=== PATIENT | female | born 1965 | race Caucasian/White ===

== ENCOUNTER 2016-11-05 19:27 | Inpatient (IN) | payer OTHER ==
[~2016-11-05] VITALS: Ht 170.2 cm; Wt 83.1 kg
[~2016-11-05 19:27] MED LIST: ACET-1256 PO; AMPH10TA2 PO; AMPH30CA3 PO; ARTICHOKE EXTRACT PO; ASPI81TA28 PO; ATV1 PO; BIOTCAP2 PO; BUME1TAB PO; CHOL100010 PO; CLR10 PO; DLC5 OR; INSUINJ12 SC; INSUINJ12 SQ; LINA1CAP PO; METO-157 PO; METO25TA56 PO; NVLGI SC; OMEGCAP2 PO; ONDA8TAB7 PO; PANT40TA PO; PREN1TAB29 PO; PTDOPS OPB; THY/30 PO; TRVOPS OPB; VORT1TAB3 PO; ZNTT/150 PO
--- NOTE | 2016-11-05 19:46 | EMERGENCY ROOM VISIT NOTE ---
History Report prepared by Millie: Roman Morales Under the Supervision of: Dr. Kumar Menjivar D.O. First contact with patient: 19:38 Chief Complaint: ABNORMAL LABS Stated Complaint: HIGH POSTASSIUM-REFERRED History of Present Illness The patient is a 51 year old female who presents to the Emergency Room with complaints of abnormal labs that began over the past couple of weeks. The patient's potassium level is 5.8. Over the past weeks, her kidney function has been worsening. She has a history of stage three kidney disease, CHF, and fluid retention. She was referred her by her PCP. She is taking Bumex currently for her kidney function. Her kidney's have been strained ever since she had a CABG in 2012. She is currently having leg edema and shortness of breath. She denies any chest pain. Source of History: patient Onset: past couple of weeks Position: other (global) Symptom Intensity: 5.8 Potassium Quality: other (Abnormal Labs) Timing: worsening Associated Symptoms: + SOB, No chest pain Note: She has leg edema. Review of Systems See HPI for pertinent positives & negatives. A total of 10 systems reviewed and were otherwise negative. Past Medical & Surgical Medical Problems: (1) ADD (attention deficit disorder) (2) Anxiety (3) CAD (coronary artery disease) (4) CHF exacerbation (5) CKD (chronic kidney disease) stage 3, GFR 30-59 ml/min (6) Depression (7) Diabetes mellitus type 1 (8) Dyslipidemia (9) GERD (gastroesophageal reflux disease) (10) Glaucoma (11) HTN (hypertension) (12) Hypothyroidism (13) Tobacco abuse Surgical Problems: (1) H/O nasal septoplasty (2) History of section (3) S/P CABG x 2 Family History Not pertinent due to age. Social History Smoking Status: Current Every Day Smoker Alcohol Use: none Drug Use: none Marital Status: Housing Status: lives with family Occupation Status: employed Current/Historical Medications Scheduled Acetaminophen (Tylenol), 1,000 MG PO QID Amphetamine-Dextroamphetamine 10MG (Adderall 10MG), 10 MG PO BID Amphetamine-Dextroamphetamine 30MG (Adderall Xr 30MG), 30 MG PO BID Aspirin (Aspirin Ec), 162 MG PO HS Biotin (Biotin 5000), 5 MG PO QPM Bisacodyl (Dulcolax *), 15 MG OR HS Bumetanide (Bumex), 1 MG PO Q2D Bumetanide (Bumex), 0.5 MG PO Q2D Cholecalciferol (Vitamin D), 5,000 INTER.UNIT PO QPM Cranberry (Vaccinium Macrocarp (Cranberry Extract), 500 MG PO QAM Estrog Conj/Medryoxyprog Acet (Prempro 0.3MG/1.5MG), 1 TAB PO QAM Insulin Aspart (Novolog), 1 UNIT SC AC Insulin Detemir (Levemir), 14 UNITS SQ BID Linaclotide (Linzess), 145 MCG PO QAM Liothyronine Sodium (Liothyronine Sodium), 10 MCG PO QAM Loratadine (Claritin), 10 MG PO QAM Lorazepam (Ativan *), 1 MG PO HS Metoclopramide Hcl (Reglan), 10 MG PO QID Metoprolol Tartrate (Lopressor) (Lopressor), 1.5 TAB PO BID Olopatadine Hydrochloride (Pataday), 1 DROPS OPB DAILY Ondansetron Tab (Zofran), 8 MG PO TID Pantoprazole (Protonix), 40 MG PO BID Prasterone (Dhea) (Dhea 50), 50 MG PO DAILY Ranitidine (Zantac), 150 MG PO BID Thyroid (Wp Thyroid), 65 MG PO QAM Travoprost (Travatan Oph Soln 0.004% *), 1 DROP OPB HS Vortioxetine HBr (Trintellix), 30 MG PO QAM Allergies Coded Allergies: Penicillins (Verified Allergy, Intermediate, BLOTCHY SKIN/ ITCHY, 11/05/16) Vancomycin (Unverified Allergy, Intermediate, SHORTNESS OF BREATH, 11/05/16) Clopidogrel (Verified Allergy, Mild, rash, 11/05/16) rash due to Plavix or ertapenem Ertapenem (Verified Allergy, Mild, rash, 11/05/16) rash due to Plavix or ertapenem? Cephalosporins (Verified Allergy, Unknown, CECLOR-UNKNOWN, 11/05/16) Erythromycin (Unverified Allergy, Unknown, FROM H AND P-RASH, 11/05/16) Statins (Unverified Allergy, Unknown, MYALGIA, 11/05/16) Codeine (Verified Adverse Reaction, Unknown, VOMITING, 3/6/17) Nitrofurantoin (Unverified Adverse Reaction, Unknown, vomiting, 11/05/16) Pregabalin (Unverified Adverse Reaction, Unknown, VERY EMOTIONAL CRYING, ) Physical Exam Vital Signs Date Time Temp Pulse Resp B/P Pulse Ox O2 Delivery O2 Flow Rate FiO2 11/05/16 20:55 85 11/05/16 20:54 85 20 169/88 97 Room Air 11/05/16 19:33 37.1 94 18 166/76 99 Room Air Physical Exam GENERAL: Patient is awake, alert, and in no acute distress. Patient is resting comfortably and showing no signs of anxiety EYES: The conjunctivae are clear. The pupils are round and reactive. EARS, NOSE, MOUTH AND THROAT: The nose is without any evidence of any deformity. Mucous membranes are dry tongue is midline NECK: The neck is nontender and supple. RESPIRATORY: Diminished with rales at both bases. CARDIOVASCULAR: Regular rate and rhythm noted there no murmurs rubs or gallops normal S1 normal S2 GASTROINTESTINAL: The abdomen is soft. Bowel sounds are present in all quadrants. Abdomen is nontender MUSCULOSKELETAL/EXTREMITIES: There is no evidence of gross deformity full range of motion is noted in the hips and shoulders SKIN: There is no obvious evidence of any rash. There are no petechiae, pallor or cyanosis noted. Trace pedal edema bilaterally. NEUROLOGIC: Patient is awake alert and oriented x3. Medical Decision & Procedures ER Provider Diagnostic Interpretation: X-ray results as stated below per interpretation by me and the radiologist. SINGLE VIEW CHEST CLINICAL HISTORY: Hyperkalemia. FINDINGS: An AP, portable, upright chest radiograph is compared to study dated 12/14/2015. The examination is mildly degraded by portable technique and patient rotation. The patient is status post midline sternotomy. The heart is enlarged and there is atherosclerotic calcification of the thoracic aorta. Mild pulmonary vascular congestion is observed. There are small pleural effusions with bibasilar consolidation. No pneumothorax is seen. The skeletal structures are osteopenic. The bony thorax is grossly intact. IMPRESSION: 1. Cardiomegaly with evidence of mild congestive failure. 2. Small pleural effusions with bibasilar consolidation. This likely represents atelectasis. Correlate clinically for evidence of a superimposed infectious/inflammatory pneumonitis. Electronically signed by: Jose Villarreal M.D. 11/05/2016 8:03 PM Dictated Date/Time: 11/05/2016 8:01 PM Laboratory Results 11/05/16 20:05 Red Blood Count 3.46, Mean Corpuscular Volume 91.6, Mean Corpuscular Hemoglobin 30.6, Mean Corpuscular Hemoglobin Concent 33.4, Mean Platelet Volume 9.1, Neutrophils (%) (Auto) 63.0, Lymphocytes (%) (Auto) 27.6, Monocytes (%) (Auto) 4.8, Eosinophils (%) (Auto) 3.9, Basophils (%) (Auto) 0.6, Neutrophils # (Auto) 5.73, Lymphocytes # (Auto) 2.51, Monocytes # (Auto) 0.44, Eosinophils # (Auto) 0.35, Basophils # (Auto) 0.05 11/05/16 20:05 Test 11/05/16 20:05 11/05/16 20:41 White Blood Count 9.09 K/uL (4.8-10.8) Red Blood Count 3.46 M/uL (4.2-5.4) Hemoglobin 10.6 g/dL (12.0-16.0) Hematocrit 31.7 % (37-47) Mean Corpuscular Volume 91.6 fL (80-100) Mean Corpuscular Hemoglobin 30.6 pg (25-34) Mean Corpuscular Hemoglobin Concent 33.4 g/dl (32-36) Platelet Count 275 K/uL (130-400) Mean Platelet Volume 9.1 fL (7.4-10.4) Neutrophils (%) (Auto) 63.0 % Lymphocytes (%) (Auto) 27.6 % Monocytes (%) (Auto) 4.8 % Eosinophils (%) (Auto) 3.9 % Basophils (%) (Auto) 0.6 % Neutrophils # (Auto) 5.73 K/uL (1.4-6.5) Lymphocytes # (Auto) 2.51 K/uL (1.2-3.4) Monocytes # (Auto) 0.44 K/uL (0.11-0.59) Eosinophils # (Auto) 0.35 K/uL (0-0.5) Basophils # (Auto) 0.05 K/uL (0-0.2) RDW Standard Deviation 43.1 fL (36.4-46.3) RDW Coefficient of Variation 12.8 % (11.5-14.5) Immature Granulocyte % (Auto) 0.1 % Immature Granulocyte # (Auto) 0.01 K/uL (0.00-0.02) Prothrombin Time 9.7 SECONDS (9.0-12.0) Prothromb Time International Ratio 0.9 (0.9-1.1) Activated Partial Thromboplast Time 24.1 SECONDS (21.0-31.0) Partial Thromboplastin Ratio 0.9 Anion Gap 11.0 mmol/L (3-11) Est Creatinine Clear Calc Drug Dose 36.5 ml/min Estimated GFR () 32.4 Estimated GFR (Non- 28.0 BUN/Creatinine Ratio 19.0 (10-20) Calcium Level 9.2 mg/dl (8.5-10.1) Phosphorus Level 4.8 mg/dl (2.5-4.9) Magnesium Level 2.1 mg/dl (1.8-2.4) Total Bilirubin 0.2 mg/dl (0.2-1) Direct Bilirubin < 0.1 mg/dl (0-0.2) Aspartate Amino Transf (AST/SGOT) 20 U/L (15-37) Alanine Aminotransferase (ALT/SGPT) 54 U/L (12-78) Alkaline Phosphatase 108 U/L (45-117) Total Creatine Kinase 342 U/L (26-192) Creatine Kinase MB 10.3 ng/ml (0.5-3.6) Creatine Kinase MB Ratio 3.0 (0-3.0) Troponin I 0.054 ng/ml (0-0.045) Pro-B-Type Natriuretic Peptide 66710 pg/ml (0-900) Total Protein 6.8 gm/dl (6.4-8.2) Albumin 3.9 gm/dl (3.4-5.0) Lipase 107 U/L (73-393) Urine Color YELLOW Urine Appearance CLEAR (CLEAR) Urine pH 5.0 (4.5-7.5) Urine Specific [place] 1.014 (1.000-1.030) Urine Protein 3+ (NEG) Urine Glucose (UA) 1+ (NEG) Urine Ketones NEG (NEG) Urine Occult Blood 2+ (NEG) Urine Nitrite NEG (NEG) Urine Bilirubin NEG (NEG) Urine Urobilinogen NEG (NEG) Urine Leukocyte Esterase NEG (NEG) Urine WBC (Auto) 1-5 /hpf (0-5) Urine RBC (Auto) 10-30 /hpf (0-4) Urine Hyaline Casts (Auto) 1-5 /lpf (0-5) Urine Epithelial Cells (Auto) 10-20 /lpf (0-5) Urine Bacteria (Auto) NEG (NEG) Laboratory results per my review. ECG Indication: other (Abnormal labs) Rate (beats per minute): 87 Rhythm: normal sinus Findings: RBBB (pattern noted), T-wave inversion (bilateral), no ectopy Comparison ECG Date: December, Change: T-wave inversions are new. ED Course 1937: The patient was evaluated in room B12. A complete history and physical examination were performed. 2055: The patient's potassium level is 5.3 and her creatinine is 2. 2136: Upon reevaluation, the patient is resting. I discussed results and treatment plan with her. She verbalizes agreement and understanding. [facility] The patient will be evaluated for further management and care. Medical Decision Differential diagnosis: Etiologies such as infections, reactive airway disease, pneumonia, pneumothorax , COPD, CHF, cardiac ischemia, pulmonary embolism, musculoskeletal, gastrointestinal, as well as others were entertained. Nursing notes reviewed. The patient's previous laboratory studies were also reviewed. The patient is a 51-year-old female who presented to the emergency department for an evaluation of shortness of breath. The patient states that she's been having problems with her renal function lately. She is had her medications changed recently to try to accommodate her worsening renal function. She had laboratory studies done as an outpatient which revealed an elevated potassium. Her creatinine continues to elevate. Her potassium was somewhat improved at this time. The patient's EKG showed changes which could be related to ischemia. The patient was reevaluated multiple times. I discussed the patient's laboratory radiographic studies with her including her elevated troponin and her abnormal EKG. I discussed her case with the on-call [facility]ist group. They have agreed to evaluate the patient in the emergency Department for further management and disposition. Impression Primary Impression: SOB (shortness of breath) Additional Impressions: Abnormal ECG Elevated troponin Acute kidney injury Hyperkalemia Scribe Attestation The scribe's documentation has been prepared under my direction and personally reviewed by me in its entirety. I confirm that the note above accurately reflects all work, treatment, procedures, and medical decision making performed by me. Departure Information Dispostion Being Evaluated By Hospitalist Referrals Devon Biggs D.O. (PCP) Patient Instructions [facility] Problem Qualifiers
--- NOTE | 2016-11-05 20:04 | DIAGNOSTIC IMAGING REPORT ---
SINGLE VIEW CHEST CLINICAL HISTORY: Hyperkalemia. FINDINGS: An AP, portable, upright chest radiograph is compared to study dated 12/14/2015. The examination is mildly degraded by portable technique and patient rotation. The patient is status post midline sternotomy. The heart is enlarged and there is atherosclerotic calcification of the thoracic aorta. Mild pulmonary vascular congestion is observed. There are small pleural effusions with bibasilar consolidation. No pneumothorax is seen. The skeletal structures are osteopenic. The bony thorax is grossly intact. IMPRESSION: 1. Cardiomegaly with evidence of mild congestive failure. 2. Small pleural effusions with bibasilar consolidation. This likely represents atelectasis. Correlate clinically for evidence of a superimposed infectious/inflammatory pneumonitis. Electronically signed by: Jose Villarreal M.D. 11/05/2016 8:03 PM Dictated Date/Time: 11/05/2016 8:01 PM
[2016-11-05 20:18] LABS: BASO % 0.6 %; BASO ABS # 0.05 K/uL (0-0.2); COMPLETE YES; EOS % 3.9 %; HEMATOCRIT 31.7 % (37-47); IG% 0.1 %; LYMPH % 27.6 %; LYMPH ABS # 2.51 K/uL (1.2-3.4); MEAN CELL VOLUME 91.6 fL (80-100); MEAN CORPUSCULAR HEMOGLOBIN 30.6 pg (25-34); MEAN CORPUSCULAR HGB CONC 33.4 g/dl (32-36); MEAN PLATELET VOLUME 9.1 fL (7.4-10.4); MONO % 4.8 %; PLATELET COUNT 275 K/uL (130-400); RED BLOOD COUNT 3.46 M/uL (4.2-5.4); WHITE BLOOD COUNT 9.09 K/uL (4.8-10.8)
[2016-11-05 20:28] LABS: INR 0.9 (0.9-1.1); PARTIAL THROMBOPLASTIN RATIO 0.9; PROTHROMBIN TIME (PATIENT) 9.7 SECONDS (9.0-12.0)
[2016-11-05 20:42] LABS: ALT/SGPT 54 U/L (12-78); BLOOD UREA NITROGEN 38 mg/dl (7-18); CALCIUM 9.2 mg/dl (8.5-10.1); CARBON DIOXIDE 21 mmol/L (21-32); CHLORIDE 109 mmol/L (98-107); GLUCOSE 228 mg/dl (70-99); MAGNESIUM 2.1 mg/dl (1.8-2.4); POTASSIUM 5.3 mmol/L (3.5-5.1); SODIUM 141 mmol/L (136-145)
[2016-11-05] MEDS ORDERED: BUME1TAB PO (20:45)
[2016-11-05] MEDS ORDERED: THYR1TAB PO (20:45)
[2016-11-05] MEDS ORDERED: LIOT5TAB9 PO (20:47)
[2016-11-05] MEDS ORDERED: PRAS50CA3 PO (20:47)
[2016-11-05] MEDS ORDERED: CRAN250T PO (20:47)
[2016-11-05] MEDS ORDERED: CONJ0.3T3 PO (20:47)
[2016-11-05 21:02] LABS: URINE APPEARANCE CLEAR (CLEAR); URINE BILIRUBIN NEG (NEG); URINE COLOR YELLOW; URINE NITRITE NEG (NEG); URINE SPECIFIC GRAVITY 1.014 (1.000-1.030); UROBILINOGEN NEG (NEG)
[2016-11-05 21:07] LABS: MANUAL MICROSCOPIC REQUIRED? NO; REVIEW REQ? NO
[2016-11-05 21:27] LABS: ALKALINE PHOSPHATASE 108 U/L (45-117); AST/SGOT 20 U/L (15-37); PHOSPHORUS 4.8 mg/dl (2.5-4.9)
--- NOTE | 2016-11-05 22:23 | History and Physical ---
History & Physical Date & Time of Service: Nov 05, 2016 at 22:08 Chief Complaint: Sent to Hospital for High Potassium Primary Care Physician: Devon Biggs D.O. History of Present Illness 51 year female who was referred to the ER for worsening renal function and high potassium. Patient was seen in the cardiology office a couple of weeks ago and was noted to have high blood pressure and increased BLLE edema. At that time, metoprolol was increased and she was instructed to take an additional dose of Bumex a couple of times per week for edema. Labs were then obtained that showed worsening renal function and high potassium. Patient was then instructed to not take any additional Bumex and to decrease the dose. She reports she never took any additional doses. Despite these medication changes, patient's renal function has continued to worsen and hyperkalemia has persisted. She was then referred to the ER for further evaluation. Patient notes increasing shortness of breath over the past few weeks. She notes a dry and moist but non productive cough as well. Edema to the BLLE has been present for the past month. She does not weigh herself on the daily basis. She notes occasional orthopnea. She denies chest pain. No lightheadedness, dizziness, diaphoresis, or syncopal events. She denies abdominal pain, nausea, vomiting, and diarrhea. No fever or chills. She denies urinary symptoms. In the ER patient's creat is 2.0 (baseline mid 1's), K+ is 5.3. Trop is mildly elevated at 0.054. EKG shows new T-wave inversions laterally. Past Medical/Surgical History Medical Problems: (1) ADD (attention deficit disorder) Status: Chronic (2) Anxiety Status: Chronic (3) CAD (coronary artery disease) Permanent Comment: s/p CABG Status: Chronic (4) CKD (chronic kidney disease) stage 3, GFR 30-59 ml/min Status: Chronic (5) Depression Permanent Comment: TMS therapy Status: Chronic (6) Diabetes mellitus type 1 Status: Chronic (7) Dyslipidemia Status: Chronic (8) GERD (gastroesophageal reflux disease) Status: Chronic (9) Glaucoma Status: Chronic (10) HTN (hypertension) Status: Chronic (11) Hypothyroidism Status: Chronic (12) Tobacco abuse Status: Chronic Surgical Problems: (1) H/O nasal septoplasty Status: Resolved (2) History of section Status: Resolved (3) S/P CABG x 2 Permanent Comment: Jason Mayo 12/2012 Status: Resolved Family History FH: CAD (coronary artery disease) FATHER (NH at age 47, CABG x 4 ) Social History Smoking Status: Current Every Day Smoker Alcohol Use: none Immunizations History of Influenza Vaccine: Yes Influenza Vaccine Date: Jul 22, 2016 History of Tetanus Vaccine?: Yes Tetanus Immunization Date: Nov 17, 2010 History of Pneumococcal: Yes Pneumococcal Date: Nov 28, 2005 History of Hepatitis B Vaccine: Yes Hepatitis Immunization Date: Feb 24, 2003 Multi-Drug Resistant Organisms History of MDRO: No Allergies Coded Allergies: Penicillins (Verified Allergy, Intermediate, BLOTCHY SKIN/ ITCHY, 11/05/16) Vancomycin (Unverified Allergy, Intermediate, SHORTNESS OF BREATH, 11/05/16) Clopidogrel (Verified Allergy, Mild, rash, 11/05/16) rash due to Plavix or ertapenem Ertapenem (Verified Allergy, Mild, rash, 11/05/16) rash due to Plavix or ertapenem? Cephalosporins (Verified Allergy, Unknown, CECLOR-UNKNOWN, 11/05/16) Erythromycin (Unverified Allergy, Unknown, FROM H AND P-RASH, 11/05/16) Statins (Unverified Allergy, Unknown, MYALGIA, 11/05/16) Codeine (Verified Adverse Reaction, Unknown, VOMITING, 11/05/16) Nitrofurantoin (Unverified Adverse Reaction, Unknown, vomiting, 11/05/16) Pregabalin (Unverified Adverse Reaction, Unknown, VERY EMOTIONAL CRYING, ) Home Medications Scheduled Acetaminophen (Tylenol), 1,000 MG PO QID Amphetamine-Dextroamphetamine 10MG (Adderall 10MG), 10 MG PO BID Amphetamine-Dextroamphetamine 30MG (Adderall Xr 30MG), 30 MG PO BID Aspirin (Aspirin Ec), 162 MG PO HS Biotin (Biotin 5000), 5 MG PO QPM Bisacodyl (Dulcolax *), 15 MG OR HS Bumetanide (Bumex), 1 MG PO Q2D Bumetanide (Bumex), 0.5 MG PO Q2D Cholecalciferol (Vitamin D), 5,000 INTER.UNIT PO QPM Cranberry (Vaccinium Macrocarp (Cranberry Extract), 500 MG PO QAM Estrog Conj/Medryoxyprog Acet (Prempro 0.3MG/1.5MG), 1 TAB PO QAM Insulin Aspart (Novolog), 1 UNIT SC AC Insulin Detemir (Levemir), 14 UNITS SQ BID Linaclotide (Linzess), 145 MCG PO QAM Liothyronine Sodium (Liothyronine Sodium), 10 MCG PO QAM Loratadine (Claritin), 10 MG PO QAM Lorazepam (Ativan *), 1 MG PO HS Metoclopramide Hcl (Reglan), 10 MG PO QID Metoprolol Tartrate (Lopressor) (Lopressor), 1.5 TAB PO BID Olopatadine Hydrochloride (Pataday), 1 DROPS OPB DAILY Ondansetron Tab (Zofran), 8 MG PO TID Pantoprazole (Protonix), 40 MG PO BID Prasterone (Dhea) (Dhea 50), 50 MG PO DAILY Ranitidine (Zantac), 150 MG PO BID Thyroid (Wp Thyroid), 65 MG PO QAM Travoprost (Travatan Oph Soln 0.004% *), 1 DROP OPB HS Vortioxetine HBr (Trintellix), 30 MG PO QAM Review of Systems 10 point review of systems was completed with the pertinent positives and negatives noted per the HPI Physical Exam Vital Signs Date Time Temp Pulse Resp B/P Pulse Ox O2 Delivery O2 Flow Rate FiO2 11/05/16 20:55 85 11/05/16 20:54 85 20 169/88 97 Room Air 11/05/16 19:33 37.1 94 18 166/76 99 Room Air General Appearance: no apparent distress Head: normocephalic Eyes: normal inspection ENT: hearing grossly normal Neck: supple, no JVD Respiratory/Chest: no respiratory distress, + crackles (faint, left base) Cardiovascular: regular rate, rhythm, + pertinent finding (+1 pitting edema BLLE) Abdomen/GI: normal bowel sounds, non tender, soft Extremities/Musculoskelatal: normal inspection, no calf tenderness Neurologic/Psych: no motor/sensory deficits, alert, normal mood/affect, oriented x 3 Skin: normal color, warm/dry Diagnostics Laboratory Results Results Past 24 Hours Test 11/05/16 20:05 11/05/16 20:41 Range/Units White Blood Count 9.09 4.8-10.8 K/uL Red Blood Count 3.46 4.2-5.4 M/uL Hemoglobin 10.6 12.0-16.0 g/dL Hematocrit 31.7 37-47 % Mean Corpuscular Volume 91.6 80-100 fL Mean Corpuscular Hemoglobin 30.6 25-34 pg Mean Corpuscular Hemoglobin Concent 33.4 32-36 g/dl Platelet Count 275 130-400 K/uL Mean Platelet Volume 9.1 7.4-10.4 fL Neutrophils (%) (Auto) 63.0 % Lymphocytes (%) (Auto) 27.6 % Monocytes (%) (Auto) 4.8 % Eosinophils (%) (Auto) 3.9 % Basophils (%) (Auto) 0.6 % Neutrophils # (Auto) 5.73 1.4-6.5 K/uL Lymphocytes # (Auto) 2.51 1.2-3.4 K/uL Monocytes # (Auto) 0.44 0.11-0.59 K/uL Eosinophils # (Auto) 0.35 0-0.5 K/uL Basophils # (Auto) 0.05 0-0.2 K/uL RDW Standard Deviation 43.1 36.4-46.3 fL RDW Coefficient of Variation 12.8 11.5-14.5 % Immature Granulocyte % (Auto) 0.1 % Immature Granulocyte # (Auto) 0.01 0.00-0.02 K/uL Prothrombin Time 9.7 9.0-12.0 SECONDS Prothromb Time International Ratio 0.9 0.9-1.1 Activated Partial Thromboplast Time 24.1 21.0-31.0 SECONDS Partial Thromboplastin Ratio 0.9 Sodium Level 141 136-145 mmol/L Potassium Level 5.3 3.5-5.1 mmol/L Chloride Level 109 98-107 mmol/L Carbon Dioxide Level 21 21-32 mmol/L Anion Gap 11.0 3-11 mmol/L Blood Urea Nitrogen 38 7-18 mg/dl Creatinine 2.00 0.60-1.20 mg/dl Est Creatinine Clear Calc Drug Dose 36.5 ml/min Estimated GFR () 32.4 Estimated GFR (Non- 28.0 BUN/Creatinine Ratio 19.0 10-20 Random Glucose 228 70-99 mg/dl Calcium Level 9.2 8.5-10.1 mg/dl Phosphorus Level 4.8 2.5-4.9 mg/dl Magnesium Level 2.1 1.8-2.4 mg/dl Total Bilirubin 0.2 0.2-1 mg/dl Direct Bilirubin < 0.1 0-0.2 mg/dl Aspartate Amino Transf (AST/SGOT) 20 15-37 U/L Alanine Aminotransferase (ALT/SGPT) 54 12-78 U/L Alkaline Phosphatase 108 45-117 U/L Total Creatine Kinase 342 26-192 U/L Creatine Kinase MB 10.3 0.5-3.6 ng/ml Creatine Kinase MB Ratio 3.0 0-3.0 Troponin I 0.054 0-0.045 ng/ml Pro-B-Type Natriuretic Peptide 62164 0-900 pg/ml Total Protein 6.8 6.4-8.2 gm/dl Albumin 3.9 3.4-5.0 gm/dl Lipase 107 73-393 U/L Urine Color YELLOW Urine Appearance CLEAR CLEAR Urine pH 5.0 4.5-7.5 Urine Specific [place] 1.014 1.000-1.030 Urine Protein 3+ NEG Urine Glucose (UA) 1+ NEG Urine Ketones NEG NEG Urine Occult Blood 2+ NEG Urine Nitrite NEG NEG Urine Bilirubin NEG NEG Urine Urobilinogen NEG NEG Urine Leukocyte Esterase NEG NEG Urine WBC (Auto) 1-5 0-5 /hpf Urine RBC (Auto) 10-30 0-4 /hpf Urine Hyaline Casts (Auto) 1-5 0-5 /lpf Urine Epithelial Cells (Auto) 10-20 0-5 /lpf Urine Bacteria (Auto) NEG NEG Diagnostic Radiology CXR IMPRESSION: 1. Cardiomegaly with evidence of mild congestive failure. 2. Small pleural effusions with bibasilar consolidation. This likely represents atelectasis. Correlate clinically for evidence of a superimposed infectious/inflammatory pneumonitis. Impression Assessment and Plan please refer to Dr. Hebert's addendum for A&P Assessment/Plan IM ATTENDING : Patient seen and examined. Preceding documentation by WAI Quiroz, reviewed. FINAL ASSESSMENT AND PLAN as follows : 1. Decompensated heart failure history of chronic diastolic heart failure (EF of 55% from a TTE December 2015) hyperkalemia, acute renal failure on chronic renal insufficiency ? cardiorenal syndrome 2. hx ischemic cardiomyopathy, hx CAD sp CABG 3. Peripheral vascular disease as per records. 4 hypertension slightly elevated 6. chronic anemia secondary to chronic kidney disease 7. DM1, suboptimal control as of recent outpx HgA1c (8.4 last July 2016) 8. DM gastroparesis on meds 9. ADD/Bipolar DSO, stable on meds 10. ongoing tobacco abuse PCU. Lasix one dose now Strict IOS, daily weights, CHF education 2D echo. Cardiology consult RE decompensated heart failure. Nephrology consult, ARF on CRI. Basal insulin, ISS BG goal 140-180, carb count coverage indicated for suboptimal blood sugar control. px due for HgA1c recheck Pharmacy consult for glycemic control. May need diabetic education if w. worsening of HgA1c Nicotine patch. DVT prophylaxis, heparin subQ. Full code.
[2016-11-05] MEDS ORDERED: INSULIN ASPART 100 UNITS/ML 3 ML PEN SC ONE (22:52)
[2016-11-05] MEDS ORDERED: LEVALBUTEROL/IPRATROPIUM NEB INH STA (22:52)
[2016-11-05] MEDS ORDERED: HYDROmorphone INJ 0.5 MG/0.5 ML SYR IV PRN (23:00)
[2016-11-05] MEDS ORDERED: NITROGLYCERIN 0.4 MG SL PER TAB CHARGE SL PRN (23:00)
[2016-11-05] MEDS ORDERED: ACETAMINOPHEN 325 MG TAB PO PRN (23:00)
[2016-11-05] MEDS ORDERED: GLUCOSE 40% GEL 15 GM TUBE PO PRN (23:00)
[2016-11-05] MEDS ORDERED: GLUCAGON FOR INJ 1 MG VIAL SQ PRN (23:00)
[2016-11-05] MEDS ORDERED: LORAZEPAM 1 MG TAB PO PRN (23:00)
[2016-11-05] MEDS ORDERED: TRAMADOL HCL 50 MG TAB PO PRN (23:00)
[2016-11-05] MEDS ORDERED: LEVALBUTEROL/IPRATROPIUM NEB INH PRN (23:00)
[2016-11-05] MEDS ORDERED: PROMETHAZINE HCL INJ 12.5 MG in SODIUM CHLORIDE 0.9% 50ML 50 ML IV PRN (23:00)
[2016-11-05] MEDS ORDERED: DEXTROSE 50% 50 ML SYR IV PRN (23:00)
[2016-11-05] MEDS ORDERED: GLUCOSE 10 TABS/TUBE PO PRN (23:00)
[2016-11-05] MEDS ORDERED: FUROSEMIDE INJ 60 MG in SYRINGE 0 ML IV ONE (23:15)
[2016-11-05 23:22] VITALS: BP 184/76; PULSE 92; TEMP 36.9; O2SAT 98; BMI 28.9
[2016-11-05] MEDS ORDERED: IPRATROPIUM BROMIDE NEB SOLN 0.02% 2.5 ML VIAL INH STA (23:36)
[2016-11-05] MEDS ORDERED: LEVALBUTEROL 1.25MG/0.5ML NEB INH STA (23:36)
[2016-11-05 23:39] VITALS: BP 145/74; PULSE 78; TEMP 36.8; O2SAT 95
[2016-11-05] MEDS ORDERED: LEVALBUTEROL 1.25MG/0.5ML NEB INH PRN (23:45)
[2016-11-05] MEDS ORDERED: IPRATROPIUM BROMIDE NEB SOLN 0.02% 2.5 ML VIAL INH PRN (23:45)
[2016-11-05] MEDS ORDERED: PHARMACY GLYCEMIC MGMT CONSULT PRN (23:45)
[2016-11-05 23:52] VITALS: PULSE 92; O2SAT 95
[2016-11-05] MEDS ORDERED: METOPROLOL TARTRATE 25 MG TAB PO ONE (23:59)
[2016-11-06] MEDS ORDERED: LINZESS~ORDER AWAITING ACTION SCH
[2016-11-06] MEDS: PATADAY~ORDER AWAITING ACTION SCH ×4 (00:48→23:28)
[2016-11-06 01:03] LABS: BUN/CREATININE RATIO 19.7 (10-20); CALCIUM 9.3 mg/dl (8.5-10.1); CREATININE 1.8 mg/dl (0.60-1.20); POTASSIUM 4.7 mmol/L (3.5-5.1)
[2016-11-06] MEDS ORDERED: INSULIN ASPART 100 UNITS/ML 3 ML PEN SC SCH (02:00)
[2016-11-06 03:54] VITALS: BP 146/76; PULSE 81; TEMP 36.8; O2SAT 95
--- NOTE | 2016-11-06 04:38 | HISTORY & PHYSICAL EXAMINATION ---
DATE OF ADMISSION: 11/05/2016 IM ATTENDING : Patient seen and examined. Preceding documentation by WAI Quiroz, reviewed. FINAL ASSESSMENT AND PLAN as follows : 1. Decompensated heart failure history of chronic diastolic heart failure (EF of 55% from a TTE December 2015) hyperkalemia, acute renal failure on chronic renal insufficiency ? cardiorenal syndrome 2. hx ischemic cardiomyopathy, hx CAD sp CABG 3. Peripheral vascular disease as per records. 4 hypertension slightly elevated 6. chronic anemia secondary to chronic kidney disease 7. DM1, suboptimal control as of recent outpx HgA1c (8.4 last July 2016) 8. DM gastroparesis on meds 9. ADD/Bipolar DSO, stable on meds 10. ongoing tobacco abuse PCU. Lasix one dose now Strict IOS, daily weights, CHF education 2D echo. Cardiology consult RE decompensated heart failure. Nephrology consult, ARF on CRI. Basal insulin, ISS BG goal 140-180, carb count coverage indicated for suboptimal blood sugar control. px due for HgA1c recheck Pharmacy consult for glycemic control. May need diabetic education if w. worsening of HgA1c Nicotine patch. DVT prophylaxis, heparin subQ. Full code. MTDD
[2016-11-06 05:41] LABS: BASO % 0.6 %; BASO ABS # 0.06 K/uL (0-0.2); COMPLETE YES; EOS % 3.7 %; HEMATOCRIT 32.1 % (37-47); IG% 0.3 %; LYMPH % 31.4 %; LYMPH ABS # 3.39 K/uL (1.2-3.4); MEAN CORPUSCULAR HEMOGLOBIN 30.4 pg (25-34); MEAN CORPUSCULAR HGB CONC 32.7 g/dl (32-36); MEAN PLATELET VOLUME 9.6 fL (7.4-10.4); MONO % 6.8 %; NEUT % 57.2 %; PLATELET COUNT 271 K/uL (130-400); RED BLOOD COUNT 3.45 M/uL (4.2-5.4); WHITE BLOOD COUNT 10.81 K/uL (4.8-10.8)
[2016-11-06 06:14] LABS: BUN/CREATININE RATIO 21.3 (10-20); CALCIUM 9.2 mg/dl (8.5-10.1); CREATININE 1.6 mg/dl (0.60-1.20); POTASSIUM 4.3 mmol/L (3.5-5.1)
[2016-11-06] MEDS: HEPARIN SOD 5000 UNIT/0.5 ML CARP SQ SCH ×3 (06:45→20:31)
[2016-11-06] MEDS: INSULIN ASPART 100 UNITS/ML 3 ML PEN SC SCH ×4 (07:30→20:31)
[2016-11-06] MEDS: ARMOUR THYROID 30 MG TAB PO SCH (07:31)
[2016-11-06] MEDS: NICOTINE 21 MG/24 HR TDSY TD SCH (07:32)
[2016-11-06] MEDS: METOCLOPRAMIDE HCL 10 MG TAB PO SCH ×4 (07:37→20:16)
[2016-11-06] MEDS: LIOTHYRONINE SODIUM 5 MCG TAB PO SCH (07:37)
[2016-11-06] MEDS: RANITIDINE HCL 150 MG TAB PO SCH ×2 (07:38→20:15)
[2016-11-06] MEDS: LORATADINE 10 MG TAB PO SCH (07:38)
[2016-11-06] MEDS: PANTOprazole SOD 40 MG TAB PO SCH ×2 (07:38→20:16)
[2016-11-06] MEDS: ONDANSETRON 8 MG TAB PO SCH ×3 (07:38→20:17)
[2016-11-06] MEDS: AMPHETAMINE ASP/SULF/DEXTRAMPH 10 MG TAB PO SCH ×2 (07:38→11:48)
[2016-11-06 07:41] LABS: ESTIMATED AVERAGE GLUCOSE 214 mg/dl; HA1C FLAG Normal (Normal)
[2016-11-06 07:46] VITALS: BP 161/78; PULSE 87; TEMP 36.9; O2SAT 95
[2016-11-06] MEDS: INSULIN DETEMIR FLEXPEN/FLEX TOUCH 100 UNITS/ML 3ML SC SCH ×2 (08:27→20:31)
[2016-11-06] MEDS ORDERED: METOPROLOL TARTRATE 25 MG TAB PO SCH (09:00)
--- NOTE | 2016-11-06 10:26 | NEPHROLOGY CONSULTATION ---
DATE OF CONSULTATION: 11/06/2016 ATTENDING OF RECORD: Dr. Judd. REASON FOR CONSULTATION: YVETTE. HISTORY OF PRESENT ILLNESS: This is a 51-year-old female last seen in the office with me in December of last year and has underlying CKD stage III with microalbuminuria from diabetes, hypertension, and tobacco abuse. The patient did have a history of type 1 diabetes for 40 years with retinopathy, neuropathy, and gastroparesis. Does have ischemic cardiomyopathy with an EF of 55% at last check with history of non-STEMI, bypass surgery in 2012. 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 Smokes about a pack a day. DOES NOT TOLERATE ACEs or ARBs, have tried multiple times in the past without success. The time that I saw the patient, creatinine was 1.5 with microalbuminuria, try and control the diabetes and high blood pressure as well as possible and encouraged her to quit smoking. The patient presents during this hospitalization with worsening kidney function and high potassium. The patient was recently seen several weeks ago by cardiology, noted to have worsening swelling and high blood pressure, and recommended to increase the Bumex to help with the swelling; however, repeat labs did show worsening kidney function and high potassium, so they decreased the dose of Bumex. The patient actually stopped any additional doses of Bumex. However, her kidney function continued to worsen and potassium levels continued to be elevated. Creatinine was 2 on admission with a potassium level of 5.3 and this morning creatinine is down to 1.6 with a potassium level of 4.3 with a troponin of 0.065. Echo was done, results pending. Chest x-ray shows cardiomegaly with evidence of mild congestive failure, small pleural effusions with bibasilar consolidation. The patient was given Lasix 60 mg IV x1 last night, urinating well, put out 1550 mL last night, and with the one dose of Lasix, creatinine has gone from 2 down to 1.6 and potassium level has improved down to 4.3. REVIEW OF SYSTEMS: No fevers or chills. Positive headaches since she has been in the hospital. Does have intermittent blurry vision which she attributes to changes in blood sugars. No dysphagia. No shortness of breath. No chest pain. No nausea or vomiting. No diarrhea or constipation. No hematuria or odor to the urine. No rash or itching. Positive neuropathy. Positive fatigue. All other review of systems otherwise negative. PAST MEDICAL HISTORY: Anxiety, coronary artery disease with history of bypass, CKD stage III with baseline creatinine around 1.5, type 1 diabetes with retinopathy, neuropathy and gastroparesis, hypertension, hypothyroidism, active tobacco use, hyperlipidemia, GERD. PAST SURGICAL HISTORY: Bypass x2 in 2012, , nasal septoplasty. FAMILY HISTORY: Significant for heart disease. SOCIAL HISTORY: Active smoker, a pack per day. No alcohol, no drugs. Lives at home with family. CURRENT MEDICATIONS: Amphetamine aspartate 10 mg p.o. b.i.d., aspirin 162 mg at night, Dulcolax 15 mg at night, heparin 5000 units subcu q. 8, sliding scale insulin, Levemir 14 units subcu b.i.d., Cytomel 10 mcg daily, Claritin 10 mg daily, Reglan 10 mg with meals and at night, Lopressor 37.5 mg p.o. b.i.d., Nicoderm patch, [place] Thyroid 60 mg daily, Zantac 150 mg p.o. b.i.d., Protonix 40 mg p.o. b.i.d., Zofran 8 mg p.o. t.i.d. PHYSICAL EXAMINATION: VITAL SIGNS: Temperature 36.9, pulse 87, respiratory rate is 18, blood pressure is 161/78, satting 95% on room air. GENERAL: Awake, alert, oriented x3. EYES: No scleral icterus. ENT: Moist mucous membranes. NECK: Supple. PULMONARY: Clear to auscultation. CARDIAC: Regular rate and rhythm. ABDOMEN: Bowel sounds positive. Soft, nontender. EXTREMITIES: Mild edema. NEUROLOGIC: Positive neuropathy. DERMATOLOGIC: No rash or ulcers noted. LABORATORIES: Sodium was 143, potassium 4.3, chloride is 110, bicarbonate is 21, BUN is 34, creatinine is 1.6, glucose 92, calcium is 9.2. Troponin 0.065. White count is 10, H\T\H 10 and 32, platelet count is 271. INR is 0.9. UA shows pH of 5, specific gravity 1.014, 3+ protein, 1+ glucose, 2+ blood, 10-30 RBCs. Albumin 3.9, phosphorus 4.8, magnesium 0.2. LFTs are normal. Hemoglobin A1c of 9.1. Creatinine last year was 1.4, was up to 1.7 on 10/15/2016, 1.8 on 10/18/2016, 1.8 on 11/02/2016. IMPRESSION AND PLAN: Chronic kidney disease stage III with baseline creatinine of around 1.5 with microalbuminuria secondary to diabetes, hypertension, active tobacco abuse, avoids NSAIDs. Creatinine did trend up mildly to 1.8 and potassium level did trend up to 5.7. Creatinine now back down to 1.6 and close to baseline kidney function. Unclear why kidney function transiently worsened. For now, would leave on current outpatient diuretic doses. The patient states she has been on hormone replacement therapy for the past several months, perhaps this may be contributing to fluid retention. She is also on multiple thyroid replacement medications with the last thyroid check 09/26/2016 with a free T3 of 2.4 and a free T4 of 1.13. I expect kidney function to slowly worsen over the years from her diabetes which is not well controlled with a hemoglobin A1c of 8.4 last checked in July as well as underlying hypertension and active tobacco abuse. Okay with creatinine trending up as needed to help control any types of swelling, did receive 1 dose of Lasix last night and creatinine did improve down to 1.6 with the diuretic dose. Cardiac function is optimized with the last EF of 55% and there are multiple factors that play a role in fluid retention in this patient, perhaps may have been dietary indiscretion. Thyroids appear appropriate, could be a side effect to one of the medications, i.e., hormone replacement therapy. However, volume status appears appropriate, kidney function back down to baseline, and potassium levels look good. From the kidney standpoint, would continue her outpatient regimen and repeat blood work in a week. Recommended to avoid high potassium foods and reviewed those with the patient. If possible, wean off the hormone replacement therapy, that may be of benefit. However, expect overall slow decline of kidney function through the years. This is not cardiorenal syndrome, the patient may retain fluid for other reasons, but her heart function is optimized, and any type of fluid retention more likely is from dietary indiscretion rather than issues with the heart. Case was discussed with Sandeep Self PA-C, of cardiology as well as Dr. Judd, the primary hospitalist, who are in agreement with the plan. I appreciate the consultation. [facility]
--- NOTE | 2016-11-06 10:40 | ECHOCARDIOGRAM REPORT ---
*NOTICE TO RECEIVING REPUBLICAN AGENCY This information is strictly Confidential and protected under [place] law. [place] law prohibits you from making any further disclosure of this information unless further disclosure is expressly permitted by the written consent of the person to whom it pertains or is authorized by law. A general authorization for the release of medical or other information is not sufficient for this purpose. Hospital accepts no responsibility if the information is made available to any other person, INCLUDING THE PATIENT. Interpretation Summary * Name: GRCEIA ROSADO Study Date: 11/06/2016 06:47 AM * Patient Location: [facility]\S\[address]215\S\1 * : 1965 (M/d/yyyy) Gender: Female Height: 67 in * Age: 51 yrs Ethnicity: [place] Weight: 184 lb * Ordering Physician: David Hebert * Referring Physician: Sandeep Self PA-C * Performed By: Claudio Franco RCS * * Reason For Study: CHF * BSA: 2.0 m2 * -- Conclusions -- * The left ventricle is normal in size. * There is mild concentric left ventricular hypertrophy. * There is mild to moderate apical wall hypokinesisinvolving the apical septum and inferior wall. * Left ventricular systolic function is normal. * Ejection Fraction = 55-60%. * There is no pericardial effusion. * Normal inferior vena cava diameter and respiratory variation suggests normal central venous pressure. * Doppler findings do not suggest pulmonary hypertension. Procedure Details * A complete two-dimensional transthoracic echocardiogram was performed (2D, M-mode, Doppler and color flow Doppler). Left Ventricle * The left ventricle is normal in size. * There is mild concentric left ventricular hypertrophy. * Ejection Fraction = 55-60%. * Left ventricular systolic function is normal. * There is mild to moderate apical wall hypokinesis. Right Ventricle * The right ventricle is normal in size and function. Atria * The left atrial size is normal. * Right atrial size is normal. * No ASD detected; PFO is not assessed. Mitral Valve * The mitral valve anatomy is normal. * There is no mitral valve stenosis. * There is trace mitral regurgitation. Tricuspid Valve * The tricuspid valve anatomy is normal. * There is no tricuspid stenosis. * There is trace tricuspid regurgitation. * Doppler findings do not suggest pulmonary hypertension. Aortic Valve * The aortic valve is trileaflet. * Aortic valve sclerosis mild, without significant aortic valvular stenosis. * No aortic regurgitation is present. Pulmonic Valve * The pulmonic valve is not well visualized. Great Vessels * The aortic root is normal size. Pericardium/Pleural * There is no pericardial effusion. Great Vessels * Normal inferior vena cava diameter and respiratory variation suggests normal central venous pressure. MMode 2D Measurements and Calculations IVSd 0.91 cm IVSs 1.3 cm LVIDd 4.4 cm LVIDs 2.8 cm LVPWd 0.93 cm LVPWs 1.3 cm IVS/LVPW 0.98 FS 35.7 % EDV(Teich) 89.1 ml ESV(Teich) 30.8 ml EF(Teich) 65.4 % EDV(cubed) 86.9 ml ESV(cubed) 23.1 ml EF(cubed) 73.4 % % IVS thick 45.3 % % LVPW thick 44.8 % LV mass(C)d 133.1 grams LV mass(C)dI 68.2 grams/m\S\2 LV mass(C)s 120.8 grams LV mass(C)sI 61.9 grams/m\S\2 CO(Teich) 4.7 l/min CI(Teich) 2.4 l/min/m\S\2 SV(Teich) 58.2 ml SI(Teich) 29.8 ml/m\S\2 CO(cubed) 5.2 l/min CI(cubed) 2.6 l/min/m\S\2 SV(cubed) 63.8 ml SI(cubed) 32.7 ml/m\S\2 Ao root diam 3.3 cm Ao root area 8.4 cm\S\2 ACS 1.5 cm LA dimension 3.7 cm LA/Ao 1.1 LVAd ap4 34.5 cm\S\2 LVLd ap4 8.5 cm EDV(MOD-sp4) 116.0 ml LVAs ap4 19.3 cm\S\2 LVLs ap4 7.4 cm ESV(MOD-sp4) 42.0 ml EF(MOD-sp4) 63.8 % LVAd ap2 35.2 cm\S\2 LVLd ap2 9.2 cm EDV(MOD-sp2) 113.0 ml LVAs ap2 20.8 cm\S\2 LVLs ap2 8.1 cm ESV(MOD-sp2) 46.0 ml EF(MOD-sp2) 59.3 % CO(MOD-sp4) 6.0 l/min CI(MOD-sp4) 3.1 l/min/m\S\2 SV(MOD-sp4) 74.0 ml SI(MOD-sp4) 37.9 ml/m\S\2 CO(MOD-sp2) 5.4 l/min CI(MOD-sp2) 2.8 l/min/m\S\2 SV(MOD-sp2) 67.0 ml SI(MOD-sp2) 34.3 ml/m\S\2 Doppler Measurements and Calculations MV E max jana 120.9 cm/sec MV A max jana 117.0 cm/sec MV E/A 1.0 MV P1/2t max jana 129.4 cm/sec MV P1/2t 100.4 msec MVA(P1/2t) 2.2 cm\S\2 MV dec slope 377.7 cm/sec\S\2 MV dec time 0.21 sec LV V1 max PG 4.1 mmHg LV V1 max 101.2 cm/sec PA V2 max 103.2 cm/sec PA max PG 4.4 mmHg TR max jana 263.3 cm/sec
--- NOTE | 2016-11-06 10:48 | Cardiology Consultation ---
Cardiology Consultation Date of Consultation: Nov 06, 2016 Requesting Physician: Puja Attending [employer]ag Truck Driver: Jose De Jesus (Sandeep Self PA-C) History of Present Illness Mrs. Zhang is a 51 year old female who is being seen at the request of Dr. Hebert. Reason for consultation is congestive heart failure. Mrs. Zhang notes requesting initiation of Prempro, prescribed through her primary care provider in July 2016. Approximately two months after initiation of Prempro she observed lower extremity peripheral edema. She was seen by the undersigned in routine outpatient evaluation in October 2016 at which time she noted the mild fluid retention. Prior to adjusting her diuretic regimen a metabolic panel was obtained, demonstrating worsening renal dysfunction and hyperkalemia (5.4 mmol/L). She was advised to avoid NSAID's, multivitamin, salt substitutes, OTC potassium, etc. A repeat metabolic panel three days later continued to show acute on chronic renal dysfunction and hyperkalemia. She was then advised to decrease Bumex from 1 mg/day to 1 mg one day alternating with 1/2 mg the next day. Shortly following reduction in Bumex dosing on 10/24/2016 she began to notice a nonproductive cough, chest congestion , and orthopnea without PND. She denies worsening fluid retention or abrupt weight gain. Another metabolic panel revealed persistent renal dysfunction with progressive hyperkalemia for which she was referred to the ER. Upon presentation to the ER Mrs. Zhang was evaluated by Dr. Menjivar. Laboratory work revealed progressive renal dysfunction though only mild hyperkalemia. Chest x-ray revealed mild congestive failure with small pleural effusion with bibasilar consolidation felt to represent atelectasis. Troponin mildly elevated. EKG revealed normal sinus rhythm at 87 bpm with left axis deviation, right bundle branch block, T wave abnormality suggesting lateral ischemia. Repeat EKG this morning reveals normal sinus rhythm at 82 bpm with left axis deviation, right bundle branch block, worsening T wave abnormality laterally. Mrs. Zhang was given 60 mg IV furosemide in the ER with resolution of the cough, chest congestion, and orthopnea. This morning she is feeling back to baseline. She denies chest pain or discomfort. Resting echocardiogram is pending. (Sandeep Self PA-C) History Past Medical/Surgical History: Type I diabetes mellitus with triopathy, gastroparesis Peripheral vascular disease History of diabetic foot ulcer with osteomyelitis Status post PTCA of the right popliteal artery Status post excision of the right 5th metatarsal and debridement of the lateral malleolus with culture positive for strep and coag neg staph Ischemic cardiomyopathy with past LVEF of 45%. October 22, 2012 catheterization revealing 2 vessel CAD of the LAD and Circ. Specific angiography was right dominant. The RCA was a medium caliber vessel with moderate disease including a 30% mid RCA lesion. The LM was mildly diseased. The LAD was severely diseased including a 50% proximal LAD lesion, 80 % mid LAD lesion, 90% distal LAD lesion, and a 50% D1 lesion. The LCX was nondominant and severely diseased with an 80% OM1 lesion, 99% OM2 lesion, and an 80% mid LCX lesion, LVEDP elevated Status post 01/05/2013 CABG with a SINHA to the proximal LAD, free KARO from the SINHA to the OM, and distal LAD endarterectomy with patch angioplasty. Chronic renal insufficiency Chronic tobacco abuse Hypertension Dyslipidemia. GERD. Gastritis Hypothyroidism Depression. Panic disorder. Bipolar. ADHA Chronic sinusitis Glaucoma Bilateral cataracts delivery Repair of nasal septum Sinus surgery Removal endometrial tag Right breast biopsy, benign Colonoscopy with polypectomy Family History: Notable for premature CAD in her father. Paternal grandfather with a CVA. Social History: Smoker, currently 1 ppd. No significant alcohol. No illegal drug use. . RN. (Sandeep Self PA-C) Review Of Systems General: Gradual weight gain. No fever. No rigors. No night sweats. Head: No head trauma. Cardiovascular: No pain or chest discomfort. Stable dyspnea on exertion. No tachypalpitations. No near syncope or syncope. Pulmonary: Ongoing tobacco abuse. No hemoptysis. Gastrointestinal: See above. Skin: No rash. Musculoskeletal: Arthritis. See above. Neurological: No history of TIA, CVA, or seizures. Psych: Depressed. Complete Review of Systems is as stated above, negative, or noncontributory (Sandeep Self PA-C) Allergies Coded Allergies: Penicillins (Verified Allergy, Intermediate, BLOTCHY SKIN/ ITCHY, 11/05/16) Vancomycin (Unverified Allergy, Intermediate, SHORTNESS OF BREATH, 11/05/16) Clopidogrel (Verified Allergy, Mild, rash, 11/05/16) rash due to Plavix or ertapenem Ertapenem (Verified Allergy, Mild, rash, 11/05/16) rash due to Plavix or ertapenem? Cephalosporins (Verified Allergy, Unknown, CECLOR-UNKNOWN, 11/05/16) Erythromycin (Unverified Allergy, Unknown, FROM H AND P-RASH, 11/05/16) Statins (Unverified Allergy, Unknown, MYALGIA, 11/05/16) Codeine (Verified Adverse Reaction, Unknown, VOMITING, 11/05/16) Nitrofurantoin (Unverified Adverse Reaction, Unknown, vomiting, 11/05/16) Pregabalin (Unverified Adverse Reaction, Unknown, VERY EMOTIONAL CRYING, ) Medications Reported Home Medications Medications Dose Route/Sig Max Daily Dose Days Date Category Dose Instructions Dhea 50 (Prasterone (Dhea)) 50 Mg Cap 50 Mg PO DAILY 11/05/16 Reported Cranberry Extract (Cranberry (Vaccinium Macrocarp) 250 Mg Tab 500 Mg PO QAM 11/05/16 Reported Prempro 0.3MG/1.5MG (Estrogens Conj/Medroxyprogest Acet) Tab 1 Tab PO QAM 11/05/16 Reported Liothyronine Sodium 5 Mcg Tab 10 Mcg PO QAM 11/05/16 Reported Wp Thyroid (Thyroid) 65 Mg Tab 65 Mg PO QAM 11/05/16 Reported Bumex (Bumetanide) 1 Mg Tab 0.5 Mg PO Q2D 11/05/16 Reported Tylenol (Acetaminophen) 500 Mg Tab 1,000 Mg PO QID 04/09/16 Reported Trintellix (Vortioxetine HBr) 20 Mg Tab 30 Mg PO QAM 04/09/16 Reported Aspirin Ec (Aspirin) 81 Mg Tab 162 Mg PO HS 11/07/15 Reported Biotin 5000 (Biotin) 5 Mg Cap 5 Mg PO QPM 11/07/15 Reported Claritin (Loratadine) 10 Mg Tab 10 Mg PO QAM 11/07/15 Reported Adderall 10MG (Amphetamine-Dextroamphetamine 10MG) 1 Tab Tab 10 Mg PO BID 09/09/15 Reported Pataday (Olopatadine Hydrochloride) 37 Drops/2.5 Ml Soln 1 Drops OPB DAILY 09/09/15 Reported Vitamin D (Cholecalciferol) 1,000 Inter.unit Tab 5,000 Inter.unit PO QPM 01/17/15 Reported Adderall Xr 30MG (Amphetamine-Dextroamphetamine 30MG) 1 Cap Cap 30 Mg PO BID 01/17/15 Reported Zantac (Ranitidine HCl) 150 Mg Tab 150 Mg PO BID 01/17/15 Reported Linzess (Linaclotide) 145 Mcg Cap 145 Mcg PO QAM 01/17/15 Reported Levemir (Insulin Detemir) 100 Unit/ Inj 14 Units SQ BID 03/02/13 Reported Lopressor (Metoprolol Tartrate) 25 Mg Tab 1.5 Tab PO BID 03/02/13 Reported Bumex (Bumetanide) 1 Mg Tab 1 Mg PO Q2D 01/23/13 Reported Zofran (Ondansetron HCl) 8 Mg Tab 8 Mg PO TID 01/16/13 Reported Reglan (Metoclopramide Hcl) 10 Mg Tab 10 Mg PO QID 01/16/13 Reported Travatan Oph Soln 0.004% * (Travoprost) 37 Drops/2.5 Ml Soln 1 Drop OPB HS 07/31/11 Reported Dulcolax * (Bisacodyl) 5 Mg Tabec 15 Mg OR HS 07/31/11 Reported Ativan * (Lorazepam) 1 Mg Tab 1 Mg PO HS 07/31/11 Reported Novolog (Insulin Aspart) Inj 1 Unit SC AC 07/29/11 Reported as directed per Sliding Scale, 1:15 FOR CARB COVERAGE MAX OF 15 UNITS PER DAY Protonix (Pantoprazole Sodium) 40 Mg Tab 40 Mg PO BID 07/29/11 Reported (Sandeep Self PA-C) Physical Exam Vital Signs (Last 8hrs): Last 8 Hrs Date Time Temp Pulse Resp B/P Pulse Ox O2 Delivery O2 Flow Rate FiO2 11/06/16 08:00 Room Air 11/06/16 07:46 36.9 87 18 161/78 95 Room Air 11/06/16 04:00 Room Air 11/06/16 03:54 36.8 81 18 146/76 95 Room Air General Appearance: Alert and Oriented x3. NAD. Head: Normocephalic Atraumatic. Eyes: PER, EOMI, conjunctiva and sclera clear Neck: Supple. Bilateral carotid bruits. No JVD. No HJD. Respiratory: Decreased at the bases but clear. No wheezes, rales, or rhonchi. Cardiovascular: RRR, 88 bpm. Soft systolic murmur at the lower left sternal border. No rub. Abdomen: +BS. Soft. Nontender. Extremities: Trivial edema. No clubbing. No cyanosis. Distal pulses 1/4 bilaterally, previously not appreciated. Neuro: No focal deficits. Psychiatric: Flat affect. (Sandeep Self PA-C) Data Last 24 Hours Test 11/05/16 20:05 11/05/16 20:41 11/05/16 23:30 11/06/16 00:35 White Blood Count 9.09 K/uL Red Blood Count 3.46 M/uL Hemoglobin 10.6 g/dL Hematocrit 31.7 % Mean Corpuscular Volume 91.6 fL Mean Corpuscular Hemoglobin 30.6 pg Mean Corpuscular Hemoglobin Concent 33.4 g/dl Platelet Count 275 K/uL Mean Platelet Volume 9.1 fL Neutrophils (%) (Auto) 63.0 % Lymphocytes (%) (Auto) 27.6 % Monocytes (%) (Auto) 4.8 % Eosinophils (%) (Auto) 3.9 % Basophils (%) (Auto) 0.6 % Neutrophils # (Auto) 5.73 K/uL Lymphocytes # (Auto) 2.51 K/uL Monocytes # (Auto) 0.44 K/uL Eosinophils # (Auto) 0.35 K/uL Basophils # (Auto) 0.05 K/uL RDW Standard Deviation 43.1 fL RDW Coefficient of Variation 12.8 % Immature Granulocyte % (Auto) 0.1 % Immature Granulocyte # (Auto) 0.01 K/uL Prothrombin Time 9.7 SECONDS Prothromb Time International Ratio 0.9 Activated Partial Thromboplast Time 24.1 SECONDS Partial Thromboplastin Ratio 0.9 Sodium Level 141 mmol/L 143 mmol/L Potassium Level 5.3 mmol/L 4.7 mmol/L Chloride Level 109 mmol/L 109 mmol/L Carbon Dioxide Level 21 mmol/L 24 mmol/L Anion Gap 11.0 mmol/L 10.0 mmol/L Blood Urea Nitrogen 38 mg/dl 35 mg/dl Creatinine 2.00 mg/dl 1.80 mg/dl Est Creatinine Clear Calc Drug Dose 36.5 ml/min 40.7 ml/min Estimated GFR () 32.4 36.9 Estimated GFR (Non- 28.0 31.8 BUN/Creatinine Ratio 19.0 19.7 Random Glucose 228 mg/dl 151 mg/dl Estimated Average Glucose 214 mg/dl Hemoglobin A1c 9.1 % Calcium Level 9.2 mg/dl 9.3 mg/dl Phosphorus Level 4.8 mg/dl Magnesium Level 2.1 mg/dl Total Bilirubin 0.2 mg/dl Direct Bilirubin < 0.1 mg/dl Aspartate Amino Transf (AST/SGOT) 20 U/L Alanine Aminotransferase (ALT/SGPT) 54 U/L Alkaline Phosphatase 108 U/L Total Creatine Kinase 342 U/L Creatine Kinase MB 10.3 ng/ml Creatine Kinase MB Ratio 3.0 Troponin I 0.054 ng/ml 0.051 ng/ml Pro-B-Type Natriuretic Peptide 62833 pg/ml Total Protein 6.8 gm/dl Albumin 3.9 gm/dl Lipase 107 U/L Urine Color YELLOW Urine Appearance CLEAR Urine pH 5.0 Urine Specific [place] 1.014 Urine Protein 3+ Urine Glucose (UA) 1+ Urine Ketones NEG Urine Occult Blood 2+ Urine Nitrite NEG Urine Bilirubin NEG Urine Urobilinogen NEG Urine Leukocyte Esterase NEG Urine WBC (Auto) 1-5 /hpf Urine RBC (Auto) 10-30 /hpf Urine Hyaline Casts (Auto) 1-5 /lpf Urine Epithelial Cells (Auto) 10-20 /lpf Urine Bacteria (Auto) NEG Bedside Glucose 188 mg/dl Test 11/06/16 05:10 11/06/16 07:24 White Blood Count 10.81 K/uL Red Blood Count 3.45 M/uL Hemoglobin 10.5 g/dL Hematocrit 32.1 % Mean Corpuscular Volume 93.0 fL Mean Corpuscular Hemoglobin 30.4 pg Mean Corpuscular Hemoglobin Concent 32.7 g/dl Platelet Count 271 K/uL Mean Platelet Volume 9.6 fL Neutrophils (%) (Auto) 57.2 % Lymphocytes (%) (Auto) 31.4 % Monocytes (%) (Auto) 6.8 % Eosinophils (%) (Auto) 3.7 % Basophils (%) (Auto) 0.6 % Neutrophils # (Auto) 6.19 K/uL Lymphocytes # (Auto) 3.39 K/uL Monocytes # (Auto) 0.74 K/uL Eosinophils # (Auto) 0.40 K/uL Basophils # (Auto) 0.06 K/uL RDW Standard Deviation 44.2 fL RDW Coefficient of Variation 12.8 % Immature Granulocyte % (Auto) 0.3 % Immature Granulocyte # (Auto) 0.03 K/uL Sodium Level 143 mmol/L Potassium Level 4.3 mmol/L Chloride Level 110 mmol/L Carbon Dioxide Level 21 mmol/L Anion Gap 12.0 mmol/L Blood Urea Nitrogen 34 mg/dl Creatinine 1.60 mg/dl Est Creatinine Clear Calc Drug Dose 45.3 ml/min Estimated GFR () 42.5 Estimated GFR (Non- 36.7 BUN/Creatinine Ratio 21.3 Random Glucose 92 mg/dl Calcium Level 9.2 mg/dl Troponin I 0.065 ng/ml Bedside Glucose 90 mg/dl EKG: See above. CXR: See above. Telemetry reviewed: Sinus at 78 bpm. Rare ectopy. No tachyarrhythmias, bradyarrhythmias, or pauses. Echo: Pending. (Sandeep Self PA-C) Assessment & Plan Complex 51 year old female referred to [facility] due to acute on chronic renal dysfunction and hyperkalemia, observed to have mild acute decompensated diastolic congestive heart failure signs and symptoms following slight reduction in diuretic therapy. Cardiac enzymes are mildly elevated with EKG demonstrating lateral ST segment depression in the setting of acute renal dysfunction, electrolyte issues, chronic right bundle branch block, left ventricular hypertrophy, uncontrolled hypertension. Patient asymptomatic in regards to angina with pharmacological stress testing noted to be nonischemic in December 2015. RECOMMENDATIONS/PLAN: Resume prior dosing of Bumex, 1 mg/day. Increase metoprolol to 50 mg twice a day for additional blood pressure and heart rate control I have avoided adding amlodipine due to fluid retention though may need to reconsider. Hydralazine has been avoided due to her coronary artery disease; prior use of Imdur resulted in excessive fatigue. Prior attempts at ACEI therapy x 3 were not well tolerated - hypotension, hyperkalemia, acute on chronic renal dysfunction. Retrial of statin therapy declined (failed x 5) Tobacco cessation advised (no desire to quit). She remains on Adderall against cardiac advise. Await resting echocardiogram interpretation. Further recommendations pending the above, evaluation by Dr. Dela Cruz, and her ongoing hospitalization. (Sandeep Self PA-C) Patient seen and examined , agree with assessment and plan. Hyperkalemia, renal insufficiency and edema improved Jack Dela Cruz MD (Jack Dela Cruz M.D.)
[2016-11-06 11:14] VITALS: Ht 170.2 cm; Wt 83.1 kg
[2016-11-06 11:42] VITALS: BP 148/76; PULSE 75; TEMP 36.9; O2SAT 95
--- NOTE | 2016-11-06 12:17 | Pharmacy Progress Note ---
Glycemic Control Intl Consult Date of Service Nov 06, 2016. Scope Glycemic Pharmacist consulted by Dr Wright on 11/05/16 for glycemic control and to write orders per [facility] inpatient glycemic control protocol Objective Weight (Kilograms): 81.900 Accuchecks BSG (last 24hrs): Test 11/05/16 20:05 11/05/16 23:30 11/06/16 00:35 11/06/16 05:10 Random Glucose 228 mg/dl (70-99) 151 mg/dl (70-99) 92 mg/dl (70-99) Bedside Glucose 188 mg/dl (70-90) Test 11/06/16 07:24 11/06/16 10:48 Bedside Glucose 90 mg/dl (70-90) 205 mg/dl (70-90) Laboratory Data (last 24hrs) Test 11/05/16 20:05 11/06/16 00:35 11/06/16 05:10 Anion Gap 11.0 mmol/L 10.0 mmol/L 12.0 mmol/L BUN/Creatinine Ratio 19.0 19.7 21.3 Blood Urea Nitrogen 38 mg/dl 35 mg/dl 34 mg/dl Creatinine 2.00 mg/dl 1.80 mg/dl 1.60 mg/dl Hemoglobin A1c 9.1 % Potassium Level 5.3 mmol/L 4.7 mmol/L 4.3 mmol/L Sodium Level 141 mmol/L 143 mmol/L 143 mmol/L White Blood Count 9.09 K/uL 10.81 K/uL Red Blood Count 3.46 M/uL 3.45 M/uL Hemoglobin 10.6 g/dL 10.5 g/dL Hematocrit 31.7 % 32.1 % Mean Corpuscular Volume 91.6 fL 93.0 fL Mean Corpuscular Hemoglobin 30.6 pg 30.4 pg Mean Corpuscular Hemoglobin Concent 33.4 g/dl 32.7 g/dl Platelet Count 275 K/uL 271 K/uL Mean Platelet Volume 9.1 fL 9.6 fL Neutrophils (%) (Auto) 63.0 % 57.2 % Lymphocytes (%) (Auto) 27.6 % 31.4 % Monocytes (%) (Auto) 4.8 % 6.8 % Eosinophils (%) (Auto) 3.9 % 3.7 % Basophils (%) (Auto) 0.6 % 0.6 % Neutrophils # (Auto) 5.73 K/uL 6.19 K/uL Lymphocytes # (Auto) 2.51 K/uL 3.39 K/uL Monocytes # (Auto) 0.44 K/uL 0.74 K/uL Eosinophils # (Auto) 0.35 K/uL 0.40 K/uL Basophils # (Auto) 0.05 K/uL 0.06 K/uL HbA1c Test 11/05/16 20:05 Hemoglobin A1c 9.1 % (4.5-5.6) H Recent Pertinent Medications Outpatient Anti-diabetic Regimen: * Levemir 14 units SQ BID * Novolog - CR 1 unit for 15g CHO consumed; CF 70mg/dL/unit for BSG > 150mg/dL * A1c = 9.2 % 11/05/16 The patient is currently receiving: * Basal insulin: Levemir 14 units every 12 hours * Correctional Insulin: Novolog Correction per scale ACHS Goal Range: Low 140 mg/dL - High 180 mg/dL Correction Factor: 25 mg/dL/unit * Prandial insulin: Per carb ratio of 1 unit per 15 grams CHO consumed Risk Factors for Insulin Resistance: * Diet: Type 2 DM/ Low K Assessment & Plan ASSESSMENT: * 51 yo TYPE 1 diabetic female, since 13 years of age, uncontrolled on SQ insulin at home, A1c = 9.2%. Pt seen by cheese weigher today to discuss self- managment of diabetes. * Admitted for CHF, seen by cardiology today. * So far patient's BSGs have been pretty well controlled as inpatient, I will just lower goal range slightly for patient's age. * ADA & AACE recommend a goal blood sugar range 140-180 mg/dl for the majority of critically ill & non-critically ill patients. However, more stringent targets may be selected in individual cases. PLAN FOR INPATIENT GLYCEMIC CONTROL: * Basal insulin with LEVEMIR 14 units SQ BID * Correctional Insulin with NOVOLOG per scale ACHS or Q6hrs while NPO * CHANGE: Goal Range: Low 120 mg/dL - High 160 mg/dL * Correction Factor: 25 mg/dL/unit * Nutritional / Prandial insulin per carb ratio of 1 unit per 15 grams CHO consumed * Please note that the plan above was derived based on current level of insulin resistance and hospital stress. These recommendations are appropriate for inpatient admission only. Plan of care upon discharge will need to be reassessed to avoid potential outpatient hypo/hyperglycemia. Thank you.
--- NOTE | 2016-11-06 14:09 | Progress Note ---
Subjective Date of Service: Nov 06, 2016. Subjective Pt evaluation today including: conversation w/ patient, physical exam, lab review, review of studies, conversation w/ natural remedy consultant, review of inpatient medication list Saw/examined the patient in room 215 She states that she had been feeling short of breath for a few weeks Bumex dose adjusted as outpatient presented to the ER - sent over for worsening kidney function and hyperkalemia received Lasix in the ER - feels better in terms of breathing lower extremity edema much improved Denies chest pain or other symptoms Problem List Medical Problems: (1) Elevated d-dimer Status: Acute (2) History of CHF (congestive heart failure) Status: Acute (3) History of coronary artery disease Status: Acute (4) SOB (shortness of breath) Status: Acute Review of Systems Constitutional: No chills, No fever Respiratory: + shortness of breath, No cough Cardiac: + edema (improving), No chest pain, No orthopnea Abdomen: No diarrhea, No nausea, No pain, No vomiting Female : No dysuria, No urinary frequency Medications Current Inpatient Medications Medications (Trade) Dose Ordered Sig/Kike Route Start Time Stop Time Status Last Admin Dose Admin Heparin Sodium (Porcine) (Heparin Sq 5000 Unit/0.5ml) 5,000 unit Q8 SQ 11/06/16 06:00 12/06/16 05:59 11/06/16 06:45 5,000 UNIT Acetaminophen (Tylenol Tab) 650 mg Q4H PRN PO 11/05/16 23:00 12/05/16 22:59 Nitroglycerin (Nitrostat Tab) 0.4 mg UD PRN SL 11/05/16 23:00 12/05/16 22:59 Insulin Aspart (novoLOG ASPART) SLIDING SCALE If C... ACHS SC 11/06/16 07:00 12/06/16 06:59 Glucose (Glucose 40% Gel) 15-30 GRAMS 15 GRAMS... UD PRN PO 11/05/16 23:00 12/05/16 22:59 Glucose (Glucose Chew Tab) 4-8 Tablets 4 Tabl... UD PRN PO 11/05/16 23:00 12/05/16 22:59 Dextrose (Dextrose 50% 50ML Syringe) 25-50ML OF 50% DW IV FOR... UD PRN IV 11/05/16 23:00 12/05/16 22:59 Glucagon (Glucagon Inj) 1 mg UD PRN SQ 11/05/16 23:00 12/05/16 22:59 Aspirin (Ecotrin Tab) 162 mg HS PO 11/06/16 21:00 12/06/16 20:59 Bisacodyl (Dulcolax Tab) 15 mg HS PO 11/06/16 21:00 12/06/16 20:59 Liothyronine Sodium (Cytomel Tab) 10 mcg QAM PO 11/06/16 09:00 12/06/16 08:59 11/06/16 07:37 10 MCG Loratadine (Claritin Tab) 10 mg QAM PO 11/06/16 09:00 12/06/16 08:59 11/06/16 07:38 10 MG Lorazepam (Ativan Tab) 1 mg HS PRN PO 11/05/16 23:00 12/05/16 22:59 Metoclopramide HCl (Reglan Tab) 10 mg ACHS PO 11/06/16 07:00 12/06/16 06:59 11/06/16 07:37 10 MG Metoprolol Tartrate (Lopressor Tab) 37.5 mg BID PO 11/06/16 09:00 11/06/16 07:38 37.5 MG Ondansetron HCl (Zofran Tab) 8 mg TID PO 11/06/16 09:00 12/06/16 08:59 11/06/16 07:38 8 MG Pantoprazole Sodium (Protonix Tab) 40 mg BID PO 11/06/16 09:00 12/06/16 08:59 11/06/16 07:38 40 MG Ranitidine HCl (zANTac TAB) 150 mg BID PO 11/06/16 09:00 12/06/16 08:59 11/06/16 07:38 150 MG Amphetamine Aspartate/ Amphetam Sulf (Amphetamine Aspartate/Amph Sulf/Dextramphet) 10 mg BID@0730,1200 PO 11/06/16 07:30 11/20/16 07:29 11/06/16 07:38 10 MG Miscellaneous Information (Order Awaiting Action) 1 ea QS N/A 11/06/16 01:00 12/06/16 00:59 Miscellaneous Information (Order Awaiting Action) 1 ea QS N/A 11/06/16 01:00 12/06/16 00:59 Thyroid (Obion Thyroid Tab) 60 mg DAILY PO 11/06/16 09:00 12/06/16 08:59 Travoprost (Travatan Z) 1 drops HS OPB 11/06/16 21:00 12/06/16 20:59 Miscellaneous Information (Order Awaiting Action) 1 ea QS N/A 11/06/16 01:00 12/06/16 00:59 Hydromorphone HCl (Dilaudid Inj) 0.5 mg Q3H PRN IV 11/05/16 23:00 11/19/16 22:59 Tramadol HCl (Ultram Tab) 25 mg Q6H PRN PO 11/05/16 23:00 12/05/16 22:59 Nicotine 1 patch 1 patch QAM TD 11/06/16 09:00 12/06/16 08:59 Promethazine HCl/ Sodium Chloride (Phenergan Inj/ Nss 50ml) 50.5 ml @ 204 mls/hr Q6H PRN IV 11/05/16 23:00 12/05/16 22:59 Miscellaneous (Remove Nicoderm Patch) 1 ea HS N/A 11/06/16 21:00 12/06/16 20:59 Miscellaneous Information (Consult Glycemic Management Pharmacy) 1 ea UD PRN N/A 11/05/16 23:45 12/05/16 23:44 Insulin Detemir (Levemir Flexpen/ FlexTouch) 14 unit BID SC 11/06/16 09:00 12/06/16 08:59 11/06/16 08:27 14 UNIT Ipratropium [place] (Atrovent 0.02% 0.5MG/2.5ML Neb) 0.5 mg Q4H PRN INH 11/05/16 23:45 12/05/16 23:44 Levalbuterol (Xopenex 1.25MG/ 0.5ML Neb) 1.25 mg Q4H PRN INH 11/05/16 23:45 12/05/16 23:44 Objective Vital Signs Date Time Temp Pulse Resp B/P Pulse Ox O2 Delivery O2 Flow Rate FiO2 11/06/16 08:00 Room Air 11/06/16 07:46 36.9 87 18 161/78 95 Room Air 11/06/16 04:00 Room Air 11/06/16 03:54 36.8 81 18 146/76 95 Room Air 11/06/16 00:00 Room Air 11/05/16 23:52 92 16 95 Room Air 11/05/16 23:22 36.9 92 18 184/76 98 Room Air 11/05/16 22:53 88 20 180/78 95 11/05/16 20:55 85 11/05/16 20:54 85 20 169/88 97 Room Air 11/05/16 19:33 37.1 94 18 166/76 99 Room Air Physical Exam General Appearance: no apparent distress Respiratory/Chest: chest non-tender, lungs clear, normal breath sounds, no respiratory distress, no accessory muscle use Cardiovascular: regular rate, rhythm, no edema, no JVD, no murmur Abdomen: normal bowel sounds, non tender, soft Extremities: non-tender, normal inspection, + pedal edema (trace lower extremity edema) Neurologic/Psychiatric: no motor/sensory deficits, alert, normal mood/affect Skin: normal color Lymphatic: no adenopathy Laboratory Results Last 24 Hours Test 11/05/16 20:05 11/05/16 20:41 11/05/16 23:30 11/06/16 00:35 White Blood Count 9.09 K/uL Red Blood Count 3.46 M/uL Hemoglobin 10.6 g/dL Hematocrit 31.7 % Mean Corpuscular Volume 91.6 fL Mean Corpuscular Hemoglobin 30.6 pg Mean Corpuscular Hemoglobin Concent 33.4 g/dl Platelet Count 275 K/uL Mean Platelet Volume 9.1 fL Neutrophils (%) (Auto) 63.0 % Lymphocytes (%) (Auto) 27.6 % Monocytes (%) (Auto) 4.8 % Eosinophils (%) (Auto) 3.9 % Basophils (%) (Auto) 0.6 % Neutrophils # (Auto) 5.73 K/uL Lymphocytes # (Auto) 2.51 K/uL Monocytes # (Auto) 0.44 K/uL Eosinophils # (Auto) 0.35 K/uL Basophils # (Auto) 0.05 K/uL RDW Standard Deviation 43.1 fL RDW Coefficient of Variation 12.8 % Immature Granulocyte % (Auto) 0.1 % Immature Granulocyte # (Auto) 0.01 K/uL Prothrombin Time 9.7 SECONDS Prothromb Time International Ratio 0.9 Activated Partial Thromboplast Time 24.1 SECONDS Partial Thromboplastin Ratio 0.9 Sodium Level 141 mmol/L 143 mmol/L Potassium Level 5.3 mmol/L 4.7 mmol/L Chloride Level 109 mmol/L 109 mmol/L Carbon Dioxide Level 21 mmol/L 24 mmol/L Anion Gap 11.0 mmol/L 10.0 mmol/L Blood Urea Nitrogen 38 mg/dl 35 mg/dl Creatinine 2.00 mg/dl 1.80 mg/dl Est Creatinine Clear Calc Drug Dose 36.5 ml/min 40.7 ml/min Estimated GFR () 32.4 36.9 Estimated GFR (Non- 28.0 31.8 BUN/Creatinine Ratio 19.0 19.7 Random Glucose 228 mg/dl 151 mg/dl Estimated Average Glucose 214 mg/dl Hemoglobin A1c 9.1 % Calcium Level 9.2 mg/dl 9.3 mg/dl Phosphorus Level 4.8 mg/dl Magnesium Level 2.1 mg/dl Total Bilirubin 0.2 mg/dl Direct Bilirubin < 0.1 mg/dl Aspartate Amino Transf (AST/SGOT) 20 U/L Alanine Aminotransferase (ALT/SGPT) 54 U/L Alkaline Phosphatase 108 U/L Total Creatine Kinase 342 U/L Creatine Kinase MB 10.3 ng/ml Creatine Kinase MB Ratio 3.0 Troponin I 0.054 ng/ml 0.051 ng/ml Pro-B-Type Natriuretic Peptide 46245 pg/ml Total Protein 6.8 gm/dl Albumin 3.9 gm/dl Lipase 107 U/L Urine Color YELLOW Urine Appearance CLEAR Urine pH 5.0 Urine Specific [place] 1.014 Urine Protein 3+ Urine Glucose (UA) 1+ Urine Ketones NEG Urine Occult Blood 2+ Urine Nitrite NEG Urine Bilirubin NEG Urine Urobilinogen NEG Urine Leukocyte Esterase NEG Urine WBC (Auto) 1-5 /hpf Urine RBC (Auto) 10-30 /hpf Urine Hyaline Casts (Auto) 1-5 /lpf Urine Epithelial Cells (Auto) 10-20 /lpf Urine Bacteria (Auto) NEG Bedside Glucose 188 mg/dl Test 11/06/16 05:10 11/06/16 07:24 White Blood Count 10.81 K/uL Red Blood Count 3.45 M/uL Hemoglobin 10.5 g/dL Hematocrit 32.1 % Mean Corpuscular Volume 93.0 fL Mean Corpuscular Hemoglobin 30.4 pg Mean Corpuscular Hemoglobin Concent 32.7 g/dl Platelet Count 271 K/uL Mean Platelet Volume 9.6 fL Neutrophils (%) (Auto) 57.2 % Lymphocytes (%) (Auto) 31.4 % Monocytes (%) (Auto) 6.8 % Eosinophils (%) (Auto) 3.7 % Basophils (%) (Auto) 0.6 % Neutrophils # (Auto) 6.19 K/uL Lymphocytes # (Auto) 3.39 K/uL Monocytes # (Auto) 0.74 K/uL Eosinophils # (Auto) 0.40 K/uL Basophils # (Auto) 0.06 K/uL RDW Standard Deviation 44.2 fL RDW Coefficient of Variation 12.8 % Immature Granulocyte % (Auto) 0.3 % Immature Granulocyte # (Auto) 0.03 K/uL Sodium Level 143 mmol/L Potassium Level 4.3 mmol/L Chloride Level 110 mmol/L Carbon Dioxide Level 21 mmol/L Anion Gap 12.0 mmol/L Blood Urea Nitrogen 34 mg/dl Creatinine 1.60 mg/dl Est Creatinine Clear Calc Drug Dose 45.3 ml/min Estimated GFR () 42.5 Estimated GFR (Non- 36.7 BUN/Creatinine Ratio 21.3 Random Glucose 92 mg/dl Calcium Level 9.2 mg/dl Troponin I 0.065 ng/ml Bedside Glucose 90 mg/dl Assessment and Plan This is a 51 year old female with PMH of CAD s/p CABG, type 1 DM, CKD stage 3, hx. of ischemic cardiomyopathy, tobacco use disorder, ADHD, depression/anxiety, HTN, hypothyroidism presents with worsening creatinine and hyperkalemia Mild Decompensated Heart Failure with Preserved Ejection Fraction echo performed, EF ~ 55% BNP on admission > 17,000 CXR with mild congestive changes patient received one dose of Lasix in the ER now on Bumex 1mg daily creat improved from 2.0 to 1.6 lower extremity edema improved appreciate cardiology and nephrology input Acute Kidney Injury superimposed on CKD stage 3, improving creat at baseline is around 1.5 creat on admission up to 2.0 was given IV lasix in the ER; creat has been improving down to 1.6 seems to be around her baseline Hyperkalemia, resolved potassium on admission = 5.3 given IV Lasix; K now wnl CAD s/p CABG last stress in December 2015 = negative appreciate cardio input mild elevation of troponin, likely multifactorial - hyperkalemia, uncontrolled BP metoprolol increased as per cardio continue aspirin, metoprolol - failed statin, MEENA-I trials Uncontrolled BP blood pressure elevated continue Bumex and metoprolol has been increased, monitor blood pressure Type 1 DM Ha1c = 9.1 uncontrolled, likely secondary to noncompliance Levemir and insulin sliding scale for now Hypothyroidism continue Cytomel and [place] thyroid Depression/Anxiety continue home medications Menopausal Symptoms patient had been started on hormonal therapy as outpatient may require tapering or weaning off of hormone therapy as edema is worsening with this DVT ppx subq heparin FULL CODE
[2016-11-06 15:04] VITALS: BP 149/72; PULSE 79; TEMP 36.8; O2SAT 95
[2016-11-06 19:49] VITALS: BP 162/72; PULSE 88; TEMP 36.7; O2SAT 96
[2016-11-06] MEDS: METOPROLOL TARTRATE 50 MG TAB PO SCH (20:15)
[2016-11-06] MEDS ORDERED: TRAVOPROST Z 0.004% OPH SOLN 2.5 ML BTL OPB SCH (21:00)
[2016-11-06] MEDS ORDERED: ASPIRIN 81 MG ECTAB PO SCH (21:00)
[2016-11-06] MEDS ORDERED: BISACODYL 5 MG TABEC PO SCH (21:00)
[2016-11-06 23:31] VITALS: BP 151/78; PULSE 77; TEMP 37.2; O2SAT 96
[2016-11-07 04:03] VITALS: BP 147/85; PULSE 88; TEMP 36.7; O2SAT 95
[2016-11-07] MEDS: HEPARIN SOD 5000 UNIT/0.5 ML CARP SQ SCH (06:00)
[2016-11-07 06:31] LABS: BASO % 0.5 %; BASO ABS # 0.04 K/uL (0-0.2); COMPLETE YES; EOS % 3.7 %; HEMATOCRIT 29.8 % (37-47); IG% 0.2 %; LYMPH % 21.6 %; LYMPH ABS # 1.75 K/uL (1.2-3.4); MEAN CELL VOLUME 92.5 fL (80-100); MEAN CORPUSCULAR HEMOGLOBIN 30.7 pg (25-34); MEAN CORPUSCULAR HGB CONC 33.2 g/dl (32-36); MEAN PLATELET VOLUME 8.5 fL (7.4-10.4); MONO % 7.9 %; NEUT % 66.1 %; PLATELET COUNT 219 K/uL (130-400); RED BLOOD COUNT 3.22 M/uL (4.2-5.4); WHITE BLOOD COUNT 8.11 K/uL (4.8-10.8)
[2016-11-07 06:59] LABS: BUN/CREATININE RATIO 21.7 (10-20); CALCIUM 8.6 mg/dl (8.5-10.1); CREATININE 1.6 mg/dl (0.60-1.20); MAGNESIUM 2.1 mg/dl (1.8-2.4); POTASSIUM 4.6 mmol/L (3.5-5.1)
[2016-11-07] MEDS: INSULIN ASPART 100 UNITS/ML 3 ML PEN SC SCH ×2 (07:00→11:39)
[2016-11-07] MEDS: LIOTHYRONINE SODIUM 5 MCG TAB PO SCH (07:35)
[2016-11-07] MEDS: ONDANSETRON 8 MG TAB PO SCH (07:35)
[2016-11-07] MEDS: LORATADINE 10 MG TAB PO SCH (07:35)
[2016-11-07] MEDS: METOCLOPRAMIDE HCL 10 MG TAB PO SCH ×2 (07:35→11:36)
[2016-11-07] MEDS: ARMOUR THYROID 30 MG TAB PO SCH ×2 (07:35→07:39)
[2016-11-07] MEDS: PANTOprazole SOD 40 MG TAB PO SCH (07:35)
[2016-11-07] MEDS: RANITIDINE HCL 150 MG TAB PO SCH (07:35)
[2016-11-07] MEDS: METOPROLOL TARTRATE 50 MG TAB PO SCH (07:35)
[2016-11-07 07:36] VITALS: BP 153/77; PULSE 82; TEMP 36.8; O2SAT 92
[2016-11-07] MEDS: NICOTINE 21 MG/24 HR TDSY TD SCH (07:36)
[2016-11-07] MEDS: AMPHETAMINE ASP/SULF/DEXTRAMPH 10 MG TAB PO SCH ×2 (07:47→11:36)
[2016-11-07] MEDS: INSULIN DETEMIR FLEXPEN/FLEX TOUCH 100 UNITS/ML 3ML SC SCH (07:50)
[2016-11-07] MEDS ORDERED: THYROID PO SCH ×2 (09:00)
[2016-11-07] MEDS ORDERED: AMPHETAMINE-DEXTROAMPHETAMINE 30 MG CAP PO SCH ×2 (09:00→12:00)
[2016-11-07] MEDS ORDERED: VORTIOXETINE HBR 20 MG PO SCH (09:00)
[2016-11-07] MEDS ORDERED: TRINTELLIX 10 MG PO SCH (09:00)
[2016-11-07] MEDS ORDERED: BUMETANIDE 1 MG TAB PO SCH (09:00)
[2016-11-07] MEDS: PATADAY~ORDER AWAITING ACTION SCH (09:21)
--- NOTE | 2016-11-07 09:47 | Progress Note ---
Subjective Date of Service: Nov 07, 2016. Subjective Pt evaluation today including: conversation w/ patient, physical exam, lab review, review of studies, conversation w/ travel sales consultant, review of inpatient medication list Saw/examined the patient in room 215 Doing well today; she is eager to go home slight upper respiratory type symptoms - no productive cough No swelling in the legs Problem List Medical Problems: (1) Elevated d-dimer Status: Acute (2) History of CHF (congestive heart failure) Status: Acute (3) History of coronary artery disease Status: Acute (4) SOB (shortness of breath) Status: Acute Review of Systems Constitutional: No chills, No fever, No weakness ENT: + nasal symptoms Respiratory: No cough, No dyspnea at rest, No dyspnea on exertion, No hemoptysis, No shortness of breath, No sputum, No wheezing Cardiac: No chest pain, No edema, No palpitations Abdomen: No diarrhea, No nausea, No pain, No vomiting Medications Current Inpatient Medications Medications (Trade) Dose Ordered Sig/Kike Route Start Time Stop Time Status Last Admin Dose Admin Heparin Sodium (Porcine) (Heparin Sq 5000 Unit/0.5ml) 5,000 unit Q8 SQ 11/06/16 06:00 12/06/16 05:59 11/07/16 06:00 5,000 UNIT Acetaminophen (Tylenol Tab) 650 mg Q4H PRN PO 11/05/16 23:00 12/05/16 22:59 Nitroglycerin (Nitrostat Tab) 0.4 mg UD PRN SL 11/05/16 23:00 12/05/16 22:59 Insulin Aspart (novoLOG ASPART) SLIDING SCALE If C... ACHS SC 11/06/16 07:00 12/06/16 06:59 11/07/16 07:00 4 UNITS Glucose (Glucose 40% Gel) 15-30 GRAMS 15 GRAMS... UD PRN PO 11/05/16 23:00 12/05/16 22:59 Glucose (Glucose Chew Tab) 4-8 Tablets 4 Tabl... UD PRN PO 11/05/16 23:00 12/05/16 22:59 Dextrose (Dextrose 50% 50ML Syringe) 25-50ML OF 50% DW IV FOR... UD PRN IV 11/05/16 23:00 12/05/16 22:59 Glucagon (Glucagon Inj) 1 mg UD PRN SQ 11/05/16 23:00 12/05/16 22:59 Aspirin (Ecotrin Tab) 162 mg HS PO 11/06/16 21:00 12/06/16 20:59 11/06/16 20:15 162 MG Bisacodyl (Dulcolax Tab) 15 mg HS PO 11/06/16 21:00 12/06/16 20:59 11/06/16 20:28 15 MG Liothyronine Sodium (Cytomel Tab) 10 mcg QAM PO 11/06/16 09:00 12/06/16 08:59 11/07/16 07:35 10 MCG Loratadine (Claritin Tab) 10 mg QAM PO 11/06/16 09:00 12/06/16 08:59 11/07/16 07:35 10 MG Lorazepam (Ativan Tab) 1 mg HS PRN PO 11/05/16 23:00 12/05/16 22:59 11/06/16 20:28 1 MG Metoclopramide HCl (Reglan Tab) 10 mg ACHS PO 11/06/16 07:00 12/06/16 06:59 11/07/16 07:35 10 MG Ondansetron HCl (Zofran Tab) 8 mg TID PO 11/06/16 09:00 12/06/16 08:59 11/07/16 07:35 8 MG Pantoprazole Sodium (Protonix Tab) 40 mg BID PO 11/06/16 09:00 12/06/16 08:59 11/07/16 07:35 40 MG Ranitidine HCl (zANTac TAB) 150 mg BID PO 11/06/16 09:00 12/06/16 08:59 11/07/16 07:35 150 MG Amphetamine Aspartate/ Amphetam Sulf (Amphetamine Aspartate/Amph Sulf/Dextramphet) 10 mg BID@0730,1200 PO 11/06/16 07:30 11/20/16 07:29 11/07/16 07:47 10 MG Miscellaneous Information (Order Awaiting Action) 1 ea QS N/A 11/06/16 01:00 12/06/16 00:59 Travoprost (Travatan Z) 1 drops HS OPB 11/06/16 21:00 4/6/17 20:59 11/06/16 20:16 1 DROPS Hydromorphone HCl (Dilaudid Inj) 0.5 mg Q3H PRN IV 11/05/16 23:00 11/19/16 22:59 Tramadol HCl (Ultram Tab) 25 mg Q6H PRN PO 11/05/16 23:00 12/05/16 22:59 Nicotine 1 patch 1 patch QAM TD 11/06/16 09:00 12/06/16 08:59 Promethazine HCl/ Sodium Chloride (Phenergan Inj/ Nss 50ml) 50.5 ml @ 204 mls/hr Q6H PRN IV 11/05/16 23:00 12/05/16 22:59 Miscellaneous (Remove Nicoderm Patch) 1 ea HS N/A 11/06/16 21:00 12/06/16 20:59 11/06/16 20:15 1 EA Miscellaneous Information (Consult Glycemic Management Pharmacy) 1 ea UD PRN N/A 11/05/16 23:45 12/05/16 23:44 Insulin Detemir (Levemir Flexpen/ FlexTouch) 14 unit BID SC 11/06/16 09:00 12/06/16 08:59 11/07/16 07:50 14 UNIT Ipratropium [place] (Atrovent 0.02% 0.5MG/2.5ML Neb) 0.5 mg Q4H PRN INH 11/05/16 23:45 12/05/16 23:44 Levalbuterol (Xopenex 1.25MG/ 0.5ML Neb) 1.25 mg Q4H PRN INH 11/05/16 23:45 12/05/16 23:44 Metoprolol Tartrate (Lopressor Tab) 50 mg BID PO 11/06/16 21:00 12/06/16 20:59 11/07/16 07:35 50 MG Bumetanide (Bumex Tab) 1 mg QAM PO 11/07/16 09:00 12/07/16 08:59 11/07/16 07:34 1 MG Vortioxetine (Trintellix) 20 mg DAILY PO 11/07/16 09:00 12/07/16 08:59 11/07/16 09:18 20 MG Non-Formulary Medication (Non-Formulary Patient'S Own Med) 1 ea DAILY PO 11/07/16 09:00 12/07/16 08:59 11/07/16 09:20 1 EA Non-Formulary Medication (Non-Formulary Patient'S Own Med) 1 ea DAILY PO 11/07/16 09:00 12/07/16 08:59 11/07/16 09:20 1 EA Objective Vital Signs Date Time Temp Pulse Resp B/P Pulse Ox O2 Delivery O2 Flow Rate FiO2 11/07/16 08:00 Room Air 11/07/16 07:36 36.8 82 16 153/77 92 Room Air 11/07/16 04:03 36.7 88 17 147/85 95 Room Air 11/07/16 04:00 Room Air 11/07/16 00:00 Room Air 11/06/16 23:31 37.2 77 17 151/78 96 Room Air 11/06/16 20:00 Room Air 11/06/16 19:49 36.7 88 22 162/72 96 11/06/16 16:00 Room Air 11/06/16 15:04 36.8 79 20 149/72 95 Room Air 11/06/16 12:00 Room Air 11/06/16 11:42 36.9 75 16 148/76 95 Room Air Physical Exam General Appearance: no apparent distress Respiratory/Chest: chest non-tender, no respiratory distress, no accessory muscle use, + decreased breath sounds Cardiovascular: regular rate, rhythm, no edema, no murmur Abdomen: normal bowel sounds, non tender, soft Extremities: normal inspection, no pedal edema Neurologic/Psychiatric: no motor/sensory deficits, alert, normal mood/affect Skin: normal color Lymphatic: no adenopathy Laboratory Results Last 24 Hours Test 11/06/16 10:48 11/06/16 16:15 11/06/16 20:17 11/07/16 06:15 Bedside Glucose 205 mg/dl 318 mg/dl 267 mg/dl White Blood Count 8.11 K/uL Red Blood Count 3.22 M/uL Hemoglobin 9.9 g/dL Hematocrit 29.8 % Mean Corpuscular Volume 92.5 fL Mean Corpuscular Hemoglobin 30.7 pg Mean Corpuscular Hemoglobin Concent 33.2 g/dl Platelet Count 219 K/uL Mean Platelet Volume 8.5 fL Neutrophils (%) (Auto) 66.1 % Lymphocytes (%) (Auto) 21.6 % Monocytes (%) (Auto) 7.9 % Eosinophils (%) (Auto) 3.7 % Basophils (%) (Auto) 0.5 % Neutrophils # (Auto) 5.36 K/uL Lymphocytes # (Auto) 1.75 K/uL Monocytes # (Auto) 0.64 K/uL Eosinophils # (Auto) 0.30 K/uL Basophils # (Auto) 0.04 K/uL RDW Standard Deviation 42.9 fL RDW Coefficient of Variation 12.6 % Immature Granulocyte % (Auto) 0.2 % Immature Granulocyte # (Auto) 0.02 K/uL Sodium Level 140 mmol/L Potassium Level 4.6 mmol/L Chloride Level 110 mmol/L Carbon Dioxide Level 20 mmol/L Anion Gap 10.0 mmol/L Blood Urea Nitrogen 35 mg/dl Creatinine 1.60 mg/dl Est Creatinine Clear Calc Drug Dose 45.6 ml/min Estimated GFR () 42.5 Estimated GFR (Non- 36.7 BUN/Creatinine Ratio 21.7 Random Glucose 250 mg/dl Calcium Level 8.6 mg/dl Magnesium Level 2.1 mg/dl Test 11/07/16 06:35 Bedside Glucose 242 mg/dl Assessment and Plan This is a 51 year old female with PMH of CAD s/p CABG, type 1 DM, CKD stage 3, hx. of ischemic cardiomyopathy, tobacco use disorder, ADHD, depression/anxiety, HTN, hypothyroidism presents with worsening creatinine and hyperkalemia Mild Decompensated Heart Failure with Preserved Ejection Fraction 11/07 patient is doing well today no edema in the lower extremities will obtain PA-lateral CXR to r/o fluid and/or PNA continue Bumex 1mg daily continue b-kathy failed MEENA-I trial as outpatient 11/06 echo performed, EF ~ 55% BNP on admission > 17,000 CXR with mild congestive changes patient received one dose of Lasix in the ER now on Bumex 1mg daily creat improved from 2.0 to 1.6 lower extremity edema improved appreciate cardiology and nephrology input Acute Kidney Injury superimposed on CKD stage 3, improving creat at baseline is around 1.5 creat on admission up to 2.0 was given IV lasix in the ER; creat has been improving down to 1.6 seems to be around her baseline Hyperkalemia, resolved potassium on admission = 5.3 given IV Lasix; K now wnl CAD s/p CABG last stress in December 2015 = negative appreciate cardio input mild elevation of troponin, likely multifactorial - hyperkalemia, uncontrolled BP metoprolol increased as per cardio continue aspirin, metoprolol - failed statin, MEENA-I trials Uncontrolled BP blood pressure elevated continue Bumex and metoprolol has been increased, monitor blood pressure Type 1 DM Ha1c = 9.1 uncontrolled, likely secondary to noncompliance Levemir and insulin sliding scale for now Hypothyroidism continue Cytomel and [place] thyroid Depression/Anxiety continue home medications Menopausal Symptoms patient had been started on hormonal therapy as outpatient may require tapering or weaning off of hormone therapy as edema is worsening with this DVT ppx subq heparin FULL CODE
--- NOTE | 2016-11-07 10:20 | Cardiology Follow-Up ---
Subjective General Date of Service: Nov 07, 2016. Chief Complaint: Cough Pt evaluation today including: conversation w/ patient, physical exam, chart review, lab review, review of studies, review of inpatient medication list History of Present Illness Patient seen and examined. She feels as though she is developing a URI. sick at home last week. Notes nasal congestion, nonproductive cough, mild chest congestion, mild pleuritic chest pain with deep inspiration. No fevers. No chills. No angina. No palpitations. No orthopnea or PND. Peripheral edema has resolved, returned to baseline. Telemetry: Sinus in the 80's. No atrial arrhythmias. No bradyarrhythmias or pauses. november 06, 2016 TTE Interpretation Summary ([facility], [place], Dr. Dela Cruz): The left ventricle is normal in size. There is mild concentric left ventricular hypertrophy. There is mild to moderate apical wall hypokinesis involving the apical septum and inferior wall. Left ventricular systolic function is normal. Ejection Fraction = 55-60%. There is no pericardial effusion. Normal inferior vena cava diameter and respiratory variation suggests normal central venous pressure. Doppler findings do not suggest pulmonary hypertension. Allergies Coded Allergies: Penicillins (Verified Allergy, Intermediate, BLOTCHY SKIN/ ITCHY, 11/05/16) Vancomycin (Unverified Allergy, Intermediate, SHORTNESS OF BREATH, 11/05/16) Clopidogrel (Verified Allergy, Mild, rash, 11/05/16) rash due to Plavix or ertapenem Ertapenem (Verified Allergy, Mild, rash, 11/05/16) rash due to Plavix or ertapenem? Cephalosporins (Verified Allergy, Unknown, CECLOR-UNKNOWN, 11/05/16) Erythromycin (Unverified Allergy, Unknown, FROM H AND P-RASH, 11/05/16) Statins (Unverified Allergy, Unknown, MYALGIA, 11/05/16) Codeine (Verified Adverse Reaction, Unknown, VOMITING, 11/05/16) Nitrofurantoin (Unverified Adverse Reaction, Unknown, vomiting, 11/05/16) Pregabalin (Unverified Adverse Reaction, Unknown, VERY EMOTIONAL CRYING, ) Social History Smoking Status: Current Every Day Smoker Hx Tobacco Use In Past Year?: Yes (cigarettes 1 PPXD X 30 YRS) Hx Alcohol Use - Type And Amou: No Hx Substance Use - Type And Am: No Problem List Medical Problems: (1) Elevated d-dimer Status: Acute (2) History of CHF (congestive heart failure) Status: Acute (3) History of coronary artery disease Status: Acute (4) SOB (shortness of breath) Status: Acute Physical Exam Vital Signs Last Vital Signs Documentation Date Time Temp Pulse Resp B/P Pulse Ox O2 Delivery O2 Flow Rate FiO2 11/07/16 08:00 Room Air 11/07/16 07:36 36.8 82 16 153/77 92 Physical Exam Constitutional: Level of Distress: NAD, chronically ill Psychiatric: Mental Status: abnormal affect Orientation: to time, to place, to person Memory: recent memory normal, remote memory normal Head: normocephalic, atraumatic Eyes: Pupils: PERRLA Neck: pertinent finding (No JVD) Lungs: Respiratory effort: no dyspnea Auscultation: deminished air movement, decreased breath sounds, expiratory wheezing (left lower lobe), pertinent finding (decreased breath sounds at the left base ? consolidation) Cardiovascular: Heart Auscultation: RRR (88 bpm), no rubs, II/ JONA Peripheral Pulses: Radial Pulse: normal on the left, normal on the right Dorsalis Pedis Pulse: decreased on the left, decreased on the right Abdomen: Bowel Sounds: normal Inspection & Palpation: soft Extremities: no cyanosis, no edema, no clubbing Neurologic: Cranial Nerves: grossly intact Assessment and Plan Assessment and Plan Admission with acute on chronic renal dysfunction, hyperkalemia, mild acute decompensated diastolic congestive heart failure, resolved. Mildly elevated cardiac enzymes, likely multifactorial in etiology (renal dysfunction, electrolyte issues, chronic RBBB, LVH, uncontrolled hypertension). Patient asymptomatic in regards to angina symptoms. Pharmacological stress testing nonischemic in December 2015. Upper respiratory infection, ? left lower lobe consolidation RECOMMENDATIONS/PLAN: PA and lateral chest x-ray Continue cardiac medications as prescribed. Close outpatient general cardiology follow-up. Laboratory Results Last 24 Hours Test 11/06/16 10:48 11/06/16 16:15 11/06/16 20:17 11/07/16 06:15 Bedside Glucose 205 mg/dl 318 mg/dl 267 mg/dl White Blood Count 8.11 K/uL Red Blood Count 3.22 M/uL Hemoglobin 9.9 g/dL Hematocrit 29.8 % Mean Corpuscular Volume 92.5 fL Mean Corpuscular Hemoglobin 30.7 pg Mean Corpuscular Hemoglobin Concent 33.2 g/dl Platelet Count 219 K/uL Mean Platelet Volume 8.5 fL Neutrophils (%) (Auto) 66.1 % Lymphocytes (%) (Auto) 21.6 % Monocytes (%) (Auto) 7.9 % Eosinophils (%) (Auto) 3.7 % Basophils (%) (Auto) 0.5 % Neutrophils # (Auto) 5.36 K/uL Lymphocytes # (Auto) 1.75 K/uL Monocytes # (Auto) 0.64 K/uL Eosinophils # (Auto) 0.30 K/uL Basophils # (Auto) 0.04 K/uL RDW Standard Deviation 42.9 fL RDW Coefficient of Variation 12.6 % Immature Granulocyte % (Auto) 0.2 % Immature Granulocyte # (Auto) 0.02 K/uL Sodium Level 140 mmol/L Potassium Level 4.6 mmol/L Chloride Level 110 mmol/L Carbon Dioxide Level 20 mmol/L Anion Gap 10.0 mmol/L Blood Urea Nitrogen 35 mg/dl Creatinine 1.60 mg/dl Est Creatinine Clear Calc Drug Dose 45.6 ml/min Estimated GFR () 42.5 Estimated GFR (Non- 36.7 BUN/Creatinine Ratio 21.7 Random Glucose 250 mg/dl Calcium Level 8.6 mg/dl Magnesium Level 2.1 mg/dl Test 11/07/16 06:35 Bedside Glucose 242 mg/dl
--- NOTE | 2016-11-07 10:31 | Pharmacy Progress Note ---
Glycemic Control: Progress Nt Date of Service Nov 07, 2016. Scope Glycemic Pharmacist consulted by Dr Wright on 11/05/16 for glycemic control and to write orders per [facility] inpatient glycemic control protocol. Objective Accuchecks BSG (last 24hrs): Test 11/06/16 10:48 11/06/16 16:15 11/06/16 20:17 11/07/16 06:15 Bedside Glucose 205 mg/dl (70-90) 318 mg/dl (70-90) 267 mg/dl (70-90) Random Glucose 250 mg/dl (70-99) Test 11/07/16 06:35 Bedside Glucose 242 mg/dl (70-90) Laboratory Data (last 24hrs) Test 11/07/16 06:15 Anion Gap 10.0 mmol/L BUN/Creatinine Ratio 21.7 Blood Urea Nitrogen 35 mg/dl Creatinine 1.60 mg/dl Potassium Level 4.6 mmol/L Sodium Level 140 mmol/L White Blood Count 8.11 K/uL Red Blood Count 3.22 M/uL Hemoglobin 9.9 g/dL Hematocrit 29.8 % Mean Corpuscular Volume 92.5 fL Mean Corpuscular Hemoglobin 30.7 pg Mean Corpuscular Hemoglobin Concent 33.2 g/dl Platelet Count 219 K/uL Mean Platelet Volume 8.5 fL Neutrophils (%) (Auto) 66.1 % Lymphocytes (%) (Auto) 21.6 % Monocytes (%) (Auto) 7.9 % Eosinophils (%) (Auto) 3.7 % Basophils (%) (Auto) 0.5 % Neutrophils # (Auto) 5.36 K/uL Lymphocytes # (Auto) 1.75 K/uL Monocytes # (Auto) 0.64 K/uL Eosinophils # (Auto) 0.30 K/uL Basophils # (Auto) 0.04 K/uL HbA1c: Test 11/05/16 20:05 Hemoglobin A1c 9.1 % (4.5-5.6) H Recent Pertinent Medications Outpatient Anti-diabetic Regimen: * Levemir 14 units SQ BID * Novolog - CR 1 unit for 15g CHO consumed; CF 70mg/dL/unit for BSG > 150mg/dL * A1c = 9.2 % 11/05/16 The patient is currently receiving: * Basal insulin: Levemir 14 units every 12 hours * Correctional Insulin: Novolog Correction per scale ACHS Goal Range: Low 140 mg/dL - High 180 mg/dL Correction Factor: 25 mg/dL/unit * Prandial insulin: Per carb ratio of 1 unit per 15 grams CHO consumed Risk Factors for Insulin Resistance: * Diet: Type 2 DM/ Low K Assessment & Plan ASSESSMENT: 11/06/16 * 51 yo TYPE 1 diabetic female, since 13 years of age, uncontrolled on SQ insulin at home, A1c = 9.2%. Pt seen by tobacco prevention health educator today to discuss self- managment of diabetes. * Admitted for CHF, seen by cardiology today. * So far patient's BSGs have been pretty well controlled as inpatient, I will just lower goal range slightly for patient's age. * ADA & AACE recommend a goal blood sugar range 140-180 mg/dl for the majority of critically ill & non-critically ill patients. However, more stringent targets may be selected in individual cases. 11/07/16 * Blood sugars all above goal range, patient refused to receive 5 units last night for correction, and only agreed to 2 units, resulting in BSG of 250mg/dL this morning. * I will tighten patient's CR slightly, but no further changes, as patient is refusing proper doses. PLAN FOR INPATIENT GLYCEMIC CONTROL: * Basal insulin with LEVEMIR 14 units SQ BID * Correctional Insulin with NOVOLOG per scale ACHS or Q6hrs while NPO * Goal Range: Low 120 mg/dL - High 160 mg/dL * Correction Factor: 25 mg/dL/unit * TIGHTEN: Nutritional / Prandial insulin per carb ratio of 1 unit per 12 grams CHO consumed * Please note that the plan above was derived based on current level of insulin resistance and hospital stress. These recommendations are appropriate for inpatient admission only. Plan of care upon discharge will need to be reassessed to avoid potential outpatient hypo/hyperglycemia. Thank you.
--- NOTE | 2016-11-07 10:43 | DIAGNOSTIC IMAGING REPORT ---
CHEST 2 VIEWS ROUTINE HISTORY: Short of breath. COMPARISON: Chest 11/05/2016. FINDINGS: No pneumothorax. Poststernotomy changes. The heart is mildly enlarged. Small bilateral pleural effusions persist. Pulmonary basilar congestion has improved. No focal lung consolidations to suggest pneumonia. IMPRESSION: 1. Improvement in the mild congestive change. 2. Small bilateral pleural effusions persist. Electronically signed by: Justin Ramirez M.D. 11/07/2016 10:42 AM Dictated Date/Time: 11/07/2016 10:40 AM
[2016-11-07] MEDS ORDERED: METO50TA17 PO (11:13)
[2016-11-07] MEDS ORDERED: BMX1 PO (11:13)
--- NOTE | 2016-11-07 11:25 | Discharge Instructions ---
Discharge Instructions Date of Service Nov 07, 2016. Admission Reason for Admission: Chf Exacerbation Discharge Discharge Diagnosis / Problem: Mild CHF exacerbation; acute kidney injury, hyperkalemia Discharge Goals Goal(s): Decrease discomfort, Improve function, Diagnostic testing, Therapeutic intervention Activity Recommendations Activity Limitations: resume your previous activity . Instructions / Follow-Up Instructions / Follow-Up Please follow-up with Dr. Devon Biggs on November 12 @ 1:50PM You will be taking Bumex 1mg daily Primary care should recheck blood work for kidneys, potassium and magnesium to make sure they are stable Your dose of metoprolol has increased to 50mg twice a day You should follow up with endocrinology - your Ha1c is 9.1% - you may need an insulin pump Current Hospital Diet Patient's current hospital diet: Diabetes Type 2 Diet, Low Potassium Diet (2g K) Discharge Diet Recommended Diet: AHA Diet (Heart Healthy), Diabetes Type 1 Diet Pending Studies Studies pending at discharge: no Laboratory Results Hemoglobin A1c Test 11/05/16 20:05 Range/Units Estimated Average Glucose 214 mg/dl Hemoglobin A1c 9.1 H 4.5-5.6 % Medical Emergencies . Who to Call and When: Medical Emergencies: If at any time you feel your situation is an emergency, please call 911 immediately. . Non-Emergent Contact Non-Emergency issues call your: Primary Care Provider, Clinical Pharmacy Technician . . "Provider Documentation" section prepared by Roney Judd. VTE Core Measure Inpt VTE Proph given/why not?: Unfractionated heparin SQ
[2016-11-07 11:28] VITALS: BP 133/76; PULSE 70; TEMP 36.8; O2SAT 94
--- NOTE | 2016-11-07 11:36 | Discharge Summary ---
Discharge Summary Date of Service Nov 07, 2016. Discharge Summary Admission Date: Nov 05, 2016 at 22:16 Discharge Date: Nov 07, 2016 Discharge Disposition: Home Principal Diagnosis: Mild Decompensated Heart Failure with Preserved Ejection Fraction Acute Kidney Injury superimposed on CKD stage 3, improving Hyperkalemia, resolved CAD s/p CABG Uncontrolled BP Type 1 DM Medication Reconciliation New Medications: Bumetanide (Bumetanide) 1 Mg Tab 1 MG PO QAM for 30 Days, #30 TAB Metoprolol Tartrate (Metoprolol Tartrate) 50 Mg Tab 50 MG PO BID for 30 Days, #60 TAB Continued Medications: Acetaminophen (Tylenol) 500 Mg Tab 1000 MG PO QID, TAB Amphetamine-Dextroamphetamine 10MG (Adderall 10MG) 1 Tab Tab 10 MG PO BID, TAB Amphetamine-Dextroamphetamine 30MG (Adderall Xr 30MG) 1 Cap Cap 30 MG PO BID, CAP Aspirin (Aspirin Ec) 81 Mg Tab 162 MG PO HS Biotin (Biotin 5000) 5 Mg Cap 5 MG PO QPM Bisacodyl (Dulcolax *) 5 Mg Tabec 15 MG OR HS Cholecalciferol (Vitamin D) 1,000 Inter.unit Tab 5000 INTER.UNIT PO QPM, TAB Cranberry (Vaccinium Macrocarp (Cranberry Extract) 250 Mg Tab 500 MG PO QAM Estrog Conj/Medryoxyprog Acet (Prempro 0.3MG/1.5MG) Tab 1 TAB PO QAM, TAB Insulin Aspart (Novolog) Inj 1 UNIT SC AC, 0 Refills as directed per Sliding Scale, 1:15 FOR CARB COVERAGE MAX OF 15 UNITS PER DAY Insulin Detemir (Levemir) 100 Unit/ Inj 14 UNITS SQ BID Linaclotide (Linzess) 145 Mcg Cap 145 MCG PO QAM Liothyronine Sodium (Liothyronine Sodium) 5 Mcg Tab 10 MCG PO QAM, #180 Loratadine (Claritin) 10 Mg Tab 10 MG PO QAM, TAB Lorazepam (Ativan *) 1 Mg Tab 1 MG PO HS Metoclopramide Hcl (Reglan) 10 Mg Tab 10 MG PO QID, TAB Olopatadine Hydrochloride (Pataday) 37 Drops/2.5 Ml Soln 1 DROPS OPB DAILY for AFTER SHOWER, ML Ondansetron Tab (Zofran) 8 Mg Tab 8 MG PO TID, TAB Pantoprazole (Protonix) 40 Mg Tab 40 MG PO BID, 0 Refills Prasterone (Dhea) (Dhea 50) 50 Mg Cap 50 MG PO DAILY Ranitidine (Zantac) 150 Mg Tab 150 MG PO BID, TAB Thyroid (Wp Thyroid) 65 Mg Tab 65 MG PO QAM Travoprost (Travatan Oph Soln 0.004% *) 37 Drops/2.5 Ml Soln 1 DROP OPB HS Vortioxetine HBr (Trintellix) 20 Mg Tab 30 MG PO QAM Discontinued Medications: Bumetanide (Bumex) 1 Mg Tab 1 MG PO Q2D, TAB Bumetanide (Bumex) 1 Mg Tab 0.5 MG PO Q2D, TAB Metoprolol Tartrate (Lopressor) (Lopressor) 25 Mg Tab 1.5 TAB PO BID, TAB Admission Information HPI (per Admitting provider): 51 year female who was referred to the ER for worsening renal function and high potassium. Patient was seen in the cardiology office a couple of weeks ago and was noted to have high blood pressure and increased BLLE edema. At that time, metoprolol was increased and she was instructed to take an additional dose of Bumex a couple of times per week for edema. Labs were then obtained that showed worsening renal function and high potassium. Patient was then instructed to not take any additional Bumex and to decrease the dose. She reports she never took any additional doses. Despite these medication changes, patient's renal function has continued to worsen and hyperkalemia has persisted. She was then referred to the ER for further evaluation. Patient notes increasing shortness of breath over the past few weeks. She notes a dry and moist but non productive cough as well. Edema to the BLLE has been present for the past month. She does not weigh herself on the daily basis. She notes occasional orthopnea. She denies chest pain. No lightheadedness, dizziness, diaphoresis, or syncopal events. She denies abdominal pain, nausea, vomiting, and diarrhea. No fever or chills. She denies urinary symptoms. In the ER patient's creat is 2.0 (baseline mid 1's), K+ is 5.3. Trop is mildly elevated at 0.054. EKG shows new T-wave inversions laterally. Physical Exam (per Admitting): General Appearance: no apparent distress Head: normocephalic Eyes: normal inspection ENT: hearing grossly normal Neck: supple, no JVD Respiratory/Chest: no respiratory distress, + crackles (faint, left base) Cardiovascular: regular rate, rhythm, + pertinent finding (+1 pitting edema BLLE) Abdomen/GI: normal bowel sounds, non tender, soft Extremities/Musculoskelatal: normal inspection, no calf tenderness Neurologic/Psych: no motor/sensory deficits, alert, normal mood/affect, oriented x 3 Skin: normal color, warm/dry Hospital Course This is a 51 year old female with PMH of CAD s/p CABG, type 1 DM, CKD stage 3, hx. of ischemic cardiomyopathy, tobacco use disorder, ADHD, depression/anxiety, HTN, hypothyroidism presents with worsening creatinine and hyperkalemia Mild Decompensated Heart Failure with Preserved Ejection Fraction 11/07 patient is doing well today no edema in the lower extremities will obtain PA-lateral CXR to r/o fluid and/or PNA continue Bumex 1mg daily continue b-kathy failed MEENA-I trial as outpatient 11/06 echo performed, EF ~ 55% BNP on admission > 17,000 CXR with mild congestive changes patient received one dose of Lasix in the ER now on Bumex 1mg daily creat improved from 2.0 to 1.6 lower extremity edema improved appreciate cardiology and nephrology input Acute Kidney Injury superimposed on CKD stage 3, improving creat at baseline is around 1.5 creat on admission up to 2.0 was given IV lasix in the ER; creat has been improving down to 1.6 seems to be around her baseline Hyperkalemia, resolved potassium on admission = 5.3 given IV Lasix; K now wnl CAD s/p CABG last stress in December 2015 = negative appreciate cardio input mild elevation of troponin, likely multifactorial - hyperkalemia, uncontrolled BP metoprolol increased as per cardio continue aspirin, metoprolol - failed statin, MEENA-I trials Uncontrolled BP blood pressure elevated continue Bumex and metoprolol has been increased, monitor blood pressure Type 1 DM Ha1c = 9.1 uncontrolled, likely secondary to noncompliance Levemir and insulin sliding scale for now Hypothyroidism continue Cytomel and [place] thyroid Depression/Anxiety continue home medications Menopausal Symptoms patient had been started on hormonal therapy as outpatient may require tapering or weaning off of hormone therapy as edema is worsening with this DVT ppx subq heparin FULL CODE Total time spent on discharge = 35 minutes This includes examination of the patient, discharge planning, medication reconciliation, and communication with other providers. Discharge Instructions Please follow-up with Dr. Devon Biggs on November 12 @ 1:50PM You will be taking Bumex 1mg daily Primary care should recheck blood work for kidneys, potassium and magnesium to make sure they are stable Your dose of metoprolol has increased to 50mg twice a day You should follow up with endocrinology - your Ha1c is 9.1% - you may need an insulin pump
[2016-11-07] MEDS ORDERED: ADDERALL 30 MG PO SCH (12:00)
[2016-11-07 12:31] VITALS: BP 133/76; PULSE 70; TEMP 36.8; O2SAT 94
[2017-03-02] MEDS ORDERED: DXY100 PO (12:49)
[2017-05-10] MEDS ORDERED: LSX40 PO (14:03)
[2017-05-18] MEDS ORDERED: THYR1TAB PO (14:34)
[2017-05-29] MEDS ORDERED: FRS/40 PO ×2 (14:34→18:44)
[2017-05-29] MEDS ORDERED: VNTHFA/IN INH (18:44)
[2017-05-29] MEDS ORDERED: LVMI SC (18:44)
[2017-05-29] MEDS ORDERED: DLC5 PO (18:44)
[2017-05-29] MEDS ORDERED: METO25TA56 PO (18:44)
[2017-05-29] MEDS ORDERED: AMPH30CA3 PO (18:44)
[2017-05-29] MEDS ORDERED: AMPH10TA2 PO (18:44)
[2017-06-05] MEDS ORDERED: LVQ750 PO (12:52)
== END 2016-11-07 12:50 | disposition home or self-care (01) | DRG 682 ==
LOC: ENRESERVTM → ENRESERVDT → C.EDB 19:28 → C.2T 22:16
PROVIDERS: ADMIT Family Medicine; ATTEND Family Medicine
DX: N17.9 Acute kidney failure, unspecified (principal); I50.33 Acute on chronic diastolic (congestive) heart failure; I13.0 Hypertensive heart and chronic kidney disease with heart failure and stage 1 through stage 4 chronic kidney disease, or unspecified chronic kidney disease; N18.3 Chronic kidney disease, stage 3 (moderate); I25.5 Ischemic cardiomyopathy; E03.9 Hypothyroidism, unspecified; E87.5 Hyperkalemia; I25.10 Atherosclerotic heart disease of native coronary artery without angina pectoris; K21.9 Gastro-esophageal reflux disease without esophagitis; E78.5 Hyperlipidemia, unspecified; F31.9 Bipolar disorder, unspecified; F90.9 Attention-deficit hyperactivity disorder, unspecified type; I73.9 Peripheral vascular disease, unspecified; I45.10 Unspecified right bundle-branch block; H40.9 Unspecified glaucoma; J06.9 Acute upper respiratory infection, unspecified; F17.210 Nicotine dependence, cigarettes, uncomplicated; E10.22 Type 1 diabetes mellitus with diabetic chronic kidney disease; E10.319 Type 1 diabetes mellitus with unspecified diabetic retinopathy without macular edema; E10.65 Type 1 diabetes mellitus with hyperglycemia; E10.43 Type 1 diabetes mellitus with diabetic autonomic (poly)neuropathy; K31.84 Gastroparesis; D63.1 Anemia in chronic kidney disease; F41.0 Panic disorder [episodic paroxysmal anxiety]; J32.9 Chronic sinusitis, unspecified; N95.1 Menopausal and female climacteric states; R74.8 Abnormal levels of other serum enzymes; R79.89 Other specified abnormal findings of blood chemistry; R94.31 Abnormal electrocardiogram [ECG] [EKG]; Z82.49 Family history of ischemic heart disease and other diseases of the circulatory system; Z79.890 Hormone replacement therapy; Z95.1 Presence of aortocoronary bypass graft; Z79.899 Other long term (current) drug therapy; Z91.19 Patient's noncompliance with other medical treatment and regimen; Z79.82 Long term (current) use of aspirin; Z79.4 Long term (current) use of insulin

== ENCOUNTER 2016-11-16 20:04 | Emergency (ER) | payer OTHER ==
[~2016-11-16] VITALS: Ht 170.2 cm; Wt 84.5 kg
[~2016-11-16 20:04] MED LIST changes: -ARTICHOKE EXTRACT PO; +BMX1 PO; -BUME1TAB PO; +CONJ0.3T3 PO; +CRAN250T PO; -INSUINJ12 SC; +LIOT5TAB9 PO; -METO25TA56 PO; +METO50TA17 PO; -OMEGCAP2 PO; +PRAS50CA3 PO; -PREN1TAB29 PO; -THY/30 PO; +THYR1TAB PO
[2016-11-16 20:12] VITALS: TEMP 36.9; Ht 170.2 cm; Wt 84.5 kg
[2016-11-16] MEDS ORDERED: ATV1 PO (22:05)
[2016-11-16] MEDS ORDERED: DLC5 PO (22:05)
[2016-11-16] MEDS ORDERED: LVMI SC (22:05)
[2016-11-16] MEDS ORDERED: CHOLTAB11 PO (22:05)
[2016-11-16] MEDS ORDERED: NVLG SC (22:05)
[2016-11-16] MEDS ORDERED: ONDA-63 PO (22:05)
[2016-11-16] MEDS ORDERED: TRAV0.00 OP (22:05)
[2016-11-16 22:13] LABS: BASO % 0.5 %; BASO ABS # 0.05 K/uL (0-0.2); COMPLETE YES; EOS % 4.1 %; HEMATOCRIT 31.4 % (37-47); IG% 0.3 %; LYMPH % 27.5 %; MEAN CELL VOLUME 94.6 fL (80-100); MEAN CORPUSCULAR HEMOGLOBIN 30.7 pg (25-34); MEAN CORPUSCULAR HGB CONC 32.5 g/dl (32-36); MEAN PLATELET VOLUME 9.5 fL (7.4-10.4); MONO % 5.2 %; NEUT % 62.4 %; PLATELET COUNT 331 K/uL (130-400); RED BLOOD COUNT 3.32 M/uL (4.2-5.4); WHITE BLOOD COUNT 10.19 K/uL (4.8-10.8)
--- NOTE | 2016-11-16 22:13 | DIAGNOSTIC IMAGING REPORT ---
CHEST ONE VIEW PORTABLE CLINICAL HISTORY: SHORTNESS OF BREATH dyspnea COMPARISON STUDY: 11/07/2016 FINDINGS: Small bilateral pleural effusions. Components of congestive heart failure. Heart is mildly enlarged. Median sternotomy. IMPRESSION: Congestive heart failure. Small bilateral pleural effusions. Electronically signed by: Sandeep Del Valle M.D. 11/16/2016 10:12 PM Dictated Date/Time: 11/16/2016 10:11 PM
[2016-11-16 22:20] LABS: BUN/CREATININE RATIO 24.4 (10-20); CALCIUM 9.2 mg/dl (8.5-10.1); CREATININE 2.1 mg/dl (0.60-1.20); POTASSIUM 4.9 mmol/L (3.5-5.1)
[2016-11-16 22:21] LABS: PARTIAL THROMBOPLASTIN RATIO 0.9; PROTHROMBIN TIME (PATIENT) 10.2 SECONDS (9.0-12.0)
[2016-11-16 22:23] LABS: ALB/GLOB RATIO 1.3 (0.9-2)
[2016-11-16 23:29] VITALS: BP 201/108; PULSE 85; O2SAT 97
--- NOTE | 2016-11-18 00:31 | EMERGENCY ROOM VISIT NOTE ---
History Report prepared by Millie: Rodrigo Caballero Under the Supervision of: Dr. Phillip Velasquez D.O. First contact with patient: 22:50 Chief Complaint: SHORTNESS OF BREATH Stated Complaint: SOB, WEAKNESS Nursing Triage Summary: pt was here inpatient last week, states was feeling ok for the first couple days after being home then the last couple days she feels she has declined History of Present Illness The patient is a 51 year old female who presents to the Emergency Room with complaints of persistent shortness of breath beginning a few days prior to arrival. She associates weakness with today's symptoms. The patient notes she was in the hospital last week for similar symptoms of shortness of breath, high potassium, and fluid retention. She states she is an every day smoker. The patient notes she was at [facility] on Saturday for blood work and follows with Yoshi Goodson (Nephrology) for her kidneys. She states she takes 1 mg Bumex a day. 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 A total of 10 systems reviewed and were otherwise negative. Past Medical & Surgical Medical Problems: (1) ADD (attention deficit disorder) (2) Anxiety (3) CAD (coronary artery disease) (4) CHF exacerbation (5) CKD (chronic kidney disease) stage 3, GFR 30-59 ml/min (6) Depression (7) Diabetes mellitus type 1 (8) Dyslipidemia (9) GERD (gastroesophageal reflux disease) (10) Glaucoma (11) HTN (hypertension) (12) Hypothyroidism (13) Tobacco abuse Surgical Problems: (1) H/O nasal septoplasty (2) History of section (3) S/P CABG x 2 Family History FH: CAD (coronary artery disease) FATHER ([place] at age 47, CABG x 4 ) Social History Smoking Status: Current Every Day Smoker Alcohol Use: none Housing Status: lives with family Current/Historical Medications Scheduled Acetaminophen (Tylenol), 1,000 MG PO QID Amphetamine-Dextroamphetamine 10MG (Adderall 10MG), 10 MG PO BID Amphetamine-Dextroamphetamine 30MG (Adderall Xr 30MG), 30 MG PO BID Aspirin (Aspirin Ec), 162 MG PO HS Biotin (Biotin 5000), 5 MG PO QPM Bisacodyl (Bisacodyl EC), 15 MG PO HS Bumetanide (Bumetanide), 1 MG PO QAM Cholecalciferol (D-5000), 1 TAB PO DAILY Cranberry (Vaccinium Macrocarp (Cranberry Extract), 500 MG PO QAM Insulin Aspart (Novolog), 1 UNIT SC AC Insulin Detemir (Levemir), 14 UNITS SC BID Linaclotide (Linzess), 145 MCG PO QAM Liothyronine Sodium (Liothyronine Sodium), 10 MCG PO QAM Loratadine (Claritin), 10 MG PO QAM Lorazepam (Lorazepam), 1 MG PO HS Metoclopramide Hcl (Reglan), 10 MG PO QID Metoprolol Tartrate (Lopressor) (Lopressor), 75 MG PO BID Ondansetron (Ondansetron HCl), 8 MG PO TID Pantoprazole (Protonix), 40 MG PO BID Ranitidine (Zantac), 150 MG PO BID Thyroid (Wp Thyroid), 65 MG PO QAM Travoprost (Travatan Z), 1 DROPS OP HS Vortioxetine HBr (Trintellix), 30 MG PO QAM Scheduled PRN Olopatadine Hydrochloride (Pataday), 1 DROPS OPB DAILY PRN for prn Allergies Coded Allergies: Penicillins (Verified Allergy, Intermediate, BLOTCHY SKIN/ ITCHY, 11/16/16) Vancomycin (Unverified Allergy, Intermediate, SHORTNESS OF BREATH, 11/16/16 ) Clopidogrel (Verified Allergy, Mild, rash, 11/16/16) rash due to Plavix or ertapenem Ertapenem (Verified Allergy, Mild, rash, 11/16/16) rash due to Plavix or ertapenem? Cephalosporins (Verified Allergy, Unknown, CECLOR-UNKNOWN, 11/16/16) Erythromycin (Unverified Allergy, Unknown, FROM H AND P-RASH, 11/16/16) Statins (Unverified Allergy, Unknown, MYALGIA, 11/16/16) Codeine (Verified Adverse Reaction, Unknown, VOMITING, 11/16/16) Nitrofurantoin (Unverified Adverse Reaction, Unknown, vomiting, 11/16/16) Pregabalin (Unverified Adverse Reaction, Unknown, VERY EMOTIONAL CRYING, ) Physical Exam Vital Signs Date Time Temp Pulse Resp B/P Pulse Ox O2 Delivery O2 Flow Rate FiO2 11/16/16 23:29 85 20 201/108 97 11/16/16 22:07 81 16 195/82 94 Room Air 11/16/16 21:45 84 11/16/16 20:12 36.9 84 18 149/77 96 Room Air Physical Exam CONSTITUTIONAL/VITAL SIGNS: Reviewed / noted above. GENERAL: Non-toxic in appearance. INTEGUMENTARY: Warm, dry, and [place]. HEAD: Normocephalic. EYES: without scleral icterus or trauma. ENT/OROPHARYNX: clear and moist. LYMPHADENOPATHY/NECK: Is supple without lymphadenopathy or meningismus. RESPIRATORY: Lungs clear and equal. CARDIOVASCULAR: Regular rate and rhythm. GI/ABDOMEN: Soft and nontender. No organomegaly or pulsatile mass. No rebound or guarding. Normal bowel sounds. EXTREMITIES: Warm and well perfused. BACK: No CVA tenderness. NEUROLOGICAL: Intact without focal deficits. PSYCHIATRIC: normal affect. MUSCULOSKELETAL: Normally developed with good muscle tone. Medical Decision & Procedures ER Provider Diagnostic Interpretation: X ray results and stated below per my interpretation and radiology interpretation. CHEST ONE VIEW PORTABLE CLINICAL HISTORY: SHORTNESS OF BREATH dyspnea COMPARISON STUDY: 11/07/2016 FINDINGS: Small bilateral pleural effusions. Components of congestive heart failure. Heart is mildly enlarged. Median sternotomy. IMPRESSION: Congestive heart failure. Small bilateral pleural effusions. Electronically signed by: Sandeep Del Valle M.D. 11/16/2016 10:12 PM Laboratory Results 11/16/16 21:46 Red Blood Count 3.32, Mean Corpuscular Volume 94.6, Mean Corpuscular Hemoglobin 30.7, Mean Corpuscular Hemoglobin Concent 32.5, Mean Platelet Volume 9.5, Neutrophils (%) (Auto) 62.4, Lymphocytes (%) (Auto) 27.5, Monocytes (%) (Auto) 5.2, Eosinophils (%) (Auto) 4.1, Basophils (%) (Auto) 0.5, Neutrophils # (Auto) 6.36, Lymphocytes # (Auto) 2.80, Monocytes # (Auto) 0.53, Eosinophils # (Auto) 0.42, Basophils # (Auto) 0.05 11/16/16 21:46 Test 11/16/16 21:46 White Blood Count 10.19 K/uL (4.8-10.8) Red Blood Count 3.32 M/uL (4.2-5.4) Hemoglobin 10.2 g/dL (12.0-16.0) Hematocrit 31.4 % (37-47) Mean Corpuscular Volume 94.6 fL (80-100) Mean Corpuscular Hemoglobin 30.7 pg (25-34) Mean Corpuscular Hemoglobin Concent 32.5 g/dl (32-36) Platelet Count 331 K/uL (130-400) Mean Platelet Volume 9.5 fL (7.4-10.4) Neutrophils (%) (Auto) 62.4 % Lymphocytes (%) (Auto) 27.5 % Monocytes (%) (Auto) 5.2 % Eosinophils (%) (Auto) 4.1 % Basophils (%) (Auto) 0.5 % Neutrophils # (Auto) 6.36 K/uL (1.4-6.5) Lymphocytes # (Auto) 2.80 K/uL (1.2-3.4) Monocytes # (Auto) 0.53 K/uL (0.11-0.59) Eosinophils # (Auto) 0.42 K/uL (0-0.5) Basophils # (Auto) 0.05 K/uL (0-0.2) RDW Standard Deviation 44.3 fL (36.4-46.3) RDW Coefficient of Variation 12.9 % (11.5-14.5) Immature Granulocyte % (Auto) 0.3 % Immature Granulocyte # (Auto) 0.03 K/uL (0.00-0.02) Prothrombin Time 10.2 SECONDS (9.0-12.0) Prothromb Time International Ratio 1.0 (0.9-1.1) Activated Partial Thromboplast Time 23.5 SECONDS (21.0-31.0) Partial Thromboplastin Ratio 0.9 Anion Gap 8.0 mmol/L (3-11) Est Creatinine Clear Calc Drug Dose 35.0 ml/min Estimated GFR () 30.6 Estimated GFR (Non- 26.4 BUN/Creatinine Ratio 24.4 (10-20) Calcium Level 9.2 mg/dl (8.5-10.1) Total Bilirubin 0.2 mg/dl (0.2-1) Aspartate Amino Transf (AST/SGOT) 45 U/L (15-37) Alanine Aminotransferase (ALT/SGPT) 207 U/L (12-78) Alkaline Phosphatase 376 U/L (45-117) Total Protein 6.7 gm/dl (6.4-8.2) Albumin 3.8 gm/dl (3.4-5.0) Globulin 2.9 gm/dl (2.5-4.0) Albumin/Globulin Ratio 1.3 (0.9-2) Laboratory results as stated above per my review. ECG Indication: SOB/dyspnea Rate (beats per minute): 82 Rhythm: normal sinus Findings: RBBB, no ectopy, other (no acute injury) ED Course 2253: Previous medical records were reviewed. The patient was evaluated in room B3B. A complete history and physical examination was performed. 2310: On reevaluation, the patient is doing well. I discussed the results and findings with the patient. She verbalized agreement of the treatment plan. The patient was discharged home. Medical Decision the differential was considered includes acute myocardial infarction, acute coronary syndrome, myocarditis, pericarditis, pericardial effusions /tamponad, esophageal perforation, pulmonary embolism, pneumonia, pneumothorax, cardiomyopathy, congestive heart, anemia , COPD/asthma exacerbation. This is a 49-year-old female who presents to the ED with a chief complaint of shortness of breath. The patient has had similar symptoms in the past and reports mild worsening of her symptoms. She reports having had blood work recently and that her creatinine was elevated. Her creatinine today is 2.1. She states that it was the same at [facility] a few days ago. Chest x-ray reveals some congestive changes. Clinically she does not appear to have acute pulmonary edema. Other blood work was unremarkable. The patient was told the results of the test. She states that she would like to go home at this time. No specific treatment was provided. She was discharged. She was told to return for any worsening or new concerns. Impression Primary Impression: Dyspnea Additional Impressions: CHF (congestive heart failure) Renal insufficiency Scribe Attestation The scribe's documentation has been prepared under my direction and personally reviewed by me in its entirety. I confirm that the note above accurately reflects all work, treatment, procedures, and medical decision making performed by me. Departure Information Dispostion Home / Self-Care Referrals Devon Biggs D.O. (PCP) Forms HOME CARE DOCUMENTATION FORM, IMPORTANT VISIT INFORMATION Patient Instructions My [facility] Additional Instructions Follow-up with your doctors for recheck this coming week. Return for any worsening or new concerns. Problem Qualifiers
[2017-03-02] MEDS ORDERED: DXY100 PO (12:49)
[2017-05-10] MEDS ORDERED: LSX40 PO (14:03)
[2017-05-18] MEDS ORDERED: THYR1TAB PO (14:34)
[2017-05-29] MEDS ORDERED: FRS/40 PO ×2 (14:34→18:44)
[2017-05-29] MEDS ORDERED: METO25TA56 PO (18:44)
[2017-05-29] MEDS ORDERED: AMPH30CA3 PO (18:44)
[2017-05-29] MEDS ORDERED: LVMI SC (18:44)
[2017-05-29] MEDS ORDERED: AMPH10TA2 PO (18:44)
[2017-05-29] MEDS ORDERED: DLC5 PO (18:44)
[2017-05-29] MEDS ORDERED: VNTHFA/IN INH (18:44)
[2017-06-05] MEDS ORDERED: LVQ750 PO (12:52)
== END 2016-11-16 23:30 | disposition home or self-care (01) ==
LOC: C.EDB 20:05
DX: R06.00 Dyspnea, unspecified (principal); I50.9 Heart failure, unspecified; N28.9 Disorder of kidney and ureter, unspecified; F98.8 Other specified behavioral and emotional disorders with onset usually occurring in childhood and adolescence; F41.9 Anxiety disorder, unspecified; I25.10 Atherosclerotic heart disease of native coronary artery without angina pectoris; N18.3 Chronic kidney disease, stage 3 (moderate); E10.9 Type 1 diabetes mellitus without complications; E78.5 Hyperlipidemia, unspecified; K21.9 Gastro-esophageal reflux disease without esophagitis; H40.9 Unspecified glaucoma; I12.9 Hypertensive chronic kidney disease with stage 1 through stage 4 chronic kidney disease, or unspecified chronic kidney disease; E03.9 Hypothyroidism, unspecified; Z95.1 Presence of aortocoronary bypass graft; F17.210 Nicotine dependence, cigarettes, uncomplicated; Z82.49 Family history of ischemic heart disease and other diseases of the circulatory system; Z79.4 Long term (current) use of insulin; Z79.82 Long term (current) use of aspirin; Z79.899 Other long term (current) drug therapy

== ENCOUNTER 2017-02-28 11:22 | Inpatient (IN) | payer OTHER ==
[~2017-02-28] VITALS: Ht 170.2 cm; Wt 84.0 kg
[~2017-02-28 11:22] MED LIST changes: -CHOL100010 PO; +CHOLTAB11 PO; -CONJ0.3T3 PO; -DLC5 OR; +DLC5 PO; -INSUINJ12 SQ; +LVMI SC; -METO50TA17 PO; +NVLG SC; -NVLGI SC; +ONDA-63 PO; -ONDA8TAB7 PO; -PRAS50CA3 PO; +TRAV0.00 OP; -TRVOPS OPB
[2017-02-28] MEDS ORDERED: THYR1TAB PO (11:47)
[2017-02-28] MEDS ORDERED: TORS20TA2 PO (11:47)
[2017-02-28 12:33] LABS: HEMATOCRIT 33.1 % (37-47); MEAN CELL VOLUME 93.8 fL (80-100); MEAN CORPUSCULAR HEMOGLOBIN 28.9 pg (25-34); MEAN CORPUSCULAR HGB CONC 30.8 g/dl (32-36); PLATELET COUNT 294 K/uL (130-400); RED BLOOD COUNT 3.53 M/uL (4.2-5.4); WHITE BLOOD COUNT 9.01 K/uL (4.8-10.8)
--- NOTE | 2017-02-28 12:40 | DIAGNOSTIC IMAGING REPORT ---
SINGLE VIEW CHEST CLINICAL HISTORY: Dyspnea. FINDINGS: An AP, portable, upright chest radiograph is compared to study dated 11/16/2016. The examination is degraded by portable technique and patient rotation. The patient is status post midline sternotomy. The heart is enlarged and there is atherosclerotic calcification of the thoracic aorta. The pulmonary vasculature is noncongested. There are small pleural effusions with bibasilar airspace opacities. No pneumothorax is seen. The skeletal structures are osteopenic. The bony thorax is grossly intact. IMPRESSION: 1. Cardiomegaly without radiographic evidence of congestive failure. 2. Small pleural effusions with bibasilar airspace opacities. This could represent atelectasis versus an infectious/inflammatory pneumonitis. Clinical correlation will be required. Electronically signed by: Jose Villarreal M.D. 02/28/2017 12:39 PM Dictated Date/Time: 02/28/2017 12:37 PM
[2017-02-28 12:45] LABS: PARTIAL THROMBOPLASTIN RATIO 0.9; PROTHROMBIN TIME (PATIENT) 10.5 SECONDS (9.0-12.0)
[2017-02-28 12:53] LABS: BUN/CREATININE RATIO 27.3 (10-20); CALCIUM 9.3 mg/dl (8.5-10.1); CREATININE 2.4 mg/dl (0.60-1.20); POTASSIUM 4.4 mmol/L (3.5-5.1)
[2017-02-28 12:56] LABS: ALB/GLOB RATIO 1.1 (0.9-2); CKMB/CK RATIO 4.5 (0-3.0)
--- NOTE | 2017-02-28 14:10 | DIAGNOSTIC IMAGING REPORT ---
BILATERAL LOWER EXTREMITY VENOUS DOPPLER HISTORY: Pain. Edema. dv COMPARISON STUDY: 12/14/2015 FINDINGS: There is normal compressibility, flow, and augmentation within the bilateral lower extremity deep venous systems. IMPRESSION: No DVT within the right or left lower extremity. Electronically signed by: Sandeep Del Valle M.D. 02/28/2017 2:09 PM Dictated Date/Time: 02/28/2017 2:08 PM
[2017-02-28] MEDS ORDERED: ASPIRIN 81 MG CHEW PO STA (15:01)
[2017-02-28] MEDS ORDERED: HEPARIN SOD (PORCINE) 1000 UNIT/ML 10 ML VIAL IV STA (15:09)
[2017-02-28] MEDS ORDERED: SODIUM CHLORIDE 0.9% 1000ML 1,000 ML IV STA (15:13)
[2017-02-28] MEDS ORDERED: HEPARIN 25,000 UNIT/500ML D5W 500 ML IV PRN (15:15)
--- NOTE | 2017-02-28 15:21 | EMERGENCY ROOM VISIT NOTE ---
History Report prepared by Millie: Trevon Pennington Under the Supervision of: Dr. Clementine Barnhart M.D. First contact with patient: 12:05 Chief Complaint: REFERRED BY DOCTOR Stated Complaint: CHF SYMPTOMS, SOB, FLUID RETENTION, DEHYDRATION History of Present Illness The patient is a 52 year old female who presents to the Emergency Room with complaints of persistent shortness of breath beginning last week. She also complains of a cough, fatigue, leg swelling, mild chest pain, and abdominal swelling. She states "I have had CHF symptoms for the past three weeks". The patient has a history of CHF, stage III Kidney disease, diabetes, and CABG x2. She states that she has been seen by her heater tender twice this week and received IV Lasix both times. She states "I have not been responding well to the Lasix". The patient's shortness of breath is worsened with exertion. Her chest pain is only present with deep breathing. She notes that she was previously on Plavix. She denies any recent surgeries or travel. The patient smokes about a pack a day. She denies any fevers. Source of History: patient Onset: Last week Quality: other (shortness of breath) Timing: other (persistent) Modifying Factors (Worsening): exertion Associated Symptoms: + cough, + chest pain (mild with deep breathing), + fatigue, No fevers Note: The patient also complains of leg swelling, and abdominal swelling. Review of Systems See HPI for pertinent positives & negatives. A total of 10 systems reviewed and were otherwise negative. Past Medical & Surgical Medical Problems: (1) ADD (attention deficit disorder) (2) Anxiety (3) CAD (coronary artery disease) (4) CHF exacerbation (5) CKD (chronic kidney disease) stage 3, GFR 30-59 ml/min (6) Depression (7) Diabetes mellitus type 1 (8) Dyslipidemia (9) GERD (gastroesophageal reflux disease) (10) Glaucoma (11) HTN (hypertension) (12) Hypothyroidism (13) Shortness of breath (14) Tobacco abuse Surgical Problems: (1) H/O nasal septoplasty (2) History of section (3) S/P CABG x 2 Family History FH: CAD (coronary artery disease) FATHER ([place] at age 47, CABG x 4 ) Social History Smoking Status: Current Every Day Smoker Alcohol Use: none Housing Status: lives with family Current/Historical Medications Scheduled Acetaminophen (Tylenol), 1,000 MG PO QID Amphetamine-Dextroamphetamine 10MG (Adderall 10MG), 10 MG PO BID Amphetamine-Dextroamphetamine 30MG (Adderall Xr 30MG), 30 MG PO BID Aspirin (Aspirin Ec), 162 MG PO HS Biotin (Biotin 5000), 5 MG PO QPM Bisacodyl (Bisacodyl EC), 15 MG PO HS Cholecalciferol (D-5000), 5,000 UNITS PO DAILY Cranberry (Vaccinium Macrocarp (Cranberry Extract), 500 MG PO QAM Insulin Aspart (Novolog), 1 UNIT SC AC Insulin Detemir (Levemir), 16 UNITS SC BID Linaclotide (Linzess), 145 MCG PO QAM Loratadine (Claritin), 10 MG PO QAM Lorazepam (Lorazepam), 1 MG PO HS Metoclopramide Hcl (Reglan), 10 MG PO QID Metoprolol Tartrate (Lopressor) (Lopressor), 25 MG PO BID Ondansetron (Ondansetron HCl), 8 MG PO TID Pantoprazole (Protonix), 40 MG PO BID Ranitidine (Zantac), 150 MG PO BID Thyroid ([place] Thyroid), 1 TAB PO DAILY Torsemide (Demadex), 20 MG PO DAILY Travoprost (Travatan Z), 1 DROPS OP HS Vortioxetine HBr (Trintellix), 30 MG PO QAM Scheduled PRN Olopatadine Hydrochloride (Pataday), 1 DROPS OPB DAILY PRN for prn Allergies Coded Allergies: Penicillins (Verified Allergy, Intermediate, BLOTCHY SKIN/ ITCHY, 02/28/17) Vancomycin (Unverified Allergy, Intermediate, SHORTNESS OF BREATH, 02/28/17 ) Clopidogrel (Verified Allergy, Mild, rash, 02/28/17) rash due to Plavix or ertapenem Ertapenem (Verified Allergy, Mild, rash, 02/28/17) rash due to Plavix or ertapenem? Cephalosporins (Verified Allergy, Unknown, CECLOR-UNKNOWN, 02/28/17) Erythromycin (Unverified Allergy, Unknown, FROM H AND P-RASH, 02/28/17) Statins (Unverified Allergy, Unknown, MYALGIA, 02/28/17) Codeine (Verified Adverse Reaction, Unknown, VOMITING, 02/28/17) Nitrofurantoin (Unverified Adverse Reaction, Unknown, vomiting, 02/28/17) Pregabalin (Unverified Adverse Reaction, Unknown, VERY EMOTIONAL CRYING, ) Physical Exam Vital Signs Date Time Temp Pulse Resp B/P (MAP) Pulse Ox O2 Delivery O2 Flow Rate FiO2 02/28/17 15:51 81 20 148/79 96 Room Air 02/28/17 14:24 75 20 126/65 95 Room Air 02/28/17 14:22 96 Room Air 02/28/17 12:14 76 20 127/65 95 Room Air 02/28/17 11:40 75 02/28/17 11:24 36.6 68 18 128/68 99 Room Air Physical Exam Vital signs reviewed. General: Well-appearing female, in no significant distress. HEENT: No scleral icterus, PERRLA, neck supple. Atraumatic. Cardiovascular: Regular rate and rhythm, no extra sounds. Pulmonary: Clear to auscultation bilaterally, normal work of breathing. Abdomen: Soft, nontender, nondistended, positive bowel sounds. Musculoskeletal: Atraumatic, no peripheral edema. Post sternotomy changes. Neurologic: Patient awake alert and oriented x 3 Skin: Warm, dry, no rash Medical Decision & Procedures ER Provider Diagnostic Interpretation: Radiology results as stated below per my review and radiologist interpretation: SINGLE VIEW CHEST FINDINGS: An AP, portable, upright chest radiograph is compared to study dated 11/16/2016. The examination is degraded by portable technique and patient rotation. The patient is status post midline sternotomy. The heart is enlarged and there is atherosclerotic calcification of the thoracic aorta. The pulmonary vasculature is noncongested. There are small pleural effusions with bibasilar airspace opacities. No pneumothorax is seen. The skeletal structures are osteopenic. The bony thorax is grossly intact. IMPRESSION: 1. Cardiomegaly without radiographic evidence of congestive failure. 2. Small pleural effusions with bibasilar airspace opacities. This could represent atelectasis versus an infectious/inflammatory pneumonitis. Clinical correlation will be required. Electronically signed by: Jose Villarreal M.D. BILATERAL LOWER EXTREMITY VENOUS DOPPLER FINDINGS: There is normal compressibility, flow, and augmentation within the bilateral lower extremity deep venous systems. IMPRESSION: No DVT within the right or left lower extremity. Electronically signed by: Sandeep Del Valle M.D. Laboratory Results Test 02/28/17 12:20 02/28/17 13:05 Prothrombin Time 10.5 SECONDS (9.0-12.0) Prothromb Time International Ratio 1.0 (0.9-1.1) Activated Partial Thromboplast Time 23.8 SECONDS (21.0-31.0) Partial Thromboplastin Ratio 0.9 Total Bilirubin 0.2 mg/dl (0.2-1) Aspartate Amino Transf (AST/SGOT) 84 U/L (15-37) Alanine Aminotransferase (ALT/SGPT) 253 U/L (12-78) Alkaline Phosphatase 477 U/L (45-117) Total Protein 6.6 gm/dl (6.4-8.2) Albumin 3.5 gm/dl (3.4-5.0) Globulin 3.1 gm/dl (2.5-4.0) Albumin/Globulin Ratio 1.1 (0.9-2) Bedside Troponin I 0.490 ng/ml (0-0.045) Laboratory results per my review. Medications Administered Medications (Trade) Dose Ordered Sig/Kike Route Start Time Stop Time Status Last Admin Dose Admin Aspirin (Aspirin Chew) 324 mg NOW STAT PO 02/28/17 15:01 02/28/17 15:03 DC 02/28/17 15:50 324 MG Heparin Sodium (Porcine) (Heparin Iv Bolus) 4,000 unit NOW STAT IV 02/28/17 15:09 02/28/17 15:10 DC 02/28/17 15:42 4,000 UNIT Heparin Sodium/ Dextrose 500 ml @ 17 mls/hr Q24H PRN IV 02/28/17 15:15 02/28/17 17:11 DC 02/28/17 15:44 17 MLS/HR Sodium Chloride 1,000 ml @ 125 mls/hr Q8H STAT IV 02/28/17 15:13 02/28/17 18:21 DC 02/28/17 15:49 125 MLS/HR ECG Indication: SOB/dyspnea Rate (beats per minute): 76 Rhythm: normal sinus Findings: RBBB, other (LAD. Diffuse repolarization abnormality. Biphasic T- waves in the lateral leads. ) Comparison ECG Date: November 16, 2016 Change: T-wave amplitude has decreased in the lateral leads, otherwise no significant changes seen. Repeat ECG shows no change from initial ECG. ED Course 1231: Past medical records reviewed. The patient was evaluated in room C11B. A complete history and physical examination was performed. 1500: Upon reevaluation, the patient is resting comfortably. She informed me that she has been experiencing intermittent jaw pain in the evenings for the past month which she attributed to GERD. I discussed laboratory and radiographic results with her. She verbalized agreement of the treatment plan. I spoke with Marie CARRENO of the [facility] Hospitalist Service. The patient will be evaluated for further management and care. 1501: Ordered Aspirin Chew 324 mg PO. 1509: Ordered Heparin Bolus 4000 unit IV. 1513: Ordered Sodium Chloride 1000 ml @ 125 mls/hr IV Medical Decision Differential diagnosis: Etiologies such as infections, reactive airway disease, pneumonia, pneumothorax , COPD, CHF, cardiac ischemia, pulmonary embolism, musculoskeletal, gastrointestinal, as well as others were entertained. This patient was evaluated and appeared to be in no significant distress. Chest x-ray was obtained and is largely clear. Patient was given aspirin to chew. EKG reveals a right bundle-branch block and is largely abnormal however there is no significant change from previous and no evidence of acute ischemia. Ultrasound of bilateral lower extremities are negative for DVT. Laboratory work reveals an elevated troponin. Patient does have a history of CAD with CABG and is a diabetic smoker. She was placed on a heparin drip. She has no chest pain at this time but does now admit to intermittent pain in the jaw in the evenings. The patient was discussed with the hospitalist service who evaluated the patient for admission and further management. Consults Time Called: 0829 Consulting Physician: Marie CARRENO -Yoshi Returned Call: [phone] I reviewed the patient's case with Marie CARRENO. Yoshi will evaluate the patient for further management. Impression Primary Impression: Acute coronary syndrome Scribe Attestation The scribe's documentation has been prepared under my direction and personally reviewed by me in its entirety. I confirm that the note above accurately reflects all work, treatment, procedures, and medical decision making performed by me. Departure Information Dispostion Being Evaluated By Hospitalist Referrals Devon Biggs, Eusebio.O. (PCP) Patient Instructions My [facility]
[2017-02-28] MEDS ORDERED: GLUCAGON FOR INJ 1 MG VIAL SQ PRN (16:00)
[2017-02-28] MEDS ORDERED: LEVALBUTEROL/IPRATROPIUM NEB INH PRN (16:00)
[2017-02-28] MEDS ORDERED: DEXTROSE 50% 50 ML SYR IV PRN (16:00)
[2017-02-28] MEDS ORDERED: GLUCOSE 40% GEL 15 GM TUBE PO PRN (16:00)
[2017-02-28] MEDS ORDERED: LEVALBUTEROL/IPRATROPIUM NEB INH SCH (16:00)
[2017-02-28] MEDS ORDERED: GLUCOSE 10 TABS/TUBE PO PRN (16:00)
[2017-02-28] MEDS ORDERED: THY/120 PO (16:46)
--- NOTE | 2017-02-28 16:55 | Pharmacy Progress Note ---
Glycemic Control Intl Consult Date of Service Feb 28, 2017. Scope Glycemic Pharmacist consulted by Dr Love on 02/28/2017 for glycemic control and to write orders per [facility] inpatient glycemic control protocol Objective Weight (Kilograms): 85.300 Accuchecks BSG (last 24hrs): Test 02/28/17 12:20 Random Glucose 260 mg/dl (70-99) Laboratory Data (last 24hrs) Test 02/28/17 12:20 Anion Gap 8.0 mmol/L BUN/Creatinine Ratio 27.3 Blood Urea Nitrogen 66 mg/dl Creatinine 2.40 mg/dl Potassium Level 4.4 mmol/L Sodium Level 136 mmol/L White Blood Count 9.01 K/uL Recent Pertinent Medications Outpatient Anti-diabetic Regimen: * Levemir 16 units twice daily plus Novolog 1:15 carbohydrate ratio and CF of 70 for BSG > 130 mg/dL * A1c = 10 % 01/23/17 (in [facility] [address]) Risk Factors for Insulin Resistance: * Infection: PO doxycycline * Diet: type 1 DM Assessment & Plan ASSESSMENT: * ADA & AACE recommend a goal blood sugar range 140-180 mg/dl for the majority of critically ill & non-critically ill patients. However, more stringent targets may be selected in individual cases. Will utilize more stringent goal of 120-160mg/dl based on patient age & comorbidities. Additionally, tighter glycemic control is warranted to facilitate wound/infection healing. * Ms Zhang is a 52 y/o F who is known to the glycemic service. She is a type 1 diabetic who is poorly controlled. She is admitted currently for a CHF exacerbation. She is told she has a lung infection. She was previously taking Levemir 13 units in AM and 14 units in PM until 3 days ago when she increased her dose to 16 units twice daily. She took Levemir 16 units prior to admission. * Per previous data for the patient, it appears that she tolerated Levemir twice daily dosing (as high as 14 units twice daily) with carbohydrate ratios of 15 and correction factors as tight a2. I will be slightly more aggressive this admission as the patient has elevated blood sugars. I will also add overnight Accuchecks to ensure adequate blood sugar control. PLAN FOR INPATIENT GLYCEMIC CONTROL: * Basal insulin with LANTUS 16 units SQ BID * Correctional Insulin with NOVOLOG per scale ACHS * Goal Range: Low 120 mg/dL - High 160 mg/dL * Correction Factor: 30 mg/dL/unit * Nutritional / Prandial insulin per carb ratio of 1 unit per 12 grams CHO consumed * Please note that the plan above was derived based on current level of insulin resistance and hospital stress. These recommendations are appropriate for inpatient admission only. Plan of care upon discharge will need to be reassessed to avoid potential outpatient hypo/hyperglycemia. Thank you.
[2017-02-28] MEDS ORDERED: PHARMACY GLYCEMIC MGMT CONSULT PRN (16:59)
--- NOTE | 2017-02-28 17:04 | History and Physical ---
History & Physical Date & Time of Service: Feb 28, 2017 at 16:46 Chief Complaint: Chf Symptoms, Sob, Fluid Retention, Dehydration Primary Care Physician: Devon Biggs D.O. History of Present Illness Source: patient, family, clinic records, hospital records 52 year old female with history of CAD/CABG, Ischemic Cardiomyopathy, HTN, DM on Insulin, CKD 3, presenting with exertional dyspnea, leg swelling and cough x [address] Biggs for Primary Care, Dr. Castañeda for CAD, Dr. Valencia for CKD 3. Patient was at her usual state of health until last Saturday, when she presented to the Cardiology clinic for exertional dyspnea and bilateral leg swelling. She was given Lasix 60mg IV on that day, after which the patient had minimal relief. She returned to the Cardiology Clinic yesterday with similar symptoms and was given another dose of Lasix 60mg IV. It was also noted that her crea was increasing from 1.7 to 2.1 to 2.4 She was advised to proceed to the ER with no improvement She then went to the ER today for evaluation. CXR did not show signs of pulmonary vascular congestion, but did reveal possible bibasilar pneumonitis. Troponin mildly elevated at 0.49, EKG no signs of acute ischemia. On exam, patient seen sitting up in bed, comfortable, not in distress, on room air. Denies active chest pain, dyspnea at rest, palpitations, dizziness. Reports cough, occasionally productive x 1 week, still smokes. No other symptoms Past Medical/Surgical History Medical Problems: (1) ADD (attention deficit disorder) Status: Chronic (2) Anxiety Status: Chronic (3) CAD (coronary artery disease) Permanent Comment: s/p CABG Status: Chronic (4) CKD (chronic kidney disease) stage 3, GFR 30-59 ml/min Status: Chronic (5) Depression Permanent Comment: TMS therapy Status: Chronic (6) Diabetes mellitus type 1 Status: Chronic (7) Dyslipidemia Status: Chronic (8) GERD (gastroesophageal reflux disease) Status: Chronic (9) Glaucoma Status: Chronic (10) HTN (hypertension) Status: Chronic (11) Hypothyroidism Status: Chronic (12) Tobacco abuse Status: Chronic Surgical Problems: (1) H/O nasal septoplasty Status: Resolved (2) History of section Status: Resolved (3) S/P CABG x 2 Permanent Comment: Jason Mayo 12/2012 Status: Resolved Family History FH: CAD (coronary artery disease) FATHER ([place] at age 47, CABG x 4 ) Social History Smoking Status: Current Every Day Smoker Alcohol Use: none Immunizations History of Influenza Vaccine: Yes Influenza Vaccine Date: Jul 22, 2016 History of Tetanus Vaccine?: Yes Tetanus Immunization Date: Nov 17, 2010 History of Pneumococcal: Yes Pneumococcal Date: Nov 28, 2005 History of Hepatitis B Vaccine: Yes Hepatitis Immunization Date: Feb 24, 2003 Multi-Drug Resistant Organisms History of MDRO: No Allergies Coded Allergies: Penicillins (Verified Allergy, Intermediate, BLOTCHY SKIN/ ITCHY, 02/28/17) Vancomycin (Unverified Allergy, Intermediate, SHORTNESS OF BREATH, 02/28/17 ) Clopidogrel (Verified Allergy, Mild, rash, 02/28/17) rash due to Plavix or ertapenem Ertapenem (Verified Allergy, Mild, rash, 02/28/17) rash due to Plavix or ertapenem? Cephalosporins (Verified Allergy, Unknown, CECLOR-UNKNOWN, 02/28/17) Erythromycin (Unverified Allergy, Unknown, FROM H AND P-RASH, 02/28/17) Statins (Unverified Allergy, Unknown, MYALGIA, 02/28/17) Codeine (Verified Adverse Reaction, Unknown, VOMITING, 02/28/17) Nitrofurantoin (Unverified Adverse Reaction, Unknown, vomiting, 02/28/17) Pregabalin (Unverified Adverse Reaction, Unknown, VERY EMOTIONAL CRYING, ) Home Medications Scheduled Acetaminophen (Tylenol), 1,000 MG PO QID Amphetamine-Dextroamphetamine 10MG (Adderall 10MG), 10 MG PO BID Amphetamine-Dextroamphetamine 30MG (Adderall Xr 30MG), 30 MG PO BID Aspirin (Aspirin Ec), 162 MG PO HS Biotin (Biotin 5000), 5 MG PO QPM Bisacodyl (Bisacodyl EC), 15 MG PO HS Cholecalciferol (D-5000), 5,000 UNITS PO DAILY Cranberry (Vaccinium Macrocarp (Cranberry Extract), 500 MG PO QAM Insulin Aspart (Novolog), 1 UNIT SC AC Insulin Detemir (Levemir), 16 UNITS SC BID Linaclotide (Linzess), 145 MCG PO QAM Loratadine (Claritin), 10 MG PO QAM Lorazepam (Lorazepam), 1 MG PO HS Metoclopramide Hcl (Reglan), 10 MG PO QID Metoprolol Tartrate (Lopressor) (Lopressor), 25 MG PO BID Ondansetron (Ondansetron HCl), 8 MG PO TID Pantoprazole (Protonix), 40 MG PO BID Ranitidine (Zantac), 150 MG PO BID Thyroid ([place] Thyroid), 1 TAB PO DAILY Torsemide (Demadex), 20 MG PO DAILY Travoprost (Travatan Z), 1 DROPS OP HS Vortioxetine HBr (Trintellix), 30 MG PO QAM Scheduled PRN Olopatadine Hydrochloride (Pataday), 1 DROPS OPB DAILY PRN for prn Review of Systems Constitutional- no fever; no weight loss Eyes- no acute visual changes ENT- no sinus drainage; no pharyngitis Pulmonary- (+) as noted above Cardiac- (+) as noted above GI- no nausea, no vomiting, no diarrhea, no melena, no hematochezia - no dysuria, no hematuria Musculoskeletal- no arthralgias, no myalgias Derm- no rashes, no new skin lesions, no changing skin lesions Hematologic- no unusual bruising, no unusual bleeding Lymphatics- no adenopathy Endocrine- no polyuria or polydipsia; no heat or cold intolerance Neuro- no headaches, no focal neurologic symptoms Psych- no anxiety, no depression Physical Exam Vital Signs Date Time Temp Pulse Resp B/P (MAP) Pulse Ox O2 Delivery O2 Flow Rate FiO2 02/28/17 15:51 81 20 148/79 96 Room Air 02/28/17 14:24 75 20 126/65 95 Room Air 02/28/17 14:22 96 Room Air 02/28/17 12:14 76 20 127/65 95 Room Air 02/28/17 11:40 75 02/28/17 11:24 36.6 68 18 128/68 99 Room Air General Appearance: WD/WN, no apparent distress Head: normocephalic, atraumatic Eyes: normal inspection, EOMI, sclerae normal ENT: normal ENT inspection, hearing grossly normal, pharynx normal, + pertinent finding (dry oral mucosa) Neck: supple, no adenopathy, thyroid normal, no JVD, trachea midline Respiratory/Chest: chest non-tender, no respiratory distress, no accessory muscle use, + rales (mild rales biateral bases) Cardiovascular: regular rate, rhythm, no JVD, no murmur, + pertinent finding ( mild lower leg edema) Abdomen/GI: normal bowel sounds, non tender, soft, no organomegaly Back: normal inspection, no CVA tenderness Extremities/Musculoskelatal: no calf tenderness, no pedal edema (mild lower leg edema) Neurologic/Psych: concrete rod buster II-XII nml as tested, no motor/sensory deficits, alert, normal mood/affect, oriented x 3 Skin: normal color, warm/dry, no rash Lymphatic: no adenopathy Diagnostics Laboratory Results Results Past 24 Hours Test 02/28/17 12:20 02/28/17 13:05 Range/Units White Blood Count 9.01 4.8-10.8 K/uL Red Blood Count 3.53 4.2-5.4 M/uL Hemoglobin 10.2 12.0-16.0 g/dL Hematocrit 33.1 37-47 % Mean Corpuscular Volume 93.8 80-100 fL Mean Corpuscular Hemoglobin 28.9 25-34 pg Mean Corpuscular Hemoglobin Concent 30.8 32-36 g/dl RDW Standard Deviation 47.0 36.4-46.3 fL RDW Coefficient of Variation 14.2 11.5-14.5 % Platelet Count 294 130-400 K/uL Mean Platelet Volume 9.0 7.4-10.4 fL Prothrombin Time 10.5 9.0-12.0 SECONDS Prothromb Time International Ratio 1.0 0.9-1.1 Activated Partial Thromboplast Time 23.8 21.0-31.0 SECONDS Partial Thromboplastin Ratio 0.9 Sodium Level 136 136-145 mmol/L Potassium Level 4.4 3.5-5.1 mmol/L Chloride Level 105 98-107 mmol/L Carbon Dioxide Level 23 21-32 mmol/L Anion Gap 8.0 3-11 mmol/L Blood Urea Nitrogen 66 7-18 mg/dl Creatinine 2.40 0.60-1.20 mg/dl Est Creatinine Clear Calc Drug Dose 30.4 ml/min Estimated GFR () 25.8 Estimated GFR (Non- 22.3 BUN/Creatinine Ratio 27.3 10-20 Random Glucose 260 70-99 mg/dl Calcium Level 9.3 8.5-10.1 mg/dl Total Bilirubin 0.2 0.2-1 mg/dl Aspartate Amino Transf (AST/SGOT) 84 15-37 U/L Alanine Aminotransferase (ALT/SGPT) 253 12-78 U/L Alkaline Phosphatase 477 45-117 U/L Total Creatine Kinase 154 26-192 U/L Creatine Kinase MB 7.0 0.5-3.6 ng/ml Creatine Kinase MB Ratio 4.5 0-3.0 Total Protein 6.6 6.4-8.2 gm/dl Albumin 3.5 3.4-5.0 gm/dl Globulin 3.1 2.5-4.0 gm/dl Albumin/Globulin Ratio 1.1 0.9-2 Bedside Troponin I 0.490 0-0.045 ng/ml Diagnostic Radiology cxr IMPRESSION: 1. Cardiomegaly without radiographic evidence of congestive failure. 2. Small pleural effusions with bibasilar airspace opacities. This could represent atelectasis versus an infectious/inflammatory pneumonitis. Clinical correlation will be required. EKG HR 77, sinus rhythm, no signs of acute infarct Impression Assessment and Plan 52 year old female with history of CAD/CABG, Ischemic Cardiomyopathy, HTN, DM on Insulin, CKD 3, presenting with exertional dyspnea, leg swelling and cough x 1 week. EXERTIONAL DYSPNEA POSSIBLE MILD CHF EXACERBATION, BILATERAL BASILAR PNEUMONIA - patient comfortable, not in distress,on room air CXR no pulmonary vascular congestion crea increased from baseline 1.7 to 2.4 after receiving Lasix 60mg IV as outpatient this week hold lasix or usual torsemide for today monitor volume status closely may resume diuretics tomorrow when renal function improves - will start Nebs q6h and empiric Doxycycline PO - [employer] consulted MILD TROPONIN ELEVATION - no chest pain - ekg no signs of acute ischemia - trend cardiac markers update echo - already on Aspirin and Metoprolol ACUTE RENAL FAILURE ON CKD 3 - crea increased from baseline 1.7 to 2.4 after receiving Lasix 60mg IV as outpatient this week - hold diuretics for now - Dr. Valencia consulted DM 2 usually on Levemir 16 units BID decrease to Levemir 8 units BID with ISS for now until PO intake improves Pharmacy consulted HTN continue Metoprolol GASTROPARESIS continue Protonix, Ranitidine, Zofran, Reglan repeat EKG in AM to monitor QT FULL CODE per patient DVT prophylaxis Heparin SC Disposition lives at home ff up with Dr. Biggs for PCP, Dr. Castañeda for Cardio, Dr. Valencia for Nephro VTE Prophylaxis VTE Risk Assessment Done? Y/N: Yes Risk Level: Moderate Given or contraindicated: Unfractionated heparin SQ
[2017-02-28] MEDS ORDERED: ACETAMINOPHEN 325 MG TAB PO PRN (17:15)
[2017-02-28 17:30] VITALS: BP 128/76; PULSE 83; TEMP 36.8; O2SAT 93; Ht 170.2 cm; Wt 84.0 kg
[2017-02-28] MEDS: DOXYCYCLINE HYCLATE 100 MG CAP PO SCH (19:07)
[2017-02-28] MEDS: METOCLOPRAMIDE HCL 10 MG TAB PO SCH ×2 (19:08→21:09)
[2017-02-28] MEDS: INSULIN ASPART 100 UNITS/ML 3 ML PEN SC SCH ×2 (19:10→21:12)
[2017-02-28] MEDS: INSULIN DETEMIR FLEXPEN/FLEX TOUCH 100 UNITS/ML 3ML SC SCH (19:11)
[2017-02-28 19:18] VITALS: PULSE 85; O2SAT 92
[2017-02-28] MEDS: LEVALBUTEROL 1.25MG/0.5ML NEB INH SCH ×2 (19:18→23:50)
[2017-02-28] MEDS: IPRATROPIUM BROMIDE NEB SOLN 0.02% 2.5 ML VIAL INH SCH ×2 (19:18→23:50)
[2017-02-28 19:46] LABS: CKMB/CK RATIO 5.1 (0-3.0)
[2017-02-28 19:47] VITALS: BP 142/75; PULSE 92; TEMP 36.8; O2SAT 91
[2017-02-28 20:00] VITALS: O2SAT 92
[2017-02-28] MEDS ORDERED: AMPHETAMINE ASP/SULF/DEXTRAMPH 10 MG TAB PO SCH (21:00)
[2017-02-28] MEDS ORDERED: INSULIN DETEMIR FLEXPEN/FLEX TOUCH 100 UNITS/ML 3ML SC SCH (21:00)
[2017-02-28] MEDS: TRAVOPROST Z 0.004% OPH SOLN 2.5 ML BTL OP SCH (21:07)
[2017-02-28] MEDS: BISACODYL 5 MG TABEC PO SCH (21:08)
[2017-02-28] MEDS: PANTOprazole SOD 40 MG TAB PO SCH (21:09)
[2017-02-28] MEDS: METOPROLOL TARTRATE 25 MG TAB PO SCH (21:09)
[2017-02-28] MEDS: RANITIDINE HCL 150 MG TAB PO SCH (21:10)
[2017-02-28] MEDS: ONDANSETRON 8 MG TAB PO SCH (21:10)
[2017-02-28] MEDS: HEPARIN SOD 5000 UNIT/0.5 ML CARP SQ SCH (21:10)
[2017-02-28] MEDS: LORAZEPAM 1 MG TAB PO SCH (21:17)
[2017-02-28] MEDS ORDERED: NURSING DECISION MEDICATION ORDER SCH (21:30)
[2017-02-28 23:20] VITALS: BP 111/68; PULSE 90; TEMP 36.7; O2SAT 90
[2017-03-01] VITALS (8 sets, daily range): BP systolic 105–133; BP diastolic 66–78; PULSE 83–91; TEMP 36.8–37.1; O2SAT 90–98
[2017-03-01] MEDS ORDERED: LINZESS - ORDER AWAITING ACTION SCH
[2017-03-01] MEDS: INSULIN ASPART 100 UNITS/ML 3 ML PEN SC SCH ×6 (00:40→21:00)
[2017-03-01 01:53] LABS: CKMB/CK RATIO 4.1 (0-3.0)
[2017-03-01] MEDS ORDERED: INSULIN ASPART 100 UNITS/ML 3 ML PEN SC ONE (02:00)
[2017-03-01] MEDS: ARMOUR THYROID 120 MG PO SCH (05:48)
[2017-03-01] MEDS: HEPARIN SOD 5000 UNIT/0.5 ML CARP SQ SCH ×3 (05:50→21:01)
[2017-03-01 06:48] LABS: BASO % 0.3 %; BASO ABS # 0.03 K/uL (0-0.2); COMPLETE YES; EOS % 2.6 %; IG% 0.2 %; LYMPH % 28.8 %; MEAN CELL VOLUME 95.1 fL (80-100); MEAN CORPUSCULAR HEMOGLOBIN 29.8 pg (25-34); MEAN CORPUSCULAR HGB CONC 31.4 g/dl (32-36); MONO % 7.5 %; NEUT % 60.6 %; PLATELET COUNT 272 K/uL (130-400); RED BLOOD COUNT 3.05 M/uL (4.2-5.4); WHITE BLOOD COUNT 8.68 K/uL (4.8-10.8)
[2017-03-01] MEDS: IPRATROPIUM BROMIDE NEB SOLN 0.02% 2.5 ML VIAL INH SCH ×3 (07:12→19:20)
[2017-03-01] MEDS: LEVALBUTEROL 1.25MG/0.5ML NEB INH SCH ×3 (07:13→19:20)
[2017-03-01 07:28] LABS: BUN/CREATININE RATIO 28.3 (10-20); CREATININE 2.4 mg/dl (0.60-1.20)
[2017-03-01 07:38] LABS: CALCIUM 9.8 mg/dl (8.5-10.1)
[2017-03-01] MEDS: LINACLOTIDE 145 MCG CAP PO SCH (07:52)
[2017-03-01] MEDS: [UNRECOGNIZED DRUG - OTHER] SCH ×3 (07:52→14:53)
[2017-03-01] MEDS: AMPHETAMINE ASP/SULF/DEXTRAMPH 10 MG TAB PO SCH ×2 (08:02→12:33)
[2017-03-01] MEDS: ONDANSETRON 8 MG TAB PO SCH ×3 (08:03→20:46)
[2017-03-01] MEDS: LORATADINE 10 MG TAB PO SCH (08:03)
[2017-03-01] MEDS: METOCLOPRAMIDE HCL 10 MG TAB PO SCH ×4 (08:03→20:45)
[2017-03-01] MEDS: DOXYCYCLINE HYCLATE 100 MG CAP PO SCH ×2 (08:03→20:46)
[2017-03-01] MEDS: RANITIDINE HCL 150 MG TAB PO SCH ×2 (08:03→20:46)
[2017-03-01] MEDS: CHOLECALCIFEROL 1000 INTER.UNIT TAB PO SCH (08:04)
[2017-03-01] MEDS: VORTIOXETINE HBR 10 MG TAB PO SCH (08:04)
[2017-03-01] MEDS: METOPROLOL TARTRATE 25 MG TAB PO SCH ×2 (08:04→20:46)
[2017-03-01] MEDS: VORTIOXETINE HBR 20 MG PO SCH (08:05)
[2017-03-01] MEDS: PANTOprazole SOD 40 MG TAB PO SCH ×2 (08:06→20:46)
[2017-03-01] MEDS: INSULIN DETEMIR FLEXPEN/FLEX TOUCH 100 UNITS/ML 3ML SC SCH ×2 (08:14→17:05)
--- NOTE | 2017-03-01 09:32 | Nephrology Consultation ---
Nephrology Consultation Date of Consultation: Mar 01, 2017. Attending Physician: Dr. Mcadams Requesting Physician: Dr. Mcadams Reason for Consultation: viviana History of Present Illness Patient is a 52 year old female who follows with me in ckd clinic. pt with underlying ckd stage 3 with microalbuminuria from diabetes, hypertension, and tobacco abuse. continues to smoke about a pack a day. hx of type 1 diabetes for forty years with retinopathy, neuropathy, and gastroparesis. hx of ischemic cardiomyopathy with EF of 55% with hx of nstemi, bypass surgery in 2012. 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 Does not tolerate MEENA or ARB. pt noticed she was having more swelling for the past couple of weeks and increased her torsemide from once a day to twice a day. pt saw Dr. Castañeda at outpt clinic and was given iv lasix on saturday and saturday and pt continues to feel bloated and creatinine trended up from 1.7 to 2.1 to 2.4. pts diuretics were held yesterday and was not given fluid either and creatinine remains 2.4 this morning. pt oob to chair, not requiring oxygen, not sob. pt states she has some mild swelling in her legs and still feels bloated. moving bowels well. appetite is good. Past Medical/Surgical History Medical Problems: (1) Acute coronary syndrome Status: Acute (2) Elevated d-dimer Status: Acute (3) History of CHF (congestive heart failure) Status: Acute (4) History of coronary artery disease Status: Acute (5) SOB (shortness of breath) Status: Acute Anxiety CAD with hx of bypass ckd stage 3 with baseline creatinine 1.5 to 1.7 type 1 diabetes with retinopathy, neuropathy, gastroparesis htn hypothyroidism active tobacco abuse hyperlipidemia GERD Family History FH: CAD (coronary artery disease) FATHER ([place] at age 47, CABG x 4 ) Social History Smoking Status: Current Every Day Smoker Alcohol Use: none Housing Status: lives with family Allergies Coded Allergies: Penicillins (Verified Allergy, Intermediate, BLOTCHY SKIN/ ITCHY, 02/28/17) Vancomycin (Unverified Allergy, Intermediate, SHORTNESS OF BREATH, 02/28/17 ) Clopidogrel (Verified Allergy, Mild, rash, 02/28/17) rash due to Plavix or ertapenem Ertapenem (Verified Allergy, Mild, rash, 02/28/17) rash due to Plavix or ertapenem? Cephalosporins (Verified Allergy, Unknown, CECLOR-UNKNOWN, 02/28/17) Erythromycin (Unverified Allergy, Unknown, FROM H AND P-RASH, 02/28/17) Statins (Unverified Allergy, Unknown, MYALGIA, 02/28/17) Codeine (Verified Adverse Reaction, Unknown, VOMITING, 02/28/17) Nitrofurantoin (Unverified Adverse Reaction, Unknown, vomiting, 02/28/17) Pregabalin (Unverified Adverse Reaction, Unknown, VERY EMOTIONAL CRYING, ) Medications Current Inpatient Medications Medications (Trade) Dose Ordered Sig/Kike Route Start Time Stop Time Status Last Admin Dose Admin Doxycycline Hyclate (Vibramycin Cap) 100 mg BID PO 02/28/17 18:00 03/07/17 17:59 03/01/17 08:03 100 MG Insulin Aspart (novoLOG ASPART) SLIDING SCALE If C... ACHS SC 02/28/17 16:00 03/30/17 15:59 03/01/17 07:00 2 UNITS Glucose (Glucose 40% Gel) 15-30 GRAMS 15 GRAMS... UD PRN PO 02/28/17 16:00 03/30/17 15:59 Glucose (Glucose Chew Tab) 4-8 Tablets 4 Tabl... UD PRN PO 02/28/17 16:00 03/30/17 15:59 Dextrose (Dextrose 50% 50ML Syringe) 25-50ML OF 50% DW IV FOR... UD PRN IV 02/28/17 16:00 03/30/17 15:59 Glucagon (Glucagon Inj) 1 mg UD PRN SQ 02/28/17 16:00 03/30/17 15:59 Miscellaneous Information (Consult Glycemic Management Pharmacy) 1 ea UD PRN N/A 02/28/17 16:59 03/30/17 16:58 Aspirin (Ecotrin Tab) 162 mg HS PO 03/01/17 21:00 03/31/17 20:59 Bisacodyl (Dulcolax Tab) 15 mg HS PO 02/28/17 21:00 03/30/17 20:59 02/28/17 21:08 15 MG Lorazepam (Ativan Tab) 1 mg HS PO 02/28/17 21:00 03/30/17 20:59 02/28/17 21:17 1 MG Metoclopramide HCl (Reglan Tab) 10 mg QID PO 02/28/17 17:00 03/30/17 16:59 03/01/17 08:03 10 MG Metoprolol Tartrate (Lopressor Tab) 25 mg BID PO 02/28/17 21:00 03/30/17 20:59 03/01/17 08:04 25 MG Ondansetron HCl (Zofran Tab) 8 mg TID PO 02/28/17 21:00 03/30/17 20:59 03/01/17 08:03 8 MG Pantoprazole Sodium (Protonix Tab) 40 mg BID PO 02/28/17 21:00 03/30/17 20:59 03/01/17 08:06 40 MG Ranitidine HCl (zANTac TAB) 150 mg BID PO 02/28/17 21:00 03/30/17 20:59 03/01/17 08:03 150 MG Travoprost (Travatan Z) 1 drops HS OP 02/28/17 21:00 03/30/17 20:59 02/28/17 21:07 1 DROPS Miscellaneous Information (Order Awaiting Action) 1 ea QS N/A 03/01/17 00:00 03/31/17 00:00 Cholecalciferol (Vitamin D Tab) 5,000 inter.unit DAILY PO 03/01/17 09:00 03/31/17 08:59 03/01/17 08:04 5,000 INTER.UNIT Miscellaneous Information (Order Awaiting Action) 1 ea QS N/A 03/01/17 00:00 03/31/17 00:00 Ipratropium [place] (Atrovent 0.02% 0.5MG/2.5ML Neb) 0.5 mg Q6R INH 02/28/17 21:00 03/30/17 20:59 03/01/17 07:12 0.5 MG Levalbuterol (Xopenex 1.25MG/ 0.5ML Neb) 1.25 mg Q6R INH 02/28/17 21:00 03/30/17 20:59 03/01/17 07:13 1.25 MG Loratadine (Claritin Tab) 10 mg QAM PO 03/01/17 09:00 03/31/17 08:59 03/01/17 08:03 10 MG Heparin Sodium (Porcine) (Heparin Sq 5000 Unit/0.5ml) 5,000 unit Q8 SQ 02/28/17 22:00 03/30/17 21:59 03/01/17 05:50 5,000 UNIT Acetaminophen (Tylenol Tab) 650 mg Q4H PRN PO 02/28/17 17:15 03/30/17 17:14 Insulin Detemir (Levemir Flexpen/ FlexTouch) 16 unit BIDM SC 02/28/17 17:38 03/30/17 17:59 03/01/17 08:14 16 UNIT Linaclotide (Linzess) 145 mcg QAM PO 03/01/17 09:00 03/31/17 08:59 Vortioxetine (Trintellix) 20 mg QAM PO 03/01/17 09:00 03/31/17 08:59 03/01/17 08:05 20 MG Vortioxetine (Trintellix) 10 mg QAM PO 03/01/17 09:00 03/31/17 08:59 03/01/17 08:04 10 MG Non-Formulary Medication (Non-Formulary Patient'S Own Med) 1 ea DAILYBB PO 03/01/17 06:00 03/31/17 05:59 03/01/17 05:48 1 EA Amphetamine Aspartate/ Amphetam Sulf (Amphetamine Aspartate/Amph Sulf/Dextramphet) 10 mg BID@0800,1200 PO 03/01/17 08:00 03/15/17 07:59 03/01/17 08:02 10 MG Albumin Human (Albumin 25%) 12.5 gm BID IV 03/01/17 09:15 03/04/17 09:14 UNV Home Meds and Scripts Medications Dose Route/Sig Max Daily Dose Days Date Category Dose Instructions [place] Thyroid (Thyroid) 120 Mg Tab 1 Tab PO DAILY 02/28/17 Reported Demadex (Torsemide) 20 Mg Tab 20 Mg PO DAILY 02/28/17 Reported Lopressor (Metoprolol Tartrate) 25 Mg Tab 25 Mg PO BID 11/16/16 Reported D-5000 (Cholecalciferol) 5,000 Unit Tab 5,000 Units PO DAILY 30 11/16/16 Reported Levemir (Insulin Detemir) 100 Units/Ml Inj 16 Units SC BID 11/16/16 Reported Ondansetron HCl (Ondansetron) 8 Mg Tab 8 Mg PO TID 11/16/16 Reported Travatan Z (Travoprost) 0.004 % [place] 1 Drops OP HS 11/16/16 Reported Bisacodyl EC (Bisacodyl) 5 Mg Tabec 15 Mg PO HS 11/16/16 Reported Lorazepam 1 Mg Tab 1 Mg PO HS 11/16/16 Reported Novolog (Insulin Aspart) 100 Units/Ml Inj 1 Unit SC AC 11/16/16 Reported per sliding scale, 1:15 for carbs coverage, max 15 units; also uses correction factor 70mg/dL/unit for elevatations above 130 Cranberry Extract (Cranberry (Vaccinium Macrocarp) 250 Mg Tab 500 Mg PO QAM 11/05/16 Reported Tylenol (Acetaminophen) 500 Mg Tab 1,000 Mg PO QID 04/09/16 Reported Trintellix (Vortioxetine HBr) 20 Mg Tab 30 Mg PO QAM 04/09/16 Reported Aspirin Ec (Aspirin) 81 Mg Tab 162 Mg PO HS 11/07/15 Reported Biotin 5000 (Biotin) 5 Mg Cap 5 Mg PO QPM 11/07/15 Reported Claritin (Loratadine) 10 Mg Tab 10 Mg PO QAM 11/07/15 Reported Adderall 10MG (Amphetamine-Dextroamphetamine 10MG) 1 Tab Tab 10 Mg PO BID 09/09/15 Reported Pataday (Olopatadine Hydrochloride) 37 Drops/2.5 Ml Soln 1 Drops OPB DAILY PRN 09/09/15 Reported Adderall Xr 30MG (Amphetamine-Dextroamphetamine 30MG) 1 Cap Cap 30 Mg PO BID 01/17/15 Reported Zantac (Ranitidine HCl) 150 Mg Tab 150 Mg PO BID 01/17/15 Reported Linzess (Linaclotide) 145 Mcg Cap 145 Mcg PO QAM 01/17/15 Reported Reglan (Metoclopramide Hcl) 10 Mg Tab 10 Mg PO QID 01/16/13 Reported Protonix (Pantoprazole Sodium) 40 Mg Tab 40 Mg PO BID 07/29/11 Reported Review of Systems Constitutional: + fatigue Respiratory: + shortness of breath Cardiac: + edema, No chest pain Abdomen: No nausea, No vomiting Female : No dysuria Psych: + anxiety Heme: No night sweats all other review of systems otherwise negative Physical Exam Date Time Temp Pulse Resp B/P (MAP) Pulse Ox O2 Delivery O2 Flow Rate FiO2 03/01/17 08:26 36.9 89 22 105/68 (80) 92 Nasal Cannula 6.0 03/01/17 08:05 Room Air 03/01/17 07:50 37.1 85 15 111/68 (82) 91 Room Air 03/01/17 07:41 85 16 95 Room Air 03/01/17 04:11 36.8 86 20 132/78 (96) 91 Room Air 03/01/17 04:00 Room Air 03/01/17 00:00 Room Air 02/28/17 23:20 36.7 90 22 111/68 (82) 90 Room Air 02/28/17 20:00 92 Room Air 02/28/17 19:47 36.8 92 20 142/75 (97) 91 Room Air 02/28/17 19:18 85 18 92 Room Air 02/28/17 17:40 67 20 128/76 98 02/28/17 17:30 36.8 83 16 128/76 93 Room Air 02/28/17 15:51 81 20 148/79 96 Room Air 02/28/17 14:24 75 20 126/65 95 Room Air 02/28/17 14:22 96 Room Air 02/28/17 12:14 76 20 127/65 95 Room Air 02/28/17 11:40 75 02/28/17 11:24 36.6 68 18 128/68 99 Room Air General Appearance: no apparent distress Eyes: normal inspection ENT: normal ENT inspection Neck: supple Respiratory/Chest: lungs clear Cardiovascular: regular rate, rhythm Abdomen: normal bowel sounds, non tender, soft Extremities: no pedal edema Neurologic/Psych: + pertinent finding (+neuropathy) Skin: normal color, no jaundice, warm/dry, no rash Diagnostics Last 24 Hours Test 02/28/17 12:20 02/28/17 13:05 02/28/17 17:10 02/28/17 19:01 White Blood Count 9.01 K/uL Red Blood Count 3.53 M/uL Hemoglobin 10.2 g/dL Hematocrit 33.1 % Mean Corpuscular Volume 93.8 fL Mean Corpuscular Hemoglobin 28.9 pg Mean Corpuscular Hemoglobin Concent 30.8 g/dl RDW Standard Deviation 47.0 fL RDW Coefficient of Variation 14.2 % Platelet Count 294 K/uL Mean Platelet Volume 9.0 fL Prothrombin Time 10.5 SECONDS Prothromb Time International Ratio 1.0 Activated Partial Thromboplast Time 23.8 SECONDS Partial Thromboplastin Ratio 0.9 Sodium Level 136 mmol/L Potassium Level 4.4 mmol/L Chloride Level 105 mmol/L Carbon Dioxide Level 23 mmol/L Anion Gap 8.0 mmol/L Blood Urea Nitrogen 66 mg/dl Creatinine 2.40 mg/dl Est Creatinine Clear Calc Drug Dose 30.4 ml/min Estimated GFR () 25.8 Estimated GFR (Non- 22.3 BUN/Creatinine Ratio 27.3 Random Glucose 260 mg/dl Calcium Level 9.3 mg/dl Total Bilirubin 0.2 mg/dl Aspartate Amino Transf (AST/SGOT) 84 U/L Alanine Aminotransferase (ALT/SGPT) 253 U/L Alkaline Phosphatase 477 U/L Total Creatine Kinase 154 U/L 106 U/L Creatine Kinase MB 7.0 ng/ml 5.4 ng/ml Creatine Kinase MB Ratio 4.5 5.1 Total Protein 6.6 gm/dl Albumin 3.5 gm/dl Globulin 3.1 gm/dl Albumin/Globulin Ratio 1.1 Bedside Troponin I 0.490 ng/ml Bedside Glucose 265 mg/dl Troponin I 0.476 ng/ml Test 02/28/17 21:08 03/01/17 00:05 03/01/17 01:04 03/01/17 03:54 Bedside Glucose 303 mg/dl 192 mg/dl 140 mg/dl Total Creatine Kinase 102 U/L Creatine Kinase MB 4.2 ng/ml Creatine Kinase MB Ratio 4.1 Troponin I 0.420 ng/ml Test 03/01/17 06:37 03/01/17 06:47 White Blood Count 8.68 K/uL Red Blood Count 3.05 M/uL Hemoglobin 9.1 g/dL Hematocrit 29.0 % Mean Corpuscular Volume 95.1 fL Mean Corpuscular Hemoglobin 29.8 pg Mean Corpuscular Hemoglobin Concent 31.4 g/dl Platelet Count 272 K/uL Mean Platelet Volume 9.0 fL Neutrophils (%) (Auto) 60.6 % Lymphocytes (%) (Auto) 28.8 % Monocytes (%) (Auto) 7.5 % Eosinophils (%) (Auto) 2.6 % Basophils (%) (Auto) 0.3 % Neutrophils # (Auto) 5.25 K/uL Lymphocytes # (Auto) 2.50 K/uL Monocytes # (Auto) 0.65 K/uL Eosinophils # (Auto) 0.23 K/uL Basophils # (Auto) 0.03 K/uL RDW Standard Deviation 48.3 fL RDW Coefficient of Variation 14.4 % Immature Granulocyte % (Auto) 0.2 % Immature Granulocyte # (Auto) 0.02 K/uL Sodium Level 141 mmol/L Potassium Level 5.0 mmol/L Chloride Level 110 mmol/L Carbon Dioxide Level 25 mmol/L Anion Gap 6.0 mmol/L Blood Urea Nitrogen 68 mg/dl Creatinine 2.40 mg/dl Est Creatinine Clear Calc Drug Dose 30.7 ml/min Estimated GFR () 25.8 Estimated GFR (Non- 22.3 BUN/Creatinine Ratio 28.3 Random Glucose 120 mg/dl Calcium Level 9.8 mg/dl Bedside Glucose 131 mg/dl Assessment & Plan viviana on ckd stage 3 in the setting of appropriate diuresis. diuretics currently on hold. no signs of volume overload on my clinical exam and not requiring oxygen. would like to give albumin 12.5grams iv bid to help mobilize any third spaced fluid since pt feels bloated-hesitant to give iv fluids. if creatinine trending down tomorrow, would send home on once daily torsemide and recheck bmp again on saturday. Anemia-hg levels are trending down. would like to check iron screen and ferritin tomorrow to see if she needs any iv iron. does not appear to be actively bleeding. Troponin elevation-defer to cardiology and greatly appreciate their help in this complicated patient.
[2017-03-01] MEDS ORDERED: ALBUMIN HUMAN 25% 12.5 GM/50 ML VIAL IV SCH (10:00)
[2017-03-01] MEDS: ALBUMIN 25% 50 ML with FUROSEMIDE INJ 40 MG IV SCH ×4 (10:39→21:02)
--- NOTE | 2017-03-01 10:44 | Cardiology Consultation ---
Cardiology Consultation Date of Consultation: Mar 01, 2017 Requesting Physician: Ivan Attending Historical Records Administrator: Benny (Sandeep Self PA-C) History of Present Illness Mrs. Zhang is a complex 52 year old female who is being seen at the request of Dr. Love. Reason for consultation is CHF exacerbation. Laboratory work in December 2016 revealed worsening renal function for which Torsemide was decreased from 20 mg/day to 20 mg one day alternating with 10 mg the next day. Mrs. Zhang notes "I filled up with fluid." She describes an 8 pound weight gain in four days, abdominal bloating, increased thigh girth, nonproductive cough, orthopnea, and mild lower extremity peripheral edema. She states that she doubled Torsemide x 4 days without improvement. She then called Dr. Castañeda 's Office and was seen on 02/25/2017 at which time she was given 60 mg IV Furosemide. She took two Torsemide on Saturday and was seen again by Dr. Castañeda on Saturday where she received another 60 mg IV furosemide. morning her issues were not improved so she presented to the ER as advised. In the ER she was evaluated by Dr. Clementine Barnhart M.D. EKG revealed normal sinus rhythm with left axis deviation, right bundle branch block. Diffuse ST-T wave abnormality observed. When compared to the prior available EKG nonspecific T wave abnormality has replaced inverted T waves in anterior leads. Troponin elevated. Chest x-ray revealed cardiomegaly without radiographic evidence of congestive failure; there were small pleural effusions with bibasilar airspace opacities as per Dr. Villarreal. There was no DVT within the right or left lower extremity as per Dr. Eligio M.D. In the ER she was given ASA, IV heparin bolus , and IVF's. Diuretics were held. Her last dose of oral Torsemide was Saturday night. She was started on nebulizer treatments and empiric oral doxycycline due to the chest x-ray findings. She denies chest pain. No new or worsening palpitations. Stable exertional dyspnea. No PND. No lightheadedness, dizziness, near syncope, or syncope. She denies fevers, chills, or night sweats. She has been under a lot of social stress. Her mother has become progressively and is now a resident of [facility]. She recently took Cipro for a UTI. Other recent medication changes included switching thyroid medications and the addition of Magnesium Citrate. (Sandeep Self PA-C) History Past Medical/Surgical History: Type I diabetes mellitus with triopathy, gastroparesis Peripheral vascular disease History of diabetic foot ulcer with osteomyelitis Status post PTCA of the right popliteal artery Status post excision of the right 5th metatarsal and debridement of the lateral malleolus with culture positive for strep and coag neg staph Ischemic cardiomyopathy with past LVEF of 45%. October 22, 2012 catheterization revealing 2 vessel CAD of the LAD and Circ. Specific angiography was right dominant. The RCA was a medium caliber vessel with moderate disease including a 30% mid RCA lesion. The LM was mildly diseased. The LAD was severely diseased including a 50% proximal LAD lesion, 80 % mid LAD lesion, 90% distal LAD lesion, and a 50% D1 lesion. The LCX was nondominant and severely diseased with an 80% OM1 lesion, 99% OM2 lesion, and an 80% mid LCX lesion, LVEDP elevated Status post 01/05/2013 CABG with a SINHA to the proximal LAD, free KARO from the SINHA to the OM, and distal LAD endarterectomy with patch angioplasty. Chronic renal insufficiency Chronic tobacco abuse Hypertension Dyslipidemia. GERD. Gastritis Hypothyroidism Depression. Panic disorder. Bipolar. ADHA Chronic sinusitis Glaucoma Bilateral cataracts delivery Repair of nasal septum Sinus surgery Removal endometrial tag Right breast biopsy, benign Colonoscopy with polypectomy Family History: Notable for premature CAD in her father. Paternal grandfather with a CVA. Social History: Smoker, currently 3/4 ppd. No significant alcohol. No illegal drug use. . 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 (Sandeep Self PA-C) Past Medical/Surgical History Problem List: Medical Problems: (1) ADD (attention deficit disorder) (2) Anxiety (3) CAD (coronary artery disease) (4) CHF exacerbation (5) CKD (chronic kidney disease) stage 3, GFR 30-59 ml/min (6) Depression (7) Diabetes mellitus type 1 (8) Dyslipidemia (9) GERD (gastroesophageal reflux disease) (10) Glaucoma (11) HTN (hypertension) (12) Hypothyroidism (13) Shortness of breath (14) Tobacco abuse Surgical Problems: (1) H/O nasal septoplasty (2) History of section (3) S/P CABG x 2 (Sandeep Self PA-C) Review Of Systems General: 8 lb weight gain. No fever. No rigors. No night sweats. HEENT: No head trauma. Cardiovascular: No pain or chest discomfort. Stable dyspnea on exertion. No tachypalpitations. No near syncope or syncope. Pulmonary: Ongoing tobacco abuse. No hemoptysis. Gastrointestinal: See above. Skin: No rash. Musculoskeletal: Arthritis. See above. Neurological: No history of TIA, CVA, or seizures. Psych: Depressed. Complete Review of Systems is as stated above, negative, or noncontributory. (Sandeep Self PA-C) Allergies Coded Allergies: Penicillins (Verified Allergy, Intermediate, BLOTCHY SKIN/ ITCHY, 02/28/17) Vancomycin (Unverified Allergy, Intermediate, SHORTNESS OF BREATH, 02/28/17 ) Clopidogrel (Verified Allergy, Mild, rash, 02/28/17) rash due to Plavix or ertapenem Ertapenem (Verified Allergy, Mild, rash, 02/28/17) rash due to Plavix or ertapenem? Cephalosporins (Verified Allergy, Unknown, CECLOR-UNKNOWN, 02/28/17) Erythromycin (Unverified Allergy, Unknown, FROM H AND P-RASH, 02/28/17) Statins (Unverified Allergy, Unknown, MYALGIA, 02/28/17) Codeine (Verified Adverse Reaction, Unknown, VOMITING, 02/28/17) Nitrofurantoin (Unverified Adverse Reaction, Unknown, vomiting, 02/28/17) Pregabalin (Unverified Adverse Reaction, Unknown, VERY EMOTIONAL CRYING, ) Medications Reported Home Medications Medications Dose Route/Sig Max Daily Dose Days Date Category Dose Instructions [place] Thyroid (Thyroid) 120 Mg Tab 1 Tab PO DAILY 02/28/17 Reported Demadex (Torsemide) 20 Mg Tab 20 Mg PO DAILY 02/28/17 Reported Lopressor (Metoprolol Tartrate) 25 Mg Tab 25 Mg PO BID 11/16/16 Reported D-5000 (Cholecalciferol) 5,000 Unit Tab 5,000 Units PO DAILY 30 11/16/16 Reported Levemir (Insulin Detemir) 100 Units/Ml Inj 16 Units SC BID 11/16/16 Reported Ondansetron HCl (Ondansetron) 8 Mg Tab 8 Mg PO TID 11/16/16 Reported Travatan Z (Travoprost) 0.004 % Rodney 1 Drops OP HS 11/16/16 Reported Bisacodyl EC (Bisacodyl) 5 Mg Tabec 15 Mg PO HS 11/16/16 Reported Lorazepam 1 Mg Tab 1 Mg PO HS 11/16/16 Reported Novolog (Insulin Aspart) 100 Units/Ml Inj 1 Unit SC AC 11/16/16 Reported per sliding scale, 1:15 for carbs coverage, max 15 units; also uses correction factor 70mg/dL/unit for elevatations above 130 Cranberry Extract (Cranberry (Vaccinium Macrocarp) 250 Mg Tab 500 Mg PO QAM 11/05/16 Reported Tylenol (Acetaminophen) 500 Mg Tab 1,000 Mg PO QID 04/09/16 Reported Trintellix (Vortioxetine HBr) 20 Mg Tab 30 Mg PO QAM 04/09/16 Reported Aspirin Ec (Aspirin) 81 Mg Tab 162 Mg PO HS 11/07/15 Reported Biotin 5000 (Biotin) 5 Mg Cap 5 Mg PO QPM 11/07/15 Reported Claritin (Loratadine) 10 Mg Tab 10 Mg PO QAM 11/07/15 Reported Adderall 10MG (Amphetamine-Dextroamphetamine 10MG) 1 Tab Tab 10 Mg PO BID 09/09/15 Reported Pataday (Olopatadine Hydrochloride) 37 Drops/2.5 Ml Soln 1 Drops OPB DAILY PRN 09/09/15 Reported Adderall Xr 30MG (Amphetamine-Dextroamphetamine 30MG) 1 Cap Cap 30 Mg PO BID 01/17/15 Reported Zantac (Ranitidine HCl) 150 Mg Tab 150 Mg PO BID 01/17/15 Reported Linzess (Linaclotide) 145 Mcg Cap 145 Mcg PO QAM 01/17/15 Reported Reglan (Metoclopramide Hcl) 10 Mg Tab 10 Mg PO QID 01/16/13 Reported Protonix (Pantoprazole Sodium) 40 Mg Tab 40 Mg PO BID 07/29/11 Reported (Sandeep Self PA-C) Physical Exam Vital Signs (Last 8hrs): Last 8 Hrs Date Time Temp Pulse Resp B/P (MAP) Pulse Ox O2 Delivery O2 Flow Rate FiO2 03/01/17 08:26 36.9 89 22 105/68 (80) 92 Nasal Cannula 6.0 03/01/17 08:05 Room Air 03/01/17 07:50 37.1 85 15 111/68 (82) 91 Room Air 03/01/17 07:41 85 16 95 Room Air 03/01/17 04:11 36.8 86 20 132/78 (96) 91 Room Air 03/01/17 04:00 Room Air General Appearance: Alert and Oriented x3. NAD. Head: Normocephalic Atraumatic. Eyes: PER, EOMI, conjunctiva and sclera clear Neck: Supple. Bilateral carotid bruits. No overt JVD. Respiratory: Decreased at the bases with faint left basilar rales. No wheezes. No rhonchi. Cardiovascular: RRR, 90 bpm. Soft systolic murmur at the lower left sternal border. No rub. Abdomen: +BS. Somewhat firm. Distended. ? Hepatomegaly. No overt fluid wave. Extremities: Mild edema. No clubbing. No cyanosis. Distal pulses 1/4 bilaterally , previously not appreciated. Neuro: No focal deficits. Psychiatric: Flat affect. (Sandeep Self, JACC) Data Last 24 Hours Test 02/28/17 12:20 02/28/17 13:05 02/28/17 17:10 02/28/17 19:01 White Blood Count 9.01 K/uL Red Blood Count 3.53 M/uL Hemoglobin 10.2 g/dL Hematocrit 33.1 % Mean Corpuscular Volume 93.8 fL Mean Corpuscular Hemoglobin 28.9 pg Mean Corpuscular Hemoglobin Concent 30.8 g/dl RDW Standard Deviation 47.0 fL RDW Coefficient of Variation 14.2 % Platelet Count 294 K/uL Mean Platelet Volume 9.0 fL Prothrombin Time 10.5 SECONDS Prothromb Time International Ratio 1.0 Activated Partial Thromboplast Time 23.8 SECONDS Partial Thromboplastin Ratio 0.9 Sodium Level 136 mmol/L Potassium Level 4.4 mmol/L Chloride Level 105 mmol/L Carbon Dioxide Level 23 mmol/L Anion Gap 8.0 mmol/L Blood Urea Nitrogen 66 mg/dl Creatinine 2.40 mg/dl Est Creatinine Clear Calc Drug Dose 30.4 ml/min Estimated GFR () 25.8 Estimated GFR (Non- 22.3 BUN/Creatinine Ratio 27.3 Random Glucose 260 mg/dl Calcium Level 9.3 mg/dl Total Bilirubin 0.2 mg/dl Aspartate Amino Transf (AST/SGOT) 84 U/L Alanine Aminotransferase (ALT/SGPT) 253 U/L Alkaline Phosphatase 477 U/L Total Creatine Kinase 154 U/L 106 U/L Creatine Kinase MB 7.0 ng/ml 5.4 ng/ml Creatine Kinase MB Ratio 4.5 5.1 Total Protein 6.6 gm/dl Albumin 3.5 gm/dl Globulin 3.1 gm/dl Albumin/Globulin Ratio 1.1 Bedside Troponin I 0.490 ng/ml Bedside Glucose 265 mg/dl Troponin I 0.476 ng/ml Test 02/28/17 21:08 03/01/17 00:05 03/01/17 01:04 03/01/17 03:54 Bedside Glucose 303 mg/dl 192 mg/dl 140 mg/dl Total Creatine Kinase 102 U/L Creatine Kinase MB 4.2 ng/ml Creatine Kinase MB Ratio 4.1 Troponin I 0.420 ng/ml Test 03/01/17 06:37 03/01/17 06:47 White Blood Count 8.68 K/uL Red Blood Count 3.05 M/uL Hemoglobin 9.1 g/dL Hematocrit 29.0 % Mean Corpuscular Volume 95.1 fL Mean Corpuscular Hemoglobin 29.8 pg Mean Corpuscular Hemoglobin Concent 31.4 g/dl Platelet Count 272 K/uL Mean Platelet Volume 9.0 fL Neutrophils (%) (Auto) 60.6 % Lymphocytes (%) (Auto) 28.8 % Monocytes (%) (Auto) 7.5 % Eosinophils (%) (Auto) 2.6 % Basophils (%) (Auto) 0.3 % Neutrophils # (Auto) 5.25 K/uL Lymphocytes # (Auto) 2.50 K/uL Monocytes # (Auto) 0.65 K/uL Eosinophils # (Auto) 0.23 K/uL Basophils # (Auto) 0.03 K/uL RDW Standard Deviation 48.3 fL RDW Coefficient of Variation 14.4 % Immature Granulocyte % (Auto) 0.2 % Immature Granulocyte # (Auto) 0.02 K/uL Sodium Level 141 mmol/L Potassium Level 5.0 mmol/L Chloride Level 110 mmol/L Carbon Dioxide Level 25 mmol/L Anion Gap 6.0 mmol/L Blood Urea Nitrogen 68 mg/dl Creatinine 2.40 mg/dl Est Creatinine Clear Calc Drug Dose 30.7 ml/min Estimated GFR () 25.8 Estimated GFR (Non- 22.3 BUN/Creatinine Ratio 28.3 Random Glucose 120 mg/dl Calcium Level 9.8 mg/dl Bedside Glucose 131 mg/dl Imaging: See above. EKG: See above. Telemetry reviewed: Sinus at 94 bpm. No atrial or ventricular arrhythmias observed thus far. (Sandeep Self PA-C) Assessment & Plan Acute decompensated diastolic congestive heart failure signs and symptoms History of ischemic cardiomyopathy status post CABG. EF normalized via last TTE. ? recurrent systolic dysfunction. Acute on chronic renal dysfunction Elevated Troponin, in the absence of symptoms, felt to be secondary to demand ischemia in the setting of acute decompensated heart failure, acute renal dysfunction, left ventricular hypertrophy. Abnormal LFT's. ? Hepatic congestion Type I diabetic with triopathy, gastroparesis, and peripheral vascular disease with prior diabetic foot ulcers and osteomyelitis Chronic tobacco abuse Hypertension Dyslipidemia. GERD. Gastritis Hypothyroidism Depression. Panic disorder. Bipolar. ADHA RECOMMENDATIONS/PLAN: Resting echocardiography to reassess LV systolic function Hold oral diuretics. IV furosemide, 40 mg BID. Follow renal function, LFT's, and electrolytes daily. Continue metoprolol. Patient unable to tolerate Hydralazine, Imdur (fatigue), ACEI/ARB (hyperkalemia) , or statin. Tobacco cessation advised (no desire to quit). She remains on Adderall against cardiac advise. (Sandeep Self PA-C) Cardiology attending: Pt seen and examined, agree with findings and assessment as per Sandeep Finch. Echo reveals worsening RV function and increasing pulmonary pressures likely representing worsening of COPD. Smoking cessation recommended. Will diurese and follow volume status clinically along with renal function. (Theo Zapata D.O.)
--- NOTE | 2017-03-01 13:05 | Progress Note ---
Internal Med Progress Note Date of Service: Mar 01, 2017. Provider Documentation: SUBJECTIVE: The patient was seen and examined No complaints at rest SOB on exertion OBJECTIVE: Vital Signs-as noted below Exam: General-no distress at rets Eyes-normal ENT-normal Neck-supple Lungs-Clear to auscultate bilaterally Heart-regular,no murmur appreciated Abdomen-Benign,no masses ,bowel sound present Extremities-Trace edema bilaterally Neuro-AAOx3 Lab data as noted below. ASSESSMENT & PLAN: ACUTE DECOMPENSATED DIASTOLIC HEART FAILURE, BILATERAL BASILAR PNEUMONIA - patient comfortable, not in distress,on room air -CXR no significant pulmonary vascular congestion -Continue with IV Lasix 40 mg BID -monitor volume status closely - will start Nebs q6h and empiric Doxycycline PO - Well Logging Operator [employer] and Line Mover consulted-appreciate Input MILD TROPONIN ELEVATION-likely due to Renal impairment - no chest pain - ekg no signs of acute ischemia - trend cardiac markers-No ACS -update echo-pending - already on Aspirin and Metoprolol ACUTE RENAL FAILURE ON CKD 3 -creatinine increased from baseline 1.7 to 2.4 after receiving Lasix 60mg IVx2 as outpatient this week -Restarted on Lasix 40mg IV BID - Dr. Valencia consulted-appreciate Input -Albumin ordered DM 2 -usually on Levemir 16 units BID -decrease to Levemir 8 units BID with ISS for now until PO intake improves -Pharmacy consulted HTN continue Metoprolol GASTROPARESIS continue Protonix, Ranitidine, Zofran, Reglan repeat EKG in AM to monitor QT FULL CODE per patient DVT prophylaxis Heparin SC Disposition lives at home ff up with Dr. Biggs for PCP, Dr. Castañeda for Cardio, Dr. Valencia for Nephro Vital Signs: Date Time Temp Pulse Resp B/P (MAP) Pulse Ox O2 Delivery O2 Flow Rate FiO2 03/01/17 12:48 36.9 83 16 121/71 (88) 95 Room Air 03/01/17 12:03 Room Air 03/01/17 08:26 36.9 89 22 105/68 (80) 92 Nasal Cannula 6.0 03/01/17 08:05 Room Air 03/01/17 07:50 37.1 85 15 111/68 (82) 91 Room Air 03/01/17 07:41 85 16 95 Room Air 03/01/17 04:11 36.8 86 20 132/78 (96) 91 Room Air 03/01/17 04:00 Room Air 03/01/17 00:00 Room Air 02/28/17 23:20 36.7 90 22 111/68 (82) 90 Room Air 02/28/17 20:00 92 Room Air 02/28/17 19:47 36.8 92 20 142/75 (97) 91 Room Air 02/28/17 19:18 85 18 92 Room Air 02/28/17 17:40 67 20 128/76 98 02/28/17 17:30 36.8 83 16 128/76 93 Room Air 02/28/17 15:51 81 20 148/79 96 Room Air 02/28/17 14:24 75 20 126/65 95 Room Air 02/28/17 14:22 96 Room Air Lab Results: Results Past 24 Hours Test 02/28/17 13:05 02/28/17 17:10 02/28/17 19:01 02/28/17 21:08 Range/Units Bedside Troponin I 0.490 0-0.045 ng/ml Bedside Glucose 265 303 70-90 mg/dl Total Creatine Kinase 106 26-192 U/L Creatine Kinase MB 5.4 0.5-3.6 ng/ml Creatine Kinase MB Ratio 5.1 0-3.0 Troponin I 0.476 0-0.045 ng/ml Test 03/01/17 00:05 03/01/17 01:04 03/01/17 03:54 03/01/17 06:37 Range/Units Bedside Glucose 192 140 70-90 mg/dl Total Creatine Kinase 102 26-192 U/L Creatine Kinase MB 4.2 0.5-3.6 ng/ml Creatine Kinase MB Ratio 4.1 0-3.0 Troponin I 0.420 0-0.045 ng/ml White Blood Count 8.68 4.8-10.8 K/uL Red Blood Count 3.05 4.2-5.4 M/uL Hemoglobin 9.1 12.0-16.0 g/dL Hematocrit 29.0 37-47 % Mean Corpuscular Volume 95.1 80-100 fL Mean Corpuscular Hemoglobin 29.8 25-34 pg Mean Corpuscular Hemoglobin Concent 31.4 32-36 g/dl Platelet Count 272 130-400 K/uL Mean Platelet Volume 9.0 7.4-10.4 fL Neutrophils (%) (Auto) 60.6 % Lymphocytes (%) (Auto) 28.8 % Monocytes (%) (Auto) 7.5 % Eosinophils (%) (Auto) 2.6 % Basophils (%) (Auto) 0.3 % Neutrophils # (Auto) 5.25 1.4-6.5 K/uL Lymphocytes # (Auto) 2.50 1.2-3.4 K/uL Monocytes # (Auto) 0.65 0.11-0.59 K/uL Eosinophils # (Auto) 0.23 0-0.5 K/uL Basophils # (Auto) 0.03 0-0.2 K/uL RDW Standard Deviation 48.3 36.4-46.3 fL RDW Coefficient of Variation 14.4 11.5-14.5 % Immature Granulocyte % (Auto) 0.2 % Immature Granulocyte # (Auto) 0.02 0.00-0.02 K/uL Sodium Level 141 136-145 mmol/L Potassium Level 5.0 3.5-5.1 mmol/L Chloride Level 110 98-107 mmol/L Carbon Dioxide Level 25 21-32 mmol/L Anion Gap 6.0 3-11 mmol/L Blood Urea Nitrogen 68 7-18 mg/dl Creatinine 2.40 0.60-1.20 mg/dl Est Creatinine Clear Calc Drug Dose 30.7 ml/min Estimated GFR () 25.8 Estimated GFR (Non- 22.3 BUN/Creatinine Ratio 28.3 10-20 Random Glucose 120 70-99 mg/dl Calcium Level 9.8 8.5-10.1 mg/dl Test 03/01/17 06:47 03/01/17 11:02 Range/Units Bedside Glucose 131 247 70-90 mg/dl
--- NOTE | 2017-03-01 16:10 | ECHOCARDIOGRAM REPORT ---
*NOTICE TO RECEIVING REPUBLICAN AGENCY This information is strictly Confidential and protected under [place] law. [place] law prohibits you from making any further disclosure of this information unless further disclosure is expressly permitted by the written consent of the person to whom it pertains or is authorized by law. A general authorization for the release of medical or other information is not sufficient for this purpose. Hospital accepts no responsibility if the information is made available to any other person, INCLUDING THE PATIENT. Interpretation Summary * Name: GRECIA ROSADO Study Date: 03/01/2017 02:06 PM BP: 121/71 mmHg * Patient Location: C.2T\S\S242\S\2 HR: 83 * : 1965 (M/d/yyyy) Gender: Female Height: 67 in * Age: 52 yrs Ethnicity: CA Weight: 188 lb * Ordering Physician: Reji Love * Referring Physician: Landry Castañeda D.O. * Performed By: Leatha Davis RDCS * * Reason For Study: CHF * BSA: 2.0 m2 * -- Conclusions -- * Compared to previous study of 11/06/16: RV systolic function is reduced and PASP has increased. * Normal LV chamber size with mild concentric LVH. * Normal LV systolic function, EF 55-60%. * No segmental left ventricular wall motion abnormalities are noted. * Grade II diastolic dysfunction. * The right ventricular cavity size is normal (basal dimension <4.2 cm in right ventricular apical 4-chamber view). The right ventricular systolic function is reduced as assessed by tricuspid annular plane systolic excursion (TAPSE) (TAPSE <1.6 cm). * Aortic valve sclerosis mild, without significant aortic valvular stenosis. * Trace mitral regurgitation. * Mild tricuspid regurgitation. * Pulmonary hypertension is present. * PASP of 47 mmHg assuming a RA pressure of 3 mmHg. Procedure Details * A complete two-dimensional transthoracic echocardiogram was performed (2D, M-mode, Doppler and color flow Doppler). * A contrast injection of Definity was performed to improve assessment of LV function. * Contrast was injected into an intravenous site in the right arm. * One vial of Definity ultrasound contrast was diluted in normal saline to a total volume of 10 ml. A total of '2' ml of solution was administered during imaging. * Lot # [id number] of Definity utilized for procedure. * Expiration date MAR 19. * The attending nurse who injected the contrast agent was Magdi Vigil RN. Left Ventricle * The left ventricle is normal in size. * There is mild concentric left ventricular hypertrophy. * Ejection Fraction = 55-60%. * Left ventricular systolic function is normal. * No segmental left ventricular wall motion abnormalities are noted. * Flattened septum is consistent with RV pressure/volume overload. Right Ventricle * The right ventricular cavity size is normal (basal dimension <4.2 cm in right ventricular apical 4-chamber view). * The right ventricular systolic function is reduced as assessed by tricuspid annular plane systolic excursion (TAPSE) (TAPSE <1.6 cm). Atria * The left atrial size is normal. * Right atrial size is normal. * No ASD detected; PFO is not assessed. Mitral Valve * The mitral valve anatomy is normal. * There is no mitral valve stenosis. * There is trace mitral regurgitation. Tricuspid Valve * The tricuspid valve anatomy is normal. * There is no tricuspid stenosis. * There is mild tricuspid regurgitation. Aortic Valve * The aortic valve is trileaflet. * Aortic valve sclerosis mild, without significant aortic valvular stenosis. * There is no significant aortic regurgitation. Pulmonic Valve * The pulmonary valve is not well seen, but the Doppler examination is normal without significant regurgitation or stenosis. Great Vessels * The aortic root and proximal ascending aorta are normal sized. Pericardium/Pleural * There is no pericardial effusion. Left Ventricular Diastolic Function * Diastolic dysfunction, Grade II (pseudonormalization pattern). MMode 2D Measurements and Calculations IVSd 1.3 cm LVIDd 4.1 cm LVIDs 3.3 cm LVPWd 0.97 cm IVS/LVPW 1.3 FS 19.5 % EDV(Teich) 73.7 ml ESV(Teich) 43.9 ml EF(Teich) 40.5 % EDV(cubed) 68.3 ml ESV(cubed) 35.7 ml EF(cubed) 47.8 % LV mass(C)d 158.8 grams LV mass(C)dI 80.6 grams/m\S\2 CO(Teich) 2.6 l/min CI(Teich) 1.3 l/min/m\S\2 SV(Teich) 29.8 ml SI(Teich) 15.1 ml/m\S\2 CO(cubed) 2.8 l/min CI(cubed) 1.4 l/min/m\S\2 SV(cubed) 32.6 ml SI(cubed) 16.6 ml/m\S\2 Ao root diam 2.5 cm Ao root area 4.8 cm\S\2 ACS 1.5 cm asc Aorta Diam 2.4 cm LVOT diam 1.9 cm LVOT area 3.0 cm\S\2 LVAd ap4 29.8 cm\S\2 LVLd ap4 8.2 cm EDV(MOD-sp4) 92.0 ml LVAs ap4 23.1 cm\S\2 LVLs ap4 7.4 cm ESV(MOD-sp4) 59.0 ml EF(MOD-sp4) 35.9 % LVAd ap2 38.3 cm\S\2 LVLd ap2 9.1 cm EDV(MOD-sp2) 133.0 ml LVAs ap2 28.6 cm\S\2 LVLs ap2 8.5 cm ESV(MOD-sp2) 82.0 ml EF(MOD-sp2) 38.3 % CO(MOD-sp4) 2.8 l/min CI(MOD-sp4) 1.4 l/min/m\S\2 SV(MOD-sp4) 33.0 ml SI(MOD-sp4) 16.8 ml/m\S\2 CO(MOD-sp2) 4.4 l/min CI(MOD-sp2) 2.2 l/min/m\S\2 SV(MOD-sp2) 51.0 ml SI(MOD-sp2) 25.9 ml/m\S\2 Doppler Measurements and Calculations MV E max jana 122.4 cm/sec MV A max jana 100.7 cm/sec MV E/A 1.2 MV dec time 0.13 sec Ao V2 max 122.2 cm/sec Ao max PG 6.0 mmHg Ao max PG (full) 3.0 mmHg GLENN(V,A) 2.1 cm\S\2 GLENN(V,D) 2.1 cm\S\2 AI end-d jana 225.9 cm/sec LV V1 max PG 3.0 mmHg LV V1 max 86.9 cm/sec PA V2 max 80.1 cm/sec PA max PG 2.6 mmHg PA acc slope 463.4 cm/sec\S\2 PA acc time 0.13 sec PI end-d jana 194.1 cm/sec TR max jana 329.7 cm/sec PA pr(Accel) 22.0 mmHg
[2017-03-01] MEDS: TRAVOPROST Z 0.004% OPH SOLN 2.5 ML BTL OP SCH (20:48)
[2017-03-01] MEDS: BISACODYL 5 MG TABEC PO SCH (20:51)
[2017-03-01] MEDS: LORAZEPAM 1 MG TAB PO SCH (20:51)
[2017-03-01] MEDS ORDERED: ASPIRIN 81 MG ECTAB PO SCH (21:00)
[2017-03-02 00:07] VITALS: BP 124/71; PULSE 91; TEMP 37.1; O2SAT 92
[2017-03-02] MEDS: IPRATROPIUM BROMIDE NEB SOLN 0.02% 2.5 ML VIAL INH SCH ×3 (02:33→14:12)
[2017-03-02] MEDS: LEVALBUTEROL 1.25MG/0.5ML NEB INH SCH ×3 (02:33→14:13)
[2017-03-02 04:39] VITALS: BP 135/74; PULSE 87; TEMP 36.9; O2SAT 91
[2017-03-02 05:45] LABS: BASO % 0.4 %; BASO ABS # 0.03 K/uL (0-0.2); HEMATOCRIT 28.6 % (37-47); IG% 0.1 %; LYMPH % 29.8 %; LYMPH ABS # 2.19 K/uL (1.2-3.4); MEAN CELL VOLUME 95.7 fL (80-100); MEAN CORPUSCULAR HEMOGLOBIN 29.4 pg (25-34); MEAN CORPUSCULAR HGB CONC 30.8 g/dl (32-36); MEAN PLATELET VOLUME 9.2 fL (7.4-10.4); MONO % 9.9 %; NEUT % 56.8 %; PLATELET COUNT 260 K/uL (130-400); RED BLOOD COUNT 2.99 M/uL (4.2-5.4); WHITE BLOOD COUNT 7.35 K/uL (4.8-10.8)
[2017-03-02] MEDS: ARMOUR THYROID 120 MG PO SCH (05:53)
[2017-03-02] MEDS: HEPARIN SOD 5000 UNIT/0.5 ML CARP SQ SCH ×2 (05:54→12:15)
[2017-03-02 06:07] LABS: COMPLETE YES; POLYCHROMASIA 1+
[2017-03-02 06:12] LABS: BUN/CREATININE RATIO 31.1 (10-20); CREATININE 2.3 mg/dl (0.60-1.20); POTASSIUM 4.4 mmol/L (3.5-5.1)
[2017-03-02 06:15] LABS: CALCIUM 9.1 mg/dl (8.5-10.1)
[2017-03-02] MEDS: [UNRECOGNIZED DRUG - OTHER] SCH ×2 (07:10)
[2017-03-02 07:20] VITALS: BP 136/81; PULSE 86; TEMP 36.5; O2SAT 99
[2017-03-02 07:31] VITALS: PULSE 86; O2SAT 90
[2017-03-02] MEDS: LINACLOTIDE 145 MCG CAP PO SCH (07:59)
[2017-03-02] MEDS ORDERED: ALBUMIN HUMAN 25% 12.5 GM/50 ML VIAL IV ONE (08:05)
[2017-03-02] MEDS: PANTOprazole SOD 40 MG TAB PO SCH (08:06)
[2017-03-02] MEDS: AMPHETAMINE ASP/SULF/DEXTRAMPH 10 MG TAB PO SCH ×2 (08:06→11:49)
[2017-03-02] MEDS: DOXYCYCLINE HYCLATE 100 MG CAP PO SCH (08:07)
[2017-03-02] MEDS: METOPROLOL TARTRATE 25 MG TAB PO SCH (08:07)
[2017-03-02] MEDS: RANITIDINE HCL 150 MG TAB PO SCH (08:07)
[2017-03-02] MEDS: LORATADINE 10 MG TAB PO SCH (08:08)
[2017-03-02] MEDS: CHOLECALCIFEROL 1000 INTER.UNIT TAB PO SCH (08:08)
[2017-03-02] MEDS: METOCLOPRAMIDE HCL 10 MG TAB PO SCH ×2 (08:09→11:51)
[2017-03-02] MEDS: VORTIOXETINE HBR 20 MG PO SCH (08:10)
[2017-03-02] MEDS: VORTIOXETINE HBR 10 MG TAB PO SCH (08:10)
[2017-03-02] MEDS: ALBUMIN 25% 50 ML with FUROSEMIDE INJ 40 MG IV SCH ×4 (08:11→08:28)
[2017-03-02] MEDS: ONDANSETRON 8 MG TAB PO SCH ×2 (08:11→12:15)
[2017-03-02] MEDS: INSULIN ASPART 100 UNITS/ML 3 ML PEN SC SCH ×2 (08:15→11:50)
[2017-03-02] MEDS: INSULIN DETEMIR FLEXPEN/FLEX TOUCH 100 UNITS/ML 3ML SC SCH (08:15)
--- NOTE | 2017-03-02 10:15 | Progress Note ---
Internal Med Progress Note Date of Service: Mar 02, 2017. Provider Documentation: SUBJECTIVE: The patient was seen and examined No complaints at rest SOB on exertion Feels a lot better Wants to go home Ambulating well OBJECTIVE: Vital Signs-as noted below Exam: General-no distress at rest Eyes-normal ENT-normal Neck-supple Lungs-Clear to auscultate bilaterally Heart-regular,no murmur appreciated Abdomen-Benign,no masses ,bowel sound present Extremities-Trace edema bilaterally Neuro-AAOx3 Lab data as noted below. ASSESSMENT & PLAN: ACUTE DECOMPENSATED DIASTOLIC HEART FAILURE, BILATERAL BASILAR PNEUMONIA - patient comfortable, not in distress,on room air -CXR no significant pulmonary vascular congestion -Continue with IV Lasix 40 mg BID -monitor volume status closely - will start Nebs q6h and empiric Doxycycline PO - [employer] Instructor consulted-appreciate Input -Clinically a lot better today -Likely to be discharged today on Torsemide MILD TROPONIN ELEVATION-likely due to Renal impairment - no chest pain - ekg no signs of acute ischemia - trend cardiac markers-No ACS -ECHO::Compared to previous study of 11/06/16: RV systolic function is reduced and PASP has increased. * Normal LV chamber size with mild concentric LVH. * Normal LV systolic function, EF 55-60%. * No segmental left ventricular wall motion abnormalities are noted. * Grade II diastolic dysfunction. * The right ventricular cavity size is normal (basal dimension <4.2 cm in right ventricular apical 4-chamber view). The right ventricular systolic function is reduced as assessed by tricuspid annular plane systolic excursion ( TAPSE) (TAPSE <1.6 cm). - already on Aspirin and Metoprolol ACUTE RENAL FAILURE ON CKD 3 -creatinine increased from baseline 1.7 to 2.4 after receiving Lasix 60mg IVx2 as outpatient this week -Restarted on Lasix 40mg IV BID - Dr. Valencia consulted-appreciate Input -Albumin ordered -Creatinine is a little better at 2.30 DM 2 -usually on Levemir 16 units BID -decrease to Levemir 8 units BID with ISS for now until PO intake improves -Pharmacy consulted-appreciate input HTN continue Metoprolol GASTROPARESIS continue Protonix, Ranitidine, Zofran, Reglan repeat EKG in AM to monitor QT FULL CODE per patient DVT prophylaxis Heparin SC Disposition lives at home ff up with Dr. Biggs for PCP, Dr. Castañeda for Cardio, Dr. Valencia for Nephro Vital Signs: Date Time Temp Pulse Resp B/P (MAP) Pulse Ox O2 Delivery O2 Flow Rate FiO2 03/02/17 08:00 Room Air 03/02/17 07:31 86 16 90 Room Air 03/02/17 07:20 36.5 86 16 136/81 (99) 99 Room Air 03/02/17 04:39 36.9 87 18 135/74 (94) 91 Room Air 03/02/17 04:00 Room Air 03/02/17 00:07 37.1 91 16 124/71 (88) 92 Room Air 03/01/17 23:59 Room Air 03/01/17 20:39 36.9 88 20 118/72 (87) 98 Room Air 03/01/17 20:00 Room Air 03/01/17 19:20 91 16 90 Room Air 03/01/17 16:09 36.8 86 20 133/66 (88) 93 Room Air 03/01/17 16:03 Room Air 03/01/17 12:48 36.9 83 16 121/71 (88) 95 Room Air 03/01/17 12:03 Room Air Lab Results: Results Past 24 Hours Test 03/01/17 11:02 03/01/17 16:33 03/01/17 20:03 03/02/17 05:20 Range/Units Bedside Glucose 247 299 346 70-90 mg/dl White Blood Count 7.35 4.8-10.8 K/uL Red Blood Count 2.99 4.2-5.4 M/uL Hemoglobin 8.8 12.0-16.0 g/dL Hematocrit 28.6 37-47 % Mean Corpuscular Volume 95.7 80-100 fL Mean Corpuscular Hemoglobin 29.4 25-34 pg Mean Corpuscular Hemoglobin Concent 30.8 32-36 g/dl Platelet Count 260 130-400 K/uL Mean Platelet Volume 9.2 7.4-10.4 fL Neutrophils (%) (Auto) 56.8 % Lymphocytes (%) (Auto) 29.8 % Monocytes (%) (Auto) 9.9 % Eosinophils (%) (Auto) 3.0 % Basophils (%) (Auto) 0.4 % Neutrophils # (Auto) 4.17 1.4-6.5 K/uL Lymphocytes # (Auto) 2.19 1.2-3.4 K/uL Monocytes # (Auto) 0.73 0.11-0.59 K/uL Eosinophils # (Auto) 0.22 0-0.5 K/uL Basophils # (Auto) 0.03 0-0.2 K/uL RDW Standard Deviation 49.2 36.4-46.3 fL RDW Coefficient of Variation 14.6 11.5-14.5 % Immature Granulocyte % (Auto) 0.1 % Immature Granulocyte # (Auto) 0.01 0.00-0.02 K/uL Polychromasia 1+ Sodium Level 140 136-145 mmol/L Potassium Level 4.4 3.5-5.1 mmol/L Chloride Level 109 98-107 mmol/L Carbon Dioxide Level 25 21-32 mmol/L Anion Gap 6.0 3-11 mmol/L Blood Urea Nitrogen 72 7-18 mg/dl Creatinine 2.30 0.60-1.20 mg/dl Est Creatinine Clear Calc Drug Dose 32.1 ml/min Estimated GFR () 27.2 Estimated GFR (Non- 23.5 BUN/Creatinine Ratio 31.1 10-20 Random Glucose 191 70-99 mg/dl Calcium Level 9.1 8.5-10.1 mg/dl Iron Level 40 35-150 mcg/dl Total Iron Binding Capacity 254 250-450 mcg/dl Ferritin 106.0 8.0-388.0 ng/ml Test 03/02/17 06:53 Range/Units Bedside Glucose 204 70-90 mg/dl
[2017-03-02 11:35] VITALS: BP 107/68; PULSE 82; TEMP 37.2; O2SAT 94
[2017-03-02 11:58] VITALS: BP 107/68; PULSE 82; TEMP 37.2; O2SAT 94
[2017-03-02] MEDS ORDERED: DXY100 PO (12:49)
--- NOTE | 2017-03-02 12:53 | Discharge Instructions ---
Discharge Instructions Date of Service Mar 02, 2017. Admission Reason for Admission: Shortness Of Breath Discharge Discharge Diagnosis / Problem: [place] Diastolic heart Failure,YVETTE on CKD Discharge Goals Goal(s): Prevent Disease Progression Activity Recommendations Activity Limitations: resume your previous activity . Instructions / Follow-Up Instructions / Follow-Up Dr Biggs on 03/06/17 at 10:%% AM. David PRP done on Saturday and report to Dr Valencia Call your Primary Care doctor if any of the following symptoms or problems start or get worse: * Shortness of breath or difficulty breathing * Wake up at night short of breath * Chest pain * Cough * Swelling of your hands, feet, or legs * More fatigued or tired with your normal activity * Palpitations - sudden fast heart beats WEIGHT * Weigh yourself every morning after using the bathroom. * Use the same scale. * Wear the same amount of clothing. * Write your weight down on a chart. * Call your Primary Care doctor if you gain more than 2-3 pounds in 1-2 days. MEDICATIONS * Use this discharge instruction sheet for medication instructions. * Take your medications at the time your doctor ordered. * Do not skip a dose of your medicines. * If you miss a dose of medicine, take it as soon as possible, but DO NOT DOUBLE A DOSE. * Read your medicine information when you get home. * Know all of the side effects of your medicine. If in doubt, ask your pharmacist * Call your Primary Care doctor's office if you have any side effects. * Be sure all of your doctors know what medicine and herbs you take (including cold, flu, and herbal medicine). Take the following with you to your follow-up doctor appointments: * Weight Chart * Medication List * List of questions Do not drink excessive alcohol, beer or wine. Current Hospital Diet Patient's current hospital diet: AHA Diet (Heart Healthy), Diabetes Type 2 Diet Discharge Diet Recommended Diet: AHA Diet (Heart Healthy), Low Sodium Diet (2gm Na), Diabetes Type 2 Diet Fluid Restriction: 1500 ml (6 cups) Pending Studies Studies pending at discharge: no Medical Emergencies . Who to Call and When: Call 911 or go to the Emergency Room if: * If at any time you feel your situation is an emergency * You have tightness or pain in your chest that does not go away with rest or Nitroglycerin * You are very short of breath even with rest . Non-Emergent Contact Non-Emergency issues call your: Primary Care Provider . Past History Medical & Surgical History: (1) CHF exacerbation (2) Dyspnea (3) Renal insufficiency (4) Shortness of breath (5) Depression (6) GERD (gastroesophageal reflux disease) (7) HTN (hypertension) (8) Dyslipidemia (9) Hypothyroidism (10) Anxiety (11) History of section (12) H/O nasal septoplasty (13) S/P CABG x 2 . "Provider Documentation" section prepared by Martine Mcadams. . VTE Core Measure Inpt VTE Proph given/why not?: Unfractionated heparin SQ
--- NOTE | 2017-03-03 08:02 | Discharge Summary ---
Discharge Summary Date of Service Mar 03, 2017. Discharge Summary Admission Date: Feb 28, 2017 at 15:55 Discharge Date: Mar 02, 2017 Discharge Disposition: Home Principal Diagnosis: Acute Diastolic heart Failure,YVETTE on CKD Secondary Diagnoses/Problems: Please see the H&P and Hospital Progress note Consultations: Cardiology and Nephrology Medication Reconciliation New Medications: Doxycycline Hyclate (Doxycycline Hyclate) 100 Mg Cap 100 MG PO BID for 5 Days, #10 CAP Continued Medications: Acetaminophen (Tylenol) 500 Mg Tab 1000 MG PO QID, TAB Amphetamine-Dextroamphetamine 10MG (Adderall 10MG) 1 Tab Tab 10 MG PO BID, TAB Amphetamine-Dextroamphetamine 30MG (Adderall Xr 30MG) 1 Cap Cap 30 MG PO BID, CAP Aspirin (Aspirin Ec) 81 Mg Tab 162 MG PO HS Biotin (Biotin 5000) 5 Mg Cap 5 MG PO QPM Bisacodyl (Bisacodyl EC) 5 Mg Tabec 15 MG PO HS Cholecalciferol (D-5000) 5,000 Unit Tab 5000 UNITS PO DAILY for 30 Days, TAB 3 Refills Cranberry (Vaccinium Macrocarp (Cranberry Extract) 250 Mg Tab 500 MG PO QAM Insulin Aspart (Novolog) 100 Units/Ml Inj 1 UNIT SC AC per sliding scale, 1:15 for carbs coverage, max 15 units; also uses correction factor 70mg/dL/unit for elevatations above 130 Insulin Detemir (Levemir) 100 Units/Ml Inj 16 UNITS SC BID Linaclotide (Linzess) 145 Mcg Cap 145 MCG PO QAM Loratadine (Claritin) 10 Mg Tab 10 MG PO QAM, TAB Lorazepam (Lorazepam) 1 Mg Tab 1 MG PO HS Metoclopramide Hcl (Reglan) 10 Mg Tab 10 MG PO QID, TAB Metoprolol Tartrate (Lopressor) (Lopressor) 25 Mg Tab 25 MG PO BID, TAB Olopatadine Hydrochloride (Pataday) 37 Drops/2.5 Ml Soln 1 DROPS OPB DAILY PRN for prn, ML Ondansetron (Ondansetron HCl) 8 Mg Tab 8 MG PO TID Pantoprazole (Protonix) 40 Mg Tab 40 MG PO BID, 0 Refills Ranitidine (Zantac) 150 Mg Tab 150 MG PO BID, TAB Thyroid (Pollock Thyroid) 120 Mg Tab 1 TAB PO DAILY Torsemide (Demadex) 20 Mg Tab 20 MG PO DAILY, TAB Travoprost (Travatan Z) 0.004 % Rodney 1 DROPS OP HS, #1 BTL 5 Refills Vortioxetine HBr (Trintellix) 20 Mg Tab 30 MG PO QAM Admission Information HPI (per Admitting provider): 52 year old female with history of CAD/CABG, Ischemic Cardiomyopathy, HTN, DM on Insulin, CKD 3, presenting with exertional dyspnea, leg swelling and cough x [address] Biggs for Primary Care, Dr. Castañeda for CAD, Dr. Valencia for CKD 3. Patient was at her usual state of health until last Saturday, when she presented to the Cardiology clinic for exertional dyspnea and bilateral leg swelling. She was given Lasix 60mg IV on that day, after which the patient had minimal relief. She returned to the Cardiology Clinic yesterday with similar symptoms and was given another dose of Lasix 60mg IV. It was also noted that her crea was increasing from 1.7 to 2.1 to 2.4 She was advised to proceed to the ER with no improvement She then went to the ER today for evaluation. CXR did not show signs of pulmonary vascular congestion, but did reveal possible bibasilar pneumonitis. Troponin mildly elevated at 0.49, EKG no signs of acute ischemia. On exam, patient seen sitting up in bed, comfortable, not in distress, on room air. Denies active chest pain, dyspnea at rest, palpitations, dizziness. Reports cough, occasionally productive x 1 week, still smokes. No other symptoms Past Medical/Surgical History Medical Problems: (1) ADD (attention deficit disorder) Status: Chronic (2) Anxiety Status: Chronic (3) CAD (coronary artery disease) Permanent Comment: s/p CABG Status: Chronic (4) CKD (chronic kidney disease) stage 3, GFR 30-59 ml/min Status: Chronic (5) Depression Permanent Comment: TMS therapy Status: Chronic (6) Diabetes mellitus type 1 Status: Chronic (7) Dyslipidemia Status: Chronic (8) GERD (gastroesophageal reflux disease) Status: Chronic (9) Glaucoma Status: Chronic (10) HTN (hypertension) Status: Chronic (11) Hypothyroidism Status: Chronic (12) Tobacco abuse Status: Chronic Surgical Problems: (1) H/O nasal septoplasty Status: Resolved (2) History of section Status: Resolved (3) S/P CABG x 2 Permanent Comment: Jason Garciaer 12/2012 Status: Resolved Family History FH: CAD (coronary artery disease) FATHER (AL at age 47, CABG x 4 ) Social History Smoking Status: Current Every Day Smoker Alcohol Use: none Immunizations History of Influenza Vaccine: Yes Influenza Vaccine Date: Jul 22, 2016 History of Tetanus Vaccine?: Yes Tetanus Immunization Date: Nov 17, 2010 History of Pneumococcal: Yes Pneumococcal Date: Nov 28, 2005 History of Hepatitis B Vaccine: Yes Hepatitis Immunization Date: Feb 24, 2003 Multi-Drug Resistant Organisms History of MDRO: No Allergies Coded Allergies: Penicillins (Verified Allergy, Intermediate, BLOTCHY SKIN/ ITCHY, 02/28/17) Vancomycin (Unverified Allergy, Intermediate, SHORTNESS OF BREATH, 02/28/17 ) Clopidogrel (Verified Allergy, Mild, rash, 02/28/17) rash due to Plavix or ertapenem Ertapenem (Verified Allergy, Mild, rash, 02/28/17) rash due to Plavix or ertapenem? Cephalosporins (Verified Allergy, Unknown, CECLOR-UNKNOWN, 02/28/17) Erythromycin (Unverified Allergy, Unknown, FROM H AND P-RASH, 02/28/17) Statins (Unverified Allergy, Unknown, MYALGIA, 02/28/17) Codeine (Verified Adverse Reaction, Unknown, VOMITING, 02/28/17) Nitrofurantoin (Unverified Adverse Reaction, Unknown, vomiting, 02/28/17) Pregabalin (Unverified Adverse Reaction, Unknown, VERY EMOTIONAL CRYING, ) Home Medications Scheduled Acetaminophen (Tylenol), 1,000 MG PO QID Amphetamine-Dextroamphetamine 10MG (Adderall 10MG), 10 MG PO BID Amphetamine-Dextroamphetamine 30MG (Adderall Xr 30MG), 30 MG PO BID Aspirin (Aspirin Ec), 162 MG PO HS Biotin (Biotin 5000), 5 MG PO QPM Bisacodyl (Bisacodyl EC), 15 MG PO HS Cholecalciferol (D-5000), 5,000 UNITS PO DAILY Cranberry (Vaccinium Macrocarp (Cranberry Extract), 500 MG PO QAM Insulin Aspart (Novolog), 1 UNIT SC AC Insulin Detemir (Levemir), 16 UNITS SC BID Linaclotide (Linzess), 145 MCG PO QAM Loratadine (Claritin), 10 MG PO QAM Lorazepam (Lorazepam), 1 MG PO HS Metoclopramide Hcl (Reglan), 10 MG PO QID Metoprolol Tartrate (Lopressor) (Lopressor), 25 MG PO BID Ondansetron (Ondansetron HCl), 8 MG PO TID Pantoprazole (Protonix), 40 MG PO BID Ranitidine (Zantac), 150 MG PO BID Thyroid (Pollock Thyroid), 1 TAB PO DAILY Torsemide (Demadex), 20 MG PO DAILY Travoprost (Travatan Z), 1 DROPS OP HS Vortioxetine HBr (Trintellix), 30 MG PO QAM Scheduled PRN Olopatadine Hydrochloride (Pataday), 1 DROPS OPB DAILY PRN for prn Review of Systems Constitutional- no fever; no weight loss Eyes- no acute visual changes ENT- no sinus drainage; no pharyngitis Pulmonary- (+) as noted above Cardiac- (+) as noted above GI- no nausea, no vomiting, no diarrhea, no melena, no hematochezia - no dysuria, no hematuria Musculoskeletal- no arthralgias, no myalgias Derm- no rashes, no new skin lesions, no changing skin lesions Hematologic- no unusual bruising, no unusual bleeding Lymphatics- no adenopathy Endocrine- no polyuria or polydipsia; no heat or cold intolerance Neuro- no headaches, no focal neurologic symptoms Psych- no anxiety, no depression Physical Ex - H&P Physical Exam Vital Signs Date Time Temp Pulse Resp B/P (MAP) Pulse Ox O2 Delivery O2 Flow Rate FiO2 02/28/17 15:51 81 20 148/79 96 Room Air 02/28/17 14:24 75 20 126/65 95 Room Air 02/28/17 14:22 96 Room Air 02/28/17 12:14 76 20 127/65 95 Room Air 02/28/17 11:40 75 02/28/17 11:24 36.6 68 18 128/68 99 Room Air General Appearance: WD/WN, no apparent distress Head: normocephalic, atraumatic Eyes: normal inspection, EOMI, sclerae normal ENT: normal ENT inspection, hearing grossly normal, pharynx normal, + pertinent finding (dry oral mucosa) Neck: supple, no adenopathy, thyroid normal, no JVD, trachea midline Respiratory/Chest: chest non-tender, no respiratory distress, no accessory muscle use, + rales (mild rales biateral bases) Cardiovascular: regular rate, rhythm, no JVD, no murmur, + pertinent finding ( mild lower leg edema) Abdomen/GI: normal bowel sounds, non tender, soft, no organomegaly Back: normal inspection, no CVA tenderness Extremities/Musculoskelatal: no calf tenderness, no pedal edema (mild lower leg edema) 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/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: 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, no motor/sensory deficits, alert, normal mood/affect, oriented x 3 Skin: normal color, warm/dry, no rash Lymphatic: no adenopathy Diagnostics - H&P Diagnostics Laboratory Results Results Past 24 Hours Test 02/28/17 12:20 02/28/17 13:05 Range/Units White Blood Count 9.01 4.8-10.8 K/uL Red Blood Count 3.53 4.2-5.4 M/uL Hemoglobin 10.2 12.0-16.0 g/dL Hematocrit 33.1 37-47 % Mean Corpuscular Volume 93.8 80-100 fL Mean Corpuscular Hemoglobin 28.9 25-34 pg Mean Corpuscular Hemoglobin Concent 30.8 32-36 g/dl RDW Standard Deviation 47.0 36.4-46.3 fL RDW Coefficient of Variation 14.2 11.5-14.5 % Platelet Count 294 130-400 K/uL Mean Platelet Volume 9.0 7.4-10.4 fL Prothrombin Time 10.5 9.0-12.0 SECONDS Prothromb Time International Ratio 1.0 0.9-1.1 Activated Partial Thromboplast Time 23.8 21.0-31.0 SECONDS Partial Thromboplastin Ratio 0.9 Sodium Level 136 136-145 mmol/L Potassium Level 4.4 3.5-5.1 mmol/L Chloride Level 105 98-107 mmol/L Carbon Dioxide Level 23 21-32 mmol/L Anion Gap 8.0 3-11 mmol/L Blood Urea Nitrogen 66 7-18 mg/dl Creatinine 2.40 0.60-1.20 mg/dl Est Creatinine Clear Calc Drug Dose 30.4 ml/min Estimated GFR () 25.8 Estimated GFR (Non- 22.3 BUN/Creatinine Ratio 27.3 10-20 Random Glucose 260 70-99 mg/dl Calcium Level 9.3 8.5-10.1 mg/dl Total Bilirubin 0.2 0.2-1 mg/dl Aspartate Amino Transf (AST/SGOT) 84 15-37 U/L Alanine Aminotransferase (ALT/SGPT) 253 12-78 U/L Alkaline Phosphatase 477 45-117 U/L Total Creatine Kinase 154 26-192 U/L Creatine Kinase MB 7.0 0.5-3.6 ng/ml Creatine Kinase MB Ratio 4.5 0-3.0 Total Protein 6.6 6.4-8.2 gm/dl Albumin 3.5 3.4-5.0 gm/dl Globulin 3.1 2.5-4.0 gm/dl Albumin/Globulin Ratio 1.1 0.9-2 Bedside Troponin I 0.490 0-0.045 ng/ml Diagnostic Radiology cxr IMPRESSION: 1. Cardiomegaly without radiographic evidence of congestive failure. 2. Small pleural effusions with bibasilar airspace opacities. This could represent atelectasis versus an infectious/inflammatory pneumonitis. Clinical correlation will be required. EKG HR 77, sinus rhythm, no signs of acute infarct Impression - H&P Impression Assessment and Plan 52 year old female with history of CAD/CABG, Ischemic Cardiomyopathy, HTN, DM on Insulin, CKD 3, presenting with exertional dyspnea, leg swelling and cough x 1 week. EXERTIONAL DYSPNEA POSSIBLE MILD CHF EXACERBATION, BILATERAL BASILAR PNEUMONIA - patient comfortable, not in distress,on room air CXR no pulmonary vascular congestion crea increased from baseline 1.7 to 2.4 after receiving Lasix 60mg IV as outpatient this week hold lasix or usual torsemide for today monitor volume status closely may resume diuretics tomorrow when renal function improves - will start Nebs q6h and empiric Doxycycline PO - [employer] consulted MILD TROPONIN ELEVATION - no chest pain - ekg no signs of acute ischemia - trend cardiac markers update echo - already on Aspirin and Metoprolol ACUTE RENAL FAILURE ON CKD 3 - crea increased from baseline 1.7 to 2.4 after receiving Lasix 60mg IV as outpatient this week - hold diuretics for now - Dr. Valencia consulted DM 2 usually on Levemir 16 units BID decrease to Levemir 8 units BID with ISS for now until PO intake improves Pharmacy consulted HTN continue Metoprolol GASTROPARESIS continue Protonix, Ranitidine, Zofran, Reglan repeat EKG in AM to monitor QT FULL CODE per patient DVT prophylaxis Heparin SC Disposition lives at home ff up with Dr. Biggs for PCP, Dr. Castañeda for Cardio, Dr. Valencia for Nephro VTE Prophylaxis VTE Risk Assessment Done? Y/N: Yes Risk Level: Moderate Given or contraindicated: Unfractionated heparin SQ Physical Exam (per Admitting): General Appearance: WD/WN, no apparent distress Head: normocephalic, atraumatic Eyes: normal inspection, EOMI, sclerae normal ENT: normal ENT inspection, hearing grossly normal, pharynx normal, + pertinent finding (dry oral mucosa) Neck: supple, no adenopathy, thyroid normal, no JVD, trachea midline Respiratory/Chest: chest non-tender, no respiratory distress, no accessory muscle use, + rales (mild rales biateral bases) Cardiovascular: regular rate, rhythm, no JVD, no murmur, + pertinent finding (mild lower leg edema) Abdomen/GI: normal bowel sounds, non tender, soft, no organomegaly Back: normal inspection, no CVA tenderness Extremities/Musculoskelatal: no calf tenderness, no pedal edema (mild lower leg edema) 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/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: 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, no motor/sensory deficits, alert , normal mood/affect, oriented x 3 Skin: normal color, warm/dry, no rash Lymphatic: no adenopathy Hospital Course ACUTE DECOMPENSATED DIASTOLIC HEART FAILURE, BILATERAL BASILAR PNEUMONIA - patient comfortable, not in distress,on room air -CXR no significant pulmonary vascular congestion -Continue with IV Lasix 40 mg BID -monitor volume status closely - will start Nebs q6h and empiric Doxycycline PO - Bobbin [employer] and 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 * Normal LV chamber size with mild concentric LVH. * Normal LV systolic function, EF 55-60%. * No segmental left ventricular wall motion abnormalities are noted. * Grade II diastolic dysfunction. * The right ventricular cavity size is normal (basal dimension <4.2 cm in right ventricular apical 4-chamber view). The right ventricular systolic function is reduced as assessed by tricuspid annular plane systolic excursion ( TAPSE) (TAPSE <1.6 cm). - already on Aspirin and Metoprolol ACUTE RENAL FAILURE ON CKD 3 -creatinine increased from baseline 1.7 to 2.4 after receiving Lasix 60mg IVx2 as outpatient this week -Restarted on Lasix 40mg IV BID - Dr. Valencia consulted-appreciate Input -Albumin ordered -Creatinine is a little better at 2.30 DM 2 -usually on Levemir 16 units BID -decrease to Levemir 8 units BID with ISS for now until PO intake improves -Pharmacy consulted-appreciate input HTN continue Metoprolol GASTROPARESIS continue Protonix, Ranitidine, Zofran, Reglan repeat EKG in AM to monitor QT FULL CODE per patient DVT prophylaxis Heparin SC Disposition lives at home ff up with Dr. Biggs for PCP, Dr. Castañeda for Cardio, Dr. Valencia for Nephro Total time spent on discharge = 35 minutes This includes examination of the patient, discharge planning, medication reconciliation, and communication with other providers. Discharge Instructions Date of Service Mar 02, 2017. Admission Reason for Admission: Shortness Of Breath Discharge Discharge Diagnosis / Problem: [place] Diastolic heart Failure,YVETTE on CKD Discharge Goals Goal(s): Prevent Disease Progression Activity Recommendations Activity Limitations: resume your previous activity . Instructions / Follow-Up Instructions / Follow-Up Dr Biggs on 03/06/17 at 10:%% AM. David PRP done on Saturday and report to Dr Valencia Call your Primary Care doctor if any of the following symptoms or problems start or get worse: * Shortness of breath or difficulty breathing * Wake up at night short of breath * Chest pain * Cough * Swelling of your hands, feet, or legs * More fatigued or tired with your normal activity * Palpitations - sudden fast heart beats WEIGHT * Weigh yourself every morning after using the bathroom. * Use the same scale. * Wear the same amount of clothing. * Write your weight down on a chart. * Call your Primary Care doctor if you gain more than 2-3 pounds in 1-2 days. MEDICATIONS * Use this discharge instruction sheet for medication instructions. * Take your medications at the time your doctor ordered. * Do not skip a dose of your medicines. * If you miss a dose of medicine, take it as soon as possible, but DO NOT DOUBLE A DOSE. * Read your medicine information when you get home. * Know all of the side effects of your medicine. If in doubt, ask your pharmacist * Call your Primary Care doctor's office if you have any side effects. * Be sure all of your doctors know what medicine and herbs you take (including cold, flu, and herbal medicine). Take the following with you to your follow-up doctor appointments: * Weight Chart * Medication List * List of questions Do not drink excessive alcohol, beer or wine. Current Hospital Diet Patient's current hospital diet: AHA Diet (Heart Healthy), Diabetes Type 2 Diet Discharge Diet Recommended Diet: AHA Diet (Heart Healthy), Low Sodium Diet (2gm Na), Diabetes Type 2 Diet Fluid Restriction: 1500 ml (6 cups) Pending Studies Studies pending at discharge: no Medical Emergencies . Who to Call and When: Call 911 or go to the Emergency Room if: * If at any time you feel your situation is an emergency * You have tightness or pain in your chest that does not go away with rest or Nitroglycerin * You are very short of breath even with rest . Non-Emergent Contact Non-Emergency issues call your: Primary Care Provider . Past History Medical & Surgical History: (1) CHF exacerbation (2) Dyspnea (3) Renal insufficiency (4) Shortness of breath (5) Depression (6) GERD (gastroesophageal reflux disease) (7) HTN (hypertension) (8) Dyslipidemia (9) Hypothyroidism (10) Anxiety (11) History of section (12) H/O nasal septoplasty (13) S/P CABG x 2 . "Provider Documentation" section prepared by Martine Mcadams. . VTE Core Measure Inpt VTE Proph given/why not?: Unfractionated heparin SQ <Electronically signed by Martine Mcadams M.D.> Additional Copies To Devon Biggs D.OOscar
[2017-05-10] MEDS ORDERED: LSX40 PO (14:03)
[2017-05-18] MEDS ORDERED: THYR1TAB PO (14:34)
[2017-05-29] MEDS ORDERED: FRS/40 PO ×2 (14:34→18:44)
[2017-05-29] MEDS ORDERED: VNTHFA/IN INH (18:44)
[2017-05-29] MEDS ORDERED: AMPH10TA2 PO (18:44)
[2017-05-29] MEDS ORDERED: LVMI SC (18:44)
[2017-05-29] MEDS ORDERED: METO25TA56 PO (18:44)
[2017-05-29] MEDS ORDERED: AMPH30CA3 PO (18:44)
[2017-05-29] MEDS ORDERED: DLC5 PO (18:44)
[2017-06-05] MEDS ORDERED: LVQ750 PO (12:52)
== END 2017-03-02 14:50 | disposition home or self-care (01) | DRG 291 ==
LOC: C.EDB 11:23 → C.2T 15:55 → ENRESERV 16:14
PROVIDERS: ADMIT Internal Medicine; ATTEND Internal Medicine
DX: I50.31 Acute diastolic (congestive) heart failure (principal); J18.9 Pneumonia, unspecified organism; N17.9 Acute kidney failure, unspecified; I13.0 Hypertensive heart and chronic kidney disease with heart failure and stage 1 through stage 4 chronic kidney disease, or unspecified chronic kidney disease; I25.10 Atherosclerotic heart disease of native coronary artery without angina pectoris; I25.5 Ischemic cardiomyopathy; F17.200 Nicotine dependence, unspecified, uncomplicated; N18.3 Chronic kidney disease, stage 3 (moderate); E11.43 Type 2 diabetes mellitus with diabetic autonomic (poly)neuropathy; E78.5 Hyperlipidemia, unspecified; K21.9 Gastro-esophageal reflux disease without esophagitis; E03.9 Hypothyroidism, unspecified; F90.9 Attention-deficit hyperactivity disorder, unspecified type; F31.9 Bipolar disorder, unspecified; H40.9 Unspecified glaucoma; Z79.4 Long term (current) use of insulin; Z82.49 Family history of ischemic heart disease and other diseases of the circulatory system; Z95.1 Presence of aortocoronary bypass graft; Z79.82 Long term (current) use of aspirin; E10.43 Type 1 diabetes mellitus with diabetic autonomic (poly)neuropathy; E10.22 Type 1 diabetes mellitus with diabetic chronic kidney disease; E10.319 Type 1 diabetes mellitus with unspecified diabetic retinopathy without macular edema; E10.40 Type 1 diabetes mellitus with diabetic neuropathy, unspecified; D64.9 Anemia, unspecified

== ENCOUNTER → 2017-03-25 | Outpatient (CLI) | payer OTHER ==
[~2017-03-25] MED LIST changes: -BMX1 PO; +DXY100 PO; +FRS/40 PO; -LIOT5TAB9 PO; +LSX40 PO; +LVQ750 PO; +METO25TA56 PO; +METO5TAB25 PO; +THY/120 PO; +TORS20TA2 PO; +VNTHFA/IN INH
--- NOTE | 2017-03-26 05:54 | SPLIT NIGHT TECHNICIAN REPORT ---
[facility] Split Night Polysomnogram - Marketing Program Manager Report Study date: 03/25/2017 Referring Physician: Matty BERKOWITZ M.D. Name: ROSADOGRECIA Marketing Program Manager: Jitendra Watt RPSANALI. Date of : 1965 Height: 52 years, Height 5' 7" Sex: Female Weight: 187 lbs Age: 52 Neck Circum: 15 inches BMI: Medications: 29.29 WP THYROID 65 MG, ATIVAN 1 MG, ZANTAC 150 MG, ZAROXOLYN 5 MG, ZOFRAN 8 MG, DEMADEX 20 MG, LINZESS 145 MCG, PROTONIX 40 MG, PROVENTIL HFA 108, TRINTELLIX 10 MG, LOPRESSOR 25 MG, CYTOMEL 5 MCG, LEVEMIR, REGLAN 10 MG, INSUILIN ASPART, ADDERALL 10 MG, LORATADINE 10 MG, DULCOLAX 5 MG, ASPIRIN 81 MG, VITAMIN D Patient History PATIENT HAS HISTORY OF HEART FAILURE, NEUROPATHY, TYPE I DM WITH RETINOPATHY AND DIABETES. SHE HAS HISTORY OF FATIGUE, LOW ENERGY AND EXCESSIVE DAYTIME SLEEPINESS. SHE IS HERE TODAY FOR AN EVALUATION OF SUGEY. ESS = 16 RM 5 Parameters Monitored NPSG: E1-M2, E2-M1, Fp1-M2, Fp2-M1, F3-M2, F4-M2, F4-M1, C3-M2, C4-M2, C4-M1, O1-M2, O2-M2, O2-M1, T3-M2, T4-M1, P3-M2, P4-M1, CHIN1, CHIN2, HR, EKG, Legs, PFLOW, SNOR, FLOW, CFLOW, Tidal Volume, THOR, ABDO, SpO2, PLTH, CPRESS, ETCO2 Wave, ETCO2, pH SLEEP SUMMARY DATA DIAGNOSTIC TREATMENT Lights Out: 10:38:40 PM 1:50:10 AM Lights On: 1:42:40 AM 5:03:10 AM Total Recording Time (TRT): 184.5 min. 193.5 min. Total Sleep Time (TST): 133.0 min. 141.5 min. NREM Time: 113.0 min. 123.0 min. REM Time: 20.0 min. 18.5 min. Sleep Period Time (SPT): 138.0 min. 172.5 min. Sleep Efficiency (SE): 72 % 73 % Sleep Latency: 46.0 min. 4.0 min. Arousal Index: 12.6 14.0 PAP Treatment Levels: 4, 5, 7, 8, 9 * Optimal Pressure(s) SLEEP STAGING DATA DIAGNOSTIC TREATMENT Duration (min) TST % Duration (min) TST % Stage Wake: 51.0 min. -- 52.0 min. -- WASO: 5.0 min. -- 31.0 min. -- NREM: 113.0 min. 85 % 123.0 min. 87 % Stage N1: 9.5 min. 7 % 24.0 min. 17 % Stage N2: 83.0 min. 62 % 84.0 min. 59 % Stage N3: 20.5 min. 15 % 15.0 min. 11 % REM: 20.0 min. 15 % 18.5 min. 13 % POSITIONAL DATA Event Count Index Event Count Index Supine: 53 115.6 34 13.1 Supine NREM: 53 115.6 33 14.6 Supine REM: N/A N/A 1 3 Non-Supine: 24 13.6 N/A N/A Non-Supine NREM: 15 10.5 N/A N/A Non-Supine REM: 9 27.0 N/A N/A AROUSAL SUMMARY DATA: Event Count Index Event Count Index Apnea Arousals: 1 4.1 0 0.4 Hypopnea Arousals: 9 4.1 7 3.0 Snore Arousals: 0 0.0 0 0.0 PLM Arousals: 0 0.0 0 0.0 Non-Specific Arousals: 17 7.7 25 10.6 Total Arousals: 28 12.6 33 14.0 MYOCLONUS (PLM) Event Count Index Event Count Index PLM: 0 0.0 0 0.0 PLM AROUSAL: 0 0.0 0 0.0 PLM W/O AROUSAL 0 0.0 0 0.0 PLM W/RESP EVENT 0 0.0 0 0.0 MYOCLONUS (PLM) Event Count Index Event Count Index LM: 1 3.2 0 0.0 LM AROUSAL: 1 0.5 0 0.0 LM W/O AROUSAL LM W/RESP EVENT LM NON SPECIFIC 4 1.8 0 0.0 HEART RATE DATA DIAGNOSTIC TREATMENT Sleep (bpm): 76 71 REM (bpm): 83 89 NREM (bpm): 83 89 Tachycardia Count: 0 0 Tachycardia Duration: 0.00 0 Bradycardia Count: 0 0 Bradycardia Duration: 0.00 0 DIAGNOSTIC PORTION TREATMENT PORTION RESPIRATORY DATA Event Count Index Event Count Index AHI: -- 34.7 -- 13.1 RDI: -- 34.7 -- 14 Obstructive Apnea: 0 0.0 0 0.0 Central Apnea: 9 4.1 1 0.4 Mixed Apnea: 0 0.0 0 0.0 Hypopnea: 68 30.7 30 12.7 RERA: 0 0.0 3 1.3 Total Apneas: 9 4.1 1 0.4 RESPIRATORY DATA REM NREM SLEEP REM NREM SLEEP Supine Position: Obstructive Apneas: N/A 0 0 0 0 0 Central Apneas: N/A 9 9 0 1 1 Mixed Apneas: N/A 0 0 0 0 0 Hypopneas: N/A 44 44 1 29 30 RERA N/A 0 0 0 3 3 Total Supine Events: N/A 53 53 1 33 34 Supine AHI: N/A 115.6 115.6 3 14.6 13.1 Supine RDI: N/A 115.6 115.6 3.2 16.1 14.4 REM NREM SLEEP REM NREM SLEEP Non-Supine Position: Obstructive Apneas: 0 0 0 N/A N/A N/A Central Apneas: 0 0 0 N/A N/A N/A Mixed Apneas: 0 0 0 N/A N/A N/A Hypopneas: 9 15 24 N/A N/A N/A RERA 0 0 0 N/A N/A N/A Total Supine Events: 9 15 24 N/A N/A N/A Supine AHI: 27.0 10.5 13.6 N/A N/A N/A Supine RDI: 27.0 10.5 13.6 N/A N/A N/A OXYGEN DESTAURATION DATA: Event Count Index Event Count Index REM Desaturations: 10 30.0 1 3.2 NREM Desaturations: 68 36.1 34 16.6 SNORE DATA DIAGNOSTIC TREATMENT Snore Time: 0.2 1:54:10 AM Snore TST%: 0 0 Snore Arousal Count: 0 0 Snore Arousal Index: 0.0 0.0 Desaturation Event Summary: Minimum %SpO2 Event Count Mean/Min/Max Duration(sec.) Desaturation Index % Time In Bed > 90 8 20.2 / 4.3 / 35.0 7.7 16.5 86 - 90 123 16.9 / 4.3 / 51.5 46.0 42.6 81 - 85 55 16.2 / 8.3 / 51.5 23.4 37.4 76 - 80 0 N/A 0.0 2.7 71 - 75 0 N/A 0.0 0.9 66 - 70 0 N/A 0.0 0.0 61 - 65 0 N/A 0.0 0.0 56 - 60 0 N/A 0.0 0.0 51 - 55 0 N/A 0.0 0.0 < 50 0 N/A 0.0 0.0 OXYGEN SATURATION DATA DIAGNOSTIC TREATMENT SpO2 Mean Sleep: 83 % 89 % SpO2 Mean REM: 83 % 89 % SpO2 Mean NREM: 83 % 89 % SpO2 Minimum Sleep: 72 % 82 % SpO2 Minimum REM: 75 % 86 % SpO2 Minimum NREM: 72 % 82 % Time Below 90% (TST): 133.0 83.7 Time Below 88% (TST): 128.1 25.4 Total REM NREM Awake <50% 0.0 min. 0.0 min. 0.0 min. 0.0 min. 51 - 60% 0.0 min. 0.0 min. 0.0 min. 0.0 min. 61 - 70% 0.0 min. 0.0 min. 0.0 min. 0.0 min. 71 - 80% 13.3 min. 1.9 min. 10.1 min. 1.3 min. 81 - 90% 301.3 min. 35.1 min. 204.6 min. 61.7 min. 91 - 100% 62.0 min. 1.5 min. 21.4 min. 39.2 min. Average 87 86 86 88 Minimum SpO2 72 75 72 75 Desaturation Event Index 23.6 17.1 25.9 22.2 # Desat. Events below 89% 146 11 99 36 Time(%) with Saturation below 89% 61.4 6.3 41.8 13.4 Time(min.) with Saturation below 89% 231.4 23.6 157.5 50.3 Recording Marketing Program Manager Comments: Mrs. Rosado slept in the right and supine positions. No cardiac arrhythmia noted. Leg movements noted. No bruxism noted. Snoring was noted and scored as a 1 on a scale of 1 through 5. (0=no snoring, 5=snoring loud enough to be heard through a closed door or down the ramirez way) At 1: 42 am Mrs. Rosado has met specific Split-Night criteria during the diagnostic portion of this study. CPAP was initiated at +4 CMH2O and up-titrated to an optimal level of +9CMH2O, which nearly eliminated all respiratory events and snoring. A Resmed mirage fx nasal mask was used during titration Mrs. Rosado awoke to use the restroom 0 times during the night. Mrs. Rosado stated I slept as well as I do when I am in my own bed. Around 4:35 am I added 1l/min of supplemental oxygen due to the patient's oxygen level reading 88% or lower for at least 5 minutes while having an AHI under 5/hr for at least 2 hours at the pressure of 9cwp. The final report will be interpreted and signed by a sleep physician. The completed physician report will then be placed in the patient medical record. Therapy Event: Therapy (cm H20) 0 4 5 7 8 9 Total Time at Pressure (min.) 184.0 13.3 6.9 7.7 11.8 153.3 TST at Pressure (min.) 133.0 8.3 4.9 7.2 11.8 109.3 # Periods 1 1 1 1 1 1 Sleep Onset (min.) 46.0 4.0 0.0 0.0 0.0 0.0 REM Onset (min.) 131.5 N/A N/A N/A N/A 91.8 Sleep Efficiency % 72 62 70 93 100 71 Wakefulness (%) 27.7 37.7 29.1 6.5 0.0 28.7 Wakefulness (min.) 51.0 5.0 2.0 0.5 0.0 44.0 NREM 1 (%) 5.2 62.3 47.0 25.8 42.3 3.6 NREM 1 (min.) 9.5 8.3 3.2 2.0 5.0 5.5 NREM 2 (%) 45.1 0.0 23.9 67.7 57.7 45.9 NREM 2 (min.) 83.0 0.0 1.6 5.2 6.8 70.3 NREM 3 (%) 11.1 0.0 0.0 0.0 0.0 9.8 NREM 3 (min.) 20.5 0.0 0.0 0.0 0.0 15.0 REM (%) 10.9 0.0 0.0 0.0 0.0 12.1 REM (min.) 20.0 0.0 0.0 0.0 0.0 18.5 # Arousals 28 11 4 4 8 6 Arousal Index 12.6 79.8 49.2 33.1 40.6 3.3 # Snore 9 0 0 0 0 1 Snore Index 4.1 0.0 0.0 0.0 0.0 0.5 AHI 34.7 58.1 98.4 58.0 30.4 1.1 AHI Supine 115.6 58.1 98.4 58.0 30.4 1.1 AHI Non-Supine 13.6 N/A N/A N/A N/A N/A NREM AHI 36.1 58.1 98.4 58.0 30.4 0.7 REM AHI 27.0 N/A N/A N/A N/A 3.2 RDI 34.7 58.1 98.4 58.0 45.6 1.1 # Obstructive 0 0 0 0 0 0 # Central Ap 9 0 0 0 1 0 # Mixed 0 0 0 0 0 0 # Hypopneas 68 8 8 7 5 2 RERAS 0 0 0 0 3 0 Total Respiratory Events 77 8 8 7 9 2 Time Below SpO2 89.00% (min.) 131.1 7.8 3.6 6.4 8.2 24.0 Mean NREM SpO2 (%) 83 86 86 87 88 89 Mean REM SpO2 (%) 83 N/A N/A N/A N/A 89 Mean Sleep SpO2 (%) 83 86 86 87 88 89 Min NREM SpO2 (%) 72 82 82 84 83 86 Min REM SpO2 (%) 75 N/A N/A N/A N/A 86 Position Supine (min.) 27.5 8.3 4.9 7.2 11.8 109.3 Position Non-supine (min.) 105.5 0.0 0.0 0.0 0.0 0.0 LM Index Sleep 3.2 0.0 0.0 0.0 0.0 0.0 LM Index NREM 1.6 0.0 0.0 0.0 0.0 0.0 LM Index REM 12.0 N/A N/A N/A N/A 0.0 Mean Heart Rate (bpm) 76 74 73 73 73 71 Min Heart Rate (bpm) 69 73 72 72 71 69
--- NOTE | 2017-04-15 18:01 | POLYSOMNOGRAPH REPORT ---
REFERRING PERSON: Dr. Vickie Truong. HORSE FARM MANAGER: Jitendra Watt. Ms. Zhang is a 52-year-old female with a history of type 1 diabetes, nephropathy, neuropathy and retinopathy. She has a history of heart failure. Her A[place]on sleepiness scale score on the evening of this study is 16. BMI is 29.29. Following the technical and digital specifications of the [place] [employer] (AASM) a standard diagnostic polysomnogram was performed monitoring EEG, EOG, EMG (chin and leg deviations), oxygen saturation, body position, digital video, respiratory effort and airflow. The sleep Stage and event scoring was based on the AASM Manual for the Scoring of Sleep and Associated Events 2007 edition. Apneas are defined as a drop in the peak thermal sensor excursion by >90% of baseline for at least 10 seconds. Hypopneas were scored using the 4% oxygen desaturation rule (4A-Medicare) and a decrease in the nasal pressure excursions by >30% of baseline for at least 10 seconds. Respiratory effort-related arousal (RERA's) is defined as a sequence of breaths lasting at least 10 seconds characterized by increasing respiratory effort or flattening of the nasal pressure waveform leading to an arousal from sleep when the sequence of breaths does not meet criteria for an apnea or hypopnea. Apnea Hypopnea index (AHI) is defined as the number of apneas and hypopneas occurring in an hour of sleep. Respiratory disturbance index (RDI) is defined as the number of apneas, hypopneas, and RERA's occurring in an hour of sleep. This patient did qualify for a split night sleep study. She was observed for 133 minutes of sleep time. During that time, she had 7% N1 sleep, 62% N2 sleep, and 15% N3 sleep. There were 28 cortical arousals from sleep. 17 of these arousals were nonspecific and 10 were due to respiratory events. There were no periodic limb movements during observation. Mean saturation was low at 83%. With respiratory event, her saturations dropped to 72%. There were no obstructive, 9 central and no mixed apnea. There were 68 hypopnea. Pretreatment apnea-hypopnea index was 34 consistent with severe sleep apnea. Most of these hypopneic events were obstructive. Therefore, at 01:45 a.m., this patient was started on CPAP therapy. She chose a ResMed Mirage FX nasal mask for her titration. She was titrated over the course of the night from a CPAP pressure of 4 to a CPAP pressure of 9. She was observed on a pressure of 9 for 109.3 minutes of sleep time. AHI and RDI on this pressure were both 1.1. Her saturations remained low despite adequate treatment of her sleep disordered breathing and therefore, at 04:35 a.m., this patient was started on 1 liter of supplemental oxygen to address this hypoxemia. IMPRESSION AND PLAN: 1. Successful split night sleep study in this patient with severe sleep apnea and very significant nocturnal hypoxemia. I would recommend that this patient be started on CPAP at a pressure of 9. A download from her machine can be reviewed in 1 month both to check compliance as well as AHI and further pressure adjustments can occur at that time. 2. Additionally, this patient should be started on 1 liter of supplemental oxygen for hypoxemia that was not resolved with the treatment of sleep disordered breathing. [facility]
== END | disposition home or self-care (01) ==
LOC: C.NEUR 21:00
PROVIDERS: ATTEND Family Medicine
DX: G47.30 Sleep apnea, unspecified (principal); R06.83 Snoring; I50.42 Chronic combined systolic (congestive) and diastolic (congestive) heart failure; G47.10 Hypersomnia, unspecified

== ENCOUNTER 2017-05-07 15:48 | Inpatient (IN) | payer OTHER ==
[~2017-05-07] VITALS: Ht 170.2 cm; Wt 84.9 kg
[~2017-05-07 15:48] MED LIST changes: -FRS/40 PO; -LSX40 PO; -LVQ750 PO; -METO25TA56 PO; -METO5TAB25 PO; -THYR1TAB PO; -VNTHFA/IN INH
--- NOTE | 2017-05-07 16:59 | EMERGENCY ROOM VISIT NOTE ---
History Report prepared by Millie: Dk Radford Under the Supervision of: Dr. Julián Gomez M.D. First contact with patient: 16:44 Chief Complaint: SHORTNESS OF BREATH Stated Complaint: SOB, CHF, KIDNEY FAILURE Nursing Triage Summary: Pt presents with IV in left hand for IV Lasix. States it has been in for 3 days , placed by sister who is a RN. Pt reports CHF x 3 months, now having kidney failure. SOB, weak, tired. History of Present Illness The patient is a 52 year old female who presents to the Emergency Room with complaints of worsening shortness of breath that started over the past few days. She says that she has been dealing with CHF and kidney failure for the past 3 months, and has been seen here twice. The patient states that in December she had a 2 week time span where she gained 20 pounds. She notes that she has been following up with Dr. Castañeda of [facility]ology. The patient says that she has been on IV Lasix the past 5 days ranging from 80 to 100 mg per day, and has gained 3 pounds. She says that she has been having continued decreased urine output the past few days. The patient also notes weakness, leg swelling and nausea. She denies any chest pain, fevers, or recent falls or trauma. She states that she saw her doctor and had blood work today. Her potassium was 5.1, her BUN was 53, and her creatinine was 2.3. The patient notes that her baseline level creatinine is 1.6, and her baseline level BUN is around 30. She takes 2 baby aspirin per day. The patient states that she is diabetic, and her sugars have been going up and down recently. Source of History: patient Onset: Past few days Position: other (global - shortness of breath) Timing: worsening Associated Symptoms: + nausea, + urinary symptoms (decreased urine output), + weakness, No fevers, No chest pain Note: Associated symptoms: Leg swelling. Denies recent falls or trauma. Review of Systems See HPI for pertinent positives & negatives. A total of 10 systems reviewed and were otherwise negative. Past Medical & Surgical Medical Problems: (1) ADD (attention deficit disorder) (2) Anxiety (3) CAD (coronary artery disease) (4) CHF exacerbation (5) CKD (chronic kidney disease) stage 3, GFR 30-59 ml/min (6) Depression (7) Diabetes mellitus type 1 (8) Dyslipidemia (9) GERD (gastroesophageal reflux disease) (10) Glaucoma (11) HTN (hypertension) (12) Hypothyroidism (13) Shortness of breath (14) Tobacco abuse Surgical Problems: (1) H/O nasal septoplasty (2) History of section (3) S/P CABG x 2 Old medical records were reviewed. Nurse's notes were reviewed and I agree with. Family History FH: CAD (coronary artery disease) FATHER (MA at age 47, CABG x 4 ) Social History Smoking Status: Current Every Day Smoker Alcohol Use: none Housing Status: lives with family Current/Historical Medications Scheduled Acetaminophen (Tylenol), 1,000 MG PO QID Amphetamine-Dextroamphetamine 10MG (Adderall 10MG), 10 MG PO BID Amphetamine-Dextroamphetamine 30MG (Adderall Xr 30MG), 30 MG PO BID Aspirin (Aspirin Ec), 162 MG PO HS Biotin (Biotin 5000), 5 MG PO QPM Bisacodyl (Bisacodyl EC), 15 MG PO HS Cholecalciferol (D-5000), 5,000 UNITS PO DAILY Cranberry (Vaccinium Macrocarp (Cranberry Extract), 500 MG PO QAM Doxycycline Hyclate (Doxycycline Hyclate), 100 MG PO BID Insulin Aspart (Novolog), 1 UNIT SC AC Insulin Detemir (Levemir), 16 UNITS SC BID Linaclotide (Linzess), 145 MCG PO QAM Loratadine (Claritin), 10 MG PO QAM Lorazepam (Lorazepam), 1 MG PO HS Metoclopramide Hcl (Reglan), 10 MG PO QID Metoprolol Tartrate (Lopressor) (Lopressor), 25 MG PO BID Ondansetron (Ondansetron HCl), 8 MG PO TID Pantoprazole (Protonix), 40 MG PO BID Ranitidine (Zantac), 150 MG PO BID Thyroid ([place] Thyroid), 1 TAB PO DAILY Torsemide (Demadex), 20 MG PO DAILY Travoprost (Travatan Z), 1 DROPS OP HS Vortioxetine HBr (Trintellix), 30 MG PO QAM Scheduled PRN Olopatadine Hydrochloride (Pataday), 1 DROPS OPB DAILY PRN for prn Allergies Coded Allergies: Penicillins (Verified Allergy, Intermediate, BLOTCHY SKIN/ ITCHY, 02/28/17) Vancomycin (Unverified Allergy, Intermediate, SHORTNESS OF BREATH, 02/28/17 ) Clopidogrel (Verified Allergy, Mild, rash, 02/28/17) rash due to Plavix or ertapenem Ertapenem (Verified Allergy, Mild, rash, 02/28/17) rash due to Plavix or ertapenem? Cephalosporins (Verified Allergy, Unknown, CECLOR-UNKNOWN, 02/28/17) Erythromycin (Unverified Allergy, Unknown, FROM H AND P-RASH, 02/28/17) Statins (Unverified Allergy, Unknown, MYALGIA, 02/28/17) Codeine (Verified Adverse Reaction, Unknown, VOMITING, 02/28/17) Nitrofurantoin (Unverified Adverse Reaction, Unknown, vomiting, 02/28/17) Pregabalin (Unverified Adverse Reaction, Unknown, VERY EMOTIONAL CRYING, ) Physical Exam Vital Signs Date Time Temp Pulse Resp B/P (MAP) Pulse Ox O2 Delivery O2 Flow Rate FiO2 05/07/17 19:55 87 20 164/78 97 05/07/17 18:00 84 20 160/80 97 Room Air 05/07/17 15:53 36.7 92 18 123/60 96 Room Air Physical Exam General: Well developed well nourished non ill-appearing middle aged female in no acute distress, breathing comfortably on room air. Normal speech HEENT: Normal cephalic atraumatic. Pupils are equal round and reactive to light. Extraocular movements are intact. Oropharynx is pink with moist mucous membranes. No swelling of the mouth lips or tongue. Neck: Supple with a midline trachea. No meningeal signs or stiffness, no JVD or bruits. No Stridor. Chest: Clear to auscultation bilaterally. No wheezes or rhonchi. No increased work of breathing. Heart: regular rate and rhythm. Abdomen: Soft nontender, nondistended without rebound guarding or rigidity. Extremities: 1+ pitting edema bilaterally. Braces on both lower extremities. No cyanosis or clubbing. Spine/Back. Non tender to palpation. No CVA tenderness Skin: Good turgor without rashes. Neurologic exam: Cranial nerves two through 12 are intact. Motor and sensation are intact and symmetrical throughout. Medical Decision & Procedures ER Provider Diagnostic Interpretation: X-ray results as stated below per interpretation by me and the radiologist: CHEST ONE VIEW PORTABLE HISTORY: 52 years-old Female CHEST PAIN acute atypical chest pain. Initial exam. COMPARISON: Portable chest radiograph 02/28/2017 TECHNIQUE: Portable upright AP view of the chest FINDINGS: Cardiac silhouette is moderately enlarged. Prior median sternotomy. There is no pneumothorax or pleural effusion. There is improved aeration of the bilateral lung bases with persistent trace left costophrenic angle blunting and patchy subsegmental left basilar opacity. There is no overt pulmonary edema. Bones are grossly intact. IMPRESSION: 1. Cardiomegaly without overt pulmonary edema. 2. Improved aeration of the bilateral lung bases from prior study with persistent subsegmental left basilar opacity suggesting atelectasis, possibly with trace pleural effusion. The above report was generated using voice recognition software. It may contain grammatical, syntax or spelling errors. Electronically signed by: Juan Mejia M.D. 05/07/2017 5:12 PM Dictated Date/Time: 05/07/2017 5:10 PM Laboratory Results 05/07/17 18:39 Red Blood Count 3.55, Mean Corpuscular Volume 94.6, Mean Corpuscular Hemoglobin 28.7, Mean Corpuscular Hemoglobin Concent 30.4, Mean Platelet Volume 9.4, Neutrophils (%) (Auto) 65.4, Lymphocytes (%) (Auto) 25.2, Monocytes (%) (Auto) 4.6, Eosinophils (%) (Auto) 4.0, Basophils (%) (Auto) 0.5, Neutrophils # (Auto) 6.75, Lymphocytes # (Auto) 2.60, Monocytes # (Auto) 0.47, Eosinophils # (Auto) 0.41, Basophils # (Auto) 0.05 05/07/17 18:39 Test 05/07/17 18:39 White Blood Count 10.31 K/uL (4.8-10.8) Red Blood Count 3.55 M/uL (4.2-5.4) Hemoglobin 10.2 g/dL (12.0-16.0) Hematocrit 33.6 % (37-47) Mean Corpuscular Volume 94.6 fL (80-100) Mean Corpuscular Hemoglobin 28.7 pg (25-34) Mean Corpuscular Hemoglobin Concent 30.4 g/dl (32-36) Platelet Count 254 K/uL (130-400) Mean Platelet Volume 9.4 fL (7.4-10.4) Neutrophils (%) (Auto) 65.4 % Lymphocytes (%) (Auto) 25.2 % Monocytes (%) (Auto) 4.6 % Eosinophils (%) (Auto) 4.0 % Basophils (%) (Auto) 0.5 % Neutrophils # (Auto) 6.75 K/uL (1.4-6.5) Lymphocytes # (Auto) 2.60 K/uL (1.2-3.4) Monocytes # (Auto) 0.47 K/uL (0.11-0.59) Eosinophils # (Auto) 0.41 K/uL (0-0.5) Basophils # (Auto) 0.05 K/uL (0-0.2) RDW Standard Deviation 43.5 fL (36.4-46.3) RDW Coefficient of Variation 12.5 % (11.5-14.5) Immature Granulocyte % (Auto) 0.3 % Immature Granulocyte # (Auto) 0.03 K/uL (0.00-0.02) Anion Gap 9.0 mmol/L (3-11) Est Creatinine Clear Calc Drug Dose 32.0 ml/min Estimated GFR () 27.2 Estimated GFR (Non- 23.5 BUN/Creatinine Ratio 24.3 (10-20) Calcium Level 9.2 mg/dl (8.5-10.1) Total Bilirubin 0.2 mg/dl (0.2-1) Direct Bilirubin < 0.1 mg/dl (0-0.2) Aspartate Amino Transf (AST/SGOT) 24 U/L (15-37) Alanine Aminotransferase (ALT/SGPT) 60 U/L (12-78) Alkaline Phosphatase 149 U/L (45-117) Total Creatine Kinase 186 U/L (26-192) Creatine Kinase MB 6.4 ng/ml (0.5-3.6) Creatine Kinase MB Ratio 3.4 (0-3.0) Troponin I 0.161 ng/ml (0-0.045) Pro-B-Type Natriuretic Peptide 75184 pg/ml (0-900) Total Protein 6.8 gm/dl (6.4-8.2) Albumin 3.7 gm/dl (3.4-5.0) Lipase 122 U/L (73-393) Hepatitis C Antibody Screen NEG (NEG) Laboratory studies as stated above per my review. ECG Indication: SOB/dyspnea Rate (beats per minute): 85 Rhythm: normal sinus Findings: left axis deviation, other (RBBB, anterior and lateral ST and T-wave abnormalities) Change: no significant change (compared to March 01 2017) ED Course 164: Past medical records reviewed. The patient was evaluated in room B6, and a complete history and physical examination were performed. 1845: I reevaluated the patient and she is resting comfortably. 2013: Upon reevaluation, the patient is resting. I discussed the results and treatment plan with the patient. She verbalized agreement of the treatment plan. The patient will be evaluated for further management. 2014: I discussed the patient with Dr. Ivan Belle assistant program manager - he will evaluate the patient for further treatment. Medical Decision Differentials include but are not limited to: CHF, acute coronary syndrome, arrhythmia, renal failure, electrolyte or metabolic abnormality. This patient comes in as described above. She was placed in room B6. She is here for treatment and evaluation of CHF. She has a long history of CHF and renal insufficiency and they've been treating her over the weekend at home with IV Lasix and feel that she is not getting any better. 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 She looks well on exam. She does have some edema in her abdomen and legs but does not appear to be in acute distress. IV access was established. Chest x-ray shows no significant pulmonary edema but there is some cardiomegaly. EKG shows no acute ischemic changes . She does have some moderate renal insufficiency with a creatinine 2.3. She will be admitted for further treatment and evaluation of her CHF. Medication Reconcilliation Current Medication List: was personally reviewed by me Blood Pressure Screening Patient's blood pressure: Normal blood pressure Consults Time Called: 2013 Consulting Physician: Dr. Ivan Belle assistant program manager Returned Call: 2014 I discussed the patient with Dr. Ivan Belle assistant program manager - he will evaluate the patient for further treatment. Impression Primary Impression: Congestive heart failure Additional Impression: Renal insufficiency Scribe Attestation The scribe's documentation has been prepared under my direction and personally reviewed by me in its entirety. I confirm that the note above accurately reflects all work, treatment, procedures, and medical decision making performed by me. Departure Information Dispostion Being Evaluated By Hospitalist Referrals Devon Biggs D.O. (PCP) Patient Instructions My [facility] Problem Qualifiers
--- NOTE | 2017-05-07 17:13 | DIAGNOSTIC IMAGING REPORT ---
CHEST ONE VIEW PORTABLE HISTORY: 52 years-old Female CHEST PAIN acute atypical chest pain. Initial exam. COMPARISON: Portable chest radiograph 02/28/2017 TECHNIQUE: Portable upright AP view of the chest FINDINGS: Cardiac silhouette is moderately enlarged. Prior median sternotomy. There is no pneumothorax or pleural effusion. There is improved aeration of the bilateral lung bases with persistent trace left costophrenic angle blunting and patchy subsegmental left basilar opacity. There is no overt pulmonary edema. Bones are grossly intact. IMPRESSION: 1. Cardiomegaly without overt pulmonary edema. 2. Improved aeration of the bilateral lung bases from prior study with persistent subsegmental left basilar opacity suggesting atelectasis, possibly with trace pleural effusion. The above report was generated using voice recognition software. It may contain grammatical, syntax or spelling errors. Electronically signed by: Juan Mejia M.D. 05/07/2017 5:12 PM Dictated Date/Time: 05/07/2017 5:10 PM
[2017-05-07 18:50] LABS: BASO % 0.5 %; BASO ABS # 0.05 K/uL (0-0.2); COMPLETE YES; HEMATOCRIT 33.6 % (37-47); IG% 0.3 %; LYMPH % 25.2 %; MEAN CELL VOLUME 94.6 fL (80-100); MEAN CORPUSCULAR HEMOGLOBIN 28.7 pg (25-34); MEAN CORPUSCULAR HGB CONC 30.4 g/dl (32-36); MEAN PLATELET VOLUME 9.4 fL (7.4-10.4); MONO % 4.6 %; NEUT % 65.4 %; PLATELET COUNT 254 K/uL (130-400); RED BLOOD COUNT 3.55 M/uL (4.2-5.4); WHITE BLOOD COUNT 10.31 K/uL (4.8-10.8)
[2017-05-07 19:09] LABS: ALT/SGPT 60 U/L (12-78); BLOOD UREA NITROGEN 56 mg/dl (7-18); BUN/CREATININE RATIO 24.3 (10-20); CALCIUM 9.2 mg/dl (8.5-10.1); CARBON DIOXIDE 21 mmol/L (21-32); CHLORIDE 110 mmol/L (98-107); GLUCOSE 170 mg/dl (70-99); POTASSIUM 4.4 mmol/L (3.5-5.1); SODIUM 140 mmol/L (136-145)
[2017-05-07 19:14] LABS: ALKALINE PHOSPHATASE 149 U/L (45-117); AST/SGOT 24 U/L (15-37); CKMB/CK RATIO 3.4 (0-3.0)
[2017-05-07 19:55] VITALS: O2SAT 97
[2017-05-07] MEDS ORDERED: GLUCOSE 40% GEL 15 GM TUBE PO PRN (20:15)
[2017-05-07] MEDS ORDERED: GLUCOSE 10 TABS/TUBE PO PRN (20:15)
[2017-05-07] MEDS ORDERED: GLUCAGON FOR INJ 1 MG VIAL SQ PRN (20:15)
[2017-05-07] MEDS ORDERED: ACETAMINOPHEN 325 MG TAB PO PRN (20:15)
[2017-05-07] MEDS ORDERED: DEXTROSE 50% 50 ML SYR IV PRN (20:15)
[2017-05-07] MEDS ORDERED: IV FLUIDS COMPLETED PRN (20:30)
--- NOTE | 2017-05-07 20:44 | History and Physical ---
History & Physical Date & Time of Service: May 07, 2017 at 20:26 Chief Complaint: Sob, Chf, Kidney Failure Primary Care Physician: Devon Biggs D.O. History of Present Illness Source: patient, clinic records, hospital records 52 year old female with history of CHF Diastolic Type, CAD/CABG, HTN, DM on Insulin, CKD 3, presenting with exertional dyspnea, leg swelling and cough x few days. Follows with Dr. Biggs for Primary Care, Dr. Castañeda/WINNIE Self for CAD, Dr. Valencia for CKD 3. Patient follows with WINNIE Self for Cardiology as well. Per his notes, patient has been having leg edema, weight gain and dry cough for a few days. She was then placed on IV Lasix daily since May 01, 2017 to be received at the Cardiology Clinic. However, over the weekend, patient was not able to receive her IV Lasix as she did not have any IV access. She was then seen at the Cardiology Clinic today, Crea was found to be 2.1, Lasix IV was not given, and was sent to the ER for admission. At the ER, patient is hemodynamically stable. CXR does not suggest pulmonary edema and crea is 2.3. On exam, patient seen walking outside her room, comfortable. States she has been having chronic dyspnea on exertion, leg edema and dry cough for the past 3 months. Denies active shortness of breath, chest pain, dizziness, palpitations. Reports low urine output without diuretics. No other symptoms. Past Medical/Surgical History Medical Problems: (1) ADD (attention deficit disorder) Status: Chronic (2) Anxiety Status: Chronic (3) CAD (coronary artery disease) Permanent Comment: s/p CABG Status: Chronic (4) CKD (chronic kidney disease) stage 3, GFR 30-59 ml/min Status: Chronic (5) Depression Permanent Comment: TMS therapy Status: Chronic (6) Diabetes mellitus type 1 Status: Chronic (7) Dyslipidemia Status: Chronic (8) GERD (gastroesophageal reflux disease) Status: Chronic (9) Glaucoma Status: Chronic (10) HTN (hypertension) Status: Chronic (11) Hypothyroidism Status: Chronic (12) Tobacco abuse Status: Chronic Surgical Problems: (1) H/O nasal septoplasty Status: Resolved (2) History of section Status: Resolved (3) S/P CABG x 2 Permanent Comment: Jason Mayo 12/2012 Status: Resolved Family History FH: CAD (coronary artery disease) FATHER (DE at age 47, CABG x 4 ) Social History Smoking Status: Current Every Day Smoker Smokeless Tobacco Use: No Alcohol Use: none Drug Use: none Immunizations History of Influenza Vaccine: Yes Influenza Vaccine Date: Jul 22, 2016 History of Tetanus Vaccine?: Yes Tetanus Immunization Date: Nov 17, 2010 History of Pneumococcal: Yes Pneumococcal Date: Nov 28, 2005 History of Hepatitis B Vaccine: Yes Hepatitis Immunization Date: Feb 24, 2003 Multi-Drug Resistant Organisms History of MDRO: No Allergies Coded Allergies: Penicillins (Verified Allergy, Intermediate, BLOTCHY SKIN/ ITCHY, 02/28/17) Vancomycin (Unverified Allergy, Intermediate, SHORTNESS OF BREATH, 02/28/17 ) Clopidogrel (Verified Allergy, Mild, rash, 02/28/17) rash due to Plavix or ertapenem Ertapenem (Verified Allergy, Mild, rash, 02/28/17) rash due to Plavix or ertapenem? Cephalosporins (Verified Allergy, Unknown, CECLOR-UNKNOWN, 02/28/17) Erythromycin (Unverified Allergy, Unknown, FROM H AND P-RASH, 02/28/17) Statins (Unverified Allergy, Unknown, MYALGIA, 02/28/17) Codeine (Verified Adverse Reaction, Unknown, VOMITING, 02/28/17) Nitrofurantoin (Unverified Adverse Reaction, Unknown, vomiting, 02/28/17) Pregabalin (Unverified Adverse Reaction, Unknown, VERY EMOTIONAL CRYING, ) Home Medications Scheduled Acetaminophen (Tylenol), 1,000 MG PO QID Amphetamine-Dextroamphetamine 10MG (Adderall 10MG), 10 MG PO BID Amphetamine-Dextroamphetamine 30MG (Adderall Xr 30MG), 30 MG PO BID Aspirin (Aspirin Ec), 162 MG PO HS Biotin (Biotin 5000), 5 MG PO QPM Bisacodyl (Bisacodyl EC), 15 MG PO HS Cholecalciferol (D-5000), 5,000 UNITS PO DAILY Cranberry (Vaccinium Macrocarp (Cranberry Extract), 500 MG PO QAM Doxycycline Hyclate (Doxycycline Hyclate), 100 MG PO BID Insulin Aspart (Novolog), 1 UNIT SC AC Insulin Detemir (Levemir), 16 UNITS SC BID Linaclotide (Linzess), 145 MCG PO QAM Loratadine (Claritin), 10 MG PO QAM Lorazepam (Lorazepam), 1 MG PO HS Metoclopramide Hcl (Reglan), 10 MG PO QID Metoprolol Tartrate (Lopressor) (Lopressor), 25 MG PO BID Ondansetron (Ondansetron HCl), 8 MG PO TID Pantoprazole (Protonix), 40 MG PO BID Ranitidine (Zantac), 150 MG PO BID Thyroid ([place] Thyroid), 1 TAB PO DAILY Torsemide (Demadex), 20 MG PO DAILY Travoprost (Travatan Z), 1 DROPS OP HS Vortioxetine HBr (Trintellix), 30 MG PO QAM Scheduled PRN Olopatadine Hydrochloride (Pataday), 1 DROPS OPB DAILY PRN for prn Review of Systems Constitutional- no fever; no weight loss Eyes- no acute visual changes ENT- no sinus drainage; no pharyngitis Pulmonary- (+) as noted above Cardiac- (+) as noted above GI- no nausea, no vomiting, no diarrhea, no melena, no hematochezia - no dysuria, no hematuria Musculoskeletal- no arthralgias, no myalgias Derm- no rashes, no new skin lesions, no changing skin lesions Hematologic- no unusual bruising, no unusual bleeding Lymphatics- no adenopathy Endocrine- no polyuria or polydipsia; no heat or cold intolerance Neuro- no headaches, no focal neurologic symptoms Psych- no anxiety, no depression Physical Exam Vital Signs Date Time Temp Pulse Resp B/P (MAP) Pulse Ox O2 Delivery O2 Flow Rate FiO2 05/07/17 19:55 87 20 164/78 97 05/07/17 18:00 84 20 160/80 97 Room Air 05/07/17 15:53 36.7 92 18 123/60 96 Room Air General Appearance: WD/WN, no apparent distress Head: normocephalic, atraumatic Eyes: normal inspection, PERRL, sclerae normal ENT: normal ENT inspection, hearing grossly normal, pharynx normal Neck: supple, no adenopathy, thyroid normal, no JVD Respiratory/Chest: chest non-tender, lungs clear, normal breath sounds, no respiratory distress, no accessory muscle use Cardiovascular: regular rate, rhythm, no JVD, no murmur, normal peripheral pulses Abdomen/GI: normal bowel sounds, non tender, soft Back: normal inspection, no CVA tenderness Extremities/Musculoskelatal: no calf tenderness, + pertinent finding (grade 1 lower leg edema) Neurologic/Psych: garment folder II-XII nml as tested, no motor/sensory deficits (except for bilateral foot drop), alert, normal mood/affect, oriented x 3 Skin: normal color, warm/dry, no rash Lymphatic: no adenopathy Diagnostics Laboratory Results Results Past 24 Hours Test 05/07/17 16:50 05/07/17 18:39 Range/Units Creatine Kinase MB Ratio 3.4 0-3.0 White Blood Count 10.31 4.8-10.8 K/uL Red Blood Count 3.55 4.2-5.4 M/uL Hemoglobin 10.2 12.0-16.0 g/dL Hematocrit 33.6 37-47 % Mean Corpuscular Volume 94.6 80-100 fL Mean Corpuscular Hemoglobin 28.7 25-34 pg Mean Corpuscular Hemoglobin Concent 30.4 32-36 g/dl Platelet Count 254 130-400 K/uL Mean Platelet Volume 9.4 7.4-10.4 fL Neutrophils (%) (Auto) 65.4 % Lymphocytes (%) (Auto) 25.2 % Monocytes (%) (Auto) 4.6 % Eosinophils (%) (Auto) 4.0 % Basophils (%) (Auto) 0.5 % Neutrophils # (Auto) 6.75 1.4-6.5 K/uL Lymphocytes # (Auto) 2.60 1.2-3.4 K/uL Monocytes # (Auto) 0.47 0.11-0.59 K/uL Eosinophils # (Auto) 0.41 0-0.5 K/uL Basophils # (Auto) 0.05 0-0.2 K/uL RDW Standard Deviation 43.5 36.4-46.3 fL RDW Coefficient of Variation 12.5 11.5-14.5 % Immature Granulocyte % (Auto) 0.3 % Immature Granulocyte # (Auto) 0.03 0.00-0.02 K/uL Sodium Level 140 136-145 mmol/L Potassium Level 4.4 3.5-5.1 mmol/L Chloride Level 110 98-107 mmol/L Carbon Dioxide Level 21 21-32 mmol/L Anion Gap 9.0 3-11 mmol/L Blood Urea Nitrogen 56 7-18 mg/dl Creatinine 2.30 0.60-1.20 mg/dl Est Creatinine Clear Calc Drug Dose 32.0 ml/min Estimated GFR () 27.2 Estimated GFR (Non- 23.5 BUN/Creatinine Ratio 24.3 10-20 Random Glucose 170 70-99 mg/dl Calcium Level 9.2 8.5-10.1 mg/dl Total Bilirubin 0.2 0.2-1 mg/dl Direct Bilirubin < 0.1 0-0.2 mg/dl Aspartate Amino Transf (AST/SGOT) 24 15-37 U/L Alanine Aminotransferase (ALT/SGPT) 60 12-78 U/L Alkaline Phosphatase 149 45-117 U/L Total Creatine Kinase 186 26-192 U/L Creatine Kinase MB 6.4 0.5-3.6 ng/ml Pro-B-Type Natriuretic Peptide 62821 0-900 pg/ml Total Protein 6.8 6.4-8.2 gm/dl Albumin 3.7 3.4-5.0 gm/dl Lipase 122 73-393 U/L Diagnostic Radiology CXR IMPRESSION: 1. Cardiomegaly without overt pulmonary edema. 2. Improved aeration of the bilateral lung bases from prior study with persistent subsegmental left basilar opacity suggesting atelectasis, possibly with trace pleural effusion. EKG sinus rhythm, HR 85, new t wave inversions on the V1-V2, QTc 490 Impression Assessment and Plan 52 year old female with history of CHF Diastolic Type, CAD/CABG, HTN, DM on Insulin, CKD 3, presenting with exertional dyspnea, leg swelling and cough x few days. CHRONIC DIASTOLIC CHF - patient presents with persistent leg edema, weight gain despite attempts to administer IV Lasix as outpatient - not in respiratory distress, CXR no pulmonary edema crea 2.3 (baseline 2.1-2.3) - usually on PO Torsemide and Metolazone started on daily IV Lasix since 05/01/17 - will hold off on diuretics tonight unless symptomatic - will defer diuretic management to Cardiology and Nephrology in AM CAD/CABG - on Aspirin and Metoprolol - new t wave inversion on V1 and V2 follow cardiac markers update Echo DM Type 2 - on Levemir 16 units BID and ISS decrease to Levemir 10 units BID for now, titrate ISS ordered HISTORY OF GASTROPATHY - usually on Zofran and Reglan TID QTc 490, held above meds repeat EKG in Am CKD 3 - crea today is 2.3 baseline crea 2.1-2.3 - patient apparently was discharged from Dr. Valencia's practice per Cardiology notes Nephrology consult placed for Dr. Osborne ([facility]), per patient, WINNIE Self already communicated with Dr. Osborne HISTORY OF SUGEY - CPAP ordered DVT Prophylaxis Heparin SC q8h Full Code per discussion with patient Disposition anticipate d/c home with home health services when cleared by Cardiology and Nephrology VTE Prophylaxis VTE Risk Assessment Done? Y/N: Yes Risk Level: Moderate
[2017-05-07 20:54] VITALS: BMI 29.9
[2017-05-07 21:00] VITALS: BP 149/83; PULSE 93; TEMP 36.7; O2SAT 96
[2017-05-07] MEDS ORDERED: INSULIN DETEMIR FLEXPEN/FLEX TOUCH 100 UNITS/ML 3ML SC SCH (21:00)
[2017-05-07] MEDS ORDERED: METO25TA56 PO (22:05)
[2017-05-07] MEDS: INSULIN ASPART 100 UNITS/ML 3 ML PEN SC SCH (22:06)
[2017-05-07] MEDS: LORAZEPAM 1 MG TAB PO SCH (22:20)
[2017-05-07] MEDS: TRAVOPROST Z 0.004% OPH SOLN 2.5 ML BTL OP SCH (22:20)
[2017-05-07] MEDS: PANTOprazole SOD 40 MG TAB PO SCH (22:21)
[2017-05-07] MEDS: METOPROLOL TARTRATE 25 MG TAB PO SCH (22:21)
[2017-05-07] MEDS: RANITIDINE HCL 150 MG TAB PO SCH (22:21)
[2017-05-07] MEDS: ASPIRIN 81 MG ECTAB PO SCH (22:21)
[2017-05-07] MEDS: BISACODYL 5 MG TABEC PO SCH (22:22)
[2017-05-07 23:11] VITALS: BP 148/82; PULSE 85; TEMP 36.8; O2SAT 90
[2017-05-08] MEDS ORDERED: TRINTELLIX~ORDER AWAITING ACTION SCH
[2017-05-08] MEDS ORDERED: LINZESS~ORDER AWAITING ACTION SCH
[2017-05-08] MEDS ORDERED: ADDERALL 30 MG SCH ×2
[2017-05-08 00:53] LABS: CKMB/CK RATIO 3.4 (0-3.0)
[2017-05-08 03:46] VITALS: BP 126/79; PULSE 77; TEMP 37; O2SAT 95
[2017-05-08 06:44] LABS: BASO % 0.5 %; BASO ABS # 0.04 K/uL (0-0.2); COMPLETE YES; HEMATOCRIT 31.8 % (37-47); IG% 0.1 %; LYMPH % 34.9 %; LYMPH ABS # 2.89 K/uL (1.2-3.4); MEAN CELL VOLUME 93.5 fL (80-100); MEAN CORPUSCULAR HEMOGLOBIN 29.4 pg (25-34); MEAN CORPUSCULAR HGB CONC 31.4 g/dl (32-36); MEAN PLATELET VOLUME 9.1 fL (7.4-10.4); MONO % 6.9 %; NEUT % 53.6 %; PLATELET COUNT 242 K/uL (130-400); WHITE BLOOD COUNT 8.29 K/uL (4.8-10.8)
[2017-05-08 07:11] LABS: INR 0.9 (0.9-1.1)
[2017-05-08 07:16] VITALS: BP 127/72; PULSE 79; TEMP 37; O2SAT 94
[2017-05-08 07:17] LABS: BUN/CREATININE RATIO 28.1 (10-20); CALCIUM 8.8 mg/dl (8.5-10.1); CREATININE 1.8 mg/dl (0.60-1.20); POTASSIUM 4.5 mmol/L (3.5-5.1)
[2017-05-08] MEDS: INSULIN ASPART 100 UNITS/ML 3 ML PEN SC SCH ×4 (08:42→20:57)
[2017-05-08] MEDS: PATADAY~ORDER AWAITING ACTION SCH ×3 (08:43→15:23)
[2017-05-08] MEDS ORDERED: ADDERALL 30 MG PO SCH (09:00)
[2017-05-08] MEDS ORDERED: AMPHETAMINE-DEXTROAMPHETAMINE 30 MG CAP PO SCH (09:00)
[2017-05-08] MEDS ORDERED: PHARMACY GLYCEMIC MGMT CONSULT PRN (09:05)
[2017-05-08] MEDS: THYROID 65 MG PO SCH (10:00)
[2017-05-08] MEDS: VORTIOXETINE HBR 20 MG PO SCH (10:00)
[2017-05-08] MEDS: METOCLOPRAMIDE HCL 10 MG TAB PO SCH ×4 (10:01→21:00)
[2017-05-08] MEDS: LINACLOTIDE 145 MCG CAP PO SCH (10:01)
[2017-05-08] MEDS: METOPROLOL TARTRATE 25 MG TAB PO SCH ×2 (10:01→21:00)
[2017-05-08] MEDS: PANTOprazole SOD 40 MG TAB PO SCH ×2 (10:02→21:00)
[2017-05-08] MEDS: LORATADINE 10 MG TAB PO SCH (10:02)
[2017-05-08] MEDS: RANITIDINE HCL 150 MG TAB PO SCH ×2 (10:02→21:00)
[2017-05-08] MEDS: INSULIN DETEMIR FLEXPEN/FLEX TOUCH 100 UNITS/ML 3ML SC SCH ×2 (10:05→20:58)
--- NOTE | 2017-05-08 10:44 | Cardiology Consultation ---
Cardiology Consultation Date of Consultation: May 08, 2017 Requesting Physician: Ivan Attending Chainstitch Seat Joiner: Benny History of Present Illness History of Present Illness: Cindy Zhang is a complex 52 year old female who is being seen at the request of Dr. Love. Reason for consultation include diastolic congestive heart failure. Mrs. Zhang has been followed closely as an outpatient by Dr. Castañeda as well as the undersigned due to complaints of acute on chronic dyspnea, abdominal fullness/distention, lower extremity peripheral edema, and weight gain. Despite multiple daily doses of outpatient IV furosemide her symptoms have persisted and her weight has continued to increase. She notes a mild nonproductive cough. She has stable two pillow orthopnea without PND. In the absence of improvement despite outpatient treatment inpatient evaluation and treatment was advised. She was referred to the ER on 05/07/2017 and was admitted by Dr. Love. She was not given diuretics in the ER or on admission with diuretic management deferred to Cardiology and Nephrology. She has been utilizing CPAP 9 with 1 L/min supplemental oxygen QS since 2016. No chest pain. No palpitations. No lightheadedness, dizziness, near syncope, or true syncope. No epistaxis, hemoptysis, melena, hematochezia, or hematuria. Weaning off Adderall, currently on 30 mg/day. She continues to try to quit smoking. Followed by Psychiatry, transitioning from Dr. Pisano to Dr. Fields in the Fall. Past Medical/Surgical History Problem List: Past Medical/Surgical History: 1.Type I diabetes mellitus with triopathy, gastroparesis 2.Peripheral vascular disease 3.History of diabetic foot ulcer with osteomyelitis 4.Status post PTCA of the right popliteal artery 5.Status post excision of the right 5th metatarsal and debridement of the lateral malleolus with culture positive for strep and coag neg staph 6.Ischemic cardiomyopathy with past LVEF of 45%. 7.October 22, 2012 catheterization revealing 2 vessel CAD of the LAD and Circ. Specific angiography was right dominant. The RCA was a medium caliber vessel with moderate disease including a 30% mid RCA lesion. The LM was mildly diseased. The LAD was severely diseased including a 50% proximal LAD lesion, 80 % mid LAD lesion, 90% distal LAD lesion, and a 50% D1 lesion. The LCX was nondominant and severely diseased with an 80% OM1 lesion, 99% OM2 lesion, and an 80% mid LCX lesion, LVEDP elevated 8.Status post 01/05/2013 CABG with a SINHA to the proximal LAD, free KARO from the SINHA to the OM, and distal LAD endarterectomy with patch angioplasty. 9.Diastolic congestive heart failure felt to be secondary to diastolic dysfunction, right heart failure due to severe obstructive sleep apnea and underlying obstructive pulmonary disease. 10.History of ischemic cardiomyopathy status post CABG. EF normalized. 11.Chronic renal insufficiency 12.Anemia of chronic disease 13.Chronic tobacco abuse 14.Hypertension 15.Dyslipidemia. 16.GERD. Gastritis 17.Hypothyroidism 18.Depression. 19.Panic disorder. 20.Bipolar. 21.ADHA 22.Chronic sinusitis 23.Glaucoma 24.Bilateral cataracts 25. delivery 26.Repair of nasal septum 27.Sinus surgery 28.Removal endometrial tag 29.Right breast biopsy, benign 30.Colonoscopy with polypectomy Family History: Notable for premature CAD in her father. Paternal grandfather with a CVA. Social History: Smoker, currently 3/4 ppd. No significant alcohol. No illegal drug use. . 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 Family History FH: CAD (coronary artery disease) FATHER (CT at age 47, CABG x 4 ) Social History Smoking Status: Current Every Day Smoker Smokeless Tobacco Use: No Alcohol Use: none Drug Use: none Marital Status: Housing Status: lives with significant other Review Of Systems Prior attempts at resumption of low dose ACEI therapy x 3 were not well tolerated - hypotension, hyperkalemia, acute on chronic renal dysfunction Trial of Imdur (taken x 1 dose) resulted in excessive fatigue. Statin intolerance (tried 5 times) Complete Review of Systems is as stated above, negative, or noncontributory Allergies Coded Allergies: Penicillins (Verified Allergy, Intermediate, BLOTCHY SKIN/ ITCHY, 02/28/17) Vancomycin (Unverified Allergy, Intermediate, SHORTNESS OF BREATH, 02/28/17 ) Clopidogrel (Verified Allergy, Mild, rash, 02/28/17) rash due to Plavix or ertapenem Ertapenem (Verified Allergy, Mild, rash, 02/28/17) rash due to Plavix or ertapenem? Cephalosporins (Verified Allergy, Unknown, CECLOR-UNKNOWN, 02/28/17) Erythromycin (Unverified Allergy, Unknown, FROM H AND P-RASH, 02/28/17) Statins (Unverified Allergy, Unknown, MYALGIA, 02/28/17) Codeine (Verified Adverse Reaction, Unknown, VOMITING, 02/28/17) Nitrofurantoin (Unverified Adverse Reaction, Unknown, vomiting, 02/28/17) Pregabalin (Unverified Adverse Reaction, Unknown, VERY EMOTIONAL CRYING, ) Medications Reported Home Medications Medications Dose Route/Sig Max Daily Dose Days Date Category Dose Instructions Doxycycline Hyclate 100 Mg Cap 100 Mg PO BID 5 03/02/17 Rx [place] Thyroid (Thyroid) 120 Mg Tab 1 Tab PO DAILY 02/28/17 Reported Demadex (Torsemide) 20 Mg Tab 20 Mg PO DAILY 02/28/17 Reported Lopressor (Metoprolol Tartrate) 25 Mg Tab 25 Mg PO BID 11/16/16 Reported D-5000 (Cholecalciferol) 5,000 Unit Tab 5,000 Units PO DAILY 30 11/16/16 Reported Levemir (Insulin Detemir) 100 Units/Ml Inj 16 Units SC BID 11/16/16 Reported Ondansetron HCl (Ondansetron) 8 Mg Tab 8 Mg PO TID 11/16/16 Reported Travatan Z (Travoprost) 0.004 % Rodney 1 Drops OP HS 11/16/16 Reported Bisacodyl EC (Bisacodyl) 5 Mg Tabec 15 Mg PO HS 11/16/16 Reported Lorazepam 1 Mg Tab 1 Mg PO HS 11/16/16 Reported Novolog (Insulin Aspart) 100 Units/Ml Inj 1 Unit SC AC 11/16/16 Reported per sliding scale, 1:15 for carbs coverage, max 15 units; also uses correction factor 70mg/dL/unit for elevatations above 130 Cranberry Extract (Cranberry (Vaccinium Macrocarp) 250 Mg Tab 500 Mg PO QAM 11/05/16 Reported Tylenol (Acetaminophen) 500 Mg Tab 1,000 Mg PO QID 04/09/16 Reported Trintellix (Vortioxetine HBr) 20 Mg Tab 30 Mg PO QAM 04/09/16 Reported Aspirin Ec (Aspirin) 81 Mg Tab 162 Mg PO HS 11/07/15 Reported Biotin 5000 (Biotin) 5 Mg Cap 5 Mg PO QPM 11/07/15 Reported Claritin (Loratadine) 10 Mg Tab 10 Mg PO QAM 11/07/15 Reported Adderall 10MG (Amphetamine-Dextroamphetamine 10MG) 1 Tab Tab 10 Mg PO BID 09/09/15 Reported Pataday (Olopatadine Hydrochloride) 37 Drops/2.5 Ml Soln 1 Drops OPB DAILY PRN 09/09/15 Reported Adderall Xr 30MG (Amphetamine-Dextroamphetamine 30MG) 1 Cap Cap 30 Mg PO BID 01/17/15 Reported Zantac (Ranitidine HCl) 150 Mg Tab 150 Mg PO BID 01/17/15 Reported Linzess (Linaclotide) 145 Mcg Cap 145 Mcg PO QAM 01/17/15 Reported Reglan (Metoclopramide Hcl) 10 Mg Tab 10 Mg PO QID 01/16/13 Reported Protonix (Pantoprazole Sodium) 40 Mg Tab 40 Mg PO BID 07/29/11 Reported Physical Exam Vital Signs (Last 8hrs): Last 8 Hrs Date Time Temp Pulse Resp B/P (MAP) Pulse Ox O2 Delivery O2 Flow Rate FiO2 05/08/17 08:00 Room Air CPAP 05/08/17 07:16 37.0 79 18 127/72 (90) 94 05/08/17 04:00 Room Air CPAP 05/08/17 03:46 37.0 77 18 126/79 (95) 95 Room Air General: A&Ox3. HEENT: Normocephalic. Atraumatic. PER. Conjunctiva pink, sclera clear. Neck: There are bilateral carotid bruits. There is 4-5 cm of JVD at 45 degrees. +HJR. Heart: RRR at 90 bpm. Soft systolic murmur at the LLSB. PMI is nondisplaced. Lungs: Clear. Abdomen: +BS. Soft. Nontender. No masses or organomegaly. Extremities: 1+ edema into the thighs. No clubbing. No cyanosis. Limited neurological examination is without focal deficits. Distal pulses were not appreciated. Psychiatric: Flat affect. Data Last 24 Hours Test 05/07/17 16:50 05/07/17 18:39 05/07/17 21:57 05/08/17 00:10 Creatine Kinase MB Ratio 3.4 3.4 White Blood Count 10.31 K/uL Red Blood Count 3.55 M/uL Hemoglobin 10.2 g/dL Hematocrit 33.6 % Mean Corpuscular Volume 94.6 fL Mean Corpuscular Hemoglobin 28.7 pg Mean Corpuscular Hemoglobin Concent 30.4 g/dl Platelet Count 254 K/uL Mean Platelet Volume 9.4 fL Neutrophils (%) (Auto) 65.4 % Lymphocytes (%) (Auto) 25.2 % Monocytes (%) (Auto) 4.6 % Eosinophils (%) (Auto) 4.0 % Basophils (%) (Auto) 0.5 % Neutrophils # (Auto) 6.75 K/uL Lymphocytes # (Auto) 2.60 K/uL Monocytes # (Auto) 0.47 K/uL Eosinophils # (Auto) 0.41 K/uL Basophils # (Auto) 0.05 K/uL RDW Standard Deviation 43.5 fL RDW Coefficient of Variation 12.5 % Immature Granulocyte % (Auto) 0.3 % Immature Granulocyte # (Auto) 0.03 K/uL Sodium Level 140 mmol/L Potassium Level 4.4 mmol/L Chloride Level 110 mmol/L Carbon Dioxide Level 21 mmol/L Anion Gap 9.0 mmol/L Blood Urea Nitrogen 56 mg/dl Creatinine 2.30 mg/dl Est Creatinine Clear Calc Drug Dose 32.0 ml/min Estimated GFR () 27.2 Estimated GFR (Non- 23.5 BUN/Creatinine Ratio 24.3 Random Glucose 170 mg/dl Calcium Level 9.2 mg/dl Total Bilirubin 0.2 mg/dl Direct Bilirubin < 0.1 mg/dl Aspartate Amino Transf (AST/SGOT) 24 U/L Alanine Aminotransferase (ALT/SGPT) 60 U/L Alkaline Phosphatase 149 U/L Total Creatine Kinase 186 U/L 179 U/L Creatine Kinase MB 6.4 ng/ml 6.1 ng/ml Troponin I 0.161 ng/ml 0.137 ng/ml Pro-B-Type Natriuretic Peptide 80493 pg/ml Total Protein 6.8 gm/dl Albumin 3.7 gm/dl Lipase 122 U/L Hepatitis C Antibody Screen NEG Bedside Glucose 231 mg/dl Test 05/08/17 06:26 05/08/17 07:24 White Blood Count 8.29 K/uL Red Blood Count 3.40 M/uL Hemoglobin 10.0 g/dL Hematocrit 31.8 % Mean Corpuscular Volume 93.5 fL Mean Corpuscular Hemoglobin 29.4 pg Mean Corpuscular Hemoglobin Concent 31.4 g/dl Platelet Count 242 K/uL Mean Platelet Volume 9.1 fL Neutrophils (%) (Auto) 53.6 % Lymphocytes (%) (Auto) 34.9 % Monocytes (%) (Auto) 6.9 % Eosinophils (%) (Auto) 4.0 % Basophils (%) (Auto) 0.5 % Neutrophils # (Auto) 4.45 K/uL Lymphocytes # (Auto) 2.89 K/uL Monocytes # (Auto) 0.57 K/uL Eosinophils # (Auto) 0.33 K/uL Basophils # (Auto) 0.04 K/uL RDW Standard Deviation 42.9 fL RDW Coefficient of Variation 12.6 % Immature Granulocyte % (Auto) 0.1 % Immature Granulocyte # (Auto) 0.01 K/uL Prothrombin Time 10.0 SECONDS Prothromb Time International Ratio 0.9 Sodium Level 143 mmol/L Potassium Level 4.5 mmol/L Chloride Level 114 mmol/L Carbon Dioxide Level 23 mmol/L Anion Gap 6.0 mmol/L Blood Urea Nitrogen 50 mg/dl Creatinine 1.80 mg/dl Est Creatinine Clear Calc Drug Dose 40.7 ml/min Estimated GFR () 36.6 Estimated GFR (Non- 31.6 BUN/Creatinine Ratio 28.1 Random Glucose 105 mg/dl Calcium Level 8.8 mg/dl Total Creatine Kinase 121 U/L Creatine Kinase MB 3.6 ng/ml Creatine Kinase MB Ratio 3.0 Troponin I 0.159 ng/ml Bedside Glucose 99 mg/dl Echo in March 2017, at [facility], resting echocardiography revealed reduced RV systolic function in increased pulmonary artery systolic pressure. LV chamber size was normal as was LV systolic function, EF 55 to 60% with mild concentric LVH. There were no segmental left ventricular wall motion abnormalities. Grade 2 diastolic dysfunction observed. EKG dated and timed 07-MAY-2017 @ 17:55:52: Normal sinus rhythm. Possible Left atrial enlargement. Left axis deviation. Right bundle branch block. Possible Inferior infarct , age undetermined. ST & T wave abnormality, consider lateral ischemia. When compared with ECG of 01-MAR-2017 06:17, Inferior infarct is now Present. T wave inversion now evident in Anterior leads. Admission CXR revealed, as per Dr. Millan, revealed cardiomegaly without overt pulmonary edema. Improved aeration of the bilateral lung bases from prior study with persistent subsegmental left basilar opacity suggesting atelectasis, possibly with trace pleural effusion. Telemetry reviewed: Currently sinus in the 's. No atrial fibrillation or flutter. No pauses. Assessment & Plan Complex 52 year old female admitted with continued complaints of acute on chronic dyspnea, abdominal fullness/distention, lower extremity peripheral edema , and weight gain despite multiple daily doses of outpatient IV diuretic therapy. Examination continues to reveal evidence of acute decompensated diastolic congestive heart failure. Resting echocardiography requested to reassess LV and RV function with note made of prior findings in March as well as CPAP/supplemental oxygen therapy over the past month. An abdominal ultrasound has also been requested to assess for ascites given complaint/concern. Recommend a trial of twice daily dosing of inpatient IV furosemide versus furosemide infusion though will await Nephrology consultation/recommendations and evaluation by Dr. Zapata.
--- NOTE | 2017-05-08 11:29 | DIAGNOSTIC IMAGING REPORT ---
ASCITES-ABDOMEN LIMITED ULTRASOUND CLINICAL HISTORY: abdominal distention, shortness of breath COMPARISON STUDY: None. FINDINGS: Transabdominal scanning of the abdomen was performed. No ascites identified. IMPRESSION: No ascites. Electronically signed by: Justin Ramirez M.D. 05/08/2017 11:27 AM Dictated Date/Time: 05/08/2017 11:27 AM
[2017-05-08 11:59] LABS: URINE APPEARANCE CLEAR (CLEAR); URINE BILIRUBIN NEG (NEG); URINE COLOR YELLOW; URINE EPITHELIAL CELL AUTO >30 /lpf (0-5); URINE NITRITE NEG (NEG); URINE SPECIFIC GRAVITY 1.022 (1.000-1.030); UROBILINOGEN NEG (NEG)
[2017-05-08 12:07] LABS: MANUAL MICROSCOPIC REQUIRED? NO; REVIEW REQ? NO
[2017-05-08] MEDS: AMPHETAMINE ASP/SULF/DEXTRAMPH 10 MG TAB PO SCH (12:09)
[2017-05-08] MEDS: ADDERALL 30 MG PO SCH (12:10)
[2017-05-08] MEDS: AMPHETAMINE-DEXTROAMPHETAMINE 30 MG CAP PO SCH (12:10)
[2017-05-08] MEDS: HEPARIN SOD 5000 UNIT/0.5 ML CARP SQ SCH ×2 (12:15→21:02)
--- NOTE | 2017-05-08 13:09 | Nephrology Consultation ---
Nephrology Consultation Date & Providers Date of Consultation: May 08, 2017. Primary Care Provider: Devon Biggs D.O. Referring Provider: Reason for Consultation Chronic kidney disease History of Present Illness Cindy Zhang is a 52 year-old female with CKD III and microalbuminuria. CKD has been attributed to microvascular disease associated with diabetes mellitus, hypertension, and tobacco abuse. She has had type 1 diabetes for over forty years which is complicated by retinopathy, neuropathy, and gastroparesis. Medical history is also complicated by an ischemic cardiomyopathy with EF of 45%. She does not tolerate MEENA or ARB. Cindy was admitted to [facility] from February 18 to March 02 with acute on chronic diastolic CHF and YVETTE. Creatinine in October of 2016 was 1.6-2.1 mg/dL. In January , creatinine increased to 2.4 mg/dL. It had stabilized at 2.3 mg/dL at the time of hospital discharge. Cindy was previously followed by Dr. Valencia in the outpatient nephrology clinic but has asked to transition her care. Notes from Dr. Valencia were reviewed today. The patient's medical records were reviewed in detail. Today's reason for consultation is diastolic congestive heart failure, right heart failure and chronic kidney disease with cardiorenal syndrome. Cindy is followed closely in the cardiology clinic by Dr. Castañeda and Sandeep Izquierdo PA-C. I spoke with Sandeep this morning. Cindy has been struggling with chronic dyspnea, abdominal fullness/distention, lower extremity peripheral edema , and weight gain. Despite multiple daily doses of outpatient IV furosemide her symptoms have persisted and her weight has continued to increase. She notes a mild nonproductive cough. She has stable two pillow orthopnea without PND. Diuretics have been held since admission. Past Medical/Surgical History Medical: 1. 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 Peripheral vascular disease. 3. History of osteomyelitis. 4. PAD. 5. Severe obstructive sleep apnea and underlying obstructive pulmonary disease. Utilizing CPAP 9 with 1 L/min supplemental oxygen [facility] since 04/10/2017. 6. Ischemic cardiomyopathy with past LVEF of 45%. October 22, 2012 catheterization revealing 2 vessel CAD of the LAD and Circ. Specific angiography was right dominant. The RCA was a medium caliber vessel with moderate disease including a 30% mid RCA lesion. The LM was mildly diseased. The LAD was severely diseased including a 50% proximal LAD lesion, 80% mid LAD lesion, 90% distal LAD lesion, and a 50% D1 lesion. The LCX was nondominant and severely diseased with an 80% OM1 lesion, 99% OM2 lesion, and an 80% mid LCX lesion, LVEDP elevated. 7. Diuretic resistance. 8. Diastolic dysfunction. 9. Right heart failure. 10. Secondary hyperparathyroidism. 11. Anemia of chronic disease. 12. Tobacco abuse. 13. Hypertension. 14. Dyslipidemia. 15. GERD. 16. Hypothyroidism. 17. Depression. 18. Panic disorder. Followed by Psychiatry, transitioning from Dr. Pisano to Dr. Fields in the Fall. 19. ADHD. Currently in the process of weaning off Adderall. 20. Chronic sinusitis. 21. Glaucoma. Surgical: 1. Status post PTCA of the right popliteal artery. 2. Status post excision of the right 5th metatarsal and debridement of the lateral malleolus with culture positive for strep and coag neg staph. 3. Status post 01/05/2013 CABG with a SINHA to the proximal LAD, free KARO from the SINHA to the OM, and distal LAD endarterectomy with patch angioplasty. 4. Sinus surgery. 5. Removal endometrial tag. 6. Right breast biopsy, benign. 7. Colonoscopy with polypectomy. Allergies Coded Allergies: Penicillins (Verified Allergy, Intermediate, BLOTCHY SKIN/ ITCHY, 02/28/17) Vancomycin (Unverified Allergy, Intermediate, SHORTNESS OF BREATH, 02/28/17 ) Clopidogrel (Verified Allergy, Mild, rash, 02/28/17) rash due to Plavix or ertapenem Ertapenem (Verified Allergy, Mild, rash, 02/28/17) rash due to Plavix or ertapenem? Cephalosporins (Verified Allergy, Unknown, CECLOR-UNKNOWN, 02/28/17) Erythromycin (Unverified Allergy, Unknown, FROM H AND P-RASH, 02/28/17) Statins (Unverified Allergy, Unknown, MYALGIA, 02/28/17) Codeine (Verified Adverse Reaction, Unknown, VOMITING, 02/28/17) Nitrofurantoin (Unverified Adverse Reaction, Unknown, vomiting, 02/28/17) Pregabalin (Unverified Adverse Reaction, Unknown, VERY EMOTIONAL CRYING, ) Inpatient Medications Current Inpatient Medications Medications (Trade) Dose Ordered Sig/Kike Route Start Time Stop Time Status Last Admin Dose Admin Insulin Aspart (novoLOG ASPART) SLIDING SCALE If C... ACHS SC 05/07/17 21:00 06/06/17 20:59 05/08/17 12:14 5 UNITS Glucose (Glucose 40% Gel) 15-30 GRAMS 15 GRAMS... UD PRN PO 05/07/17 20:15 06/06/17 20:14 Glucose (Glucose Chew Tab) 4-8 Tablets 4 Tabl... UD PRN PO 05/07/17 20:15 06/06/17 20:14 Dextrose (Dextrose 50% 50ML Syringe) 25-50ML OF 50% DW IV FOR... UD PRN IV 05/07/17 20:15 06/06/17 20:14 Glucagon (Glucagon Inj) 1 mg UD PRN SQ 05/07/17 20:15 06/06/17 20:14 Miscellaneous (Iv Fluids Completed) 1 ea PRN PRN N/A 05/07/17 20:30 05/07/18 20:29 Heparin Sodium (Porcine) (Heparin Sq 5000 Unit/0.5ml) 5,000 unit Q8 SQ 05/08/17 14:00 06/07/17 13:59 Acetaminophen (Tylenol Tab) 650 mg Q4H PRN PO 05/07/17 20:15 06/06/17 20:14 Aspirin (Ecotrin Tab) 162 mg HS PO 05/07/17 21:00 06/06/17 20:59 05/07/17 22:21 162 MG Bisacodyl (Dulcolax Tab) 15 mg HS PO 05/07/17 21:00 06/06/17 20:59 05/07/17 22:22 15 MG Loratadine (Claritin Tab) 10 mg QAM PO 05/08/17 09:00 06/07/17 08:59 05/08/17 10:02 10 MG Lorazepam (Ativan Tab) 1 mg HS PO 05/07/17 21:00 06/06/17 20:59 05/07/17 22:20 1 MG Metoprolol Tartrate (Lopressor Tab) 25 mg BID PO 05/07/17 21:00 06/06/17 20:59 05/08/17 10:01 25 MG Pantoprazole Sodium (Protonix Tab) 40 mg BID PO 05/07/17 21:00 06/06/17 20:59 05/08/17 10:02 40 MG Ranitidine HCl (zANTac TAB) 150 mg BID PO 05/07/17 21:00 06/06/17 20:59 05/08/17 10:02 150 MG Travoprost (Travatan Z) 1 drops HS OP 05/07/17 21:00 06/06/17 20:59 05/07/17 22:20 1 DROPS Miscellaneous Information (Order Awaiting Action) 1 ea QS N/A 05/08/17 00:00 06/07/17 00:00 Amphetamine Aspartate/ Amphetam Sulf (Amphetamine Aspartate/Amph Sulf/Dextramphet) 10 mg QDL PO 05/08/17 12:00 05/22/17 11:59 05/08/17 12:09 10 MG Vortioxetine (Trintellix) 20 mg DAILY PO 05/08/17 09:00 06/07/17 08:59 05/08/17 10:00 20 MG Linaclotide (Linzess) 145 mcg DAILY PO 05/08/17 09:00 06/07/17 08:59 05/08/17 10:01 145 MCG Thyroid (Wp Thyroid) 65 mg DAILY PO 05/08/17 09:00 06/07/17 08:59 05/08/17 10:00 65 MG Insulin Detemir (Levemir Flexpen/ FlexTouch) 13 units BID SC 05/08/17 09:00 06/06/17 20:59 05/08/17 10:05 13 UNITS Miscellaneous Information (Consult Glycemic Management Pharmacy) 1 ea UD PRN N/A 05/08/17 09:05 06/07/17 09:04 Metoclopramide HCl (Reglan Tab) 10 mg QID PO 05/08/17 09:00 06/07/17 08:59 05/08/17 12:10 10 MG Amphetamine/ Dextroamphetamine (Adderall Xr 30 Mg) 30 mg QDL PO 05/08/17 12:00 06/07/17 11:59 05/08/17 12:10 30 MG Non-Formulary Medication (Patient'S Own Controlled Med) 1 ea QDL PO 05/08/17 12:00 05/22/17 11:59 05/08/17 12:10 1 EA Family History FH: CAD (coronary artery disease) FATHER ([place] at age 47, CABG x 4 ) CAD and CVA Social History Smoking Status: Current Every Day Smoker Smokeless Tobacco Use: No Alcohol Use: none Drug Use: none Marital Status: Housing Status: lives with significant other 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 Pertinent positives are noted above. All other systems are negative. Physical Exam Date Time Temp Pulse Resp B/P (MAP) Pulse Ox O2 Delivery O2 Flow Rate FiO2 05/08/17 08:00 Room Air CPAP 05/08/17 07:16 37.0 79 18 127/72 (90) 94 05/08/17 04:00 Room Air CPAP 05/08/17 03:46 37.0 77 18 126/79 (95) 95 Room Air 05/08/17 00:00 Room Air CPAP 05/07/17 23:11 36.8 85 16 148/82 (104) 90 Room Air 05/07/17 21:00 36.7 93 18 149/83 (105) 96 Room Air 05/07/17 20:54 Room Air 05/07/17 19:55 87 20 164/78 97 05/07/17 18:00 84 20 160/80 97 Room Air 05/07/17 15:53 36.7 92 18 123/60 96 Room Air General Appearance: WD/WN, no apparent distress Head: normocephalic, atraumatic Eyes: normal inspection, sclerae normal ENT: normal ENT inspection, pharynx normal Neck: supple, + JVD (10-12 cm JVP) Respiratory/Chest: lungs clear, no respiratory distress, no accessory muscle use Cardiovascular: regular rate, rhythm, no gallop, no murmur Abdomen/GI: non tender, soft Extremities/Musculoskelatal: + pedal edema (+1 pitting extending to the thigh) , + pertinent finding (no distal cyanosis) Neurologic/Psych: alert, normal mood/affect Skin: + pertinent finding (xerosis) Laboratory Results Last 24 Hours Test 05/07/17 16:50 05/07/17 18:39 05/07/17 21:57 05/08/17 00:10 Creatine Kinase MB Ratio 3.4 3.4 White Blood Count 10.31 K/uL Red Blood Count 3.55 M/uL Hemoglobin 10.2 g/dL Hematocrit 33.6 % Mean Corpuscular Volume 94.6 fL Mean Corpuscular Hemoglobin 28.7 pg Mean Corpuscular Hemoglobin Concent 30.4 g/dl Platelet Count 254 K/uL Mean Platelet Volume 9.4 fL Neutrophils (%) (Auto) 65.4 % Lymphocytes (%) (Auto) 25.2 % Monocytes (%) (Auto) 4.6 % Eosinophils (%) (Auto) 4.0 % Basophils (%) (Auto) 0.5 % Neutrophils # (Auto) 6.75 K/uL Lymphocytes # (Auto) 2.60 K/uL Monocytes # (Auto) 0.47 K/uL Eosinophils # (Auto) 0.41 K/uL Basophils # (Auto) 0.05 K/uL RDW Standard Deviation 43.5 fL RDW Coefficient of Variation 12.5 % Immature Granulocyte % (Auto) 0.3 % Immature Granulocyte # (Auto) 0.03 K/uL Sodium Level 140 mmol/L Potassium Level 4.4 mmol/L Chloride Level 110 mmol/L Carbon Dioxide Level 21 mmol/L Anion Gap 9.0 mmol/L Blood Urea Nitrogen 56 mg/dl Creatinine 2.30 mg/dl Est Creatinine Clear Calc Drug Dose 32.0 ml/min Estimated GFR () 27.2 Estimated GFR (Non- 23.5 BUN/Creatinine Ratio 24.3 Random Glucose 170 mg/dl Calcium Level 9.2 mg/dl Total Bilirubin 0.2 mg/dl Direct Bilirubin < 0.1 mg/dl Aspartate Amino Transf (AST/SGOT) 24 U/L Alanine Aminotransferase (ALT/SGPT) 60 U/L Alkaline Phosphatase 149 U/L Total Creatine Kinase 186 U/L 179 U/L Creatine Kinase MB 6.4 ng/ml 6.1 ng/ml Troponin I 0.161 ng/ml 0.137 ng/ml Pro-B-Type Natriuretic Peptide 06436 pg/ml Total Protein 6.8 gm/dl Albumin 3.7 gm/dl Lipase 122 U/L Hepatitis C Antibody Screen NEG Bedside Glucose 231 mg/dl Test 05/08/17 06:26 05/08/17 07:24 05/08/17 11:30 05/08/17 11:53 White Blood Count 8.29 K/uL Red Blood Count 3.40 M/uL Hemoglobin 10.0 g/dL Hematocrit 31.8 % Mean Corpuscular Volume 93.5 fL Mean Corpuscular Hemoglobin 29.4 pg Mean Corpuscular Hemoglobin Concent 31.4 g/dl Platelet Count 242 K/uL Mean Platelet Volume 9.1 fL Neutrophils (%) (Auto) 53.6 % Lymphocytes (%) (Auto) 34.9 % Monocytes (%) (Auto) 6.9 % Eosinophils (%) (Auto) 4.0 % Basophils (%) (Auto) 0.5 % Neutrophils # (Auto) 4.45 K/uL Lymphocytes # (Auto) 2.89 K/uL Monocytes # (Auto) 0.57 K/uL Eosinophils # (Auto) 0.33 K/uL Basophils # (Auto) 0.04 K/uL RDW Standard Deviation 42.9 fL RDW Coefficient of Variation 12.6 % Immature Granulocyte % (Auto) 0.1 % Immature Granulocyte # (Auto) 0.01 K/uL Prothrombin Time 10.0 SECONDS Prothromb Time International Ratio 0.9 Sodium Level 143 mmol/L Potassium Level 4.5 mmol/L Chloride Level 114 mmol/L Carbon Dioxide Level 23 mmol/L Anion Gap 6.0 mmol/L Blood Urea Nitrogen 50 mg/dl Creatinine 1.80 mg/dl Est Creatinine Clear Calc Drug Dose 40.7 ml/min Estimated GFR () 36.6 Estimated GFR (Non- 31.6 BUN/Creatinine Ratio 28.1 Random Glucose 105 mg/dl Calcium Level 8.8 mg/dl Total Creatine Kinase 121 U/L Creatine Kinase MB 3.6 ng/ml Creatine Kinase MB Ratio 3.0 Troponin I 0.159 ng/ml Bedside Glucose 99 mg/dl 227 mg/dl Urine Color YELLOW Urine Appearance CLEAR Urine pH 5.0 Urine Specific [place] 1.022 Urine Protein 2+ Urine Glucose (UA) TRACE Urine Ketones NEG Urine Occult Blood 1+ Urine Nitrite NEG Urine Bilirubin NEG Urine Urobilinogen NEG Urine Leukocyte Esterase NEG Urine WBC (Auto) 1-5 /hpf Urine RBC (Auto) 0-4 /hpf Urine Hyaline Casts (Auto) 1-5 /lpf Urine Epithelial Cells (Auto) >30 /lpf Urine Bacteria (Auto) NEG Impression (1) Cardiorenal syndrome (2) Acute on chronic diastolic CHF (congestive heart failure) (3) CKD (chronic kidney disease) stage 3, GFR 30-59 ml/min (4) Diabetes mellitus type 1 (5) HTN (hypertension) Cindy Zhang is a 52-year-old female with chronic kidney disease class III. She has chronic diastolic CHF and evidence of recurrent right heart failure as manifested by predominately abdominal edema. She has a history of diuretic resistance and cardiorenal syndrome. Volume management has becoming increasingly complicated. This has resulted in recurrent hospitalization after recent failure to respond to IV diuretics as an outpatient. Cindy was admitted with evidence of recurrent acute on chronic CHF. Diuretics were held. Creatinine has improved from 2.4 to 1.8 mg/dL. Diuretics have been held pending additional monitoring. UA is notable for 2+ protein. Serum albumin is normal. Serum calcium and electrolytes are otherwise normal. Cindy has underlying chronic lung disease and SUGEY/COPD. She recently saw Dr. Brady in the pulmonology clinic. These records were reviewed today as well. Recommendations CKD: -- Attributed to diabetes mellitus, hypertension, tobacco use, microvascular disease and cardiorenal syndrome -- Fluctuates with volume status and EAV -- UA/microscopy reviewed today -- Document I/O's and daily weight -- Check metabolic profile daily -- Medications appropriate for renal function Diastolic CHF/R heart failure: -- Avoid aggressive diuresis -- Suggest furosemide as needed to encourage slightly negative fluid balance ( start with 40 mg IV) -- Urine sodium requested to help evaluate diuretic resistance -- Question benefit of right heart catheterization Anemia: -- Check iron profile with next set of labs
--- NOTE | 2017-05-08 13:31 | Progress Note ---
Medicine Progress Note Date & Time of Visit: May 08, 2017 at 13:02. Subjective 52 yo F with h/o diastolic CHF with RV dysfunction, recently admitted for CHF exacerbation, presents with failed outpatient therapy for recurring CHF exacerbation -pt feeling abdominal distension--Abdominal u/s today negative for fluid -denies CP, SOB, fevers, chills, or cough -creatinine improved from 2.3 yesterday to 1.8 today -Lasix 40 IV BID restarted per Cardiology -Dr. Osborne has seen patient Objective Last 8 Hrs Date Time Temp Pulse Resp B/P (MAP) Pulse Ox O2 Delivery O2 Flow Rate FiO2 05/08/17 08:00 Room Air CPAP 05/08/17 07:16 37.0 79 18 127/72 (90) 94 Physical Exam: GEN: WNWD, in no acute distress, alert and appropriate HEENT: NC/AT, pupils are equal and round bilaterally, normal sclerae, MMM NECK: trachea midline, no JVD CARDIO: reg rate, S1/2 heard without m/g/r, no peripheral edema, no abdominal edema LUNGS: CTA bilaterally, no crackles, rales or wheezes, good diaphragmatic excursion ABD: soft, non-tender, non-distended, no rebound or guarding, +BS EXTREMITY: RP and DP palpable 2+ bilat, R heel wound-Stg II, present on arrival , L achilles wound-nondraining, scabbed over-POA, extremities are warm and well- perfused. No evidence of infection surrounding wounds. NEURO: CN 2-12 grossly intact, sensation intact throughout, coordination intact (reflexes) BR 2+ bilat, knee 2+ bilat, achilles 2+ bilat MUSC: 5/5 strength throughout, no focal deficits SKIN: warm and dry Laboratory Results: 05/08/17 06:26 Red Blood Count 3.40, Mean Corpuscular Volume 93.5, Mean Corpuscular Hemoglobin 29.4, Mean Corpuscular Hemoglobin Concent 31.4, Mean Platelet Volume 9.1, Neutrophils (%) (Auto) 53.6, Lymphocytes (%) (Auto) 34.9, Monocytes (%) (Auto) 6.9, Eosinophils (%) (Auto) 4.0, Basophils (%) (Auto) 0.5, Neutrophils # (Auto) 4.45, Lymphocytes # (Auto) 2.89, Monocytes # (Auto) 0.57, Eosinophils # (Auto) 0.33, Basophils # (Auto) 0.04 05/08/17 06:26 Test 05/07/17 18:39 05/08/17 06:26 05/08/17 11:30 05/08/17 11:53 Total Bilirubin 0.2 mg/dl (0.2-1) Direct Bilirubin < 0.1 mg/dl (0-0.2) Aspartate Amino Transf (AST/SGOT) 24 U/L (15-37) Alanine Aminotransferase (ALT/SGPT) 60 U/L (12-78) Alkaline Phosphatase 149 U/L (45-117) Pro-B-Type Natriuretic Peptide 74721 pg/ml (0-900) Total Protein 6.8 gm/dl (6.4-8.2) Albumin 3.7 gm/dl (3.4-5.0) Lipase 122 U/L (73-393) Hepatitis C Antibody Screen NEG (NEG) White Blood Count 8.29 K/uL (4.8-10.8) Red Blood Count 3.40 M/uL (4.2-5.4) Hemoglobin 10.0 g/dL (12.0-16.0) Hematocrit 31.8 % (37-47) Mean Corpuscular Volume 93.5 fL (80-100) Mean Corpuscular Hemoglobin 29.4 pg (25-34) Mean Corpuscular Hemoglobin Concent 31.4 g/dl (32-36) Platelet Count 242 K/uL (130-400) Mean Platelet Volume 9.1 fL (7.4-10.4) Neutrophils (%) (Auto) 53.6 % Lymphocytes (%) (Auto) 34.9 % Monocytes (%) (Auto) 6.9 % Eosinophils (%) (Auto) 4.0 % Basophils (%) (Auto) 0.5 % Neutrophils # (Auto) 4.45 K/uL (1.4-6.5) Lymphocytes # (Auto) 2.89 K/uL (1.2-3.4) Monocytes # (Auto) 0.57 K/uL (0.11-0.59) Eosinophils # (Auto) 0.33 K/uL (0-0.5) Basophils # (Auto) 0.04 K/uL (0-0.2) RDW Standard Deviation 42.9 fL (36.4-46.3) RDW Coefficient of Variation 12.6 % (11.5-14.5) Immature Granulocyte % (Auto) 0.1 % Immature Granulocyte # (Auto) 0.01 K/uL (0.00-0.02) Prothrombin Time 10.0 SECONDS (9.0-12.0) Prothromb Time International Ratio 0.9 (0.9-1.1) Anion Gap 6.0 mmol/L (3-11) Est Creatinine Clear Calc Drug Dose 40.7 ml/min Estimated GFR () 36.6 Estimated GFR (Non- 31.6 BUN/Creatinine Ratio 28.1 (10-20) Calcium Level 8.8 mg/dl (8.5-10.1) Total Creatine Kinase 121 U/L (26-192) Creatine Kinase MB 3.6 ng/ml (0.5-3.6) Creatine Kinase MB Ratio 3.0 (0-3.0) Troponin I 0.159 ng/ml (0-0.045) Urine Color YELLOW Urine Appearance CLEAR (CLEAR) Urine pH 5.0 (4.5-7.5) Urine Specific [place] 1.022 (1.000-1.030) Urine Protein 2+ (NEG) Urine Glucose (UA) TRACE (NEG) Urine Ketones NEG (NEG) Urine Occult Blood 1+ (NEG) Urine Nitrite NEG (NEG) Urine Bilirubin NEG (NEG) Urine Urobilinogen NEG (NEG) Urine Leukocyte Esterase NEG (NEG) Urine WBC (Auto) 1-5 /hpf (0-5) Urine RBC (Auto) 0-4 /hpf (0-4) Urine Hyaline Casts (Auto) 1-5 /lpf (0-5) Urine Epithelial Cells (Auto) >30 /lpf (0-5) Urine Bacteria (Auto) NEG (NEG) Urine Random Creatinine 68.0 mg/dl Urine Random Sodium 56 mEq/L Bedside Glucose 227 mg/dl (70-90) Last 24 Hours Test 05/07/17 16:50 05/07/17 18:39 05/07/17 21:57 05/08/17 00:10 Creatine Kinase MB Ratio 3.4 3.4 White Blood Count 10.31 K/uL Red Blood Count 3.55 M/uL Hemoglobin 10.2 g/dL Hematocrit 33.6 % Mean Corpuscular Volume 94.6 fL Mean Corpuscular Hemoglobin 28.7 pg Mean Corpuscular Hemoglobin Concent 30.4 g/dl Platelet Count 254 K/uL Mean Platelet Volume 9.4 fL Neutrophils (%) (Auto) 65.4 % Lymphocytes (%) (Auto) 25.2 % Monocytes (%) (Auto) 4.6 % Eosinophils (%) (Auto) 4.0 % Basophils (%) (Auto) 0.5 % Neutrophils # (Auto) 6.75 K/uL Lymphocytes # (Auto) 2.60 K/uL Monocytes # (Auto) 0.47 K/uL Eosinophils # (Auto) 0.41 K/uL Basophils # (Auto) 0.05 K/uL RDW Standard Deviation 43.5 fL RDW Coefficient of Variation 12.5 % Immature Granulocyte % (Auto) 0.3 % Immature Granulocyte # (Auto) 0.03 K/uL Sodium Level 140 mmol/L Potassium Level 4.4 mmol/L Chloride Level 110 mmol/L Carbon Dioxide Level 21 mmol/L Anion Gap 9.0 mmol/L Blood Urea Nitrogen 56 mg/dl Creatinine 2.30 mg/dl Est Creatinine Clear Calc Drug Dose 32.0 ml/min Estimated GFR () 27.2 Estimated GFR (Non- 23.5 BUN/Creatinine Ratio 24.3 Random Glucose 170 mg/dl Calcium Level 9.2 mg/dl Total Bilirubin 0.2 mg/dl Direct Bilirubin < 0.1 mg/dl Aspartate Amino Transf (AST/SGOT) 24 U/L Alanine Aminotransferase (ALT/SGPT) 60 U/L Alkaline Phosphatase 149 U/L Total Creatine Kinase 186 U/L 179 U/L Creatine Kinase MB 6.4 ng/ml 6.1 ng/ml Troponin I 0.161 ng/ml 0.137 ng/ml Pro-B-Type Natriuretic Peptide 88040 pg/ml Total Protein 6.8 gm/dl Albumin 3.7 gm/dl Lipase 122 U/L Hepatitis C Antibody Screen NEG Bedside Glucose 231 mg/dl Test 05/08/17 06:26 05/08/17 07:24 05/08/17 11:30 05/08/17 11:53 White Blood Count 8.29 K/uL Red Blood Count 3.40 M/uL Hemoglobin 10.0 g/dL Hematocrit 31.8 % Mean Corpuscular Volume 93.5 fL Mean Corpuscular Hemoglobin 29.4 pg Mean Corpuscular Hemoglobin Concent 31.4 g/dl Platelet Count 242 K/uL Mean Platelet Volume 9.1 fL Neutrophils (%) (Auto) 53.6 % Lymphocytes (%) (Auto) 34.9 % Monocytes (%) (Auto) 6.9 % Eosinophils (%) (Auto) 4.0 % Basophils (%) (Auto) 0.5 % Neutrophils # (Auto) 4.45 K/uL Lymphocytes # (Auto) 2.89 K/uL Monocytes # (Auto) 0.57 K/uL Eosinophils # (Auto) 0.33 K/uL Basophils # (Auto) 0.04 K/uL RDW Standard Deviation 42.9 fL RDW Coefficient of Variation 12.6 % Immature Granulocyte % (Auto) 0.1 % Immature Granulocyte # (Auto) 0.01 K/uL Prothrombin Time 10.0 SECONDS Prothromb Time International Ratio 0.9 Sodium Level 143 mmol/L Potassium Level 4.5 mmol/L Chloride Level 114 mmol/L Carbon Dioxide Level 23 mmol/L Anion Gap 6.0 mmol/L Blood Urea Nitrogen 50 mg/dl Creatinine 1.80 mg/dl Est Creatinine Clear Calc Drug Dose 40.7 ml/min Estimated GFR () 36.6 Estimated GFR (Non- 31.6 BUN/Creatinine Ratio 28.1 Random Glucose 105 mg/dl Calcium Level 8.8 mg/dl Total Creatine Kinase 121 U/L Creatine Kinase MB 3.6 ng/ml Creatine Kinase MB Ratio 3.0 Troponin I 0.159 ng/ml Bedside Glucose 99 mg/dl 227 mg/dl Urine Color YELLOW Urine Appearance CLEAR Urine pH 5.0 Urine Specific [place] 1.022 Urine Protein 2+ Urine Glucose (UA) TRACE Urine Ketones NEG Urine Occult Blood 1+ Urine Nitrite NEG Urine Bilirubin NEG Urine Urobilinogen NEG Urine Leukocyte Esterase NEG Urine WBC (Auto) 1-5 /hpf Urine RBC (Auto) 0-4 /hpf Urine Hyaline Casts (Auto) 1-5 /lpf Urine Epithelial Cells (Auto) >30 /lpf Urine Bacteria (Auto) NEG Urine Random Creatinine 68.0 mg/dl Urine Random Sodium 56 mEq/L Assessment & Plan 52 yo F with h/o diastolic CHF with RV dysfunction, recently admitted for CHF exacerbation, presents with failed outpatient therapy for recurring CHF exacerbation. 1. CHF exacerbation-likely R-sided heart failure with diastolic dysfunction, acute on chronic. Likely causes include COPD and SUGEY as well as uncontrolled DM and long-standing HTN. Symptoms include abdominal fullness and distention, weight gain, reported LE edema (not present on exam today). She denies chest pain and although trop is elevated this is chronic with EKG revealing no active ischemia. She is still a smoker and states that she "avoids adding excess salt to foods." Cardiology team has seen her today and would like to continue with IV diuresis which was held in light of YVETTE that is now resolved. Creat 2.3 with base 1.6, today is 1.8). She was restarted on Lasix 40IV BID. cont accurate I/Os, daily weights and cont with cardiology recommendations. Defer to Cardio to order updated ECHO (last was 03/01/17 with EF 55-60%, Grade II DD and RV systolic dysfunction). 2. YVETTE on CKD-kidney function appears back to baseline after holding diuresis yesterday. Cont with PRP trend daily while on Lasix. Appreciate Nephro input ( Dr. Osborne) 3. CAD s.p CABG/PCD-stable, no chest pain or evidence of active ischemia. Cont ASA 162, Lopressor 25 BID. Notably allergic to statins, Plavix. 4. DMII-on insulin. Levemir started at 10 Units BID with ISS and carb coverage. Slightly above goal. Pharmacy consult requested. Apprec recs. 5. Gastroparesis-Reglan TID WM. Zofran held in light of QT prolongation. Apprec Cards recommendations. 6. h/o SUGEY-on CPAP 7. Anemia-chronic, at baseline. Likely multifactorial with ACD and anemia related to CKD. Monitor PRN. 8. Bipolar-on Trintellix per home meds, Ativan 1mg PO QHS, and Adderall. Pt in the process of changing mental health providers and reducing amphetamine dosage. Currently on 30mg daily. 9. Stg II heel ulcer on Right, POA, L heel wound-POA. Wound care consult ordered. Diabetic patient with peripheral neuropathy. No infection apparent. DVT [id number]. SCDs ordered and encouraged. Full Code Disposition-anticipate DC home after adequate diuresis. Will trend daily weights and monitor output and clinical improvement closely. Sandra Amanda DO [facility] Hospitalist. Consultants: Cards Nephro Wound Care. Current Inpatient Medications: Current Inpatient Medications Medications (Trade) Dose Ordered Sig/Kike Route Start Time Stop Time Status Last Admin Dose Admin Insulin Aspart (novoLOG ASPART) SLIDING SCALE If C... ACHS SC 05/07/17 21:00 06/06/17 20:59 05/08/17 12:14 5 UNITS Glucose (Glucose 40% Gel) 15-30 GRAMS 15 GRAMS... UD PRN PO 05/07/17 20:15 06/06/17 20:14 Glucose (Glucose Chew Tab) 4-8 Tablets 4 Tabl... UD PRN PO 05/07/17 20:15 06/06/17 20:14 Dextrose (Dextrose 50% 50ML Syringe) 25-50ML OF 50% DW IV FOR... UD PRN IV 05/07/17 20:15 06/06/17 20:14 Glucagon (Glucagon Inj) 1 mg UD PRN SQ 05/07/17 20:15 06/06/17 20:14 Miscellaneous (Iv Fluids Completed) 1 ea PRN PRN N/A 05/07/17 20:30 05/07/18 20:29 Heparin Sodium (Porcine) (Heparin Sq 5000 Unit/0.5ml) 5,000 unit Q8 SQ 05/08/17 14:00 06/07/17 13:59 Acetaminophen (Tylenol Tab) 650 mg Q4H PRN PO 05/07/17 20:15 06/06/17 20:14 Aspirin (Ecotrin Tab) 162 mg HS PO 05/07/17 21:00 06/06/17 20:59 05/07/17 22:21 162 MG Bisacodyl (Dulcolax Tab) 15 mg HS PO 05/07/17 21:00 06/06/17 20:59 05/07/17 22:22 15 MG Loratadine (Claritin Tab) 10 mg QAM PO 05/08/17 09:00 06/07/17 08:59 05/08/17 10:02 10 MG Lorazepam (Ativan Tab) 1 mg HS PO 05/07/17 21:00 06/06/17 20:59 05/07/17 22:20 1 MG Metoprolol Tartrate (Lopressor Tab) 25 mg BID PO 05/07/17 21:00 06/06/17 20:59 05/08/17 10:01 25 MG Pantoprazole Sodium (Protonix Tab) 40 mg BID PO 05/07/17 21:00 06/06/17 20:59 05/08/17 10:02 40 MG Ranitidine HCl (zANTac TAB) 150 mg BID PO 05/07/17 21:00 06/06/17 20:59 05/08/17 10:02 150 MG Travoprost (Travatan Z) 1 drops HS OP 05/07/17 21:00 06/06/17 20:59 05/07/17 22:20 1 DROPS Miscellaneous Information (Order Awaiting Action) 1 ea QS N/A 05/08/17 00:00 06/07/17 00:00 Amphetamine Aspartate/ Amphetam Sulf (Amphetamine Aspartate/Amph Sulf/Dextramphet) 10 mg QDL PO 05/08/17 12:00 05/22/17 11:59 05/08/17 12:09 10 MG Vortioxetine (Trintellix) 20 mg DAILY PO 05/08/17 09:00 06/07/17 08:59 05/08/17 10:00 20 MG Linaclotide (Linzess) 145 mcg DAILY PO 05/08/17 09:00 06/07/17 08:59 05/08/17 10:01 145 MCG Thyroid (Wp Thyroid) 65 mg DAILY PO 05/08/17 09:00 06/07/17 08:59 05/08/17 10:00 65 MG Insulin Detemir (Levemir Flexpen/ FlexTouch) 13 units BID SC 05/08/17 09:00 06/06/17 20:59 05/08/17 10:05 13 UNITS Miscellaneous Information (Consult Glycemic Management Pharmacy) 1 ea UD PRN N/A 05/08/17 09:05 06/07/17 09:04 Metoclopramide HCl (Reglan Tab) 10 mg QID PO 05/08/17 09:00 06/07/17 08:59 05/08/17 12:10 10 MG Amphetamine/ Dextroamphetamine (Adderall Xr 30 Mg) 30 mg QDL PO 05/08/17 12:00 06/07/17 11:59 05/08/17 12:10 30 MG Non-Formulary Medication (Patient'S Own Controlled Med) 1 ea QDL PO 05/08/17 12:00 05/22/17 11:59 05/08/17 12:10 1 EA
--- NOTE | 2017-05-08 13:32 | Pharmacy Progress Note ---
Glycemic Control Intl Consult Date of Service May 08, 2017. Scope Glycemic Pharmacist consulted by Dr Love on 05/08/17 for glycemic control and to write orders per [facility] inpatient glycemic control protocol Objective Weight (Kilograms): 86.000 Accuchecks BSG (last 24hrs): Test 05/07/17 18:39 05/07/17 21:57 05/08/17 06:26 05/08/17 07:24 Random Glucose 170 mg/dl (70-99) 105 mg/dl (70-99) Bedside Glucose 231 mg/dl (70-90) 99 mg/dl (70-90) Test 05/08/17 11:53 Bedside Glucose 227 mg/dl (70-90) Laboratory Data (last 24hrs) Test 05/07/17 18:39 05/08/17 06:26 Anion Gap 9.0 mmol/L 6.0 mmol/L BUN/Creatinine Ratio 24.3 28.1 Blood Urea Nitrogen 56 mg/dl 50 mg/dl Creatinine 2.30 mg/dl 1.80 mg/dl Potassium Level 4.4 mmol/L 4.5 mmol/L Sodium Level 140 mmol/L 143 mmol/L White Blood Count 10.31 K/uL 8.29 K/uL Red Blood Count 3.55 M/uL 3.40 M/uL Hemoglobin 10.2 g/dL 10.0 g/dL Hematocrit 33.6 % 31.8 % Mean Corpuscular Volume 94.6 fL 93.5 fL Mean Corpuscular Hemoglobin 28.7 pg 29.4 pg Mean Corpuscular Hemoglobin Concent 30.4 g/dl 31.4 g/dl Platelet Count 254 K/uL 242 K/uL Mean Platelet Volume 9.4 fL 9.1 fL Neutrophils (%) (Auto) 65.4 % 53.6 % Lymphocytes (%) (Auto) 25.2 % 34.9 % Monocytes (%) (Auto) 4.6 % 6.9 % Eosinophils (%) (Auto) 4.0 % 4.0 % Basophils (%) (Auto) 0.5 % 0.5 % Neutrophils # (Auto) 6.75 K/uL 4.45 K/uL Lymphocytes # (Auto) 2.60 K/uL 2.89 K/uL Monocytes # (Auto) 0.47 K/uL 0.57 K/uL Eosinophils # (Auto) 0.41 K/uL 0.33 K/uL Basophils # (Auto) 0.05 K/uL 0.04 K/uL Recent Pertinent Medications Outpatient Anti-diabetic Regimen: * Levemir 13 units twice daily plus Novolog CR of 1 unit per 15 grams of carbohydrates (max 15 units)/ CF of 1 unit for every 70 mg/dL over 130 mg/dL) * A1c = 10 % 01/23/17 Risk Factors for Insulin Resistance: * Diet: type 2 diabetic diet Assessment & Plan ASSESSMENT: * ADA & AACE recommend a goal blood sugar range 140-180 mg/dl for the majority of critically ill & non-critically ill patients. However, more stringent targets may be selected in individual cases. Will utilize more stringent goal of 110-160mg/dl based on patient age & comorbidities. Additionally, tighter glycemic control is warranted for a brittle diabetic patient. * Ms Zhang is a 52 y/o F admitted 05/08/17 with a PMH of HTN, CKD stage 3, CHF, CAD s/p CABG who is admitted with dyspnea on exertion and leg edema. She was being treated as an outpatient with IV Lasix but this did not alleviate her symptoms. The patient is a type 1 diabetic reasonably well known to the service. Her blood sugars are labile and a broad goal range was established for this. Confirmed home dose of Levemir with nurse. * Patient was admitted last night and administered per nurse this morning Levemir 13 units herself. Her home dose was resumed today by the provider and I agree with it. During previous admissions the patient has taken her home dose of Levemir. * For correctional insulin, patient appeared reasonably well controlled on a correction factor of 25 and carbohydrate ratio of 15. During the most recent admission, patient was given correction factor of 30 and carbohydrate ratio of 12....this did not seem provide adequate coverage. If blood sugars continue to be elevated, may tighten carbohydrate ratio to 12. PLAN FOR INPATIENT GLYCEMIC CONTROL: * Basal insulin with LANTUS 13 units SQ BID * Correctional Insulin with NOVOLOG / REGULAR per scale ACHS * Goal Range: Low 110 mg/dL - High 160 mg/dL * Correction Factor: 25 mg/dL/unit * Nutritional / Prandial insulin per carb ratio of 1 unit per 15 grams CHO consumed * Please note that the plan above was derived based on current level of insulin resistance and hospital stress. These recommendations are appropriate for inpatient admission only. Plan of care upon discharge will need to be reassessed to avoid potential outpatient hypo/hyperglycemia. Thank you.
[2017-05-08] MEDS ORDERED: FUROSEMIDE INJ 40 MG in SYRINGE 0 ML IV SCH (15:00)
[2017-05-08 16:14] VITALS: BP 152/80; PULSE 79; TEMP 37.1; O2SAT 94
[2017-05-08 19:20] VITALS: BP 145/74; PULSE 79; TEMP 37.2; O2SAT 94
[2017-05-08] MEDS: LORAZEPAM 1 MG TAB PO SCH (20:59)
[2017-05-08] MEDS: BISACODYL 5 MG TABEC PO SCH (20:59)
[2017-05-08] MEDS: TRAVOPROST Z 0.004% OPH SOLN 2.5 ML BTL OP SCH (20:59)
[2017-05-08] MEDS: ASPIRIN 81 MG ECTAB PO SCH (21:00)
[2017-05-09] VITALS: BP 135/84; PULSE 88; TEMP 37; O2SAT 94
[2017-05-09 04:00] VITALS: BP 159/92; PULSE 92; TEMP 36.4; O2SAT 97
[2017-05-09] MEDS: HEPARIN SOD 5000 UNIT/0.5 ML CARP SQ SCH ×3 (06:00→21:27)
[2017-05-09 06:28] LABS: BUN/CREATININE RATIO 26.3 (10-20); CALCIUM 8.5 mg/dl (8.5-10.1); CREATININE 1.9 mg/dl (0.60-1.20); FERRITIN 73.2 ng/ml (8.0-388.0); MAGNESIUM 2.2 mg/dl (1.8-2.4); POTASSIUM 4.7 mmol/L (3.5-5.1)
[2017-05-09 06:40] LABS: ESTIMATED AVERAGE GLUCOSE 200 mg/dl; HA1C FLAG Normal (Normal)
[2017-05-09] MEDS ORDERED: INSULIN REGULAR 7 UNITS in SYRINGE 6.93 ML IV SCH (06:45)
[2017-05-09 06:46] LABS: BETA-HYDROXYBUTYRATE 22.79 mg/dL (0.2-2.81)
[2017-05-09 07:31] VITALS: BP 164/81; PULSE 94; TEMP 36.8; O2SAT 94
[2017-05-09] MEDS: PATADAY~ORDER AWAITING ACTION SCH ×3 (07:57→16:00)
[2017-05-09] MEDS: RANITIDINE HCL 150 MG TAB PO SCH ×2 (07:59→21:26)
[2017-05-09] MEDS: METOCLOPRAMIDE HCL 10 MG TAB PO SCH ×4 (07:59→21:26)
[2017-05-09] MEDS: PANTOprazole SOD 40 MG TAB PO SCH ×2 (07:59→21:26)
[2017-05-09] MEDS: METOPROLOL TARTRATE 25 MG TAB PO SCH ×2 (07:59→21:25)
[2017-05-09] MEDS: LORATADINE 10 MG TAB PO SCH (07:59)
[2017-05-09] MEDS: THYROID 65 MG PO SCH (08:00)
[2017-05-09] MEDS: VORTIOXETINE HBR 20 MG PO SCH (08:00)
[2017-05-09] MEDS: LINACLOTIDE 145 MCG CAP PO SCH (08:00)
[2017-05-09] MEDS: INSULIN DETEMIR FLEXPEN/FLEX TOUCH 100 UNITS/ML 3ML SC SCH ×2 (08:22→21:29)
[2017-05-09] MEDS: INSULIN ASPART 100 UNITS/ML 3 ML PEN SC SCH ×4 (08:22→21:30)
--- NOTE | 2017-05-09 09:21 | Cardiology Follow-Up ---
Subjective General Date of Service: May 09, 2017. Chief Complaint: Fluid Pt evaluation today including: conversation w/ patient, physical exam, chart review, lab review, review of studies, conversation w/ library sales consultant, review of inpatient medication list History of Present Illness Patient seen and examined. She feels mildly improved in regards to dyspnea and fluid retention No chest pain or palpitations. Ambulatory throughout the room without difficulty. Controlling most factors in house her I/O's are negative 1,680 mL overall. Telemetry: Currently sinus at 84 bpm. Sinus tachycardia. No significant bradycardia or pauses. Limited abdominal ultrasound was without ascites Resting echo interpretation is pending. Allergies Coded Allergies: Penicillins (Verified Allergy, Intermediate, BLOTCHY SKIN/ ITCHY, 02/28/17) Vancomycin (Unverified Allergy, Intermediate, SHORTNESS OF BREATH, 02/28/17 ) Clopidogrel (Verified Allergy, Mild, rash, 02/28/17) rash due to Plavix or ertapenem Ertapenem (Verified Allergy, Mild, rash, 02/28/17) rash due to Plavix or ertapenem? Cephalosporins (Verified Allergy, Unknown, CECLOR-UNKNOWN, 02/28/17) Erythromycin (Unverified Allergy, Unknown, FROM H AND P-RASH, 02/28/17) Statins (Unverified Allergy, Unknown, MYALGIA, 02/28/17) Codeine (Verified Adverse Reaction, Unknown, VOMITING, 02/28/17) Nitrofurantoin (Unverified Adverse Reaction, Unknown, vomiting, 02/28/17) Pregabalin (Unverified Adverse Reaction, Unknown, VERY EMOTIONAL CRYING, ) Social History Smoking Status: Current Every Day Smoker Hx Tobacco Use In Past Year?: Yes Hx Alcohol Use - Type And Amou: No Hx Substance Use - Type And Am: No Problem List Medical Problems: (1) Acute coronary syndrome Status: Acute (2) Congestive heart failure Status: Acute (3) Elevated d-dimer Status: Acute (4) History of CHF (congestive heart failure) Status: Acute (5) History of coronary artery disease Status: Acute (6) Renal insufficiency Status: Acute (7) SOB (shortness of breath) Status: Acute Physical Exam Vital Signs Last Vital Signs Documentation Date Time Temp Pulse Resp B/P (MAP) Pulse Ox O2 Delivery O2 Flow Rate FiO2 05/09/17 08:00 Room Air 05/09/17 07:31 36.8 94 18 164/81 (584) 94 Physical Exam Constitutional: Level of Distress: NAD Ambulation: ambulating normally Psychiatric: Mental Status: active & alert Orientation: to time, to place, to person Memory: recent memory normal, remote memory normal Head: normocephalic, atraumatic Eyes: Pupils: PERRLA Neck: pertinent finding (6 cm of JVP. + HJR) Lungs: Auscultation: no wheezing, no rales/crackles, no rhonchi, deminished air movement, decreased breath sounds Cardiovascular: Heart Auscultation: RRR, normal S1, normal S2, no rubs, II/ JONA Peripheral Pulses: Bruits: carotid bruit on the left, carotid bruit on the right Radial Pulse: normal on the left, normal on the right Dorsalis Pedis Pulse: absent on the left, absent on the right Abdomen: Bowel Sounds: normal Inspection & Palpation: soft Extremities: no cyanosis, no clubbing, edema (indurated edema in the tighs. minimal distal bilateral lower extremity edema) Neurologic: Cranial Nerves: grossly intact Assessment and Plan Assessment and Plan Complex 52 year old female admitted with continued complaints of acute on chronic dyspnea, abdominal fullness/distention, lower extremity peripheral edema , and weight gain despite multiple daily doses of outpatient IV diuretic therapy. Patient has responded in inpatient management; controlling intake and monitoring output reveals a negative fluid balance of 1,680 mL's overall. Case discussed with Nephrology. Sodium restriction urged. She agrees to utilize thigh high compression stockings. Oral furosemide will be prescribed starting this morning. Recommend continued monitoring today with possible discharge on 05/10/2017 if she responds well to the above. Echo interpretation pending. Continue CPAP with supplemental oxygen QHS. Cardiology attending: Pt seen and examined, agree with findings and assessment as per Sandeep Finch. Pt states that she is feeling well. Above restrictions to be started, patient agreeable. Oral furosemide this AM and likely d/c tomorrow. Laboratory Results Last 24 Hours Test 05/08/17 11:30 05/08/17 11:53 05/08/17 16:48 05/08/17 20:30 Urine Color YELLOW Urine Appearance CLEAR Urine pH 5.0 Urine Specific [place] 1.022 Urine Protein 2+ Urine Glucose (UA) TRACE Urine Ketones NEG Urine Occult Blood 1+ Urine Nitrite NEG Urine Bilirubin NEG Urine Urobilinogen NEG Urine Leukocyte Esterase NEG Urine WBC (Auto) 1-5 /hpf Urine RBC (Auto) 0-4 /hpf Urine Hyaline Casts (Auto) 1-5 /lpf Urine Epithelial Cells (Auto) >30 /lpf Urine Bacteria (Auto) NEG Urine Random Creatinine 68.0 mg/dl Urine Random Sodium 56 mEq/L Bedside Glucose 227 mg/dl 259 mg/dl 218 mg/dl Test 05/09/17 05:26 05/09/17 07:38 Sodium Level 138 mmol/L Potassium Level 4.7 mmol/L Chloride Level 108 mmol/L Carbon Dioxide Level 24 mmol/L Anion Gap 6.0 mmol/L Blood Urea Nitrogen 50 mg/dl Creatinine 1.90 mg/dl Est Creatinine Clear Calc Drug Dose 38.4 ml/min Estimated GFR () 34.3 Estimated GFR (Non- 29.6 BUN/Creatinine Ratio 26.3 Random Glucose 367 mg/dl Estimated Average Glucose 200 mg/dl Hemoglobin A1c 8.6 % Calcium Level 8.5 mg/dl Magnesium Level 2.2 mg/dl Iron Level 76 mcg/dl Total Iron Binding Capacity 274 mcg/dl Transferrin 203 mg/dl Transferrin % Saturation 27 % Ferritin 73.2 ng/ml Beta-Hydroxybutyric Acid 22.79 mg/dL Bedside Glucose 310 mg/dl
--- NOTE | 2017-05-09 09:39 | Nephrology Progress Note ---
Nephrology Progress Note Date of Service May 09, 2017. Chief Complaint Chronic kidney disease Subjective No acute events overnight. Cindy is feeling improved this morning. Breathing is more comfortable. Lower extremity edema has improved. She was seen and evaluated with cardiology (Sandeep Self PA-C). Plan of care was discussed in detail with patient and cardiology. Review of Systems A complete review of systems was performed. Pertinent positives are noted above. All other systems are negative. Vital Signs Last 8 Hrs Date Time Temp Pulse Resp B/P (MAP) Pulse Ox O2 Delivery O2 Flow Rate FiO2 05/09/17 08:00 Room Air 05/09/17 07:31 36.8 94 18 164/81 (108) 94 05/09/17 04:00 36.4 92 20 159/92 (114) 97 CPAP 05/09/17 04:00 Room Air CPAP Last Recorded Weight Weight (Kilograms): 85.100 Physical Exam General Appearance: WD/WN, no apparent distress Head: normocephalic, atraumatic Eyes: normal inspection, sclerae normal ENT: normal ENT inspection, pharynx normal Neck: supple, no JVD Respiratory/Chest: lungs clear, no respiratory distress, no accessory muscle use, + rales (few at the right base) Cardiovascular: regular rate, rhythm, no gallop, no murmur Abdomen/GI: non tender, soft Extremities/Musculoskelatal: normal inspection, + pedal edema Neurologic/Psych: alert, normal mood/affect Family History FH: CAD (coronary artery disease) FATHER (ME at age 47, CABG x 4 ) CAD and CVA Social History Smoking Status: Former smoker Smokeless Tobacco Use: No Alcohol Use: none Drug Use: none Marital Status: Housing Status: lives with significant other 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 Results Past 24 Hours 05/09/17 05:26 Test 05/08/17 11:30 05/08/17 11:53 05/08/17 16:48 05/08/17 20:30 Urine Color YELLOW Urine Appearance CLEAR (CLEAR) Urine pH 5.0 (4.5-7.5) Urine Specific [place] 1.022 (1.000-1.030) Urine Protein 2+ (NEG) Urine Glucose (UA) TRACE (NEG) Urine Ketones NEG (NEG) Urine Occult Blood 1+ (NEG) Urine Nitrite NEG (NEG) Urine Bilirubin NEG (NEG) Urine Urobilinogen NEG (NEG) Urine Leukocyte Esterase NEG (NEG) Urine WBC (Auto) 1-5 /hpf (0-5) Urine RBC (Auto) 0-4 /hpf (0-4) Urine Hyaline Casts (Auto) 1-5 /lpf (0-5) Urine Epithelial Cells (Auto) >30 /lpf (0-5) Urine Bacteria (Auto) NEG (NEG) Urine Random Creatinine 68.0 mg/dl Urine Random Sodium 56 mEq/L Bedside Glucose 227 mg/dl (70-90) 259 mg/dl (70-90) 218 mg/dl (70-90) Test 05/09/17 05:26 05/09/17 07:38 Anion Gap 6.0 mmol/L (3-11) Est Creatinine Clear Calc Drug Dose 38.4 ml/min Estimated GFR () 34.3 Estimated GFR (Non- 29.6 BUN/Creatinine Ratio 26.3 (10-20) Estimated Average Glucose 200 mg/dl Hemoglobin A1c 8.6 % (4.5-5.6) Calcium Level 8.5 mg/dl (8.5-10.1) Magnesium Level 2.2 mg/dl (1.8-2.4) Iron Level 76 mcg/dl (35-150) Total Iron Binding Capacity 274 mcg/dl (250-450) Transferrin 203 mg/dl (200-360) Transferrin % Saturation 27 % (15-50) Ferritin 73.2 ng/ml (8.0-388.0) Beta-Hydroxybutyric Acid 22.79 mg/dL (0.2-2.81) Bedside Glucose 310 mg/dl (70-90) Allergies Coded Allergies: Penicillins (Verified Allergy, Intermediate, BLOTCHY SKIN/ ITCHY, 02/28/17) Vancomycin (Unverified Allergy, Intermediate, SHORTNESS OF BREATH, 02/28/17 ) Clopidogrel (Verified Allergy, Mild, rash, 02/28/17) rash due to Plavix or ertapenem Ertapenem (Verified Allergy, Mild, rash, 02/28/17) rash due to Plavix or ertapenem? Cephalosporins (Verified Allergy, Unknown, CECLOR-UNKNOWN, 02/28/17) Erythromycin (Unverified Allergy, Unknown, FROM H AND P-RASH, 02/28/17) Statins (Unverified Allergy, Unknown, MYALGIA, 02/28/17) Codeine (Verified Adverse Reaction, Unknown, VOMITING, 02/28/17) Nitrofurantoin (Unverified Adverse Reaction, Unknown, vomiting, 02/28/17) Pregabalin (Unverified Adverse Reaction, Unknown, VERY EMOTIONAL CRYING, ) Medications Current Inpatient Medications Medications (Trade) Dose Ordered Sig/Kike Route Start Time Stop Time Status Last Admin Dose Admin Insulin Aspart (novoLOG ASPART) SLIDING SCALE If C... ACHS SC 05/07/17 21:00 06/06/17 20:59 05/09/17 08:22 8 UNITS Glucose (Glucose 40% Gel) 15-30 GRAMS 15 GRAMS... UD PRN PO 05/07/17 20:15 06/06/17 20:14 Glucose (Glucose Chew Tab) 4-8 Tablets 4 Tabl... UD PRN PO 05/07/17 20:15 06/06/17 20:14 Dextrose (Dextrose 50% 50ML Syringe) 25-50ML OF 50% DW IV FOR... UD PRN IV 05/07/17 20:15 06/06/17 20:14 Glucagon (Glucagon Inj) 1 mg UD PRN SQ 05/07/17 20:15 06/06/17 20:14 Miscellaneous (Iv Fluids Completed) 1 ea PRN PRN N/A 05/07/17 20:30 05/07/18 20:29 Heparin Sodium (Porcine) (Heparin Sq 5000 Unit/0.5ml) 5,000 unit Q8 SQ 05/08/17 14:00 06/07/17 13:59 Acetaminophen (Tylenol Tab) 650 mg Q4H PRN PO 05/07/17 20:15 06/06/17 20:14 Aspirin (Ecotrin Tab) 162 mg HS PO 05/07/17 21:00 06/06/17 20:59 05/08/17 21:00 162 MG Bisacodyl (Dulcolax Tab) 15 mg HS PO 05/07/17 21:00 06/06/17 20:59 05/08/17 20:59 15 MG Loratadine (Claritin Tab) 10 mg QAM PO 05/08/17 09:00 06/07/17 08:59 05/09/17 07:59 10 MG Lorazepam (Ativan Tab) 1 mg HS PO 05/07/17 21:00 06/06/17 20:59 05/08/17 20:59 1 MG Metoprolol Tartrate (Lopressor Tab) 25 mg BID PO 05/07/17 21:00 06/06/17 20:59 05/09/17 07:59 25 MG Pantoprazole Sodium (Protonix Tab) 40 mg BID PO 05/07/17 21:00 06/06/17 20:59 05/09/17 07:59 40 MG Ranitidine HCl (zANTac TAB) 150 mg BID PO 05/07/17 21:00 06/06/17 20:59 05/09/17 07:59 150 MG Travoprost (Travatan Z) 1 drops HS OP 05/07/17 21:00 06/06/17 20:59 05/08/17 20:59 1 DROPS Miscellaneous Information (Order Awaiting Action) 1 ea QS N/A 05/08/17 00:00 06/07/17 00:00 Amphetamine Aspartate/ Amphetam Sulf (Amphetamine Aspartate/Amph Sulf/Dextramphet) 10 mg QDL PO 05/08/17 12:00 05/22/17 11:59 05/08/17 12:09 10 MG Vortioxetine (Trintellix) 20 mg DAILY PO 05/08/17 09:00 06/07/17 08:59 05/09/17 08:00 20 MG Linaclotide (Linzess) 145 mcg DAILY PO 05/08/17 09:00 06/07/17 08:59 05/09/17 08:00 145 MCG Thyroid (Wp Thyroid) 65 mg DAILY PO 05/08/17 09:00 06/07/17 08:59 05/09/17 08:00 65 MG Miscellaneous Information (Consult Glycemic Management Pharmacy) 1 ea UD PRN N/A 05/08/17 09:05 06/07/17 09:04 Metoclopramide HCl (Reglan Tab) 10 mg QID PO 05/08/17 09:00 06/07/17 08:59 05/09/17 07:59 10 MG Amphetamine/ Dextroamphetamine (Adderall Xr 30 Mg) 30 mg QDL PO 05/08/17 12:00 10/6/17 11:59 05/08/17 12:10 30 MG Non-Formulary Medication (Patient'S Own Controlled Med) 1 ea QDL PO 05/08/17 12:00 05/22/17 11:59 05/08/17 12:10 1 EA Insulin Detemir (Levemir Flexpen/ FlexTouch) 14 units BID SC 05/09/17 09:00 06/08/17 08:59 05/09/17 08:22 14 UNITS Furosemide (Lasix Tab) 40 mg BID17 PO 05/09/17 09:30 06/08/17 09:29 UNV Impression (1) Cardiorenal syndrome (2) Acute on chronic diastolic CHF (congestive heart failure) (3) CKD (chronic kidney disease) stage 3, GFR 30-59 ml/min (4) Diabetes mellitus type 1 (5) HTN (hypertension) Cindy Zhang is a 52-year-old female with chronic kidney disease class III. She was admitted with acute on chronic diastolic CHF and predominately R CHF. She has a history of diuretic resistance and cardiorenal syndrome. She responded appropriately to 40 mg IV furosemide yesterday. Oral Lasix will be continued today to encourage a slightly negative fluid balance. Thigh high TEDS to be placed. Cindy has a complicated history of recurrent hospitalization due to diuretic resistance and fluid retention. She is not hypoalbuminemic. Urine sodium is appropriate while off diuretics. She did respond to IV furosemide. She has started treatment for SUGEY. The importance of compliance with therapy including treatment of SUGEY as well as dietary sodium restriction was reviewed. Recommendations CKD: -- Attributed to diabetes mellitus, hypertension, tobacco use, microvascular disease and cardiorenal syndrome -- Fluctuates with volume status and EAV -- UA/microscopy reviewed today -- Document I/O's and daily weight -- Check metabolic profile daily -- Medications appropriate for renal function Diastolic CHF/R heart failure: -- Avoid aggressive diuresis -- Suggest furosemide as needed to encourage slightly negative fluid balance ( start with 40 mg IV) -- Urine sodium requested to help evaluate diuretic resistance -- Question benefit of right heart catheterization Anemia: -- Check iron profile with next set of labs
--- NOTE | 2017-05-09 11:01 | ECHOCARDIOGRAM REPORT ---
*NOTICE TO RECEIVING DEMOCRAT AGENCY This information is strictly Confidential and protected under [place] law. [place] law prohibits you from making any further disclosure of this information unless further disclosure is expressly permitted by the written consent of the person to whom it pertains or is authorized by law. A general authorization for the release of medical or other information is not sufficient for this purpose. Hospital accepts no responsibility if the information is made available to any other person, INCLUDING THE PATIENT. Interpretation Summary * Name: GRECIA ROSADO Study Date: 05/08/2017 03:21 PM BP: 126/79 mmHg * Patient Location: [facility]\S\N284\S\2 HR: 86 * : 1965 (M/d/yyyy) Gender: Female Height: 67 in * Age: 52 yrs Ethnicity: [place] Weight: 190 lb * Ordering Physician: Sandeep Self * Referring Physician: Sandeep Self PA-C * Performed By: Janine Mar RCS * * Reason For Study: CHF * BSA: 2.0 m2 * -- Conclusions -- * Normal LV chamber size with mild concentric LVH. * Normal LV systolic function, EF 55-60%. * No segmental left ventricular wall motion abnormalities are noted. Flattened septum is consistent with RV pressure/volume overload. * The right ventricular cavity size is enlarged (proximal parasternal long axis right ventricular outflow tract dimension >3.3 cm). * The right ventricular systolic function is reduced as assessed by tricuspid annular plane systolic excursion (TAPSE) (TAPSE <1.6 cm). * Aortic valve sclerosis moderate, without significant aortic valvular stenosis. * Mild tricuspid regurgitaiton. * Pulmonary hypertension is present, PASP of 53 mmHg assuming a RA pressure of 3 mmHg. Procedure Details * A complete two-dimensional transthoracic echocardiogram was performed (2D, M-mode, Doppler and color flow Doppler). Left Ventricle * The left ventricle is normal in size. * There is mild concentric left ventricular hypertrophy. * Left ventricular systolic function is normal. * No segmental left ventricular wall motion abnormalities are noted. * Ejection Fraction = 60-65%. * The left ventricular wall motion is normal. * Flattened septum is consistent with RV pressure/volume overload. Right Ventricle * The right ventricular cavity size is enlarged (proximal parasternal long axis right ventricular outflow tract dimension >3.3 cm). * The right ventricular systolic function is reduced as assessed by tricuspid annular plane systolic excursion (TAPSE) (TAPSE <1.6 cm). Atria * The left atrial size is normal. * Right atrial size is normal. * No ASD detected; PFO is not assessed. Mitral Valve * The mitral valve is normal in structure and function. Tricuspid Valve * The tricuspid valve anatomy is normal. * There is no tricuspid stenosis. * There is mild tricuspid regurgitation. Aortic Valve * The aortic valve is trileaflet. * Aortic valve sclerosis moderate, without significant aortic valvular stenosis. * No hemodynamically significant valvular aortic stenosis. * There is no significant aortic regurgitation. Pulmonic Valve * The pulmonary valve is not well seen, but the Doppler examination is normal without significant regurgitation or stenosis. Great Vessels * The aortic root is normal size. Pericardium/Pleural * There is no pericardial effusion. Left Ventricular Diastolic Function * Diastolic dysfunction, Grade II (pseudonormalization pattern). MMode 2D Measurements and Calculations IVSd 1.3 cm IVSs 1.9 cm LVIDd 4.8 cm LVIDs 3.4 cm LVPWd 1.2 cm LVPWs 1.6 cm IVS/LVPW 1.1 FS 28.6 % EDV(Teich) 105.2 ml ESV(Teich) 47.2 ml EF(Teich) 55.1 % EDV(cubed) 107.5 ml ESV(cubed) 39.1 ml EF(cubed) 63.6 % % IVS thick 41.6 % % LVPW thick 29.6 % LV mass(C)d 238.4 grams LV mass(C)dI 120.5 grams/m\S\2 LV mass(C)s 239.6 grams LV mass(C)sI 121.1 grams/m\S\2 SV(Teich) 58.0 ml SI(Teich) 29.3 ml/m\S\2 SV(cubed) 68.4 ml SI(cubed) 34.6 ml/m\S\2 Ao root diam 2.7 cm Ao root area 5.7 cm\S\2 LA dimension 3.5 cm LA/Ao 1.3 LVOT diam 2.0 cm LVOT area 3.2 cm\S\2 LVAd ap4 38.1 cm\S\2 LVLd ap4 8.4 cm EDV(MOD-sp4) 141.6 ml EDV(sp4-el) 146.8 ml LVAs ap4 26.7 cm\S\2 LVLs ap4 7.7 cm ESV(MOD-sp4) 77.9 ml ESV(sp4-el) 79.0 ml EF(MOD-sp4) 45.0 % EF(sp4-el) 46.2 % LVAd ap2 39.2 cm\S\2 LVLd ap2 8.7 cm EDV(MOD-sp2) 147.3 ml EDV(sp2-el) 150.6 ml LVAs ap2 28.1 cm\S\2 LVLs ap2 8.0 cm ESV(MOD-sp2) 82.8 ml ESV(sp2-el) 84.1 ml EF(MOD-sp2) 43.8 % EF(sp2-el) 44.2 % LVLd %diff 3.2 % EDV(MOD-bp) 146.9 ml LVLs %diff 4.1 % ESV(MOD-bp) 82.2 ml EF(MOD-bp) 44.1 % SV(MOD-sp4) 63.7 ml SI(MOD-sp4) 32.2 ml/m\S\2 SV(MOD-sp2) 64.4 ml SI(MOD-sp2) 32.6 ml/m\S\2 SV(MOD-bp) 64.7 ml SI(MOD-bp) 32.7 ml/m\S\2 SV(sp4-el) 67.8 ml SI(sp4-el) 34.3 ml/m\S\2 SV(sp2-el) 66.5 ml SI(sp2-el) 33.6 ml/m\S\2 Doppler Measurements and Calculations MV E max jana 121.9 cm/sec MV A max jana 100.3 cm/sec MV E/A 1.2 MV P1/2t max jana 124.8 cm/sec MV P1/2t 38.3 msec MVA(P1/2t) 5.7 cm\S\2 MV dec slope 953.4 cm/sec\S\2 MV dec time 0.12 sec Ao V2 max 109.5 cm/sec Ao max PG 4.8 mmHg Ao max PG (full) 2.1 mmHg GLENN(V,A) 2.4 cm\S\2 GLENN(V,D) 2.4 cm\S\2 LV V1 max PG 2.7 mmHg LV V1 max 82.0 cm/sec MR max jana 409.6 cm/sec MR max PG 67.1 mmHg TR max jana 354.3 cm/sec
[2017-05-09 11:21] VITALS: BP 163/84; PULSE 76; TEMP 37.7; O2SAT 96
[2017-05-09 11:44] VITALS: Ht 170.2 cm; Wt 84.9 kg
[2017-05-09] MEDS: AMPHETAMINE ASP/SULF/DEXTRAMPH 10 MG TAB PO SCH (12:17)
[2017-05-09] MEDS: AMPHETAMINE-DEXTROAMPHETAMINE 30 MG CAP PO SCH (12:17)
[2017-05-09] MEDS: ADDERALL 30 MG PO SCH (12:18)
[2017-05-09] MEDS: FUROSEMIDE 40 MG TAB PO SCH ×2 (12:42→17:23)
--- NOTE | 2017-05-09 14:20 | Pharmacy Progress Note ---
Glycemic Control Progress Note Date of Service May 09, 2017. Scope Glycemic Pharmacist consulted for glycemic control to write orders per [facility] inpatient glycemic control protocol. Objective Accuchecks BSG (last 24hrs): Test 05/08/17 16:48 05/08/17 20:30 05/09/17 05:26 05/09/17 07:38 Bedside Glucose 259 mg/dl (70-90) 218 mg/dl (70-90) 310 mg/dl (70-90) Random Glucose 367 mg/dl (70-99) Test 05/09/17 11:13 Bedside Glucose 242 mg/dl (70-90) HbA1c: Test 05/09/17 05:26 Hemoglobin A1c 8.6 % (4.5-5.6) H Recent Pertinent Medications Outpatient Anti-diabetic Regimen: * Levemir 13 units twice daily plus Novolog CR of 1 unit per 15 grams of carbohydrates (max 15 units)/ CF of 1 unit for every 70 mg/dL over 130 mg/dL) * A1c = 10 % 01/23/17 Risk Factors for Insulin Resistance: * Diet: type 2 diabetic diet Outpatient Anti-Diabetic Meds see above Assessment & Plan ASSESSMENT: * ADA & AACE recommend a goal blood sugar range 140-180 mg/dl for the majority of critically ill & non-critically ill patients. However, more stringent targets may be selected in individual cases. Will utilize more stringent goal of 110-160mg/dl based on patient age & comorbidities. Additionally, tighter glycemic control is warranted for a brittle diabetic patient. * Ms Zhang is a 52 y/o F admitted 05/08/17 with a PMH of HTN, CKD stage 3, CHF, CAD s/p CABG who is admitted with dyspnea on exertion and leg edema. She was being treated as an outpatient with IV Lasix but this did not alleviate her symptoms. The patient is a type 1 diabetic reasonably well known to the service. Her blood sugars are labile and a broad goal range was established for this. Confirmed home dose of Levemir with nurse. * Patient received around 41 units of insulin yesterday. Her fasting today was 367 mg/dL and she was given 7 units of IV insulin. The nurse and patient reported that she ate PB and crackers after HS accucheck and that these carbohydrates were not covered. This explains the elevated blood sugar. * Post-prandial blood sugars tend to rise throughout the day. Tightened parameters carefully as patient is brittle. * Spoke with patient on the phone today. She states she takes 13 units of Levemir at home; average dose of Novolog is 4-6 units. She states that her blood sugar is high here; she attributes part of it to her laying in bed. Patient was previously on Levemir 16 units twice daily due to infection. PLAN FOR INPATIENT GLYCEMIC CONTROL: * Basal insulin with LANTUS 14 units SQ BID * Correctional Insulin with NOVOLOG / REGULAR per scale ACHS * Goal Range: Low 110 mg/dL - High 160 mg/dL * Correction Factor: 20 mg/dL/unit * Nutritional / Prandial insulin per carb ratio of 1 unit per 12 grams CHO consumed * Please note that the plan above was derived based on current level of insulin resistance and hospital stress. These recommendations are appropriate for inpatient admission only. Plan of care upon discharge will need to be reassessed to avoid potential outpatient hypo/hyperglycemia. Thank you.
[2017-05-09 15:29] VITALS: BP 154/70; PULSE 77; TEMP 36.9; O2SAT 100
[2017-05-09 19:33] VITALS: BP 149/81; PULSE 85; TEMP 37; O2SAT 97
[2017-05-09] MEDS: BISACODYL 5 MG TABEC PO SCH (21:00)
[2017-05-09] MEDS: TRAVOPROST Z 0.004% OPH SOLN 2.5 ML BTL OP SCH (21:23)
[2017-05-09] MEDS: LORAZEPAM 1 MG TAB PO SCH (21:23)
[2017-05-09] MEDS: ASPIRIN 81 MG ECTAB PO SCH (21:25)
--- NOTE | 2017-05-09 23:53 | Progress Note ---
Medicine Progress Note Date & Time of Visit: May 09, 2017 at 13:22. Subjective tolerating PO hemodynamically stable ambulatory and is refusing heparin or SCDs for DVT prophy asymptomatic diuresed well overnight in response to Lasix. Objective Last 8 Hrs Date Time Temp Pulse Resp B/P (MAP) Pulse Ox O2 Delivery O2 Flow Rate FiO2 05/09/17 12:00 Room Air 05/09/17 11:21 37.7 76 16 163/84 (110) 96 05/09/17 08:00 Room Air 05/09/17 07:31 36.8 94 18 164/81 (108) 94 Physical Exam: GEN: WNWD, in no acute distress, alert and appropriate HEENT: NC/AT, pupils are equal and round bilaterally, normal sclerae, MMM NECK: trachea midline, no JVD CARDIO: reg rate, S1/2 heard without m/g/r, no peripheral edema, no abdominal edema LUNGS: CTA bilaterally, no crackles, rales or wheezes, good diaphragmatic excursion ABD: soft, non-tender, non-distended, no rebound or guarding, +BS EXTREMITY: RP and DP palpable 2+ bilat, R heel wound-Stg II, present on arrival , L achilles wound-nondraining, scabbed over-POA, extremities are warm and well- perfused. No evidence of infection surrounding wounds. NEURO: CN 2-12 grossly intact, sensation intact throughout, coordination intact (reflexes) BR 2+ bilat, knee 2+ bilat, achilles 2+ bilat MUSC: 5/5 strength throughout, no focal deficits SKIN: warm and dry Laboratory Results: 05/08/17 06:26 Red Blood Count 3.40, Mean Corpuscular Volume 93.5, Mean Corpuscular Hemoglobin 29.4, Mean Corpuscular Hemoglobin Concent 31.4, Mean Platelet Volume 9.1, Neutrophils (%) (Auto) 53.6, Lymphocytes (%) (Auto) 34.9, Monocytes (%) (Auto) 6.9, Eosinophils (%) (Auto) 4.0, Basophils (%) (Auto) 0.5, Neutrophils # (Auto) 4.45, Lymphocytes # (Auto) 2.89, Monocytes # (Auto) 0.57, Eosinophils # (Auto) 0.33, Basophils # (Auto) 0.04 05/09/17 05:26 Test 05/07/17 18:39 05/08/17 06:26 05/08/17 11:30 05/09/17 05:26 Total Bilirubin 0.2 mg/dl (0.2-1) Direct Bilirubin < 0.1 mg/dl (0-0.2) Aspartate Amino Transf (AST/SGOT) 24 U/L (15-37) Alanine Aminotransferase (ALT/SGPT) 60 U/L (12-78) Alkaline Phosphatase 149 U/L (45-117) Pro-B-Type Natriuretic Peptide 46080 pg/ml (0-900) Total Protein 6.8 gm/dl (6.4-8.2) Albumin 3.7 gm/dl (3.4-5.0) Lipase 122 U/L (73-393) Hepatitis C Antibody Screen NEG (NEG) White Blood Count 8.29 K/uL (4.8-10.8) Red Blood Count 3.40 M/uL (4.2-5.4) Hemoglobin 10.0 g/dL (12.0-16.0) Hematocrit 31.8 % (37-47) Mean Corpuscular Volume 93.5 fL (80-100) Mean Corpuscular Hemoglobin 29.4 pg (25-34) Mean Corpuscular Hemoglobin Concent 31.4 g/dl (32-36) Platelet Count 242 K/uL (130-400) Mean Platelet Volume 9.1 fL (7.4-10.4) Neutrophils (%) (Auto) 53.6 % Lymphocytes (%) (Auto) 34.9 % Monocytes (%) (Auto) 6.9 % Eosinophils (%) (Auto) 4.0 % Basophils (%) (Auto) 0.5 % Neutrophils # (Auto) 4.45 K/uL (1.4-6.5) Lymphocytes # (Auto) 2.89 K/uL (1.2-3.4) Monocytes # (Auto) 0.57 K/uL (0.11-0.59) Eosinophils # (Auto) 0.33 K/uL (0-0.5) Basophils # (Auto) 0.04 K/uL (0-0.2) RDW Standard Deviation 42.9 fL (36.4-46.3) RDW Coefficient of Variation 12.6 % (11.5-14.5) Immature Granulocyte % (Auto) 0.1 % Immature Granulocyte # (Auto) 0.01 K/uL (0.00-0.02) Prothrombin Time 10.0 SECONDS (9.0-12.0) Prothromb Time International Ratio 0.9 (0.9-1.1) Total Creatine Kinase 121 U/L (26-192) Creatine Kinase MB 3.6 ng/ml (0.5-3.6) Creatine Kinase MB Ratio 3.0 (0-3.0) Troponin I 0.159 ng/ml (0-0.045) Urine Color YELLOW Urine Appearance CLEAR (CLEAR) Urine pH 5.0 (4.5-7.5) Urine Specific [place] 1.022 (1.000-1.030) Urine Protein 2+ (NEG) Urine Glucose (UA) TRACE (NEG) Urine Ketones NEG (NEG) Urine Occult Blood 1+ (NEG) Urine Nitrite NEG (NEG) Urine Bilirubin NEG (NEG) Urine Urobilinogen NEG (NEG) Urine Leukocyte Esterase NEG (NEG) Urine WBC (Auto) 1-5 /hpf (0-5) Urine RBC (Auto) 0-4 /hpf (0-4) Urine Hyaline Casts (Auto) 1-5 /lpf (0-5) Urine Epithelial Cells (Auto) >30 /lpf (0-5) Urine Bacteria (Auto) NEG (NEG) Urine Random Creatinine 68.0 mg/dl Urine Random Sodium 56 mEq/L Anion Gap 6.0 mmol/L (3-11) Est Creatinine Clear Calc Drug Dose 38.4 ml/min Estimated GFR () 34.3 Estimated GFR (Non- 29.6 BUN/Creatinine Ratio 26.3 (10-20) Estimated Average Glucose 200 mg/dl Hemoglobin A1c 8.6 % (4.5-5.6) Calcium Level 8.5 mg/dl (8.5-10.1) Magnesium Level 2.2 mg/dl (1.8-2.4) Iron Level 76 mcg/dl (35-150) Total Iron Binding Capacity 274 mcg/dl (250-450) Transferrin 203 mg/dl (200-360) Transferrin % Saturation 27 % (15-50) Ferritin 73.2 ng/ml (8.0-388.0) Beta-Hydroxybutyric Acid 22.79 mg/dL (0.2-2.81) Test 05/09/17 20:08 Bedside Glucose 241 mg/dl (70-90) Last 24 Hours Test 05/08/17 16:48 05/08/17 20:30 05/09/17 05:26 05/09/17 07:38 Bedside Glucose 259 mg/dl 218 mg/dl 310 mg/dl Sodium Level 138 mmol/L Potassium Level 4.7 mmol/L Chloride Level 108 mmol/L Carbon Dioxide Level 24 mmol/L Anion Gap 6.0 mmol/L Blood Urea Nitrogen 50 mg/dl Creatinine 1.90 mg/dl Est Creatinine Clear Calc Drug Dose 38.4 ml/min Estimated GFR () 34.3 Estimated GFR (Non- 29.6 BUN/Creatinine Ratio 26.3 Random Glucose 367 mg/dl Estimated Average Glucose 200 mg/dl Hemoglobin A1c 8.6 % Calcium Level 8.5 mg/dl Magnesium Level 2.2 mg/dl Iron Level 76 mcg/dl Total Iron Binding Capacity 274 mcg/dl Transferrin 203 mg/dl Transferrin % Saturation 27 % Ferritin 73.2 ng/ml Beta-Hydroxybutyric Acid 22.79 mg/dL Test 05/09/17 11:13 Bedside Glucose 242 mg/dl Assessment & Plan 52 yo F with h/o diastolic CHF with RV dysfunction, recently admitted for CHF exacerbation, presents with failed outpatient therapy for recurring CHF exacerbation. 1. CHF exacerbation- R-sided heart failure with diastolic dysfunction, acute on chronic. Likely causes include COPD and SUGEY as well as uncontrolled DM and long-standing HTN. Echo performed today revealed RV systolic dysfunction. IV diuresis switched to PO Lasix per cards and nephro. She has cardiorenal syndrome. Cont accurate I/Os, daily weights and cont with cardiology recommendations. 2. CKD III-at baseline. Cont diuresis with PO lasix, trend PRP. Dr. Osborne following. 3. CAD s/p CABG/PCD-stable, no chest pain or evidence of active ischemia. Cont ASA 162, Lopressor 25 BID. Notably allergic to statins, Plavix. 4. DMII-on insulin. Uncontrolled this morning as snack was not covered overnight. Discussed the plan with glycemic pharmacist and ordered stricter insulin control with some improvement. 5. Gastroparesis-Reglan TID WM. Zofran held in light of QT prolongation. 6. h/o SUGEY-on CPAP 7. Anemia-chronic, at baseline. Likely multifactorial with ACD and anemia related to CKD. Monitor PRN. 8. Bipolar-on Trintellix per home meds, Ativan 1mg PO QHS, and Adderall. Pt in the process of changing mental health providers and reducing amphetamine dosage. Currently on 30mg daily. 9. Stg II heel ulcer on Right, POA, L heel wound-POA. Wound care consult ordered. Diabetic patient with peripheral neuropathy. No infection apparent. Optifoam is in place. 10. Tobacco use-encouraged to quit smoking. DVT [id number]-Iizmmrz-huenyded. SCDs ordered and encouraged. Full Code Disposition-anticipate DC home after adequate diuresis. Will trend daily weights and monitor output and clinical improvement closely. Sandra Amanda DO [facility] Hospitalist. Consultants: [facility]. Current Inpatient Medications: Current Inpatient Medications Medications (Trade) Dose Ordered Sig/Kike Route Start Time Stop Time Status Last Admin Dose Admin Insulin Aspart (novoLOG ASPART) SLIDING SCALE If C... ACHS SC 05/07/17 21:00 06/06/17 20:59 05/09/17 12:19 9 UNITS Glucose (Glucose 40% Gel) 15-30 GRAMS 15 GRAMS... UD PRN PO 05/07/17 20:15 06/06/17 20:14 Glucose (Glucose Chew Tab) 4-8 Tablets 4 Tabl... UD PRN PO 05/07/17 20:15 06/06/17 20:14 Dextrose (Dextrose 50% 50ML Syringe) 25-50ML OF 50% DW IV FOR... UD PRN IV 05/07/17 20:15 06/06/17 20:14 Glucagon (Glucagon Inj) 1 mg UD PRN SQ 05/07/17 20:15 06/06/17 20:14 Miscellaneous (Iv Fluids Completed) 1 ea PRN PRN N/A 05/07/17 20:30 05/07/18 20:29 Heparin Sodium (Porcine) (Heparin Sq 5000 Unit/0.5ml) 5,000 unit Q8 SQ 05/08/17 14:00 06/07/17 13:59 Acetaminophen (Tylenol Tab) 650 mg Q4H PRN PO 05/07/17 20:15 06/06/17 20:14 Aspirin (Ecotrin Tab) 162 mg HS PO 05/07/17 21:00 06/06/17 20:59 05/08/17 21:00 162 MG Bisacodyl (Dulcolax Tab) 15 mg HS PO 05/07/17 21:00 06/06/17 20:59 05/08/17 20:59 15 MG Loratadine (Claritin Tab) 10 mg QAM PO 05/08/17 09:00 06/07/17 08:59 05/09/17 07:59 10 MG Lorazepam (Ativan Tab) 1 mg HS PO 05/07/17 21:00 06/06/17 20:59 05/08/17 20:59 1 MG Metoprolol Tartrate (Lopressor Tab) 25 mg BID PO 05/07/17 21:00 06/06/17 20:59 05/09/17 07:59 25 MG Pantoprazole Sodium (Protonix Tab) 40 mg BID PO 05/07/17 21:00 06/06/17 20:59 05/09/17 07:59 40 MG Ranitidine HCl (zANTac TAB) 150 mg BID PO 05/07/17 21:00 06/06/17 20:59 05/09/17 07:59 150 MG Travoprost (Travatan Z) 1 drops HS OP 05/07/17 21:00 06/06/17 20:59 05/08/17 20:59 1 DROPS Miscellaneous Information (Order Awaiting Action) 1 ea QS N/A 05/08/17 00:00 06/07/17 00:00 Amphetamine Aspartate/ Amphetam Sulf (Amphetamine Aspartate/Amph Sulf/Dextramphet) 10 mg QDL PO 05/08/17 12:00 05/22/17 11:59 05/09/17 12:17 10 MG Vortioxetine (Trintellix) 20 mg DAILY PO 05/08/17 09:00 06/07/17 08:59 05/09/17 08:00 20 MG Linaclotide (Linzess) 145 mcg DAILY PO 05/08/17 09:00 06/07/17 08:59 05/09/17 08:00 145 MCG Thyroid (Wp Thyroid) 65 mg DAILY PO 05/08/17 09:00 06/07/17 08:59 05/09/17 08:00 65 MG Miscellaneous Information (Consult Glycemic Management Pharmacy) 1 ea UD PRN N/A 05/08/17 09:05 06/07/17 09:04 Metoclopramide HCl (Reglan Tab) 10 mg QID PO 05/08/17 09:00 06/07/17 08:59 05/09/17 12:18 10 MG Amphetamine/ Dextroamphetamine (Adderall Xr 30 Mg) 30 mg QDL PO 05/08/17 12:00 06/07/17 11:59 05/09/17 12:17 30 MG Non-Formulary Medication (Patient'S Own Controlled Med) 1 ea QDL PO 05/08/17 12:00 05/22/17 11:59 05/09/17 12:18 1 EA Insulin Detemir (Levemir Flexpen/ FlexTouch) 14 units BID SC 05/09/17 09:00 06/08/17 08:59 05/09/17 08:22 14 UNITS Furosemide (Lasix Tab) 40 mg BID17 PO 05/09/17 09:30 06/08/17 09:29 05/09/17 12:42 40 MG
[2017-05-10] VITALS: BP 138/82; PULSE 74; TEMP 36.9; O2SAT 97
[2017-05-10 05:19] VITALS: BP 157/77; PULSE 73; TEMP 36.5; O2SAT 97
[2017-05-10] MEDS: HEPARIN SOD 5000 UNIT/0.5 ML CARP SQ SCH ×2 (05:34→11:59)
[2017-05-10 06:44] LABS: HEMATOCRIT 32.5 % (37-47); MEAN CELL VOLUME 92.1 fL (80-100); MEAN CORPUSCULAR HEMOGLOBIN 29.5 pg (25-34); MEAN PLATELET VOLUME 8.5 fL (7.4-10.4); PLATELET COUNT 210 K/uL (130-400); RED BLOOD COUNT 3.53 M/uL (4.2-5.4)
[2017-05-10 07:18] LABS: BUN/CREATININE RATIO 27.7 (10-20); CALCIUM 8.9 mg/dl (8.5-10.1); CREATININE 1.8 mg/dl (0.60-1.20); MAGNESIUM 2.1 mg/dl (1.8-2.4); POTASSIUM 4.2 mmol/L (3.5-5.1)
[2017-05-10 07:49] VITALS: BP 138/72; PULSE 78; TEMP 36.9; O2SAT 93
[2017-05-10] MEDS: PATADAY~ORDER AWAITING ACTION SCH ×2 (08:00)
[2017-05-10 08:13] VITALS: BP 141/84; PULSE 80
[2017-05-10] MEDS: LINACLOTIDE 145 MCG CAP PO SCH (08:14)
[2017-05-10] MEDS: VORTIOXETINE HBR 20 MG PO SCH (08:17)
[2017-05-10] MEDS: THYROID 65 MG PO SCH (08:17)
[2017-05-10] MEDS: METOCLOPRAMIDE HCL 10 MG TAB PO SCH ×2 (08:18→11:56)
[2017-05-10] MEDS: METOPROLOL TARTRATE 25 MG TAB PO SCH (08:18)
[2017-05-10] MEDS: PANTOprazole SOD 40 MG TAB PO SCH (08:19)
[2017-05-10] MEDS: LORATADINE 10 MG TAB PO SCH (08:19)
[2017-05-10] MEDS: FUROSEMIDE 40 MG TAB PO SCH (08:19)
[2017-05-10] MEDS: RANITIDINE HCL 150 MG TAB PO SCH (08:19)
[2017-05-10] MEDS: INSULIN DETEMIR FLEXPEN/FLEX TOUCH 100 UNITS/ML 3ML SC SCH (08:26)
[2017-05-10] MEDS: INSULIN ASPART 100 UNITS/ML 3 ML PEN SC SCH ×2 (08:26→11:58)
--- NOTE | 2017-05-10 09:17 | Nephrology Progress Note ---
Nephrology Progress Note Date of Service May 10, 2017. Chief Complaint Chronic kidney disease Subjective No acute events overnight. No complaints this morning. Edema improved. Denies significant dyspnea. Stable orthopnea. No urinary complaints. Appetite good. Cindy is hopeful that she can be discharged home today. Review of Systems A complete review of systems was performed. Pertinent positives are noted above. All other systems are negative. Vital Signs Last 8 Hrs Date Time Temp Pulse Resp B/P (MAP) Pulse Ox O2 Delivery O2 Flow Rate FiO2 05/10/17 08:13 80 141/84 (103) 05/10/17 08:00 Room Air 05/10/17 07:49 36.9 78 16 138/72 (94) 93 Room Air 05/10/17 05:19 36.5 73 16 157/77 (103) 97 Room Air 05/10/17 04:00 Room Air Last Recorded Weight Weight (Kilograms): 84.900 Physical Exam General Appearance: WD/WN, no apparent distress Head: normocephalic, atraumatic Eyes: normal inspection, sclerae normal ENT: normal ENT inspection, pharynx normal Neck: supple, + JVD (improved) Respiratory/Chest: lungs clear, no respiratory distress, no accessory muscle use Cardiovascular: regular rate, rhythm, no gallop, no murmur Abdomen/GI: non tender, soft Extremities/Musculoskelatal: normal inspection, + pedal edema (improved) Neurologic/Psych: alert, normal mood/affect Family History FH: CAD (coronary artery disease) FATHER (ID at age 47, CABG x 4 ) CAD and CVA Social History Smoking Status: Former smoker Smokeless Tobacco Use: No Alcohol Use: none Drug Use: none Marital Status: Housing Status: lives with significant other 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6 Estimated GFR (Non- 31.6 BUN/Creatinine Ratio 27.7 (10-20) Calcium Level 8.9 mg/dl (8.5-10.1) Magnesium Level 2.1 mg/dl (1.8-2.4) Test 05/10/17 07:05 Bedside Glucose 172 mg/dl (70-90) Allergies Coded Allergies: Penicillins (Verified Allergy, Intermediate, BLOTCHY SKIN/ ITCHY, 02/28/17) Vancomycin (Unverified Allergy, Intermediate, SHORTNESS OF BREATH, 02/28/17 ) Clopidogrel (Verified Allergy, Mild, rash, 02/28/17) rash due to Plavix or ertapenem Ertapenem (Verified Allergy, Mild, rash, 02/28/17) rash due to Plavix or ertapenem? Cephalosporins (Verified Allergy, Unknown, CECLOR-UNKNOWN, 02/28/17) Erythromycin (Unverified Allergy, Unknown, FROM H AND P-RASH, 02/28/17) Statins (Unverified Allergy, Unknown, MYALGIA, 02/28/17) Codeine (Verified Adverse Reaction, Unknown, VOMITING, 02/28/17) Nitrofurantoin (Unverified Adverse Reaction, Unknown, vomiting, 02/28/17) Pregabalin (Unverified Adverse Reaction, Unknown, VERY EMOTIONAL CRYING, ) Medications Current Inpatient Medications Medications (Trade) Dose Ordered Sig/Kike Route Start Time Stop Time Status Last Admin Dose Admin Insulin Aspart (novoLOG ASPART) SLIDING SCALE If C... ACHS SC 05/07/17 21:00 06/06/17 20:59 05/10/17 08:26 5 UNITS Glucose (Glucose 40% Gel) 15-30 GRAMS 15 GRAMS... UD PRN PO 05/07/17 20:15 06/06/17 20:14 Glucose (Glucose Chew Tab) 4-8 Tablets 4 Tabl... UD PRN PO 05/07/17 20:15 06/06/17 20:14 Dextrose (Dextrose 50% 50ML Syringe) 25-50ML OF 50% DW IV FOR... UD PRN IV 05/07/17 20:15 06/06/17 20:14 Glucagon (Glucagon Inj) 1 mg UD PRN SQ 05/07/17 20:15 06/06/17 20:14 Miscellaneous (Iv Fluids Completed) 1 ea PRN PRN N/A 05/07/17 20:30 05/07/18 20:29 Heparin Sodium (Porcine) (Heparin Sq 5000 Unit/0.5ml) 5,000 unit Q8 SQ 05/08/17 14:00 06/07/17 13:59 Acetaminophen (Tylenol Tab) 650 mg Q4H PRN PO 05/07/17 20:15 06/06/17 20:14 Aspirin (Ecotrin Tab) 162 mg HS PO 05/07/17 21:00 06/06/17 20:59 05/09/17 21:25 162 MG Bisacodyl (Dulcolax Tab) 15 mg HS PO 05/07/17 21:00 06/06/17 20:59 05/08/17 20:59 15 MG Loratadine (Claritin Tab) 10 mg QAM PO 05/08/17 09:00 06/07/17 08:59 05/10/17 08:19 10 MG Lorazepam (Ativan Tab) 1 mg HS PO 05/07/17 21:00 06/06/17 20:59 05/09/17 21:23 1 MG Metoprolol Tartrate (Lopressor Tab) 25 mg BID PO 05/07/17 21:00 06/06/17 20:59 05/10/17 08:18 25 MG Pantoprazole Sodium (Protonix Tab) 40 mg BID PO 05/07/17 21:00 06/06/17 20:59 05/10/17 08:19 40 MG Ranitidine HCl (zANTac TAB) 150 mg BID PO 05/07/17 21:00 06/06/17 20:59 05/10/17 08:19 150 MG Travoprost (Travatan Z) 1 drops HS OP 05/07/17 21:00 06/06/17 20:59 05/09/17 21:23 1 DROPS Miscellaneous Information (Order Awaiting Action) 1 ea QS N/A 05/08/17 00:00 06/07/17 00:00 Amphetamine Aspartate/ Amphetam Sulf (Amphetamine Aspartate/Amph Sulf/Dextramphet) 10 mg QDL PO 05/08/17 12:00 05/22/17 11:59 05/09/17 12:17 10 MG Vortioxetine (Trintellix) 20 mg DAILY PO 05/08/17 09:00 06/07/17 08:59 05/10/17 08:17 20 MG Linaclotide (Linzess) 145 mcg DAILY PO 05/08/17 09:00 06/07/17 08:59 05/09/17 08:00 145 MCG Thyroid (Wp Thyroid) 65 mg DAILY PO 05/08/17 09:00 06/07/17 08:59 05/10/17 08:17 65 MG Miscellaneous Information (Consult Glycemic Management Pharmacy) 1 ea UD PRN N/A 05/08/17 09:05 06/07/17 09:04 Metoclopramide HCl (Reglan Tab) 10 mg QID PO 05/08/17 09:00 06/07/17 08:59 05/10/17 08:18 10 MG Amphetamine/ Dextroamphetamine (Adderall Xr 30 Mg) 30 mg QDL PO 05/08/17 12:00 06/07/17 11:59 05/09/17 12:17 30 MG Non-Formulary Medication (Patient'S Own Controlled Med) 1 ea QDL PO 05/08/17 12:00 05/22/17 11:59 05/09/17 12:18 1 EA Insulin Detemir (Levemir Flexpen/ FlexTouch) 14 units BID SC 05/09/17 09:00 06/08/17 08:59 05/10/17 08:26 14 UNITS Furosemide (Lasix Tab) 40 mg BID17 PO 05/09/17 09:30 06/08/17 09:29 05/10/17 08:19 40 MG Impression (1) Cardiorenal syndrome (2) Acute on chronic diastolic CHF (congestive heart failure) (3) CKD (chronic kidney disease) stage 3, GFR 30-59 ml/min (4) Diabetes mellitus type 1 (5) HTN (hypertension) Cindy Zhang is a 52-year-old female with chronic kidney disease class III. She was admitted with acute on chronic diastolic CHF and predominately R CHF. She has a history of diuretic resistance and cardiorenal syndrome. She responded appropriately to 40 mg IV furosemide. Oral Lasix will be continued to encourage a slightly negative fluid balance. She has responded well to 40 mg BID. Thigh high TEDS to be used as tolerated. Cindy has a complicated history of recurrent hospitalization due to diuretic resistance and fluid retention. She is not hypoalbuminemic. Urine sodium is appropriate while off diuretics. She did respond to IV furosemide. She has started treatment for SUGEY. The importance of compliance with therapy including treatment of SUGEY as well as dietary sodium restriction was reviewed. Recommendations CKD: -- Attributed to diabetes mellitus, hypertension, tobacco use, microvascular disease and cardiorenal syndrome -- Fluctuates with volume status and EAV -- Cr stable at 1.8 mg/dL -- UA/microscopy reviewed -- Medications appropriate for renal function -- Follow up with me in the nephrology clinic within 1 week of discharge -- Repeat metabolic profile early next week (results can be faxed to my office at [phone]) Diastolic CHF/R heart failure: -- Continue furosemide 40 mg BID Anemia: -- Iron profile acceptable -- No changes at this time
--- NOTE | 2017-05-10 10:44 | Clinical Documentation Query ---
CLINICAL VALIDATION QUERY QUERY 1 OF 2 52 yo F with h/o diastolic CHF with RV dysfunction, recently admitted for CHF exacerbation, presents with failed outpatient therapy for recurring CHF exacerbation. There is a potential conflict in documentation. 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 Pressure ulcers are defined as: Stage 1 Pressure Injury: Non-blanchable erythema of intact skin Intact skin with a localized area of non-blanchable erythema, which may appear differently in darkly pigmented skin. Presence of blanchable erythema or changes in sensation, temperature, or firmness may precede visual changes. Color changes do not include purple or maroon discoloration; these may indicate deep tissue pressure injury. Stage 2 Pressure Injury: Partial-thickness skin loss with exposed dermis Partial-thickness loss of skin with exposed dermis. The wound bed is viable, pink or red, moist, and may also present as an intact or ruptured serum-filled blister. Adipose (fat) is not visible and deeper tissues are not visible. Granulation tissue, slough and eschar are not present. These injuries commonly result from adverse microclimate and shear in the skin over the pelvis and shear in the heel. This stage should not be used to describe moisture associated skin damage (MASD) including incontinence associated dermatitis (IAD), intertriginous dermatitis (ITD), medical adhesive related skin injury (MARSI), or traumatic wounds (skin tears, fang, abrasions). Stage 3 Pressure Injury: Full-thickness skin loss Full-thickness loss of skin, in which adipose (fat) is visible in the ulcer and granulation tissue and epibole (rolled wound edges) are often present. Slough and/or eschar may be visible. The depth of tissue damage varies by anatomical location; areas of significant adiposity can develop deep wounds. Undermining and tunneling may occur. Fascia, muscle, tendon, ligament, cartilage and/or bone are not exposed. If slough or eschar obscures the extent of tissue loss this is an Unstageable Pressure Injury. Stage 4 Pressure Injury: Full-thickness skin and tissue loss Full-thickness skin and tissue loss with exposed or directly palpable fascia, muscle, tendon, ligament, cartilage or bone in the ulcer. Slough and/or eschar may be visible. Epibole (rolled edges), undermining and/or tunneling often occur. Depth varies by anatomical location. If slough or eschar obscures the extent of tissue loss this is an Unstageable Pressure Injury. Unstageable Pressure Injury: Obscured full-thickness skin and tissue loss Full-thickness skin and tissue loss in which the extent of tissue damage within the ulcer cannot be confirmed because it is obscured by slough or eschar. If slough or eschar is removed, a Stage 3 or Stage 4 pressure injury will be revealed. Stable eschar (i.e. dry, adherent, intact without erythema or fluctuance) on the heel or ischemic limb should not be softened or removed. Reference:National Pressure Ulcer Advisory Panel (NPUAP) QUERY 2 OF 2 There is a potential conflict in documentation: Provider documented left heel wound, POA; hydroelectric machinery mechanic helper did not document any wound to left heel. Please clarify the specific type of wound and associated severity as appropriate. Please clarify and document your clinical opinion in the progress notes and discharge summary. Terms such as "probable", "suspected", "likely", "questionable", "possible", or "still to be ruled out" are acceptable. IF IN AGREEMENT, YOU MUST DOCUMENT ABOVE DIAGNOSTIC STATEMENT IN DAILY PROGRESS NOTES AND DISCHARGE SUMMARY. This document is not part of the patient's record. Thank You, Kristi Iglesias RN [phone]
--- NOTE | 2017-05-10 10:49 | Cardiology Follow-Up ---
Subjective General Date of Service: May 10, 2017. Chief Complaint: dyspnea Pt evaluation today including: conversation w/ patient, physical exam, chart review, lab review, review of studies, review of inpatient medication list History of Present Illness Patient seen and examined. Feeling better. Fluid improved. Stable dyspnea and orthopnea. No chest pain or palpitations. I/O's are negative 1,935 mL overall with patient reporting additional urine output of 700 ml's last night and 400 ml's ths morning that was not recorded. Telemetry: Currently sinus at 84 bpm. No significant bradycardia or pauses. No atrial arrhythmias. Abdominal ultrasound was without ascites this admission May 08, 2017 TTE Interpretation Summary ([facility], Dr. Zapata): Normal LV chamber size with mild concentric LVH. Normal LV systolic function, EF 55-60%. No segmental left ventricular wall motion abnormalities are noted. Flattened septum is consistent with RV pressure/volume overload. The right ventricular cavity size is enlarged (proximal parasternal long axis right ventricular outflow tract dimension >3.3 cm). The right ventricular systolic function is reduced as assessed by tricuspid annular plane systolic excursion (TAPSE) ( TAPSE <1.6 cm). Aortic valve sclerosis moderate, without significant aortic valvular stenosis. Mild tricuspid regurgitation. Pulmonary hypertension is present, PASP of 53 mmHg assuming a RA pressure of 3 mmHg. Allergies Coded Allergies: Penicillins (Verified Allergy, Intermediate, BLOTCHY SKIN/ ITCHY, 02/28/17) Vancomycin (Unverified Allergy, Intermediate, SHORTNESS OF BREATH, 02/28/17 ) Clopidogrel (Verified Allergy, Mild, rash, 02/28/17) rash due to Plavix or ertapenem Ertapenem (Verified Allergy, Mild, rash, 02/28/17) rash due to Plavix or ertapenem? Cephalosporins (Verified Allergy, Unknown, CECLOR-UNKNOWN, 02/28/17) Erythromycin (Unverified Allergy, Unknown, FROM H AND P-RASH, 02/28/17) Statins (Unverified Allergy, Unknown, MYALGIA, 02/28/17) Codeine (Verified Adverse Reaction, Unknown, VOMITING, 02/28/17) Nitrofurantoin (Unverified Adverse Reaction, Unknown, vomiting, 02/28/17) Pregabalin (Unverified Adverse Reaction, Unknown, VERY EMOTIONAL CRYING, 6 /29/17) Social History Smoking Status: Current Every Day Smoker Hx Tobacco Use In Past Year?: Yes Hx Alcohol Use - Type And Amou: No Hx Substance Use - Type And Am: No Problem List Medical Problems: (1) Acute coronary syndrome Status: Acute (2) Congestive heart failure Status: Acute (3) Elevated d-dimer Status: Acute (4) History of CHF (congestive heart failure) Status: Acute (5) History of coronary artery disease Status: Acute (6) Renal insufficiency Status: Acute (7) SOB (shortness of breath) Status: Acute Physical Exam Vital Signs Last Vital Signs Documentation Date Time Temp Pulse Resp B/P (MAP) Pulse Ox O2 Delivery O2 Flow Rate FiO2 05/10/17 08:13 80 141/84 (103) 05/10/17 08:00 Room Air 05/10/17 07:49 36.9 16 93 Physical Exam Constitutional: Level of Distress: NAD Ambulation: ambulating normally Psychiatric: Mental Status: active & alert Orientation: to time, to place, to person Memory: recent memory normal, remote memory normal Head: normocephalic, atraumatic Eyes: Pupils: PERRLA Neck: pertinent finding (6 cm of JVP. + HJR) Lungs: Auscultation: no wheezing, no rales/crackles, no rhonchi, deminished air movement, decreased breath sounds Cardiovascular: Heart Auscultation: RRR, normal S1, normal S2, no rubs, II/ JONA Peripheral Pulses: Bruits: carotid bruit on the left, carotid bruit on the right Radial Pulse: normal on the left, normal on the right Dorsalis Pedis Pulse: absent on the left, absent on the right Abdomen: Bowel Sounds: normal Inspection & Palpation: soft Extremities: no cyanosis, no clubbing, edema (indurated edema in the tighs. minimal distal bilateral lower extremity edema) Neurologic: Cranial Nerves: grossly intact Assessment and Plan Assessment and Plan Complex 52 year old female admitted with continued complaints of acute on chronic dyspnea, abdominal fullness/distention, lower extremity peripheral edema , and weight gain despite multiple daily doses of outpatient IV diuretic therapy. Patient has responded in inpatient management; strict sodium and fluid restrictions have resulted in a negative fluid balance allowing for reduction in diuretic therapy, some improvement in renal dysfunction. RECOMMENDATIONS: Furosemide 40 mg twice a day. No torsemide. No metolazone. Fluid restrict to 1,500 mL's per day Sodium restriction less than 2,000 mg/day and preferably less than 1,500 mg/day. Thigh high compression stockings, on in the AM and off in the PM. CPAP with supplemental oxygen QHS and when napping during the day. Nephrology follow-up scheduled in one week. Cardiology follow-up will be scheduled in two weeks or as needed. Cardiology attending: Pt seen and examined, agree with findings and assessment as per Sandeep Finch. Diuretics and follow up as above. Ok to d/c to home from cardiac standpoint. Laboratory Results Last 24 Hours Test 05/09/17 11:13 05/09/17 16:57 05/09/17 20:08 05/10/17 06:37 Bedside Glucose 242 mg/dl 117 mg/dl 241 mg/dl White Blood Count 7.70 K/uL Red Blood Count 3.53 M/uL Hemoglobin 10.4 g/dL Hematocrit 32.5 % Mean Corpuscular Volume 92.1 fL Mean Corpuscular Hemoglobin 29.5 pg Mean Corpuscular Hemoglobin Concent 32.0 g/dl RDW Standard Deviation 41.5 fL RDW Coefficient of Variation 12.3 % Platelet Count 210 K/uL Mean Platelet Volume 8.5 fL Sodium Level 139 mmol/L Potassium Level 4.2 mmol/L Chloride Level 110 mmol/L Carbon Dioxide Level 24 mmol/L Anion Gap 5.0 mmol/L Blood Urea Nitrogen 50 mg/dl Creatinine 1.80 mg/dl Est Creatinine Clear Calc Drug Dose 40.5 ml/min Estimated GFR () 36.6 Estimated GFR (Non- 31.6 BUN/Creatinine Ratio 27.7 Random Glucose 178 mg/dl Calcium Level 8.9 mg/dl Magnesium Level 2.1 mg/dl Test 05/10/17 07:05 Bedside Glucose 172 mg/dl
[2017-05-10 11:49] VITALS: BP 141/84; PULSE 80; TEMP 36.9; O2SAT 93
[2017-05-10] MEDS: AMPHETAMINE-DEXTROAMPHETAMINE 30 MG CAP PO SCH (11:55)
[2017-05-10] MEDS: ADDERALL 30 MG PO SCH (11:55)
[2017-05-10] MEDS: AMPHETAMINE ASP/SULF/DEXTRAMPH 10 MG TAB PO SCH (11:55)
--- NOTE | 2017-05-10 13:22 | Pharmacy Progress Note ---
Glycemic Control Progress Note Date of Service May 10, 2017. Scope Glycemic Pharmacist consulted for glycemic control to write orders per [facility] inpatient glycemic control protocol. Objective Accuchecks BSG (last 24hrs): Test 05/09/17 16:57 05/09/17 20:08 05/10/17 06:37 05/10/17 07:05 Bedside Glucose 117 mg/dl (70-90) 241 mg/dl (70-90) 172 mg/dl (70-90) Random Glucose 178 mg/dl (70-99) Test 05/10/17 11:07 Bedside Glucose 256 mg/dl (70-90) HbA1c: Test 05/09/17 05:26 Hemoglobin A1c 8.6 % (4.5-5.6) H Recent Pertinent Medications The patient is currently receiving: * Basal insulin: Levemir 14 units every 12 hours * Correctional Insulin: Novolog Correction per scale ACHS Goal Range: Low 110 mg/dL - High 160 mg/dL Correction Factor: 20 mg/dL/unit * Prandial insulin: Per carb ratio of 1 unit per 12 grams CHO consumed Assessment & Plan ASSESSMENT: * See progress note from 05/09 for more background info, in short: * Pt receiving SQ basal bolus insulin regimen for hyperglycemia secondary to baseline DM (outpatient regimen on hold) * Patient is currently receiving an average of 54 units of insulin per day * BSGs ranging 117 - 256 mg/dl over the past 24hrs * Changes needed to insulin regimen: * AM Fasting BSG = 172 mg/dl. This is slightly above goal range for patient based on inpatient targets and co-morbidities. Therefore Basal insulin needs increased. Will do so cautiously since patient is an insulin sensitive type 1 diabetic. * Post-prandial BSGs are elevated/BSGs rise throughout the day therefore need to tighten CF/CR. Of note, pharmacy was made aware last night that patient was snacking. Will tighten CR but not be too aggressive PLAN FOR INPATIENT GLYCEMIC CONTROL: * Increase Levemir to 15 units BID * TIGHTEN CR to 10 * LOOSEN CF back to 25 to prevent too much correctional insulin (patient uses 1: 70 as an outpatient) * TIGHTEN goal range to 110-150 RECOMMENDATIONS FOR DISCHARGE: * A1c has improved significantly. Continue outpatient regimen with close follow -up with physician. Thank you.
[2017-05-10] MEDS ORDERED: METO5TAB25 PO (14:03)
[2017-05-10] MEDS ORDERED: LSX40 PO (14:03)
--- NOTE | 2017-05-10 14:18 | Discharge Instructions ---
Discharge Instructions Date of Service May 10, 2017. Admission Reason for Admission: Acute On Chronic Diastolic Chf Discharge Discharge Diagnosis / Problem: Acute on chronic diastolic CHF Discharge Goals Goal(s): Prevent Disease Progression Activity Recommendations Activity Limitations: per Instructions/Follow-up section . Instructions / Follow-Up Instructions / Follow-Up Call your Primary Care doctor if any of the following symptoms or problems start or get worse: * Shortness of breath or difficulty breathing * Wake up at night short of breath * Chest pain * Cough * Swelling of your hands, feet, or legs * More fatigued or tired with your normal activity * Palpitations - sudden fast heart beats WEIGHT * Weigh yourself every morning after using the bathroom. * Use the same scale. * Wear the same amount of clothing. * Write your weight down on a chart. * Call your Primary Care doctor if you gain more than 2-3 pounds in 1-2 days. MEDICATIONS * Use this discharge instruction sheet for medication instructions. * Take your medications at the time your doctor ordered. * Do not skip a dose of your medicines. * If you miss a dose of medicine, take it as soon as possible, but DO NOT DOUBLE A DOSE. * Read your medicine information when you get home. * Know all of the side effects of your medicine. If in doubt, ask your pharmacist * Call your Primary Care doctor's office if you have any side effects. * Be sure all of your doctors know what medicine and herbs you take (including cold, flu, and herbal medicine). Take the following with you to your follow-up doctor appointments: * Weight Chart * Medication List * List of questions Do not drink excessive alcohol, beer or wine. Additional Provider Instructions: -Please take all medications as instructed. Please note changes above. -It is recommended that you follow-up with Nephrology in one week and Cardiology in two weeks. Please call the office to schedule. -Please restrict sodium intake to <2000mg per day and preferably <1500mg per day and restrict fluids to 1500 mls daily. -Please continue to wear compression stockings as instructed by Cardiology team -You have a follow-up appointment with Dr. Devon Biggs for 05/15 @ 10:55 for follow-up from this hospitalization. It was a pleasure taking care of you! Call if you have any questions or problems. You can reach a [facility] hospitalist on duty at [facility] 24 hours a day by calling [phone]. Take care of yourself. Sandra Amanda DO [facility] Hospitalist Current Hospital Diet Patient's current hospital diet: Diabetes Type 2 Diet, AHA Diet (Heart Healthy) Discharge Diet Recommended Diet: Low Sodium Diet (2gm Na), Diabetes Type 2 Diet Pending Studies Studies pending at discharge: no Laboratory Results Hemoglobin A1c Test 05/09/17 05:26 Range/Units Estimated Average Glucose 200 mg/dl Hemoglobin A1c 8.6 H 4.5-5.6 % Medical Emergencies . Who to Call and When: Call 911 or go to the Emergency Room if: * If at any time you feel your situation is an emergency * You have tightness or pain in your chest that does not go away with rest or Nitroglycerin * You are very short of breath even with rest . Non-Emergent Contact Non-Emergency issues call your: Primary Care Provider . . "Provider Documentation" section prepared by Sandra Amanda. . VTE Core Measure Inpt VTE Proph given/why not?: Refusal of treatmnt by pt
[2017-05-10] MEDS ORDERED: INSULIN DETEMIR FLEXPEN/FLEX TOUCH 100 UNITS/ML 3ML SC SCH (21:00)
--- NOTE | 2017-05-11 22:54 | Discharge Summary ---
Discharge Summary Date of Service May 11, 2017. Discharge Summary Admission Date: May 09, 2017 at 09:37 Discharge Date: May 10, 2017 Principal Diagnosis: Acute on chronic R-sided heart failure with diastolic dysfunction CKD III CAD s/p CABG DMII Gastroparesis 2/2 diabetes h/o SUGEY Anemia of chronic disease Bipolar disorder Stg II heel ulcer R L foot wound Tobacco use Procedures: TTE Vaccinations: None. Consultations: Cards Nephro Wound Care. Pending Studies/Follow-Up: see instructions below. Medication Reconciliation New Medications: Furosemide (Furosemide) 40 Mg Tab 40 MG PO BID17 for 30 Days, #60 TAB Continued Medications: Acetaminophen (Tylenol) 500 Mg Tab 1000 MG PO QID, TAB Amphetamine-Dextroamphetamine 10MG (Adderall 10MG) 1 Tab Tab 10 MG PO BID, TAB Amphetamine-Dextroamphetamine 30MG (Adderall Xr 30MG) 1 Cap Cap 30 MG PO BID, CAP Aspirin (Aspirin Ec) 81 Mg Tab 162 MG PO HS Biotin (Biotin 5000) 5 Mg Cap 5 MG PO QPM Bisacodyl (Bisacodyl EC) 5 Mg Tabec 15 MG PO HS Cholecalciferol (D-5000) 5,000 Unit Tab 5000 UNITS PO DAILY for 30 Days, TAB 3 Refills Cranberry (Vaccinium Macrocarp (Cranberry Extract) 250 Mg Tab 500 MG PO QAM Insulin Aspart (Novolog) 100 Units/Ml Inj 1 UNIT SC AC per sliding scale, 1:15 for carbs coverage, max 15 units; also uses correction factor 70mg/dL/unit for elevatations above 130 Insulin Detemir (Levemir) 100 Units/Ml Inj 16 UNITS SC BID Linaclotide (Linzess) 145 Mcg Cap 145 MCG PO QAM Loratadine (Claritin) 10 Mg Tab 10 MG PO QAM, TAB Lorazepam (Lorazepam) 1 Mg Tab 1 MG PO HS Metoclopramide Hcl (Reglan) 10 Mg Tab 10 MG PO QID, TAB Metoprolol Tartrate (Lopressor) (Lopressor) 25 Mg Tab 25 MG PO BID, TAB Olopatadine Hydrochloride (Pataday) 37 Drops/2.5 Ml Soln 1 DROPS OPB DAILY PRN for prn, ML Ondansetron (Ondansetron HCl) 8 Mg Tab 8 MG PO TID Pantoprazole (Protonix) 40 Mg Tab 40 MG PO BID, 0 Refills Ranitidine (Zantac) 150 Mg Tab 150 MG PO BID, TAB Thyroid ([place] Thyroid) 120 Mg Tab 1 TAB PO DAILY Travoprost (Travatan Z) 0.004 % Rodney 1 DROPS OP HS, #1 BTL 5 Refills Vortioxetine HBr (Trintellix) 20 Mg Tab 30 MG PO QAM Discontinued Medications: Doxycycline Hyclate (Doxycycline Hyclate) 100 Mg Cap 100 MG PO BID for 5 Days, #10 CAP Metolazone (Zaroxolyn) 5 Mg Tab 5 MG PO UD, TAB Take 1 tab every 3 to 5 days as needed. Torsemide (Demadex) 20 Mg Tab 20 MG PO DAILY, TAB Admission Information HPI (per Admitting provider): 52 year old female with history of CHF Diastolic Type, CAD/CABG, HTN, DM on Insulin, CKD 3, presenting with exertional dyspnea, leg swelling and cough x few days. Follows with Dr. Biggs for Primary Care, Dr. Castañeda/WINNIE Self for CAD, Dr. Valencia for CKD 3. Patient follows with WINNIE Self for Cardiology as well. Per his notes, patient has been having leg edema, weight gain and dry cough for a few days. She was then placed on IV Lasix daily since May 01, 2017 to be received at the Cardiology Clinic. However, over the weekend, patient was not able to receive her IV Lasix as she did not have any IV access. She was then seen at the Cardiology Clinic today, Crea was found to be 2.1, Lasix IV was not given, and was sent to the ER for admission. At the ER, patient is hemodynamically stable. CXR does not suggest pulmonary edema and crea is 2.3. On exam, patient seen walking outside her room, comfortable. States she has been having chronic dyspnea on exertion, leg edema and dry cough for the past 3 months. Denies active shortness of breath, chest pain, dizziness, palpitations. Reports low urine output without diuretics. No other symptoms. Physical Exam (per Admitting): General Appearance: WD/WN, no apparent distress Head: normocephalic, atraumatic Eyes: normal inspection, PERRL, sclerae normal ENT: normal ENT inspection, hearing grossly normal, pharynx normal Neck: supple, no adenopathy, thyroid normal, no JVD Respiratory/Chest: chest non-tender, lungs clear, normal breath sounds, no respiratory distress, no accessory muscle use Cardiovascular: regular rate, rhythm, no JVD, no murmur, normal peripheral pulses Abdomen/GI: normal bowel sounds, non tender, soft Back: normal inspection, no CVA tenderness Extremities/Musculoskelatal: no calf tenderness, + pertinent finding (grade 1 lower leg edema) 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 1. CHF exacerbation- R-sided heart failure with diastolic dysfunction, acute on chronic. Likely causes include COPD and SUGEY as well as uncontrolled DM and long-standing HTN. Echo performed today revealed RV systolic dysfunction. IV diuresis switched to PO Lasix per cards and nephro. She has cardiorenal syndrome. Cont accurate I/Os, daily weights and cont with cardiology recommendations. After 2 days she was considered optimized. 2. CKD III-at baseline. Cont diuresis with PO lasix, trend PRP. Dr. Osborne following. 3. CAD s/p CABG/PCD-stable, no chest pain or evidence of active ischemia. Cont ASA 162, Lopressor 25 BID. Notably allergic to statins, Plavix. 4. DMII-on insulin. Uncontrolled this morning as snack was not covered overnight. Discussed the plan with glycemic pharmacist and ordered stricter insulin control with some improvement. 5. Gastroparesis-Reglan TID WM. Zofran held in light of QT prolongation. 6. h/o SUGEY-on CPAP 7. Anemia-chronic, at baseline. Likely multifactorial with ACD and anemia related to CKD. Monitor PRN. 8. Bipolar-on Trintellix per home meds, Ativan 1mg PO QHS, and Adderall. Pt in the process of changing mental health providers and reducing amphetamine dosage. Currently on 30mg daily. 9. Stg II heel ulcer on Right, POA, L heel wound-POA. Wound care consult ordered. Diabetic patient with peripheral neuropathy. No infection apparent. Optifoam is in place. 10. Tobacco use-encouraged to quit smoking. On day of discharge she was afebrile and hemodynamically stable and physical exam was unchanged from the prior day and unremarkable. She was ambulatory, dressed and ready to leave. She was mentating and ambulating at baseline. She was discharged in stable condition with close PCP follow-up. Total time spent on discharge = 60 minutes This includes examination of the patient, discharge planning, medication reconciliation, and communication with other providers. [place] [address] Discharge Heart Failure (CHF) Patient Name: Cindy Zhang Unit Number: [id number] Date of : 1965 Patient Status: Discharged Inpatient Attending Doctor: Sandra Amanda DO DI: CHF v4 Discharge Instructions Date of Service May 10, 2017. Admission Reason for Admission: Acute On Chronic Diastolic Chf Discharge Discharge Diagnosis / Problem: Acute on chronic diastolic CHF Discharge Goals Goal(s): Prevent Disease Progression Activity Recommendations Activity Limitations: per Instructions/Follow-up section . Instructions / Follow-Up Instructions / Follow-Up Call your Primary Care doctor if any of the following symptoms or problems start or get worse: * Shortness of breath or difficulty breathing * Wake up at night short of breath * Chest pain * Cough * Swelling of your hands, feet, or legs * More fatigued or tired with your normal activity * Palpitations - sudden fast heart beats WEIGHT * Weigh yourself every morning after using the bathroom. * Use the same scale. * Wear the same amount of clothing. * Write your weight down on a chart. * Call your Primary Care doctor if you gain more than 2-3 pounds in 1-2 days. MEDICATIONS * Use this discharge instruction sheet for medication instructions. * Take your medications at the time your doctor ordered. * Do not skip a dose of your medicines. * If you miss a dose of medicine, take it as soon as possible, but DO NOT DOUBLE A DOSE. * Read your medicine information when you get home. * Know all of the side effects of your medicine. If in doubt, ask your pharmacist * Call your Primary Care doctor's office if you have any side effects. * Be sure all of your doctors know what medicine and herbs you take (including cold, flu, and herbal medicine). Take the following with you to your follow-up doctor appointments: * Weight Chart * Medication List * List of questions Do not drink excessive alcohol, beer or wine. Additional Provider Instructions: -Please take all medications as instructed. Please note changes above. -It is recommended that you follow-up with Nephrology in one week and Cardiology in two weeks. Please call the office to schedule. -Please restrict sodium intake to <2000mg per day and preferably <1500mg per day and restrict fluids to 1500 mls daily. -Please continue to wear compression stockings as instructed by Cardiology team -You have a follow-up appointment with Dr. Devon Biggs for 05/15 @ 10:55 for follow-up from this hospitalization. It was a pleasure taking care of you! Call if you have any questions or problems. You can reach a [facility] hospitalist on duty at [facility] 24 hours a day by calling [phone]. Take care of yourself. Sandra Amanda, [facility] Hospitalist Current Hospital Diet Patient's current hospital diet: Diabetes Type 2 Diet, AHA Diet (Heart Healthy) Discharge Diet Recommended Diet: Low Sodium Diet (2gm Na), Diabetes Type 2 Diet Pending Studies Studies pending at discharge: no Laboratory Results Hemoglobin A1c Test 05/09/17 05:26 Range/Units Estimated Average Glucose 200 mg/dl Hemoglobin A1c 8.6 H 4.5-5.6 % Medical Emergencies . Who to Call and When: Call 911 or go to the Emergency Room if: * If at any time you feel your situation is an emergency * You have tightness or pain in your chest that does not go away with rest or Nitroglycerin * You are very short of breath even with rest . Non-Emergent Contact Non-Emergency issues call your: Primary Care Provider . . "Provider Documentation" section prepared by Sandra Amanda. . VTE Core Measure Inpt VTE Proph given/why not?: Refusal of treatmnt by pt Additional Copies To Devon Biggs D.O.
[2017-05-18] MEDS ORDERED: THYR1TAB PO (14:34)
[2017-05-29] MEDS ORDERED: FRS/40 PO ×2 (14:34→18:44)
[2017-05-29] MEDS ORDERED: AMPH30CA3 PO (18:44)
[2017-05-29] MEDS ORDERED: METO25TA56 PO (18:44)
[2017-05-29] MEDS ORDERED: DLC5 PO (18:44)
[2017-05-29] MEDS ORDERED: AMPH10TA2 PO (18:44)
[2017-05-29] MEDS ORDERED: LVMI SC (18:44)
[2017-05-29] MEDS ORDERED: VNTHFA/IN INH (18:44)
[2017-06-05] MEDS ORDERED: LVQ750 PO (12:52)
== END 2017-05-10 15:40 | disposition home or self-care (01) | DRG 291 ==
LOC: C.EDB 15:50 → C.MED 19:59 → ENRESERV 20:22 → EDBEDREQ 20:28 → OBSVTOIN 05-09 09:37 → C.MED 05-10 00:41
PROVIDERS: ADMIT Internal Medicine; ATTEND Hospitalist
DX: I13.0 Hypertensive heart and chronic kidney disease with heart failure and stage 1 through stage 4 chronic kidney disease, or unspecified chronic kidney disease (principal); I50.33 Acute on chronic diastolic (congestive) heart failure; N17.9 Acute kidney failure, unspecified; L97.412 Non-pressure chronic ulcer of right heel and midfoot with fat layer exposed; L97.429 Non-pressure chronic ulcer of left heel and midfoot with unspecified severity; E10.22 Type 1 diabetes mellitus with diabetic chronic kidney disease; N18.3 Chronic kidney disease, stage 3 (moderate); E10.43 Type 1 diabetes mellitus with diabetic autonomic (poly)neuropathy; E10.51 Type 1 diabetes mellitus with diabetic peripheral angiopathy without gangrene; E10.319 Type 1 diabetes mellitus with unspecified diabetic retinopathy without macular edema; D63.1 Anemia in chronic kidney disease; I25.10 Atherosclerotic heart disease of native coronary artery without angina pectoris; I25.5 Ischemic cardiomyopathy; G47.33 Obstructive sleep apnea (adult) (pediatric); E03.9 Hypothyroidism, unspecified; K21.9 Gastro-esophageal reflux disease without esophagitis; F90.9 Attention-deficit hyperactivity disorder, unspecified type; F31.9 Bipolar disorder, unspecified; F41.0 Panic disorder [episodic paroxysmal anxiety]; H40.9 Unspecified glaucoma; F17.200 Nicotine dependence, unspecified, uncomplicated; Z95.1 Presence of aortocoronary bypass graft; Z82.49 Family history of ischemic heart disease and other diseases of the circulatory system; Z82.3 Family history of stroke; Z79.1 Long term (current) use of non-steroidal anti-inflammatories (NSAID); Z79.2 Long term (current) use of antibiotics; Z79.4 Long term (current) use of insulin; Z79.82 Long term (current) use of aspirin; Z79.899 Other long term (current) drug therapy; Z88.0 Allergy status to penicillin; Z88.1 Allergy status to other antibiotic agents; Z88.5 Allergy status to narcotic agent; Z88.8 Allergy status to other drugs, medicaments and biological substances

== ENCOUNTER → 2017-05-21 | Outpatient (CLI) | payer OTHER ==
[~2017-05-21] MED LIST changes: -DXY100 PO; +FRS/40 PO; +LSX40 PO; +LVQ750 PO; +METO25TA56 PO; +THYR1TAB PO; -TORS20TA2 PO; +VNTHFA/IN INH
--- NOTE | 2017-05-21 11:03 | DIAGNOSTIC IMAGING REPORT ---
CT OF THE CHEST WITHOUT IV CONTRAST CLINICAL HISTORY: Cough and shortness of breath. COMPARISON STUDY: Chest CT January 23, 2013 and chest radiograph May 07, 2017. CT DOSE: 338.58 mGycm TECHNIQUE: Axial images of the chest were obtained without IV contrast. Images were reviewed in the axial, sagittal, and coronal planes. IV contrast was not administered for this examination. A dose lowering technique was utilized adhering to the principles of ALARA. FINDINGS: No enlarged axillary, mediastinal or hilar lymph nodes are present. The heart is mildly enlarged. There is no pericardial effusion. Median sternotomy wires and findings consistent with previous bypass grafting are noted. Central airways are patent. No pneumothorax or pleural effusion is present. No consolidation is identified. There are no suspicious pulmonary nodules. Extensive coronary artery calcification is present. Bony thorax and upper abdomen are unremarkable on this unenhanced exam. IMPRESSION: 1. No acute intrathoracic findings. 2. Mild cardiomegaly. 3. Status post median sternotomy and coronary artery bypass grafting. Electronically signed by: Narayan Barfield M.D. 05/21/2017 11:01 AM Dictated Date/Time: 05/21/2017 10:54 AM
== END | disposition home or self-care (01) ==
LOC: C.CTS 10:32
PROVIDERS: ATTEND Internal Medicine Pulmonary Disease
DX: R06.02 Shortness of breath (principal); R05 Cough

== ENCOUNTER 2017-05-29 13:27 | Inpatient (IN) | payer OTHER ==
[~2017-05-29] VITALS: Ht 170.2 cm; Wt 81.4 kg
[~2017-05-29 13:27] MED LIST changes: -FRS/40 PO; -LVQ750 PO; -VNTHFA/IN INH
[2017-05-29] MEDS ORDERED: FRS/40 PO ×2 (14:34→18:44)
[2017-05-29 16:10] LABS: BASO % 0.4 %; BASO ABS # 0.04 K/uL (0-0.2); COMPLETE YES; EOS % 3.1 %; HEMATOCRIT 36.5 % (37-47); IG% 0.2 %; LYMPH % 23.1 %; LYMPH ABS # 2.34 K/uL (1.2-3.4); MEAN CELL VOLUME 90.6 fL (80-100); MEAN CORPUSCULAR HEMOGLOBIN 28.5 pg (25-34); MEAN CORPUSCULAR HGB CONC 31.5 g/dl (32-36); MEAN PLATELET VOLUME 8.9 fL (7.4-10.4); MONO % 5.6 %; NEUT % 67.6 %; PLATELET COUNT 276 K/uL (130-400); RED BLOOD COUNT 4.03 M/uL (4.2-5.4); WHITE BLOOD COUNT 10.15 K/uL (4.8-10.8)
--- NOTE | 2017-05-29 16:27 | DIAGNOSTIC IMAGING REPORT ---
R FOOT MIN 3 VIEWS ROUTINE CLINICAL HISTORY: 52 years-old Female presenting with ULCER R POST HEEL AND R GREAT TOE TIP, HX OF OSTEO. TECHNIQUE: Frontal, oblique, and lateral views of the right foot were obtained. COMPARISON: 10/08/2012. FINDINGS: Interval evolution of postsurgical changes of the head and neck of the fifth metatarsal with chronic deformity. In comparison to prior, the tuft of the distal phalanx of the great toe is less distinct and likely eroded. At the site of ulceration in the posterior heel, no subjacent osseous erosion of the calcaneus is apparent. No degenerative change. No acute fracture or malalignment. Osteopenia suggested. IMPRESSION: 1. Osseous erosion of the tuft of the distal phalanx of the first toe concerning for osteomyelitis. 2. No osseous erosion subjacent to the site of ulceration in the posterior heel. MR is more sensitive for the diagnosis of osteomyelitis. 3. Postsurgical changes of the fifth metatarsal. Electronically signed by: Rashaad Richter M.D. 05/29/2017 4:26 PM Dictated Date/Time: 05/29/2017 4:23 PM
[2017-05-29 16:29] LABS: BUN/CREATININE RATIO 31.7 (10-20); CALCIUM 9.7 mg/dl (8.5-10.1); CREATININE 2.3 mg/dl (0.60-1.20); POTASSIUM 3.8 mmol/L (3.5-5.1)
[2017-05-29 16:32] LABS: ALB/GLOB RATIO 1.1 (0.9-2)
--- NOTE | 2017-05-29 17:19 | EMERGENCY ROOM VISIT NOTE ---
ED Visit Note First contact with patient: 14:44 Staff note: I have reviewed the Patients chart and have discussed this case with my PA. I generally agree with the ED note and findings.
[2017-05-29] MEDS ORDERED: VANCOMYCIN INJ 1,750 MG in SODIUM CHLORIDE 0.9% 500ML 500 ML IV STA (17:20)
[2017-05-29] MEDS ORDERED: METRONIDAZOLE 500MG / 100ML NSS IV STA (17:20)
[2017-05-29] MEDS ORDERED: AZTREONAM IV 2,000 MG in DEXTROSE 5% 100ML 100 ML IV STA (17:20)
--- NOTE | 2017-05-29 17:25 | EMERGENCY ROOM VISIT NOTE ---
History First contact with patient: 14:44 Chief Complaint: INFECTION Stated Complaint: INFECTED OPEN AREAS (FOOT/HEEL/TOE) NAUSEA Nursing Triage Summary: pt has wound to great tow right foot and heel of right foot, pt states she thought the wounds were healing until Saturday of this week when she noticed the great toe wound. Pt wound on heel open with purulent drainage, great toe wound open with nail grown over wound. History of Present Illness Patient is a 52-year-old white female with past medical history significant for diabetes, chronic kidney disease, coronary artery disease status post CABG, history of CHF, sleep apnea, bipolar disorder, among other medical problems, who presents emergency department for evaluation of diabetic ulcerations on her right foot. Her wounds have been present for about 4-5 weeks. She had been treating them at home on her own with local wound care measures. She was actually hospitalized about 3 weeks ago at our facility for CHF. She was seen by the ostomy nurse at that time, and was instructed to use Aquasol and a bandage which she has been doing. has been monitoring her wounds, and they both thought that things were healing well until about 3 days ago. She states that the wounds worsened. The wound on the toe "opened up" and they began to notice some dark, foul-smelling drainage from both the wound on the tip of the right toe and on the right heel. Since then she has also begun to feel weak, fatigued and nauseous. Her blood sugars have been consistently in the 300s since Saturday, despite correction. The patient has had foot ulcers in the past and has been seen by wound care, but not for a couple of years. She does have a remote history of MSSA osteomyelitis in the right foot, which was treated with surgical debridement and IV antibiotics. She believes that she needs new orthotics. She does have an appointment with the wound care center tomorrow at 7:30. She is not documented any fevers. She has no sensation in her feet secondary to her diabetes, therefore denies any pain. She has multiple antibiotic allergies. Review of Systems Review of systems as per HPI. All other systems reviewed were negative. 10 systems reviewed. Past Medical/Surgical History Medical Problems: (1) Acute on chronic diastolic CHF (congestive heart failure) (2) ADD (attention deficit disorder) (3) Anxiety (4) CAD (coronary artery disease) (5) Cardiorenal syndrome (6) CHF exacerbation (7) CKD (chronic kidney disease) stage 3, GFR 30-59 ml/min (8) Depression (9) Diabetes mellitus type 1 (10) Dyslipidemia (11) GERD (gastroesophageal reflux disease) (12) Glaucoma (13) HTN (hypertension) (14) Hypothyroidism (15) Osteomyelitis (16) Shortness of breath (17) Tobacco abuse Surgical Problems: (1) H/O nasal septoplasty (2) History of section (3) S/P CABG x 2 Electronic medical records are reviewed and summarized as above/below. See Problem List. Family History FH: CAD (coronary artery disease) FATHER ([place] at age 47, CABG x 4 ) Social History Smoking Status: Current Every Day Smoker Alcohol Use: none Drug Use: none Marital Status: Housing Status: lives with family Occupation Status: disabled Current/Historical Medications Scheduled Amphetamine-Dextroamphetamine 10MG (Adderall 10MG), 10 MG PO DAILY Amphetamine-Dextroamphetamine 30MG (Adderall Xr 30MG), 30 MG PO DAILY Aspirin (Aspirin Ec), 162 MG PO HS Biotin (Biotin 5000), 5 MG PO QPM Bisacodyl (Bisacodyl EC), 10 MG PO HS Cholecalciferol (D-5000), 5,000 UNITS PO DAILY Cranberry (Vaccinium Macrocarp (Cranberry Extract), 500 MG PO QAM Furosemide (Lasix), 40 MG PO DAILY Insulin Aspart (Novolog), 1 UNIT SC AC Insulin Detemir (Levemir), 14 UNITS SC BID Linaclotide (Linzess), 145 MCG PO QAM Loratadine (Claritin), 10 MG PO QAM Lorazepam (Lorazepam), 1 MG PO HS Metoclopramide Hcl (Reglan), 10 MG PO QID Metoprolol Tartrate (Lopressor) (Lopressor), 1 TAB PO BID Ondansetron (Ondansetron HCl), 8 MG PO TID Pantoprazole (Protonix), 40 MG PO BID Ranitidine (Zantac), 150 MG PO BID Thyroid (Wp Thyroid), 1 TAB PO DAILY Travoprost (Travatan Z), 1 DROPS OP HS Vortioxetine HBr (Trintellix), 1 TAB PO DAILY Scheduled PRN Albuterol Hfa (Ventolin Hfa), 2 PUFFS INH Q4 PRN for SOB/Wheezing Olopatadine Hydrochloride (Pataday), 1 DROPS OPB DAILY PRN for prn Physical Exam Vital Signs Date Time Temp Pulse Resp B/P (MAP) Pulse Ox O2 Delivery O2 Flow Rate FiO2 05/29/17 17:00 36.8 88 16 147/88 98 Room Air 05/29/17 14:25 86 16 152/72 97 Room Air 05/29/17 13:37 36.8 90 18 142/62 98 Room Air Physical Exam CONSTITUTIONAL: Patient is a pleasant, well-appearing 52-year-old white female who is awake and alert and in no acute distress. CARDIOVASCULAR: Regular rate and rhythm, systolic ejection murmur noted. Peripheral pulses easily palpable. RESPIRATORY: Breath sounds equal and clear to auscultation without wheezes, rales, or rhonchi heard. Full and equal chest expansion without accessory muscle use or retractions. MUSCULOSKELETAL: Examination of the right lower extremity does not demonstrate any obvious deformity. No bony tenderness to palpation. Toe and ankle range of motion are full. Dorsalis pedis and posterior tibialis pulses are easily palpable. She has minimal sensation of light touch in the foot. The calves are soft and nontender. No pitting edema is noted. INTEGUMENTARY: Patient has 2 ulcerations noted on the right foot. The first is noted on the tip of the great toe, medially. It is circular, measuring about 2 cm in diameter. There is sloughing, and some central granulation noted, scant purulent drainage is appreciated. The toe nail is overgrown, and appears to be eroding into the central portion of the wound. There is no tunneling appreciated. Second wound is noted on the posterior aspect of the right calcaneus, measures roughly 3 cm in diameter. There is a central opening that is about 1 cm in diameter, granulation tissue is present. There is slight erythema around the wound on the calcaneus. No lymphangitic streaking is appreciated. LYMPH: No lymphadenopathy. Medical Decision & Procedures ER Provider Diagnostic Interpretation: R FOOT MIN 3 VIEWS ROUTINE CLINICAL HISTORY: 52 years-old Female presenting with ULCER R POST HEEL AND R GREAT TOE TIP, HX OF OSTEO. TECHNIQUE: Frontal, oblique, and lateral views of the right foot were obtained. COMPARISON: 10/08/2012. FINDINGS: Interval evolution of postsurgical changes of the head and neck of the fifth metatarsal with chronic deformity. In comparison to prior, the tuft of the distal phalanx of the great toe is less distinct and likely eroded. At the site of ulceration in the posterior heel, no subjacent osseous erosion of the calcaneus is apparent. No degenerative change. No acute fracture or malalignment. Osteopenia suggested. IMPRESSION: 1. Osseous erosion of the tuft of the distal phalanx of the first toe concerning for osteomyelitis. 2. No osseous erosion subjacent to the site of ulceration in the posterior heel. MR is more sensitive for the diagnosis of osteomyelitis. 3. Postsurgical changes of the fifth metatarsal. Laboratory Results 05/29/17 16:01 Red Blood Count 4.03, Mean Corpuscular Volume 90.6, Mean Corpuscular Hemoglobin 28.5, Mean Corpuscular Hemoglobin Concent 31.5, Mean Platelet Volume 8.9, Neutrophils (%) (Auto) 67.6, Lymphocytes (%) (Auto) 23.1, Monocytes (%) (Auto) 5.6, Eosinophils (%) (Auto) 3.1, Basophils (%) (Auto) 0.4, Neutrophils # (Auto) 6.87, Lymphocytes # (Auto) 2.34, Monocytes # (Auto) 0.57, Eosinophils # (Auto) 0.31, Basophils # (Auto) 0.04 05/29/17 16:01 Test 05/29/17 16:01 05/29/17 16:07 White Blood Count 10.15 K/uL (4.8-10.8) Red Blood Count 4.03 M/uL (4.2-5.4) Hemoglobin 11.5 g/dL (12.0-16.0) Hematocrit 36.5 % (37-47) Mean Corpuscular Volume 90.6 fL (80-100) Mean Corpuscular Hemoglobin 28.5 pg (25-34) Mean Corpuscular Hemoglobin Concent 31.5 g/dl (32-36) Platelet Count 276 K/uL (130-400) Mean Platelet Volume 8.9 fL (7.4-10.4) Neutrophils (%) (Auto) 67.6 % Lymphocytes (%) (Auto) 23.1 % Monocytes (%) (Auto) 5.6 % Eosinophils (%) (Auto) 3.1 % Basophils (%) (Auto) 0.4 % Neutrophils # (Auto) 6.87 K/uL (1.4-6.5) Lymphocytes # (Auto) 2.34 K/uL (1.2-3.4) Monocytes # (Auto) 0.57 K/uL (0.11-0.59) Eosinophils # (Auto) 0.31 K/uL (0-0.5) Basophils # (Auto) 0.04 K/uL (0-0.2) RDW Standard Deviation 41.5 fL (36.4-46.3) RDW Coefficient of Variation 12.5 % (11.5-14.5) Immature Granulocyte % (Auto) 0.2 % Immature Granulocyte # (Auto) 0.02 K/uL (0.00-0.02) Anion Gap 11.0 mmol/L (3-11) Est Creatinine Clear Calc Drug Dose 31.0 ml/min Estimated GFR () 27.2 Estimated GFR (Non- 23.5 BUN/Creatinine Ratio 31.7 (10-20) Calcium Level 9.7 mg/dl (8.5-10.1) Total Bilirubin 0.1 mg/dl (0.2-1) Aspartate Amino Transf (AST/SGOT) 15 U/L (15-37) Alanine Aminotransferase (ALT/SGPT) 24 U/L (12-78) Alkaline Phosphatase 123 U/L (45-117) Total Protein 7.3 gm/dl (6.4-8.2) Albumin 3.8 gm/dl (3.4-5.0) Globulin 3.5 gm/dl (2.5-4.0) Albumin/Globulin Ratio 1.1 (0.9-2) Bedside Lactic Acid Venous 1.61 mmol/L (0.90-1.70) Medications Administered Medications (Trade) Dose Ordered Sig/Kike Route Start Time Stop Time Status Last Admin Dose Admin Aztreonam 2000 mg/ Dextrose 110 ml @ 100 mls/hr NOW STAT IV 05/29/17 17:20 05/29/17 18:25 DC 05/29/17 19:19 100 MLS/HR ED Course The patient was seen and examined as above. Her old records are reviewed. She has 2 wounds on the right foot, both of which require debridement, however as the patient has an appointment scheduled for tomorrow morning with the wound care center, it was felt best to allow her to be fully evaluated by them for appropriate intervention. Both of her wounds were cleansed and irrigated thoroughly with saline, then superficial wound cultures were taken. IV lock was initiated. Laboratory studies were collected. X-ray of the right foot was obtained. The patient's laboratory studies were largely unrevealing. There was no leukocytosis, she has a chronic, stable anemia. Electrolytes are without gross abnormality. Renal function is at her baseline, BUN and creatinine 73 and 2.3 respectively. Glucose 264. Her [id number] lactate is not elevated. LFTs are unremarkable. Wound cultures are pending. X-ray of the right foot was interpreted by the radiologist as osseous erosion of the tuft of the distal phalanx of the first toe concerning for osteomyelitis. No osseous erosion noted at the ulceration on the posterior heel. Postsurgical changes were noted. All laboratory and diagnostic imaging studies were reviewed with attending physician, who also independently evaluated the patient. Patient has multiple antibiotic allergies/intolerances. Her presentation was reviewed with ED pharmacist, and antibiotic regimen was agreed upon and was ordered. Given the findings on x-ray, her history of osteomyelitis, and her other comorbidities, further care in the hospital via admission versus observation was discussed with the patient and she was in agreement. Patient was discussed with the agricultural equipment sales manager, and with [facility] for further care and evaluation. Patient was discussed with Dr. Mak. Differential diagnoses entertained included diabetic foot ulcers, wound infection, abscess, osteomyelitis, necrotizing fasciitis, cellulitis, DVT, PAD, superficial thrombophlebitis, among others. Medical Decision See Emergency Department course. Medication Reconcilliation Current Medication List: was personally reviewed by pr Blood Pressure Screening Patient's blood pressure: Elevated blood pressure Blood pressure disposition: Referred to PCP Impression Primary Impression: Diabetic foot ulcer with osteomyelitis Departure Information Dispostion Admitted as an inpatient Prescriptions Albuterol Hfa (VENTOLIN HFA) 200 Puffs/21237 Mcg Aers 2 PUFFS INH Q4 Y for SOB/Wheezing, #1 INHALER Prov: Yonas Mak MD 05/29/17 Furosemide (Lasix) 40 Mg Tab 40 MG PO DAILY, #30 TAB Prov: Yonas Mak MD 05/29/17 Metoprolol Tartrate (Lopressor) (Lopressor) 25 Mg Tab 1 TAB PO BID, #30 TAB Prov: Yonas Mak MD 05/29/17 Insulin Detemir (Levemir) 100 Units/Ml Inj 14 UNITS SC BID, #1 Prov: Yonas Mak MD 05/29/17 Bisacodyl (Bisacodyl EC) 5 Mg Tabec 10 MG PO HS, #30 Prov: Yonas Mak MD 05/29/17 Amphetamine-Dextroamphetamine 10MG (ADDERALL 10MG) 1 Tab Tab 10 MG PO DAILY, #30 TAB Prov: Yonas Mak MD 05/29/17 Amphetamine-Dextroamphetamine 30MG (ADDERALL XR 30MG) 1 Cap Cap 30 MG PO DAILY for 30 Days, CAP Prov: Yonas Mak MD 05/29/17 Referrals Devon Biggs D.OOscar (PCP) Patient Instructions [facility]
[2017-05-29] MEDS ORDERED: MAGNESIUM HYDROXIDE SUSP 30 ML UDC PO PRN (18:30)
[2017-05-29] MEDS ORDERED: ALUMINUM/MAGNESIUM/SIMETH (MAALOX MAX) 30 ML UDC PO PRN (18:30)
[2017-05-29] MEDS ORDERED: POLYETHYLENE (MIRALAX) 17 GM PACK PO PRN (18:30)
[2017-05-29] MEDS ORDERED: ONDANSETRON INJ 2 MG/ML 2 ML VIAL IV PRN (18:30)
[2017-05-29] MEDS ORDERED: ACETAMINOPHEN 325 MG TAB PO PRN (18:30)
[2017-05-29] MEDS ORDERED: DLC5 PO (18:44)
[2017-05-29] MEDS ORDERED: LVMI SC (18:44)
[2017-05-29] MEDS ORDERED: AMPH30CA3 PO (18:44)
[2017-05-29] MEDS ORDERED: METO25TA56 PO (18:44)
[2017-05-29] MEDS ORDERED: AMPH10TA2 PO (18:44)
[2017-05-29] MEDS ORDERED: VNTHFA/IN INH (18:44)
[2017-05-29] MEDS ORDERED: ALBUTEROL HFA 8 GM INHALER INH PRN (18:45)
[2017-05-29] MEDS ORDERED: PHARMACY GLYCEMIC MGMT CONSULT PRN (19:02)
[2017-05-29] MEDS: INSULIN DETEMIR FLEXPEN/FLEX TOUCH 100 UNITS/ML 3ML SC SCH (20:00)
[2017-05-29 21:00] VITALS: BP 169/83; PULSE 99; TEMP 37; O2SAT 97; BMI 28.1
[2017-05-29] MEDS ORDERED: FUROSEMIDE 40 MG TAB PO SCH (21:00)
[2017-05-29] MEDS: INSULIN ASPART 100 UNITS/ML 3 ML PEN SC SCH (21:00)
--- NOTE | 2017-05-29 21:07 | HISTORY & PHYSICAL EXAMINATION ---
DATE OF ADMISSION: 05/29/2017 CHIEF COMPLAINT: Nonhealing right foot ulcers. HISTORY OF PRESENT ILLNESS: This is a 52-year-old female with past medical history significant for hypertension, diabetes not well-controlled, CAD status post CABG, chronic kidney disease stage III, diabetic retinopathy, diabetic peripheral neuropathy, depression, gastroparesis, chronic right heart failure, hypothyroidism, sleep apnea, who presents with nonhealing right foot ulcers. The patient was here in the first week of May with CHF which got resolved and discharged home. At that time, she was also noticed to have right foot, right heel pressure ulcer, not infected at that time and she follows with the wound care, but since last few days, she also noticed ulcer on the right big toe which is new and also right heel ulcer is draining brown color and is foul smelling. She uses braces for legs because of neuropathy. Did not notice any pain. Denies any fever or chills. Otherwise, she is doing okay. She ambulates with help of cane. Denies any headaches, no dizziness, no blurred visions. No runny nose, or drainage from the ears. No sore throat. No difficulty swallowing. No chest pain, occasional shortness of breath, no cough, no nausea or vomiting, no abdominal pain. Normal bowel and bladder movements. No blood in the urine. No blood in the stools. No rash. No lower extremity edema. ALLERGIES: TO CEPHALOSPORINS, PLAVIX, CODEINE ERTAPENEM, ERYTHROMYCIN, NITROFURANTOIN, PENICILLIN, PREGABALIN, STATINS AND VANCOMYCIN. PAST MEDICAL HISTORY: As mentioned above. PAST SURGICAL HISTORY: Right breast biopsy, CABG, , colonoscopy with polypectomy, left heart catheterization, EGD with biopsy, repair of the nasal septum, sinus surgery. MEDICATIONS: The patient is on Lasix 40 mg p.o. daily, Trintellix 20 mg p.o. daily, Levemir 13 units in p.m. and 14 units in a.m., insulin sliding scale, oxygen 1 liter through CPAP during night, thyroid 65 mg p.o. daily, Ativan 1 mg p.o. at bedtime, Zantac 150 mg p.o. b.i.d., Zofran 8 mg p.o. t.i.d. Linzess 145 mcg p.o. daily, Protonix 40 mg p.o. daily, albuterol 2 puffs every 4 hours p.r.n., metoprolol 25 mg p.o. b.i.d., Reglan 10 mg p.o. q.i.d. Pataday 0.2% ophthalmic solution daily, Adderall 10 mg p.o. daily, Adderall-XL 30 mg p.o. daily, loratadine 10 mg p.o. daily, Dulcolax 10 mg p.o. at bedtime, Travatan 0.004% ophthalmic solution 1 drop at bedtime in both eyes, aspirin 162 mg p.o. daily, vitamin D 4000 units p.o. daily. FAMILY HISTORY: Significant for father had MT at age of 47 and is status post CABG. Mother has thyroid disorder, anxiety, and depression. Brother has hyperlipidemia. SOCIAL HISTORY: , smokes 1 pack a day for last 15 years. No alcohol use. No drug use. REVIEW OF SYSTEMS: As per HPI. PHYSICAL EXAMINATION: GENERAL: The patient is obese, not in distress. VITAL SIGNS: Temperature 36.8, pulse 88, respiratory rate 16, blood pressure 147/88, oxygen 98% on room air. HEENT: No pallor, no icterus. Pupils equal, round, and reactive to light. NECK: Supple: No JVD, no neck masses. CARDIOVASCULAR: S1, S2 heard, regular rate and rhythm, no murmur, no gallop. RESPIRATORY SYSTEM: Normal AP diameter. No accessory muscle use. No wheezing, no crackles. ABDOMEN: Soft, bowel sounds present. Nontender. No distention. CENTRAL NERVOUS SYSTEM: Cranial nerves II-XII are grossly intact. Nonfocal. EXTREMITIES: No edema. Right foot wounds seen on the heel and first toe. Heel wound is draining with some foul smell. LABORATORY DATA: WBC 10.15, hemoglobin 11.5, hematocrit 36.5, platelets 276. Sodium 138, potassium 3.8, chloride 107, BUN 273, creatinine 2.3, serum glucose 264, [id number] lactic acid 1.6, total bilirubin 0.1, AST 15, ALT 24, alkaline phosphatase is 123 IMAGING DATA: Right foot x-ray shows osseous erosion of the distal phalanx of the right first toe concerning for osteomyelitis. ASSESSMENT AND PLAN: This is a 52-year-old female who presents with non-healing foot ulcer. 1. Nonhealing right foot ulcer. Right heel pressure ulcer is stage III to IV, was there before and the right first toe ulcer is new, foul smelling drainage, possible osteomyelitis on x-ray of the right first toe. THE PATIENT IS ALLERGIC TO MULTIPLE ANTIBIOTICS. We will place her on IV daptomycin, follow the cultures. Consult wound care and consult infectious disease for further recommendations. If the osteomyelitis is confirmed, we may need long-term IV antibiotics. 2. History of right-sided heart failure, diastolic dysfunction, chronic, currently stable. Continue home Lasix. 3. Coronary artery disease status post coronary artery bypass grafting. Continue aspirin, beta kathy. Not on statin. 4. History of bipolar and attention deficit disorder, on Trintellix, Ativan and Adderall. 5. Acute renal failure and chronic kidney disease stage III, baseline creatinine around 1.8, presented with creatinine of 2.3. We will follow the labs. 6. History of diabetes. Continue home Lantus plus insulin sliding scale. Follow the HbA1c levels. 7. History of gastroesophageal reflux disease. Continue proton pump inhibitor and Zantac. 8. History of hypertension, on metoprolol. We will follow the blood pressure. 9. History of constipation, on linzess.. 10. History of anemia from chronic kidney disease. We will follow the labs. 11. History of gastroparesis, on Reglan. 12. History of obstructive sleep apnea, on CPAP. 13. Deep venous thrombosis prophylaxis. Heparin subQ. DISPOSITION: Admit to medical floor. PT and OT prior to discharge. Social Service to help with discharge planning. Level 1 full code. MTDD
--- NOTE | 2017-05-29 21:13 | DIAGNOSTIC IMAGING REPORT ---
ART DOP DUPLEX LW EXT UNI CLINICAL HISTORY: NON HEALING RIGHT FOOT ULCERS. HX OF DM pain TECHNIQUE: Arterial Doppler COMPARISON STUDY: None FINDINGS: Ankle brachial index of the right posterior tibial is 0.92. Dorsalis pedis is 0.81. Waveforms are triphasic within the thigh. There are increased velocities and superficial femoral artery popliteal artery, with dampened waveforms within the right calf. IMPRESSION: 1. No significant stenosis of the right thigh. 2. Moderate to moderately significant stenosis of the right distal superficial femoral artery with dampened flow characteristics of all arterial structures of the right lower leg. The above report was generated using voice recognition software. It may contain grammatical, syntax or spelling errors. Electronically signed by: Sandeep Del Valle M.D. 05/29/2017 9:12 PM Dictated Date/Time: 05/29/2017 9:10 PM
[2017-05-29] MEDS ORDERED: DAPTOMYCIN CONSULT ACTIVE PRN ×2 (21:45)
--- NOTE | 2017-05-29 21:57 | Pharmacy Progress Note ---
Glycemic Control Intl Consult Date of Service May 29, 2017. Scope Glycemic Pharmacist consulted by Dr Mak on 05/29/17 for glycemic control and to write orders per [facility] inpatient glycemic control protocol Objective Weight (Kilograms): 81.400 Accuchecks BSG (last 24hrs): Test 05/29/17 16:01 Random Glucose 264 mg/dl (70-99) Laboratory Data (last 24hrs) Test 05/29/17 16:01 Anion Gap 11.0 mmol/L BUN/Creatinine Ratio 31.7 Blood Urea Nitrogen 73 mg/dl Creatinine 2.30 mg/dl Potassium Level 3.8 mmol/L Sodium Level 138 mmol/L White Blood Count 10.15 K/uL Red Blood Count 4.03 M/uL Hemoglobin 11.5 g/dL Hematocrit 36.5 % Mean Corpuscular Volume 90.6 fL Mean Corpuscular Hemoglobin 28.5 pg Mean Corpuscular Hemoglobin Concent 31.5 g/dl Platelet Count 276 K/uL Mean Platelet Volume 8.9 fL Neutrophils (%) (Auto) 67.6 % Lymphocytes (%) (Auto) 23.1 % Monocytes (%) (Auto) 5.6 % Eosinophils (%) (Auto) 3.1 % Basophils (%) (Auto) 0.4 % Neutrophils # (Auto) 6.87 K/uL Lymphocytes # (Auto) 2.34 K/uL Monocytes # (Auto) 0.57 K/uL Eosinophils # (Auto) 0.31 K/uL Basophils # (Auto) 0.04 K/uL Recent Pertinent Medications Outpatient Anti-diabetic Regimen: * Levemir 14 units SQ q12 * Novolog CF 70, CR 15 (max of 15 units) * A1c = 8.6 % 05/09/17 Risk Factors for Insulin Resistance: * Infection: Infected foot, r/o osteo * Diet: AHA, T2DM Assessment & Plan ASSESSMENT: * 52 yr old T1DM female admitted with hyperglycemia, foot infection, r/o osteo. * Patient is well known to the Pharmacy Glycemic Service. During a recent admission she required 41-54 units of insulin per day. * Will continue home dose of Levemir and utilize CF/CR that has worked well for the patient in the past. * ADA & AACE recommend a goal blood sugar range 140-180 mg/dl for the majority of critically ill & non-critically ill patients. However, more stringent targets may be selected in individual cases. Will utilize more stringent goal of 110-140mg/dl based on patient age & comorbidities. Additionally, tighter glycemic control is warranted to facilitate wound/infection healing. PLAN FOR INPATIENT GLYCEMIC CONTROL: * Basal insulin with Levemir 14 units SQ BID * Correctional Insulin with NOVOLOG per scale ACHS * Goal Range: Low 110 mg/dL - High 140 mg/dL * Correction Factor: 25 mg/dL/unit * Nutritional / Prandial insulin per carb ratio of 1 unit per 10 grams CHO consumed * Add overnight checks with coverage at 00 and 04. * Please note that the plan above was derived based on current level of insulin resistance and hospital stress. These recommendations are appropriate for inpatient admission only. Plan of care upon discharge will need to be reassessed to avoid potential outpatient hypo/hyperglycemia. Thank you.
[2017-05-29] MEDS: HEPARIN SOD 5000 UNIT/0.5 ML CARP SQ SCH (22:00)
[2017-05-29] MEDS: LORAZEPAM 1 MG TAB PO SCH (22:36)
[2017-05-29] MEDS: TRAVOPROST Z 0.004% OPH SOLN 2.5 ML BTL OP SCH (22:36)
[2017-05-29] MEDS: BISACODYL 5 MG TABEC PO SCH (22:37)
[2017-05-29] MEDS: ASPIRIN 81 MG ECTAB PO SCH (22:38)
[2017-05-29] MEDS: METOPROLOL TARTRATE 25 MG TAB PO SCH (22:39)
[2017-05-29 22:40] VITALS: BP 169/83; PULSE 99; TEMP 37; O2SAT 97
[2017-05-29] MEDS: PANTOprazole SOD 40 MG TAB PO SCH (22:41)
[2017-05-29] MEDS: RANITIDINE HCL 150 MG TAB PO SCH (22:42)
[2017-05-29] MEDS: METOCLOPRAMIDE HCL 10 MG TAB PO SCH (22:42)
[2017-05-29] MEDS: ONDANSETRON 8 MG TAB PO SCH (22:43)
[2017-05-29] MEDS: DAPTOmycin IV 500 MG in SODIUM CHLORIDE 0.9% 50ML 50 ML IV SCH (22:48)
[2017-05-29] MEDS: PATADAY~ORDER AWAITING ACTION SCH (22:52)
[2017-05-30] MEDS ORDERED: LINZESS~ORDER AWAITING ACTION SCH
[2017-05-30 00:03] VITALS: BP 147/72; PULSE 87; TEMP 37; O2SAT 96
[2017-05-30] MEDS: INSULIN ASPART 100 UNITS/ML 3 ML PEN SC SCH ×6 (00:12→21:38)
[2017-05-30] MEDS: HEPARIN SOD 5000 UNIT/0.5 ML CARP SQ SCH ×3 (04:16→21:39)
[2017-05-30 06:58] VITALS: BP 126/73; PULSE 79; TEMP 37.6; O2SAT 95
[2017-05-30 07:11] LABS: BASO % 0.5 %; BASO ABS # 0.04 K/uL (0-0.2); COMPLETE YES; EOS % 3.5 %; HEMATOCRIT 33.2 % (37-47); IG% 0.4 %; LYMPH % 27.3 %; LYMPH ABS # 2.34 K/uL (1.2-3.4); MEAN CELL VOLUME 89.5 fL (80-100); MEAN CORPUSCULAR HEMOGLOBIN 29.1 pg (25-34); MEAN CORPUSCULAR HGB CONC 32.5 g/dl (32-36); MEAN PLATELET VOLUME 8.7 fL (7.4-10.4); MONO % 8.6 %; NEUT % 59.7 %; PLATELET COUNT 253 K/uL (130-400); RED BLOOD COUNT 3.71 M/uL (4.2-5.4); WHITE BLOOD COUNT 8.57 K/uL (4.8-10.8)
[2017-05-30 07:33] VITALS: BP 142/69; PULSE 86; TEMP 36.8; O2SAT 95
[2017-05-30 07:44] LABS: ESTIMATED AVERAGE GLUCOSE 223 mg/dl; HA1C FLAG Normal (Normal)
[2017-05-30 07:49] LABS: BUN/CREATININE RATIO 37.7 (10-20); CALCIUM 9.1 mg/dl (8.5-10.1); CREATININE 1.8 mg/dl (0.60-1.20); MAGNESIUM 2.3 mg/dl (1.8-2.4); POTASSIUM 4.1 mmol/L (3.5-5.1)
[2017-05-30] MEDS ORDERED: INFLUENZA VIRUS QUAD VACCINE 0.5 ML SYR IM. ONE (08:00)
[2017-05-30] MEDS ORDERED: INFLUENZA ADMINISTRATION CHARGE ONE (08:00)
[2017-05-30] MEDS: PATADAY~ORDER AWAITING ACTION SCH ×2 (08:53→16:00)
[2017-05-30] MEDS: ONDANSETRON 8 MG TAB PO SCH ×3 (08:58→21:43)
[2017-05-30] MEDS: CHOLECALCIFEROL 1000 INTER.UNIT TAB PO SCH (08:58)
[2017-05-30] MEDS: METOCLOPRAMIDE HCL 10 MG TAB PO SCH ×4 (08:59→21:35)
[2017-05-30] MEDS: LORATADINE 10 MG TAB PO SCH (08:59)
[2017-05-30] MEDS: FUROSEMIDE 40 MG TAB PO SCH (08:59)
[2017-05-30] MEDS: METOPROLOL TARTRATE 25 MG TAB PO SCH ×2 (08:59→21:41)
[2017-05-30] MEDS: PANTOprazole SOD 40 MG TAB PO SCH ×2 (08:59→21:41)
[2017-05-30] MEDS: RANITIDINE HCL 150 MG TAB PO SCH ×2 (09:00→21:42)
[2017-05-30] MEDS: INSULIN DETEMIR FLEXPEN/FLEX TOUCH 100 UNITS/ML 3ML SC SCH ×2 (09:05→21:39)
--- NOTE | 2017-05-30 10:11 | Medical Consult ---
Consultation Date of Consultation: May 30, 2017. Attending Physician: Yonas Mak MD Reason for Consultation: Osteomyelitis right great toe History of Present Illness 52-year-old female is well known to me from previous infectious disease consultation with history of poorly controlled diabetes mellitus with severe diabetic neuropathy was admitted to the hospital with several days of progressively worsening ulceration of the right great toe along with foul- smelling drainage, swelling and erythema. Also has had right heel ulceration for several weeks. She has not had associated fever or chills. Blood sugars have been erratic and high. Admitted to the hospital and x-ray of the foot, read by me, is concerning for osteomyelitis of the distal tuft the right great toe. Currently receiving daptomycin and aztreonam which he is tolerating without apparent difficulty. Past Medical/Surgical History Medical Problems: (1) Acute coronary syndrome Status: Acute (2) Congestive heart failure Status: Acute (3) Diabetic foot ulcer with osteomyelitis Status: Acute (4) Elevated d-dimer Status: Acute (5) History of CHF (congestive heart failure) Status: Acute (6) History of coronary artery disease Status: Acute (7) SOB (shortness of breath) Status: Acute Medical Problems: (1) Acute on chronic diastolic CHF (congestive heart failure) (2) ADD (attention deficit disorder) (3) Anxiety (4) CAD (coronary artery disease) (5) Cardiorenal syndrome (6) CHF exacerbation (7) CKD (chronic kidney disease) stage 3, GFR 30-59 ml/min (8) Depression (9) Diabetes mellitus type 1 (10) Dyslipidemia (11) GERD (gastroesophageal reflux disease) (12) Glaucoma (13) HTN (hypertension) (14) Hypothyroidism (15) Osteomyelitis (16) Shortness of breath (17) Tobacco abuse Surgical Problems: (1) H/O nasal septoplasty (2) History of section (3) S/P CABG x 2 Family History FH: CAD (coronary artery disease) FATHER (MS at age 47, CABG x 4 ) Social History Smoking Status: Current Every Day Smoker Drug Use: none Marital Status: Housing Status: lives with family Occupation Status: disabled Allergies Coded Allergies: Penicillins (Verified Allergy, Intermediate, BLOTCHY SKIN/ ITCHY, 05/29/17) Vancomycin (Unverified Allergy, Intermediate, SHORTNESS OF BREATH, 05/29/17 ) PATIENT RECEIVED VANCOMYCIN (>10 DOSES) SEP-OCT 2012. THEREFORE LISTED REACTION OF SOB IS UNLIKELY TO BE 2ND ANAPHYLAXIS Clopidogrel (Verified Allergy, Mild, rash, 05/29/17) rash due to Plavix or ertapenem Ertapenem (Verified Allergy, Mild, rash, 05/29/17) rash due to Plavix or ertapenem? Cephalosporins (Verified Allergy, Unknown, CECLOR-UNKNOWN, 05/29/17) Erythromycin (Unverified Allergy, Unknown, FROM H AND P-RASH, 05/29/17) Statins (Unverified Allergy, Unknown, MYALGIA, 05/29/17) Codeine (Verified Adverse Reaction, Unknown, VOMITING, 05/29/17) Nitrofurantoin (Unverified Adverse Reaction, Unknown, vomiting, 05/29/17) Pregabalin (Unverified Adverse Reaction, Unknown, VERY EMOTIONAL CRYING, ) Current Inpatient Medications Current Inpatient Medications Medications (Trade) Dose Ordered Sig/Kike Route Start Time Stop Time Status Last Admin Dose Admin Heparin Sodium (Porcine) (Heparin Sq 5000 Unit/0.5ml) 5,000 unit Q8 SQ 05/29/17 22:00 06/28/17 21:59 Acetaminophen (Tylenol Tab) 650 mg Q4H PRN PO 05/29/17 18:30 06/28/17 18:29 Al Hydrox/Mg Hydrox/Simethicone (Maalox Max Susp) 15 ml Q4H PRN PO 05/29/17 18:30 06/28/17 18:29 Magnesium Hydroxide (Milk Of Magnesia Susp) 30 ml Q6H PRN PO 05/29/17 18:30 06/28/17 18:29 Polyethylene (Miralax Powder Packet) 17 gm DAILY PRN PO 05/29/17 18:30 06/28/17 18:29 Ondansetron HCl (Zofran Inj) 4 mg Q6H PRN IV 05/29/17 18:30 06/28/17 18:29 Daptomycin 500 mg/ Sodium Chloride 60 ml @ 100 mls/hr Q24H IV 05/29/17 22:00 07/10/17 21:59 05/29/17 22:48 100 MLS/HR Aspirin (Ecotrin Tab) 162 mg HS PO 05/29/17 21:00 06/28/17 20:59 05/29/17 22:38 162 MG Loratadine (Claritin Tab) 10 mg QAM PO 05/30/17 09:00 06/29/17 08:59 05/30/17 08:59 10 MG Lorazepam (Ativan Tab) 1 mg HS PO 05/29/17 21:00 06/28/17 20:59 05/29/17 22:36 1 MG Metoclopramide HCl (Reglan Tab) 10 mg QID PO 05/29/17 21:00 06/28/17 20:59 05/30/17 08:59 10 MG Ondansetron HCl (Zofran Tab) 8 mg TID PO 05/29/17 21:00 06/28/17 20:59 05/30/17 08:58 8 MG Pantoprazole Sodium (Protonix Tab) 40 mg BID PO 05/29/17 21:00 06/28/17 20:59 05/30/17 08:59 40 MG Ranitidine HCl (zANTac TAB) 150 mg BID PO 05/29/17 21:00 06/28/17 20:59 05/30/17 09:00 150 MG Travoprost (Travatan Z) 1 drops HS OP 05/29/17 21:00 06/28/17 20:59 05/29/17 22:36 1 DROPS Cholecalciferol (Vitamin D Tab) 5,000 inter.unit DAILY PO 05/30/17 09:00 06/29/17 08:59 05/30/17 08:58 5,000 INTER.UNIT Miscellaneous Information (Order Awaiting Action) 1 ea QS N/A 05/30/17 00:00 06/29/17 00:00 Insulin Aspart (novoLOG ASPART) SLIDING SCALE G... ACHS SC 05/29/17 21:00 06/28/17 20:59 05/30/17 09:07 5 UNITS Albuterol (Ventolin Hfa Inhaler) 2 puffs Q4H PRN INH 05/29/17 18:45 06/28/17 18:44 Bisacodyl (Dulcolax Tab) 10 mg HS PO 05/29/17 21:00 06/28/17 20:59 05/29/17 22:37 10 MG Furosemide (Lasix Tab) 40 mg DAILY PO 05/30/17 09:00 06/29/17 08:59 05/30/17 08:59 40 MG Metoprolol Tartrate (Lopressor Tab) 25 mg BID PO 05/29/17 21:00 06/28/17 20:59 05/30/17 08:59 25 MG Amphetamine Aspartate/ Amphetam Sulf (Amphetamine Aspartate/Amph Sulf/Dextramphet) 10 mg QDL PO 05/30/17 12:30 06/13/17 12:29 Miscellaneous Information (Order Awaiting Action) 1 ea QS N/A 05/30/17 00:00 06/29/17 00:00 Insulin Detemir (Levemir Flexpen/ FlexTouch) 14 units BID SC 05/29/17 21:00 06/28/17 20:59 05/30/17 09:05 14 UNITS Miscellaneous Information (Consult Glycemic Management Pharmacy) 1 ea UD PRN N/A 05/29/17 19:02 06/28/17 19:01 Daptomycin (Consult) 1 ea UD PRN N/A 05/29/17 21:45 06/28/17 21:44 Linaclotide (Linzess) 145 mcg QAM PO 05/30/17 09:00 06/29/17 08:59 Non-Formulary Medication (Non-Formulary Patient'S Own Med) 1 ea DAILY PO 05/30/17 09:00 06/29/17 08:59 Vortioxetine (Trintellix) 20 mg DAILY PO 05/30/17 09:00 06/29/17 08:59 Review of Systems All systems were reviewed and are negative except as per HPI Physical Exam Date Time Temp Pulse Resp B/P (MAP) Pulse Ox O2 Delivery O2 Flow Rate FiO2 05/30/17 08:00 Room Air 05/30/17 07:33 36.8 86 15 142/69 (93) 95 Room Air 05/30/17 06:58 37.6 79 19 126/73 (90) 95 Nasal Cannula 2.0 05/30/17 01:00 CPAP 05/30/17 00:03 37.0 87 16 147/72 (97) 96 Room Air 05/29/17 23:40 Room Air 05/29/17 22:40 37.0 99 18 169/83 (111) 97 Room Air 05/29/17 21:00 37.0 99 18 169/83 97 Room Air 05/29/17 19:00 72 16 134/72 98 Room Air 05/29/17 17:00 36.8 88 16 147/88 98 Room Air 05/29/17 14:25 86 16 152/72 97 Room Air 05/29/17 13:37 36.8 90 18 142/62 98 Room Air General Appearance: WD/WN, no apparent distress Head: normocephalic, atraumatic Eyes: normal inspection, EOMI, sclerae normal ENT: normal ENT inspection, hearing grossly normal, pharynx normal Neck: supple, no adenopathy, thyroid normal, trachea midline Respiratory/Chest: chest non-tender, lungs clear, normal breath sounds, no respiratory distress Cardiovascular: regular rate, rhythm, no gallop, no murmur Abdomen/GI: normal bowel sounds, non tender, soft, no organomegaly Back: normal inspection, no CVA tenderness Extremities/Musculoskelatal: no calf tenderness, + inflammation (right great toe) Neurologic/Psych: alert, oriented x 3, + sensory deficit Skin: normal color, no rash, + pertinent finding (right great toe with ulceration, erythema, and foul odor, right heel ulcer) Lymphatic: no adenopathy Laboratory Results Date/Time Source Procedure Growth Status 05/29/17 18:02 Blood Blood Culture Pending Received 05/29/17 15:30 Blood Blood Culture Pending Received 05/29/17 15:15 Drainage - Surface Toe Right 1 Gram Stain - Final Resulted 05/29/17 15:15 Drainage - Surface Toe Right 1 Wound Culture Pending Resulted 05/29/17 15:15 Drainage - Surface Foot Right Gram Stain - Final Resulted 05/29/17 15:15 Drainage - Surface Foot Right Wound Culture Pending Resulted Last 24 Hours Test 05/29/17 16:01 05/29/17 16:07 05/30/17 00:00 05/30/17 03:49 White Blood Count 10.15 K/uL Red Blood Count 4.03 M/uL Hemoglobin 11.5 g/dL Hematocrit 36.5 % Mean Corpuscular Volume 90.6 fL Mean Corpuscular Hemoglobin 28.5 pg Mean Corpuscular Hemoglobin Concent 31.5 g/dl Platelet Count 276 K/uL Mean Platelet Volume 8.9 fL Neutrophils (%) (Auto) 67.6 % Lymphocytes (%) (Auto) 23.1 % Monocytes (%) (Auto) 5.6 % Eosinophils (%) (Auto) 3.1 % Basophils (%) (Auto) 0.4 % Neutrophils # (Auto) 6.87 K/uL Lymphocytes # (Auto) 2.34 K/uL Monocytes # (Auto) 0.57 K/uL Eosinophils # (Auto) 0.31 K/uL Basophils # (Auto) 0.04 K/uL RDW Standard Deviation 41.5 fL RDW Coefficient of Variation 12.5 % Immature Granulocyte % (Auto) 0.2 % Immature Granulocyte # (Auto) 0.02 K/uL Sodium Level 138 mmol/L Potassium Level 3.8 mmol/L Chloride Level 107 mmol/L Carbon Dioxide Level 20 mmol/L Anion Gap 11.0 mmol/L Blood Urea Nitrogen 73 mg/dl Creatinine 2.30 mg/dl Est Creatinine Clear Calc Drug Dose 31.0 ml/min Estimated GFR () 27.2 Estimated GFR (Non- 23.5 BUN/Creatinine Ratio 31.7 Random Glucose 264 mg/dl Calcium Level 9.7 mg/dl Total Bilirubin 0.1 mg/dl Aspartate Amino Transf (AST/SGOT) 15 U/L Alanine Aminotransferase (ALT/SGPT) 24 U/L Alkaline Phosphatase 123 U/L Total Protein 7.3 gm/dl Albumin 3.8 gm/dl Globulin 3.5 gm/dl Albumin/Globulin Ratio 1.1 Bedside Lactic Acid Venous 1.61 mmol/L Bedside Glucose 297 mg/dl 138 mg/dl Test 05/30/17 06:56 White Blood Count 8.57 K/uL Red Blood Count 3.71 M/uL Hemoglobin 10.8 g/dL Hematocrit 33.2 % Mean Corpuscular Volume 89.5 fL Mean Corpuscular Hemoglobin 29.1 pg Mean Corpuscular Hemoglobin Concent 32.5 g/dl Platelet Count 253 K/uL Mean Platelet Volume 8.7 fL Neutrophils (%) (Auto) 59.7 % Lymphocytes (%) (Auto) 27.3 % Monocytes (%) (Auto) 8.6 % Eosinophils (%) (Auto) 3.5 % Basophils (%) (Auto) 0.5 % Neutrophils # (Auto) 5.12 K/uL Lymphocytes # (Auto) 2.34 K/uL Monocytes # (Auto) 0.74 K/uL Eosinophils # (Auto) 0.30 K/uL Basophils # (Auto) 0.04 K/uL RDW Standard Deviation 40.1 fL RDW Coefficient of Variation 12.4 % Immature Granulocyte % (Auto) 0.4 % Immature Granulocyte # (Auto) 0.03 K/uL Sodium Level 140 mmol/L Potassium Level 4.1 mmol/L Chloride Level 112 mmol/L Carbon Dioxide Level 21 mmol/L Anion Gap 7.0 mmol/L Blood Urea Nitrogen 68 mg/dl Creatinine 1.80 mg/dl Est Creatinine Clear Calc Drug Dose 39.7 ml/min Estimated GFR () 36.6 Estimated GFR (Non- 31.6 BUN/Creatinine Ratio 37.7 Random Glucose 161 mg/dl Estimated Average Glucose 223 mg/dl Hemoglobin A1c 9.4 % Calcium Level 9.1 mg/dl Magnesium Level 2.3 mg/dl Patient Name: GRECIA ROSADO Unit Number: [id number] Dictated: 05/29/171622 Transcribed: 05/29/171622 PBS Printed Date/Time: [~ rep prt dt]/[~ rep prt tm] [~ rep ct labl] - [~ rep ct ivnm] [facility] [place] [address] Dictated: 05/29/171622 Transcribed: 05/29/171622 PBS Printed Date/Time: [~ rep prt dt]/[~ rep prt tm] [~ rep ct labl] - [~ rep ct ivnm] R FOOT MIN 3 VIEWS ROUTINE CLINICAL HISTORY: 52 years-old Female presenting with ULCER R POST HEEL AND R GREAT TOE TIP, HX OF OSTEO. TECHNIQUE: Frontal, oblique, and lateral views of the right foot were obtained. COMPARISON: 10/08/2012. FINDINGS: Interval evolution of postsurgical changes of the head and neck of the fifth metatarsal with chronic deformity. In comparison to prior, the tuft of the distal phalanx of the great toe is less distinct and likely eroded. At the site of ulceration in the posterior heel, no subjacent osseous erosion of the calcaneus is apparent. No degenerative change. No acute fracture or malalignment. Osteopenia suggested. IMPRESSION: 1. Osseous erosion of the tuft of the distal phalanx of the first toe concerning for osteomyelitis. 2. No osseous erosion subjacent to the site of ulceration in the posterior heel. MR is more sensitive for the diagnosis of osteomyelitis. 3. Postsurgical changes of the fifth metatarsal. Electronically signed by: Rashaad Richter M.D. 05/29/2017 4:26 PM Dictated Date/Time: 05/29/2017 4:23 PM The status of this report is Signed. Draft = Not yet reviewed or approved by Radiologist. Signed = Reviewed and approved by Radiologist. <AttendingPhy></AttendingPhy> <FamilyPhy>Devon Biggs D.OOscar</FamilyPhy> < PrimaryPhy>Devon Biggs D.O.</PrimaryPhy> <UnitNumber>[id number]</ UnitNumber> <VisitNumber>[id number]</VisitNumber> <PatientName>GRECIA ROSADO </PatientName> <DateOfBirth>1965</DateOfBirth> <Location>[facility]</Location> <ServiceDate>05/29/17</ServiceDate> <MNE>ESINDI</MNE> <OrderingPhy>Britney Saldana</OrderingPhy> <OrderingPhyMNE>f rep ord dr molina</OrderingPhyMNE> < DictatingPhyMNE>f rep dict dr molina</DictatingPhyMNE> <CCListMNE>f rep ct tracy</ CCListMNE> <AdmittingPhyMNE>f pt admit dr molina</AdmittingPhyMNE> <AttendingPhyMNE >f pt attend dr molina</AttendingPhyMNE> <ConsultingPhyMNE>f pt consult dr molina</ConsultingPhyMNE> <FamilyPhyMNE>f pt fam dr molina</FamilyPhyMNE> <OtherPhyMNE>f pt other dr molina</OtherPhyMNE> < PrimaryPhyMNE>f pt prim care dr molina</PrimaryPhyMNE> <ReferringPhyMNE>f pt referring dr molina</ReferringPhyMNE> Assessment & Plan Probable osteomyelitis of the right great toe in a diabetic female with severe neuropathy. Current antibiotic therapy appropriate given multiple allergies, and will be adjusted once further culture results are available. Would obtain MRI scan to better define extent of infection. Will follow.
[2017-05-30 10:53] VITALS: BMI 28.1
[2017-05-30] MEDS: NON-FORMULARY PATIENT'S OWN MED PO SCH (11:17)
[2017-05-30] MEDS: VORTIOXETINE HBR 20 MG PO SCH (11:18)
[2017-05-30] MEDS: LINACLOTIDE 145 MCG CAP PO SCH (11:19)
--- NOTE | 2017-05-30 11:34 | Pharmacy Progress Note ---
Glycemic Control Progress Note Date of Service May 30, 2017. Scope Glycemic Pharmacist consulted for glycemic control to write orders per [facility] inpatient glycemic control protocol. Objective Accuchecks BSG (last 24hrs): Test 05/29/17 16:01 05/30/17 00:00 05/30/17 03:49 05/30/17 06:56 Random Glucose 264 mg/dl (70-99) 161 mg/dl (70-99) Bedside Glucose 297 mg/dl (70-90) 138 mg/dl (70-90) HbA1c: Test 05/30/17 06:56 Hemoglobin A1c 9.4 % (4.5-5.6) H Recent Pertinent Medications The patient is currently receiving: * Basal insulin: Levemir 14 units every 12 hours * Correctional Insulin: Novolog Correction per scale ACHS Goal Range: Low 110 mg/dL - High 140 mg/dL Correction Factor: 25 mg/dL/unit * Prandial insulin: Per carb ratio of 1 unit per 10 grams CHO consumed Assessment & Plan ASSESSMENT: * See progress note from 05/29/17 for more background info, in short: * Pt receiving SQ basal bolus insulin regimen for hyperglycemia secondary to baseline DM (outpatient regimen is SQ basal bolus),stress/infection, * BSGs elevated on admission secondary to infection. Hyperglycemia resolving with initiation of SQ basal bolus insulin regimen that worked well on previous admissions. * Changes needed to insulin regimen: * AM Fasting BSG = 161 mg/dl. This is in slightly above goal range for patient based on inpatient targets and co-morbidities. However, expect this to trend down as infection is adequately treated and steady state with insulin is reached. Pt is currently receiving outpatient dosing. Pt has required 10-16 units BID on previous admissions. Will change to Lantus scale dosing until needs are determined. * Post-prandial BSGs are above goal range, need to tighten CF/CR * Additional notes / comments: A1c increased from 8.6% 05/09/17 to 9.4% on . Unsure of the clinical significance of this as pt has CKD which can alter RBC turnover rate and effect the validity of the A1c. BSGs may have been elevated over the past few weeks secondary to infection and therefore increased A1c. PLAN FOR INPATIENT GLYCEMIC CONTROL: No changes needed at this time. * Basal insulin * Levemir SQ BID * 14 units SQ if BSG < 180 * 16 units SQ if BSG > 180 * Bolus insulin * NovoLog per scale ACHS or Q6hrs while NPO * Goal Range: Low 110 mg/dL - High 140 mg/dL * Correction Factor: 20 mg/dL/unit * Nutritional / Prandial insulin per carb ratio of 1 unit per 7 grams CHO consumed * Please note that the plan above was derived based on current level of insulin resistance and hospital stress. These recommendations are appropriate for inpatient admission only. Plan of care upon discharge will need to be reassessed to avoid potential outpatient hypo/hyperglycemia. Thank you.
[2017-05-30] MEDS ORDERED: AZTREONAM IV 2,000 MG in DEXTROSE 5% 100ML 100 ML IV ONE (12:45)
[2017-05-30] MEDS ORDERED: AZTREONAM CONSULT ACTIVE PRN ×2 (12:45)
[2017-05-30] MEDS: AMPHETAMINE ASP/SULF/DEXTRAMPH 10 MG TAB PO SCH (13:21)
--- NOTE | 2017-05-30 13:40 | Wound Consultation: Inpatient ---
Wound Consultation Date of Consultation: May 30, 2017. Attending Physician: Yonas Mak MD Reason for Consultation: Ulcerations right great toe and right heel History of Present Illness Patient states she got a blister formation on her right heel approximately one month ago. Patient states her was applied Aquacel dressings to the area. It increased in size. Patient states she also developed a new ulceration on the front of her right great toe approximately one week ago. Patient states is consistent drainage and odor from the site. Patient denies any increased swelling or redness of the foot. Patient denies any pain. Patient denies any fever chills or night sweats. Patient denies any chest pain shortness of breath abdominal discomfort nausea or vomiting. Patient denies any other systemic complaints at this time. Family History FH: CAD (coronary artery disease) FATHER (NM at age 47, CABG x 4 ) Social History Smoking Status: Current Every Day Smoker Drug Use: none Marital Status: Housing Status: lives with family Occupation Status: disabled Allergies Coded Allergies: Penicillins (Verified Allergy, Intermediate, BLOTCHY SKIN/ ITCHY, 05/29/17) Vancomycin (Unverified Allergy, Intermediate, SHORTNESS OF BREATH, 05/29/17 ) PATIENT RECEIVED VANCOMYCIN (>10 DOSES) SEP-OCT 2012. THEREFORE LISTED REACTION OF SOB IS UNLIKELY TO BE 2ND ANAPHYLAXIS Clopidogrel (Verified Allergy, Mild, rash, 05/29/17) rash due to Plavix or ertapenem Ertapenem (Verified Allergy, Mild, rash, 05/29/17) rash due to Plavix or ertapenem? Cephalosporins (Verified Allergy, Unknown, CECLOR-UNKNOWN, 05/29/17) Erythromycin (Unverified Allergy, Unknown, FROM H AND P-RASH, 05/29/17) Statins (Unverified Allergy, Unknown, MYALGIA, 05/29/17) Codeine (Verified Adverse Reaction, Unknown, VOMITING, 05/29/17) Nitrofurantoin (Unverified Adverse Reaction, Unknown, vomiting, 05/29/17) Pregabalin (Unverified Adverse Reaction, Unknown, VERY EMOTIONAL CRYING, ) Home Medications Scheduled Amphetamine-Dextroamphetamine 10MG (Adderall 10MG), 10 MG PO DAILY Amphetamine-Dextroamphetamine 30MG (Adderall Xr 30MG), 30 MG PO DAILY Aspirin (Aspirin Ec), 162 MG PO HS Biotin (Biotin 5000), 5 MG PO QPM Bisacodyl (Bisacodyl EC), 10 MG PO HS Cholecalciferol (D-5000), 5,000 UNITS PO DAILY Cranberry (Vaccinium Macrocarp (Cranberry Extract), 500 MG PO QAM Furosemide (Lasix), 40 MG PO DAILY Insulin Aspart (Novolog), 1 UNIT SC AC Insulin Detemir (Levemir), 14 UNITS SC BID Linaclotide (Linzess), 145 MCG PO QAM Loratadine (Claritin), 10 MG PO QAM Lorazepam (Lorazepam), 1 MG PO HS Metoclopramide Hcl (Reglan), 10 MG PO QID Metoprolol Tartrate (Lopressor) (Lopressor), 1 TAB PO BID Ondansetron (Ondansetron HCl), 8 MG PO TID Pantoprazole (Protonix), 40 MG PO BID Ranitidine (Zantac), 150 MG PO BID Thyroid (Wp Thyroid), 1 TAB PO DAILY Travoprost (Travatan Z), 1 DROPS OP HS Vortioxetine HBr (Trintellix), 1 TAB PO DAILY Scheduled PRN Albuterol Hfa (Ventolin Hfa), 2 PUFFS INH Q4 PRN for SOB/Wheezing Olopatadine Hydrochloride (Pataday), 1 DROPS OPB DAILY PRN for prn Inpatient Medications Current Inpatient Medications Medications (Trade) Dose Ordered Sig/Kike Route Start Time Stop Time Status Last Admin Dose Admin Heparin Sodium (Porcine) (Heparin Sq 5000 Unit/0.5ml) 5,000 unit Q8 SQ 05/29/17 22:00 06/28/17 21:59 Acetaminophen (Tylenol Tab) 650 mg Q4H PRN PO 05/29/17 18:30 06/28/17 18:29 Al Hydrox/Mg Hydrox/Simethicone (Maalox Max Susp) 15 ml Q4H PRN PO 05/29/17 18:30 06/28/17 18:29 Magnesium Hydroxide (Milk Of Magnesia Susp) 30 ml Q6H PRN PO 05/29/17 18:30 06/28/17 18:29 Polyethylene (Miralax Powder Packet) 17 gm DAILY PRN PO 05/29/17 18:30 06/28/17 18:29 Ondansetron HCl (Zofran Inj) 4 mg Q6H PRN IV 05/29/17 18:30 06/28/17 18:29 Daptomycin 500 mg/ Sodium Chloride 60 ml @ 100 mls/hr Q24H IV 05/29/17 22:00 07/10/17 21:59 05/29/17 22:48 100 MLS/HR Aspirin (Ecotrin Tab) 162 mg HS PO 05/29/17 21:00 06/28/17 20:59 05/29/17 22:38 162 MG Loratadine (Claritin Tab) 10 mg QAM PO 05/30/17 09:00 06/29/17 08:59 05/30/17 08:59 10 MG Lorazepam (Ativan Tab) 1 mg HS PO 05/29/17 21:00 06/28/17 20:59 05/29/17 22:36 1 MG Metoclopramide HCl (Reglan Tab) 10 mg QID PO 05/29/17 21:00 06/28/17 20:59 05/30/17 12:47 10 MG Ondansetron HCl (Zofran Tab) 8 mg TID PO 05/29/17 21:00 06/28/17 20:59 05/30/17 08:58 8 MG Pantoprazole Sodium (Protonix Tab) 40 mg BID PO 05/29/17 21:00 06/28/17 20:59 05/30/17 08:59 40 MG Ranitidine HCl (zANTac TAB) 150 mg BID PO 05/29/17 21:00 06/28/17 20:59 05/30/17 09:00 150 MG Travoprost (Travatan Z) 1 drops HS OP 05/29/17 21:00 06/28/17 20:59 05/29/17 22:36 1 DROPS Cholecalciferol (Vitamin D Tab) 5,000 inter.unit DAILY PO 05/30/17 09:00 06/29/17 08:59 05/30/17 08:58 5,000 INTER.UNIT Miscellaneous Information (Order Awaiting Action) 1 ea QS N/A 05/30/17 00:00 06/29/17 00:00 Insulin Aspart (novoLOG ASPART) SLIDING SCALE G... ACHS SC 05/29/17 21:00 10/27/17 20:59 05/30/17 12:53 8 UNITS Albuterol (Ventolin Hfa Inhaler) 2 puffs Q4H PRN INH 05/29/17 18:45 06/28/17 18:44 Bisacodyl (Dulcolax Tab) 10 mg HS PO 05/29/17 21:00 06/28/17 20:59 05/29/17 22:37 10 MG Furosemide (Lasix Tab) 40 mg DAILY PO 05/30/17 09:00 06/29/17 08:59 05/30/17 08:59 40 MG Metoprolol Tartrate (Lopressor Tab) 25 mg BID PO 05/29/17 21:00 06/28/17 20:59 05/30/17 08:59 25 MG Amphetamine Aspartate/ Amphetam Sulf (Amphetamine Aspartate/Amph Sulf/Dextramphet) 10 mg QDL PO 05/30/17 12:30 06/13/17 12:29 05/30/17 13:21 10 MG Miscellaneous Information (Order Awaiting Action) 1 ea QS N/A 05/30/17 00:00 06/29/17 00:00 Insulin Detemir (Levemir Flexpen/ FlexTouch) 14 units BID SC 05/29/17 21:00 06/28/17 20:59 05/30/17 09:05 14 UNITS Miscellaneous Information (Consult Glycemic Management Pharmacy) 1 ea UD PRN N/A 05/29/17 19:02 06/28/17 19:01 Daptomycin (Consult) 1 ea UD PRN N/A 05/29/17 21:45 06/28/17 21:44 Linaclotide (Linzess) 145 mcg QAM PO 05/30/17 09:00 06/29/17 08:59 Non-Formulary Medication (Non-Formulary Patient'S Own Med) 1 ea DAILY PO 05/30/17 09:00 06/29/17 08:59 05/30/17 11:17 1 EA Vortioxetine (Trintellix) 20 mg DAILY PO 05/30/17 09:00 06/29/17 08:59 05/30/17 11:18 20 MG Aztreonam 2000 mg/ Dextrose 110 ml @ 100 mls/hr Q8H IV 05/30/17 20:00 07/11/17 19:59 Aztreonam 2000 mg/ Dextrose 110 ml @ 100 mls/hr NOW ONCE IV 05/30/17 12:45 05/30/17 13:50 05/30/17 13:22 100 MLS/HR Aztreonam (Consult) 1 ea UD PRN N/A 05/30/17 12:45 06/29/17 12:44 Amphetamine/ Dextroamphetamine (Adderall Xr 30 Mg) 30 mg BID@0800,1200 PO 05/30/17 14:30 06/29/17 14:29 Review of Systems 10 systems were reviewed and they're entirety and positive findings were noted in chief complaint history of present illness. Physical Exam Date Time Temp Pulse Resp B/P (MAP) Pulse Ox O2 Delivery O2 Flow Rate FiO2 05/30/17 08:00 Room Air 05/30/17 07:33 36.8 86 15 142/69 (93) 95 Room Air 05/30/17 06:58 37.6 79 19 126/73 (90) 95 Nasal Cannula 2.0 05/30/17 01:00 CPAP 05/30/17 00:03 37.0 87 16 147/72 (97) 96 Room Air 05/29/17 23:40 Room Air 05/29/17 22:40 37.0 99 18 169/83 (111) 97 Room Air 05/29/17 21:00 37.0 99 18 169/83 97 Room Air 05/29/17 19:00 72 16 134/72 98 Room Air 05/29/17 17:00 36.8 88 16 147/88 98 Room Air 05/29/17 14:25 86 16 152/72 97 Room Air 05/29/17 13:37 36.8 90 18 142/62 98 Room Air General: The patient is sitting in a hospital bed in no distress. Alert, cooperative and appropriate to all questions. HEENT: Pupils equal and reactive to light. Sclera clear, EOM intact. Neck: Supple, No JVD noted Chest: CTA in all montanez. No deformity Heart: RRR without murmurs, S3, S4, thrills, rubs or heaves Extremities: Laceration to the right heel measures 3.5 x 2.5 x 0.1 cm. There is undermining his skin and some peripheral slough noted. There is a central region of deep tissue injury noted. No active drainage present no periwound erythema noted. Additional ulceration is present in the distal portion of the right great toe measuring 1.8 x 2.1 x 0.1 cm. There is undermining skin Central slough and some eschar formation noted. No current active drainage or odor noted. No significant swelling of the digit. No pain swelling or redness noted to the foot. Pulses are present. Neurological: Alert and oriented x3. No focal deficits. Skin: No rashes, papules, vesicles, excoriations Laboratory Results Last 24 Hours Test 05/29/17 16:01 05/29/17 16:07 05/30/17 00:00 05/30/17 03:49 White Blood Count 10.15 K/uL Red Blood Count 4.03 M/uL Hemoglobin 11.5 g/dL Hematocrit 36.5 % Mean Corpuscular Volume 90.6 fL Mean Corpuscular Hemoglobin 28.5 pg Mean Corpuscular Hemoglobin Concent 31.5 g/dl Platelet Count 276 K/uL Mean Platelet Volume 8.9 fL Neutrophils (%) (Auto) 67.6 % Lymphocytes (%) (Auto) 23.1 % Monocytes (%) (Auto) 5.6 % Eosinophils (%) (Auto) 3.1 % Basophils (%) (Auto) 0.4 % Neutrophils # (Auto) 6.87 K/uL Lymphocytes # (Auto) 2.34 K/uL Monocytes # (Auto) 0.57 K/uL Eosinophils # (Auto) 0.31 K/uL Basophils # (Auto) 0.04 K/uL RDW Standard Deviation 41.5 fL RDW Coefficient of Variation 12.5 % Immature Granulocyte % (Auto) 0.2 % Immature Granulocyte # (Auto) 0.02 K/uL Sodium Level 138 mmol/L Potassium Level 3.8 mmol/L Chloride Level 107 mmol/L Carbon Dioxide Level 20 mmol/L Anion Gap 11.0 mmol/L Blood Urea Nitrogen 73 mg/dl Creatinine 2.30 mg/dl Est Creatinine Clear Calc Drug Dose 31.0 ml/min Estimated GFR () 27.2 Estimated GFR (Non- 23.5 BUN/Creatinine Ratio 31.7 Random Glucose 264 mg/dl Calcium Level 9.7 mg/dl Total Bilirubin 0.1 mg/dl Aspartate Amino Transf (AST/SGOT) 15 U/L Alanine Aminotransferase (ALT/SGPT) 24 U/L Alkaline Phosphatase 123 U/L Total Protein 7.3 gm/dl Albumin 3.8 gm/dl Globulin 3.5 gm/dl Albumin/Globulin Ratio 1.1 Bedside Lactic Acid Venous 1.61 mmol/L Bedside Glucose 297 mg/dl 138 mg/dl Test 05/30/17 06:56 05/30/17 12:00 White Blood Count 8.57 K/uL Red Blood Count 3.71 M/uL Hemoglobin 10.8 g/dL Hematocrit 33.2 % Mean Corpuscular Volume 89.5 fL Mean Corpuscular Hemoglobin 29.1 pg Mean Corpuscular Hemoglobin Concent 32.5 g/dl Platelet Count 253 K/uL Mean Platelet Volume 8.7 fL Neutrophils (%) (Auto) 59.7 % Lymphocytes (%) (Auto) 27.3 % Monocytes (%) (Auto) 8.6 % Eosinophils (%) (Auto) 3.5 % Basophils (%) (Auto) 0.5 % Neutrophils # (Auto) 5.12 K/uL Lymphocytes # (Auto) 2.34 K/uL Monocytes # (Auto) 0.74 K/uL Eosinophils # (Auto) 0.30 K/uL Basophils # (Auto) 0.04 K/uL RDW Standard Deviation 40.1 fL RDW Coefficient of Variation 12.4 % Immature Granulocyte % (Auto) 0.4 % Immature Granulocyte # (Auto) 0.03 K/uL Sodium Level 140 mmol/L Potassium Level 4.1 mmol/L Chloride Level 112 mmol/L Carbon Dioxide Level 21 mmol/L Anion Gap 7.0 mmol/L Blood Urea Nitrogen 68 mg/dl Creatinine 1.80 mg/dl Est Creatinine Clear Calc Drug Dose 39.7 ml/min Estimated GFR () 36.6 Estimated GFR (Non- 31.6 BUN/Creatinine Ratio 37.7 Random Glucose 161 mg/dl Estimated Average Glucose 223 mg/dl Hemoglobin A1c 9.4 % Calcium Level 9.1 mg/dl Magnesium Level 2.3 mg/dl Bedside Glucose 289 mg/dl Assessment & Plan Assessment: Unstageable pressure ulcer right heel Stage II pressure ulcer first digit right foot in the face of diabetes Plan: Both sites required debridement. With patient's permission after reapplication topical Xylocaine 4% saturated debrided with a combination of scissors forceps and a #5 curette. Surrounding eschar overlying skin, central slough and subcutaneous tissue was removed. Bleeding was controlled with direct pressure. the sites will be dressed with Aquacel Ag and gauze changed with daily basis. patient will be evaluated by the diabetic clinic for ongoing offloading issues. Patient continued to be monitored during her hospitalization followed up in the outpatient clinic upon discharge. This represented an excisional debrided of less than 20 cm.
[2017-05-30] MEDS: ADDERALL 30 MG PO SCH (14:30)
[2017-05-30] MEDS: AMPHETAMINE-DEXTROAMPHETAMINE 30 MG CAP PO SCH (14:30)
[2017-05-30 14:44] VITALS: BP 132/78; PULSE 80; TEMP 36.7; O2SAT 94
[2017-05-30] MEDS: AZTREONAM IV 2,000 MG in DEXTROSE 5% 100ML 100 ML IV SCH (20:00)
--- NOTE | 2017-05-30 20:19 | Progress Note ---
Internal Med Progress Note Date of Service: May 30, 2017. Provider Documentation: SUBJECTIVE: resting comfortably no sob or chest pain no cough had mild temp spike no pain OBJECTIVE: Vital Signs-as noted below Exam: General-alert and awake. not in distress ENT-normal hearing Neck-no neck masses supple Lungs-cta b/l no wheezing or crackles Heart-s1 and s2 heard regular rate and rhythm no murmurs Abdomen-soft bowel sounds present non tender no distension Extremities-no erythema draining pressure ulcer on the right heel and right big toe-in dressing Neuro-alert and awake moves extremities Lab data as noted below. ASSESSMENT & PLAN: This is a 52-year-old female who presents with non-healing foot ulcer. 1. Nonhealing right foot ulcer. Right heel pressure ulcer is stage III to IV, was there before and the right first toe ulcer is new, foul smelling drainage, possible osteomyelitis on x-ray of the right first toe. THE PATIENT IS ALLERGIC TO MULTIPLE ANTIBIOTICS. on iv daptomcyin and azactum ID and wound care ion board to f/u MRI and cultures. 2. History of right-sided heart failure, diastolic dysfunction, chronic, currently stable. Continue home Lasix.stable. 3. Coronary artery disease status post coronary artery bypass grafting. Continue aspirin, beta kathy. Not on statin.stabkle. 4. History of bipolar and attention deficit disorder, on Trintellix, Ativan and Adderall.stabel. 5. Acute renal failure and chronic kidney disease stage III, baseline creatinine around 1.8, presented with creatinine of 2.3. cr 1.8 today.We will follow the labs. 6. History of diabetes. Continue home Lantus plus insulin sliding scale. HbA1c levels 9.4. appreciate pharmacy inputs 7. History of gastroesophageal reflux disease. Continue proton pump inhibitor and Zantac. 8. History of hypertension, on metoprolol. We will follow the blood pressure. 9. History of constipation, on linzess.. 10. History of anemia from chronic kidney disease. We will follow the labs. 11. History of gastroparesis, on Reglan. 12. History of obstructive sleep apnea, on CPAP. 13. Deep venous thrombosis prophylaxis. Heparin subQ DISPOSITION to be determined pt/ot social service for d/c planning Vital Signs: Date Time Temp Pulse Resp B/P (MAP) Pulse Ox O2 Delivery O2 Flow Rate FiO2 9/28/17 14:44 36.7 80 18 132/78 (96) 94 Room Air 05/30/17 08:00 Room Air 05/30/17 07:33 36.8 86 15 142/69 (93) 95 Room Air 05/30/17 06:58 37.6 79 19 126/73 (90) 95 Nasal Cannula 2.0 05/30/17 01:00 CPAP 05/30/17 00:03 37.0 87 16 147/72 (97) 96 Room Air 05/29/17 23:40 Room Air 05/29/17 22:40 37.0 99 18 169/83 (111) 97 Room Air 05/29/17 21:00 37.0 99 18 169/83 97 Room Air Lab Results: Results Past 24 Hours Test 05/30/17 00:00 05/30/17 03:49 05/30/17 06:56 05/30/17 08:07 Range/Units Bedside Glucose 297 138 165 70-90 mg/dl White Blood Count 8.57 4.8-10.8 K/uL Red Blood Count 3.71 4.2-5.4 M/uL Hemoglobin 10.8 12.0-16.0 g/dL Hematocrit 33.2 37-47 % Mean Corpuscular Volume 89.5 80-100 fL Mean Corpuscular Hemoglobin 29.1 25-34 pg Mean Corpuscular Hemoglobin Concent 32.5 32-36 g/dl Platelet Count 253 130-400 K/uL Mean Platelet Volume 8.7 7.4-10.4 fL Neutrophils (%) (Auto) 59.7 % Lymphocytes (%) (Auto) 27.3 % Monocytes (%) (Auto) 8.6 % Eosinophils (%) (Auto) 3.5 % Basophils (%) (Auto) 0.5 % Neutrophils # (Auto) 5.12 1.4-6.5 K/uL Lymphocytes # (Auto) 2.34 1.2-3.4 K/uL Monocytes # (Auto) 0.74 0.11-0.59 K/uL Eosinophils # (Auto) 0.30 0-0.5 K/uL Basophils # (Auto) 0.04 0-0.2 K/uL RDW Standard Deviation 40.1 36.4-46.3 fL RDW Coefficient of Variation 12.4 11.5-14.5 % Immature Granulocyte % (Auto) 0.4 % Immature Granulocyte # (Auto) 0.03 0.00-0.02 K/uL Sodium Level 140 136-145 mmol/L Potassium Level 4.1 3.5-5.1 mmol/L Chloride Level 112 98-107 mmol/L Carbon Dioxide Level 21 21-32 mmol/L Anion Gap 7.0 3-11 mmol/L Blood Urea Nitrogen 68 7-18 mg/dl Creatinine 1.80 0.60-1.20 mg/dl Est Creatinine Clear Calc Drug Dose 39.7 ml/min Estimated GFR () 36.6 Estimated GFR (Non- 31.6 BUN/Creatinine Ratio 37.7 10-20 Random Glucose 161 70-99 mg/dl Estimated Average Glucose 223 mg/dl Hemoglobin A1c 9.4 4.5-5.6 % Calcium Level 9.1 8.5-10.1 mg/dl Magnesium Level 2.3 1.8-2.4 mg/dl Test 05/30/17 12:00 05/30/17 16:58 Range/Units Bedside Glucose 289 196 70-90 mg/dl
[2017-05-30] MEDS: ASPIRIN 81 MG ECTAB PO SCH (21:35)
[2017-05-30] MEDS: LORAZEPAM 1 MG TAB PO SCH (21:39)
[2017-05-30] MEDS: DAPTOmycin IV 500 MG in SODIUM CHLORIDE 0.9% 50ML 50 ML IV SCH (21:39)
[2017-05-30] MEDS: TRAVOPROST Z 0.004% OPH SOLN 2.5 ML BTL OP SCH (21:43)
--- NOTE | 2017-05-30 22:47 | DIAGNOSTIC IMAGING REPORT ---
RIGHT HINDFOOT MRI CLINICAL HISTORY: pressure ulcers right foot COMPARISON STUDY: Right foot 05/29/2017. TECHNIQUE: Multiplanar multisequence MRI of the right hindfoot was performed without the use of intravenous contrast. FINDINGS: The flexor, extensor, peroneal, and Achilles tendons are intact. No loculated fluid collections to suggest an abscess. Mild soft tissue edema seen throughout the hindfoot. No cortical destruction to suggest osteomyelitis. Specifically, there is a normal marrow signal intensity within the calcaneus. Subchondral edema within the lateral talar dome. There is a small subchondral fracture within the lateral talar dome. No depression/displacement. Mild cartilage space narrowing within the tibiotalar joint consistent with degenerative change. Edema within the plantar muscles which could be due to denervation/neuropathy. There is fatty atrophy of the lateral plantar muscle. IMPRESSION: 1. No MRI evidence for osteomyelitis within the calcaneus. 2. Fatty atrophy of the lateral plantar muscle and edema throughout the remaining plantar muscles. This favors denervation/neuropathy. 3. Small focal area of subchondral edema with a small subchondral fracture at the lateral talar dome. This could represent a developing osteochondral lesion. 4. Mild diffuse soft tissue edema within the hindfoot. Electronically signed by: Justin Ramirez M.D. 05/30/2017 10:45 PM Dictated Date/Time: 05/30/2017 10:40 PM
[2017-05-30 23:45] VITALS: BP 149/72; PULSE 88; TEMP 36.7; O2SAT 95
[2017-05-30] MEDS: BISACODYL 5 MG TABEC PO SCH (23:59)
[2017-05-31] MEDS: INSULIN ASPART 100 UNITS/ML 3 ML PEN SC SCH ×6 (00:12→20:56)
[2017-05-31] MEDS: HEPARIN SOD 5000 UNIT/0.5 ML CARP SQ SCH ×3 (04:13→22:00)
[2017-05-31] MEDS: AZTREONAM IV 2,000 MG in DEXTROSE 5% 100ML 100 ML IV SCH ×3 (04:26→20:45)
[2017-05-31 06:09] LABS: BASO % 0.7 %; BASO ABS # 0.05 K/uL (0-0.2); COMPLETE YES; HEMATOCRIT 31.6 % (37-47); IG% 0.4 %; LYMPH % 32.5 %; LYMPH ABS # 2.27 K/uL (1.2-3.4); MEAN CELL VOLUME 89.5 fL (80-100); MEAN CORPUSCULAR HGB CONC 33.5 g/dl (32-36); MEAN PLATELET VOLUME 9.2 fL (7.4-10.4); MONO % 8.2 %; NEUT % 54.2 %; PLATELET COUNT 281 K/uL (130-400); RED BLOOD COUNT 3.53 M/uL (4.2-5.4); WHITE BLOOD COUNT 6.98 K/uL (4.8-10.8)
[2017-05-31 06:55] LABS: BUN/CREATININE RATIO 29.4 (10-20); CALCIUM 8.9 mg/dl (8.5-10.1); CREATININE 2.2 mg/dl (0.60-1.20); POTASSIUM 4.1 mmol/L (3.5-5.1)
[2017-05-31 06:56] VITALS: BP 108/43; PULSE 87; TEMP 35.8; O2SAT 95
--- NOTE | 2017-05-31 07:08 | DIAGNOSTIC IMAGING REPORT ---
R LOWER EXT NONJOINT W/O CLINICAL HISTORY: 52 years-old Female presenting with ? OSTEOMYLITIS, pressure ulcers of the right foot, great toe for 4 to 5 days, he'll for 40 weeks, diabetes, history of infections, no prior surgery. TECHNIQUE: Multisequence, multiplanar MR imaging of the right forefoot was performed without the use of intravenous contrast. IV contrast: None. COMPARISON: Plain radiographs of the right foot from 05/29/2017. FINDINGS: Localizer images: Unremarkable. At the distal phalanx of the first toe, extensive T2 hyperintense, T1 hypointense abnormal marrow signal intensity noted extending from the tuft to the proximal metadiaphysis. The base of the distal phalanx maintains normal T1 hyperintense marrow signal. No associated fluid in the interphalangeal joint of the first toe. The proximal phalanx of the first toe demonstrates normal marrow signal intensity. An associated defect of the cutis at the distal first toe noted with subcutaneous edema. Postsurgical changes of the fifth metatarsal. Mild diffuse subcutaneous edema in the forefoot. Increased signal intensity of the musculature in the superficial flexor compartment may be reactive. The calcaneus was not included within the [id number] for assessment of the reported heel ulcer. No fluid collection is evident allowing for noncontrast technique. IMPRESSION: Findings consistent with osteomyelitis of the distal phalanx of the first toe subjacent to the ulcer. This does not appear to involve the interphalangeal joint. Electronically signed by: Rashaad Richter M.D. 05/31/2017 7:07 AM Dictated Date/Time: 05/31/2017 7:03 AM
--- NOTE | 2017-05-31 07:25 | Clinical Documentation Query ---
Dr. GODINEZ [facility] : CLINICAL DOCUMENTATION QUERY Patient is a 52 year old female admitted for evaluation and treatment of a "nonhealing right foot ulcer" and stage III-IV right heel pressure ulcer. Patient was seen in consultation by ID and wound care. Multiple imaging studies performed. Recieving IV antibiotics with cultures pending. Please clarify as clinically appropriate. Thank you. In your clinical opinion is this patient being managed for: ( x ) Nonhealing diabetic right foot ulcer ( x ) Nonhealing right foot pressure ulcer, stage_3-4___ ( ) Not Agree ( ) Other explanation of clinical findings (Please Explain) ( ) Unable to determine (Please Define) ( ) Need to Discuss The medical record reflects the following clinical findings, treatment, and risk factors. Clinical Indicators: As above Treatment:Patient was seen in consultation by ID and wound care. Multiple imaging studies performed. Recieving IV antibiotics with cultures pending Risk Factors: Age, diabetes with neuropathy, smoking Please clarify and document your clinical opinion in the progress notes and discharge summary. Terms such as "probable", "suspected", "likely", "questionable", "possible", or "still to be ruled out" are acceptable. IF IN AGREEMENT, YOU MUST DOCUMENT ABOVE DIAGNOSTIC STATEMENT IN DAILY PROGRESS NOTES AND DISCHARGE SUMMARY. This document is not part of the patient's record. Thank You, Julián Hardy, DEE DEE [phone]
[2017-05-31 07:30] VITALS: TEMP 36.6
[2017-05-31] MEDS: ADDERALL 30 MG PO SCH ×2 (08:00→12:00)
[2017-05-31] MEDS: PATADAY~ORDER AWAITING ACTION SCH ×4 (08:00→23:15)
[2017-05-31] MEDS: AMPHETAMINE-DEXTROAMPHETAMINE 30 MG CAP PO SCH ×2 (08:00→12:00)
[2017-05-31] MEDS: LINACLOTIDE 145 MCG CAP PO SCH (09:00)
[2017-05-31] MEDS: METOCLOPRAMIDE HCL 10 MG TAB PO SCH ×4 (09:26→20:49)
[2017-05-31] MEDS: CHOLECALCIFEROL 1000 INTER.UNIT TAB PO SCH (09:27)
[2017-05-31] MEDS: METOPROLOL TARTRATE 25 MG TAB PO SCH ×2 (09:27→20:49)
[2017-05-31] MEDS: ONDANSETRON 8 MG TAB PO SCH ×3 (09:27→20:50)
[2017-05-31] MEDS: FUROSEMIDE 40 MG TAB PO SCH (09:28)
[2017-05-31] MEDS: RANITIDINE HCL 150 MG TAB PO SCH ×2 (09:28→20:49)
[2017-05-31] MEDS: PANTOprazole SOD 40 MG TAB PO SCH ×2 (09:28→20:48)
[2017-05-31] MEDS: VORTIOXETINE HBR 20 MG PO SCH (09:28)
[2017-05-31] MEDS: LORATADINE 10 MG TAB PO SCH (09:28)
[2017-05-31] MEDS: NON-FORMULARY PATIENT'S OWN MED PO SCH (09:29)
[2017-05-31] MEDS: INSULIN DETEMIR FLEXPEN/FLEX TOUCH 100 UNITS/ML 3ML SC SCH ×2 (09:37→20:59)
[2017-05-31] MEDS ORDERED: DEXTROSE 50% 50 ML SYR IV PRN (10:15)
[2017-05-31] MEDS ORDERED: GLUCOSE 10 TABS/TUBE PO PRN (10:15)
[2017-05-31] MEDS ORDERED: GLUCAGON FOR INJ 1 MG VIAL SQ PRN (10:15)
[2017-05-31] MEDS ORDERED: GLUCOSE 40% GEL 15 GM TUBE PO PRN (10:15)
--- NOTE | 2017-05-31 10:21 | Pharmacy Progress Note ---
Glycemic Control Progress Note Date of Service May 31, 2017. Scope Glycemic Pharmacist consulted for glycemic control to write orders per [facility] inpatient glycemic control protocol. Objective Accuchecks BSG (last 24hrs): Test 05/30/17 12:00 05/30/17 16:58 05/30/17 20:50 05/30/17 23:49 Bedside Glucose 289 mg/dl (70-90) 196 mg/dl (70-90) 364 mg/dl (70-90) 273 mg/dl (70-90) Test 05/31/17 04:05 05/31/17 05:02 05/31/17 05:24 05/31/17 08:14 Bedside Glucose 74 mg/dl (70-90) 116 mg/dl (70-90) 198 mg/dl (70-90) Random Glucose 108 mg/dl (70-99) HbA1c: Test 05/30/17 06:56 Hemoglobin A1c 9.4 % (4.5-5.6) H Recent Pertinent Medications The patient is currently receiving: * Basal insulin: Lantus 14-16 units every 12 hours (Lantus 14 units if blood sugar less than 180 mg/dL and Lantus 16 units if blood sugar 180 mg/dL or greater) * Correctional Insulin: Novolog Correction per scale ACHS Goal Range: Low 110 mg/dL - High 140 mg/dL Correction Factor: 20 mg/dL/unit * Prandial insulin: Per carb ratio of 1 unit per 8 grams CHO consumed Outpatient Anti-Diabetic Meds Levemir 14 units twice daily Novolog CF of 70 for blood sugar over 130 mg/dL and CR of 15 (max of 15 units) Assessment & Plan ASSESSMENT: * See progress note from 05/29/17 for more background info, in short: * Pt receiving SQ basal bolus insulin regimen for hyperglycemia secondary to baseline DM (outpatient regimen on hold),stress/infection (daptomycin and aztreonam for infected foot infection). * Patient is currently receiving an average of 72 units of insulin per day * 30 units of basal insulin * 42 units of prandial/correctional insulin * BSGs ranging 138 - 364 mg/dl over the past 24hrs * Changes needed to insulin regimen: * AM Fasting BSG = 198 mg/dl. This is in slightly above goal range for patient based on inpatient targets and co-morbidities. Patient's blood sugars were very labile last night. The patient has a history of snacking while here and the nurse indicated that she thought the patient was snacking. Will increase scale slightly due to illness. * Post-prandial BSGs fluctuate greatly. It appears, however, that the patient requires a tighter carbohydrate ratio - will tighten slightly. Add 0200 accucheck with looser correction factor. * Total daily dose = 50-70 units. Currently- patient is receiving more insulin than previous admission. This is most likely due to the infection. Will monitor closely. PLAN FOR INPATIENT GLYCEMIC CONTROL: * INCREASING Lantus to 16-18 units SQ BID (Lantus 16 units if blood sugar less than 180 mg/dL and 18 units if blood sugar 180 mg/dL or greater) * Continuing correction factor of 20 mg/dl/unit * TIGHTENING carb ratio to 1 unit per 7 grams CHO consumed * Continuing goal range to Low 110 mg/dL - High 140 mg/dL RECOMMENDATIONS FOR DISCHARGE: * Patient's HbA1C is elevated - may be secondary to infection. Monitor closely as an outpatient and titrate insulin to goal range. Thank you.
[2017-05-31] MEDS: AMPHETAMINE ASP/SULF/DEXTRAMPH 10 MG TAB PO SCH (12:39)
[2017-05-31 15:00] VITALS: BP 125/72; PULSE 80; TEMP 36.6; O2SAT 96
--- NOTE | 2017-05-31 15:40 | Progress Note ---
Internal Med Progress Note Date of Service: May 31, 2017. Provider Documentation: SUBJECTIVE: resting comfortably no pain no fevers ok for picc line want to go home OBJECTIVE: Vital Signs-as noted below Exam: General-alert and awake. not in distress ENT-normal hearing Neck-no neck masses supple Lungs-cta b/l no wheezing or crackles Heart-s1 and s2 heard regular rate and rhythm no murmurs Abdomen-soft bowel sounds present non tender no distension Extremities-no erythema draining pressure ulcer on the right heel and right big toe-in dressing Neuro-alert and awake moves extremities Lab data as noted below. ASSESSMENT & PLAN: This is a 52-year-old female who presents with non-healing foot ulcer. 1. Nonhealing right foot ulcer. Right heel pressure ulcer is stage III to IV, was there before and the right first toe ulcer is new, foul smelling drainage, possible osteomyelitis on x-ray of the right first toe. THE PATIENT IS ALLERGIC TO MULTIPLE ANTIBIOTICS. on iv daptomycin and azactum ID and wound care ion board cx growing pseudomonas,.serratia marcescens,alpha strep not enterococcus MRI conforms osteomyelitis plan for picc line abx as per ID, 2. History of right-sided heart failure, diastolic dysfunction, chronic, currently stable. Continue home Lasix.stable. 3. Coronary artery disease status post coronary artery bypass grafting. Continue aspirin, beta kathy. Not on statin.stable. 4. History of bipolar and attention deficit disorder, on Trintellix, Ativan and Adderall.stable. 5. Acute renal failure and chronic kidney disease stage III, baseline creatinine around 1.8, presented with creatinine of 2.3. cr 2.2 today.We will follow the labs. 6. History of diabetes. Continue home Lantus plus insulin sliding scale. HbA1c levels 9.4. appreciate pharmacy inputs 7. History of gastroesophageal reflux disease. Continue proton pump inhibitor and Zantac. 8. History of hypertension, on metoprolol. We will follow the blood pressure. 9. History of constipation, on linzess.. 10. History of anemia from chronic kidney disease. We will follow the labs. 11. History of gastroparesis, on Reglan. 12. History of obstructive sleep apnea, on CPAP. 13. Deep venous thrombosis prophylaxis. Heparin subQ DISPOSITION to be determined pt/ot social service for d/c planning Vital Signs: Date Time Temp Pulse Resp B/P (MAP) Pulse Ox O2 Delivery O2 Flow Rate FiO2 05/31/17 08:00 Room Air 05/31/17 07:30 36.6 05/31/17 06:56 35.8 87 16 108/43 (64) 95 Room Air 05/30/17 23:45 36.7 88 16 149/72 (97) 95 Room Air 05/30/17 23:15 Room Air CPAP Lab Results: Results Past 24 Hours Test 05/30/17 16:58 05/30/17 20:50 05/30/17 23:49 05/31/17 04:05 Range/Units Bedside Glucose 196 364 273 74 70-90 mg/dl Test 05/31/17 05:02 05/31/17 05:24 05/31/17 08:14 05/31/17 12:15 Range/Units Bedside Glucose 116 198 231 70-90 mg/dl White Blood Count 6.98 4.8-10.8 K/uL Red Blood Count 3.53 4.2-5.4 M/uL Hemoglobin 10.6 12.0-16.0 g/dL Hematocrit 31.6 37-47 % Mean Corpuscular Volume 89.5 80-100 fL Mean Corpuscular Hemoglobin 30.0 25-34 pg Mean Corpuscular Hemoglobin Concent 33.5 32-36 g/dl Platelet Count 281 130-400 K/uL Mean Platelet Volume 9.2 7.4-10.4 fL Neutrophils (%) (Auto) 54.2 % Lymphocytes (%) (Auto) 32.5 % Monocytes (%) (Auto) 8.2 % Eosinophils (%) (Auto) 4.0 % Basophils (%) (Auto) 0.7 % Neutrophils # (Auto) 3.78 1.4-6.5 K/uL Lymphocytes # (Auto) 2.27 1.2-3.4 K/uL Monocytes # (Auto) 0.57 0.11-0.59 K/uL Eosinophils # (Auto) 0.28 0-0.5 K/uL Basophils # (Auto) 0.05 0-0.2 K/uL RDW Standard Deviation 39.9 36.4-46.3 fL RDW Coefficient of Variation 12.4 11.5-14.5 % Immature Granulocyte % (Auto) 0.4 % Immature Granulocyte # (Auto) 0.03 0.00-0.02 K/uL Sodium Level 141 136-145 mmol/L Potassium Level 4.1 3.5-5.1 mmol/L Chloride Level 111 98-107 mmol/L Carbon Dioxide Level 20 21-32 mmol/L Anion Gap 10.0 3-11 mmol/L Blood Urea Nitrogen 65 7-18 mg/dl Creatinine 2.20 0.60-1.20 mg/dl Est Creatinine Clear Calc Drug Dose 32.5 ml/min Estimated GFR () 28.7 Estimated GFR (Non- 24.8 BUN/Creatinine Ratio 29.4 10-20 Random Glucose 108 70-99 mg/dl Calcium Level 8.9 8.5-10.1 mg/dl Magnesium Level 2.0 1.8-2.4 mg/dl Total Creatine Kinase 68 26-192 U/L
--- NOTE | 2017-05-31 16:51 | Infectious Disease Progress Nt ---
Progress Note Date of Service May 31, 2017. Subjective Pt evaluation today including: conversation w/ patient, physical exam, chart review, lab review, review of studies, conversation w/ beverage sales consultant, review of inpatient medication list patient offering no new complaints today. Remains afebrile. Cultures growing Pseudomonas, Serratia, and Streptococcus. All Other Systems: Reviewed and Negative Medications Current Inpatient Medications Medications (Trade) Dose Ordered Sig/Kike Route Start Time Stop Time Status Last Admin Dose Admin Heparin Sodium (Porcine) (Heparin Sq 5000 Unit/0.5ml) 5,000 unit Q8 SQ 05/29/17 22:00 06/28/17 21:59 Acetaminophen (Tylenol Tab) 650 mg Q4H PRN PO 05/29/17 18:30 06/28/17 18:29 Al Hydrox/Mg Hydrox/Simethicone (Maalox Max Susp) 15 ml Q4H PRN PO 05/29/17 18:30 06/28/17 18:29 Magnesium Hydroxide (Milk Of Magnesia Susp) 30 ml Q6H PRN PO 05/29/17 18:30 06/28/17 18:29 Polyethylene (Miralax Powder Packet) 17 gm DAILY PRN PO 05/29/17 18:30 06/28/17 18:29 Ondansetron HCl (Zofran Inj) 4 mg Q6H PRN IV 05/29/17 18:30 06/28/17 18:29 Daptomycin 500 mg/ Sodium Chloride 60 ml @ 100 mls/hr Q24H IV 05/29/17 22:00 07/10/17 21:59 05/30/17 21:39 100 MLS/HR Aspirin (Ecotrin Tab) 162 mg HS PO 05/29/17 21:00 06/28/17 20:59 05/30/17 21:35 162 MG Loratadine (Claritin Tab) 10 mg QAM PO 05/30/17 09:00 06/29/17 08:59 05/31/17 09:28 10 MG Lorazepam (Ativan Tab) 1 mg HS PO 05/29/17 21:00 06/28/17 20:59 05/30/17 21:39 1 MG Metoclopramide HCl (Reglan Tab) 10 mg QID PO 05/29/17 21:00 06/28/17 20:59 05/31/17 12:39 10 MG Ondansetron HCl (Zofran Tab) 8 mg TID PO 05/29/17 21:00 06/28/17 20:59 05/31/17 13:57 8 MG Pantoprazole Sodium (Protonix Tab) 40 mg BID PO 05/29/17 21:00 06/28/17 20:59 05/31/17 09:28 40 MG Ranitidine HCl (zANTac TAB) 150 mg BID PO 05/29/17 21:00 06/28/17 20:59 05/31/17 09:28 150 MG Travoprost (Travatan Z) 1 drops HS OP 05/29/17 21:00 06/28/17 20:59 05/30/17 21:43 1 DROPS Cholecalciferol (Vitamin D Tab) 5,000 inter.unit DAILY PO 05/30/17 09:00 06/29/17 08:59 05/31/17 09:27 5,000 INTER.UNIT Miscellaneous Information (Order Awaiting Action) 1 dominique QS N/A 05/30/17 00:00 06/29/17 00:00 Insulin Aspart (novoLOG ASPART) SLIDING SCALE G... ACHS SC 05/29/17 21:00 06/28/17 20:59 05/31/17 12:48 13 UNITS Albuterol (Ventolin Hfa Inhaler) 2 puffs Q4H PRN INH 05/29/17 18:45 06/28/17 18:44 Bisacodyl (Dulcolax Tab) 10 mg HS PO 05/29/17 21:00 06/28/17 20:59 05/30/17 23:59 10 MG Furosemide (Lasix Tab) 40 mg DAILY PO 05/30/17 09:00 06/29/17 08:59 05/31/17 09:28 40 MG Metoprolol Tartrate (Lopressor Tab) 25 mg BID PO 05/29/17 21:00 06/28/17 20:59 05/31/17 09:27 25 MG Amphetamine Aspartate/ Amphetam Sulf (Amphetamine Aspartate/Amph Sulf/Dextramphet) 10 mg QDL PO 05/30/17 12:30 06/13/17 12:29 05/31/17 12:39 10 MG Miscellaneous Information (Consult Glycemic Management Pharmacy) 1 ea UD PRN N/A 05/29/17 19:02 06/28/17 19:01 Daptomycin (Consult) 1 ea UD PRN N/A 05/29/17 21:45 06/28/17 21:44 Linaclotide (Linzess) 145 mcg QAM PO 05/30/17 09:00 06/29/17 08:59 Non-Formulary Medication (Non-Formulary Patient'S Own Med) 1 ea DAILY PO 05/30/17 09:00 06/29/17 08:59 05/31/17 09:29 1 EA Vortioxetine (Trintellix) 20 mg DAILY PO 05/30/17 09:00 06/29/17 08:59 05/31/17 09:28 20 MG Aztreonam 2000 mg/ Dextrose 110 ml @ 100 mls/hr Q8H IV 05/30/17 20:00 07/11/17 19:59 05/31/17 12:25 100 MLS/HR Aztreonam (Consult) 1 ea UD PRN N/A 05/30/17 12:45 06/29/17 12:44 Amphetamine/ Dextroamphetamine (Adderall Xr 30 Mg) 30 mg BID@0800,1200 PO 05/30/17 14:30 06/29/17 14:29 Insulin Detemir (Levemir Flexpen/ FlexTouch) see protocol text BID SC 05/30/17 21:00 06/29/17 20:59 05/31/17 09:37 16 UNITS Non-Formulary Medication (Patient'S Own Controlled Med) 1 ea BID@0800,1200 PO 05/30/17 14:30 06/13/17 14:29 05/31/17 12:00 1 EA Glucose (Glucose 40% Gel) 15-30 GRAMS 15 GRAMS... UD PRN PO 05/31/17 10:15 06/30/17 10:14 Glucose (Glucose Chew Tab) 4-8 Tablets 4 Tabl... UD PRN PO 05/31/17 10:15 06/30/17 10:14 Dextrose (Dextrose 50% 50ML Syringe) 25-50ML OF 50% DW IV FOR... UD PRN IV 05/31/17 10:15 06/30/17 10:14 Glucagon (Glucagon Inj) 1 mg UD PRN SQ 05/31/17 10:15 06/30/17 10:14 Insulin Aspart (novoLOG ASPART) SLIDING SCALE G... TODAY@0200 RI 06/01/17 02:00 06/01/17 02:01 Objective Vital Signs Date Time Temp Pulse Resp B/P (MAP) Pulse Ox O2 Delivery O2 Flow Rate FiO2 05/31/17 15:00 36.6 80 18 125/72 (89) 96 Room Air 05/31/17 08:00 Room Air 05/31/17 07:30 36.6 05/31/17 06:56 35.8 87 16 108/43 (64) 95 Room Air 05/30/17 23:45 36.7 88 16 149/72 (97) 95 Room Air 05/30/17 23:15 Room Air CPAP Physical Exam General Appearance: WD/WN, no apparent distress Eyes: normal inspection, EOMI, sclerae normal ENT: normal ENT inspection, pharynx normal Neck: supple, no adenopathy, trachea midline Respiratory/Chest: lungs clear, normal breath sounds, no respiratory distress Cardiovascular: regular rate, rhythm, no gallop, no murmur Abdomen: normal bowel sounds, non tender, soft, no organomegaly Extremities: non-tender, no calf tenderness Neurologic/Psychiatric: alert, oriented x 3 Skin: normal color, no rash, + pertinent finding ( Eschar left great toe, left heel ulcer) Laboratory Results RUN DATE: 05/31/17 [facility] LAB PAGE 1 RUN TIME: 1413 Specimen Inquiry PATIENT: GRECIA ROSADO LOC: [facility]ERT U # : [id number] AGE/SX: 52/F ROOM: [facility] REG : 05/29/[address]: Yonas Mak MD : [id number] BED: 2 DIS : STATUS: ADM IN TLOC: SPEC #: [id number] BRENDA: 05/29/17 STATUS: RES REQ #: [id number] RECD: 05/29/[address]: Britney Saldana PA SOURCE: DRAIN-SURF ENTR: 05/29/17-[address]: Allan Todd DO SPDESC: TOE R1 Devon Biggs , D.OOscar ORDERED: SURF WND [facility] COMMENTS: Has Specimen Been Obtained/Collected? Y Procedure Result Verified Site GRAM STAIN Final 05/30/17-657 RESULT RARE WBCs SEEN MODERATE GRAM POSITIVE COCCI SURFACE WOUND CULTURE Preliminary 05/31/17-7991 Organism 1 PSEUDOMONAS AERUGINOSA QUANITY MANY SENS SENSITIVITY TO FOLLOW +MIXWOUND PLUS LOW COUNTS OF PROBABLE SKIN ZOE Organism 2 GRAM NEGATIVE BACILLI#2 QUANITY FEW SENS SENSITIVITY TO FOLLOW 1. PSEUDOMONAS AERUGINOSA Target Route Dose RX AB Cost M.I.C. IQ ------ ----- ------ -- ------ -------- - ------ CEFTAZIDIME S 8 CEFEPIME S <=4 IMIPENEM S <=1 AZTREONAM S <=4 GENTAMICIN S <=4 TOBRAMYCIN S <=4 AMIKACIN S <=16 CIPROFLOXACIN S <=1 LEVOFLOXACIN S <=2 PIP/TAZO S <=16 S = SENSITIVE I = INTERMEDIATE R = RESISTANT END OF REPORT Last 24 Hours Test 05/30/17 16:58 05/30/17 20:50 05/30/17 23:49 05/31/17 04:05 Bedside Glucose 196 mg/dl 364 mg/dl 273 mg/dl 74 mg/dl Test 05/31/17 05:02 05/31/17 05:24 05/31/17 08:14 05/31/17 12:15 Bedside Glucose 116 mg/dl 198 mg/dl 231 mg/dl White Blood Count 6.98 K/uL Red Blood Count 3.53 M/uL Hemoglobin 10.6 g/dL Hematocrit 31.6 % Mean Corpuscular Volume 89.5 fL Mean Corpuscular Hemoglobin 30.0 pg Mean Corpuscular Hemoglobin Concent 33.5 g/dl Platelet Count 281 K/uL Mean Platelet Volume 9.2 fL Neutrophils (%) (Auto) 54.2 % Lymphocytes (%) (Auto) 32.5 % Monocytes (%) (Auto) 8.2 % Eosinophils (%) (Auto) 4.0 % Basophils (%) (Auto) 0.7 % Neutrophils # (Auto) 3.78 K/uL Lymphocytes # (Auto) 2.27 K/uL Monocytes # (Auto) 0.57 K/uL Eosinophils # (Auto) 0.28 K/uL Basophils # (Auto) 0.05 K/uL RDW Standard Deviation 39.9 fL RDW Coefficient of Variation 12.4 % Immature Granulocyte % (Auto) 0.4 % Immature Granulocyte # (Auto) 0.03 K/uL Sodium Level 141 mmol/L Potassium Level 4.1 mmol/L Chloride Level 111 mmol/L Carbon Dioxide Level 20 mmol/L Anion Gap 10.0 mmol/L Blood Urea Nitrogen 65 mg/dl Creatinine 2.20 mg/dl Est Creatinine Clear Calc Drug Dose 32.5 ml/min Estimated GFR () 28.7 Estimated GFR (Non- 24.8 BUN/Creatinine Ratio 29.4 Random Glucose 108 mg/dl Calcium Level 8.9 mg/dl Magnesium Level 2.0 mg/dl Total Creatine Kinase 68 U/L Assessment and Plan Probable osteomyelitis of the right great toe in a diabetic female with severe neuropathy. Cultures positive for Pseudomonas, Serratia, and Streptococcus. Recommend combination of IV daptomycin and oral ciprofloxacin, adjusted for renal insufficiency. Will discuss with all involved. Will follow.
[2017-05-31] MEDS: TRAVOPROST Z 0.004% OPH SOLN 2.5 ML BTL OP SCH (20:46)
[2017-05-31] MEDS: ASPIRIN 81 MG ECTAB PO SCH (20:47)
[2017-05-31] MEDS: BISACODYL 5 MG TABEC PO SCH (21:00)
[2017-05-31] MEDS: LORAZEPAM 1 MG TAB PO SCH (21:00)
[2017-05-31] MEDS: DAPTOmycin IV 500 MG in SODIUM CHLORIDE 0.9% 50ML 50 ML IV SCH (22:22)
[2017-05-31 23:48] VITALS: BP 147/74; PULSE 80; TEMP 36.6; O2SAT 95
[2017-06-01] MEDS ORDERED: INSULIN ASPART 100 UNITS/ML 3 ML PEN SC SCH ×2 (02:00→05:00)
[2017-06-01] MEDS: AZTREONAM IV 2,000 MG in DEXTROSE 5% 100ML 100 ML IV SCH ×2 (04:50→12:19)
[2017-06-01] MEDS: HEPARIN SOD 5000 UNIT/0.5 ML CARP SQ SCH ×3 (04:58→21:34)
[2017-06-01 06:31] LABS: BASO % 0.5 %; BASO ABS # 0.04 K/uL (0-0.2); COMPLETE YES; EOS % 4.1 %; HEMATOCRIT 31.6 % (37-47); IG% 0.1 %; LYMPH % 25.5 %; LYMPH ABS # 1.94 K/uL (1.2-3.4); MEAN CELL VOLUME 90.3 fL (80-100); MEAN PLATELET VOLUME 9.1 fL (7.4-10.4); MONO % 9.3 %; NEUT % 60.5 %; PLATELET COUNT 284 K/uL (130-400)
[2017-06-01 06:56] LABS: BUN/CREATININE RATIO 32.7 (10-20); CALCIUM 8.8 mg/dl (8.5-10.1); CREATININE 2.5 mg/dl (0.60-1.20); MAGNESIUM 2.2 mg/dl (1.8-2.4)
[2017-06-01 06:57] VITALS: BP 146/81; PULSE 80; TEMP 36.9; O2SAT 96
[2017-06-01] MEDS: AMPHETAMINE-DEXTROAMPHETAMINE 30 MG CAP PO SCH ×2 (07:44→12:19)
[2017-06-01] MEDS: PATADAY~ORDER AWAITING ACTION SCH ×3 (07:44→23:12)
[2017-06-01] MEDS: ADDERALL 30 MG PO SCH ×2 (07:45→12:22)
[2017-06-01] MEDS: ONDANSETRON 8 MG TAB PO SCH ×3 (08:41→21:22)
[2017-06-01] MEDS: CHOLECALCIFEROL 1000 INTER.UNIT TAB PO SCH (08:41)
[2017-06-01] MEDS: FUROSEMIDE 40 MG TAB PO SCH (08:41)
[2017-06-01] MEDS: LORATADINE 10 MG TAB PO SCH (08:42)
[2017-06-01] MEDS: METOCLOPRAMIDE HCL 10 MG TAB PO SCH ×4 (08:42→21:21)
[2017-06-01] MEDS: RANITIDINE HCL 150 MG TAB PO SCH ×2 (08:42→21:22)
[2017-06-01] MEDS: METOPROLOL TARTRATE 25 MG TAB PO SCH ×2 (08:42→21:19)
[2017-06-01] MEDS: VORTIOXETINE HBR 20 MG PO SCH (08:43)
[2017-06-01] MEDS: LINACLOTIDE 145 MCG CAP PO SCH (08:44)
[2017-06-01] MEDS: NON-FORMULARY PATIENT'S OWN MED PO SCH (08:44)
[2017-06-01] MEDS: INSULIN ASPART 100 UNITS/ML 3 ML PEN SC SCH ×4 (08:49→21:31)
[2017-06-01] MEDS: INSULIN DETEMIR FLEXPEN/FLEX TOUCH 100 UNITS/ML 3ML SC SCH ×2 (08:50→21:32)
[2017-06-01] MEDS: PANTOprazole SOD 40 MG TAB PO SCH ×2 (08:53→21:20)
--- NOTE | 2017-06-01 11:11 | Pharmacy Progress Note ---
Glycemic Control Progress Note Date of Service Jun 01, 2017. Scope Glycemic Pharmacist consulted for glycemic control to write orders per [facility] inpatient glycemic control protocol. Objective Accuchecks BSG (last 24hrs): Test 05/31/17 12:15 05/31/17 17:24 05/31/17 20:06 06/01/17 01:54 Bedside Glucose 231 mg/dl (70-90) 117 mg/dl (70-90) 242 mg/dl (70-90) 369 mg/dl (70-90) Test 06/01/17 04:51 06/01/17 05:53 06/01/17 08:02 Bedside Glucose 184 mg/dl (70-90) 108 mg/dl (70-90) Random Glucose 157 mg/dl (70-99) HbA1c: Test 05/30/17 06:56 Hemoglobin A1c 9.4 % (4.5-5.6) H Recent Pertinent Medications The patient is currently receiving: * Basal insulin: Levemir every 12 hours: 16 units if BSG less than 180; 18 units if BSG 180 or greater * Correctional Insulin: Novolog Correction per scale ACHS Goal Range: Low [] mg/dL - High [] mg/dL Correction Factor: [] mg/dL/unit * Prandial insulin: Per carb ratio of 1 unit per [] grams CHO consumed * Oral Agents: None Outpatient Anti-Diabetic Meds Levemir 14 units SQ BID Novolog correction factor 70mg/dL/unit for BSG above 130; carb ratio 1 unit per 15grams carbs Assessment & Plan ASSESSMENT: 06/01/17 * Patient's glycemic control has been erratic over the last 24 hours. * Based upon the observed BSGs, she appears to be fairly sensitive to carb intake - leading to quick rises in BSGs post-prandially. However she seems to be sensitive to correctional insulin when administered. The BSG pattern does fit the picture of a type 1 diabetic. * I suspect that the BSG swings could be minimized by reducing the correctional insulin dose and maintaining a higher prandial insulin dose. Will trial this change today and monitor post-prandial results * Basal insulin dose is higher than home dosage - however recent A1c shows less than optimal control (9.4%); 16-18 units per dose does not seem too unreasonable. Fasting BSG 108 this AM w/ 34 units of Levemir on board, however 6 units of correctional insulin were required overnight. PLAN FOR INPATIENT GLYCEMIC CONTROL: * Continuing Levemir SQ BID: 16 units if BSG less than 180; 18 units if BSG 180 or greater * Changing correction factor to 30 mg/dl/unit * Continuing carb ratio of 1 unit per 7 grams CHO consumed * Continuing goal range of Low 110 mg/dL - High 140 mg/dL * Check BSG at 0200 to monitor for hyper- and hypo- glycemic as I feel she is at risk for both given BSG pattern and current insulin doses; cover BSG elevations w/ above parameters if present * Please note that the plan above was derived based on current level of insulin resistance and hospital stress. These recommendations are appropriate for inpatient admission only. Plan of care upon discharge will need to be reassessed to avoid potential outpatient hypo/hyperglycemia. Thank you.
[2017-06-01] MEDS: AMPHETAMINE ASP/SULF/DEXTRAMPH 10 MG TAB PO SCH (12:19)
[2017-06-01 15:00] VITALS: BP 135/77; PULSE 79; TEMP 36.8; O2SAT 96
[2017-06-01] MEDS ORDERED: CIPROFLOXACIN CONSULT ACTIVE PRN ×2 (16:15)
[2017-06-01] MEDS ORDERED: CIPROFLOXACIN 400MG / D5W IV ONE (16:45)
[2017-06-01] MEDS: LACTOBACILLUS ACIDOPHILUS (FLORANEX) TAB PO SCH (18:01)
--- NOTE | 2017-06-01 18:12 | Progress Note ---
Internal Med Progress Note Date of Service: Jun 01, 2017. Provider Documentation: SUBJECTIVE: resting comfortably denies any pain no sob afebrile want to go home OBJECTIVE: Vital Signs-as noted below Exam: General-alert and awake. not in distress ENT-normal hearing Neck-no neck masses supple Lungs-cta b/l no wheezing or crackles Heart-s1 and s2 heard regular rate and rhythm no murmurs Abdomen-soft bowel sounds present non tender no distension Extremities-no erythema draining pressure ulcer on the right heel and right big toe-in dressing Neuro-alert and awake moves extremities Lab data as noted below. ASSESSMENT & PLAN: This is a 52-year-old female who presents with non-healing foot ulcer. 1. Nonhealing right foot ulcer. Right heel pressure ulcer is stage III to IV, was there before and the right first toe ulcer is new, foul smelling drainage, possible osteomyelitis on x-ray of the right first toe. THE PATIENT IS ALLERGIC TO MULTIPLE ANTIBIOTICS. on iv daptomycin and azactum ID and wound care ion board cx growing pseudomonas,.serratia marcescens,alpha strep not enterococcus MRI conforms osteomyelitis s/p picc line ID recommends six weeks of iv daptomycin and po cipro Stable conditions : 2. History of right-sided heart failure, diastolic dysfunction, chronic, currently stable. Continue home Lasix.stable. 3. Coronary artery disease status post coronary artery bypass grafting. Continue aspirin, beta kathy. Not on statin.stable. 4. History of bipolar and attention deficit disorder, on Trintellix, Ativan and Adderall.stable. 5. Acute renal failure and chronic kidney disease stage III, baseline creatinine around 1.8, presented with creatinine of 2.3. cr 2.2 today.We will follow the labs. 6. History of diabetes. Continue home Lantus plus insulin sliding scale. HbA1c levels 9.4. appreciate pharmacy inputs 7. History of gastroesophageal reflux disease. Continue proton pump inhibitor and Zantac. 8. History of hypertension, on metoprolol. We will follow the blood pressure. 9. History of constipation, on linzess.. 10. History of anemia from chronic kidney disease. We will follow the labs. 11. History of gastroparesis, on Reglan. 12. History of obstructive sleep apnea, on CPAP. 13. Deep venous thrombosis prophylaxis. Heparin subQ DISPOSITION possible d/c in am pt/ot social service for d/c planning Vital Signs: Date Time Temp Pulse Resp B/P (MAP) Pulse Ox O2 Delivery O2 Flow Rate FiO2 06/01/17 16:00 Room Air 06/01/17 15:00 36.8 79 20 135/77 (96) 96 Room Air 06/01/17 07:30 Room Air 06/01/17 06:57 36.9 80 16 146/81 (102) 96 Room Air 05/31/17 23:48 36.6 80 16 147/74 (98) 95 Room Air 05/31/17 23:15 Room Air CPAP Lab Results: Results Past 24 Hours Test 05/31/17 20:06 06/01/17 01:54 06/01/17 04:51 06/01/17 05:53 Range/Units Bedside Glucose 242 369 184 70-90 mg/dl White Blood Count 7.60 4.8-10.8 K/uL Red Blood Count 3.50 4.2-5.4 M/uL Hemoglobin 9.8 12.0-16.0 g/dL Hematocrit 31.6 37-47 % Mean Corpuscular Volume 90.3 80-100 fL Mean Corpuscular Hemoglobin 28.0 25-34 pg Mean Corpuscular Hemoglobin Concent 31.0 32-36 g/dl Platelet Count 284 130-400 K/uL Mean Platelet Volume 9.1 7.4-10.4 fL Neutrophils (%) (Auto) 60.5 % Lymphocytes (%) (Auto) 25.5 % Monocytes (%) (Auto) 9.3 % Eosinophils (%) (Auto) 4.1 % Basophils (%) (Auto) 0.5 % Neutrophils # (Auto) 4.59 1.4-6.5 K/uL Lymphocytes # (Auto) 1.94 1.2-3.4 K/uL Monocytes # (Auto) 0.71 0.11-0.59 K/uL Eosinophils # (Auto) 0.31 0-0.5 K/uL Basophils # (Auto) 0.04 0-0.2 K/uL RDW Standard Deviation 41.1 36.4-46.3 fL RDW Coefficient of Variation 12.5 11.5-14.5 % Immature Granulocyte % (Auto) 0.1 % Immature Granulocyte # (Auto) 0.01 0.00-0.02 K/uL Sodium Level 138 136-145 mmol/L Potassium Level 4.0 3.5-5.1 mmol/L Chloride Level 108 98-107 mmol/L Carbon Dioxide Level 22 21-32 mmol/L Anion Gap 8.0 3-11 mmol/L Blood Urea Nitrogen 82 7-18 mg/dl Creatinine 2.50 0.60-1.20 mg/dl Est Creatinine Clear Calc Drug Dose 28.6 ml/min Estimated GFR () 24.6 Estimated GFR (Non- 21.2 BUN/Creatinine Ratio 32.7 10-20 Random Glucose 157 70-99 mg/dl Calcium Level 8.8 8.5-10.1 mg/dl Magnesium Level 2.2 1.8-2.4 mg/dl Test 06/01/17 08:02 06/01/17 11:59 06/01/17 17:02 Range/Units Bedside Glucose 108 136 168 70-90 mg/dl
[2017-06-01] MEDS: BISACODYL 5 MG TABEC PO SCH (21:20)
[2017-06-01] MEDS: ASPIRIN 81 MG ECTAB PO SCH (21:20)
[2017-06-01] MEDS: LORAZEPAM 1 MG TAB PO SCH (21:21)
[2017-06-01] MEDS: TRAVOPROST Z 0.004% OPH SOLN 2.5 ML BTL OP SCH (21:22)
[2017-06-01 23:05] VITALS: BP 137/76; PULSE 79; TEMP 36.6; O2SAT 97
[2017-06-02] MEDS: INSULIN ASPART 100 UNITS/ML 3 ML PEN SC SCH ×4 (02:00→18:22)
[2017-06-02] MEDS: HEPARIN SOD 5000 UNIT/0.5 ML CARP SQ SCH ×3 (06:00→21:00)
[2017-06-02] MEDS: CIPROFLOXACIN 200MG / D5W IV SCH ×2 (06:06→17:45)
[2017-06-02 06:35] LABS: CREATININE 2.9 mg/dl (0.60-1.20)
[2017-06-02 07:34] VITALS: BP 134/74; PULSE 78; TEMP 36.7; O2SAT 96
[2017-06-02] MEDS: ADDERALL 30 MG PO SCH ×2 (08:00→12:00)
[2017-06-02] MEDS: PATADAY~ORDER AWAITING ACTION SCH ×3 (08:00→23:15)
[2017-06-02] MEDS: AMPHETAMINE-DEXTROAMPHETAMINE 30 MG CAP PO SCH ×2 (08:00→12:00)
[2017-06-02] MEDS: LACTOBACILLUS ACIDOPHILUS (FLORANEX) TAB PO SCH ×3 (08:25→17:45)
[2017-06-02] MEDS: LORATADINE 10 MG TAB PO SCH (08:26)
[2017-06-02] MEDS: FUROSEMIDE 40 MG TAB PO SCH (08:26)
[2017-06-02] MEDS: LINACLOTIDE 145 MCG CAP PO SCH (08:27)
[2017-06-02] MEDS: NON-FORMULARY PATIENT'S OWN MED PO SCH (08:28)
[2017-06-02] MEDS: METOPROLOL TARTRATE 25 MG TAB PO SCH ×2 (08:28→21:05)
[2017-06-02] MEDS: PANTOprazole SOD 40 MG TAB PO SCH ×2 (08:29→21:05)
[2017-06-02] MEDS: METOCLOPRAMIDE HCL 10 MG TAB PO SCH ×4 (08:29→21:05)
[2017-06-02] MEDS: VORTIOXETINE HBR 20 MG PO SCH (08:30)
[2017-06-02] MEDS: CHOLECALCIFEROL 1000 INTER.UNIT TAB PO SCH (08:30)
[2017-06-02] MEDS: RANITIDINE HCL 150 MG TAB PO SCH ×2 (08:31→21:05)
[2017-06-02] MEDS: ONDANSETRON 8 MG TAB PO SCH ×3 (08:32→21:05)
[2017-06-02] MEDS: INSULIN DETEMIR FLEXPEN/FLEX TOUCH 100 UNITS/ML 3ML SC SCH ×2 (08:42→21:20)
[2017-06-02] MEDS: SODIUM CHLORIDE 0.9% 1000ML 1,000 ML IV SCH ×2 (12:00→16:15)
[2017-06-02] MEDS: AMPHETAMINE ASP/SULF/DEXTRAMPH 10 MG TAB PO SCH (12:49)
--- NOTE | 2017-06-02 13:45 | Pharmacy Progress Note ---
Glycemic Control Progress Note Date of Service Jun 02, 2017. Scope Glycemic Pharmacist consulted for glycemic control to write orders per [facility] inpatient glycemic control protocol. Objective Accuchecks BSG (last 24hrs): Test 06/01/17 17:02 06/01/17 21:01 06/02/17 02:27 06/02/17 08:04 Bedside Glucose 168 mg/dl (70-90) 218 mg/dl (70-90) 167 mg/dl (70-90) 90 mg/dl (70-90) Test 06/02/17 12:06 Bedside Glucose 213 mg/dl (70-90) HbA1c: Test 05/30/17 06:56 Hemoglobin A1c 9.4 % (4.5-5.6) H Recent Pertinent Medications The patient is currently receiving: * Basal insulin: Levemir every 12 hours: 16 units if BSG less than 180; 18 units if BSG 180 or greater * Correctional Insulin: Novolog Correction per scale ACHS Goal Range: Low 110 mg/dL - High 140 mg/dL Correction Factor: 30 mg/dL/unit with meals, 40mg/dL at bedtime and 0200 * Prandial insulin: Per carb ratio of 1 unit per 7 grams CHO consumed * Oral Agents: None Outpatient Anti-Diabetic Meds Levemir 14 units SQ BID Novolog correction factor 70mg/dL/unit for BSG above 130; carb ratio 1 unit per 15grams carbs Assessment & Plan ASSESSMENT: 06/01/17 * Patient's glycemic control has been erratic over the last 24 hours. * Based upon the observed BSGs, she appears to be fairly sensitive to carb intake - leading to quick rises in BSGs post-prandially. However she seems to be sensitive to correctional insulin when administered. The BSG pattern does fit the picture of a type 1 diabetic. * I suspect that the BSG swings could be minimized by reducing the correctional insulin dose and maintaining a higher prandial insulin dose. Will trial this change today and monitor post-prandial results * Basal insulin dose is higher than home dosage - however recent A1c shows less than optimal control (9.4%); 16-18 units per dose does not seem too unreasonable. Fasting BSG 108 this AM w/ 34 units of Levemir on board, however 6 units of correctional insulin were required overnight. 06/02/17 * BSGs have ranged 90-218 over the last 24 hrs. Most BSGs have been at goal. * Fasting BSG 90 this AM w/ 36 units of basal insulin on board - plan to continue w/ current basal orders as pt did receive 2 units extra Levemir w/ AM dose yesterday * Post-prandial BSGs controlled on 2 of 3 BSG checks yesterday. Pre-lunch BSG elevated today however this may have been secondary to fasting BSG of 90 being below goal range leading to a reduced prandial dose w/ breakfast. Plan is to continue same CR and CF for next 24 hrs and f/u tomorrow. PLAN FOR INPATIENT GLYCEMIC CONTROL: * Continuing Levemir SQ BID: 16 units if BSG less than 180; 18 units if BSG 180 or greater * Continue correction factor of 30 mg/dl/unit w/ meals, 40mg/dL unit at bedtime. * Continue carb ratio of 1 unit per 7 grams CHO consumed * Continuing goal range of Low 110 mg/dL - High 140 mg/dL * Stop checking BSG at 0200 as glycemic control improving * Please note that the plan above was derived based on current level of insulin resistance and hospital stress. These recommendations are appropriate for inpatient admission only. Plan of care upon discharge will need to be reassessed to avoid potential outpatient hypo/hyperglycemia. Thank you.
[2017-06-02 15:10] VITALS: BP 122/68; PULSE 87; TEMP 36.8; O2SAT 94; O2SAT 99
--- NOTE | 2017-06-02 17:57 | Progress Note ---
Internal Med Progress Note Date of Service: Jun 02, 2017. Provider Documentation: SUBJECTIVE: resting comfortably no pain afebrile no diarrhea no sob OBJECTIVE: Vital Signs-as noted below Exam: General-alert and awake. not in distress ENT-normal hearing Neck-no neck masses supple Lungs-cta b/l no wheezing or crackles Heart-s1 and s2 heard regular rate and rhythm no murmurs Abdomen-soft bowel sounds present non tender no distension Extremities-no erythema draining pressure ulcer on the right heel and right big toe-in dressing Neuro-alert and awake moves extremities Lab data as noted below. ASSESSMENT & PLAN: This is a 52-year-old female who presents with non-healing foot ulcer. 1. Nonhealing right foot ulcer. Right heel pressure ulcer is stage III to IV, was there before and the right first toe ulcer is new, foul smelling drainage, possible osteomyelitis on x-ray of the right first toe. THE PATIENT IS ALLERGIC TO MULTIPLE ANTIBIOTICS. on iv daptomycin and azactum ID and wound care ion board cx growing pseudomonas,.serratia marcescens,alpha strep not enterococcus MRI conforms osteomyelitis s/p picc line ID recommends six weeks of iv daptomycin and po cipro 2. Arf on ckd stage 3 baseline cr 1.8 cr 2.9 today- from dapto? holding lasix gentle fluids nephrology consult in am as per patient request. 3. History of right-sided heart failure, diastolic dysfunction, chronic, currently stable. holding lasix and on gentle fluids. close monitor for volume overload. 4. Coronary artery disease status post coronary artery bypass grafting. Continue aspirin, beta kathy. Not on statin.stable. 5. History of bipolar and attention deficit disorder, on Trintellix, Ativan and Adderall.stable. 6. History of diabetes. Continue home Lantus plus insulin sliding scale. HbA1c levels 9.4. appreciate pharmacy inputs 7. History of gastroesophageal reflux disease. Continue proton pump inhibitor and Zantac. 8. History of hypertension, on metoprolol. We will follow the blood pressure. 9. History of constipation, on linzess.. 10. History of anemia from chronic kidney disease. We will follow the labs. 11. History of gastroparesis, on Reglan. 12. History of obstructive sleep apnea, on CPAP. 13. Deep venous thrombosis prophylaxis. Heparin subQ DISPOSITION possible d/c in 1-2 days pt/ot social service for d/c planning Vital Signs: Date Time Temp Pulse Resp B/P (MAP) Pulse Ox O2 Delivery O2 Flow Rate FiO2 06/02/17 15:10 36.8 87 20 122/68 (86) 94 Room Air 06/02/17 07:34 36.7 78 16 134/74 (94) 96 Room Air 06/02/17 07:30 Room Air 06/02/17 00:00 Room Air 06/01/17 23:05 36.6 79 16 137/76 (96) 97 Room Air Lab Results: Results Past 24 Hours Test 06/01/17 21:01 06/02/17 02:27 06/02/17 05:38 06/02/17 08:04 Range/Units Bedside Glucose 218 167 90 70-90 mg/dl Creatinine 2.90 0.60-1.20 mg/dl Est Creatinine Clear Calc Drug Dose 24.6 ml/min Estimated GFR () 20.6 Estimated GFR (Non- 17.7 Test 06/02/17 12:06 06/02/17 17:08 Range/Units Bedside Glucose 213 259 70-90 mg/dl
[2017-06-02] MEDS ORDERED: DAPTOmycin IV 500 MG in SODIUM CHLORIDE 0.9% 50ML 50 ML IV SCH (20:00)
[2017-06-02] MEDS ORDERED: INSULIN ASPART 100 UNITS/ML 3 ML PEN SC SCH (21:00)
[2017-06-02] MEDS: LORAZEPAM 1 MG TAB PO SCH (21:05)
[2017-06-02] MEDS: TRAVOPROST Z 0.004% OPH SOLN 2.5 ML BTL OP SCH (21:05)
[2017-06-02] MEDS: BISACODYL 5 MG TABEC PO SCH (21:05)
[2017-06-02] MEDS: ASPIRIN 81 MG ECTAB PO SCH (21:05)
[2017-06-02 22:55] VITALS: BP 148/77; PULSE 79; TEMP 36.8; O2SAT 97
[2017-06-03] MEDS: CIPROFLOXACIN 200MG / D5W IV SCH (05:37)
[2017-06-03] MEDS: HEPARIN SOD 5000 UNIT/0.5 ML CARP SQ SCH ×3 (05:41→20:41)
[2017-06-03 07:11] VITALS: BP 137/68; PULSE 79; TEMP 36.7; O2SAT 97
[2017-06-03] MEDS: ADDERALL 30 MG PO SCH ×2 (08:00→12:00)
[2017-06-03] MEDS: PATADAY~ORDER AWAITING ACTION SCH ×3 (08:00→23:09)
[2017-06-03] MEDS: AMPHETAMINE-DEXTROAMPHETAMINE 30 MG CAP PO SCH ×2 (08:00→12:13)
[2017-06-03 08:12] LABS: BASO % 0.7 %; BASO ABS # 0.04 K/uL (0-0.2); COMPLETE YES; HEMATOCRIT 30.4 % (37-47); IG% 0.5 %; LYMPH % 23.6 %; LYMPH ABS # 1.41 K/uL (1.2-3.4); MEAN CELL VOLUME 88.6 fL (80-100); MEAN CORPUSCULAR HEMOGLOBIN 28.9 pg (25-34); MEAN CORPUSCULAR HGB CONC 32.6 g/dl (32-36); MONO % 9.9 %; NEUT % 60.3 %; PLATELET COUNT 264 K/uL (130-400); RED BLOOD COUNT 3.43 M/uL (4.2-5.4); WHITE BLOOD COUNT 5.98 K/uL (4.8-10.8)
[2017-06-03] MEDS: SODIUM CHLORIDE 0.9% 1000ML 1,000 ML IV SCH (08:17)
[2017-06-03] MEDS: LACTOBACILLUS ACIDOPHILUS (FLORANEX) TAB PO SCH ×3 (08:19→17:46)
[2017-06-03] MEDS: INSULIN ASPART 100 UNITS/ML 3 ML PEN SC SCH ×4 (08:26→20:40)
[2017-06-03 08:38] LABS: BUN/CREATININE RATIO 26.2 (10-20); CALCIUM 9.4 mg/dl (8.5-10.1); CREATININE 3.4 mg/dl (0.60-1.20); POTASSIUM 4.3 mmol/L (3.5-5.1)
[2017-06-03 08:40] LABS: ALB/GLOB RATIO 0.9 (0.9-2)
[2017-06-03] MEDS: LINACLOTIDE 145 MCG CAP PO SCH (09:07)
[2017-06-03] MEDS: LORATADINE 10 MG TAB PO SCH (09:07)
[2017-06-03] MEDS: METOPROLOL TARTRATE 25 MG TAB PO SCH ×2 (09:09→20:38)
[2017-06-03] MEDS: METOCLOPRAMIDE HCL 10 MG TAB PO SCH ×4 (09:10→20:39)
[2017-06-03] MEDS: NON-FORMULARY PATIENT'S OWN MED PO SCH (09:10)
[2017-06-03] MEDS: PANTOprazole SOD 40 MG TAB PO SCH ×2 (09:10→20:39)
[2017-06-03] MEDS: VORTIOXETINE HBR 20 MG PO SCH (09:11)
[2017-06-03] MEDS: CHOLECALCIFEROL 1000 INTER.UNIT TAB PO SCH (09:11)
[2017-06-03] MEDS: RANITIDINE HCL 150 MG TAB PO SCH ×2 (09:12→20:38)
[2017-06-03] MEDS: ONDANSETRON 8 MG TAB PO SCH ×3 (09:13→20:40)
[2017-06-03] MEDS: INSULIN DETEMIR FLEXPEN/FLEX TOUCH 100 UNITS/ML 3ML SC SCH (09:16)
--- NOTE | 2017-06-03 10:03 | Pharmacy Progress Note ---
Glycemic Control Progress Note Date of Service Jun 03, 2017. Scope Glycemic Pharmacist consulted for glycemic control to write orders per [facility] inpatient glycemic control protocol. Objective Accuchecks BSG (last 24hrs): Test 06/02/17 12:06 06/02/17 17:08 06/02/17 20:46 06/03/17 07:45 Bedside Glucose 213 mg/dl (70-90) 259 mg/dl (70-90) 290 mg/dl (70-90) Random Glucose 242 mg/dl (70-99) Test 06/03/17 08:17 Bedside Glucose 270 mg/dl (70-90) HbA1c: Test 05/30/17 06:56 Hemoglobin A1c 9.4 % (4.5-5.6) H Recent Pertinent Medications The patient is currently receiving: * Basal insulin: Levemir 18 units every 12 hours * Correctional Insulin: Novolog Correction per scale ACHS Goal Range: Low 110 mg/dL - High 140 mg/dL Correction Factor: 40 mg/dL/unit * Prandial insulin: Per carb ratio of 1 unit per 7 grams CHO consumed Assessment & Plan ASSESSMENT: * See progress note from 05/29/17 for more background info, in short: * Pt receiving SQ basal bolus insulin regimen for hyperglycemia secondary to baseline DM (outpatient regimen is SQ basal bolus), stress/infection * Changes needed to insulin regimen: * BSGs over the past 24 hours have continued to rise: 90-->213-->259-->290 * AM Fasting BSG = 270 mg/dl. This is above goal range for patient based on inpatient targets and co-morbidities. * Post-prandial BSGs are all above goal range, with lunch BSG now up to 336 * Spoke with MD - losing control with basal/bolus and with YVETTE I do not want to give large increases and cause her to be low as she is a Type 1 - initiate insulin drip as this is our safest option - overlap with Lantus to help ease transition when decided * Additional notes / comments: A1c increased from 8.6% 05/09/17 to 9.4% on . Unsure of the clinical significance of this as pt has CKD which can alter RBC turnover rate and effect the validity of the A1c. BSGs may have been elevated over the past few weeks secondary to infection and therefore increased A1c. PLAN FOR INPATIENT GLYCEMIC CONTROL: * Initiate insulin drip per protocol * Goal 120 - 200 mg/dL * Overlap with Basal insulin * Levemir 18 units SQ BID * Bolus insulin * NovoLog per scale [facility] * Carb ratio per drip calculator * Please note that the plan above was derived based on current level of insulin resistance and hospital stress. These recommendations are appropriate for inpatient admission only. Plan of care upon discharge will need to be reassessed to avoid potential outpatient hypo/hyperglycemia.
[2017-06-03 11:08] LABS: URINE APPEARANCE CLEAR (CLEAR); URINE BILIRUBIN NEG (NEG); URINE COLOR YELLOW; URINE NITRITE NEG (NEG); URINE SPECIFIC GRAVITY 1.021 (1.000-1.030); UROBILINOGEN NEG (NEG)
[2017-06-03 11:09] LABS: MANUAL MICROSCOPIC REQUIRED? NO; REVIEW REQ? NO
[2017-06-03 11:35] LABS: URINE PROTIEN/CREAT RATIO 0.6 (0-0.2)
--- NOTE | 2017-06-03 11:45 | DIAGNOSTIC IMAGING REPORT ---
(RENAL)RETROPERITON COMP CLINICAL HISTORY: 52 years-old Female presenting with YVETTE. TECHNIQUE: Real-time grayscale and limited color Doppler ultrasound imaging of the kidneys and bladder was performed. COMPARISON: 01/24/2013. FINDINGS: Right kidney: Normal echogenicity. Right kidney measures 10.3 cm. No hydronephrosis. No convincing evidence of calculus or mass. Normal perfusion. Left kidney: Normal echogenicity. Left kidney measures 10.1 cm. No hydronephrosis. No convincing evidence of calculus or mass. Normal perfusion. Bladder: No bladder wall thickening. Ureteral jets not visualized. Other: None. IMPRESSION: 1. Normal renal ultrasound. No obstruction. Electronically signed by: Rashaad Richter M.D. 06/03/2017 11:44 AM Dictated Date/Time: 06/03/2017 11:43 AM
[2017-06-03] MEDS ORDERED: INSULIN ASPART 100 UNITS/ML 3 ML PEN SC SCH (12:00)
[2017-06-03] MEDS: AMPHETAMINE ASP/SULF/DEXTRAMPH 10 MG TAB PO SCH (12:13)
[2017-06-03] MEDS ORDERED: INSULIN HUMAN REGULAR IV BOLUS 3 UNIT in SYRINGE 0 ML IV SCH (12:45)
[2017-06-03] MEDS: INSULIN REGULAR 250 UNITS in SODIUM CHLORIDE 0.9% 250ML 250 ML IV SCH ×5 (13:02→18:15)
[2017-06-03] MEDS ORDERED: LEVOFLOXACIN 750 MG TAB PO SCH (15:00)
--- NOTE | 2017-06-03 15:05 | Infectious Disease Progress Nt ---
Progress Note Date of Service Jun 03, 2017. Subjective Pt evaluation today including: conversation w/ patient, conversation w/ family , physical exam, chart review, lab review, review of studies, conversation w/ [facility] consultant, review of inpatient medication list Recent events reviewed. Patient has developed acute kidney injury with rising creatinine. Discussed with Nephrology who was worried about the possibility of daptomycin induced interstitial nephritis. Patient appears to be improving in terms of her right great toe infection. Less drainage, less odor. No fever or chills. All Other Systems: Reviewed and Negative Medications Current Inpatient Medications Medications (Trade) Dose Ordered Sig/Kike Route Start Time Stop Time Status Last Admin Dose Admin Heparin Sodium (Porcine) (Heparin Sq 5000 Unit/0.5ml) 5,000 unit Q8 SQ 05/29/17 22:00 06/28/17 21:59 Acetaminophen (Tylenol Tab) 650 mg Q4H PRN PO 05/29/17 18:30 06/28/17 18:29 Al Hydrox/Mg Hydrox/Simethicone (Maalox Max Susp) 15 ml Q4H PRN PO 05/29/17 18:30 06/28/17 18:29 Magnesium Hydroxide (Milk Of Magnesia Susp) 30 ml Q6H PRN PO 05/29/17 18:30 06/28/17 18:29 Polyethylene (Miralax Powder Packet) 17 gm DAILY PRN PO 05/29/17 18:30 06/28/17 18:29 Ondansetron HCl (Zofran Inj) 4 mg Q6H PRN IV 05/29/17 18:30 06/28/17 18:29 Aspirin (Ecotrin Tab) 162 mg HS PO 05/29/17 21:00 06/28/17 20:59 06/02/17 21:05 162 MG Loratadine (Claritin Tab) 10 mg QAM PO 05/30/17 09:00 06/29/17 08:59 06/03/17 09:07 10 MG Lorazepam (Ativan Tab) 1 mg HS PO 05/29/17 21:00 06/28/17 20:59 06/02/17 21:05 1 MG Metoclopramide HCl (Reglan Tab) 10 mg QID PO 05/29/17 21:00 06/28/17 20:59 06/03/17 12:38 10 MG Ondansetron HCl (Zofran Tab) 8 mg TID PO 05/29/17 21:00 06/28/17 20:59 06/03/17 14:02 8 MG Pantoprazole Sodium (Protonix Tab) 40 mg BID PO 05/29/17 21:00 06/28/17 20:59 06/03/17 09:10 40 MG Ranitidine HCl (zANTac TAB) 150 mg BID PO 05/29/17 21:00 06/28/17 20:59 06/03/17 09:12 150 MG Travoprost (Travatan Z) 1 drops HS OP 05/29/17 21:00 06/28/17 20:59 06/02/17 21:05 1 DROPS Cholecalciferol (Vitamin D Tab) 5,000 inter.unit DAILY PO 05/30/17 09:00 06/29/17 08:59 06/03/17 09:11 5,000 INTER.UNIT Miscellaneous Information (Order Awaiting Action) 1 ea QS N/A 05/30/17 00:00 06/29/17 00:00 Albuterol (Ventolin Hfa Inhaler) 2 puffs Q4H PRN INH 05/29/17 18:45 06/28/17 18:44 Bisacodyl (Dulcolax Tab) 10 mg HS PO 05/29/17 21:00 06/28/17 20:59 06/02/17 21:05 10 MG Furosemide (Lasix Tab) 40 mg DAILY PO 05/30/17 09:00 06/29/17 08:59 Future Hold 06/02/17 08:26 40 MG Metoprolol Tartrate (Lopressor Tab) 25 mg BID PO 05/29/17 21:00 06/28/17 20:59 06/03/17 09:09 25 MG Amphetamine Aspartate/ Amphetam Sulf (Amphetamine Aspartate/Amph Sulf/Dextramphet) 10 mg QDL PO 05/30/17 12:30 06/13/17 12:29 06/03/17 12:13 10 MG Miscellaneous Information (Consult Glycemic Management Pharmacy) 1 ea UD PRN N/A 05/29/17 19:02 06/28/17 19:01 Linaclotide (Linzess) 145 mcg QAM PO 05/30/17 09:00 06/29/17 08:59 06/03/17 09:07 145 MCG Non-Formulary Medication (Non-Formulary Patient'S Own Med) 1 ea DAILY PO 05/30/17 09:00 06/29/17 08:59 06/03/17 09:10 1 EA Vortioxetine (Trintellix) 20 mg DAILY PO 05/30/17 09:00 06/29/17 08:59 06/03/17 09:11 20 MG Amphetamine/ Dextroamphetamine (Adderall Xr 30 Mg) 30 mg BID@0800,1200 PO 05/30/17 14:30 06/29/17 14:29 06/03/17 12:13 30 MG Non-Formulary Medication (Patient'S Own Controlled Med) 1 ea BID@0800,1200 PO 05/30/17 14:30 06/13/17 14:29 06/01/17 12:22 1 EA Glucose (Glucose 40% Gel) 15-30 GRAMS 15 GRAMS... UD PRN PO 05/31/17 10:15 06/30/17 10:14 Glucose (Glucose Chew Tab) 4-8 Tablets 4 Tabl... UD PRN PO 05/31/17 10:15 06/30/17 10:14 Dextrose (Dextrose 50% 50ML Syringe) 25-50ML OF 50% DW IV FOR... UD PRN IV 05/31/17 10:15 06/30/17 10:14 Glucagon (Glucagon Inj) 1 mg UD PRN SQ 05/31/17 10:15 06/30/17 10:14 Heparin Sodium (Porcine) (Heparin 10 Unit/ ml 5 ml Flush) 5 ml PRN PRN FLUSH 05/31/17 20:00 06/30/17 19:59 06/02/17 07:28 5 ML Lactobacillus Acidophilus (Floranex Tab) 4 tab TIDM PO 06/01/17 17:45 07/01/17 17:44 06/03/17 12:38 4 TAB Sodium Chloride 1,000 ml @ 50 mls/hr Q20H IV 06/02/17 12:00 07/02/17 11:59 06/03/17 08:17 50 MLS/HR Insulin Detemir (Levemir Flexpen/ FlexTouch) 18 units BID SC 06/03/17 21:00 07/03/17 20:59 Insulin Human Regular 250 units/ Sodium Chloride 252.5 ml @ 0 mls/hr DAILY@1130 IV 06/03/17 12:45 07/03/17 12:44 06/03/17 14:13 4.2 MLS/HR Insulin Aspart (novoLOG ASPART) SLIDING SCALE PCHS SC 06/03/17 13:00 07/03/17 12:59 06/03/17 13:10 7 UNITS Levofloxacin (Levaquin Tab) 750 mg Q48H PO 06/03/17 15:00 07/15/17 14:59 Objective Vital Signs Date Time Temp Pulse Resp B/P (MAP) Pulse Ox O2 Delivery O2 Flow Rate FiO2 06/03/17 07:11 36.7 79 16 137/68 (91) 97 Room Air 06/03/17 07:10 Room Air 06/02/17 23:15 Room Air 06/02/17 22:55 36.8 79 16 148/77 (100) 97 Room Air 06/02/17 15:40 Room Air 06/02/17 15:10 36.8 87 20 122/68 (86) 94 Room Air Physical Exam General Appearance: WD/WN, no apparent distress Eyes: normal inspection, sclerae normal ENT: normal ENT inspection, pharynx normal Neck: supple, no adenopathy, trachea midline Respiratory/Chest: chest non-tender, lungs clear, normal breath sounds, no respiratory distress Cardiovascular: regular rate, rhythm, no gallop, no murmur Abdomen: normal bowel sounds, non tender, soft, no organomegaly Extremities: non-tender, no calf tenderness Neurologic/Psychiatric: alert, oriented x 3 Skin: normal color, no rash, + pertinent finding (Left great toe infection improved) Lymphatic: no adenopathy Laboratory Results RUN DATE: 05/31/17 [facility] LAB PAGE 1 RUN TIME: 1112 Specimen Inquiry PATIENT: GRECIA ROSADO LOC: [facility]ERT U # : [id number] AGE/SX: 52/F ROOM: [facility] REG : 05/29/[address]: Yonas Mak MD : [id number] BED: 2 DIS : STATUS: ADM IN TLOC: SPEC #: [id number] BRENDA: 05/29/17-1514 STATUS: COMP REQ #: [id number] RECD: 05/29/17-[address]: Britney Saldana PA SOURCE: DRAIN-SURF ENTR: 05/29/17-[address]: Allan Todd DO SPDESC: FOOT RIGHT Devon Biggs D.OOscar ORDERED: SURF WND CU/CAROLYN COMMENTS: Has Specimen Been Obtained/Collected? Y Procedure Result Verified Site GRAM STAIN Final 05/30/17-0651 RESULT RARE WBCs SEEN MODERATE GRAM POSITIVE COCCI SURFACE WOUND CULTURE Final 05/31/17-1112 Organism 1 SERRATIA MARCESCENS QUANITY FEW SENS SENSITIVITY TO FOLLOW +MIXWOUND PLUS LOW COUNTS OF PROBABLE SKIN ZOE Organism 2 ALPHA STREP. NOT ENTEROCOCCUS QUANITY MANY SENS NO SENSITIVITY TO FOLLOW 1. SERRATIA MARCESCENS Target Route Dose RX AB Cost M.I.C. IQ ------ ----- ------ -- ------ -------- - ------ TRIMET/SULFA S <=2/38 CEFOTAXIME S <=2 CEFTRIAXONE S <=1 CEFEPIME S <=4 IMIPENEM S <=1 GENTAMICIN S <=4 TOBRAMYCIN S <=4 AMIKACIN S <=16 CIPROFLOXACIN S <=1 LEVOFLOXACIN S <=2 ERTAPENEM S <=1 PIP/TAZO S <=16 S = SENSITIVE I = INTERMEDIATE R = RESISTANT Last 24 Hours Test 06/02/17 17:08 06/02/17 20:46 06/03/17 07:45 06/03/17 08:17 Bedside Glucose 259 mg/dl 290 mg/dl 270 mg/dl White Blood Count 5.98 K/uL Red Blood Count 3.43 M/uL Hemoglobin 9.9 g/dL Hematocrit 30.4 % Mean Corpuscular Volume 88.6 fL Mean Corpuscular Hemoglobin 28.9 pg Mean Corpuscular Hemoglobin Concent 32.6 g/dl Platelet Count 264 K/uL Mean Platelet Volume 9.0 fL Neutrophils (%) (Auto) 60.3 % Lymphocytes (%) (Auto) 23.6 % Monocytes (%) (Auto) 9.9 % Eosinophils (%) (Auto) 5.0 % Basophils (%) (Auto) 0.7 % Neutrophils # (Auto) 3.61 K/uL Lymphocytes # (Auto) 1.41 K/uL Monocytes # (Auto) 0.59 K/uL Eosinophils # (Auto) 0.30 K/uL Basophils # (Auto) 0.04 K/uL RDW Standard Deviation 39.3 fL RDW Coefficient of Variation 12.2 % Immature Granulocyte % (Auto) 0.5 % Immature Granulocyte # (Auto) 0.03 K/uL Sodium Level 138 mmol/L Potassium Level 4.3 mmol/L Chloride Level 109 mmol/L Carbon Dioxide Level 18 mmol/L Anion Gap 11.0 mmol/L Blood Urea Nitrogen 89 mg/dl Creatinine 3.40 mg/dl Est Creatinine Clear Calc Drug Dose 21.0 ml/min Estimated GFR () 17.0 Estimated GFR (Non- 14.6 BUN/Creatinine Ratio 26.2 Random Glucose 242 mg/dl Calcium Level 9.4 mg/dl Total Bilirubin 0.2 mg/dl Aspartate Amino Transf (AST/SGOT) 16 U/L Alanine Aminotransferase (ALT/SGPT) 21 U/L Alkaline Phosphatase 96 U/L Total Creatine Kinase 70 U/L Total Protein 6.2 gm/dl Albumin 2.9 gm/dl Globulin 3.3 gm/dl Albumin/Globulin Ratio 0.9 Test 06/03/17 10:50 Urine Color YELLOW Urine Appearance CLEAR Urine pH 5.0 Urine Specific [place] 1.021 Urine Protein TRACE Urine Glucose (UA) 1+ Urine Ketones NEG Urine Occult Blood TRACE Urine Nitrite NEG Urine Bilirubin NEG Urine Urobilinogen NEG Urine Leukocyte Esterase NEG Urine WBC (Auto) 1-5 /hpf Urine RBC (Auto) 0-4 /hpf Urine Hyaline Casts (Auto) 1-5 /lpf Urine Epithelial Cells (Auto) 5-10 /lpf Urine Bacteria (Auto) NEG Urine Random Creatinine 66.0 mg/dl Urine Random Total Protein 37.0 mg/dl Urine Protein/Creatinine Ratio 0.6 (RENAL)RETROPERITON COMP CLINICAL HISTORY: 52 years-old Female presenting with YVETTE. TECHNIQUE: Real-time grayscale and limited color Doppler ultrasound imaging of the kidneys and bladder was performed. COMPARISON: 01/24/2013. FINDINGS: Right kidney: Normal echogenicity. Right kidney measures 10.3 cm. No hydronephrosis. No convincing evidence of calculus or mass. Normal perfusion. Left kidney: Normal echogenicity. Left kidney measures 10.1 cm. No hydronephrosis. No convincing evidence of calculus or mass. Normal perfusion. Bladder: No bladder wall thickening. Ureteral jets not visualized. Other: None. IMPRESSION: 1. Normal renal ultrasound. No obstruction. Assessment and Plan Probable osteomyelitis of the right great toe in a diabetic female with severe neuropathy. Cultures positive for Pseudomonas, Serratia, and Streptococcus. Patient now with acute kidney injury, nephrology worry about antibiotics playing a role. Therefore have discontinued daptomycin and ciprofloxacin, and change patient to oral levofloxacin 750 mg Q 48 hours. Will follow.
[2017-06-03 15:09] VITALS: BP 154/78; PULSE 77; TEMP 36.6; O2SAT 95
--- NOTE | 2017-06-03 17:41 | Nephrology Consultation ---
Nephrology Consultation Date & Providers Date of Consultation: Jun 03, 2017. Primary Care Provider: Devon Biggs D.O. Referring Provider: Reason for Consultation Acute on chronic kidney injury History of Present Illness Mrs. Zhang is a 52 year old white female who is seen at the request of Dr. Mak for evaluation of acute on chronic kidney injury. Medical records in the hospital EMR were reviewed today and are summarized as follows: Mrs. Zhang has stage III CKD. Her baseline creatinine has been 1.8 w/ EGFR 30 cc/ min. Her primary Care Process Manager is Dr. Osborne. Patient's renal impairment is due to diabetic nephropathy and impaired perfusion associated w/ pulmonary hypertension and right sided heart failure. She has a history of diuretic resistance, IDDM, ischemic CMP and chronic tobacco use. Recently Mrs. Zhang has developed ulcers involving her R heel and great toe. She was admitted to the hospital 05/2717 for wound debridement and antibiotic therapy. She has several drug intolerances. She has been treated w/ IV Daptomycin and Azactam. Her creatinine has progressively risen to 3.3. 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 THEREFORE LISTED REACTION OF SOB IS UNLIKELY TO BE 2ND ANAPHYLAXIS Clopidogrel (Verified Allergy, Mild, rash, 05/29/17) rash due to Plavix or ertapenem Ertapenem (Verified Allergy, Mild, rash, 05/29/17) rash due to Plavix or ertapenem? Cephalosporins (Verified Allergy, Unknown, CECLOR-UNKNOWN, 05/29/17) Erythromycin (Unverified Allergy, Unknown, FROM H AND P-RASH, 05/29/17) Statins (Unverified Allergy, Unknown, MYALGIA, 05/29/17) Codeine (Verified Adverse Reaction, Unknown, VOMITING, 05/29/17) Nitrofurantoin (Unverified Adverse Reaction, Unknown, vomiting, 05/29/17) Pregabalin (Unverified Adverse Reaction, Unknown, VERY EMOTIONAL CRYING, ) Inpatient Medications Current Inpatient Medications Medications (Trade) Dose Ordered Sig/Kike Route Start Time Stop Time Status Last Admin Dose Admin Heparin Sodium (Porcine) (Heparin Sq 5000 Unit/0.5ml) 5,000 unit Q8 SQ 05/29/17 22:00 06/28/17 21:59 Acetaminophen (Tylenol Tab) 650 mg Q4H PRN PO 05/29/17 18:30 06/28/17 18:29 Al Hydrox/Mg Hydrox/Simethicone (Maalox Max Susp) 15 ml Q4H PRN PO 05/29/17 18:30 06/28/17 18:29 Magnesium Hydroxide (Milk Of Magnesia Susp) 30 ml Q6H PRN PO 05/29/17 18:30 06/28/17 18:29 Polyethylene (Miralax Powder Packet) 17 gm DAILY PRN PO 05/29/17 18:30 06/28/17 18:29 Ondansetron HCl (Zofran Inj) 4 mg Q6H PRN IV 05/29/17 18:30 06/28/17 18:29 Aspirin (Ecotrin Tab) 162 mg HS PO 05/29/17 21:00 06/28/17 20:59 06/02/17 21:05 162 MG Loratadine (Claritin Tab) 10 mg QAM PO 05/30/17 09:00 06/29/17 08:59 06/03/17 09:07 10 MG Lorazepam (Ativan Tab) 1 mg HS PO 05/29/17 21:00 06/28/17 20:59 06/02/17 21:05 1 MG Metoclopramide HCl (Reglan Tab) 10 mg QID PO 05/29/17 21:00 06/28/17 20:59 06/03/17 17:10 10 MG Ondansetron HCl (Zofran Tab) 8 mg TID PO 05/29/17 21:00 06/28/17 20:59 06/03/17 14:02 8 MG Pantoprazole Sodium (Protonix Tab) 40 mg BID PO 05/29/17 21:00 06/28/17 20:59 06/03/17 09:10 40 MG Ranitidine HCl (zANTac TAB) 150 mg BID PO 05/29/17 21:00 06/28/17 20:59 06/03/17 09:12 150 MG Travoprost (Travatan Z) 1 drops HS OP 05/29/17 21:00 06/28/17 20:59 06/02/17 21:05 1 DROPS Cholecalciferol (Vitamin D Tab) 5,000 inter.unit DAILY PO 05/30/17 09:00 06/29/17 08:59 06/03/17 09:11 5,000 INTER.UNIT Miscellaneous Information (Order Awaiting Action) 1 ea QS N/A 05/30/17 00:00 06/29/17 00:00 Albuterol (Ventolin Hfa Inhaler) 2 puffs Q4H PRN INH 05/29/17 18:45 06/28/17 18:44 Bisacodyl (Dulcolax Tab) 10 mg HS PO 05/29/17 21:00 06/28/17 20:59 06/02/17 21:05 10 MG Furosemide (Lasix Tab) 40 mg DAILY PO 05/30/17 09:00 06/29/17 08:59 Future Hold 06/02/17 08:26 40 MG Metoprolol Tartrate (Lopressor Tab) 25 mg BID PO 05/29/17 21:00 06/28/17 20:59 06/03/17 09:09 25 MG Amphetamine Aspartate/ Amphetam Sulf (Amphetamine Aspartate/Amph Sulf/Dextramphet) 10 mg QDL PO 05/30/17 12:30 06/13/17 12:29 06/03/17 12:13 10 MG Miscellaneous Information (Consult Glycemic Management Pharmacy) 1 ea UD PRN N/A 05/29/17 19:02 06/28/17 19:01 Linaclotide (Linzess) 145 mcg QAM PO 05/30/17 09:00 06/29/17 08:59 06/03/17 09:07 145 MCG Non-Formulary Medication (Non-Formulary Patient'S Own Med) 1 ea DAILY PO 05/30/17 09:00 10/28/17 08:59 06/03/17 09:10 1 EA Vortioxetine (Trintellix) 20 mg DAILY PO 05/30/17 09:00 06/29/17 08:59 06/03/17 09:11 20 MG Amphetamine/ Dextroamphetamine (Adderall Xr 30 Mg) 30 mg BID@0800,1200 PO 05/30/17 14:30 06/29/17 14:29 06/03/17 12:13 30 MG Non-Formulary Medication (Patient'S Own Controlled Med) 1 ea BID@0800,1200 PO 05/30/17 14:30 06/13/17 14:29 06/01/17 12:22 1 EA Glucose (Glucose 40% Gel) 15-30 GRAMS 15 GRAMS... UD PRN PO 05/31/17 10:15 06/30/17 10:14 Glucose (Glucose Chew Tab) 4-8 Tablets 4 Tabl... UD PRN PO 05/31/17 10:15 06/30/17 10:14 Dextrose (Dextrose 50% 50ML Syringe) 25-50ML OF 50% DW IV FOR... UD PRN IV 05/31/17 10:15 06/30/17 10:14 Glucagon (Glucagon Inj) 1 mg UD PRN SQ 05/31/17 10:15 06/30/17 10:14 Heparin Sodium (Porcine) (Heparin 10 Unit/ ml 5 ml Flush) 5 ml PRN PRN FLUSH 05/31/17 20:00 06/30/17 19:59 06/02/17 07:28 5 ML Lactobacillus Acidophilus (Floranex Tab) 4 tab TIDM PO 06/01/17 17:45 07/01/17 17:44 06/03/17 12:38 4 TAB Sodium Chloride 1,000 ml @ 50 mls/hr Q20H IV 06/02/17 12:00 07/02/17 11:59 06/03/17 08:17 50 MLS/HR Insulin Detemir (Levemir Flexpen/ FlexTouch) 18 units BID SC 06/03/17 21:00 07/03/17 20:59 Insulin Human Regular 250 units/ Sodium Chloride 252.5 ml @ 0 mls/hr DAILY@1130 IV 06/03/17 12:45 07/03/17 12:44 06/03/17 17:14 4.7 MLS/HR Insulin Aspart (novoLOG ASPART) SLIDING SCALE PCHS SC 06/03/17 13:00 07/03/17 12:59 06/03/17 13:10 7 UNITS Levofloxacin (Levaquin Tab) 750 mg Q48H PO 06/03/17 15:00 07/15/17 14:59 06/03/17 16:26 750 MG Family History FH: CAD (coronary artery disease) FATHER (DE at age 47, CABG x 4 ) Negative for CKD/ESRD Social History Smoking Status: Current Every Day Smoker Drug Use: none Marital Status: Housing Status: lives with significant other Occupation: disabled . Disabled. Current every day smoker. Review of Systems Constitutional: No fever Respiratory: No cough, No shortness of breath Cardiovascular: No chest pain Abdomen: No pain, No nausea, No vomiting, No diarrhea Integumentary: No rash A complete review of systems was performed. Pertinent positives are noted above. All other systems are negative. Physical Exam Date Time Temp Pulse Resp B/P (MAP) Pulse Ox O2 Delivery O2 Flow Rate FiO2 06/03/17 15:09 36.6 77 18 154/78 (103) 95 Room Air 06/03/17 15:05 Room Air 06/03/17 07:11 36.7 79 16 137/68 (91) 97 Room Air 06/03/17 07:10 Room Air 06/02/17 23:15 Room Air 06/02/17 22:55 36.8 79 16 148/77 (100) 97 Room Air General Appearance: no apparent distress Head: normocephalic, atraumatic Eyes: PERRL, EOMI Neck: no adenopathy Respiratory/Chest: lungs clear, no respiratory distress Cardiovascular: regular rate, rhythm Abdomen/GI: normal bowel sounds, non tender, soft Back: no CVA tenderness Extremities/Musculoskelatal: no calf tenderness, no pedal edema Neurologic/Psych: alert, oriented x 3 Skin: warm/dry Laboratory Results Last 24 Hours Test 06/02/17 20:46 06/03/17 07:45 06/03/17 08:17 06/03/17 10:50 Bedside Glucose 290 mg/dl 270 mg/dl White Blood Count 5.98 K/uL Red Blood Count 3.43 M/uL Hemoglobin 9.9 g/dL Hematocrit 30.4 % Mean Corpuscular Volume 88.6 fL Mean Corpuscular Hemoglobin 28.9 pg Mean Corpuscular Hemoglobin Concent 32.6 g/dl Platelet Count 264 K/uL Mean Platelet Volume 9.0 fL Neutrophils (%) (Auto) 60.3 % Lymphocytes (%) (Auto) 23.6 % Monocytes (%) (Auto) 9.9 % Eosinophils (%) (Auto) 5.0 % Basophils (%) (Auto) 0.7 % Neutrophils # (Auto) 3.61 K/uL Lymphocytes # (Auto) 1.41 K/uL Monocytes # (Auto) 0.59 K/uL Eosinophils # (Auto) 0.30 K/uL Basophils # (Auto) 0.04 K/uL RDW Standard Deviation 39.3 fL RDW Coefficient of Variation 12.2 % Immature Granulocyte % (Auto) 0.5 % Immature Granulocyte # (Auto) 0.03 K/uL Sodium Level 138 mmol/L Potassium Level 4.3 mmol/L Chloride Level 109 mmol/L Carbon Dioxide Level 18 mmol/L Anion Gap 11.0 mmol/L Blood Urea Nitrogen 89 mg/dl Creatinine 3.40 mg/dl Est Creatinine Clear Calc Drug Dose 21.0 ml/min Estimated GFR () 17.0 Estimated GFR (Non- 14.6 BUN/Creatinine Ratio 26.2 Random Glucose 242 mg/dl Calcium Level 9.4 mg/dl Total Bilirubin 0.2 mg/dl Aspartate Amino Transf (AST/SGOT) 16 U/L Alanine Aminotransferase (ALT/SGPT) 21 U/L Alkaline Phosphatase 96 U/L Total Creatine Kinase 70 U/L Total Protein 6.2 gm/dl Albumin 2.9 gm/dl Globulin 3.3 gm/dl Albumin/Globulin Ratio 0.9 Urine Color YELLOW Urine Appearance CLEAR Urine pH 5.0 Urine Specific [place] 1.021 Urine Protein TRACE Urine Glucose (UA) 1+ Urine Ketones NEG Urine Occult Blood TRACE Urine Nitrite NEG Urine Bilirubin NEG Urine Urobilinogen NEG Urine Leukocyte Esterase NEG Urine WBC (Auto) 1-5 /hpf Urine RBC (Auto) 0-4 /hpf Urine Hyaline Casts (Auto) 1-5 /lpf Urine Epithelial Cells (Auto) 5-10 /lpf Urine Bacteria (Auto) NEG Urine Random Creatinine 66.0 mg/dl Urine Random Total Protein 37.0 mg/dl Urine Protein/Creatinine Ratio 0.6 Test 06/03/17 14:07 06/03/17 15:07 06/03/17 17:01 Bedside Glucose 393 mg/dl 416 mg/dl 237 mg/dl Impression (1) Acute kidney injury (2) Chronic kidney disease (3) Ischemic ulcer diabetic foot Recommendations ACUTE KIDNEY INJURY: -- Will order urinalysis w/ microscopy and UPCR -- Will order renal US -- Will send urine for cytology -- Will order urine eosinophils -- Question whether patient has Daptomycin related AIN/YVETTE. Will discuss alternative antibiotic regimens w/ ID -- Monitor serial PRP, UO CHRONIC KIDNEY DISEASE: -- Baseline creatinine has been 1.8 - 2.1 One hour visit provided to patient today. This was necessary to review medical records in EMR, perform physical exam and to discuss management plan w/ ID rn lactation consultant. Over 50% of time provided was spent on coordination of care.
--- NOTE | 2017-06-03 19:05 | Progress Note ---
Internal Med Progress Note Date of Service: Jun 03, 2017. Provider Documentation: SUBJECTIVE: resting comfortably ambulating fine afebrile no sob no diarrhea OBJECTIVE: Vital Signs-as noted below Exam: General-alert and awake. not in distress ENT-normal hearing Neck-no neck masses supple Lungs-cta b/l no wheezing or crackles Heart-s1 and s2 heard regular rate and rhythm no murmurs Abdomen-soft bowel sounds present non tender no distension Extremities-no erythema draining pressure ulcer on the right heel and right big toe-in dressing Neuro-alert and awake moves extremities Lab data as noted below. ASSESSMENT & PLAN: This is a 52-year-old female who presents with non-healing foot ulcer. 1. Nonhealing right foot diabetic ulcer. Right heel pressure ulcer is stage III to IV, was there before and the right first toe ulcer is new, foul smelling drainage, possible osteomyelitis on x-ray of the right first toe. THE PATIENT IS ALLERGIC TO MULTIPLE ANTIBIOTICS. on iv daptomycin and azactum ID and wound care on board cx growing pseudomonas,.serratia marcescens,alpha strep not enterococcus MRI confirms osteomyelitis s/p picc line ID recommends six weeks of iv daptomycin and po cipro but because of renal failure possibly from abx ID changed abx to po Levaquin 750mg q 48hrs If discharging on po abx will d/c picc line at discharge. duration of po abx as per ID 2. Arf on ckd stage 3 baseline cr 1.8 cr 3.4 today- from dapto? holding lasix on gentle fluids nephrology consulted and appreciate inputs f/u labs 3. History of right-sided heart failure, diastolic dysfunction, chronic, currently stable. holding lasix and on gentle fluids. close monitor for volume overload. 4. Coronary artery disease status post coronary artery bypass grafting. Continue aspirin, beta kathy. Not on statin.stable. 5. History of bipolar and attention deficit disorder, on Trintellix, Ativan and Adderall.stable. 6. History of diabetes. Continue home Lantus plus insulin sliding scale. HbA1c levels 9.4. Sugars running high today. started on insulin drip. close monitor. Appreciate pharmacy inputs 7. History of gastroesophageal reflux disease. Continue proton pump inhibitor and Zantac. 8. History of hypertension, on metoprolol. We will follow the blood pressure. 9. History of constipation, on linzess.. 10. History of anemia from chronic kidney disease. We will follow the labs.hb 9.9 today 11. History of gastroparesis, on Reglan. 12. History of obstructive sleep apnea, on CPAP. 13. Deep venous thrombosis prophylaxis. Heparin subQ DISPOSITION possible d/c in 2-3 days pt/ot social service for d/c planning Vital Signs: Date Time Temp Pulse Resp B/P (MAP) Pulse Ox O2 Delivery O2 Flow Rate FiO2 06/03/17 15:09 36.6 77 18 154/78 (103) 95 Room Air 06/03/17 15:05 Room Air 06/03/17 07:11 36.7 79 16 137/68 (91) 97 Room Air 06/03/17 07:10 Room Air 06/02/17 23:15 Room Air 06/02/17 22:55 36.8 79 16 148/77 (100) 97 Room Air Lab Results: Results Past 24 Hours Test 06/02/17 20:46 06/03/17 07:45 06/03/17 08:17 06/03/17 10:50 Range/Units Bedside Glucose 290 270 70-90 mg/dl White Blood Count 5.98 4.8-10.8 K/uL Red Blood Count 3.43 4.2-5.4 M/uL Hemoglobin 9.9 12.0-16.0 g/dL Hematocrit 30.4 37-47 % Mean Corpuscular Volume 88.6 80-100 fL Mean Corpuscular Hemoglobin 28.9 25-34 pg Mean Corpuscular Hemoglobin Concent 32.6 32-36 g/dl Platelet Count 264 130-400 K/uL Mean Platelet Volume 9.0 7.4-10.4 fL Neutrophils (%) (Auto) 60.3 % Lymphocytes (%) (Auto) 23.6 % Monocytes (%) (Auto) 9.9 % Eosinophils (%) (Auto) 5.0 % Basophils (%) (Auto) 0.7 % Neutrophils # (Auto) 3.61 1.4-6.5 K/uL Lymphocytes # (Auto) 1.41 1.2-3.4 K/uL Monocytes # (Auto) 0.59 0.11-0.59 K/uL Eosinophils # (Auto) 0.30 0-0.5 K/uL Basophils # (Auto) 0.04 0-0.2 K/uL RDW Standard Deviation 39.3 36.4-46.3 fL RDW Coefficient of Variation 12.2 11.5-14.5 % Immature Granulocyte % (Auto) 0.5 % Immature Granulocyte # (Auto) 0.03 0.00-0.02 K/uL Sodium Level 138 136-145 mmol/L Potassium Level 4.3 3.5-5.1 mmol/L Chloride Level 109 98-107 mmol/L Carbon Dioxide Level 18 21-32 mmol/L Anion Gap 11.0 3-11 mmol/L Blood Urea Nitrogen 89 7-18 mg/dl Creatinine 3.40 0.60-1.20 mg/dl Est Creatinine Clear Calc Drug Dose 21.0 ml/min Estimated GFR () 17.0 Estimated GFR (Non- 14.6 BUN/Creatinine Ratio 26.2 10-20 Random Glucose 242 70-99 mg/dl Calcium Level 9.4 8.5-10.1 mg/dl Total Bilirubin 0.2 0.2-1 mg/dl Aspartate Amino Transf (AST/SGOT) 16 15-37 U/L Alanine Aminotransferase (ALT/SGPT) 21 12-78 U/L Alkaline Phosphatase 96 45-117 U/L Total Creatine Kinase 70 26-192 U/L Total Protein 6.2 6.4-8.2 gm/dl Albumin 2.9 3.4-5.0 gm/dl Globulin 3.3 2.5-4.0 gm/dl Albumin/Globulin Ratio 0.9 0.9-2 Urine Color YELLOW Urine Appearance CLEAR CLEAR Urine pH 5.0 4.5-7.5 Urine Specific [place] 1.021 1.000-1.030 Urine Protein TRACE NEG Urine Glucose (UA) 1+ NEG Urine Ketones NEG NEG Urine Occult Blood TRACE NEG Urine Nitrite NEG NEG Urine Bilirubin NEG NEG Urine Urobilinogen NEG NEG Urine Leukocyte Esterase NEG NEG Urine WBC (Auto) 1-5 0-5 /hpf Urine RBC (Auto) 0-4 0-4 /hpf Urine Hyaline Casts (Auto) 1-5 0-5 /lpf Urine Epithelial Cells (Auto) 5-10 0-5 /lpf Urine Bacteria (Auto) NEG NEG Urine Random Creatinine 66.0 mg/dl Urine Random Total Protein 37.0 0-11.9 mg/dl Urine Protein/Creatinine Ratio 0.6 0-0.2 Test 06/03/17 12:25 06/03/17 14:07 06/03/17 15:07 06/03/17 16:08 Range/Units Bedside Glucose 336 393 416 301 70-90 mg/dl Test 06/03/17 17:01 06/03/17 18:06 Range/Units Bedside Glucose 237 131 70-90 mg/dl
[2017-06-03] MEDS: ASPIRIN 81 MG ECTAB PO SCH (20:39)
[2017-06-03] MEDS: LORAZEPAM 1 MG TAB PO SCH (20:40)
[2017-06-03] MEDS: BISACODYL 5 MG TABEC PO SCH (20:40)
[2017-06-03] MEDS: TRAVOPROST Z 0.004% OPH SOLN 2.5 ML BTL OP SCH (20:40)
[2017-06-03] MEDS ORDERED: INSULIN DETEMIR FLEXPEN/FLEX TOUCH 100 UNITS/ML 3ML SC SCH (21:00)
[2017-06-03 22:50] VITALS: BP 148/62; PULSE 74; TEMP 36.2; O2SAT 98
[2017-06-04] MEDS ORDERED: INSULIN ASPART 100 UNITS/ML 3 ML PEN SC SCH
[2017-06-04] MEDS: SODIUM CHLORIDE 0.9% 1000ML 1,000 ML IV SCH ×2 (03:43→23:41)
[2017-06-04] MEDS: INSULIN REGULAR 250 UNITS in SODIUM CHLORIDE 0.9% 250ML 250 ML IV SCH ×12 (05:14→20:39)
[2017-06-04 05:39] LABS: BASO % 0.6 %; BASO ABS # 0.04 K/uL (0-0.2); EOS % 4.9 %; HEMATOCRIT 27.2 % (37-47); IG% 0.3 %; LYMPH % 32.1 %; LYMPH ABS # 2.04 K/uL (1.2-3.4); MEAN CELL VOLUME 88.9 fL (80-100); MEAN CORPUSCULAR HEMOGLOBIN 29.1 pg (25-34); MEAN CORPUSCULAR HGB CONC 32.7 g/dl (32-36); MEAN PLATELET VOLUME 8.5 fL (7.4-10.4); MONO % 7.1 %; PLATELET COUNT 245 K/uL (130-400); RED BLOOD COUNT 3.06 M/uL (4.2-5.4); WHITE BLOOD COUNT 6.35 K/uL (4.8-10.8)
[2017-06-04] MEDS: HEPARIN SOD 5000 UNIT/0.5 ML CARP SQ SCH ×3 (05:40→20:45)
[2017-06-04 06:01] LABS: COMPLETE YES
[2017-06-04 06:06] LABS: BUN/CREATININE RATIO 25.9 (10-20); CALCIUM 8.9 mg/dl (8.5-10.1); CREATININE 3.4 mg/dl (0.60-1.20); POTASSIUM 4.6 mmol/L (3.5-5.1)
[2017-06-04 07:10] VITALS: BP 147/80; PULSE 81; TEMP 36.8; O2SAT 97
[2017-06-04] MEDS: PATADAY~ORDER AWAITING ACTION SCH ×3 (07:31→22:46)
[2017-06-04] MEDS: AMPHETAMINE-DEXTROAMPHETAMINE 30 MG CAP PO SCH ×2 (08:44→12:52)
[2017-06-04] MEDS: ADDERALL 30 MG PO SCH ×2 (08:45→12:52)
[2017-06-04] MEDS: LINACLOTIDE 145 MCG CAP PO SCH (08:47)
[2017-06-04] MEDS: ONDANSETRON 8 MG TAB PO SCH ×3 (08:47→20:45)
[2017-06-04] MEDS: PANTOprazole SOD 40 MG TAB PO SCH ×2 (08:47→20:45)
[2017-06-04] MEDS: CHOLECALCIFEROL 1000 INTER.UNIT TAB PO SCH (08:47)
[2017-06-04] MEDS: RANITIDINE HCL 150 MG TAB PO SCH ×2 (08:47→20:45)
[2017-06-04] MEDS: METOPROLOL TARTRATE 25 MG TAB PO SCH ×2 (08:47→20:45)
[2017-06-04] MEDS: LORATADINE 10 MG TAB PO SCH (08:47)
[2017-06-04] MEDS: LACTOBACILLUS ACIDOPHILUS (FLORANEX) TAB PO SCH ×3 (08:47→17:44)
[2017-06-04] MEDS: METOCLOPRAMIDE HCL 10 MG TAB PO SCH ×4 (08:47→20:45)
[2017-06-04] MEDS: VORTIOXETINE HBR 20 MG PO SCH (08:48)
[2017-06-04] MEDS: NON-FORMULARY PATIENT'S OWN MED PO SCH (08:48)
[2017-06-04] MEDS: INSULIN ASPART 100 UNITS/ML 3 ML PEN SC SCH ×4 (08:56→20:44)
[2017-06-04] MEDS: INSULIN DETEMIR FLEXPEN/FLEX TOUCH 100 UNITS/ML 3ML SC SCH ×2 (08:57→20:40)
--- NOTE | 2017-06-04 09:30 | Pharmacy Progress Note ---
Glycemic Control Progress Note Date of Service Jun 04, 2017. Scope Glycemic Pharmacist consulted for glycemic control to write orders per [facility] inpatient glycemic control protocol. Objective Accuchecks BSG (last 24hrs): Test 06/03/17 12:25 06/03/17 14:07 06/03/17 15:07 06/03/17 16:08 Bedside Glucose 336 mg/dl (70-90) 393 mg/dl (70-90) 416 mg/dl (70-90) 301 mg/dl (70-90) Test 06/03/17 17:01 06/03/17 18:06 06/03/17 19:13 06/03/17 19:39 Bedside Glucose 237 mg/dl (70-90) 131 mg/dl (70-90) 87 mg/dl (70-90) 77 mg/dl (70-90) Test 06/03/17 20:21 06/03/17 20:33 06/03/17 22:21 06/04/17 00:19 Bedside Glucose 93 mg/dl (70-90) 95 mg/dl (70-90) 143 mg/dl (70-90) 172 mg/dl (70-90) Test 06/04/17 02:18 06/04/17 04:56 06/04/17 05:19 06/04/17 07:23 Bedside Glucose 177 mg/dl (70-90) 210 mg/dl (70-90) 153 mg/dl (70-90) Random Glucose 200 mg/dl (70-99) Test 06/04/17 08:14 Bedside Glucose 128 mg/dl (70-90) HbA1c: Test 05/30/17 06:56 Hemoglobin A1c 9.4 % (4.5-5.6) H Recent Pertinent Medications The patient is currently receiving: * Insulin drip per protocol PLUS Levemir 18 units BID Assessment & Plan ASSESSMENT: * See progress note from 05/29/17 for more background info, in short: * Pt receiving SQ basal bolus insulin regimen for hyperglycemia secondary to baseline DM (outpatient regimen is SQ basal bolus), stress/infection * Changes needed to insulin regimen: * BSGs continued to increase yesterday into the 300's despite changes to insulin regimen * It was decided at that point to put patient on insulin drip in addition to Levemir * Through the evening, drip rates were up to 5 units/hr then dramatically decreased to 2 units/hr then holding * Drip held from ~2100 - 0500 then restarted * Given her trend I do not feel she can be safely managed with SQ alone throughout the day - too much snacking * Insulin drip throughout the day would likely be the most appropriate and then it can be held throughout the night if necessary * Will discuss options with provider * Additional notes / comments: A1c increased from 8.6% 05/09/17 to 9.4% on . Unsure of the clinical significance of this as pt has CKD which can alter RBC turnover rate and effect the validity of the A1c. BSGs may have been elevated over the past few weeks secondary to infection and therefore increased A1c. PLAN FOR INPATIENT GLYCEMIC CONTROL: * Initiate insulin drip per protocol - if necessary hold drip and check every hour and restart when BSG greater than 180 * Goal 120 - 200 mg/dL * Overlap with Basal insulin * Levemir 14 units SQ BID * Bolus insulin * NovoLog per scale PCHS * Carb ratio per drip calculator * Please note that the plan above was derived based on current level of insulin resistance and hospital stress. These recommendations are appropriate for inpatient admission only. Plan of care upon discharge will need to be reassessed to avoid potential outpatient hypo/hyperglycemia.
--- NOTE | 2017-06-04 09:49 | Infectious Disease Progress Nt ---
Progress Note Date of Service Jun 04, 2017. Subjective Pt evaluation today including: conversation w/ patient, conversation w/ family , physical exam, chart review, lab review, review of studies, conversation w/ care consultant, review of inpatient medication list Patient offering no new complaints today. Tolerated 1st dose of levofloxacin. Toe infection appears to be improving. Creatinine same at 3.4. All Other Systems: Reviewed and Negative Medications Current Inpatient Medications Medications (Trade) Dose Ordered Sig/Kike Route Start Time Stop Time Status Last Admin Dose Admin Heparin Sodium (Porcine) (Heparin Sq 5000 Unit/0.5ml) 5,000 unit Q8 SQ 05/29/17 22:00 06/28/17 21:59 Acetaminophen (Tylenol Tab) 650 mg Q4H PRN PO 05/29/17 18:30 06/28/17 18:29 Al Hydrox/Mg Hydrox/Simethicone (Maalox Max Susp) 15 ml Q4H PRN PO 05/29/17 18:30 06/28/17 18:29 Magnesium Hydroxide (Milk Of Magnesia Susp) 30 ml Q6H PRN PO 05/29/17 18:30 06/28/17 18:29 Polyethylene (Miralax Powder Packet) 17 gm DAILY PRN PO 05/29/17 18:30 06/28/17 18:29 Ondansetron HCl (Zofran Inj) 4 mg Q6H PRN IV 05/29/17 18:30 06/28/17 18:29 Aspirin (Ecotrin Tab) 162 mg HS PO 05/29/17 21:00 06/28/17 20:59 06/03/17 20:39 162 MG Loratadine (Claritin Tab) 10 mg QAM PO 05/30/17 09:00 06/29/17 08:59 06/04/17 08:47 10 MG Lorazepam (Ativan Tab) 1 mg HS PO 05/29/17 21:00 06/28/17 20:59 06/03/17 20:40 1 MG Metoclopramide HCl (Reglan Tab) 10 mg QID PO 05/29/17 21:00 06/28/17 20:59 06/04/17 08:47 10 MG Ondansetron HCl (Zofran Tab) 8 mg TID PO 05/29/17 21:00 06/28/17 20:59 06/04/17 08:47 8 MG Pantoprazole Sodium (Protonix Tab) 40 mg BID PO 05/29/17 21:00 06/28/17 20:59 06/04/17 08:47 40 MG Ranitidine HCl (zANTac TAB) 150 mg BID PO 05/29/17 21:00 06/28/17 20:59 06/04/17 08:47 150 MG Travoprost (Travatan Z) 1 drops HS OP 05/29/17 21:00 06/28/17 20:59 06/03/17 20:40 1 DROPS Cholecalciferol (Vitamin D Tab) 5,000 inter.unit DAILY PO 05/30/17 09:00 06/29/17 08:59 06/04/17 08:47 5,000 INTER.UNIT Miscellaneous Information (Order Awaiting Action) 1 ea QS N/A 05/30/17 00:00 06/29/17 00:00 Albuterol (Ventolin Hfa Inhaler) 2 puffs Q4H PRN INH 05/29/17 18:45 06/28/17 18:44 Bisacodyl (Dulcolax Tab) 10 mg HS PO 05/29/17 21:00 06/28/17 20:59 06/03/17 20:40 10 MG Furosemide (Lasix Tab) 40 mg DAILY PO 05/30/17 09:00 06/29/17 08:59 Future Hold 06/02/17 08:26 40 MG Metoprolol Tartrate (Lopressor Tab) 25 mg BID PO 05/29/17 21:00 06/28/17 20:59 06/04/17 08:47 25 MG Amphetamine Aspartate/ Amphetam Sulf (Amphetamine Aspartate/Amph Sulf/Dextramphet) 10 mg QDL PO 05/30/17 12:30 06/13/17 12:29 06/03/17 12:13 10 MG Miscellaneous Information (Consult Glycemic Management Pharmacy) 1 ea UD PRN N/A 05/29/17 19:02 06/28/17 19:01 Linaclotide (Linzess) 145 mcg QAM PO 05/30/17 09:00 06/29/17 08:59 06/04/17 08:47 145 MCG Non-Formulary Medication (Non-Formulary Patient'S Own Med) 1 ea DAILY PO 05/30/17 09:00 06/29/17 08:59 06/04/17 08:48 1 EA Vortioxetine (Trintellix) 20 mg DAILY PO 05/30/17 09:00 06/29/17 08:59 06/04/17 08:48 20 MG Amphetamine/ Dextroamphetamine (Adderall Xr 30 Mg) 30 mg BID@0800,1200 PO 05/30/17 14:30 06/29/17 14:29 06/03/17 12:13 30 MG Non-Formulary Medication (Patient'S Own Controlled Med) 1 ea BID@0800,1200 PO 05/30/17 14:30 06/13/17 14:29 06/01/17 12:22 1 EA Glucose (Glucose 40% Gel) 15-30 GRAMS 15 GRAMS... UD PRN PO 05/31/17 10:15 06/30/17 10:14 Glucose (Glucose Chew Tab) 4-8 Tablets 4 Tabl... UD PRN PO 05/31/17 10:15 06/30/17 10:14 Dextrose (Dextrose 50% 50ML Syringe) 25-50ML OF 50% DW IV FOR... UD PRN IV 05/31/17 10:15 06/30/17 10:14 Glucagon (Glucagon Inj) 1 mg UD PRN SQ 05/31/17 10:15 06/30/17 10:14 Heparin Sodium (Porcine) (Heparin 10 Unit/ ml 5 ml Flush) 5 ml PRN PRN FLUSH 05/31/17 20:00 06/30/17 19:59 06/02/17 07:28 5 ML Lactobacillus Acidophilus (Floranex Tab) 4 tab TIDM PO 06/01/17 17:45 07/01/17 17:44 06/04/17 08:47 4 TAB Sodium Chloride 1,000 ml @ 50 mls/hr Q20H IV 06/02/17 12:00 07/02/17 11:59 06/04/17 03:43 50 MLS/HR Insulin Human Regular 250 units/ Sodium Chloride 252.5 ml @ 0 mls/hr DAILY@1130 IV 06/03/17 12:45 07/03/17 12:44 Future hold 06/04/17 05:14 1.7 MLS/HR Insulin Aspart (novoLOG ASPART) SLIDING SCALE [facility] 06/03/17 13:00 07/03/17 12:59 06/04/17 08:56 1 UNITS Levofloxacin (Levaquin Tab) 750 mg Q48H PO 06/03/17 15:00 07/15/17 14:59 06/03/17 16:26 750 MG Insulin Detemir (Levemir Flexpen/ FlexTouch) 14 units BID SC 06/04/17 09:00 07/04/17 08:59 06/04/17 08:57 14 UNITS Objective Vital Signs Date Time Temp Pulse Resp B/P (MAP) Pulse Ox O2 Delivery O2 Flow Rate FiO2 06/04/17 08:20 Room Air 06/04/17 07:10 36.8 81 16 147/80 (102) 97 Room Air 06/04/17 00:39 Room Air 06/03/17 22:50 36.2 74 18 148/62 (90) 98 Room Air 06/03/17 15:09 36.6 77 18 154/78 (103) 95 Room Air 06/03/17 15:05 Room Air Physical Exam General Appearance: WD/WN, no apparent distress Eyes: normal inspection, sclerae normal ENT: normal ENT inspection, pharynx normal Neck: supple, no adenopathy, thyroid normal, trachea midline Respiratory/Chest: chest non-tender, lungs clear, normal breath sounds, no respiratory distress Cardiovascular: regular rate, rhythm, no gallop, no murmur Abdomen: normal bowel sounds, non tender, soft, no organomegaly Extremities: non-tender, no calf tenderness Neurologic/Psychiatric: alert, oriented x 3 Skin: normal color, no rash, + pertinent finding (Toe infection appears slightly better all) Lymphatic: no adenopathy Laboratory Results Last 24 Hours Test 06/03/17 10:50 06/03/17 12:25 06/03/17 14:07 06/03/17 15:07 Urine Color YELLOW Urine Appearance CLEAR Urine pH 5.0 Urine Specific [place] 1.021 Urine Protein TRACE Urine Glucose (UA) 1+ Urine Ketones NEG Urine Occult Blood TRACE Urine Nitrite NEG Urine Bilirubin NEG Urine Urobilinogen NEG Urine Leukocyte Esterase NEG Urine WBC (Auto) 1-5 /hpf Urine RBC (Auto) 0-4 /hpf Urine Hyaline Casts (Auto) 1-5 /lpf Urine Epithelial Cells (Auto) 5-10 /lpf Urine Bacteria (Auto) NEG Urine Random Creatinine 66.0 mg/dl Urine Random Total Protein 37.0 mg/dl Urine Protein/Creatinine Ratio 0.6 Bedside Glucose 336 mg/dl 393 mg/dl 416 mg/dl Test 06/03/17 16:08 06/03/17 17:01 06/03/17 18:06 06/03/17 19:13 Bedside Glucose 301 mg/dl 237 mg/dl 131 mg/dl 87 mg/dl Test 06/03/17 19:39 06/03/17 20:21 06/03/17 20:33 06/03/17 22:21 Bedside Glucose 77 mg/dl 93 mg/dl 95 mg/dl 143 mg/dl Test 06/04/17 00:19 06/04/17 02:18 06/04/17 04:56 06/04/17 05:19 Bedside Glucose 172 mg/dl 177 mg/dl 210 mg/dl White Blood Count 6.35 K/uL Red Blood Count 3.06 M/uL Hemoglobin 8.9 g/dL Hematocrit 27.2 % Mean Corpuscular Volume 88.9 fL Mean Corpuscular Hemoglobin 29.1 pg Mean Corpuscular Hemoglobin Concent 32.7 g/dl Platelet Count 245 K/uL Mean Platelet Volume 8.5 fL Neutrophils (%) (Auto) 55.0 % Lymphocytes (%) (Auto) 32.1 % Monocytes (%) (Auto) 7.1 % Eosinophils (%) (Auto) 4.9 % Basophils (%) (Auto) 0.6 % Neutrophils # (Auto) 3.49 K/uL Lymphocytes # (Auto) 2.04 K/uL Monocytes # (Auto) 0.45 K/uL Eosinophils # (Auto) 0.31 K/uL Basophils # (Auto) 0.04 K/uL RDW Standard Deviation 39.9 fL RDW Coefficient of Variation 12.4 % Immature Granulocyte % (Auto) 0.3 % Immature Granulocyte # (Auto) 0.02 K/uL Red Blood Cell Morphology Unremarkable Sodium Level 140 mmol/L Potassium Level 4.6 mmol/L Chloride Level 112 mmol/L Carbon Dioxide Level 20 mmol/L Anion Gap 8.0 mmol/L Blood Urea Nitrogen 88 mg/dl Creatinine 3.40 mg/dl Est Creatinine Clear Calc Drug Dose 21.0 ml/min Estimated GFR () 17.0 Estimated GFR (Non- 14.6 BUN/Creatinine Ratio 25.9 Random Glucose 200 mg/dl Calcium Level 8.9 mg/dl Test 06/04/17 07:23 06/04/17 08:14 Bedside Glucose 153 mg/dl 128 mg/dl Assessment and Plan Probable osteomyelitis of the right great toe in a diabetic female with severe neuropathy. Cultures positive for Pseudomonas, Serratia, and Streptococcus. Patient now with acute kidney injury, which has hopefully stabilized. Patient be continued on levofloxacin, to be adjusted if renal function improves significantly. We will continue to follow.
--- NOTE | 2017-06-04 11:35 | Nephrology Progress Note ---
Nephrology Progress Note Date of Service Jun 04, 2017. Chief Complaint Acute on chronic kidney injury Subjective Mrs. Zhang was seen & examined in her hospital room this morning. Her was present at bedside. Mrs. Zhang reports that she is subjectively improved. She denies fever, flank pain, skin rash or uremic symptoms. She voices no new medical concerns. Review of Systems Constitutional: No fever Cardiovascular: No chest pain Respiratory: No dyspnea at rest Abdomen: No pain, No nausea, No vomiting Genitourinary - Female: No gross hematuria Extremities: No leg edema Integumentary: No rash A complete review of systems was performed. Pertinent positives are noted above. All other systems are negative. Vital Signs Last 8 Hrs Date Time Temp Pulse Resp B/P (MAP) Pulse Ox O2 Delivery O2 Flow Rate FiO2 06/04/17 08:20 Room Air 06/04/17 07:10 36.8 81 16 147/80 (102) 97 Room Air Last Recorded Weight Weight (Kilograms): 81.400 Physical Exam General Appearance: no apparent distress Head: normocephalic, atraumatic Eyes: PERRL, EOMI Neck: no adenopathy Respiratory/Chest: lungs clear Cardiovascular: regular rate, rhythm Abdomen/GI: normal bowel sounds, non tender, soft Extremities/Musculoskelatal: no pedal edema Neurologic/Psych: alert, oriented x 3 Family History FH: CAD (coronary artery disease) FATHER (NM at age 47, CABG x 4 ) Negative for CKD/ESRD Social History Smoking Status: Former smoker Drug Use: none Marital Status: Housing Status: lives with significant other Occupation: disabled . Disabled. Current every day smoker. Laboratory Results Past 24 Hours 06/04/17 05:19 Red Blood Count 3.06, Mean Corpuscular Volume 88.9, Mean Corpuscular Hemoglobin 29.1, Mean Corpuscular Hemoglobin Concent 32.7, Mean Platelet Volume 8.5, Neutrophils (%) (Auto) 55.0, Lymphocytes (%) (Auto) 32.1, Monocytes (%) (Auto) 7.1, Eosinophils (%) (Auto) 4.9, Basophils (%) (Auto) 0.6, Neutrophils # (Auto) 3.49, Lymphocytes # (Auto) 2.04, Monocytes # (Auto) 0.45, Eosinophils # (Auto) 0.31, Basophils # (Auto) 0.04 06/04/17 05:19 Test 06/03/17 12:25 06/03/17 14:07 06/03/17 15:07 06/03/17 16:08 Bedside Glucose 336 mg/dl (70-90) 393 mg/dl (70-90) 416 mg/dl (70-90) 301 mg/dl (70-90) Test 06/03/17 17:01 06/03/17 18:06 06/03/17 19:13 06/03/17 19:39 Bedside Glucose 237 mg/dl (70-90) 131 mg/dl (70-90) 87 mg/dl (70-90) 77 mg/dl (70-90) Test 06/03/17 20:21 06/03/17 20:33 06/03/17 22:21 06/04/17 00:19 Bedside Glucose 93 mg/dl (70-90) 95 mg/dl (70-90) 143 mg/dl (70-90) 172 mg/dl (70-90) Test 06/04/17 02:18 06/04/17 04:56 06/04/17 05:19 06/04/17 07:23 Bedside Glucose 177 mg/dl (70-90) 210 mg/dl (70-90) 153 mg/dl (70-90) White Blood Count 6.35 K/uL (4.8-10.8) Red Blood Count 3.06 M/uL (4.2-5.4) Hemoglobin 8.9 g/dL (12.0-16.0) Hematocrit 27.2 % (37-47) Mean Corpuscular Volume 88.9 fL (80-100) Mean Corpuscular Hemoglobin 29.1 pg (25-34) Mean Corpuscular Hemoglobin Concent 32.7 g/dl (32-36) Platelet Count 245 K/uL (130-400) Mean Platelet Volume 8.5 fL (7.4-10.4) Neutrophils (%) (Auto) 55.0 % Lymphocytes (%) (Auto) 32.1 % Monocytes (%) (Auto) 7.1 % Eosinophils (%) (Auto) 4.9 % Basophils (%) (Auto) 0.6 % Neutrophils # (Auto) 3.49 K/uL (1.4-6.5) Lymphocytes # (Auto) 2.04 K/uL (1.2-3.4) Monocytes # (Auto) 0.45 K/uL (0.11-0.59) Eosinophils # (Auto) 0.31 K/uL (0-0.5) Basophils # (Auto) 0.04 K/uL (0-0.2) RDW Standard Deviation 39.9 fL (36.4-46.3) RDW Coefficient of Variation 12.4 % (11.5-14.5) Immature Granulocyte % (Auto) 0.3 % Immature Granulocyte # (Auto) 0.02 K/uL (0.00-0.02) Red Blood Cell Morphology Unremarkable Anion Gap 8.0 mmol/L (3-11) Est Creatinine Clear Calc Drug Dose 21.0 ml/min Estimated GFR () 17.0 Estimated GFR (Non- 14.6 BUN/Creatinine Ratio 25.9 (10-20) Calcium Level 8.9 mg/dl (8.5-10.1) Test 06/04/17 08:14 06/04/17 09:18 06/04/17 10:15 Bedside Glucose 128 mg/dl (70-90) 208 mg/dl (70-90) 208 mg/dl (70-90) Allergies Coded Allergies: Penicillins (Verified Allergy, Intermediate, BLOTCHY SKIN/ ITCHY, 05/29/17) Vancomycin (Unverified Allergy, Intermediate, SHORTNESS OF BREATH, 05/29/17 ) PATIENT RECEIVED VANCOMYCIN (>10 DOSES) SEP-OCT 2012. THEREFORE LISTED REACTION OF SOB IS UNLIKELY TO BE 2ND ANAPHYLAXIS Clopidogrel (Verified Allergy, Mild, rash, 05/29/17) rash due to Plavix or ertapenem Ertapenem (Verified Allergy, Mild, rash, 05/29/17) rash due to Plavix or ertapenem? Cephalosporins (Verified Allergy, Unknown, CECLOR-UNKNOWN, 05/29/17) Erythromycin (Unverified Allergy, Unknown, FROM H AND P-RASH, 05/29/17) Statins (Unverified Allergy, Unknown, MYALGIA, 05/29/17) Codeine (Verified Adverse Reaction, Unknown, VOMITING, 05/29/17) Nitrofurantoin (Unverified Adverse Reaction, Unknown, vomiting, 05/29/17) Pregabalin (Unverified Adverse Reaction, Unknown, VERY EMOTIONAL CRYING, ) Medications Current Inpatient Medications Medications (Trade) Dose Ordered Sig/Kike Route Start Time Stop Time Status Last Admin Dose Admin Heparin Sodium (Porcine) (Heparin Sq 5000 Unit/0.5ml) 5,000 unit Q8 SQ 05/29/17 22:00 06/28/17 21:59 Acetaminophen (Tylenol Tab) 650 mg Q4H PRN PO 05/29/17 18:30 06/28/17 18:29 Al Hydrox/Mg Hydrox/Simethicone (Maalox Max Susp) 15 ml Q4H PRN PO 05/29/17 18:30 06/28/17 18:29 Magnesium Hydroxide (Milk Of Magnesia Susp) 30 ml Q6H PRN PO 05/29/17 18:30 06/28/17 18:29 Polyethylene (Miralax Powder Packet) 17 gm DAILY PRN PO 05/29/17 18:30 06/28/17 18:29 Ondansetron HCl (Zofran Inj) 4 mg Q6H PRN IV 05/29/17 18:30 06/28/17 18:29 Aspirin (Ecotrin Tab) 162 mg HS PO 05/29/17 21:00 06/28/17 20:59 06/03/17 20:39 162 MG Loratadine (Claritin Tab) 10 mg QAM PO 05/30/17 09:00 06/29/17 08:59 06/04/17 08:47 10 MG Lorazepam (Ativan Tab) 1 mg HS PO 05/29/17 21:00 06/28/17 20:59 06/03/17 20:40 1 MG Metoclopramide HCl (Reglan Tab) 10 mg QID PO 05/29/17 21:00 06/28/17 20:59 06/04/17 08:47 10 MG Ondansetron HCl (Zofran Tab) 8 mg TID PO 05/29/17 21:00 06/28/17 20:59 06/04/17 08:47 8 MG Pantoprazole Sodium (Protonix Tab) 40 mg BID PO 05/29/17 21:00 06/28/17 20:59 06/04/17 08:47 40 MG Ranitidine HCl (zANTac TAB) 150 mg BID PO 05/29/17 21:00 06/28/17 20:59 06/04/17 08:47 150 MG Travoprost (Travatan Z) 1 drops HS OP 05/29/17 21:00 06/28/17 20:59 06/03/17 20:40 1 DROPS Cholecalciferol (Vitamin D Tab) 5,000 inter.unit DAILY PO 05/30/17 09:00 06/29/17 08:59 06/04/17 08:47 5,000 INTER.UNIT Miscellaneous Information (Order Awaiting Action) 1 ea QS N/A 05/30/17 00:00 06/29/17 00:00 Albuterol (Ventolin Hfa Inhaler) 2 puffs Q4H PRN INH 05/29/17 18:45 06/28/17 18:44 Bisacodyl (Dulcolax Tab) 10 mg HS PO 05/29/17 21:00 06/28/17 20:59 06/03/17 20:40 10 MG Furosemide (Lasix Tab) 40 mg DAILY PO 05/30/17 09:00 06/29/17 08:59 Future Hold 06/02/17 08:26 40 MG Metoprolol Tartrate (Lopressor Tab) 25 mg BID PO 05/29/17 21:00 06/28/17 20:59 06/04/17 08:47 25 MG Amphetamine Aspartate/ Amphetam Sulf (Amphetamine Aspartate/Amph Sulf/Dextramphet) 10 mg QDL PO 05/30/17 12:30 06/13/17 12:29 06/03/17 12:13 10 MG Miscellaneous Information (Consult Glycemic Management Pharmacy) 1 ea UD PRN N/A 05/29/17 19:02 06/28/17 19:01 Linaclotide (Linzess) 145 mcg QAM PO 05/30/17 09:00 06/29/17 08:59 06/04/17 08:47 145 MCG Non-Formulary Medication (Non-Formulary Patient'S Own Med) 1 ea DAILY PO 05/30/17 09:00 06/29/17 08:59 06/04/17 08:48 1 EA Vortioxetine (Trintellix) 20 mg DAILY PO 05/30/17 09:00 06/29/17 08:59 06/04/17 08:48 20 MG Amphetamine/ Dextroamphetamine (Adderall Xr 30 Mg) 30 mg BID@0800,1200 PO 05/30/17 14:30 06/29/17 14:29 06/03/17 12:13 30 MG Non-Formulary Medication (Patient'S Own Controlled Med) 1 ea BID@0800,1200 PO 05/30/17 14:30 06/13/17 14:29 06/01/17 12:22 1 EA Glucose (Glucose 40% Gel) 15-30 GRAMS 15 GRAMS... UD PRN PO 05/31/17 10:15 06/30/17 10:14 Glucose (Glucose Chew Tab) 4-8 Tablets 4 Tabl... UD PRN PO 05/31/17 10:15 06/30/17 10:14 Dextrose (Dextrose 50% 50ML Syringe) 25-50ML OF 50% DW IV FOR... UD PRN IV 05/31/17 10:15 06/30/17 10:14 Glucagon (Glucagon Inj) 1 mg UD PRN SQ 05/31/17 10:15 06/30/17 10:14 Heparin Sodium (Porcine) (Heparin 10 Unit/ ml 5 ml Flush) 5 ml PRN PRN FLUSH 05/31/17 20:00 06/30/17 19:59 06/02/17 07:28 5 ML Lactobacillus Acidophilus (Floranex Tab) 4 tab TIDM PO 06/01/17 17:45 07/01/17 17:44 06/04/17 08:47 4 TAB Sodium Chloride 1,000 ml @ 50 mls/hr Q20H IV 06/02/17 12:00 07/02/17 11:59 06/04/17 03:43 50 MLS/HR Insulin Human Regular 250 units/ Sodium Chloride 252.5 ml @ 0 mls/hr DAILY@1130 IV 06/03/17 12:45 07/03/17 12:44 Future hold 06/04/17 09:15 0.8 MLS/HR Insulin Aspart (novoLOG ASPART) SLIDING SCALE [facility] SC 06/03/17 13:00 07/03/17 12:59 06/04/17 08:56 1 UNITS Levofloxacin (Levaquin Tab) 750 mg Q48H PO 06/03/17 15:00 07/15/17 14:59 06/03/17 16:26 750 MG Insulin Detemir (Levemir Flexpen/ FlexTouch) 14 units BID SC 06/04/17 09:00 07/04/17 08:59 06/04/17 08:57 14 UNITS Impression (1) Acute kidney injury (2) Chronic kidney disease (3) Ischemic ulcer diabetic foot Recommendations ACUTE KIDNEY INJURY: -- Urinalysis was without pyuria or cellular casts. UPCR 0.6 -- Renal US report reviewed today: 10.3 cm kidneys without obstruction, stone or mass -- Urine cytology and eosinophils are pending -- ID has transitioned patient from Daptomycin to Levaquin therapy -- Monitor serial PRP, UO CHRONIC KIDNEY DISEASE: -- Baseline creatinine has been 1.8 - 2.1
--- NOTE | 2017-06-04 12:13 | Progress Note ---
Internal Med Progress Note Date of Service: Jun 04, 2017. Provider Documentation: patient seen and examined at bedside. she is sitting on the bed without distress. had recent dressings applied to left feet ulcers. denies fevers or acute pain or gross drainage at site of the feet OBJECTIVE: Exam: General-alert and awake. not in distress ENT-normal hearing Neck-no neck masses supple Lungs- CTABL, no wheezing or crackles Heart-s1 and s2 heard regular rate and rhythm no murmurs Abdomen-soft bowel sounds present non tender no distension Extremities-no erythema draining pressure ulcer on the heel and big toe-in dressing Neuro-alert and awake moves extremities ASSESSMENT & PLAN: This is a 52-year-old female who presents with non-healing foot ulcer. Nonhealing right foot diabetic ulcer. Right heel pressure ulcer is stage III / IV and MRI findings consistent with osteomyelitis of the distal phalanx of the first toe subjacent to the ulcer cx growing pseudomonas,.serratia marcescens,alpha strep not enterococcus s/p picc line has multiple antibiotic allergies has been on IV aztreonam, IV daptomycin, IV ciprofloxacin with subsequent acute kidney injury currently on Levofloxacin PO q48 hours ID and wound care following YVETTE on ckd stage 3 baseline cr 1.8 creatinine today continues to be elevated 3.4 Lasix held IV hydration Renal ultrasound performed on 06/03/17 is normal nephrology consult following: urinalysis w/ microscopy and UPCR, urine for cytology, urine eosinophils History of right-sided heart failure, diastolic dysfunction, chronic, currently stable. holding lasix and on gentle fluids. close monitor for volume overload. Coronary artery disease status post coronary artery bypass grafting. Continue aspirin, beta kathy. Not on statin.stable. History of bipolar and attention deficit disorder, on Trintellix, Ativan and Adderall.stable. History of diabetes. HbA1c levels 9.4. has been on insulin drip, home Lantus plus insulin sliding scale History of gastroesophageal reflux disease. Continue proton pump inhibitor and Zantac. History of hypertension, on metoprolol. follow the blood pressure. History of constipation, on linaclotide History of anemia from chronic kidney disease. History of gastroparesis, on Reglan. History of obstructive sleep apnea, on CPAP. Deep venous thrombosis prophylaxis. Heparin subQ DISPOSITION pt/ot social service for d/c planning Vital Signs: Date Time Temp Pulse Resp B/P (MAP) Pulse Ox O2 Delivery O2 Flow Rate FiO2 06/04/17 08:20 Room Air 06/04/17 07:10 36.8 81 16 147/80 (102) 97 Room Air 06/04/17 00:39 Room Air 06/03/17 22:50 36.2 74 18 148/62 (90) 98 Room Air 06/03/17 15:09 36.6 77 18 154/78 (103) 95 Room Air 06/03/17 15:05 Room Air Lab Results: Results Past 24 Hours Test 06/03/17 14:07 06/03/17 15:07 06/03/17 16:08 06/03/17 17:01 Range/Units Bedside Glucose 393 416 301 237 70-90 mg/dl Test 06/03/17 18:06 06/03/17 19:13 06/03/17 19:39 06/03/17 20:21 Range/Units Bedside Glucose 131 87 77 93 70-90 mg/dl Test 06/03/17 20:33 06/03/17 22:21 06/04/17 00:19 06/04/17 02:18 Range/Units Bedside Glucose 95 143 172 177 70-90 mg/dl Test 06/04/17 04:56 06/04/17 05:19 06/04/17 07:23 06/04/17 08:14 Range/Units Bedside Glucose 210 153 128 70-90 mg/dl White Blood Count 6.35 4.8-10.8 K/uL Red Blood Count 3.06 4.2-5.4 M/uL Hemoglobin 8.9 12.0-16.0 g/dL Hematocrit 27.2 37-47 % Mean Corpuscular Volume 88.9 80-100 fL Mean Corpuscular Hemoglobin 29.1 25-34 pg Mean Corpuscular Hemoglobin Concent 32.7 32-36 g/dl Platelet Count 245 130-400 K/uL Mean Platelet Volume 8.5 7.4-10.4 fL Neutrophils (%) (Auto) 55.0 % Lymphocytes (%) (Auto) 32.1 % Monocytes (%) (Auto) 7.1 % Eosinophils (%) (Auto) 4.9 % Basophils (%) (Auto) 0.6 % Neutrophils # (Auto) 3.49 1.4-6.5 K/uL Lymphocytes # (Auto) 2.04 1.2-3.4 K/uL Monocytes # (Auto) 0.45 0.11-0.59 K/uL Eosinophils # (Auto) 0.31 0-0.5 K/uL Basophils # (Auto) 0.04 0-0.2 K/uL RDW Standard Deviation 39.9 36.4-46.3 fL RDW Coefficient of Variation 12.4 11.5-14.5 % Immature Granulocyte % (Auto) 0.3 % Immature Granulocyte # (Auto) 0.02 0.00-0.02 K/uL Red Blood Cell Morphology Unremarkable Sodium Level 140 136-145 mmol/L Potassium Level 4.6 3.5-5.1 mmol/L Chloride Level 112 98-107 mmol/L Carbon Dioxide Level 20 21-32 mmol/L Anion Gap 8.0 3-11 mmol/L Blood Urea Nitrogen 88 7-18 mg/dl Creatinine 3.40 0.60-1.20 mg/dl Est Creatinine Clear Calc Drug Dose 21.0 ml/min Estimated GFR () 17.0 Estimated GFR (Non- 14.6 BUN/Creatinine Ratio 25.9 10-20 Random Glucose 200 70-99 mg/dl Calcium Level 8.9 8.5-10.1 mg/dl Test 06/04/17 09:18 06/04/17 10:15 06/04/17 12:16 Range/Units Bedside Glucose 208 208 167 70-90 mg/dl
[2017-06-04] MEDS: AMPHETAMINE ASP/SULF/DEXTRAMPH 10 MG TAB PO SCH (12:52)
[2017-06-04 14:55] VITALS: BP 150/76; PULSE 78; TEMP 36.8; O2SAT 97
[2017-06-04 15:03] VITALS: Ht 170.2 cm; Wt 81.4 kg
[2017-06-04] MEDS: BISACODYL 5 MG TABEC PO SCH (20:45)
[2017-06-04] MEDS: LORAZEPAM 1 MG TAB PO SCH (20:45)
[2017-06-04] MEDS: ASPIRIN 81 MG ECTAB PO SCH (20:45)
[2017-06-04] MEDS: TRAVOPROST Z 0.004% OPH SOLN 2.5 ML BTL OP SCH (20:45)
[2017-06-04 23:20] VITALS: BP 146/64; PULSE 76; TEMP 36.6; O2SAT 97
[2017-06-05] MEDS: HEPARIN SOD 5000 UNIT/0.5 ML CARP SQ SCH (06:00)
[2017-06-05 06:27] LABS: BUN/CREATININE RATIO 28.6 (10-20); CALCIUM 8.8 mg/dl (8.5-10.1); CREATININE 2.6 mg/dl (0.60-1.20); POTASSIUM 4.4 mmol/L (3.5-5.1)
[2017-06-05 07:17] VITALS: BP 149/99; PULSE 84; TEMP 36.8; O2SAT 96
[2017-06-05] MEDS: PATADAY~ORDER AWAITING ACTION SCH (08:00)
[2017-06-05] MEDS: ADDERALL 30 MG PO SCH ×2 (08:00→12:00)
[2017-06-05] MEDS: AMPHETAMINE-DEXTROAMPHETAMINE 30 MG CAP PO SCH ×2 (08:00→12:50)
[2017-06-05] MEDS: LACTOBACILLUS ACIDOPHILUS (FLORANEX) TAB PO SCH ×2 (08:03→12:49)
[2017-06-05] MEDS: LINACLOTIDE 145 MCG CAP PO SCH (09:00)
[2017-06-05] MEDS: LORATADINE 10 MG TAB PO SCH (09:23)
[2017-06-05] MEDS: RANITIDINE HCL 150 MG TAB PO SCH (09:24)
[2017-06-05] MEDS: PANTOprazole SOD 40 MG TAB PO SCH (09:24)
[2017-06-05] MEDS: ONDANSETRON 8 MG TAB PO SCH (09:24)
[2017-06-05] MEDS: METOCLOPRAMIDE HCL 10 MG TAB PO SCH ×2 (09:24→12:49)
[2017-06-05] MEDS: METOPROLOL TARTRATE 25 MG TAB PO SCH (09:24)
[2017-06-05] MEDS: CHOLECALCIFEROL 1000 INTER.UNIT TAB PO SCH (09:24)
[2017-06-05] MEDS: VORTIOXETINE HBR 20 MG PO SCH (09:25)
[2017-06-05] MEDS: NON-FORMULARY PATIENT'S OWN MED PO SCH (09:25)
[2017-06-05] MEDS: INSULIN ASPART 100 UNITS/ML 3 ML PEN SC SCH ×2 (09:29→12:57)
[2017-06-05] MEDS: INSULIN DETEMIR FLEXPEN/FLEX TOUCH 100 UNITS/ML 3ML SC SCH (09:30)
--- NOTE | 2017-06-05 09:52 | Pharmacy Progress Note ---
Glycemic Control Progress Note Date of Service Jun 05, 2017. Scope Glycemic Pharmacist consulted for glycemic control to write orders per [facility] inpatient glycemic control protocol. Objective Accuchecks BSG (last 24hrs): Test 06/04/17 10:15 06/04/17 11:20 06/04/17 12:16 06/04/17 13:22 Bedside Glucose 208 mg/dl (70-90) 187 mg/dl (70-90) 167 mg/dl (70-90) 208 mg/dl (70-90) Test 06/04/17 14:13 06/04/17 15:33 06/04/17 16:32 06/04/17 17:34 Bedside Glucose 185 mg/dl (70-90) 136 mg/dl (70-90) 113 mg/dl (70-90) 105 mg/dl (70-90) Test 06/04/17 18:43 06/04/17 19:38 06/04/17 20:29 06/04/17 21:36 Bedside Glucose 171 mg/dl (70-90) 216 mg/dl (70-90) 235 mg/dl (70-90) 223 mg/dl (70-90) Test 06/04/17 22:41 06/04/17 23:21 06/05/17 00:26 06/05/17 01:39 Bedside Glucose 199 mg/dl (70-90) 199 mg/dl (70-90) 193 mg/dl (70-90) 192 mg/dl (70-90) Test 06/05/17 03:26 06/05/17 05:31 06/05/17 05:35 Bedside Glucose 187 mg/dl (70-90) 125 mg/dl (70-90) Random Glucose 118 mg/dl (70-99) HbA1c: Test 05/30/17 06:56 Hemoglobin A1c 9.4 % (4.5-5.6) H Recent Pertinent Medications The patient is currently receiving: * Insulin drip per protocol PLUS Levemir 14 units BID Outpatient Anti-Diabetic Meds Basal Insulin Bolus Insulin Assessment & Plan ASSESSMENT: * See progress note from 05/29/17 for more background info, in short: * Pt receiving SQ basal bolus insulin regimen for hyperglycemia secondary to baseline DM (outpatient regimen is SQ basal bolus), stress/infection * Changes needed to insulin regimen: * Patient's Scr trending back to baseline and BSGs have stabilized on insulin drip * Drip rates are now 0.5-0.8 units/hr and it is safe to transition off of insulin drip * I doubt she will have great glycemic control off insulin drip based on prior admission data but we are approaching discharge and need to start to manage her with SQ only * She is known for snacking which has always made her inpatient glycemic control difficult * Additional notes / comments: A1c increased from 8.6% 05/09/17 to 9.4% on . Unsure of the clinical significance of this as pt has CKD which can alter RBC turnover rate and effect the validity of the A1c. BSGs may have been elevated over the past few weeks secondary to infection and therefore increased A1c. PLAN FOR INPATIENT GLYCEMIC CONTROL: * D/C insulin drip * Continue with Basal insulin * Levemir 14 units SQ BID * Bolus insulin * NovoLog per scale ACHS * Correction Factor: 20 * Carb ratio: 6 * Please note that the plan above was derived based on current level of insulin resistance and hospital stress. These recommendations are appropriate for inpatient admission only. Plan of care upon discharge will need to be reassessed to avoid potential outpatient hypo/hyperglycemia.
--- NOTE | 2017-06-05 09:55 | Nephrology Progress Note ---
Nephrology Progress Note Date of Service Jun 05, 2017. Chief Complaint Acute on chronic kidney injury Subjective Mrs. Zhang was seen & examined in her hospital room this morning. She denies fever, flank pain, rash or uremic symptoms. Mrs. Zhang voices no new medical concerns. She is subjectively improved and hopes to return home soon. Review of Systems Constitutional: No fever Cardiovascular: No chest pain Respiratory: No dyspnea at rest Abdomen: No pain, No nausea, No vomiting Extremities: No leg edema A complete review of systems was performed. Pertinent positives are noted above. All other systems are negative. Vital Signs Last 8 Hrs Date Time Temp Pulse Resp B/P (MAP) Pulse Ox O2 Delivery O2 Flow Rate FiO2 06/05/17 07:17 36.8 84 17 149/99 (116) 96 Room Air Last Recorded Weight Weight (Kilograms): 81.400 Physical Exam General Appearance: no apparent distress Head: normocephalic, atraumatic Eyes: PERRL, EOMI Neck: no adenopathy Respiratory/Chest: lungs clear, normal breath sounds Cardiovascular: regular rate, rhythm, no murmur Abdomen/GI: normal bowel sounds, non tender, soft Extremities/Musculoskelatal: no pedal edema, + pertinent finding (wears an orthopedic boot on the right foot) Neurologic/Psych: alert, oriented x 3 Family History FH: CAD (coronary artery disease) FATHER (CT at age 47, CABG x 4 ) Negative for CKD/ESRD Social History Smoking Status: Former smoker Drug Use: none Marital Status: Housing Status: lives with significant other Occupation: disabled . Disabled. Current every day smoker. Laboratory Results Past 24 Hours 06/05/17 05:35 Test 06/04/17 10:15 06/04/17 11:20 06/04/17 12:16 06/04/17 13:22 Bedside Glucose 208 mg/dl (70-90) 187 mg/dl (70-90) 167 mg/dl (70-90) 208 mg/dl (70-90) Test 06/04/17 14:13 06/04/17 15:33 06/04/17 16:32 06/04/17 17:34 Bedside Glucose 185 mg/dl (70-90) 136 mg/dl (70-90) 113 mg/dl (70-90) 105 mg/dl (70-90) Test 06/04/17 18:43 06/04/17 19:38 06/04/17 20:29 06/04/17 21:36 Bedside Glucose 171 mg/dl (70-90) 216 mg/dl (70-90) 235 mg/dl (70-90) 223 mg/dl (70-90) Test 06/04/17 22:41 06/04/17 23:21 06/05/17 00:26 06/05/17 01:39 Bedside Glucose 199 mg/dl (70-90) 199 mg/dl (70-90) 193 mg/dl (70-90) 192 mg/dl (70-90) Test 06/05/17 03:26 06/05/17 05:31 06/05/17 05:35 Bedside Glucose 187 mg/dl (70-90) 125 mg/dl (70-90) Anion Gap 8.0 mmol/L (3-11) Est Creatinine Clear Calc Drug Dose 27.5 ml/min Estimated GFR () 23.5 Estimated GFR (Non- 20.2 BUN/Creatinine Ratio 28.6 (10-20) Calcium Level 8.8 mg/dl (8.5-10.1) Allergies Coded Allergies: Penicillins (Verified Allergy, Intermediate, BLOTCHY SKIN/ ITCHY, 05/29/17) Vancomycin (Unverified Allergy, Intermediate, SHORTNESS OF BREATH, 05/29/17 ) PATIENT RECEIVED VANCOMYCIN (>10 DOSES) SEP-OCT 2012. THEREFORE LISTED REACTION OF SOB IS UNLIKELY TO BE 2ND ANAPHYLAXIS Clopidogrel (Verified Allergy, Mild, rash, 05/29/17) rash due to Plavix or ertapenem Ertapenem (Verified Allergy, Mild, rash, 05/29/17) rash due to Plavix or ertapenem? Cephalosporins (Verified Allergy, Unknown, CECLOR-UNKNOWN, 05/29/17) Erythromycin (Unverified Allergy, Unknown, FROM H AND P-RASH, 05/29/17) Statins (Unverified Allergy, Unknown, MYALGIA, 05/29/17) Codeine (Verified Adverse Reaction, Unknown, VOMITING, 05/29/17) Nitrofurantoin (Unverified Adverse Reaction, Unknown, vomiting, 05/29/17) Pregabalin (Unverified Adverse Reaction, Unknown, VERY EMOTIONAL CRYING, ) Medications Current Inpatient Medications Medications (Trade) Dose Ordered Sig/Kike Route Start Time Stop Time Status Last Admin Dose Admin Heparin Sodium (Porcine) (Heparin Sq 5000 Unit/0.5ml) 5,000 unit Q8 SQ 05/29/17 22:00 06/28/17 21:59 Acetaminophen (Tylenol Tab) 650 mg Q4H PRN PO 05/29/17 18:30 06/28/17 18:29 Al Hydrox/Mg Hydrox/Simethicone (Maalox Max Susp) 15 ml Q4H PRN PO 05/29/17 18:30 06/28/17 18:29 Magnesium Hydroxide (Milk Of Magnesia Susp) 30 ml Q6H PRN PO 05/29/17 18:30 06/28/17 18:29 Polyethylene (Miralax Powder Packet) 17 gm DAILY PRN PO 05/29/17 18:30 06/28/17 18:29 Ondansetron HCl (Zofran Inj) 4 mg Q6H PRN IV 05/29/17 18:30 06/28/17 18:29 Aspirin (Ecotrin Tab) 162 mg HS PO 05/29/17 21:00 06/28/17 20:59 06/04/17 20:45 162 MG Loratadine (Claritin Tab) 10 mg QAM PO 05/30/17 09:00 06/29/17 08:59 06/05/17 09:23 10 MG Lorazepam (Ativan Tab) 1 mg HS PO 05/29/17 21:00 06/28/17 20:59 06/04/17 20:45 1 MG Metoclopramide HCl (Reglan Tab) 10 mg QID PO 05/29/17 21:00 06/28/17 20:59 06/05/17 09:24 10 MG Ondansetron HCl (Zofran Tab) 8 mg TID PO 05/29/17 21:00 06/28/17 20:59 06/05/17 09:24 8 MG Pantoprazole Sodium (Protonix Tab) 40 mg BID PO 05/29/17 21:00 06/28/17 20:59 06/05/17 09:24 40 MG Ranitidine HCl (zANTac TAB) 150 mg BID PO 05/29/17 21:00 06/28/17 20:59 06/05/17 09:24 150 MG Travoprost (Travatan Z) 1 drops HS OP 05/29/17 21:00 06/28/17 20:59 06/04/17 20:45 1 DROPS Cholecalciferol (Vitamin D Tab) 5,000 inter.unit DAILY PO 05/30/17 09:00 06/29/17 08:59 06/05/17 09:24 5,000 INTER.UNIT Miscellaneous Information (Order Awaiting Action) 1 ea QS N/A 05/30/17 00:00 06/29/17 00:00 Albuterol (Ventolin Hfa Inhaler) 2 puffs Q4H PRN INH 05/29/17 18:45 06/28/17 18:44 Bisacodyl (Dulcolax Tab) 10 mg HS PO 05/29/17 21:00 06/28/17 20:59 06/04/17 20:45 10 MG Furosemide (Lasix Tab) 40 mg DAILY PO 05/30/17 09:00 06/29/17 08:59 Future Hold 06/02/17 08:26 40 MG Metoprolol Tartrate (Lopressor Tab) 25 mg BID PO 05/29/17 21:00 06/28/17 20:59 06/05/17 09:24 25 MG Amphetamine Aspartate/ Amphetam Sulf (Amphetamine Aspartate/Amph Sulf/Dextramphet) 10 mg QDL PO 05/30/17 12:30 06/13/17 12:29 06/04/17 12:52 10 MG Miscellaneous Information (Consult Glycemic Management Pharmacy) 1 ea UD PRN N/A 05/29/17 19:02 06/28/17 19:01 Linaclotide (Linzess) 145 mcg QAM PO 05/30/17 09:00 06/29/17 08:59 06/04/17 08:47 145 MCG Non-Formulary Medication (Non-Formulary Patient'S Own Med) 1 ea DAILY PO 05/30/17 09:00 06/29/17 08:59 06/05/17 09:25 1 EA Vortioxetine (Trintellix) 20 mg DAILY PO 05/30/17 09:00 06/29/17 08:59 06/05/17 09:25 20 MG Amphetamine/ Dextroamphetamine (Adderall Xr 30 Mg) 30 mg BID@0800,1200 PO 05/30/17 14:30 06/29/17 14:29 06/04/17 12:52 30 MG Non-Formulary Medication (Patient'S Own Controlled Med) 1 ea BID@0800,1200 PO 05/30/17 14:30 06/13/17 14:29 06/01/17 12:22 1 EA Glucose (Glucose 40% Gel) 15-30 GRAMS 15 GRAMS... UD PRN PO 05/31/17 10:15 06/30/17 10:14 Glucose (Glucose Chew Tab) 4-8 Tablets 4 Tabl... UD PRN PO 05/31/17 10:15 06/30/17 10:14 Dextrose (Dextrose 50% 50ML Syringe) 25-50ML OF 50% DW IV FOR... UD PRN IV 05/31/17 10:15 06/30/17 10:14 06/05/17 08:00 25 ML Glucagon (Glucagon Inj) 1 mg UD PRN SQ 05/31/17 10:15 06/30/17 10:14 Heparin Sodium (Porcine) (Heparin 10 Unit/ ml 5 ml Flush) 5 ml PRN PRN FLUSH 05/31/17 20:00 06/30/17 19:59 06/02/17 07:28 5 ML Lactobacillus Acidophilus (Floranex Tab) 4 tab TIDM PO 06/01/17 17:45 07/01/17 17:44 06/05/17 08:03 4 TAB Sodium Chloride 1,000 ml @ 50 mls/hr Q20H IV 06/02/17 12:00 07/02/17 11:59 06/04/17 23:41 50 MLS/HR Levofloxacin (Levaquin Tab) 750 mg Q48H PO 06/03/17 15:00 07/15/17 14:59 06/03/17 16:26 750 MG Insulin Detemir (Levemir Flexpen/ FlexTouch) 14 units BID SC 06/04/17 09:00 07/04/17 08:59 06/05/17 09:30 14 UNITS Insulin Aspart (novoLOG ASPART) SLIDING SCALE ACHS SC 06/05/17 08:45 07/05/17 08:44 06/05/17 09:29 3 UNITS Impression (1) Acute kidney injury (2) Chronic kidney disease (3) Ischemic ulcer diabetic foot Recommendations ACUTE KIDNEY INJURY: -- Urinalysis was without pyuria or cellular casts. UPCR 0.6 -- Renal US report: 10.3 cm kidneys without obstruction, stone or mass -- Urine eosinophils were negative -- ID has transitioned patient from Daptomycin to Levaquin therapy -- Kidney function is trending toward baseline. Volume status and electrolyte balance are currently acceptable. I provided patient with education on a weight based diuretic regimen. We discussed a low sodium diet. I have asked dietitian to provide patient with educational materials on low sodium low potassium diet. OK to discharge to home from Nephrology perspective. I have placed order in [facility] EMR to have my engineer technical staff contact patient and schedule follow up Nephrology OV in 7 - 10 days w/ Dr. Osborne. I have placed order in [facility] EMR to have blood work completed 24 hours prior to OV. CHRONIC KIDNEY DISEASE: -- Baseline creatinine has been 1.8 - 2.1
--- NOTE | 2017-06-05 10:09 | Infectious Disease Progress Nt ---
Progress Note Date of Service Jun 05, 2017. Subjective Pt evaluation today including: conversation w/ patient, conversation w/ family , physical exam, chart review, lab review, review of studies, conversation w/ mobile sales consultant, review of inpatient medication list Patient offering no new complaints today. Remains afebrile. Toe improving. Tolerating levofloxacin without apparent difficulty. Creatinine improving. All Other Systems: Reviewed and Negative Medications Current Inpatient Medications Medications (Trade) Dose Ordered Sig/Kike Route Start Time Stop Time Status Last Admin Dose Admin Heparin Sodium (Porcine) (Heparin Sq 5000 Unit/0.5ml) 5,000 unit Q8 SQ 05/29/17 22:00 06/28/17 21:59 Acetaminophen (Tylenol Tab) 650 mg Q4H PRN PO 05/29/17 18:30 06/28/17 18:29 Al Hydrox/Mg Hydrox/Simethicone (Maalox Max Susp) 15 ml Q4H PRN PO 05/29/17 18:30 06/28/17 18:29 Magnesium Hydroxide (Milk Of Magnesia Susp) 30 ml Q6H PRN PO 05/29/17 18:30 06/28/17 18:29 Polyethylene (Miralax Powder Packet) 17 gm DAILY PRN PO 05/29/17 18:30 06/28/17 18:29 Ondansetron HCl (Zofran Inj) 4 mg Q6H PRN IV 05/29/17 18:30 06/28/17 18:29 Aspirin (Ecotrin Tab) 162 mg HS PO 05/29/17 21:00 06/28/17 20:59 06/04/17 20:45 162 MG Loratadine (Claritin Tab) 10 mg QAM PO 05/30/17 09:00 06/29/17 08:59 06/05/17 09:23 10 MG Lorazepam (Ativan Tab) 1 mg HS PO 05/29/17 21:00 06/28/17 20:59 06/04/17 20:45 1 MG Metoclopramide HCl (Reglan Tab) 10 mg QID PO 05/29/17 21:00 06/28/17 20:59 06/05/17 09:24 10 MG Ondansetron HCl (Zofran Tab) 8 mg TID PO 05/29/17 21:00 06/28/17 20:59 06/05/17 09:24 8 MG Pantoprazole Sodium (Protonix Tab) 40 mg BID PO 05/29/17 21:00 06/28/17 20:59 06/05/17 09:24 40 MG Ranitidine HCl (zANTac TAB) 150 mg BID PO 05/29/17 21:00 06/28/17 20:59 06/05/17 09:24 150 MG Travoprost (Travatan Z) 1 drops HS OP 05/29/17 21:00 06/28/17 20:59 06/04/17 20:45 1 DROPS Cholecalciferol (Vitamin D Tab) 5,000 inter.unit DAILY PO 05/30/17 09:00 06/29/17 08:59 06/05/17 09:24 5,000 INTER.UNIT Miscellaneous Information (Order Awaiting Action) 1 ea QS N/A 05/30/17 00:00 06/29/17 00:00 Albuterol (Ventolin Hfa Inhaler) 2 puffs Q4H PRN INH 05/29/17 18:45 06/28/17 18:44 Bisacodyl (Dulcolax Tab) 10 mg HS PO 05/29/17 21:00 06/28/17 20:59 06/04/17 20:45 10 MG Furosemide (Lasix Tab) 40 mg DAILY PO 05/30/17 09:00 06/29/17 08:59 Future Hold 06/02/17 08:26 40 MG Metoprolol Tartrate (Lopressor Tab) 25 mg BID PO 05/29/17 21:00 06/28/17 20:59 06/05/17 09:24 25 MG Amphetamine Aspartate/ Amphetam Sulf (Amphetamine Aspartate/Amph Sulf/Dextramphet) 10 mg QDL PO 05/30/17 12:30 06/13/17 12:29 06/04/17 12:52 10 MG Miscellaneous Information (Consult Glycemic Management Pharmacy) 1 ea UD PRN N/A 05/29/17 19:02 06/28/17 19:01 Linaclotide (Linzess) 145 mcg QAM PO 05/30/17 09:00 06/29/17 08:59 06/04/17 08:47 145 MCG Non-Formulary Medication (Non-Formulary Patient'S Own Med) 1 ea DAILY PO 05/30/17 09:00 06/29/17 08:59 06/05/17 09:25 1 EA Vortioxetine (Trintellix) 20 mg DAILY PO 05/30/17 09:00 06/29/17 08:59 06/05/17 09:25 20 MG Amphetamine/ Dextroamphetamine (Adderall Xr 30 Mg) 30 mg BID@0800,1200 PO 05/30/17 14:30 06/29/17 14:29 06/04/17 12:52 30 MG Non-Formulary Medication (Patient'S Own Controlled Med) 1 ea BID@0800,1200 PO 05/30/17 14:30 06/13/17 14:29 06/01/17 12:22 1 EA Glucose (Glucose 40% Gel) 15-30 GRAMS 15 GRAMS... UD PRN PO 05/31/17 10:15 06/30/17 10:14 Glucose (Glucose Chew Tab) 4-8 Tablets 4 Tabl... UD PRN PO 05/31/17 10:15 06/30/17 10:14 Dextrose (Dextrose 50% 50ML Syringe) 25-50ML OF 50% DW IV FOR... UD PRN IV 05/31/17 10:15 06/30/17 10:14 06/05/17 08:00 25 ML Glucagon (Glucagon Inj) 1 mg UD PRN SQ 05/31/17 10:15 06/30/17 10:14 Heparin Sodium (Porcine) (Heparin 10 Unit/ ml 5 ml Flush) 5 ml PRN PRN FLUSH 05/31/17 20:00 06/30/17 19:59 06/02/17 07:28 5 ML Lactobacillus Acidophilus (Floranex Tab) 4 tab TIDM PO 06/01/17 17:45 07/01/17 17:44 06/05/17 08:03 4 TAB Sodium Chloride 1,000 ml @ 50 mls/hr Q20H IV 06/02/17 12:00 07/02/17 11:59 06/04/17 23:41 50 MLS/HR Levofloxacin (Levaquin Tab) 750 mg Q48H PO 06/03/17 15:00 07/15/17 14:59 06/03/17 16:26 750 MG Insulin Detemir (Levemir Flexpen/ FlexTouch) 14 units BID SC 06/04/17 09:00 07/04/17 08:59 06/05/17 09:30 14 UNITS Insulin Aspart (novoLOG ASPART) SLIDING SCALE ACHS VT 06/05/17 08:45 07/05/17 08:44 06/05/17 09:29 3 UNITS Objective Vital Signs Date Time Temp Pulse Resp B/P (MAP) Pulse Ox O2 Delivery O2 Flow Rate FiO2 06/05/17 07:30 Room Air 06/05/17 07:17 36.8 84 17 149/99 (116) 96 Room Air 06/04/17 23:30 Room Air 06/04/17 23:20 36.6 76 16 146/64 (91) 97 Room Air 06/04/17 16:15 Room Air 06/04/17 14:55 36.8 78 18 150/76 (100) 97 Room Air Physical Exam General Appearance: WD/WN, no apparent distress Eyes: normal inspection, EOMI, sclerae normal ENT: normal ENT inspection, pharynx normal Neck: supple, no adenopathy, thyroid normal, trachea midline Respiratory/Chest: chest non-tender, lungs clear, normal breath sounds, no respiratory distress Cardiovascular: regular rate, rhythm, no gallop, no murmur Abdomen: normal bowel sounds, non tender, soft, no organomegaly Extremities: non-tender, no calf tenderness Neurologic/Psychiatric: alert, oriented x 3 Skin: normal color, no rash, + pertinent finding (Right great toe slightly better) Lymphatic: no adenopathy Laboratory Results Last 24 Hours Test 06/04/17 10:15 06/04/17 11:20 06/04/17 12:16 06/04/17 13:22 Bedside Glucose 208 mg/dl 187 mg/dl 167 mg/dl 208 mg/dl Test 06/04/17 14:13 06/04/17 15:33 06/04/17 16:32 06/04/17 17:34 Bedside Glucose 185 mg/dl 136 mg/dl 113 mg/dl 105 mg/dl Test 06/04/17 18:43 06/04/17 19:38 06/04/17 20:29 06/04/17 21:36 Bedside Glucose 171 mg/dl 216 mg/dl 235 mg/dl 223 mg/dl Test 06/04/17 22:41 06/04/17 23:21 06/05/17 00:26 06/05/17 01:39 Bedside Glucose 199 mg/dl 199 mg/dl 193 mg/dl 192 mg/dl Test 06/05/17 03:26 06/05/17 05:31 06/05/17 05:35 Bedside Glucose 187 mg/dl 125 mg/dl Sodium Level 145 mmol/L Potassium Level 4.4 mmol/L Chloride Level 117 mmol/L Carbon Dioxide Level 20 mmol/L Anion Gap 8.0 mmol/L Blood Urea Nitrogen 74 mg/dl Creatinine 2.60 mg/dl Est Creatinine Clear Calc Drug Dose 27.5 ml/min Estimated GFR () 23.5 Estimated GFR (Non- 20.2 BUN/Creatinine Ratio 28.6 Random Glucose 118 mg/dl Calcium Level 8.8 mg/dl Assessment and Plan Probable osteomyelitis of the right great toe in a diabetic female with severe neuropathy. Cultures positive for Pseudomonas, Serratia, and Streptococcus. Patient now with acute kidney injury, which has now improved. Would continue patient on levofloxacin, and will need 6-8 weeks of antibiotic therapy minimum. Would like to see in 2 weeks at the wound Care Center.
--- NOTE | 2017-06-05 12:43 | Progress Note ---
Internal Med Progress Note Date of Service: Jun 05, 2017. Provider Documentation: patient seen and examined at bedside. denies fevers or acute pain or gross drainage at site of the feet OBJECTIVE: Exam: General-alert and awake. not in distress ENT-normal hearing Neck-no neck masses supple Lungs- CTABL, no wheezing or crackles Heart-s1 and s2 heard regular rate and rhythm no murmurs Abdomen-soft bowel sounds present non tender no distension Extremities-ulcer on the heel and big toe-in dressing Neuro-alert and awake moves extremities ASSESSMENT & PLAN: This is a 52-year-old female who presents with non-healing foot ulcer. Nonhealing right foot diabetic ulcer. Right heel pressure ulcer is stage III / IV and MRI findings consistent with osteomyelitis of the distal phalanx of the first toe subjacent to the ulcer cx growing pseudomonas,.serratia marcescens,alpha strep not enterococcus s/p picc line has multiple antibiotic allergies has been on IV aztreonam, IV daptomycin, IV ciprofloxacin with subsequent acute kidney injury currently on Levofloxacin PO q48 hours ID and wound care following YVETTE on ckd stage 3 with downtrending creatinine Renal ultrasound performed on 06/03/17 is normal History of right-sided heart failure, diastolic dysfunction, chronic Coronary artery disease status post coronary artery bypass grafting. Continue aspirin, beta kathy. Not on statin. History of bipolar and attention deficit disorder, on Trintellix, Ativan and Adderall. History of diabetes. HbA1c levels 9.4. has been on insulin drip in the hospital. continue Lantus plus insulin sliding scale at home History of gastroesophageal reflux disease. Continue proton pump inhibitor and Zantac. History of hypertension, on metoprolol. History of constipation, on linaclotide History of anemia from chronic kidney disease. History of gastroparesis History of obstructive sleep apnea, on CPAP. Deep venous thrombosis prophylaxis. Heparin subQ DISPOSITION continue on levofloxacin for 6 to 8 weeks of antibiotic therapy to treat osteomyelitis of right toe discharge to home with follow up to see primary care doctor Dr. Magdaleno on 06/10 at 10:55 AM Follow up with wound clinic on 06/12/17 at 2 PM for the foot ulcers Patient was also followed by nephrology due to acute kidney injury: patient to be contacted by nephrology staffing branch manager to schedule follow up Nephrology OV in 7 to 10 days w/ Dr. Osborne. Vital Signs: Date Time Temp Pulse Resp B/P (MAP) Pulse Ox O2 Delivery O2 Flow Rate FiO2 06/05/17 07:30 Room Air 06/05/17 07:17 36.8 84 17 149/99 (116) 96 Room Air 06/04/17 23:30 Room Air 06/04/17 23:20 36.6 76 16 146/64 (91) 97 Room Air 06/04/17 16:15 Room Air 06/04/17 14:55 36.8 78 18 150/76 (100) 97 Room Air Lab Results: Results Past 24 Hours Test 06/04/17 13:22 06/04/17 14:13 06/04/17 15:33 06/04/17 16:32 Range/Units Bedside Glucose 208 185 136 113 70-90 mg/dl Test 06/04/17 17:34 06/04/17 18:43 06/04/17 19:38 06/04/17 20:29 Range/Units Bedside Glucose 105 171 216 235 70-90 mg/dl Test 06/04/17 21:36 06/04/17 22:41 06/04/17 23:21 06/05/17 00:26 Range/Units Bedside Glucose 223 199 199 193 70-90 mg/dl Test 06/05/17 01:39 06/05/17 03:26 06/05/17 05:31 06/05/17 05:35 Range/Units Bedside Glucose 192 187 125 70-90 mg/dl Sodium Level 145 136-145 mmol/L Potassium Level 4.4 3.5-5.1 mmol/L Chloride Level 117 98-107 mmol/L Carbon Dioxide Level 20 21-32 mmol/L Anion Gap 8.0 3-11 mmol/L Blood Urea Nitrogen 74 7-18 mg/dl Creatinine 2.60 0.60-1.20 mg/dl Est Creatinine Clear Calc Drug Dose 27.5 ml/min Estimated GFR () 23.5 Estimated GFR (Non- 20.2 BUN/Creatinine Ratio 28.6 10-20 Random Glucose 118 70-99 mg/dl Calcium Level 8.8 8.5-10.1 mg/dl Test 06/05/17 07:31 06/05/17 08:17 06/05/17 08:31 06/05/17 11:57 Range/Units Bedside Glucose 83 110 87 177 70-90 mg/dl
[2017-06-05] MEDS: AMPHETAMINE ASP/SULF/DEXTRAMPH 10 MG TAB PO SCH (12:49)
[2017-06-05] MEDS ORDERED: LVQ750 PO (12:52)
--- NOTE | 2017-06-05 12:53 | Discharge Instructions ---
Discharge Instructions Date of Service Jun 05, 2017. Admission Reason for Admission: Osteomyelitis Discharge Discharge Diagnosis / Problem: osteomyelitis of right toe/diabetes/ hyperglycemia/ulcers of right feet/YVETTE Discharge Goals Goal(s): Decrease discomfort, Improve function, Improve disease control Activity Recommendations Activity Limitations: per Instructions/Follow-up section Lifting Limitations: until after follow-up appointment Exercise/Sports Limitations: until after follow-up appointment Shower/Bathe: no limitations . Instructions / Follow-Up Instructions / Follow-Up DISPOSITION continue on levofloxacin for 6 to 8 weeks of antibiotic therapy to treat osteomyelitis of right toe discharge to home with follow up to see primary care doctor Dr. Magdaleno on 06/10 at 10:55 AM Follow up with wound clinic on 06/12/17 at 2 PM for the foot ulcers Patient was also followed by nephrology due to acute kidney injury: patient to be contacted by nephrology staff toxicologist to schedule follow up Nephrology OV in 7 to 10 days w/ Dr. Osborne. Current Hospital Diet Patient's current hospital diet: AHA Diet (Heart Healthy), Diabetes Type 2 Diet Discharge Diet Recommended Diet: Diabetes Type 1 Diet Pending Studies Studies pending at discharge: no Laboratory Results 06/04/17 05:19 Red Blood Count 3.06, Mean Corpuscular Volume 88.9, Mean Corpuscular Hemoglobin 29.1, Mean Corpuscular Hemoglobin Concent 32.7, Mean Platelet Volume 8.5, Neutrophils (%) (Auto) 55.0, Lymphocytes (%) (Auto) 32.1, Monocytes (%) (Auto) 7.1, Eosinophils (%) (Auto) 4.9, Basophils (%) (Auto) 0.6, Neutrophils # (Auto) 3.49, Lymphocytes # (Auto) 2.04, Monocytes # (Auto) 0.45, Eosinophils # (Auto) 0.31, Basophils # (Auto) 0.04 06/05/17 05:35 Test 05/29/17 16:07 05/30/17 06:56 06/01/17 05:53 06/03/17 07:45 Bedside Lactic Acid Venous 1.61 mmol/L (0.90-1.70) Estimated Average Glucose 223 mg/dl Hemoglobin A1c 9.4 % (4.5-5.6) Magnesium Level 2.2 mg/dl (1.8-2.4) Total Bilirubin 0.2 mg/dl (0.2-1) Aspartate Amino Transf (AST/SGOT) 16 U/L (15-37) Alanine Aminotransferase (ALT/SGPT) 21 U/L (12-78) Alkaline Phosphatase 96 U/L (45-117) Total Creatine Kinase 70 U/L (26-192) Total Protein 6.2 gm/dl (6.4-8.2) Albumin 2.9 gm/dl (3.4-5.0) Globulin 3.3 gm/dl (2.5-4.0) Albumin/Globulin Ratio 0.9 (0.9-2) Test 06/03/17 10:50 06/04/17 05:19 06/05/17 05:35 06/05/17 11:57 Urine Color YELLOW Urine Appearance CLEAR (CLEAR) Urine pH 5.0 (4.5-7.5) Urine Specific [place] 1.021 (1.000-1.030) Urine Protein TRACE (NEG) Urine Glucose (UA) 1+ (NEG) Urine Ketones NEG (NEG) Urine Occult Blood TRACE (NEG) Urine Nitrite NEG (NEG) Urine Bilirubin NEG (NEG) Urine Urobilinogen NEG (NEG) Urine Leukocyte Esterase NEG (NEG) Urine WBC (Auto) 1-5 /hpf (0-5) Urine RBC (Auto) 0-4 /hpf (0-4) Urine Hyaline Casts (Auto) 1-5 /lpf (0-5) Urine Epithelial Cells (Auto) 5-10 /lpf (0-5) Urine Bacteria (Auto) NEG (NEG) Urine Random Creatinine 66.0 mg/dl Urine Random Total Protein 37.0 mg/dl (0-11.9) Urine Protein/Creatinine Ratio 0.6 (0-0.2) White Blood Count 6.35 K/uL (4.8-10.8) Red Blood Count 3.06 M/uL (4.2-5.4) Hemoglobin 8.9 g/dL (12.0-16.0) Hematocrit 27.2 % (37-47) Mean Corpuscular Volume 88.9 fL (80-100) Mean Corpuscular Hemoglobin 29.1 pg (25-34) Mean Corpuscular Hemoglobin Concent 32.7 g/dl (32-36) Platelet Count 245 K/uL (130-400) Mean Platelet Volume 8.5 fL (7.4-10.4) Neutrophils (%) (Auto) 55.0 % Lymphocytes (%) (Auto) 32.1 % Monocytes (%) (Auto) 7.1 % Eosinophils (%) (Auto) 4.9 % Basophils (%) (Auto) 0.6 % Neutrophils # (Auto) 3.49 K/uL (1.4-6.5) Lymphocytes # (Auto) 2.04 K/uL (1.2-3.4) Monocytes # (Auto) 0.45 K/uL (0.11-0.59) Eosinophils # (Auto) 0.31 K/uL (0-0.5) Basophils # (Auto) 0.04 K/uL (0-0.2) RDW Standard Deviation 39.9 fL (36.4-46.3) RDW Coefficient of Variation 12.4 % (11.5-14.5) Immature Granulocyte % (Auto) 0.3 % Immature Granulocyte # (Auto) 0.02 K/uL (0.00-0.02) Red Blood Cell Morphology Unremarkable Anion Gap 8.0 mmol/L (3-11) Est Creatinine Clear Calc Drug Dose 27.5 ml/min Estimated GFR () 23.5 Estimated GFR (Non- 20.2 BUN/Creatinine Ratio 28.6 (10-20) Calcium Level 8.8 mg/dl (8.5-10.1) Bedside Glucose 177 mg/dl (70-90) Date/Time Source Procedure Growth Status 05/29/17 18:02 Blood Blood Culture - Final NO GROWTH Complete 05/29/17 15:15 Drainage - Surface Toe Right 1 Gram Stain - Final Complete 05/29/17 15:15 Wound Culture - Final Pseudomonas Aeruginosa Klebsiella Oxytoca Complete Hemoglobin A1c Test 05/30/17 06:56 Range/Units Estimated Average Glucose 223 mg/dl Hemoglobin A1c 9.4 H 4.5-5.6 % Medical Emergencies . Who to Call and When: Medical Emergencies: If at any time you feel your situation is an emergency, please call 911 immediately. . Non-Emergent Contact Non-Emergency issues call your: Primary Care Provider Call Non-Emergent contact if: you have a fever, your pain is not controlled, wound has increased drainage . . "Provider Documentation" section prepared by Nico Dominguez. . VTE Core Measure Inpt VTE Proph given/why not?: Unfractionated heparin SQ
--- NOTE | 2017-06-05 12:56 | Discharge Summary ---
Discharge Summary Date of Service Jun 05, 2017. Discharge Summary Admission Date: May 29, 2017 at 18:39 Discharge Date: Jun 05, 2017 Discharge Disposition: Home Principal Diagnosis: right toe osteomyelitis, diabetes, hyperglycemia, right feet ulcers, acute kidney injury Procedures: R LOWER EXT NONJOINT W/O At the distal phalanx of the first toe, extensive T2 hyperintense, T1 hypointense abnormal marrow signal intensity noted extending from the tuft to the proximal metadiaphysis. The base of the distal phalanx maintains normal T1 hyperintense marrow signal. No associated fluid in the interphalangeal joint of the first toe. The proximal phalanx of the first toe demonstrates normal marrow signal intensity. An associated defect of the cutis at the distal first toe noted with subcutaneous edema. Postsurgical changes of the fifth metatarsal. Mild diffuse subcutaneous edema in the forefoot. Increased signal intensity of the musculature in the superficial flexor compartment may be reactive. The calcaneus was not included within the [id number] for assessment of the reported heel ulcer. No fluid collection is evident allowing for noncontrast technique. IMPRESSION: Findings consistent with osteomyelitis of the distal phalanx of the first toe subjacent to the ulcer. This does not appear to involve the interphalangeal joint. Consultations: infectious disease, nephrology, wound care Medication Reconciliation New Medications: Levofloxacin (Levofloxacin) 750 Mg Tab 750 MG PO Q48H for 56 Days, #28 TAB Continued Medications: Albuterol Hfa (Ventolin Hfa) 200 Puffs/87971 Mcg Aers 2 PUFFS INH Q4 PRN for SOB/Wheezing, #1 INHALER Amphetamine-Dextroamphetamine 10MG (Adderall 10MG) 1 Tab Tab 10 MG PO DAILY, #30 TAB Amphetamine-Dextroamphetamine 30MG (Adderall Xr 30MG) 1 Cap Cap 30 MG PO DAILY for 30 Days, CAP Aspirin (Aspirin Ec) 81 Mg Tab 162 MG PO HS Biotin (Biotin 5000) 5 Mg Cap 5 MG PO QPM Bisacodyl (Bisacodyl EC) 5 Mg Tabec 10 MG PO HS, #30 Cholecalciferol (D-5000) 5,000 Unit Tab 5000 UNITS PO DAILY for 30 Days, TAB 3 Refills Cranberry (Vaccinium Macrocarp (Cranberry Extract) 250 Mg Tab 500 MG PO QAM Furosemide (Lasix) 40 Mg Tab 40 MG PO DAILY, #30 TAB Insulin Aspart (Novolog) 100 Units/Ml Inj 1 UNIT SC AC per sliding scale, 1:15 for carbs coverage, max 15 units; also uses correction factor 70mg/dL/unit for elevatations above 130 Insulin Detemir (Levemir) 100 Units/Ml Inj 14 UNITS SC BID, #1 Linaclotide (Linzess) 145 Mcg Cap 145 MCG PO QAM Loratadine (Claritin) 10 Mg Tab 10 MG PO QAM, TAB Lorazepam (Lorazepam) 1 Mg Tab 1 MG PO HS Metoclopramide Hcl (Reglan) 10 Mg Tab 10 MG PO QID, TAB Metoprolol Tartrate (Lopressor) (Lopressor) 25 Mg Tab 1 TAB PO BID, #30 TAB Olopatadine Hydrochloride (Pataday) 37 Drops/2.5 Ml Soln 1 DROPS OPB DAILY PRN for prn, ML Ondansetron (Ondansetron HCl) 8 Mg Tab 8 MG PO TID Pantoprazole (Protonix) 40 Mg Tab 40 MG PO BID Ranitidine (Zantac) 150 Mg Tab 150 MG PO BID, TAB Thyroid (Wp Thyroid) 65 Mg Tab 1 TAB PO DAILY Travoprost (Travatan Z) 0.004 % Rodney 1 DROPS OP HS, #1 BTL 5 Refills Vortioxetine HBr (Trintellix) 20 Mg Tab 1 TAB PO DAILY Admission Information HPI (per Admitting provider): HISTORY OF PRESENT ILLNESS: This is a 52-year-old female with past medical history significant for hypertension, diabetes not well-controlled, CAD status post CABG, chronic kidney disease stage III, diabetic retinopathy, diabetic peripheral neuropathy, depression, gastroparesis, chronic right heart failure, hypothyroidism, sleep apnea, who presents with nonhealing right foot ulcers. The patient was here in the first week of May with CHF which got resolved and discharged home. At that time, she was also noticed to have right foot, right heel pressure ulcer, not infected at that time and she follows with the wound care, but since last few days, she also noticed ulcer on the right big toe which is new and also right heel ulcer is draining brown color and is foul smelling. She uses braces for legs because of neuropathy. Did not notice any pain. Denies any fever or chills. Otherwise, she is doing okay. She ambulates with help of cane. Denies any headaches, no dizziness, no blurred visions. No runny nose, or drainage from the ears. No sore throat. No difficulty swallowing. No chest pain, occasional shortness of breath, no cough, no nausea or vomiting, no abdominal pain. Normal bowel and bladder movements. No blood in the urine. No blood in the stools. No rash. No lower extremity edema. ALLERGIES: TO CEPHALOSPORINS, PLAVIX, CODEINE ERTAPENEM, ERYTHROMYCIN, NITROFURANTOIN, PENICILLIN, PREGABALIN, STATINS AND VANCOMYCIN. PAST MEDICAL HISTORY: As mentioned above. PAST SURGICAL HISTORY: Right breast biopsy, CABG, , colonoscopy with polypectomy, left heart catheterization, EGD with biopsy, repair of the nasal septum, sinus surgery. MEDICATIONS: The patient is on Lasix 40 mg p.o. daily, Trintellix 20 mg p.o. daily, Levemir 13 units in p.m. and 14 units in a.m., insulin sliding scale, oxygen 1 liter through CPAP during night, thyroid 65 mg p.o. daily, Ativan 1 mg p.o. at bedtime, Zantac 150 mg p.o. b.i.d., Zofran 8 mg p.o. t.i.d. Linzess 145 mcg p.o. daily, Protonix 40 mg p.o. daily, albuterol 2 puffs every 4 hours p.r.n., metoprolol 25 mg p.o. b.i.d., Reglan 10 mg p.o. q.i.d. Pataday 0.2% ophthalmic solution daily, Adderall 10 mg p.o. daily, Adderall-XL 30 mg p.o. daily, loratadine 10 mg p.o. daily, Dulcolax 10 mg p.o. at bedtime, Travatan 0.004% ophthalmic solution 1 drop at bedtime in both eyes, aspirin 162 mg p.o. daily, vitamin D 4000 units p.o. daily. FAMILY HISTORY: Significant for father had NC at age of 47 and is status post CABG. Mother has thyroid disorder, anxiety, and depression. Brother has hyperlipidemia. SOCIAL HISTORY: , smokes 1 pack a day for last 15 years. No alcohol use. No drug use. Physical Exam (per Admitting): PHYSICAL EXAMINATION: GENERAL: The patient is obese, not in distress. VITAL SIGNS: Temperature 36.8, pulse 88, respiratory rate 16, blood pressure 147/88, oxygen 98% on room air. HEENT: No pallor, no icterus. Pupils equal, round, and reactive to light. NECK: Supple: No JVD, no neck masses. CARDIOVASCULAR: S1, S2 heard, regular rate and rhythm, no murmur, no gallop. RESPIRATORY SYSTEM: Normal AP diameter. No accessory muscle use. No wheezing, no crackles. ABDOMEN: Soft, bowel sounds present. Nontender. No distention. CENTRAL NERVOUS SYSTEM: Cranial nerves II-XII are grossly intact. Nonfocal. EXTREMITIES: No edema. Right foot wounds seen on the heel and first toe. Heel wound is draining with some foul smell. Hospital Course This is a 52-year-old female who presents with non-healing foot ulcer. Nonhealing right foot diabetic ulcer. Right heel pressure ulcer is stage III / IV and MRI findings consistent with osteomyelitis of the distal phalanx of the first toe subjacent to the ulcer cx growing pseudomonas,.serratia marcescens,alpha strep not enterococcus s/p picc line has multiple antibiotic allergies has been on IV aztreonam, IV daptomycin, IV ciprofloxacin with subsequent acute kidney injury currently on Levofloxacin PO q48 hours ID and wound care following YVETTE on ckd stage 3 with downtrending creatinine Renal ultrasound performed on 06/03/17 is normal History of right-sided heart failure, diastolic dysfunction, chronic Coronary artery disease status post coronary artery bypass grafting. Continue aspirin, beta kathy. Not on statin. History of bipolar and attention deficit disorder, on Trintellix, Ativan and Adderall. History of diabetes. HbA1c levels 9.4. has been on insulin drip in the hospital. continue Lantus plus insulin sliding scale at home History of gastroesophageal reflux disease. Continue proton pump inhibitor and Zantac. History of hypertension, on metoprolol. History of constipation, on linaclotide History of anemia from chronic kidney disease. History of gastroparesis History of obstructive sleep apnea, on CPAP. Deep venous thrombosis prophylaxis. Heparin subQ DISPOSITION continue on levofloxacin for 6 to 8 weeks of antibiotic therapy to treat osteomyelitis of right toe discharge to home with follow up to see primary care doctor Dr. Magdaleno on 06/10 at 10:55 AM Follow up with wound clinic on 06/12/17 at 2 PM for the foot ulcers Patient was also followed by nephrology due to acute kidney injury: patient to be contacted by nephrology staff nurse midwife to schedule follow up Nephrology OV in 7 to 10 days w/ Dr. Osborne. Total time spent on discharge = This includes examination of the patient, discharge planning, medication reconciliation, and communication with other providers. Discharge Instructions DISPOSITION continue on levofloxacin for 6 to 8 weeks of antibiotic therapy to treat osteomyelitis of right toe discharge to home with follow up to see primary care doctor Dr. Magdaleno on 06/10 at 10:55 AM Follow up with wound clinic on 06/12/17 at 2 PM for the foot ulcers Patient was also followed by nephrology due to acute kidney injury: patient to be contacted by nephrology staff nurse midwife to schedule follow up Nephrology OV in 7 to 10 days w/ Dr. Osborne.
[2017-06-05 13:07] VITALS: BP 149/99; PULSE 84; TEMP 36.8; O2SAT 96
== END 2017-06-05 15:00 | disposition home or self-care (01) | DRG 622 ==
LOC: C.EDB 13:29 → C.MSW 18:39 → ENRESERV 19:26
PROVIDERS: ADMIT Internal Medicine; ATTEND Hospitalist
PROC: 0JBQ3ZZ Excision of Right Foot Subcutaneous Tissue and Fascia, Percutaneous Approach (ICD-10-PCS; principal; 2017-05-31)
PROC: 0JBQ0ZZ Excision of Right Foot Subcutaneous Tissue and Fascia, Open Approach (ICD-10-PCS; principal; 2017-05-31)
DX: E10.69 Type 1 diabetes mellitus with other specified complication (principal); I50.33 Acute on chronic diastolic (congestive) heart failure; L89.614 Pressure ulcer of right heel, stage 4; I13.0 Hypertensive heart and chronic kidney disease with heart failure and stage 1 through stage 4 chronic kidney disease, or unspecified chronic kidney disease; I50.32 Chronic diastolic (congestive) heart failure; N18.3 Chronic kidney disease, stage 3 (moderate); E03.9 Hypothyroidism, unspecified; E78.5 Hyperlipidemia, unspecified; H40.9 Unspecified glaucoma; K21.9 Gastro-esophageal reflux disease without esophagitis; F17.200 Nicotine dependence, unspecified, uncomplicated; G47.33 Obstructive sleep apnea (adult) (pediatric); F90.9 Attention-deficit hyperactivity disorder, unspecified type; N17.9 Acute kidney failure, unspecified; L89.892 Pressure ulcer of other site, stage 2; Z95.1 Presence of aortocoronary bypass graft; Z79.4 Long term (current) use of insulin; Z79.82 Long term (current) use of aspirin

== ENCOUNTER → 2017-06-14 | Outpatient (CLI) | payer OTHER ==
[~2017-06-14] MED LIST changes: -ACET-1256 PO; +FRS/40 PO; -LSX40 PO; +LVQ750 PO; -THY/120 PO; +VNTHFA/IN INH
[2017-06-14 16:46] LABS: BASO % 0.5 %; BASO ABS # 0.05 K/uL (0-0.2); COMPLETE YES; EOS % 3.5 %; IG% 0.4 %; LYMPH % 26.4 %; MEAN CELL VOLUME 90.9 fL (80-100); MEAN CORPUSCULAR HEMOGLOBIN 29.7 pg (25-34); MEAN CORPUSCULAR HGB CONC 32.7 g/dl (32-36); MONO % 6.6 %; NEUT % 62.6 %; PLATELET COUNT 307 K/uL (130-400); WHITE BLOOD COUNT 10.97 K/uL (4.8-10.8)
[2017-06-14 16:55] LABS: URINE APPEARANCE CLEAR (CLEAR); URINE BILIRUBIN NEG (NEG); URINE COLOR YELLOW; URINE NITRITE NEG (NEG); URINE SPECIFIC GRAVITY 1.019 (1.000-1.030); UROBILINOGEN NEG (NEG)
[2017-06-14 16:56] LABS: URINE APPEARANCE CLEAR (CLEAR); URINE BILIRUBIN NEG (NEG); URINE COLOR YELLOW; URINE EPITHELIAL CELL AUTO 20-30 /lpf (0-5); URINE NITRITE NEG (NEG); URINE SPECIFIC GRAVITY 1.019 (1.000-1.030); UROBILINOGEN NEG (NEG); ZZUR CULT IF INDIC CLEAN CATCH NO
[2017-06-14 16:59] LABS: MANUAL MICROSCOPIC REQUIRED? NO; REVIEW REQ? NO
[2017-06-14 16:59] LABS: MANUAL MICROSCOPIC REQUIRED? NO; REVIEW REQ? NO
[2017-06-14 17:16] LABS: URINE PROTIEN/CREAT RATIO 1.2 (0-0.2)
[2017-06-14 17:34] LABS: BLOOD UREA NITROGEN 59 mg/dl (7-18); BUN/CREATININE RATIO 25.4 (10-20); CALCIUM 9.2 mg/dl (8.5-10.1); CARBON DIOXIDE 17 mmol/L (21-32); CHLORIDE 112 mmol/L (98-107); GLUCOSE 127 mg/dl (70-99); PHOSPHORUS 4.8 mg/dl (2.5-4.9); SODIUM 142 mmol/L (136-145)
== END | disposition home or self-care (01) ==
LOC: C.LABBFT 15:30
PROVIDERS: ATTEND Internal Medicine Nephrology
DX: N18.3 Chronic kidney disease, stage 3 (moderate) (principal); I10 Essential (primary) hypertension

== ENCOUNTER → 2017-07-31 | Outpatient (CLI) | payer OTHER ==
[~2017-07-31] MED LIST changes: -BIOTCAP2 PO; +BISA1TAB15 PO; +CHOL100010 PO; -CHOLTAB11 PO; -CRAN250T PO; -DLC5 PO; +FURO-85 PO; +LAMO25TA PO; +LEVO1TAB35 PO; +LIOT5TAB PO; -LVQ750 PO; +MELA1TAB5 PO; -PTDOPS OPB; -THYR1TAB PO; +THYR1TAB15 PO; -VNTHFA/IN INH
[2017-07-31 17:48] LABS: BASO % 0.5 %; BASO ABS # 0.04 K/uL (0-0.2); COMPLETE YES; EOS % 3.8 %; HEMATOCRIT 34.1 % (37-47); IG% 0.4 %; LYMPH % 25.4 %; LYMPH ABS # 1.96 K/uL (1.2-3.4); MEAN CELL VOLUME 96.3 fL (80-100); MEAN CORPUSCULAR HEMOGLOBIN 29.4 pg (25-34); MEAN CORPUSCULAR HGB CONC 30.5 g/dl (32-36); MEAN PLATELET VOLUME 9.3 fL (7.4-10.4); MONO % 8.4 %; NEUT % 61.5 %; PLATELET COUNT 241 K/uL (130-400); RED BLOOD COUNT 3.54 M/uL (4.2-5.4); WHITE BLOOD COUNT 7.72 K/uL (4.8-10.8)
[2017-07-31 17:55] LABS: BLOOD UREA NITROGEN 59 mg/dl (7-18); BUN/CREATININE RATIO 25.4 (10-20); CALCIUM 8.9 mg/dl (8.5-10.1); CARBON DIOXIDE 20 mmol/L (21-32); CHLORIDE 107 mmol/L (98-107); CREATININE 2.34 mg/dl (0.60-1.20); GLUCOSE 175 mg/dl (70-99); POTASSIUM 4.2 mmol/L (3.5-5.1); SODIUM 136 mmol/L (136-145)
[2017-07-31 18:00] LABS: FERRITIN 31.6 ng/ml (8.0-388.0); PHOSPHORUS 4.9 mg/dl (2.5-4.9); TOTAL IRON BINDING CAPACITY 350 mcg/dl (250-450)
== END | disposition home or self-care (01) ==
LOC: C.LABBFT 12:50
PROVIDERS: ATTEND Internal Medicine Nephrology
DX: D64.9 Anemia, unspecified (principal); I25.10 Atherosclerotic heart disease of native coronary artery without angina pectoris

== ENCOUNTER → 2017-10-01 | Outpatient (CLI) | payer OTHER ==
[~2017-10-01] MED LIST changes: +LEVO1TAB33 PO; -LEVO1TAB35 PO
[2017-10-01 17:32] LABS: BASO % 0.3 %; BASO ABS # 0.03 K/uL (0-0.2); EOS % 2.9 %; EOS ABS # 0.26 K/uL (0-0.5); HEMOGLOBIN 11.6 g/dL (12.0-16.0); IG# 0.02 K/uL (0.00-0.02); LYMPH % 26.1 %; LYMPH ABS # 2.34 K/uL (1.2-3.4); MEAN CELL VOLUME 90.9 fL (80-100); MEAN CORPUSCULAR HEMOGLOBIN 29.3 pg (25-34); MEAN CORPUSCULAR HGB CONC 32.2 g/dl (32-36); MEAN PLATELET VOLUME 9.4 fL (7.4-10.4); MONO % 7.3 %; MONO ABS # 0.65 K/uL (0.11-0.59); NEUT % 63.2 %; NEUT ABS # 5.65 K/uL (1.4-6.5); PLATELET COUNT 245 K/uL (130-400); RED CELL DISTRIBUTION WIDTH CV 13.2 % (11.5-14.5); RED CELL DISTRIBUTION WIDTH SD 43.9 fL (36.4-46.3); WHITE BLOOD COUNT 8.95 K/uL (4.8-10.8)
[2017-10-01 17:51] LABS: BLOOD UREA NITROGEN 61 mg/dl (7-18); CALCIUM 9.9 mg/dl (8.5-10.1); CARBON DIOXIDE 20 mmol/L (21-32); CREATININE 2.67 mg/dl (0.60-1.20); GLUCOSE 127 mg/dl (70-99); POTASSIUM 4.4 mmol/L (3.5-5.1); SODIUM 136 mmol/L (136-145)
[2017-10-01 17:52] LABS: PHOSPHORUS 4.2 mg/dl (2.5-4.9)
== END | disposition home or self-care (01) ==
LOC: C.LABBFT 14:44
PROVIDERS: ATTEND Internal Medicine Nephrology
DX: D64.9 Anemia, unspecified (principal)

== ENCOUNTER 2017-11-12 13:56 | Inpatient (IN) | payer OTHER ==
[~2017-11-12] VITALS: Ht 170.2 cm; Wt 83.6 kg
[~2017-11-12 13:56] MED LIST changes: -LEVO1TAB33 PO; +MODA100T17 PO; +RANI150T85 PO; -ZNTT/150 PO
[2017-11-12 16:15] VITALS: BP 147/77; PULSE 98; TEMP 37; O2SAT 97; BMI 28.9
[2017-11-12 16:31] LABS: HEMATOCRIT 27.7 % (37-47); HEMOGLOBIN 8.8 g/dL (12.0-16.0); MEAN CELL VOLUME 96.9 fL (80-100); MEAN CORPUSCULAR HEMOGLOBIN 30.8 pg (25-34); MEAN CORPUSCULAR HGB CONC 31.8 g/dl (32-36); MEAN PLATELET VOLUME 8.8 fL (7.4-10.4); PLATELET COUNT 340 K/uL (130-400); RED CELL DISTRIBUTION WIDTH CV 16.6 % (11.5-14.5); RED CELL DISTRIBUTION WIDTH SD 58.8 fL (36.4-46.3); WHITE BLOOD COUNT 12.36 K/uL (4.8-10.8)
[2017-11-12 16:50] LABS: PTT PATIENT 28.1 SECONDS (21.0-31.0)
[2017-11-12 16:53] LABS: BASO % 0.2 %; BASO ABS # 0.02 K/uL (0-0.2); EOS % 0.8 %; IG# 0.03 K/uL (0.00-0.02); LYMPH ABS # 1.86 K/uL (1.2-3.4); MONO % 5.8 %; MONO ABS # 0.72 K/uL (0.11-0.59); NEUT ABS # 9.63 K/uL (1.4-6.5)
[2017-11-12] MEDS ORDERED: LEVOFLOXACIN / D5W 500 MG in PREMIXED IN D5W 100 ML IV ONE (17:00)
[2017-11-12 17:04] LABS: ALBUMIN 3.5 gm/dl (3.4-5.0); ALT/SGPT 49 U/L (12-78); BLOOD UREA NITROGEN 47 mg/dl (7-18); CALCIUM 9.8 mg/dl (8.5-10.1); CARBON DIOXIDE 17 mmol/L (21-32); CREATININE 2.11 mg/dl (0.60-1.20); GLUCOSE 239 mg/dl (70-99); SODIUM 137 mmol/L (136-145)
[2017-11-12 17:07] LABS: ALKALINE PHOSPHATASE 353 U/L (45-117); AST/SGOT 22 U/L (15-37); TOTAL PROTEIN 7.1 gm/dl (6.4-8.2)
[2017-11-12] MEDS ORDERED: DAPTOMYCIN CONSULT ACTIVE PRN (17:19)
[2017-11-12] MEDS ORDERED: CHOL1TAB42 PO (17:21)
[2017-11-12] MEDS ORDERED: THYR90TA6 PO (17:21)
[2017-11-12] MEDS ORDERED: MELATAB2 PO (17:21)
[2017-11-12] MEDS ORDERED: GLUCOSE 40% GEL 15 GM TUBE PO PRN (17:30)
[2017-11-12] MEDS ORDERED: GLUCAGON FOR INJ 1 MG VIAL SQ PRN (17:30)
[2017-11-12] MEDS ORDERED: GLUCOSE 10 TABS/TUBE PO PRN (17:30)
[2017-11-12] MEDS ORDERED: DEXTROSE 50% 50 ML SYR IV PRN (17:30)
[2017-11-12] MEDS ORDERED: BISACODYL 5 MG TABEC PO PRN (17:30)
[2017-11-12] MEDS ORDERED: LEVOFLOXACIN CONSULT ACTIVE PRN (18:45)
[2017-11-12] MEDS ORDERED: CEFTAROLINE PHARMACY CONSULT IN PROGRESS PRN (19:00)
--- NOTE | 2017-11-12 19:02 | History and Physical ---
History & Physical Date & Time of Service: Nov 12, 2017 ~ 16:45 Chief Complaint: Right Foot Wound Open And Draining Primary Care Physician: Devon Biggs D.O. History of Present Illness 52-year-old female who is directly admitted to the hospital by referral of the wound clinic for infected right foot diabetic ulcer. Patient has a long- standing history of diabetic foot ulcers. Patient reports that the current one developed approximately 6 weeks ago. She was then placed in the boot and developed an ulcer on the dorsal aspect of the right foot. Patient has been following closely with wound care. She has not been on antibiotics recently. She reports she was placed in a cast approximately 4 weeks ago, which has been being changed weekly. Patient presented for her routine changing today and when cast was removed there was large amount of purulent drainage from the wound as well as a foul-smelling odor. Patient denies any fevers or chills. She had some mild nausea and poor appetite today but denies abdominal pain, vomiting, or diarrhea. No chest pain, shortness of breath, lightheadedness, dizziness, diaphoresis, or syncopal events. She denies any urinary symptoms. Blood sugars have been running high over the past couple of days in the high 200s. At the time my exam patient is resting in bed in no acute distress. Past Medical/Surgical History Medical Problems: (1) ADD (attention deficit disorder) Status: Chronic (2) Anxiety Status: Chronic (3) CAD (coronary artery disease) Permanent Comment: s/p CABG Status: Chronic (4) CKD (chronic kidney disease) stage 3, GFR 30-59 ml/min Status: Chronic (5) Depression Permanent Comment: TMS therapy Status: Chronic (6) Diabetes mellitus type 1 Status: Chronic (7) Dyslipidemia Status: Chronic (8) GERD (gastroesophageal reflux disease) Status: Chronic (9) Glaucoma Status: Chronic (10) HTN (hypertension) Status: Chronic (11) Hypothyroidism Status: Chronic (12) Peripheral vascular disease Status: Chronic (13) Tobacco abuse Status: Chronic Surgical Problems: (1) H/O nasal septoplasty Status: Resolved (2) History of section Status: Resolved (3) S/P CABG x 2 Permanent Comment: Jason Mayo 12/2012 Status: Resolved Family History FH: CAD (coronary artery disease) FATHER (AL at age 47, CABG x 4 ) Social History Smoking Status: Current Every Day Smoker Alcohol Use: none Immunizations History of Influenza Vaccine: Yes Influenza Vaccine Date: May 29, 2017 History of Tetanus Vaccine?: Yes Tetanus Immunization Date: Nov 17, 2010 History of Pneumococcal: Yes Pneumococcal Date: January 23, 2017 History of Hepatitis B Vaccine: Yes Hepatitis Immunization Date: Feb 24, 2003 Allergies Coded Allergies: Penicillins (Verified Allergy, Intermediate, BLOTCHY SKIN/ ITCHY, 06/27/17 ) Vancomycin (Unverified Allergy, Intermediate, SHORTNESS OF BREATH, ) PATIENT RECEIVED VANCOMYCIN (>10 DOSES) SEP-OCT 2012. THEREFORE LISTED REACTION OF SOB IS UNLIKELY TO BE 2ND ANAPHYLAXIS Clopidogrel (Verified Allergy, Mild, rash, 06/27/17) rash due to Plavix or ertapenem Ertapenem (Verified Allergy, Mild, rash, 06/27/17) rash due to Plavix or ertapenem? Cephalosporins (Verified Allergy, Unknown, CECLOR-UNKNOWN, 06/27/17) Erythromycin (Unverified Allergy, Unknown, FROM H AND P-RASH, 06/27/17) Statins (Unverified Allergy, Unknown, MYALGIA, 06/27/17) Codeine (Verified Adverse Reaction, Unknown, VOMITING, 06/27/17) Nitrofurantoin (Unverified Adverse Reaction, Unknown, vomiting, 06/27/17) Pregabalin (Unverified Adverse Reaction, Unknown, VERY EMOTIONAL CRYING, 06/27/17) Home Medications Scheduled Aspirin (Aspirin Ec), 162 MG PO HS Cholecalciferol (Vitamin D), 1 TAB PO DAILY Furosemide (Lasix), 20 MG PO DAILY Insulin Aspart (Novolog), 1 UNIT SC AC Insulin Detemir (Levemir), 17 UNITS SC BID Loratadine (Claritin), 10 MG PO QAM Lorazepam (Lorazepam), 1 MG PO HS Melatonin (Melatonin Maximum Strengt), 1 TAB PO HS Metoclopramide Hcl (Reglan), 10 MG PO ACHS Metoprolol Tartrate (Lopressor) (Lopressor), 25 MG PO BID Ondansetron (Ondansetron HCl), 8 MG PO TID Pantoprazole (Protonix), 40 MG PO BID Ranitidine (Zantac), 150 MG PO BID Thyroid (Patient Account Representative Thyroid 90), 1 TAB PO DAILY Vortioxetine HBr (Trintellix), 1 TAB PO DAILY Scheduled PRN Bisacodyl (Bisacodyl), 2 TAB PO DAILY PRN for Constipation Linaclotide (Linzess), 145 MCG PO QAM PRN for abdominal pain Review of Systems ROS per HPI, all other systems reviewed and negative Physical Exam Vital Signs Date Time Temp Pulse Resp B/P (MAP) Pulse Ox O2 Delivery O2 Flow Rate FiO2 11/12/17 16:15 37.0 98 16 147/77 97 Room Air General Appearance: WD/WN, no apparent distress Head: normocephalic, atraumatic Eyes: normal inspection, EOMI, sclerae normal ENT: hearing grossly normal, + pertinent finding (mucous membranes moist ) Neck: supple, no JVD, trachea midline Respiratory/Chest: lungs clear, normal breath sounds, no respiratory distress Cardiovascular: regular rate, rhythm, no edema, normal peripheral pulses, + pertinent finding Abdomen/GI: normal bowel sounds, non tender, soft, no organomegaly Extremities/Musculoskelatal: normal inspection, no calf tenderness, normal capillary refill Neurologic/Psych: no motor/sensory deficits, alert, normal mood/affect, oriented x 3 Skin: + pertinent finding (stage III ulcer noted to plantar surface of right foot ~ [id number], packing in place, foul odor; ulcer noted on dorsal aspect of right foot ~ [id number] with necrotic base) Diagnostics Laboratory Results Results Past 24 Hours Test 11/12/17 16:12 Range/Units White Blood Count 12.36 4.8-10.8 K/uL Red Blood Count 2.86 4.2-5.4 M/uL Hemoglobin 8.8 12.0-16.0 g/dL Hematocrit 27.7 37-47 % Mean Corpuscular Volume 96.9 80-100 fL Mean Corpuscular Hemoglobin 30.8 25-34 pg Mean Corpuscular Hemoglobin Concent 31.8 32-36 g/dl Platelet Count 340 130-400 K/uL Mean Platelet Volume 8.8 7.4-10.4 fL Neutrophils (%) (Auto) 78.0 % Lymphocytes (%) (Auto) 15.0 % Monocytes (%) (Auto) 5.8 % Eosinophils (%) (Auto) 0.8 % Basophils (%) (Auto) 0.2 % Neutrophils # (Auto) 9.63 1.4-6.5 K/uL Lymphocytes # (Auto) 1.86 1.2-3.4 K/uL Monocytes # (Auto) 0.72 0.11-0.59 K/uL Eosinophils # (Auto) 0.10 0-0.5 K/uL Basophils # (Auto) 0.02 0-0.2 K/uL RDW Standard Deviation 58.8 36.4-46.3 fL RDW Coefficient of Variation 16.6 11.5-14.5 % Immature Granulocyte % (Auto) 0.2 % Immature Granulocyte # (Auto) 0.03 0.00-0.02 K/uL Anisocytosis PRESENT Erythrocyte Sedimentation Rate 25 0-21 mm/hr Prothrombin Time 10.5 9.0-12.0 SECONDS Prothromb Time International Ratio 1.0 0.9-1.1 Activated Partial Thromboplast Time 28.1 21.0-31.0 SECONDS Partial Thromboplastin Ratio 1.1 Sodium Level 137 136-145 mmol/L Potassium Level 4.0 3.5-5.1 mmol/L Chloride Level 111 98-107 mmol/L Carbon Dioxide Level 17 21-32 mmol/L Anion Gap 10.0 3-11 mmol/L Blood Urea Nitrogen 47 7-18 mg/dl Creatinine 2.11 0.60-1.20 mg/dl Est Creatinine Clear Calc Drug Dose ml/min Estimated GFR () 30.2 Estimated GFR (Non- 26.1 BUN/Creatinine Ratio 22.0 10-20 Random Glucose 239 70-99 mg/dl Calcium Level 9.8 8.5-10.1 mg/dl Total Bilirubin 0.3 0.2-1 mg/dl Aspartate Amino Transf (AST/SGOT) 22 15-37 U/L Alanine Aminotransferase (ALT/SGPT) 49 12-78 U/L Alkaline Phosphatase 353 45-117 U/L C-Reactive Protein 8.15 0-0.29 mg/dl Total Protein 7.1 6.4-8.2 gm/dl Albumin 3.5 3.4-5.0 gm/dl Globulin 3.6 2.5-4.0 gm/dl Albumin/Globulin Ratio 1.0 0.9-2 Microbiology Results 11/12/17 Blood Culture, Received Pending 11/12/17 Blood Culture, Received Pending Impression Assessment and Plan Infected diabetic foot ulcer -Admit to [facility] -Patient referred to hospital for direct admission by wound care center for increased purulent drainage from right foot diabetic ulcer -Patient has grown several organisms in the past, most recent culture from June 2017 grew Pseudomonas and Klebsiella -Antibiotics difficult due to patient's extensive allergy profile -Case discussed with Dr. Schuster, will place patient on IV Teflaro and IV Levaquin -Wound culture obtained today in the wound care center -Will obtain blood cultures -WBC 12 K, no signs of sepsis -Check x-ray of foot for osteomyelitis -Consult wound care Diabetes mellitus type 1 -Hgb A1c 8.6 09/2017 -Continue patient on SSI and Lantus CKD stage III -Baseline creatinine runs in the low 2's -Creatinine 2.1 today -Monitor renal functions, avoid nephrotoxic agents when able CAD -Appears stable, no reports of chest pain -Continue aspirin and beta-kathy Chronic systolic and diastolic CHF -Appears euvolemic -Continue furosemide Chronic anemia -Likely due to CKD -Hemoglobin at baseline, no signs of bleeding 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 Advanced Directives Existing Living Will: Yes Existing Power of Cotton Grader: Yes Resuscitation Status VTE Prophylaxis Will order VTE Prophylaxis: Yes Note ATTENDING ADDENDUM Record reviewed. Patient interviewed and examined. Care coordinated with WAI Quiroz. Please refer to her documentation for patient's history. Briefly, 52-year-old female with type 1 diabetes mellitus. Seen in wound clinic today and found to have diabetic foot ulcers of right lower extremity with drainage. No fever at home. EXAM: General-adult female, no acute distress Cardiovascular- pedal pulses intact, capillary refill less than 2 seconds Extremities-ulceration dorsum of right foot; ulcerations plantar surface right foot with surrounding erythema Neuro-decreased sensation bilateral feet DATA: WBC 12,360. Random blood sugar 239. BUN 47, creatinine 2.11. C-reactive protein 8.15. ESR 25. Other lab studies as noted. ASSESSMENT AND PLAN: Infected diabetic foot ulcers right foot. Possible underlying osteomyelitis. Wound culture obtained in Wound Clinic today. Check plain films of foot. Consult ID regarding antibiotic management. Consult Wound Care Team. Blood sugars have been elevated at home, probably secondary to infection. Check hemoglobin A1c. Basal bolus insulin with Levemir + NovoLog. CKD III. Serum creatinine 2.11, close to recent baseline is. Maintain adequate hydration. Avoid potential nephrotoxins when able. Please refer to REZA Freire's documentation for discussion of other issues. Ghanshyam Samuel MD .
[2017-11-12 19:50] VITALS: BP 151/83; PULSE 115; TEMP 38.3; O2SAT 97
[2017-11-12] MEDS: ACETAMINOPHEN 325 MG TAB PO PRN (20:17)
[2017-11-12] MEDS: SODIUM CHLORIDE 0.9% IV SCH (20:48)
[2017-11-12] MEDS: CEFTAROLINE FOSAMIL IV SCH (20:48)
[2017-11-12] MEDS: ASPIRIN 81 MG ECTAB PO SCH (21:00)
[2017-11-12] MEDS: ONDANSETRON 8 MG TAB PO SCH (21:00)
[2017-11-12] MEDS ORDERED: INSULIN GLARGINE SOLOSTAR 100 UNITS/ML 3 ML PEN SC SCH (21:00)
[2017-11-12] MEDS: RANITIDINE HCL 150 MG TAB PO SCH (21:01)
[2017-11-12] MEDS: METOCLOPRAMIDE HCL 10 MG TAB PO SCH (21:01)
[2017-11-12] MEDS: METOPROLOL TARTRATE 25 MG TAB PO SCH (21:01)
[2017-11-12] MEDS: PANTOprazole SOD 40 MG TAB PO SCH (21:01)
[2017-11-12] MEDS: LORAZEPAM 1 MG TAB PO PRN (21:09)
[2017-11-12] MEDS: NICOTINE 7 MG/24 HR TDSY TD SCH (21:09)
[2017-11-12] MEDS: INSULIN ASPART 100 UNITS/ML 3 ML PEN SC SCH (21:21)
[2017-11-12] MEDS: HEPARIN SOD 5000 UNIT/0.5 ML CARP SQ SCH (21:23)
[2017-11-12] MEDS: INSULIN DETEMIR FLEXPEN/FLEX TOUCH 100 UNITS/ML 3ML SC SCH (21:23)
[2017-11-12] MEDS ORDERED: INSULIN DETEMIR FLEXPEN/FLEX TOUCH 100 UNITS/ML 3ML SC ONE (21:45)
[2017-11-12 22:48] VITALS: BP 143/79; PULSE 79; TEMP 37.8; O2SAT 91
[2017-11-13] VITALS (7 sets, daily range): BP systolic 134–158; BP diastolic 75–84; PULSE 76–89; TEMP 37.2–37.6; O2SAT 91–92; Ht 170.2 cm; Wt 83.6 kg
[2017-11-13] MEDS ORDERED: TRINTELLIX: ORDER AWAITING ACTION SCH
[2017-11-13] MEDS ORDERED: INSULIN ASPART 100 UNITS/ML 3 ML PEN SC ONE ×2 (01:00→04:00)
[2017-11-13] MEDS ORDERED: TRAVOPROST Z 0.004% OPH SOLN 2.5 ML BTL OPB ONE (01:00)
[2017-11-13] MEDS: HEPARIN SOD 5000 UNIT/0.5 ML CARP SQ SCH ×3 (06:00→22:00)
[2017-11-13 06:24] LABS: HEMOGLOBIN A1C 6.4 % (4.5-5.6)
[2017-11-13] MEDS: METOCLOPRAMIDE HCL 10 MG TAB PO SCH ×4 (07:30→20:57)
[2017-11-13 07:33] LABS: HEMATOCRIT 25.4 % (37-47); HEMOGLOBIN 8.1 g/dL (12.0-16.0); MEAN CELL VOLUME 95.1 fL (80-100); MEAN CORPUSCULAR HEMOGLOBIN 30.3 pg (25-34); MEAN CORPUSCULAR HGB CONC 31.9 g/dl (32-36); MEAN PLATELET VOLUME 8.6 fL (7.4-10.4); PLATELET COUNT 290 K/uL (130-400); RED CELL DISTRIBUTION WIDTH CV 16.5 % (11.5-14.5); WHITE BLOOD COUNT 10.74 K/uL (4.8-10.8)
[2017-11-13] MEDS: CEFTAROLINE FOSAMIL IV SCH ×2 (07:36→19:31)
[2017-11-13] MEDS: SODIUM CHLORIDE 0.9% IV SCH ×2 (07:36→19:31)
[2017-11-13 07:53] LABS: CALCIUM 8.9 mg/dl (8.5-10.1); CREATININE 2.24 mg/dl (0.60-1.20); POTASSIUM 3.9 mmol/L (3.5-5.1)
--- NOTE | 2017-11-13 08:18 | DIAGNOSTIC IMAGING REPORT ---
FOOT MIN 3 VIEWS ROUTINE HISTORY: 52 years-old Female ulcer, r/o osteomyelitis chronic skin ulcer of the right foot with clinical concern for possible osteomyelitis COMPARISON: Right foot radiographs 06/27/2017 Right ankle radiographs 01/04/2015 TECHNIQUE: 3 views of the right foot FINDINGS: Previously described skin ulcer of the medial distal first digit is not appreciated. Bones appear moderately demineralized. There is mild/moderate soft tissue swelling about the forefoot without opaque foreign body. No acute fracture or subluxation. Chronic deformity of the mid to distal aspect fifth metatarsal is again seen suggesting prior partial amputation. Small plantar calcaneal enthesophyte. Mild degenerative changes of the talonavicular joint. Vascular calcifications noted. No definite erosive changes to suggest osseous myelitis. IMPRESSION: 1. Mild to moderate soft tissue swelling about the foot without definite erosive changes to suggest osteomyelitis at this time. 2. No acute fracture or dislocation. 3. Osteopenic appearance of the bones. The above report was generated using voice recognition software. It may contain grammatical, syntax or spelling errors. Electronically signed by: Juan Mejia M.D. 11/13/2017 8:17 AM Dictated Date/Time: 11/13/2017 8:12 AM
[2017-11-13] MEDS: PANTOprazole SOD 40 MG TAB PO SCH ×2 (09:27→20:55)
[2017-11-13] MEDS: FUROSEMIDE 20 MG TAB PO SCH (09:27)
[2017-11-13] MEDS: RANITIDINE HCL 150 MG TAB PO SCH ×2 (09:27→20:57)
[2017-11-13] MEDS: CHOLECALCIFEROL 1000 INTER.UNIT TAB PO SCH (09:28)
[2017-11-13] MEDS: ONDANSETRON 8 MG TAB PO SCH ×3 (09:28→20:56)
[2017-11-13] MEDS: METOPROLOL TARTRATE 25 MG TAB PO SCH ×2 (09:29→20:55)
[2017-11-13] MEDS: VORTIOXETINE HBR 10 MG PO SCH (09:30)
[2017-11-13] MEDS: INSULIN ASPART 100 UNITS/ML 3 ML PEN SC SCH ×4 (09:34→20:51)
[2017-11-13] MEDS: INSULIN DETEMIR FLEXPEN/FLEX TOUCH 100 UNITS/ML 3ML SC SCH ×2 (09:35→20:52)
--- NOTE | 2017-11-13 11:01 | INFECT. DISEASE CONSULTATION ---
DATE OF CONSULTATION: 11/13/2017 HISTORY OF PRESENT ILLNESS: This is a 52-year-old female who was referred from the wound center for worsening right foot ulceration. A culture was obtained in the wound center yesterday and results of this are pending. Her most recent cultures were from May of 2017 showed Klebsiella oxytoca and pseudomonas, both of which were pansensitive. She has recently been off antibiotics. She does admit to some subjective fevers and chills. She did have a T-max of 38.3 overnight. She also had an episode of chills and vomiting. She did have a leukocytosis of 12, which is improved to 10. Her sed rate is elevated as well as her CRP. Blood cultures are pending. She is currently on ceftaroline and levofloxacin and appears to be tolerating these well. She does have a reported ALLERGY TO CEPHALOSPORINS, but has been tolerating ceftaroline. She currently feels much better. She denies any fevers or chills. On my examination, she states she has no chest pain, cough, shortness of breath, nausea, vomiting or diarrhea. Her remaining review of systems is unremarkable with the exception of right foot pain. PAST MEDICAL HISTORY: Significant for ADD, anxiety, coronary artery disease, chronic kidney disease, depression, type 1 diabetes, high cholesterol, GERD, glaucoma, hypertension, hypothyroidism, peripheral vascular disease and history of chronic diabetic ulceration. PAST SURGICAL HISTORY: Significant for septoplasty, and CABG. FAMILY HISTORY: Noncontributory. SOCIAL HISTORY: Significant for daily tobacco use. She denies any alcohol use or drug use. ALLERGIES: SHE HAS ALLERGIES TO PENICILLIN, VANCOMYCIN, PLAVIX, ERTAPENEM, CEPHALOSPORINS, ERYTHROMYCIN, STATINS, CODEINE, AND NITROFURANTOIN. MEDICATIONS: Include eyedrops, nicotine patch, insulin, Levaquin, Lasix, vitamin D, Trintellix, subQ heparin, aspirin, Reglan, Lopressor, Zofran, Protonix, Zantac, ceftaroline, Dulcolax, Ativan and Tylenol. PHYSICAL EXAMINATION: VITAL SIGNS: She currently is afebrile. Her T-max is 38.3, pulse 88, respiratory rate 18, blood pressure 139/78, oxygen saturation is 92% on room air. GENERAL: She is awake, alert and oriented x3. She is in no acute distress. HEENT: Mucous membranes are moist. Extraocular muscles are intact. HEART: Regular. LUNGS: Clear. ABDOMEN: Soft. EXTREMITIES: There is no edema, diabetic boots are in place. LABORATORY STUDIES: CBC today reveals a white blood cell count of 10.7, hemoglobin 8.1, platelets 290. Sed rate was 25. Chemistry panel reveals a sodium of 136, potassium 3.9, chloride 110, bicarbonate 19, BUN 50, creatinine 2.2, and glucose 160. Blood cultures are pending. Wound culture from the wound center is pending. IMAGING DATA: A foot x-ray did not show any evidence of osteomyelitis. IMPRESSION AND PLAN: Diabetic foot infection. She will be maintained on broad spectrum antibiotics pending additional culture results. Thank you for this consultation.
--- NOTE | 2017-11-13 11:11 | Progress Note ---
Progress Note Date of Service Nov 13, 2017. Progress Note ID Consult Dictated #[id number] A/P: 1. Diabetic foot ulcer -right heel -Continue emperic abx -Follow blood/wound cultures -Continue wound care -Will follow, thank you
--- NOTE | 2017-11-13 13:37 | Progress Note ---
Medicine Progress Note Date & Time of Visit: Nov 13, 2017 at 13:11. Subjective Pt was seen and examined Sitting in bed with no distress eating breakfast Pt said that she feels fine She said last night she spiked a fever Denies any chest pain, palpitation, dizziness and SOB Objective Last 8 Hrs Date Time Temp Pulse Resp B/P (MAP) Pulse Ox O2 Delivery O2 Flow Rate FiO2 11/13/17 09:26 88 139/78 (98) 11/13/17 07:25 Room Air 11/13/17 07:14 37.2 78 18 147/84 (105) 92 Room Air Physical Exam: General- No acute distress Head- atraumatic Eyes- PERRL, EOMI ENT- oropharynx clear Neck- supple, no JVD Lungs- clear to auscultation Heart- regular rhythm Abdomen- normal bowel sounds, soft Extremities- no calf tenderness Neuro- alert, oriented x 3; PERRL, EOMI Skin- warm & dry Laboratory Results: Last 24 Hours Test 11/12/17 16:12 11/12/17 18:08 11/12/17 20:38 11/13/17 00:58 White Blood Count 12.36 K/uL Red Blood Count 2.86 M/uL Hemoglobin 8.8 g/dL Hematocrit 27.7 % Mean Corpuscular Volume 96.9 fL Mean Corpuscular Hemoglobin 30.8 pg Mean Corpuscular Hemoglobin Concent 31.8 g/dl Platelet Count 340 K/uL Mean Platelet Volume 8.8 fL Neutrophils (%) (Auto) 78.0 % Lymphocytes (%) (Auto) 15.0 % Monocytes (%) (Auto) 5.8 % Eosinophils (%) (Auto) 0.8 % Basophils (%) (Auto) 0.2 % Neutrophils # (Auto) 9.63 K/uL Lymphocytes # (Auto) 1.86 K/uL Monocytes # (Auto) 0.72 K/uL Eosinophils # (Auto) 0.10 K/uL Basophils # (Auto) 0.02 K/uL RDW Standard Deviation 58.8 fL RDW Coefficient of Variation 16.6 % Immature Granulocyte % (Auto) 0.2 % Immature Granulocyte # (Auto) 0.03 K/uL Anisocytosis PRESENT Erythrocyte Sedimentation Rate 25 mm/hr Prothrombin Time 10.5 SECONDS Prothromb Time International Ratio 1.0 Activated Partial Thromboplast Time 28.1 SECONDS Partial Thromboplastin Ratio 1.1 Sodium Level 137 mmol/L Potassium Level 4.0 mmol/L Chloride Level 111 mmol/L Carbon Dioxide Level 17 mmol/L Anion Gap 10.0 mmol/L Blood Urea Nitrogen 47 mg/dl Creatinine 2.11 mg/dl Est Creatinine Clear Calc Drug Dose ml/min Estimated GFR () 30.2 Estimated GFR (Non- 26.1 BUN/Creatinine Ratio 22.0 Random Glucose 239 mg/dl Estimated Average Glucose 137 mg/dl Hemoglobin A1c 6.4 % Calcium Level 9.8 mg/dl Total Bilirubin 0.3 mg/dl Aspartate Amino Transf (AST/SGOT) 22 U/L Alanine Aminotransferase (ALT/SGPT) 49 U/L Alkaline Phosphatase 353 U/L C-Reactive Protein 8.15 mg/dl Total Protein 7.1 gm/dl Albumin 3.5 gm/dl Globulin 3.6 gm/dl Albumin/Globulin Ratio 1.0 Bedside Glucose 324 mg/dl 346 mg/dl 305 mg/dl Test 11/13/17 04:00 11/13/17 07:13 Bedside Glucose 259 mg/dl White Blood Count 10.74 K/uL Red Blood Count 2.67 M/uL Hemoglobin 8.1 g/dL Hematocrit 25.4 % Mean Corpuscular Volume 95.1 fL Mean Corpuscular Hemoglobin 30.3 pg Mean Corpuscular Hemoglobin Concent 31.9 g/dl RDW Standard Deviation 57.0 fL RDW Coefficient of Variation 16.5 % Platelet Count 290 K/uL Mean Platelet Volume 8.6 fL Sodium Level 136 mmol/L Potassium Level 3.9 mmol/L Chloride Level 110 mmol/L Carbon Dioxide Level 19 mmol/L Anion Gap 8.0 mmol/L Blood Urea Nitrogen 50 mg/dl Creatinine 2.24 mg/dl Est Creatinine Clear Calc Drug Dose 32.3 ml/min Estimated GFR () 28.1 Estimated GFR (Non- 24.2 BUN/Creatinine Ratio 22.4 Random Glucose 160 mg/dl Calcium Level 8.9 mg/dl Date/Time Source Procedure Growth Status 11/12/17 18:02 Blood Blood Culture Pending Received 11/12/17 17:45 Blood Blood Culture Pending Received Assessment & Plan Infected diabetic right foot ulcer Xray of right foot showed mild to moderate soft tissue swelling about the foot without definite erosive changes to suggest osteomyelitis at this time. Most recent culture from June 2017 grew Pseudomonas and Klebsiella febrile with elevated WBC ID on board On IV Teflaro and IV Levaquin Blood cx pending Will follow wound cx that was collected at the wound clinic WBC wnl and has been afebrile in the last few hours. 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 ACHS SC 11/12/17 21:00 12/12/17 20:59 11/13/17 09:34 1 UNITS Glucose (Glucose 40% Gel) 15-30 GRAMS 15 GRAMS... UD PRN PO 11/12/17 17:30 12/12/17 17:29 Glucose (Glucose Chew Tab) 4-8 Tablets 4 Tabl... UD PRN PO 11/12/17 17:30 12/12/17 17:29 Dextrose (Dextrose 50% 50ML Syringe) 25-50ML OF 50% DW IV FOR... UD PRN IV 11/12/17 17:30 12/12/17 17:29 Glucagon (Glucagon Inj) 1 mg UD PRN SQ 11/12/17 17:30 12/12/17 17:29 Aspirin (Ecotrin Tab) 162 mg HS PO 11/12/17 21:00 12/12/17 20:59 11/12/17 21:00 162 MG Bisacodyl (Dulcolax Tab) 10 mg DAILY PRN PO 11/12/17 17:30 12/12/17 17:29 Furosemide (Lasix Tab) 20 mg DAILY PO 11/13/17 09:00 12/13/17 08:59 11/13/17 09:27 20 MG Lorazepam (Ativan Tab) 1 mg HS PRN PO 11/12/17 17:30 12/12/17 17:29 11/12/17 21:09 1 MG Metoclopramide HCl (Reglan Tab) 10 mg ACHS PO 11/12/17 21:00 12/12/17 20:59 11/13/17 12:40 10 MG Metoprolol Tartrate (Lopressor Tab) 25 mg BID PO 11/12/17 21:00 12/12/17 20:59 11/13/17 09:29 25 MG Ondansetron HCl (Zofran Tab) 8 mg TID PO 11/12/17 21:00 12/12/17 20:59 11/13/17 09:28 8 MG Pantoprazole Sodium (Protonix Tab) 40 mg BID PO 11/12/17 21:00 12/12/17 20:59 11/13/17 09:27 40 MG Ranitidine HCl (zANTac TAB) 150 mg BID PO 11/12/17 21:00 12/12/17 20:59 11/13/17 09:27 150 MG Cholecalciferol (Vitamin D Tab) 5,000 inter.unit DAILY PO 11/13/17 09:00 12/13/17 08:59 11/13/17 09:28 5,000 INTER.UNIT Miscellaneous Information 1 ea UD PRN N/A 11/12/17 19:00 12/12/17 18:59 Levofloxacin (Consult) 1 ea UD PRN N/A 11/12/17 18:45 12/12/17 18:44 Ceftaroline Fosamil 400 mg/ Sodium Chloride 263.3333 ml @ 270 mls/hr Q12H IV 11/12/17 20:00 11/22/17 19:59 11/13/17 07:36 270 MLS/HR Levofloxacin 250 mg/Prmx 50 ml @ 50 mls/hr Q24H IV 11/13/17 18:00 11/22/17 17:59 Heparin Sodium (Porcine) (Heparin Sq 5000 Unit/0.5ml) 5,000 unit Q8 SQ 11/12/17 22:00 12/12/17 21:59 Nicotine (Nicoderm Cq 7 Mg Patch) 1 patch QAM TD 11/12/17 20:45 12/12/17 20:44 11/12/17 21:09 1 PATCH Miscellaneous (Remove Nicoderm Patch) 1 ea HS N/A 11/13/17 21:00 12/13/17 20:59 Promethazine HCl 12.5 mg/Sodium Chloride 50.5 ml @ 204 mls/hr Q6H PRN IV 11/12/17 20:45 12/12/17 20:44 Non-Formulary Medication (Non-Formulary Patient'S Own Med) 1 ea DAILYBB PO 11/14/17 06:00 12/14/17 05:59 Vortioxetine (Trintellix) 20 mg DAILY PO 11/13/17 09:00 12/13/17 08:59 11/13/17 09:30 20 MG Travoprost (Travatan Z) 1 drops HS OPB 11/14/17 21:00 12/14/17 20:59 Insulin Detemir (Levemir Flexpen/ FlexTouch) PER SCALE BID SC 11/13/17 21:00 12/13/17 20:59
--- NOTE | 2017-11-13 14:22 | Wound Progress Note: Inpatient ---
Wound Progress Note Date of Service Nov 13, 2017. Subjective Pt evaluation today including: conversation w/ patient, physical exam, chart review, review of studies Patient was seen today for reevaluation of an abscess formation to the plantar surface of the left foot evaluated and treated yesterday in the outpatient wound clinic. Patient states she was sick last evening with fever chills nausea and vomiting but is feeling markedly improved today. Patient denies any increased swelling or redness in the foot or leg region. Patient denies any nausea vomiting abdominal discomfort chest pain or shortness of breath. Patient denies any other systemic complaints. Objective Vital Signs Date Time Temp Pulse Resp B/P (MAP) Pulse Ox O2 Delivery O2 Flow Rate FiO2 11/13/17 09:26 88 139/78 (98) 11/13/17 07:25 Room Air 11/13/17 07:14 37.2 78 18 147/84 (105) 92 Room Air 11/13/17 04:03 37.3 11/12/17 23:25 Room Air 11/12/17 22:48 37.8 79 18 143/79 (100) 91 Room Air 11/12/17 19:50 38.3 115 20 151/83 (105) 97 Room Air 11/12/17 16:15 37.0 98 16 147/77 97 Room Air 11/12/17 16:15 37.0 98 16 147/77 (100) 97 Room Air Physical Exam Notes: Patient currently is lying in hospital bed in no acute distress. Patient is alert and cooperative throughout the examination and treatment. Vital signs were reviewed and found to be unremarkable. The ulcerative and abscess site today shows a reduced periwound erythema. There is still some minimal discharge with palpation and central necrosis and slough noted. No odor present. No edema noted. Laboratory Results Last 24 Hours Test 11/12/17 16:12 11/12/17 18:08 11/12/17 20:38 11/13/17 00:58 White Blood Count 12.36 K/uL Red Blood Count 2.86 M/uL Hemoglobin 8.8 g/dL Hematocrit 27.7 % Mean Corpuscular Volume 96.9 fL Mean Corpuscular Hemoglobin 30.8 pg Mean Corpuscular Hemoglobin Concent 31.8 g/dl Platelet Count 340 K/uL Mean Platelet Volume 8.8 fL Neutrophils (%) (Auto) 78.0 % Lymphocytes (%) (Auto) 15.0 % Monocytes (%) (Auto) 5.8 % Eosinophils (%) (Auto) 0.8 % Basophils (%) (Auto) 0.2 % Neutrophils # (Auto) 9.63 K/uL Lymphocytes # (Auto) 1.86 K/uL Monocytes # (Auto) 0.72 K/uL Eosinophils # (Auto) 0.10 K/uL Basophils # (Auto) 0.02 K/uL RDW Standard Deviation 58.8 fL RDW Coefficient of Variation 16.6 % Immature Granulocyte % (Auto) 0.2 % Immature Granulocyte # (Auto) 0.03 K/uL Anisocytosis PRESENT Erythrocyte Sedimentation Rate 25 mm/hr Prothrombin Time 10.5 SECONDS Prothromb Time International Ratio 1.0 Activated Partial Thromboplast Time 28.1 SECONDS Partial Thromboplastin Ratio 1.1 Sodium Level 137 mmol/L Potassium Level 4.0 mmol/L Chloride Level 111 mmol/L Carbon Dioxide Level 17 mmol/L Anion Gap 10.0 mmol/L Blood Urea Nitrogen 47 mg/dl Creatinine 2.11 mg/dl Est Creatinine Clear Calc Drug Dose ml/min Estimated GFR () 30.2 Estimated GFR (Non- 26.1 BUN/Creatinine Ratio 22.0 Random Glucose 239 mg/dl Estimated Average Glucose 137 mg/dl Hemoglobin A1c 6.4 % Calcium Level 9.8 mg/dl Total Bilirubin 0.3 mg/dl Aspartate Amino Transf (AST/SGOT) 22 U/L Alanine Aminotransferase (ALT/SGPT) 49 U/L Alkaline Phosphatase 353 U/L C-Reactive Protein 8.15 mg/dl Total Protein 7.1 gm/dl Albumin 3.5 gm/dl Globulin 3.6 gm/dl Albumin/Globulin Ratio 1.0 Bedside Glucose 324 mg/dl 346 mg/dl 305 mg/dl Test 11/13/17 04:00 11/13/17 07:13 11/13/17 12:06 Bedside Glucose 259 mg/dl 127 mg/dl White Blood Count 10.74 K/uL Red Blood Count 2.67 M/uL Hemoglobin 8.1 g/dL Hematocrit 25.4 % Mean Corpuscular Volume 95.1 fL Mean Corpuscular Hemoglobin 30.3 pg Mean Corpuscular Hemoglobin Concent 31.9 g/dl RDW Standard Deviation 57.0 fL RDW Coefficient of Variation 16.5 % Platelet Count 290 K/uL Mean Platelet Volume 8.6 fL Sodium Level 136 mmol/L Potassium Level 3.9 mmol/L Chloride Level 110 mmol/L Carbon Dioxide Level 19 mmol/L Anion Gap 8.0 mmol/L Blood Urea Nitrogen 50 mg/dl Creatinine 2.24 mg/dl Est Creatinine Clear Calc Drug Dose 32.3 ml/min Estimated GFR () 28.1 Estimated GFR (Non- 24.2 BUN/Creatinine Ratio 22.4 Random Glucose 160 mg/dl Calcium Level 8.9 mg/dl Assessment and Plan Assessment: Malathi grade 2 diabetic foot ulcer left foot Abscess with associated cellulitis left foot Plan: At this time further debridement was indicated. With the patient's permission and after the application of topical Xylocaine 4% central slough and some necrotic tissue along with subcutaneous tissue was removed with scissors and forceps. Minimal bleeding occurred which was controlled with direct pressure. The site will be dressed with Aquacel Ag and gauze changed on a daily basis. Patient will continue her current antibiotic therapy pending culture results from yesterday. Patient will continue to be monitored and evaluated during her hospitalization followed up in the outpatient clinic upon discharge. This represented an excisional debridement of less than 20 cm.
[2017-11-13] MEDS ORDERED: LEVOFLOXACIN 250MG / D5W IV SCH ×2 (16:00→18:00)
[2017-11-13] MEDS: ASPIRIN 81 MG ECTAB PO SCH (21:07)
[2017-11-13] MEDS: PROMETHAZINE HCL INJ 12.5 MG in SODIUM CHLORIDE 0.9% 50ML 50 ML IV PRN (21:14)
[2017-11-13] MEDS: LORAZEPAM 1 MG TAB PO PRN (22:07)
[2017-11-14] MEDS: HEPARIN SOD 5000 UNIT/0.5 ML CARP SQ SCH ×3 (05:46→20:42)
[2017-11-14] MEDS: NP THYROID 90 MG PO SCH (05:46)
[2017-11-14 07:38] VITALS: BP 144/78; PULSE 73; TEMP 37; O2SAT 94
[2017-11-14] MEDS: INSULIN ASPART 100 UNITS/ML 3 ML PEN SC SCH ×4 (08:00→20:38)
[2017-11-14] MEDS: ONDANSETRON 8 MG TAB PO SCH ×3 (09:22→20:19)
[2017-11-14] MEDS: METOCLOPRAMIDE HCL 10 MG TAB PO SCH ×4 (09:23→20:19)
[2017-11-14] MEDS: FUROSEMIDE 20 MG TAB PO SCH (09:23)
[2017-11-14] MEDS: PANTOprazole SOD 40 MG TAB PO SCH ×2 (09:24→20:19)
[2017-11-14] MEDS: CHOLECALCIFEROL 1000 INTER.UNIT TAB PO SCH (09:24)
[2017-11-14] MEDS: VORTIOXETINE HBR 10 MG PO SCH (09:24)
[2017-11-14] MEDS: NICOTINE 7 MG/24 HR TDSY TD SCH (09:28)
[2017-11-14] MEDS: INSULIN DETEMIR FLEXPEN/FLEX TOUCH 100 UNITS/ML 3ML SC SCH ×2 (09:34→20:41)
[2017-11-14] MEDS: CEFTAROLINE FOSAMIL IV SCH ×2 (09:37→20:16)
[2017-11-14] MEDS: SODIUM CHLORIDE 0.9% IV SCH ×2 (09:37→20:16)
[2017-11-14] MEDS: METOPROLOL TARTRATE 25 MG TAB PO SCH ×2 (10:09→20:24)
[2017-11-14] MEDS: RANITIDINE HCL 150 MG TAB PO SCH ×2 (10:09→20:19)
[2017-11-14 10:53] LABS: HEMATOCRIT 26.4 % (37-47); HEMOGLOBIN 8.4 g/dL (12.0-16.0); MEAN CELL VOLUME 95.7 fL (80-100); MEAN CORPUSCULAR HEMOGLOBIN 30.4 pg (25-34); MEAN CORPUSCULAR HGB CONC 31.8 g/dl (32-36); MEAN PLATELET VOLUME 8.8 fL (7.4-10.4); PLATELET COUNT 296 K/uL (130-400); RED CELL DISTRIBUTION WIDTH SD 55.1 fL (36.4-46.3); WHITE BLOOD COUNT 8.29 K/uL (4.8-10.8)
[2017-11-14 11:19] LABS: CALCIUM 8.8 mg/dl (8.5-10.1); CREATININE 2.19 mg/dl (0.60-1.20); POTASSIUM 3.8 mmol/L (3.5-5.1)
--- NOTE | 2017-11-14 13:58 | Progress Note ---
Subjective Date of Service: Nov 14, 2017. Subjective pt tolerating abx. low grade fever overnight, now afebrile. wound culture from wound center with MSSA. blood cultures negative. undergoing wound care during admission. Problem List Medical Problems: (1) Acute coronary syndrome Status: Acute (2) Cellulitis Status: Acute (3) Congestive heart failure Status: Acute (4) Diabetic foot ulcer with osteomyelitis Status: Acute (5) Elevated d-dimer Status: Acute (6) History of CHF (congestive heart failure) Status: Acute (7) History of coronary artery disease Status: Acute (8) Sepsis Status: Acute (9) SOB (shortness of breath) Status: Acute Objective Vital Signs Date Time Temp Pulse Resp B/P (MAP) Pulse Ox O2 Delivery O2 Flow Rate FiO2 11/14/17 09:21 Room Air 11/14/17 07:38 37.0 73 19 144/78 (100) 94 Room Air 11/13/17 23:30 Room Air 11/13/17 22:49 37.4 76 16 134/75 (94) 91 Room Air 11/13/17 20:55 89 158/81 (106) 11/13/17 16:15 92 Room Air 11/13/17 15:29 37.6 84 18 145/82 (103) 92 Room Air Laboratory Results Item Value Date Time Gram Stain - Final Resulted 11/12/17 1415 Ulcer Foot Right Gram Stain - Final Resulted 11/12/17 1415 Ulcer Foot Right Blood Culture - Preliminary Resulted 11/12/17 1745 Blood NO GROWTH TO DATE. Blood Culture - Preliminary Resulted 11/12/17 1802 Blood NO GROWTH TO DATE. Last 24 Hours Test 11/13/17 17:01 11/13/17 20:43 11/14/17 08:04 11/14/17 10:35 Bedside Glucose 161 mg/dl 197 mg/dl 144 mg/dl White Blood Count 8.29 K/uL Red Blood Count 2.76 M/uL Hemoglobin 8.4 g/dL Hematocrit 26.4 % Mean Corpuscular Volume 95.7 fL Mean Corpuscular Hemoglobin 30.4 pg Mean Corpuscular Hemoglobin Concent 31.8 g/dl RDW Standard Deviation 55.1 fL RDW Coefficient of Variation 16.0 % Platelet Count 296 K/uL Mean Platelet Volume 8.8 fL Sodium Level 138 mmol/L Potassium Level 3.8 mmol/L Chloride Level 111 mmol/L Carbon Dioxide Level 18 mmol/L Anion Gap 9.0 mmol/L Blood Urea Nitrogen 52 mg/dl Creatinine 2.19 mg/dl Est Creatinine Clear Calc Drug Dose 33.0 ml/min Estimated GFR () 28.9 Estimated GFR (Non- 24.9 BUN/Creatinine Ratio 23.9 Random Glucose 121 mg/dl Calcium Level 8.8 mg/dl Assessment and Plan (1) Diabetic foot infection Assessment & Plan: will stop levaquin and continue teflaro for now, upon d/c can change to po doxy 100mg po bid. will need continued wound care post d/c, can follow with ID in wound center as well.
[2017-11-14 15:20] VITALS: BP 136/69; PULSE 72; TEMP 37.1; O2SAT 91
--- NOTE | 2017-11-14 18:41 | Progress Note ---
Medicine Progress Note Date & Time of Visit: Nov 14, 2017 at 18:38. Subjective Pt was seen and examined Lying in bed with no distress Pt said that she had a fever last night She said that she feels better today Denies any chest pain Palpitation, dizziness and SOB Objective Last 8 Hrs Date Time Temp Pulse Resp B/P (MAP) Pulse Ox O2 Delivery O2 Flow Rate FiO2 11/14/17 15:20 37.1 72 19 136/69 (91) 91 Room Air Physical Exam: General- No acute distress Head- atraumatic Eyes- PERRL, EOMI ENT- oropharynx clear Neck- supple, no JVD Lungs- clear to auscultation Heart- regular rhythm Abdomen- normal bowel sounds, soft Extremities- no calf tenderness Neuro- alert, oriented x 3; PERRL, EOMI Skin- warm & dry Laboratory Results: Last 24 Hours Test 11/13/17 20:43 11/14/17 08:04 11/14/17 10:35 11/14/17 17:05 Bedside Glucose 197 mg/dl 144 mg/dl 109 mg/dl White Blood Count 8.29 K/uL Red Blood Count 2.76 M/uL Hemoglobin 8.4 g/dL Hematocrit 26.4 % Mean Corpuscular Volume 95.7 fL Mean Corpuscular Hemoglobin 30.4 pg Mean Corpuscular Hemoglobin Concent 31.8 g/dl RDW Standard Deviation 55.1 fL RDW Coefficient of Variation 16.0 % Platelet Count 296 K/uL Mean Platelet Volume 8.8 fL Sodium Level 138 mmol/L Potassium Level 3.8 mmol/L Chloride Level 111 mmol/L Carbon Dioxide Level 18 mmol/L Anion Gap 9.0 mmol/L Blood Urea Nitrogen 52 mg/dl Creatinine 2.19 mg/dl Est Creatinine Clear Calc Drug Dose 33.0 ml/min Estimated GFR () 28.9 Estimated GFR (Non- 24.9 BUN/Creatinine Ratio 23.9 Random Glucose 121 mg/dl Calcium Level 8.8 mg/dl Assessment & Plan Infected diabetic right foot ulcer Xray of right foot showed mild to moderate soft tissue swelling about the foot without definite erosive changes to suggest osteomyelitis at this time. Most recent culture from June 2017 grew Pseudomonas and Klebsiella febrile with elevated WBC ID on board On IV Teflaro and IV Levaquin Blood cx pending Will follow wound cx that was collected at the wound clinic WBC wnl and has been afebrile in the last few hours. Continue daily wound care Wound care on board 11/14 Will follow wound culture that was collected at wound clinic Francisca D/c ID recommended to change to PO doxy on discharge Pt said that she cannot tolerate doxy Will discuss with ID Diabetes mellitus type 1 Hgb A1c 6.4 on 11/13/17 Continue patient on SSI and Lantus CKD stage III Baseline creatinine runs in the low 2's Creatinine 2.1 today avoid nephrotoxic agents when able Monitor renal functions CAD Stable Continue aspirin and beta-kathy Chronic systolic and diastolic CHF No sign of fluid overload continue furosemide Chronic anemia Hemoglobin at baseline No signs of bleeding Monitor H/H Hypothyroidism Continue [employer] thyroid Depression, ADD Continue trend Telex Patient recently weaned off Lamictal and Adderall DVT prophylaxis SQ heparin CODE STATUS FULL CODE Consultants: ID Wound Current Inpatient Medications: Current Inpatient Medications Medications (Trade) Dose Ordered Sig/Kike Route Start Time Stop Time Status Last Admin Dose Admin Acetaminophen (Tylenol Tab) 650 mg Q4H PRN PO 11/12/17 16:00 12/12/17 15:59 11/12/17 20:17 650 MG Insulin Aspart (novoLOG ASPART) SLIDING SCALE If C... ACHS SC 11/12/17 21:00 12/12/17 20:59 11/14/17 14:02 1 UNITS Glucose (Glucose 40% Gel) 15-30 GRAMS 15 GRAMS... UD PRN PO 11/12/17 17:30 12/12/17 17:29 Glucose (Glucose Chew Tab) 4-8 Tablets 4 Tabl... UD PRN PO 11/12/17 17:30 12/12/17 17:29 Dextrose (Dextrose 50% 50ML Syringe) 25-50ML OF 50% DW IV FOR... UD PRN IV 11/12/17 17:30 12/12/17 17:29 Glucagon (Glucagon Inj) 1 mg UD PRN SQ 11/12/17 17:30 12/12/17 17:29 Aspirin (Ecotrin Tab) 162 mg HS PO 11/12/17 21:00 12/12/17 20:59 11/13/17 21:07 162 MG Bisacodyl (Dulcolax Tab) 10 mg DAILY PRN PO 3/13/18 17:30 12/12/17 17:29 Furosemide (Lasix Tab) 20 mg DAILY PO 11/13/17 09:00 12/13/17 08:59 11/14/17 09:23 20 MG Lorazepam (Ativan Tab) 1 mg HS PRN PO 11/12/17 17:30 12/12/17 17:29 11/13/17 22:07 1 MG Metoclopramide HCl (Reglan Tab) 10 mg ACHS PO 11/12/17 21:00 12/12/17 20:59 11/14/17 17:53 10 MG Metoprolol Tartrate (Lopressor Tab) 25 mg BID PO 11/12/17 21:00 12/12/17 20:59 11/14/17 10:09 25 MG Ondansetron HCl (Zofran Tab) 8 mg TID PO 11/12/17 21:00 12/12/17 20:59 11/14/17 14:04 8 MG Pantoprazole Sodium (Protonix Tab) 40 mg BID PO 11/12/17 21:00 12/12/17 20:59 11/14/17 09:24 40 MG Ranitidine HCl (zANTac TAB) 150 mg BID PO 11/12/17 21:00 12/12/17 20:59 11/14/17 10:09 150 MG Cholecalciferol (Vitamin D Tab) 5,000 inter.unit DAILY PO 11/13/17 09:00 12/13/17 08:59 11/14/17 09:24 5,000 INTER.UNIT Miscellaneous Information 1 ea UD PRN N/A 11/12/17 19:00 12/12/17 18:59 Ceftaroline Fosamil 400 mg/ Sodium Chloride 263.3333 ml @ 270 mls/hr Q12H IV 11/12/17 20:00 11/22/17 19:59 11/14/17 09:37 270 MLS/HR Heparin Sodium (Porcine) (Heparin Sq 5000 Unit/0.5ml) 5,000 unit Q8 SQ 11/12/17 22:00 12/12/17 21:59 Nicotine (Nicoderm Cq 7 Mg Patch) 1 patch QAM TD 11/12/17 20:45 12/12/17 20:44 11/14/17 09:28 1 PATCH Miscellaneous (Remove Nicoderm Patch) 1 ea HS N/A 11/13/17 21:00 12/13/17 20:59 11/13/17 21:17 1 EA Promethazine HCl 12.5 mg/Sodium Chloride 50.5 ml @ 204 mls/hr Q6H PRN IV 11/12/17 20:45 12/12/17 20:44 11/13/17 21:14 204 MLS/HR Non-Formulary Medication (Non-Formulary Patient'S Own Med) 1 ea DAILYBB PO 11/14/17 06:00 12/14/17 05:59 11/14/17 05:46 1 EA Vortioxetine (Trintellix) 20 mg DAILY PO 11/13/17 09:00 12/13/17 08:59 11/14/17 09:24 20 MG Travoprost (Travatan Z) 1 drops HS OPB 11/14/17 21:00 12/14/17 20:59 Insulin Detemir (Levemir Flexpen/ FlexTouch) PER SCALE BID SC 11/13/17 21:00 12/13/17 20:59 11/14/17 09:34 17 UNITS
[2017-11-14 20:10] VITALS: BP 171/84; PULSE 77
[2017-11-14] MEDS: TRAVOPROST Z 0.004% OPH SOLN 2.5 ML BTL OPB SCH (20:17)
[2017-11-14] MEDS: ASPIRIN 81 MG ECTAB PO SCH (20:18)
[2017-11-14] MEDS: LORAZEPAM 1 MG TAB PO PRN (20:24)
[2017-11-14 21:30] VITALS: TEMP 37.7
[2017-11-14 21:44] VITALS: BP 152/77; TEMP 37
[2017-11-14 23:07] VITALS: BP 146/79; PULSE 77; TEMP 37.6; TEMP 37.8; O2SAT 90
[2017-11-15] VITALS (8 sets, daily range): BP systolic 130–158; BP diastolic 55–74; PULSE 68–80; TEMP 36.4–37.4; O2SAT 92–93
[2017-11-15] MEDS: PROMETHAZINE HCL INJ 12.5 MG in SODIUM CHLORIDE 0.9% 50ML 50 ML IV PRN (00:03)
[2017-11-15] MEDS: ACETAMINOPHEN 325 MG TAB PO PRN (00:04)
[2017-11-15] MEDS: HEPARIN SOD 5000 UNIT/0.5 ML CARP SQ SCH ×3 (05:46→21:29)
[2017-11-15] MEDS: NP THYROID 90 MG PO SCH (05:47)
[2017-11-15] MEDS: INSULIN ASPART 100 UNITS/ML 3 ML PEN SC SCH ×4 (08:00→21:23)
[2017-11-15] MEDS: SODIUM CHLORIDE 0.9% IV SCH ×2 (08:32→19:59)
[2017-11-15] MEDS: CEFTAROLINE FOSAMIL IV SCH ×2 (08:32→19:59)
[2017-11-15] MEDS: METOCLOPRAMIDE HCL 10 MG TAB PO SCH ×4 (08:34→21:20)
[2017-11-15] MEDS: FUROSEMIDE 20 MG TAB PO SCH (08:36)
[2017-11-15] MEDS: METOPROLOL TARTRATE 25 MG TAB PO SCH ×2 (08:38→21:20)
[2017-11-15] MEDS: PANTOprazole SOD 40 MG TAB PO SCH ×2 (08:39→21:20)
[2017-11-15] MEDS: CHOLECALCIFEROL 1000 INTER.UNIT TAB PO SCH (08:42)
[2017-11-15] MEDS: RANITIDINE HCL 150 MG TAB PO SCH ×2 (08:50→21:20)
[2017-11-15] MEDS: ONDANSETRON 8 MG TAB PO SCH ×3 (08:51→21:24)
[2017-11-15] MEDS: VORTIOXETINE HBR 10 MG PO SCH (08:52)
[2017-11-15] MEDS: NICOTINE 7 MG/24 HR TDSY TD SCH (09:01)
[2017-11-15] MEDS: INSULIN DETEMIR FLEXPEN/FLEX TOUCH 100 UNITS/ML 3ML SC SCH ×2 (09:15→21:22)
--- NOTE | 2017-11-15 11:27 | Progress Note ---
Subjective Date of Service: Nov 15, 2017. Subjective Pt evaluation today including: conversation w/ patient, physical exam, chart review, lab review pt seen in followup, no complaints except some gi upset, phenergan helping. no f /c but low grade temp overnight. tolerating teflaro. no pain in foot, s/p dressing change just prior to my exam. blood cultures negative, wound culture with MSSA. Does not wish to take doxy post d/c due to gi upset, states she has taken keflex in past with no difficulty. all remaining ros reviewed and are negative. Problem List Medical Problems: (1) Acute coronary syndrome Status: Acute (2) Cellulitis Status: Acute (3) Congestive heart failure Status: Acute (4) Diabetic foot ulcer with osteomyelitis Status: Acute (5) Elevated d-dimer Status: Acute (6) History of CHF (congestive heart failure) Status: Acute (7) History of coronary artery disease Status: Acute (8) Sepsis Status: Acute (9) SOB (shortness of breath) Status: Acute Objective Vital Signs Date Time Temp Pulse Resp B/P (MAP) Pulse Ox O2 Delivery O2 Flow Rate FiO2 11/15/17 08:42 Room Air 11/15/17 07:55 92 Room Air 11/15/17 07:46 36.8 68 20 132/74 (93) 92 Room Air 11/14/17 23:07 37.8 77 16 146/79 (101) 90 Room Air 11/14/17 23:07 37.6 11/14/17 21:44 37.0 152/77 (102) 11/14/17 21:30 37.7 11/14/17 20:10 77 171/84 (113) 11/14/17 20:10 Room Air 11/14/17 15:20 37.1 72 19 136/69 (91) 91 Room Air Physical Exam General Appearance: WD/WN, no apparent distress Eyes: normal inspection, EOMI Neck: supple Respiratory/Chest: lungs clear, normal breath sounds, no respiratory distress Cardiovascular: no edema Abdomen: soft Extremities: non-tender Neurologic/Psychiatric: alert, oriented x 3 Skin: normal color Laboratory Results Item Value Date Time Gram Stain - Final Complete 11/12/17 1415 Ulcer Foot Right Gram Stain - Final Complete 11/12/17 1415 Ulcer Foot Right Blood Culture - Preliminary Resulted 11/12/17 1802 Blood NO GROWTH TO DATE. Blood Culture - Preliminary Resulted 11/12/17 1745 Blood NO GROWTH TO DATE. Last 24 Hours Test 11/14/17 11:54 11/14/17 17:05 11/14/17 20:33 Bedside Glucose 120 mg/dl 109 mg/dl 140 mg/dl Assessment and Plan (1) Diabetic foot infection Assessment & Plan: continue teflaro for now, upon d/c can change to po keflex 500mg po bid, has taken in past without issue. will need continued wound care post d/c, can follow with ID in wound center as well.
--- NOTE | 2017-11-15 19:28 | Progress Note ---
Medicine Progress Note Date & Time of Visit: Nov 15, 2017 at 19:23. Subjective pt was seen and examined Lying in bed with no distress denies any symptoms Objective Last 8 Hrs Date Time Temp Pulse Resp B/P (MAP) Pulse Ox O2 Delivery O2 Flow Rate FiO2 11/15/17 15:24 36.7 76 18 130/55 (80) 93 Room Air 11/15/17 15:20 93 Room Air 11/15/17 11:41 36.4 70 19 150/74 (99) 92 Room Air Physical Exam: General- No acute distress Head- atraumatic Eyes- PERRL, EOMI ENT- oropharynx clear Neck- supple, no JVD Lungs- clear to auscultation Heart- regular rhythm Abdomen- normal bowel sounds, soft Extremities- no calf tenderness Neuro- alert, oriented x 3; PERRL, EOMI Skin- warm & dry Laboratory Results: Last 24 Hours Test 11/14/17 20:33 11/15/17 08:50 11/15/17 12:46 11/15/17 17:37 Bedside Glucose 140 mg/dl 89 mg/dl 111 mg/dl 221 mg/dl Assessment & Plan Infected diabetic right foot ulcer Xray of right foot showed mild to moderate soft tissue swelling about the foot without definite erosive changes to suggest osteomyelitis at this time. Most recent culture from June 2017 grew Pseudomonas and Klebsiella febrile with elevated WBC ID on board On IV Teflaro and IV Levaquin Blood cx pending Will follow wound cx that was collected at the wound clinic WBC wnl and has been afebrile in the last few hours. Continue daily wound care Wound care on board 11/15 Outpatient wound cx grew staph aureus (sensitive) Levaquin was d/jonathon Since pt will not be able to tolerate doxy ID recommended to change to PO keflex on discharge for 14 days Continue teflaro Already has a follow up appt with wound care on . Diabetes mellitus type 1 Hgb A1c 6.4 on 11/13/17 Continue patient on SSI and Lantus CKD stage III Baseline creatinine runs in the low 2's Creatinine 2.1 yesterday avoid nephrotoxic agents when able Monitor renal functions CAD Stable Continue aspirin and beta-kathy Chronic systolic and diastolic CHF No sign of fluid overload continue furosemide Chronic anemia Hemoglobin at baseline No signs of bleeding Monitor H/H Hypothyroidism Continue [employer] thyroid Depression, ADD Continue trend Telex Patient recently weaned off Lamictal and Adderall DVT prophylaxis SQ heparin CODE STATUS FULL CODE DISPOSITION Will discharge home tomorrow Consultants: ID Wound Current Inpatient Medications: Current Inpatient Medications Medications (Trade) Dose Ordered Sig/Kike Route Start Time Stop Time Status Last Admin Dose Admin Acetaminophen (Tylenol Tab) 650 mg Q4H PRN PO 11/12/17 16:00 12/12/17 15:59 11/15/17 00:04 650 MG Insulin Aspart (novoLOG ASPART) SLIDING SCALE If C... ACHS SC 11/12/17 21:00 12/12/17 20:59 11/15/17 18:40 4 UNITS Glucose (Glucose 40% Gel) 15-30 GRAMS 15 GRAMS... UD PRN PO 11/12/17 17:30 12/12/17 17:29 Glucose (Glucose Chew Tab) 4-8 Tablets 4 Tabl... UD PRN PO 11/12/17 17:30 12/12/17 17:29 Dextrose (Dextrose 50% 50ML Syringe) 25-50ML OF 50% DW IV FOR... UD PRN IV 11/12/17 17:30 12/12/17 17:29 Glucagon (Glucagon Inj) 1 mg UD PRN SQ 11/12/17 17:30 12/12/17 17:29 Aspirin (Ecotrin Tab) 162 mg HS PO 11/12/17 21:00 12/12/17 20:59 11/14/17 20:18 162 MG Bisacodyl (Dulcolax Tab) 10 mg DAILY PRN PO 11/12/17 17:30 12/12/17 17:29 Furosemide (Lasix Tab) 20 mg DAILY PO 11/13/17 09:00 12/13/17 08:59 11/15/17 08:36 20 MG Lorazepam (Ativan Tab) 1 mg HS PRN PO 11/12/17 17:30 12/12/17 17:29 11/14/17 20:24 1 MG Metoclopramide HCl (Reglan Tab) 10 mg ACHS PO 11/12/17 21:00 12/12/17 20:59 11/15/17 18:36 10 MG Metoprolol Tartrate (Lopressor Tab) 25 mg BID PO 11/12/17 21:00 4/12/18 20:59 11/15/17 08:38 25 MG Ondansetron HCl (Zofran Tab) 8 mg TID PO 11/12/17 21:00 12/12/17 20:59 11/15/17 13:31 8 MG Pantoprazole Sodium (Protonix Tab) 40 mg BID PO 11/12/17 21:00 12/12/17 20:59 11/15/17 08:39 40 MG Ranitidine HCl (zANTac TAB) 150 mg BID PO 11/12/17 21:00 12/12/17 20:59 11/15/17 08:50 150 MG Cholecalciferol (Vitamin D Tab) 5,000 inter.unit DAILY PO 11/13/17 09:00 12/13/17 08:59 11/15/17 08:42 5,000 INTER.UNIT Miscellaneous Information 1 ea UD PRN N/A 11/12/17 19:00 12/12/17 18:59 Ceftaroline Fosamil 400 mg/ Sodium Chloride 263.3333 ml @ 270 mls/hr Q12H IV 11/12/17 20:00 11/22/17 19:59 11/15/17 08:32 270 MLS/HR Heparin Sodium (Porcine) (Heparin Sq 5000 Unit/0.5ml) 5,000 unit Q8 SQ 11/12/17 22:00 12/12/17 21:59 Nicotine (Nicoderm Cq 7 Mg Patch) 1 patch QAM TD 11/12/17 20:45 12/12/17 20:44 11/15/17 09:01 1 PATCH Miscellaneous (Remove Nicoderm Patch) 1 ea HS N/A 11/13/17 21:00 12/13/17 20:59 11/13/17 21:17 1 EA Promethazine HCl 12.5 mg/Sodium Chloride 50.5 ml @ 204 mls/hr Q6H PRN IV 11/12/17 20:45 12/12/17 20:44 11/15/17 00:03 204 MLS/HR Non-Formulary Medication (Non-Formulary Patient'S Own Med) 1 ea DAILYBB PO 11/14/17 06:00 12/14/17 05:59 11/15/17 05:47 1 EA Vortioxetine (Trintellix) 20 mg DAILY PO 11/13/17 09:00 12/13/17 08:59 11/15/17 08:52 20 MG Travoprost (Travatan Z) 1 drops HS OPB 11/14/17 21:00 12/14/17 20:59 11/14/17 20:17 1 DROPS Insulin Detemir (Levemir Flexpen/ FlexTouch) PER SCALE BID SC 11/13/17 21:00 12/13/17 20:59 11/15/17 09:15 12 UNITS
[2017-11-15] MEDS: TRAVOPROST Z 0.004% OPH SOLN 2.5 ML BTL OPB SCH (21:21)
[2017-11-15] MEDS: ASPIRIN 81 MG ECTAB PO SCH (21:21)
[2017-11-15] MEDS: LORAZEPAM 1 MG TAB PO PRN (21:35)
[2017-11-16] MEDS ORDERED: LORAZEPAM 1 MG TAB PO ONE (02:45)
[2017-11-16 05:42] LABS: HEMATOCRIT 26.2 % (37-47); HEMOGLOBIN 8.3 g/dL (12.0-16.0); MEAN CELL VOLUME 94.9 fL (80-100); MEAN CORPUSCULAR HEMOGLOBIN 30.1 pg (25-34); MEAN CORPUSCULAR HGB CONC 31.7 g/dl (32-36); MEAN PLATELET VOLUME 9.1 fL (7.4-10.4); PLATELET COUNT 306 K/uL (130-400); RED CELL DISTRIBUTION WIDTH CV 15.7 % (11.5-14.5); WHITE BLOOD COUNT 9.51 K/uL (4.8-10.8)
[2017-11-16] MEDS: NP THYROID 90 MG PO SCH (05:58)
[2017-11-16] MEDS: HEPARIN SOD 5000 UNIT/0.5 ML CARP SQ SCH ×3 (05:58→13:46)
[2017-11-16 07:25] VITALS: BP 142/84; PULSE 69; TEMP 37; O2SAT 90
[2017-11-16] MEDS: CEFTAROLINE FOSAMIL IV SCH (08:25)
[2017-11-16] MEDS: SODIUM CHLORIDE 0.9% IV SCH (08:25)
[2017-11-16] MEDS: METOCLOPRAMIDE HCL 10 MG TAB PO SCH ×2 (08:26→13:46)
[2017-11-16] MEDS: NICOTINE 7 MG/24 HR TDSY TD SCH (08:38)
[2017-11-16] MEDS: METOPROLOL TARTRATE 25 MG TAB PO SCH (08:40)
[2017-11-16] MEDS: RANITIDINE HCL 150 MG TAB PO SCH (08:40)
[2017-11-16] MEDS: VORTIOXETINE HBR 10 MG PO SCH (08:40)
[2017-11-16] MEDS: PANTOprazole SOD 40 MG TAB PO SCH (08:40)
[2017-11-16] MEDS: CHOLECALCIFEROL 1000 INTER.UNIT TAB PO SCH (08:41)
[2017-11-16] MEDS: ONDANSETRON 8 MG TAB PO SCH ×2 (08:41→13:46)
[2017-11-16] MEDS: FUROSEMIDE 20 MG TAB PO SCH (08:42)
[2017-11-16] MEDS: INSULIN DETEMIR FLEXPEN/FLEX TOUCH 100 UNITS/ML 3ML SC SCH (08:48)
[2017-11-16] MEDS: INSULIN ASPART 100 UNITS/ML 3 ML PEN SC SCH ×2 (08:48→12:00)
--- NOTE | 2017-11-16 15:08 | Progress Note ---
Medicine Progress Note Date & Time of Visit: Nov 16, 2017 at 15:04. Subjective Pt was seen and examined Lying in bed with no distress Pt said that she feels fine No fever last night Denies any chest pain, palpitation and SOB Objective Last 8 Hrs Date Time Temp Pulse Resp B/P (MAP) Pulse Ox O2 Delivery O2 Flow Rate FiO2 11/16/17 07:56 Room Air 11/16/17 07:25 37.0 69 16 142/84 (103) 90 Room Air Physical Exam: General- No acute distress Head- atraumatic Eyes- PERRL, EOMI ENT- oropharynx clear Neck- supple, no JVD Lungs- clear to auscultation Heart- regular rhythm Abdomen- normal bowel sounds, soft Extremities- no calf tenderness Neuro- alert, oriented x 3; PERRL, EOMI Skin- warm & dry Laboratory Results: Last 24 Hours Test 11/15/17 17:37 11/15/17 20:51 11/16/17 05:22 11/16/17 07:57 Bedside Glucose 221 mg/dl 269 mg/dl 209 mg/dl White Blood Count 9.51 K/uL Red Blood Count 2.76 M/uL Hemoglobin 8.3 g/dL Hematocrit 26.2 % Mean Corpuscular Volume 94.9 fL Mean Corpuscular Hemoglobin 30.1 pg Mean Corpuscular Hemoglobin Concent 31.7 g/dl RDW Standard Deviation 54.0 fL RDW Coefficient of Variation 15.7 % Platelet Count 306 K/uL Mean Platelet Volume 9.1 fL Assessment & Plan Infected diabetic right foot ulcer Xray of right foot showed mild to moderate soft tissue swelling about the foot without definite erosive changes to suggest osteomyelitis at this time. Most recent culture from June 2017 grew Pseudomonas and Klebsiella febrile with elevated WBC ID on board On IV Teflaro and IV Levaquin Blood cx pending Will follow wound cx that was collected at the wound clinic WBC wnl and has been afebrile in the last few hours. Continue daily wound care Wound care on board 11/16 Outpatient wound cx grew staph aureus (sensitive) Levaquin was d/jonathon Since pt will not be able to tolerate doxy ID recommended to change to PO keflex on discharge for 14 days Pt said that she took keflex in the past with no issues as per ID Pt said that she is not sure if she took it in the past, but she said that she usually develops GI symptoms with abx. Will give 1st dose of keflex while in the hospital to watch for side effect. Received teflaro for about 5 days Already has a follow up appt with wound care on . Follow up with Dr. 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 ACHS SC 11/12/17 21:00 12/12/17 20:59 11/16/17 08:48 2 UNITS Glucose (Glucose 40% Gel) 15-30 GRAMS 15 GRAMS... UD PRN PO 11/12/17 17:30 12/12/17 17:29 Glucose (Glucose Chew Tab) 4-8 Tablets 4 Tabl... UD PRN PO 11/12/17 17:30 12/12/17 17:29 Dextrose (Dextrose 50% 50ML Syringe) 25-50ML OF 50% DW IV FOR... UD PRN IV 11/12/17 17:30 12/12/17 17:29 Glucagon (Glucagon Inj) 1 mg UD PRN SQ 11/12/17 17:30 12/12/17 17:29 Aspirin (Ecotrin Tab) 162 mg HS PO 11/12/17 21:00 12/12/17 20:59 11/15/17 21:21 162 MG Bisacodyl (Dulcolax Tab) 10 mg DAILY PRN PO 11/12/17 17:30 12/12/17 17:29 Furosemide (Lasix Tab) 20 mg DAILY PO 11/13/17 09:00 12/13/17 08:59 11/16/17 08:42 20 MG Lorazepam (Ativan Tab) 1 mg HS PRN PO 11/12/17 17:30 12/12/17 17:29 11/15/17 21:35 1 MG Metoclopramide HCl (Reglan Tab) 10 mg ACHS PO 11/12/17 21:00 12/12/17 20:59 11/16/17 13:46 10 MG Metoprolol Tartrate (Lopressor Tab) 25 mg BID PO 11/12/17 21:00 12/12/17 20:59 11/16/17 08:40 25 MG Ondansetron HCl (Zofran Tab) 8 mg TID PO 11/12/17 21:00 12/12/17 20:59 11/16/17 13:46 8 MG Pantoprazole Sodium (Protonix Tab) 40 mg BID PO 11/12/17 21:00 12/12/17 20:59 11/16/17 08:40 40 MG Ranitidine HCl (zANTac TAB) 150 mg BID PO 11/12/17 21:00 12/12/17 20:59 11/16/17 08:40 150 MG Cholecalciferol (Vitamin D Tab) 5,000 inter.unit DAILY PO 11/13/17 09:00 12/13/17 08:59 11/16/17 08:41 5,000 INTER.UNIT Miscellaneous Information 1 ea UD PRN N/A 11/12/17 19:00 12/12/17 18:59 Ceftaroline Fosamil 400 mg/ Sodium Chloride 263.3333 ml @ 270 mls/hr Q12H IV 11/12/17 20:00 11/22/17 19:59 11/16/17 08:25 270 MLS/HR Heparin Sodium (Porcine) (Heparin Sq 5000 Unit/0.5ml) 5,000 unit Q8 SQ 11/12/17 22:00 12/12/17 21:59 Nicotine (Nicoderm Cq 7 Mg Patch) 1 patch QAM TD 11/12/17 20:45 12/12/17 20:44 11/16/17 08:38 1 PATCH Miscellaneous (Remove Nicoderm Patch) 1 ea HS N/A 11/13/17 21:00 12/13/17 20:59 11/15/17 21:21 1 EA Promethazine HCl 12.5 mg/Sodium Chloride 50.5 ml @ 204 mls/hr Q6H PRN IV 11/12/17 20:45 12/12/17 20:44 11/15/17 00:03 204 MLS/HR Non-Formulary Medication (Non-Formulary Patient'S Own Med) 1 ea DAILYBB PO 11/14/17 06:00 12/14/17 05:59 11/16/17 05:58 1 EA Vortioxetine (Trintellix) 20 mg DAILY PO 11/13/17 09:00 12/13/17 08:59 11/16/17 08:40 20 MG Travoprost (Travatan Z) 1 drops HS OPB 11/14/17 21:00 12/14/17 20:59 11/15/17 21:21 1 DROPS Insulin Detemir (Levemir Flexpen/ FlexTouch) PER SCALE BID SC 11/13/17 21:00 12/13/17 20:59 11/16/17 08:48 20 UNITS
[2017-11-16 15:13] VITALS: BP 146/72; PULSE 71; TEMP 36.4; O2SAT 97
[2017-11-16] MEDS ORDERED: CEPH-571 PO ×2 (15:13→15:21)
--- NOTE | 2017-11-16 15:18 | Discharge Instructions ---
Discharge Instructions Date of Service Nov 16, 2017. Admission Reason for Admission: Right Foot Wound Open And Draining Discharge Discharge Diagnosis / Problem: Infected diabetic right foot ulcer, CKD STAGE 3 , Diabetes Discharge Goals Goal(s): Decrease discomfort, Improve function, Improve disease control Activity Recommendations Activity Limitations: resume your previous activity . Instructions / Follow-Up Instructions / Follow-Up FOLLOW UP WITH YOUR PRIMARY CARE PROVIDER DR. CALABRESE ON 11/20 @ 10:55 AM FOLLOW UP WITH THE WOUND CLINIC ON SUNDAY NOVEMBER 19, 2017 AT 0840 CONTINUE DAILY WOUND CARE RIGHT PLANTAR FOOT WOUNDS TO BE DRESSED WITH AQUACEL AG AND OPTIFOAM FALL PRECAUTION MONITOR BLOOD SUGAR AND LIMITED CONCENTRATED SWEET INTAKE . Current Hospital Diet Patient's current hospital diet: AHA Diet (Heart Healthy), Diabetes Type 1 Diet Discharge Diet Recommended Diet: Diabetes Type 1 Diet Pending Studies Studies pending at discharge: no Laboratory Results Hemoglobin A1c Test 11/12/17 16:12 Range/Units Estimated Average Glucose 137 mg/dl Hemoglobin A1c 6.4 H 4.5-5.6 % Medical Emergencies . Who to Call and When: Medical Emergencies: If at any time you feel your situation is an emergency, please call 911 immediately. . Non-Emergent Contact Non-Emergency issues call your: Primary Care Provider Call Non-Emergent contact if: you have a fever, you have any medication questions . . "Provider Documentation" section prepared by Marianna Aguilar. .
[2017-11-16] MEDS ORDERED: CEPHALEXIN MONOHYDRATE 500 MG CAP PO ONE (15:30)
[2017-11-16 15:33] VITALS: BP 146/72; PULSE 71; TEMP 36.4; O2SAT 97
--- NOTE | 2017-11-18 07:48 | Discharge Summary ---
Discharge Summary Date of Service Nov 18, 2017. Discharge Summary Admission Date: Nov 12, 2017 at 13:56 Discharge Date: Nov 16, 2017 Discharge Disposition: Home Principal Diagnosis: Infected diabetic right foot ulcer Secondary Diagnoses/Problems: Diabetes mellitus type 1 CKD stage 3 Chronic systolic and diastolic CHF CAD Hypothyroidism Chronic anemia Depression Procedures: [~ rep ct add3]] FOOT MIN 3 VIEWS ROUTINE HISTORY: 52 years-old Female ulcer, r/o osteomyelitis chronic skin ulcer of the right foot with clinical concern for possible osteomyelitis COMPARISON: Right foot radiographs 06/27/2017 Right ankle radiographs 01/04/2015 TECHNIQUE: 3 views of the right foot FINDINGS: Previously described skin ulcer of the medial distal first digit is not appreciated. Bones appear moderately demineralized. There is mild/moderate soft tissue swelling about the forefoot without opaque foreign body. No acute fracture or subluxation. Chronic deformity of the mid to distal aspect fifth metatarsal is again seen suggesting prior partial amputation. Small plantar calcaneal enthesophyte. Mild degenerative changes of the talonavicular joint. Vascular calcifications noted. No definite erosive changes to suggest osseous myelitis. IMPRESSION: 1. Mild to moderate soft tissue swelling about the foot without definite erosive changes to suggest osteomyelitis at this time. 2. No acute fracture or dislocation. 3. Osteopenic appearance of the bones. The above report was generated using voice recognition software. It may contain grammatical, syntax or spelling errors. Electronically signed by: Juan Mejia M.D. 11/13/2017 8:17 AM Dictated Date/Time: 11/13/2017 8:12 AM Consultations: ID Wound Medication Reconciliation New Medications: Cephalexin (Keflex) 500 Mg Cap 1 CAP PO BID for 14 Days, #28 CAP Took Keflex in the past with no issues Continued Medications: Aspirin (Aspirin Ec) 81 Mg Tab 162 MG PO HS Bisacodyl (Bisacodyl) 5 Mg Tab 2 TAB PO DAILY PRN for Constipation, TAB Cholecalciferol (Vitamin D) 5,000 Unit Tab 1 TAB PO DAILY Furosemide (Lasix) 20 Mg Tab 20 MG PO DAILY, TAB Insulin Aspart (Novolog) 100 Units/Ml Inj 1 UNIT SC AC per sliding scale, 1:15 for carbs coverage, max 15 units; also uses correction factor 70mg/dL/unit for elevatations above 130 Insulin Detemir (Levemir) 100 Units/Ml Inj 17 UNITS SC BID Linaclotide (Linzess) 145 Mcg Cap 145 MCG PO QAM PRN for abdominal pain Loratadine (Claritin) 10 Mg Tab 10 MG PO QAM, TAB Lorazepam (Lorazepam) 1 Mg Tab 1 MG PO HS Melatonin (Melatonin Maximum Strengt) 5 Mg Tab 1 TAB PO HS for 30 Days, #30 TAB Metoclopramide Hcl (Reglan) 10 Mg Tab 10 MG PO ACHS, TAB Metoprolol Tartrate (Lopressor) (Lopressor) 25 Mg Tab 25 MG PO BID, TAB Ondansetron (Ondansetron HCl) 8 Mg Tab 8 MG PO TID Pantoprazole (Protonix) 40 Mg Tab 40 MG PO BID Ranitidine (Zantac) 150 Mg Tab 150 MG PO BID, TAB 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 Patient has a long- standing history of diabetic foot ulcers. Patient reports that the current one developed approximately 6 weeks ago. She was then placed in the boot and developed an ulcer on the dorsal aspect of the right foot. Patient has been following closely with wound care. She has not been on antibiotics recently. She reports she was placed in a cast approximately 4 weeks ago, which has been being changed weekly. Patient presented for her routine changing today and when cast was removed there was large amount of purulent drainage from the wound as well as a foul-smelling odor. Patient denies any fevers or chills. She had some mild nausea and poor appetite today but denies abdominal pain, vomiting, or diarrhea. No chest pain, shortness of breath, lightheadedness, dizziness, diaphoresis, or syncopal events. She denies any urinary symptoms. Blood sugars have been running high over the past couple of days in the high 200s. At the time my exam patient is resting in bed in no acute distress. Physical Exam (per Admitting): General Appearance: WD/WN, no apparent distress Head: normocephalic, atraumatic Eyes: normal inspection, EOMI, sclerae normal ENT: hearing grossly normal, + pertinent finding (mucous membranes moist ) Neck: supple, no JVD, trachea midline Respiratory/Chest: lungs clear, normal breath sounds, no respiratory distress Cardiovascular: regular rate, rhythm, no edema, normal peripheral pulses, + pertinent finding Abdomen/GI: normal bowel sounds, non tender, soft, no organomegaly Extremities/Musculoskelatal: normal inspection, no calf tenderness, normal capillary refill Neurologic/Psych: no motor/sensory deficits, alert, normal mood/affect, oriented x 3 Skin: + pertinent finding (stage III ulcer noted to plantar surface of right foot ~ [id number], packing in place, foul odor; ulcer noted on dorsal aspect of right foot ~ [id number] with necrotic base) Hospital Course Infected diabetic right foot ulcer Xray of right foot showed mild to moderate soft tissue swelling about the foot without definite erosive changes to suggest osteomyelitis at this time. Most recent culture from June 2017 grew Pseudomonas and Klebsiella febrile with elevated WBC ID on board On IV Teflaro and IV Levaquin Blood cx pending Will follow wound cx that was collected at the wound clinic WBC wnl and has been afebrile in the last few hours. Continue daily wound care Wound care on board 11/16 Outpatient wound cx grew staph aureus (sensitive) Levaquin was d/jonathon Since pt will not be able to tolerate doxy ID recommended to change to PO keflex on discharge for 14 days Pt said that she took keflex in the past with no issues as per ID Pt said that she is not sure if she took it in the past, but she said that she usually develops GI symptoms with abx. Will give 1st dose of keflex while in the hospital to watch for side effect. Received teflaro for about 5 days Already has a follow up appt with wound care on . Follow up with Dr. 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 Discharge Instructions Discharge Instructions Date of Service Nov 16, 2017. Admission Reason for Admission: Right Foot Wound Open And Draining Discharge Discharge Diagnosis / Problem: Infected diabetic right foot ulcer, CKD STAGE 3 , Diabetes Discharge Goals Goal(s): Decrease discomfort, Improve function, Improve disease control Activity Recommendations Activity Limitations: resume your previous activity . Instructions / Follow-Up Instructions / Follow-Up FOLLOW UP WITH YOUR PRIMARY CARE PROVIDER DR. CALABRESE ON 11/20 @ 10:55 AM FOLLOW UP WITH THE WOUND CLINIC ON SUNDAY NOVEMBER 19, 2017 AT 0840 CONTINUE DAILY WOUND CARE RIGHT PLANTAR FOOT WOUNDS TO BE DRESSED WITH AQUACEL AG AND OPTIFOAM FALL PRECAUTION MONITOR BLOOD SUGAR AND LIMITED CONCENTRATED SWEET INTAKE . Current Hospital Diet Patient's current hospital diet: AHA Diet (Heart Healthy), Diabetes Type 1 Diet Discharge Diet Recommended Diet: Diabetes Type 1 Diet Pending Studies Studies pending at discharge: no Laboratory Results Hemoglobin A1c Test 11/12/17 16:12 Range/Units Estimated Average Glucose 137 mg/dl Hemoglobin A1c 6.4 H 4.5-5.6 % Medical Emergencies . Who to Call and When: Medical Emergencies: If at any time you feel your situation is an emergency, please call 911 immediately. . Non-Emergent Contact Non-Emergency issues call your: Primary Care Provider Call Non-Emergent contact if: you have a fever, you have any medication questions . . "Provider Documentation" section prepared by Marianna Aguilar. . Additional Copies To Devon Calabrese D.O.
== END 2017-11-16 16:05 | disposition home or self-care (01) | DRG 638 ==
LOC: C.MSN 13:56
PROVIDERS: ADMIT Hospitalist; ATTEND Internal Medicine
DX: E10.621 Type 1 diabetes mellitus with foot ulcer (principal); I50.42 Chronic combined systolic (congestive) and diastolic (congestive) heart failure; L03.115 Cellulitis of right lower limb; L97.513 Non-pressure chronic ulcer of other part of right foot with necrosis of muscle; F98.8 Other specified behavioral and emotional disorders with onset usually occurring in childhood and adolescence; F41.8 Other specified anxiety disorders; I25.10 Atherosclerotic heart disease of native coronary artery without angina pectoris; N18.3 Chronic kidney disease, stage 3 (moderate); K21.9 Gastro-esophageal reflux disease without esophagitis; E10.51 Type 1 diabetes mellitus with diabetic peripheral angiopathy without gangrene; E03.9 Hypothyroidism, unspecified; Z95.1 Presence of aortocoronary bypass graft; Z82.49 Family history of ischemic heart disease and other diseases of the circulatory system; Z88.0 Allergy status to penicillin; Z88.1 Allergy status to other antibiotic agents; Z88.8 Allergy status to other drugs, medicaments and biological substances; Z79.82 Long term (current) use of aspirin; E10.21 Type 1 diabetes mellitus with diabetic nephropathy; Z79.4 Long term (current) use of insulin

== ENCOUNTER → 2017-11-29 | Outpatient (CLI) | payer OTHER ==
[~2017-11-29] MED LIST changes: -AMPH10TA2 PO; -AMPH30CA3 PO; +CEPH-571 PO; -CHOL100010 PO; +CHOL1TAB42 PO; -FRS/40 PO; -LAMO25TA PO; -LIOT5TAB PO; -MELA1TAB5 PO; +MELATAB2 PO; -MODA100T17 PO; -THYR1TAB15 PO; +THYR90TA6 PO; -TRAV0.00 OP
[2017-11-29 12:21] LABS: BASO % 0.6 %; BASO ABS # 0.04 K/uL (0-0.2); EOS % 1.7 %; EOS ABS # 0.12 K/uL (0-0.5); HEMATOCRIT 30.5 % (37-47); HEMOGLOBIN 9.6 g/dL (12.0-16.0); IG# 0.01 K/uL (0.00-0.02); LYMPH % 24.6 %; LYMPH ABS # 1.76 K/uL (1.2-3.4); MEAN CELL VOLUME 96.8 fL (80-100); MEAN CORPUSCULAR HEMOGLOBIN 30.5 pg (25-34); MEAN CORPUSCULAR HGB CONC 31.5 g/dl (32-36); MEAN PLATELET VOLUME 9.6 fL (7.4-10.4); MONO % 6.9 %; MONO ABS # 0.49 K/uL (0.11-0.59); NEUT % 66.1 %; NEUT ABS # 4.73 K/uL (1.4-6.5); PLATELET COUNT 281 K/uL (130-400); RED CELL DISTRIBUTION WIDTH CV 15.6 % (11.5-14.5); RED CELL DISTRIBUTION WIDTH SD 54.1 fL (36.4-46.3); WHITE BLOOD COUNT 7.15 K/uL (4.8-10.8)
[2017-11-29 12:40] LABS: ALBUMIN 3.5 gm/dl (3.4-5.0); BLOOD UREA NITROGEN 69 mg/dl (7-18); CALCIUM 9.7 mg/dl (8.5-10.1); CARBON DIOXIDE 20 mmol/L (21-32); CREATININE 1.91 mg/dl (0.60-1.20); GLUCOSE 209 mg/dl (70-99); SODIUM 137 mmol/L (136-145)
[2017-11-29 12:45] LABS: PHOSPHORUS 3.9 mg/dl (2.5-4.9)
== END | disposition home or self-care (01) ==
LOC: C.LABBFT 17:39
PROVIDERS: ATTEND Internal Medicine Nephrology
DX: N18.3 Chronic kidney disease, stage 3 (moderate) (principal); D64.9 Anemia, unspecified